=== PATIENT | female | born 1960 | race Caucasian/White ===

== ENCOUNTER 2017-11-19 07:39 | Outpatient (CLI) | payer BC, SELFPAY ==
[2017-11-19 08:19] LABS: Absolute Basophil Count 0.04 k/cumm (0.0-0.2); Absolute Eosinophil Count 0.15 k/cumm (0.0-0.7); Absolute Lymphocyte Count 1.65 k/cumm (1.2-3.4); Absolute Monocyte Count 0.35 k/cumm (0.11-0.7); Basophils % 0.9; Eosinophils % 3.4; HCT 37.5 % (36.0-46.0); HGB 12.2 g/dL (12.0-15.5); Lymphocytes % 37.8; Mean Corp. HGB Concentration 32.5 g/dL (32.0-36.0); Mean Corpuscular Hemoglobin 29.7 pg (27.0-33.0); Mean Corpuscular Volume 91.2 fL (80-95); Mean Platelet Volume 9.1 fL (8.0-11.0); Neutrophils % 49.9; Platelet Count 305 x1000/uL (130-400); RBC 4.11 m/cumm (4.00-5.20); RBC Distribution Width 13.3 % (11.7-14.6); White Blood Cell Count 4.36 k/cumm (4.4-10.8)
[2017-11-19 08:24] LABS: Absolute Neutrophil Count 2.18 k/cumm (1.2-6.7)
[2017-11-19 08:58] LABS: ALT 25 U/L (12-78); AST 20 U/L (15-37); Albumin 3.5 g/dL (3.4-5.0); Alkaline Phosphatase 104 U/L (46-116); Bilirubin, Direct 0.09 mg/dL (0.00-0.20); Bilirubin, Total 0.3 mg/dL (0.2-1.0); C-Reactive Protein 0.57 mg/dL (0.0-0.3); Total Protein 7.4 g/dL (6.4-8.2)
== END 2017-11-19 07:59 ==
PROVIDERS: PCP Internal Medicine; Visit Provider Internal Medicine Gastroenterology
DX: K50.10 Crohn's disease of large intestine without complications (principal)
CPT/HCPCS: 36415; 80076; 85025; 86140

== ENCOUNTER 2017-12-08 06:05 | Outpatient (CLI) | payer BC, SELFPAY ==
[2017-12-08 07:35] LABS: Abs Immature Grans 0.01 k/cumm (0.0-0.09); Absolute Basophil Count 0.05 k/cumm (0.0-0.2); Absolute Lymphocyte Count 2.28 k/cumm (1.2-3.4); Absolute Monocyte Count 0.49 k/cumm (0.11-0.7); Absolute Neutrophil Count 1.63 k/cumm (1.2-6.7); Basophils % 1.1; Eosinophils % 2.2; HCT 38.4 % (36.0-46.0); HGB 12.4 g/dL (12.0-15.5); Immature Grans % 0.2; Mean Corp. HGB Concentration 32.3 g/dL (32.0-36.0); Mean Corpuscular Hemoglobin 29.8 pg (27.0-33.0); Mean Corpuscular Volume 92.3 fL (80-95); Monocytes % 10.7; Neutrophils % 35.8; Platelet Count 288 x1000/uL (130-400); RBC 4.16 m/cumm (4.00-5.20); RBC Distribution Width 13.4 % (11.7-14.6); White Blood Cell Count 4.56 k/cumm (4.4-10.8)
[2017-12-08 07:48] LABS: ALT 28 U/L (12-78); AST 20 U/L (15-37); Albumin 3.3 g/dL (3.4-5.0); Alkaline Phosphatase 94 U/L (46-116); Bilirubin, Direct 0.09 mg/dL (0.00-0.20); Bilirubin, Total 0.4 mg/dL (0.2-1.0); C-Reactive Protein 0.09 mg/dL (0.0-0.3); Total Protein 6.9 g/dL (6.4-8.2)
== END 2017-12-08 06:25 ==
PROVIDERS: PCP Internal Medicine; Visit Provider Internal Medicine Gastroenterology
DX: K50.10 Crohn's disease of large intestine without complications (principal)
CPT/HCPCS: 36415; 80076; 85025; 86140

== ENCOUNTER 2017-12-17 05:49 | Outpatient (CLI) | payer BC, SELFPAY ==
[2017-12-21 15:54] LABS: Adalimumab QN with Reflex Ab 12.8 mcg/mL
== END 2017-12-17 06:09 ==
PROVIDERS: PCP Internal Medicine; Visit Provider Internal Medicine Gastroenterology
DX: K50.80 Crohn's disease of both small and large intestine without complications (principal)
CPT/HCPCS: 36415; 80299

== ENCOUNTER 2018-01-06 10:42 | Outpatient (CLI) | payer BC, SELFPAY ==
[2018-01-06 16:46] LABS: Absolute Basophil Count 0.05 k/cumm (0.0-0.2); Absolute Eosinophil Count 0.11 k/cumm (0.0-0.7); Absolute Lymphocyte Count 2.35 k/cumm (1.2-3.4); Absolute Monocyte Count 0.43 k/cumm (0.11-0.7); Absolute Neutrophil Count 2.12 k/cumm (1.2-6.7); Eosinophils % 2.2; HCT 39.6 % (36.0-46.0); Lymphocytes % 46.4; Mean Corp. HGB Concentration 32.8 g/dL (32.0-36.0); Mean Corpuscular Hemoglobin 29.7 pg (27.0-33.0); Mean Corpuscular Volume 90.6 fL (80-95); Monocytes % 8.5; Neutrophils % 41.9; Platelet Count 260 x1000/uL (130-400); RBC 4.37 m/cumm (4.00-5.20); RBC Distribution Width 12.6 % (11.7-14.6); White Blood Cell Count 5.06 k/cumm (4.4-10.8)
[2018-01-06 19:34] LABS: ALT 35 U/L (12-78); AST 22 U/L (15-37); Albumin 3.6 g/dL (3.4-5.0); Alkaline Phosphatase 76 U/L (46-116); Bilirubin, Direct 0.07 mg/dL (0.00-0.20); Bilirubin, Total 0.2 mg/dL (0.2-1.0); C-Reactive Protein 0.08 mg/dL (0.0-0.3); Total Protein 7.1 g/dL (6.4-8.2)
== END 2018-01-06 11:02 ==
PROVIDERS: PCP Internal Medicine; Visit Provider Internal Medicine Gastroenterology
DX: K50.10 Crohn's disease of large intestine without complications (principal)
CPT/HCPCS: 36415; 80076; 85025; 86140

== ENCOUNTER 2018-02-05 00:58 | Outpatient (CLI) | payer BC, SELFPAY ==
[2018-02-05 07:38] LABS: Abs Immature Grans 0.01 k/cumm (0.0-0.09); Absolute Basophil Count 0.03 k/cumm (0.0-0.2); Absolute Eosinophil Count 0.09 k/cumm (0.0-0.7); Absolute Lymphocyte Count 2.14 k/cumm (1.2-3.4); Absolute Monocyte Count 0.43 k/cumm (0.11-0.7); Absolute Neutrophil Count 2.12 k/cumm (1.2-6.7); Basophils % 0.6; Eosinophils % 1.9; HCT 37.6 % (36.0-46.0); HGB 12.3 g/dL (12.0-15.5); Immature Grans % 0.2; Lymphocytes % 44.4; Mean Corp. HGB Concentration 32.7 g/dL (32.0-36.0); Mean Corpuscular Hemoglobin 29.8 pg (27.0-33.0); Mean Platelet Volume 8.9 fL (8.0-11.0); Monocytes % 8.9; Platelet Count 300 x1000/uL (130-400); RBC 4.13 m/cumm (4.00-5.20); RBC Distribution Width 12.6 % (11.7-14.6); White Blood Cell Count 4.82 k/cumm (4.4-10.8)
[2018-02-05 09:40] LABS: ALT 33 U/L (12-78); AST 20 U/L (15-37); Albumin 3.6 g/dL (3.4-5.0); Alkaline Phosphatase 73 U/L (46-116); Bilirubin, Direct 0.08 mg/dL (0.00-0.20); Bilirubin, Total 0.3 mg/dL (0.2-1.0); C-Reactive Protein 0.13 mg/dL (0.0-0.3); Total Protein 6.9 g/dL (6.4-8.2)
[2018-02-05 10:31] LABS: Vitamin B12 396 pg/mL (193-986)
[2018-02-08 22:04] LABS: Adalimumab QN with Reflex Ab 11.9 mcg/mL
== END 2018-02-05 01:18 ==
PROVIDERS: PCP Internal Medicine; Visit Provider Internal Medicine Gastroenterology
DX: K50.10 Crohn's disease of large intestine without complications (principal); K50.119 Crohn's disease of large intestine with unspecified complications; K50.80 Crohn's disease of both small and large intestine without complications
CPT/HCPCS: 36415; 80076; 80299; 82607; 85025; 86140

== ENCOUNTER 2018-02-22 01:22 | Outpatient (CLI) | payer BC, SELFPAY ==
--- NOTE | 2018-02-22 12:30 | DI.MAMMO_ITS ---
SYMPTOMS/DIAGNOSIS: SCREENING, Z12.31 MAMMOGRAMS: Mammograms were interpreted according to the usual protocol including computer analysis with CAD system, tomosynthesis and C view imaging. Comparison is with the prior examinations. No suspicious masses or microcalcifications are seen. There is no definite evidence of malignancy. IMPRESSION: Negative mammogram. Routine screening is recommended. Category 1, breast density B. MQSA ASSESSMENT OF FINDINGS: Negative. Category 1. Patient will receive a letter notifying them of these results. BI-RADS category B. There are scattered areas of fibroglandular density.
== END 2018-02-22 01:42 ==
PROVIDERS: PCP Internal Medicine; Visit Provider Internal Medicine
DX: Z12.31 Encounter for screening mammogram for malignant neoplasm of breast (principal)
CPT/HCPCS: 77063; 77067

== ENCOUNTER 2018-03-03 10:33 | Outpatient (CLI) | payer BC, SELFPAY ==
[2018-03-03 17:04] LABS: Absolute Basophil Count 0.03 k/cumm (0.0-0.2); Absolute Eosinophil Count 0.15 k/cumm (0.0-0.7); Absolute Lymphocyte Count 2.37 k/cumm (1.2-3.4); Absolute Neutrophil Count 2.91 k/cumm (1.2-6.7); Basophils % 0.5; Eosinophils % 2.5; HCT 37.3 % (36.0-46.0); HGB 12.3 g/dL (12.0-15.5); Lymphocytes % 39.8; Mean Corpuscular Hemoglobin 29.9 pg (27.0-33.0); Mean Corpuscular Volume 90.8 fL (80-95); Monocytes % 8.4; Neutrophils % 48.8; Platelet Count 276 x1000/uL (130-400); RBC 4.11 m/cumm (4.00-5.20); RBC Distribution Width 12.7 % (11.7-14.6); White Blood Cell Count 5.96 k/cumm (4.4-10.8)
[2018-03-03 17:38] LABS: ALT 37 U/L (12-78); AST 24 U/L (15-37); Albumin 3.7 g/dL (3.4-5.0); Alkaline Phosphatase 78 U/L (46-116); Bilirubin, Direct 0.06 mg/dL (0.00-0.20); Bilirubin, Total 0.2 mg/dL (0.2-1.0); C-Reactive Protein 0.05 mg/dL (0.0-0.3); Total Protein 7.2 g/dL (6.4-8.2)
== END 2018-03-03 10:53 ==
PROVIDERS: PCP Internal Medicine; Visit Provider Internal Medicine Gastroenterology
DX: K50.10 Crohn's disease of large intestine without complications (principal)
CPT/HCPCS: 36415; 80076; 85025; 86140

== ENCOUNTER 2018-11-09 14:52 | Outpatient (REF) | payer BC, SELFPAY ==
[2018-11-12 18:22] LABS: Calprotectin 136.6 mcg/g
== END 2018-11-09 15:12 ==
LOC: LBN 14:52
PROVIDERS: PCP Internal Medicine; Visit Provider Nurse Practitioner Adult Health
DX: K50.811 Crohn's disease of both small and large intestine with rectal bleeding (principal)
CPT/HCPCS: 83993

== ENCOUNTER 2019-05-19 07:44 | Outpatient (REF) | payer BC, SELFPAY ==
[2019-05-20 21:45] LABS: Calprotectin 115.3 mcg/g
== END 2019-05-19 08:04 ==
LOC: LBN 07:44
PROVIDERS: PCP Internal Medicine; Visit Provider Nurse Practitioner Adult Health
DX: K50.811 Crohn's disease of both small and large intestine with rectal bleeding (principal)
CPT/HCPCS: 83993; 87324

== ENCOUNTER 2019-06-16 01:35 | Outpatient (CLI) | payer BC, SELFPAY ==
[2019-06-20 21:59] LABS: Adalimumab QN with Reflex Ab 14.1 mcg/mL
== END 2019-06-16 01:55 ==
PROVIDERS: PCP Internal Medicine; Visit Provider Nurse Practitioner Adult Health
DX: K50.811 Crohn's disease of both small and large intestine with rectal bleeding (principal)
CPT/HCPCS: 36415; 83520

== ENCOUNTER 2019-09-12 00:32 | Outpatient (CLI) | payer BC, SELFPAY ==
--- NOTE | 2019-09-12 12:15 | DI.MAMMO_ITS ---
EXAM: MAMMO SCREENING CLINICAL HISTORY: screening, Z12.39 TECHNIQUE: Mammograms were interpreted according to the usual protocol including computer analysis w [employer] CAD system, tomosynthesis and C-view imaging. COMPARISON: 2010 through 2017 FINDINGS: The breasts are composed of scattered fibroglandular densities, Breast Density category B. No suspicious masses or suspicious microcalcifications are seen. Scarring is again noted in the suba reolar region of the right breast. No skin thickening or abnormal axillary lymph nodes are seen. There has been no significant change from prior exams. IMPRESSION: BI-RADS Category 2 - Benign Findings Yearly screening mammography is recommended. Breast Density Category B, scattered fibroglandular densities.
== END 2019-09-12 00:52 ==
PROVIDERS: PCP Internal Medicine; Visit Provider Internal Medicine
DX: Z12.31 Encounter for screening mammogram for malignant neoplasm of breast (principal)
CPT/HCPCS: 77063; 77067

== ENCOUNTER 2020-09-14 04:16 | Outpatient (CLI) | payer BC, SELFPAY ==
--- NOTE | 2020-09-14 06:45 | DI.MAMMO_ITS ---
Exam(s) MAMMO SCREENING EXAM: MAMMO SCREENING CLINICAL HISTORY: screening,Z12.39 TECHNIQUE: Mammograms were interpreted according to the usual protocol including computer analysis w [employer] CAD system, tomosynthesis and C-view imaging. COMPARISON: 2010 through 2019 FINDINGS: The breasts are composed of scattered fibroglandular densities, Breast Density category B. No suspicious masses or suspicious microcalcifications are seen. Scarring in the subareolar region o f the right breast and upper outer left breast. No skin thickening or abnormal axillary lymph nodes are seen. There has been no significant change from prior exams. IMPRESSION: BI-RADS Cat 2 - Benign Findings Yearly screening mammography is recommended. Breast Density - Category B, scattered fibroglandular densities. A negative radiographic report should not delay biopsy if a dominant or clinically suspicious mass is present. Up to ten percent of cancers are not identified on mammography. A negative report may reinforce clinical impression. Adenosis and dense breasts may obscure an underlying neoplasm. False positive reports average 6 to 10%. Patient will receive a letter notifying them of these results.
== END 2020-09-14 04:36 ==
PROVIDERS: PCP Internal Medicine; Visit Provider Internal Medicine
DX: Z12.31 Encounter for screening mammogram for malignant neoplasm of breast (principal); R92.8 Other abnormal and inconclusive findings on diagnostic imaging of breast
CPT/HCPCS: 77063; 77067

== ENCOUNTER 2020-09-26 14:40 | Outpatient (CLI) | payer BC, SELFPAY ==
--- NOTE | 2020-09-26 13:45 | DI.RAD_ITS ---
Exam(s) XR HIP RT COMPLETE AP PELVIS EXAM: XR HIP RT COMPLETE AP PELVIS CLINICAL HISTORY: Rt hip pain, M25.551. TECHNIQUE: 2D digital imaging was performed. COMPARISON: No exams were available for comparison FINDINGS: There is no evidence of pelvic or hip fracture. No hip joint space narrowing. However, there is a c orticated calcification just above the greater trochanter of the right hip which measures 7 by 2 mill imeters this is corticated and therefore unlikely to be an acute fracture fragment. Possibly capsula r calcification. There is no narrowing of either hip joint space. No osteophytes evident. Bone den sity is normal. No osseous lesions. Sacroiliac joints unremarkable. IMPRESSION: DATA REPOSITORY: RADIATION DOSE DELIVERED:
== END 2020-09-26 15:00 ==
PROVIDERS: PCP Internal Medicine; Visit Provider Internal Medicine
DX: M25.551 Pain in right hip (principal)
CPT/HCPCS: 73502

== ENCOUNTER 2020-12-26 03:53 | Outpatient (CLI) | payer BC, SELFPAY ==
[2020-12-26 08:51] LABS: Calculated LDL 178 mg/dL (<100); Cholesterol 289 mg/dL (<200); HDL Cholesterol 91 mg/dL (40-60); Triglyceride 104 mg/dL (<150); Vitamin B12 273 pg/mL (193-986)
== END 2020-12-26 03:54 | disposition home or self-care (01) ==
LOC: LBO 03:54
PROVIDERS: PCP Internal Medicine; Visit Provider Internal Medicine
DX: K50.90 Crohn's disease, unspecified, without complications (principal); Z13.220 Encounter for screening for lipoid disorders
CPT/HCPCS: 36415; 80061; 82607

== ENCOUNTER 2021-06-03 11:12 | Outpatient (CLI) | payer BC, SELFPAY ==
--- NOTE | 2021-06-03 14:15 | DI.RAD_ITS ---
Exam(s) XR CHEST 2V PA LATERAL EXAM: XR CHEST 2V PA LATERAL CLINICAL HISTORY: CROHNS DISEASE,K50.811,ON ANTI TNF,RECENT POS QUANT GOLD, ? TB CHANGES TECHNIQUE: 2D digital imaging was performed. COMPARISON: No exams were available for comparison FINDINGS: MEDIASTINUM: Normal. No visible adenopathy. No mediastinal calcifications. HEART: Normal. PULMONARY VASCULATURE: Normal. LUNGS: Clear. No visible nodules. No visible interstitial changes. PLEURAL SPACE: No pleural effusion or pneumothorax. BONE:Unremarkable for age. IMPRESSION: No acute abnormality. No findings to suggest TB. DATA REPOSITORY: RADIATION DOSE DELIVERED:
== END 2021-06-03 11:32 ==
PROVIDERS: PCP Internal Medicine; Visit Provider Internal Medicine Gastroenterology
DX: K50.811 Crohn's disease of both small and large intestine with rectal bleeding (principal); Z79.899 Other long term (current) drug therapy; R76.11 Nonspecific reaction to tuberculin skin test without active tuberculosis
CPT/HCPCS: 71046

== ENCOUNTER 2021-12-10 01:52 | Outpatient (CLI) | payer BC, SELFPAY ==
[2021-12-10 07:28] LABS: Abs Immature Grans 0.01 10^3/uL (0.0-0.06); Absolute Basophil Count 0.06 10^3/uL (0.0-0.2); Absolute Eosinophil Count 0.29 10^3/uL (0.0-0.7); Absolute Lymphocyte Count 2.57 10^3/uL (1.2-3.4); Absolute Monocyte Count 0.47 10^3/uL (0.1-0.8); Absolute Neutrophil Count 2.27 10^3/uL (1.2-6.7); Basophils % 1.1; Eosinophils % 5.1; HCT 38.8 % (36.0-46.0); HGB 12.7 g/dL (11.2-15.7); Immature Grans % 0.2; Lymphocytes % 45.3; MCH 30.2 pg (27.0-33.0); MCHC 32.7 % (32.0-36.0); MCV 92 fL (80-95); MPV 9.6 fL (8.0-11.0); Monocytes % 8.3; Platelet Count 216 10^3/uL (130-400); RDW 11.9 % (11.7-14.6); RDW-SD 40.2 fL; WBC 5.67 10^3/uL (4.4-10.8)
[2021-12-10 08:42] LABS: Calculated LDL 139 mg/dL (<100); Cholesterol 259 mg/dL (<200); HDL Cholesterol 100 mg/dL (40-60); Triglyceride 103 mg/dL (<150)
[2021-12-10 08:45] LABS: ALT 30 U/L (14-59); AST 22 U/L (15-37); Albumin 3.7 g/dL (3.4-5.0); Alkaline Phosphatase 77 U/L (46-116); Bilirubin, Direct 0.1 mg/dL (0.0-0.2); Bilirubin, Total 0.4 mg/dL (0.2-1.0); C-Reactive Protein 0.18 mg/dL (0.0-0.3); Total Protein 7.4 g/dL (6.4-8.2)
== END 2021-12-10 01:53 | disposition home or self-care (01) ==
LOC: LBO 01:53
PROVIDERS: Internal Medicine Gastroenterology; PCP Internal Medicine; Visit Provider Internal Medicine
DX: E78.00 Pure hypercholesterolemia, unspecified (principal); K50.119 Crohn's disease of large intestine with unspecified complications
CPT/HCPCS: 36415; 80061; 80076; 85025; 86140

== ENCOUNTER → 2022-01-23 02:02 | Outpatient (CLI) | payer BC, SELFPAY ==
--- NOTE | 2022-01-23 08:27 | DI.MAMMO_ITS ---
Exam(s) MAMMO SCREENING EXAM: MAMMO SCREENING CLINICAL HISTORY: screening,Z12.39 TECHNIQUE: Mammograms were interpreted according to the usual protocol including computer analysis w [facility] [employer] system, tomosynthesis and C-view imaging. COMPARISON: FINDINGS: The breasts are of moderate density with somewhat asymmetrical distribution of fibroglandular tissue. There are multiple areas nodularity in the left breast, unchanged from prior examinations including September 2020. No new mass or clumped microcalcification identified in either breast. IMPRESSION: No specific evidence of malignancy at this time. Routine screening examinations are suggested at yea rly intervals in this age group according to the ACS ACR guidelines. BI-RADS Category 1 - Negative Breast Density - Category B - Scattered areas of fibroglandular density
== END ==
PROVIDERS: PCP Nurse Practitioner Adult Health; Visit Provider Nurse Practitioner Adult Health
DX: Z12.31 Encounter for screening mammogram for malignant neoplasm of breast (principal)
CPT/HCPCS: 77063; 77067

== ENCOUNTER 2022-07-17 03:16 | Outpatient (CLI) | payer BC, SELFPAY ==
[2022-07-17] MEDS: Albuterol HFA 18 GM 200 PUFF INH IH (11:37)
[2022-07-17] MEDS: Inhaler, Assist Device 1 EACH MC (11:37)
--- NOTE | 2022-07-18 13:09 | W.PFT ---
Date of service: 07/17/22 Time of Service: 10:04 Pulmonary Function Test Result Indications: Wheezing Interpretation Spirometry: There is no airflow limitation. Ther eis no significant bronchodilator response. Lung Volumes: Normal lung volumes Diffusion Capacity: Normal diffusion Airway Pressure: Normal airways resistance Impression Normal pulmonary function testing. Clinical Correlation therefore is recommended.
== END 2022-07-17 03:17 | disposition home or self-care (01) ==
LOC: RT 03:16
PROVIDERS: PCP Nurse Practitioner Adult Health; Visit Provider Nurse Practitioner Adult Health
DX: Z82.5 Family history of asthma and other chronic lower respiratory diseases (principal); Z87.891 Personal history of nicotine dependence; J45.909 Unspecified asthma, uncomplicated; Z77.22 Contact with and (suspected) exposure to environmental tobacco smoke (acute) (chronic)
CPT/HCPCS: 94060; 94726; 94729

== ENCOUNTER → 2023-02-03 01:24 | Outpatient (CLI) | payer BC, SELFPAY ==
--- NOTE | 2023-02-03 08:30 | DI.MAMMO_ITS ---
Exam(s) MAMMO SCREENING EXAM: MAMMO SCREENING CLINICAL HISTORY: screening,Z12.39. TECHNIQUE: Bilateral full field digital CC and MLO mammographic images were obtained with 3D tomosyn thesis and utilizing computer aided detection (CAD). COMPARISON: Prior mammograms were reviewed. FINDINGS: No new right breast findings. In the left breast there are multiple small benign-appearing unchanged nodular densities. However, in the retroareolar region slightly lateral of center there is a 7 x 5 mm nodular density lo cated 2 cm in from the nipple, lateral of center which appears more prominent than on prior mammogram s and may represent significant nodule. No malignant-appearing microcalcification groups in this region nor elsewhere in either breast There is no significant architectural distortion nor skin thickening-retraction. IMPRESSION: 1. No radiographic evidence of malignancy in the right breast. 2. Asymmetric density-possible nodule larger than previous located anteriorly, lateral of center in t he left breast as described above. Spot compression view and ultrasound recommended BI-RADS Category 0 - Assessment Incomplete: Need additional imaging evaluation Breast Density - Category B - Scattered areas of fibroglandular density Breast density Category C or D implies that the patient has dense breast tissue. Dense breast tissue can make it harder to find cancer on a mammogram. Dense breast tissue is also associated with an incr eased risk of breast cancer. This information about the result of the mammogram report was provided to the patient to raise their awareness. Use this report when you speak with the patient about their risks for breast cancer, which includes their family history. At that time, you may recommend additional screening tests (Ultrasoun d or MRI) as these tests may add significant information. A negative radiographic report should not delay biopsy if a dominant or clinically suspicious mass is present. Up to ten percent of cancers are not identified on mammography. A negative report may reinforce clinical impression. Adenosis and dense breasts may obscure an underlying neoplasm. False positive reports average 6 to 10%. Patient will receive a letter notifying them of these results.
== END ==
PROVIDERS: PCP Nurse Practitioner Adult Health; Visit Provider Nurse Practitioner Adult Health
DX: Z12.31 Encounter for screening mammogram for malignant neoplasm of breast (principal); R92.8 Other abnormal and inconclusive findings on diagnostic imaging of breast
CPT/HCPCS: 77063; 77067

== ENCOUNTER → 2023-02-09 02:22 | Outpatient (CLI) | payer BC, SELFPAY ==
--- NOTE | 2023-02-09 | DI.MAMMO_ITS ---
Exam(s) MG MAMMO SCREEN CALL BACK UNI US BREAST LT COMPLETE EXAM: MG MAMMO SCREEN CALL BACK UNI-LEFT THE LEFT BREAST ULTRASOUND CLINICAL HISTORY: ASYMMETRIC DENSITY POSSIBLE NODULE LEFT BREAST R92.8 ABNL MAMMO. TECHNIQUE: Unilateral LEFT BREAST spot mammographic images obtained with 3D tomosynthesisand [employer] ng computer aided detection (CAD). . Complete LEFT breast Ultrasound was also performed, including all 4 quadrants, the retroareolar regio n, and the ipsilateral axilla. COMPARISON: Prior mammograms were reviewed. This additional imaging was performed due to findings described on the recent screening mammogram of 02/03/23. FINDINGS: DIAGNOSTIC MAMMOGRAM: Additional mammographic views performed todaydo not dissipate the finding described on the recent scr eening mammogram COMPLETE LEFT BREAST ULTRASOUND: Ultrasound performed today reveals a 6 x 4 millimeter benign microcyst at the 1 o'clock position, briana roximately 8 cm in from the nipple. At the 12 o'clock position there is a 7 x 4 millimeter finding intimately associated with a retroareo lar duct which appears to correspond to the finding on the mammogram and has appearance of a conglome ration of microcysts. Increased associated through transmission. No decreased through transmission. All findings in the 4 quadrants of the left breast. Scanning of the ipsilateral axilla reveals no significant adenopathy. IMPRESSION: 1. Benign-appearing left breast findings as described above. Appropriate follow-up as discussed by myself with the patient today is repeat left breast imaging in 6 months, to include repeat left breast mammogram and ultrasound.. The patient was informed of these findings and recommendations by myself prior to leaving the departm ent today. BI-RADS Category 3 - 6 month - Probably Benign Finding: Recommend follow-up mammography in 6 months Breast Density - Category B - Scattered areas of fibroglandular density Breast density Category C or D implies that the patient has dense breast tissue. Dense breast tissue can make it harder to find cancer on a mammogram. Dense breast tissue is also associated with an incr eased risk of breast cancer. This information about the result of the mammogram report was provided to the patient to raise their awareness. Use this report when you speak with the patient about their risks for breast cancer, which includes their family history. At that time, you may recommend additional screening tests (Ultrasoun d or MRI) as these tests may add significant information. A negative radiographic report should not delay biopsy if a dominant or clinically suspicious mass is present. Up to ten percent of cancers are not identified on mammography. A negative report may reinforce clinical impression. Adenosis and dense breasts may obscure an underlying neoplasm. False positive reports average 6 to 10%. Patient will receive a letter notifying them of these results.
== END ==
PROVIDERS: PCP Nurse Practitioner Adult Health; Visit Provider Nurse Practitioner Adult Health
DX: Z12.31 Encounter for screening mammogram for malignant neoplasm of breast (principal); N60.01 Solitary cyst of right breast
CPT/HCPCS: 76642; 77063; 77067

== ENCOUNTER 2023-03-03 03:34 | Outpatient (CLI) | payer BC, SELFPAY ==
[2023-03-03 08:20] LABS: Vitamin D 25 Total 26.9 ng/mL (30-100)
[2023-03-03 08:24] LABS: Anion Gap 4.9 mmol/L (3-11); BUN 21 mg/dL (7-18); CO2 30.1 mmol/L (21.0-32.0); CREATININE 0.7 mg/dL (0.55-1.02); Calcium 8.8 mg/dL (8.5-10.1); Calculated LDL 151 mg/dL (<100); Chloride 105 mmol/L (98-107); Cholesterol 267 mg/dL (<200); Estimated GFR 97.12 (mL/min/1.73m2); Glucose 100 mg/dL (74-106); HDL Cholesterol 96 mg/dL (40-60); Potassium 4.3 mmol/L (3.5-5.1); Sodium 140 mmol/L (136-145); Triglyceride 103 mg/dL (<150); Vitamin B12 1122 pg/mL (193-986)
== END 2023-03-03 03:35 | disposition home or self-care (01) ==
LOC: LBO 03:34
PROVIDERS: Absent Provider Nurse Practitioner Adult Health; PCP Nurse Practitioner Adult Health; Visit Provider Nurse Practitioner Adult Health
DX: Z82.62 Family history of osteoporosis (principal); E53.8 Deficiency of other specified B group vitamins; E78.00 Pure hypercholesterolemia, unspecified
CPT/HCPCS: 36415; 80048; 80061; 82306; 82607

== ENCOUNTER → 2023-07-28 11:07 | Outpatient (CLI) | payer BC, SELFPAY ==
--- NOTE | 2023-07-28 11:34 | DI.RAD_ITS ---
Exam(s) XR CHEST 2V PA LATERAL EXAM: XR CHEST 2V PA LATERALzz CLINICAL HISTORY: BRONCHITIS, J40 TECHNIQUE: 2D digital imaging was performed. Two views. COMPARISON: No exams were available for comparison FINDINGS: HEART: Normal size. Aorta: Not dilated. PULMONARY VASCULATURE: Normal. LUNGS: Clear. PLEURAL SPACE: No pleural effusion or pneumothorax. BONE:Unremarkable for age. Soft tissues: Unremarkable. IMPRESSION: No acute abnormality. DATA REPOSITORY: RADIATION DOSE DELIVERED:
== END ==
PROVIDERS: PCP Nurse Practitioner Adult Health; Visit Provider Internal Medicine Gastroenterology
DX: J40 Bronchitis, not specified as acute or chronic (principal)
CPT/HCPCS: 71046

== ENCOUNTER → 2023-08-11 01:01 | Outpatient (CLI) | payer BC, SELFPAY ==
--- NOTE | 2023-08-11 08:30 | DI.MAMMO_ITS ---
Exam(s) US BREAST LT COMPLETE MG MAMMO DIAGNOSTIC UNI EXAM: MG MAMMO DIAGNOSTIC UNI-LEFT AND COMPLETE LEFT BREAST ULTRASOUND CLINICAL HISTORY: f/u abnormal, R92.8, f/u abnl mammo lt breast. TECHNIQUE: Unilateral left breast cc and MLO mammographic images were obtained with 3D tomosynthesis technique and utilizing computer aided detection (CAD). Complete left breast ultrasound was performed including all 4 quadrants as well as the axillary regio n. COMPARISON: Prior mammograms were reviewed, the most recent being 02/03/2023 was followed up by lorena keltic study on 02/09/2023. Ultrasound of 02/09/2023 was also reviewed. FINDINGS: DIAGNOSTIC LEFT BREAST MAMMOGRAM: Findings are unchanged from 01/26/2023. The relatively retroareolar region finding is unchanged in s ize and configuration as are the chronically present benign-appearing nodules in the upper outer quad rant. We proceeded with ultrasound THE LEFT BREAST ULTRASOUND: Findings are unchanged from the ultrasound exam of 02/09/2023. At the 1 o'clock position there is an unchanged 6 x 4 mm benign microcyst. At the 12 o'clock position the previously described 7 x 4 mm finding intimately associated with retro areolar ducts is again noted and appears unchanged and has appearance of a small conglomeration of mi crocysts. Obvious solid papilloma evident nor other worrisome lesion evident ultrasound. At the 3 o'clock position there is a small benign intramammary lymph node measuring 4 x 3 mm noted. IMPRESSION: 1. Stable benign-appearing left breast mammogram and ultrasound findings, as described above Appropriate follow-up is to keep this patient on her yearly mammogram schedule, implying the next velma ateral mammogram would be in January 2024, with earlier imaging if a self detected breast change is noted. The patient elected not to be informed informed of the findings and follow-up recommendations prior t o leaving the department today. BI-RADS Category 2 - Benign Findings Breast Density - Category B - Scattered areas of fibroglandular density Breast density Category C or D implies that the patient has dense breast tissue. Dense breast tissue can make it harder to find cancer on a mammogram. Dense breast tissue is also associated with an incr eased risk of breast cancer. This information about the result of the mammogram report was provided to the patient to raise their awareness. Use this report when you speak with the patient about their risks for breast cancer, which includes their family history. At that time, you may recommend additional screening tests (Ultrasoun d or MRI) as these tests may add significant information. A negative radiographic report should not delay biopsy if a dominant or clinically suspicious mass is present. Up to ten percent of cancers are not identified on mammography. A negative report may reinforce clinical impression. Adenosis and dense breasts may obscure an underlying neoplasm. False positive reports average 6 to 10%. Patient will receive a letter notifying them of these results.
== END ==
PROVIDERS: PCP Nurse Practitioner Adult Health; Visit Provider Nurse Practitioner Adult Health
DX: R92.8 Other abnormal and inconclusive findings on diagnostic imaging of breast (principal); Z12.31 Encounter for screening mammogram for malignant neoplasm of breast
CPT/HCPCS: 76642; 77061; 77065; G0279

== ENCOUNTER 2023-12-17 00:54 | Outpatient (CLI) | payer BC, SELFPAY ==
--- NOTE | 2023-12-17 12:15 | DI.DEXA_ITS ---
Exam(s) XR DEXA BONE DENSITY W/WO SALOMON EXAM: XR DEXA BONE DENSITY W/WO SALOMON CLINICAL HISTORY: assess for osteoporosis in postmenopausal woman,family h/o osteoporosis, TECHNIQUE: Routine DEXA evaluation of the lumbar spine, hip, or forearm. COMPARISON: No exams were available for comparison FINDINGS: Performed on a Hologic unit. Lateral image: No compression fracture evident. Lumbar Spine total T-score: -2.2 Hip total T-score:-0.7 Independent reading at the level of the femoral neck yields T-score of -1.5 Forearm total T-score: -1.5 IMPRESSION: Bone mineral density measures in the osteopenia range. Fracture risk is moderate. Note: Any spine fracture indicates 5x risk for subsequent spine fracture and 2x risk for subsequent h ip fracture. World Health Organization criteria for BMD interpretation classify patients: Normal...... T- Score at or above -1.0 Osteopenic... T- Score between -1.0 and -2.5 Osteoporosis... T-Score at or below -2.5
== END 2023-12-17 01:14 ==
PROVIDERS: PCP Nurse Practitioner Adult Health; Visit Provider Nurse Practitioner Adult Health
DX: Z13.820 Encounter for screening for osteoporosis (principal); M81.0 Age-related osteoporosis without current pathological fracture
CPT/HCPCS: 77080

== ENCOUNTER 2024-02-08 01:51 | Outpatient (CLI) | payer BC, SELFPAY ==
--- NOTE | 2024-02-08 07:00 | DI.MAMMO_ITS ---
Exam(s) MAMMO SCREENING EXAM: MAMMO SCREENING CLINICAL HISTORY: screening,Z12.39 TECHNIQUE: Mammograms were interpreted according to the usual protocol including computer analysis w [employer] CAD system, tomosynthesis and C-view imaging. COMPARISON: 2014 through 11 August 2023 FINDINGS: The breasts are composed of scattered fibroglandular densities, Breast Density category B. No suspicious masses or suspicious microcalcifications are seen. No skin thickening or abnormal axillary lymph nodes are seen. There has been no significant change from prior exams. IMPRESSION: BI-RADS Category 1, Negative mammogram Yearly screening mammography is recommended. Breast Density - Category B, scattered fibroglandular densities. A negative radiographic report should not delay biopsy if a dominant or clinically suspicious mass is present. Up to ten percent of cancers are not identified on mammography. A negative report may reinforce clinical impression. Adenosis and dense breasts may obscure an underlying neoplasm. False positive reports average 6 to 10%. Patient will receive a letter notifying them of these results.
== END 2024-02-08 02:11 ==
LOC: DI 01:51
PROVIDERS: PCP Nurse Practitioner Adult Health; Visit Provider Nurse Practitioner Adult Health
DX: Z12.31 Encounter for screening mammogram for malignant neoplasm of breast (principal); R92.323 Mammographic fibroglandular density, bilateral breasts
CPT/HCPCS: 77063; 77067

== ENCOUNTER 2024-03-23 03:11 | Outpatient (CLI) | payer MEDICARE, SELFPAY ==
[2024-03-23 11:50] LABS: ALT 28 U/L (14-59); AST 21 U/L (15-37); Albumin 3.8 g/dL (3.4-5.0); Alkaline Phosphatase 80 U/L (46-116); BUN 20 mg/dL (7-18); Bilirubin, Total 0.51 mg/dL (0.2-1.0); CREATININE 0.8 mg/dL (0.55-1.02); Calcium 8.9 mg/dL (8.5-10.1); Calculated LDL 154 mg/dL (<100); Chloride 106 mmol/L (98-107); Cholesterol 284 mg/dL (<200); Estimated GFR 81.72 (mL/min/1.73m2); Glucose 95 mg/dL (74-106); HDL Cholesterol 112 mg/dL (40-60); Potassium 4.3 mmol/L (3.5-5.1); Sodium 142 mmol/L (136-145); Total Protein 7.4 g/dL (6.4-8.2); Triglyceride 90 mg/dL (<150); Vitamin B12 > 2000 pg/mL (193-986); Vitamin D 25 Total 43.6 ng/mL (30-100)
== END 2024-03-23 03:12 | disposition home or self-care (01) ==
PROVIDERS: PCP Nurse Practitioner Adult Health; Visit Provider Nurse Practitioner Adult Health
DX: E78.00 Pure hypercholesterolemia, unspecified (principal); Z91.89 Other specified personal risk factors, not elsewhere classified; E53.8 Deficiency of other specified B group vitamins; Z82.62 Family history of osteoporosis; K50.919 Crohn's disease, unspecified, with unspecified complications
CPT/HCPCS: 36415; 80053; 80061; 82306; 82607

== ENCOUNTER 2024-04-14 02:01 | Outpatient (CLI) | payer MEDICARE, SELFPAY ==
--- OUTSIDE RECORDS SUMMARY | 2024-04-14 02:10 | XMS_ITS | Encounter Summary ---
[place] [address] Care Team Providers Care Department Operations Manager Name Role Phone Karey Robert APRN Primary Care Provider [phone] Encounter Details Date Type Department Care Team (Latest Contact Info) Description 10/30/2023 Specialty [place] [address] Mel Davis, ALIREZA Refill Coordination - 28 day recurrence (adalimumab) for Gastroenterology Social History Tobacco Use Types Packs/Day Years Used Date Smoking Tobacco: Former Cigarettes 0.5 15 1 980 - 1994 Smokeless Tobacco: Never Comments:denies vaping Alcohol Use Standard Drinks/Week Comments Yes 5 (1 standard drink = 0.6 oz pur e alcohol) every other day or so Sex and Gender Information Value Date Recorded Sex Assigned at Female 12/20/2022 7:55 AM EDT Gender Identity Not on file Sexual Orientation Not on file documented as of this encounter Progress Notes * Amanda Charles RPH - 10/30/2023 8:59 AM EDT Clinical Management Plan: Refill Specialty Pharmacy Consultation; Amanda Charles RPH Comprehensive Medication Management (CMM) Ms. Janice Mahoney is a 63 y.o. (1960) female who was contacted in regard to a specialty medication refill reminder. The patient requested a refill of Adalimumab. A review of the medication therapy was performed. The medication was refilled as scheduled, and all medication related questions and concerns were addressed. The specialty pharmacy staff will follow up with the patient 5-7 days prior to next refill. Was a change made to the Care Plan: No Medication Therapy Recommendations No medication therapy recommendations to display Allergies and Drug intolerance: Allergies Allergen Reactions [place] Medication Reconciliation Discrepancies (compared to [facility] med list) No Review Flowsheet 10/30/2023 9:05 AM Assessment What is the name of the specialty medication you are refilling? Humira Are you taking any new medications? No Any new medical conditions? No Any new allergies? No Any new side effects that are bothersome? No Any missed doses since your last fill? 0 How many doses do you have remaining on hand? 1 Would you like a pharmacist to reach out to you to answer any questions? No What date will you need this fill by? 11/05/2023 Adherence: Any missed doses? No Patient understands no changes to current drug regimen were made. Amanda Charles RPH 11/02/23 8:42 AM documented in this encounter Plan of Treatment Upcoming Encounters Date Type Department Care Team (Late st Contact Info) Description 07/18/2024 1:00 PM EDT TH Visit (TeleHealth) [place] [address] Malinda Christopher MD [facility] [place] [address] documented as of this encounter Goals Goal Patient Goal Type Associated Problems Recent Progress Patient-Stated? Author [facility] Medication Compliance and Understanding Patient Facing Action Plan Lakeisha Matos [facility] Note: Achieve and maintain control of Crohn's symptoms as assessed by specialist every 3 to 6 months or more documented as of this encounter Visit Diagnoses Not on filedocumented in this encounter Care Teams Department Operations Manager Relationship Specialty Start Date End Date Karey Robert APRN [address] [place] [address] PCP - General Geriatric Medicine 12/29/22 documented as of this encounter
--- OUTSIDE RECORDS SUMMARY | 2024-04-14 02:10 | XMS_ITS | Encounter Summary ---
Author Organization [facility] [place] [address] Care Team Providers Care Bank Credit Card Collection Clerk Name Role Phone Karey Robert APRN Primary Care Provider [phone] Encounter Details Date Type Department Care Team (Latest Contact Info) Description 12/21/2023 Travel Social History Tobacco Use Types Packs/Day Years Used Date Smoking Tobacco: Former Cigarettes 0.5 15 1 - 1994 Smokeless Tobacco: Never Comments:denies vaping Alcohol Use Standard Drinks/Week Comments Yes 5 (1 standard drink = 0.6 oz pur e alcohol) every other day or so Sex and Gender Information Value Date Recorded Sex Assigned at Female 12/20/2022 7:55 AM EDT Gender Identity Not on file Sexual Orientation Not on file documented as of this encounter Plan of Treatment Upcoming Encounters Date Type Department Care Team (Late st Contact Info) Description 07/18/2024 1:00 PM EDT TH Visit (TeleHealth) [place] [address] Malinda Christopher MD [facility] [place] [address] documented as of this encounter Goals Goal Patient Goal Type Associated Problems Recent Progress Patient-Stated? Author [facility] Medication Compliance and Understanding Patient Facing Action Plan Lakeisha Matos, [facility] Note: Achieve and maintain control of Crohn's symptoms as assessed by specialist every 3 to 6 months or more documented as of this encounter Visit Diagnoses Not on filedocumented in this encounter Care Teams Bank Credit Card Collection Clerk Relationship Specialty Start Date End Date Karey Robert APRN [address] [place] [address] PCP - General Geriatric Medicine 12/29/22 documented as of this encounter
--- OUTSIDE RECORDS SUMMARY | 2024-04-14 02:10 | XMS_ITS | Encounter Summary ---
[place] [address] Care Team Providers Care Database Administrator Name Role Phone Karey Robert APRN Primary Care Provider [phone] Reason for Visit * Reason Comments Prior Authorization Humira PEN 40mg/0.4m l AJKT Encounter Details Date Type Department Care Team (Late st Contact Info) Description 01/18/2024 Specialty [place] [address] Mle Cross, ALIREZA Social History Tobacco Use Types Packs/Day Years [...] as of this encounter Progress Notes * Mel Cross CPHT - 01/18/2024 1:12 PM EST [facility], Medication Prior Authorization Submission Patient: Janice Mahoney Patient : 1960 Patient Address: [address] [facility] [address] (home) Medication Name: HUMIRA(CF) PEN 40 MG/0.4 ML SUBCUTANEOUS KIT Medication ID: [id number] Subscriber Insurance: [facility] Subscriber Insurance Comment: Phone: [phone] Fax: Physician: Malinda GARNICA Physician Comment: Sent Via: [facility] Andujar: [id number] Ref/Case/PA#: Medication Strength Frequency Requested: Humira PEN 40mg/0.4ml AJKT, Inject 0.4ml (40mg) subctutaneously once every 7 days. Qty/Day Supply: 07/04 New Start: Renewal Diagnosis & ICD-10 Code: K50.819 Crohn's Disease Patient Notified: No Submission Notes: - PA submitted through [facility] for renewal of Humira PEN 40mg/0.4ml AJKT, qty 07/04. Mel Cross CPHT 01/18/24 1:15 PM * Valery Arthur CPHT - 01/18/2024 1:12 PM EST [facility], Prior Authorization Approval Medication Name: HUMIRA(CF) PEN 40 MG/0.4 ML SUBCUTANEOUS KIT Medication ID: [id number] Approval Dates: 01/18/2024 to 04/19/2024 Insurance requirements/notes: - Humira 40mg/0.4ml PNKT PA Approved through 04/19/2024 for 07/04. Fills with . Other Notes: None Case/Reference #: [id number] Approval notification Received via: Copay: $0 Copay assistance: Copay Notes: Insurance mandated Pharmacy: [facility] Fillable at [facility]: Yes Patient Notified: No Pharmacy staff will be reaching out to the patient to inform them [facility] If applicable, a pharmacist will speak with the patient to offer our specialty pharmacy services and to arrange delivery of their medication. Valery Arthur CPHT 01/20/24 8:25 AM documented in this encounter Plan of Treatment Upcoming Encounters Date Type Department Care Team (Late st Contact Info) Description 07/18/2024 1:00 PM EDT TH Visit (TeleHealth) [place] [address] Malinda Garnica MD [facility] [place] [address] documented as of this encounter Goals Goal Patient Goal Type Associated Problems Recent Progress Patient-Stated? Author Home Medication Compliance and Understanding Patient Facing Action Plan Lakeisha Matos, [facility] Note: Achieve and maintain control of Crohn's symptoms as assessed by specialist every 3 to 6 months or more documented as of this encounter Visit Diagnoses Not on filedocumented in this encounter Care Teams Database Administrator Relationship Specialty Start Date End Date Karey Robert APRN [address] [place] [address] PCP - General Geriatric Medicine 12/29/22 documented as of this encounter
--- OUTSIDE RECORDS SUMMARY | 2024-04-14 02:10 | XMS_ITS | Encounter Summary ---
[place] [address] Care Team Providers Care Work From Home Name Role Phone Karey Robert APRN Primary Care Provider [phone] Encounter Details Date Type Department Care Team (Latest Contact Info) Description 03/15/2024 Specialty [place] [address] Valery Arthur CPHT Prior Authorization (adalimumab) for Gastroenterology Social History Tobacco Use Types Packs/Day Years Used Date Smoking Tobacco: Former Cigarettes 0.5 15 1 980 1994 Smokeless Tobacco: Never Comments:denies vaping Alcohol Use Standard Drinks/Week Comments Yes 5 (1 standard drink = 0.6 oz pur e alcohol) every other day or so Sex and Gender Information Value Date Recorded Sex Assigned at Female 12/20/2022 7:55 AM EDT Gender Identity Not on file Sexual Orientation Not on file documented as of this encounter Progress Notes * Valery Arthur CPHT - 03/15/2024 2:56 PM EST [facility], Medication Prior Authorization Patient: Janice Mahoney : 1960 03/15/2024 2:56 PM PA Submission Reason for Prior Authorization Insurance Change Does [facility] complete PA for this office? Yes Office notified No Medication Adalimumab ICD-10 code Crohn's disease of colon with complication K50.119 Dispense Quantity 4 Dispense Units mL Day Supply 28 Insurance Phone [phone] Information sent via M Case/Andujar Number [id number] Patient Notified No Notification Method Not appropriate at this time For any questions relating to this prior authorization please reach out directly to your section's specialty pharmacist, or the specialty pharmacy team at [facility] Valery Arthur CPHT 03/15/24 2:57 PM * Criss Barajas RPH - 03/15/2024 2:56 PM EST [facility], Medication Prior Authorization Patient: Janice Mahoney : 1960 03/17/2024 4:23 PM DIOMEDES Approval Approval Start Date 03/15/2024 Approval End Date 09/12/2024 Case/Andujar Number [id number] Can patient fill with [facility]? Yes Anticipated Pharmacy [facility] Is this a conversion opportunity? No Expected Copay $2000.00 Referral for copay assistance will be completed No Approval Notes Patient has been approved through [employer] Patient Notified Yes Notification Method Spoke to patient For any questions relating to this prior authorization please reach out directly to your section's specialty pharmacist, or the specialty pharmacy team at [facility] Criss Barajas RPH 03/17/24 4:26 PM documented in this encounter Plan of Treatment Upcoming Encounters Date Type Department Care Team (Late st Contact Info) Description 07/18/2024 1:00 PM EDT TH Visit (TeleHealth) [place] [id number] Malinda Christopher MD [facility] [address] documented as of this encounter Goals Goal Patient Goal Type Associated Problems Recent Progress Patient-Stated? Author Home Medication Compliance and Understanding Patient Facing Action Plan Lakeisha Matos, [facility] Note: Achieve and maintain control of Crohn's symptoms as assessed by specialist every 3 to 6 months or more documented as of this encounter Visit Diagnoses Not on filedocumented in this encounter Care Teams Work From Home Relationship Specialty Start Date End Date Karey Robert APRN [address] [place] [address] PCP - General Geriatric Medicine 12/29/22 documented as of this encounter
--- OUTSIDE RECORDS SUMMARY | 2024-04-14 02:10 | XMS_ITS | Encounter Summary ---
[place] [address] Care Team Providers Care Nursing Secretary Name Role Phone Karey Robert APRN Primary Care Provider [phone] Encounter Details Date Type Department Care Team (Latest Contact Info) Description 01/27/2024 Specialty [place] [address] Frannie Araya, [facility] Refill Coordination - 28 day recurrence (adalimumab) [...] as of this encounter Progress Notes * Silverio Mcnamara CPHT - 01/27/2024 8:04 AM EST Clinical Management Plan: Refill Specialty Pharmacy Consultation; Silverio Mcnamara CPHT Comprehensive Medication Management (CMM) Ms. Janice Mahoney [...] Allergies and Drug intolerance: Allergies Allergen Reactions [place] Medication Reconciliation Discrepancies (compared to [facility] med list) No Review Flowsheet 01/28/2024 9:03 AM Assessment What is the name of the specialty medication you are refilling? Humira Are you taking any new medications? No Any new medical conditions? No Any new allergies? No Any new side effects that are bothersome? No Any missed doses since your last fill? 0 Would you like a pharmacist to reach out to you to answer any questions? No What date will you need this fill by? 02/04/2024 Adherence: Any missed doses? No Patient understands no changes to current drug regimen were made. Silverio Mcnamara CPHT 01/28/24 9:03 AM documented in this encounter Plan of Treatment Upcoming Encounters Date Type Department Care Team (Late st Contact Info) Description 07/18/2024 1:00 PM EDT TH Visit (TeleHealth) [place] [address] Malinda Christopher MD [facility] [place] [address] documented as of this encounter Goals Goal Patient Goal Type Associated Problems Recent Progress Patient-Stated? Author [facility] Medication Compliance and Understanding Patient Facing Action Plan Lakeisha Matos, [facility] Note: Achieve and maintain control of Crohn's symptoms as assessed by specialist every 3 to 6 months or more documented as of this encounter Visit Diagnoses Not on filedocumented in this encounter Care Teams Nursing Secretary Relationship Specialty Start Date End Date Karey Robert APRN [address] [place] [address] PCP - General Geriatric Medicine 12/29/22 documented as of this encounter
--- OUTSIDE RECORDS SUMMARY | 2024-04-14 02:10 | XMS_ITS | Encounter Summary ---
Author Organization [facility] [place] [address] Care Team Providers Care Golf Technician Name Role Phone Karey Robert APRN Primary Care Provider [phone] Reason for Visit * Reason Onset Date Comments Medication Refill 07/24/2023 Encounter Details Date Type Department Care Team (Late st Contact Info) Description 07/22/2023 Refill [place] [address] Malinda Christopher MD [facility] [address] Social History Tobacco Use Types Packs/Day Years [...] on file documented as of this encounter Miscellaneous Notes * Telephone Encounter - Nehal Reagan - 07/24/2023 9:25 AM EDT DIOMEDES was approved and [facility] is sending approval to office. approved # [id number] documented in this encounter Plan of Treatment Upcoming Encounters Date Type Department Care Team (Late st Contact Info) Description 07/18/2024 1:00 PM EDT TH Visit (TeleHealth) [place] [address] Malinda Christopher MD [facility] [address] documented as of this encounter Goals Goal Patient Goal Type Associated Problems Recent Progress Patient-Stated? Author Home Medication Compliance and Understanding Patient Facing Action Plan Lakeisha Matos, [facility] Note: Achieve and maintain control of Crohn's symptoms as assessed by specialist every 3 to 6 months or more documented as of this encounter Visit Diagnoses Not on filedocumented in this encounter Care Teams Golf Technician Relationship Specialty Start Date End Date Karey Robert APRN [address] [place] [address] PCP - General Geriatric Medicine 12/29/22 documented as of this encounter
--- OUTSIDE RECORDS SUMMARY | 2024-04-14 02:10 | XMS_ITS | Encounter Summary ---
[place] [address] Care Team Providers Care Lab Analyst Name Role Phone Karey Robert APRN Primary Care Provider [phone] Encounter Details Date Type Department Care Team (Latest Contact Info) Description 08/13/2023 Specialty [place] [address] Chani Ruth RPH One Time Clinical Outreach - Manual (adalimumab) for Gastroenterology Social History Tobacco Use [...] as of this encounter Progress Notes * Chani Ruth RPH - 08/13/2023 11:47 AM EDT Clinical Management Plan: [facility], [facility] Specialty Pharmacy Consultation; Chani Ruth RPH Comprehensive Medication Management (CMM) Janice Mahoney is a very pleasant 63 y.o. female who was contacted today regarding specialty therapy, Humira. We discussed that Medicare Advantage plans often have high copays for biological therapies- Janice has completed a Medicare boot camp and is aware that the max out of pocket cost on a Medicare Advantage plan is $3,000 to $5,000. We then discussed [employer] patient assistance program which we use often in this office. Discussed workflow of having the patient fill out her application and Dr. Christopher filling out his application and submitting to [employer] once patient has transitioned to Medicare and we have confirmation of high copay. Patient currently has the patient portion of the application and wondered if she should complete now - I recommended she hold off until time of submission in case there is an updated form. In the interim patient will continue to fill Humira through current plan at Specialty Pharmacy. Will fill medication likely twice in February with a vacation override so patient has enough medication on hand for transition to medication and application review to [facility]. Chani Ruth RPH 08/13/23 11:48 AM documented in this encounter Plan of Treatment Upcoming Encounters Date Type Department Care Team (Late st Contact Info) Description 07/18/2024 1:00 PM EDT TH Visit (TeleHealth) [place] [address] Malinda Christopher MD [facility] [place] [address] documented as of this encounter Goals Goal Patient Goal Type Associated Problems Recent Progress Patient-Stated? Author Home Medication Compliance and Understanding Patient Facing Action Plan Lakeisha Matos, [facility] Note: Achieve and maintain control of Crohn's symptoms as assessed by specialist every 3 to 6 months or more documented as of this encounter Visit Diagnoses Not on filedocumented in this encounter Care Teams Lab Analyst Relationship Specialty Start Date End Date Karey Robert APRN [address] [place] [address] PCP - General Geriatric Medicine 12/29/22 documented as of this encounter
--- OUTSIDE RECORDS SUMMARY | 2024-04-14 02:10 | XMS_ITS | Encounter Summary ---
[place] [address] Care Team Providers Care Planer Tailer Name Role Phone Karey Robert APRN Primary Care Provider [phone] Encounter Details Date Type Department Care Team (Latest Contact Info) Description 02/22/2024 Specialty Pharmacy Pharmacy at [facility] [address] Jennie Barkley RPH Medication Discontinuation or Transfer (adalimumab) for Gastroenterology, Refill Coordination - 28 day recurrence (adalimumab) [...] as of this encounter Progress Notes * Jennie Barkley RPH - 02/22/2024 10:33 AM EST Clinical Management Plan: Refill Specialty Pharmacy Consultation; Jennie Barkley RPH Comprehensive Medication Management (CMM) Ms. Janice [...] Allergies and Drug intolerance: Allergies Allergen Reactions [place] Medication Reconciliation Discrepancies (compared to [facility] med list) No Review Flowsheet 02/22/2024 10:33 AM Assessment What is the name of the specialty medication you are refilling? Humira Are you taking any new medications? No Any new medical conditions? No Any new allergies? No Any new side effects that are bothersome? No How many doses do you have remaining on hand? 1 Would you like a pharmacist to reach out to you to answer any questions? No What date will you need this fill by? 03/03/2024 Adherence: Any missed doses? No Patient understands no changes to current drug regimen were made. Jennie Barkley Lacy 02/22/24 10:34 AM * Criss Barajas RP - 02/22/2024 10:33 AM EST Specialty Pharmacy Medication Discontinuation or Transfer Comprehensive Medication Management (CMM) Reason for Encounter: Medication Discontinuation/Transfer 03/17/2024 4:30 PM Medication Discontinuation or Transfer Which of the following is applicable Medication Transfer Patient response to therapy Other Comments Referred to [facility] Summary of services provided Benefits investigation, medication access assistance, initial clinicalassessment, follow up clinical assessement (s) , refill management, care plan review prior to dispensing, and 29/09 access to on- call specialty pharmacist Summary of ongoing needs None at this time Referral for additional services No Were instructions provided to patient about discharge/transfer? Yes Is the provider is aware of discontinuation or transfer? Yes Janice Mahoney understands no changes to Medication: Adalimumab were made at the appointment and that [facility] is providing recommendations (summary located at top of note) for provider review and follow up. Of note, if transferring to another specialty pharmacy, a copy of patient's medication profile was offered to accepting pharmacy. Criss Barajas RPH 03/17/24 4:30 PM documented in this encounter Plan of Treatment Upcoming Encounters Date Type Department Care Team (Late st Contact Info) Description 07/18/2024 1:00 PM EDT TH Visit (TeleHealth) [place] [address] Malinda Christopher MD [facility] [place] [address] documented as of this encounter Goals Goal Patient Goal Type Associated Problems Recent Progress Patient-Stated? Author [facility] Medication Compliance and Understanding Patient Facing Action Plan Lakeisha Matos, [facility] Note: Achieve and maintain control of Crohn's symptoms as assessed by specialist every 3 to 6 months or more documented as of this encounter Visit Diagnoses Not on filedocumented in this encounter Care Teams Planer Tailer Relationship Specialty Start Date End Date Karey Robert APRN [address] [facility] [place] [address] PCP - General Geriatric Medicine 12/29/22 documented as of this encounter
--- OUTSIDE RECORDS SUMMARY | 2024-04-14 02:10 | XMS_ITS | Encounter Summary ---
[place] [address] Care Team Providers Care Cigarette Vendor Name Role Phone Karey Robert APRN Primary Care Provider [phone] Encounter Details Date Type Department Care Team (Latest Contact Info) Description 12/24/2023 Specialty [place] [address] Jennie Barkley RPH Refill Coordination - 28 day recurrence (adalimumab) [...] Progress Notes * Jennie Barkley RPH - 12/24/2023 12:21 PM EDT Clinical Management Plan: Refill Specialty Pharmacy [...] Allergies and Drug intolerance: Allergies Allergen Reactions [place] Medication Reconciliation Discrepancies (compared to [facility] med list) No Review Flowsheet 12/24/2023 12:22 PM Assessment What is the name of the [...] date will you need this fill by? 01/07/2024 Adherence: Any missed doses? No Patient understands no changes to current drug regimen were made. Jennie Barkley RPH 12/24/23 12:22 PM documented in this encounter Plan of Treatment Upcoming Encounters Date Type Department Care Team (Late st Contact Info) Description 07/18/2024 1:00 PM EDT TH Visit (TeleHealth) [place] [address] Malinda Christopher MD [facility] [place] [address] documented as of this encounter Goals Goal Patient Goal Type Associated Problems Recent Progress Patient-Stated? Author [facility] Medication Compliance and Understanding Patient Facing Action Plan Lakeisha Matos [facility] Note: Achieve and maintain control of Crohn's symptoms as assessed by specialist every 3 to 6 months or more documented as of this encounter Visit Diagnoses Not on filedocumented in this encounter Care Teams Cigarette Vendor Relationship Specialty Start Date End Date Karey Robert APRN [address] [place] [address] PCP - General Geriatric Medicine 12/29/22 documented as of this encounter
--- OUTSIDE RECORDS SUMMARY | 2024-04-14 02:10 | XMS_ITS | Encounter Summary ---
Author Organization [facility] [place] [address] Care Team Providers Care Honey Extractor Name Role Phone Karey Robert APRN Primary Care Provider [phone] Encounter Details Date Type Department Care Team (Latest Contact Info) Description 07/28/2023 8:30 AM EDT TH Visit (TeleHealth) [place] [id number] Malinda Christopher MD [facility] [place] [address] Bronchitis (Primary Dx); Crohn's disease of small and large intestines with complication; Encounter for monitoring of adalimumab therapy Social History Tobacco Use Types Packs/Day Years Used Date Smoking Tobacco: Former Cigarettes 0.5 15 1 1994 Smokeless Tobacco: Never Comments:denies vaping Alcohol Use Standard Drinks/Week Comments Yes 5 (1 standard drink = 0.6 oz pur e alcohol) every other day or so Sex and Gender Information Value Date Recorded Sex Assigned at Female 12/20/2022 7:55 AM EDT Gender Identity Not on file Sexual Orientation Not on file documented as of this encounter Patient Instructions * Patient Instructions* Malinda Christopher MD - 07/28/2023 8:30 AM EDT # Continue Humira # Next routine labs in ; routine labs should be done ~every 4-5 mos # Will have our pharmacist, Chani Ruth, reach out re transition to Medicare and ramifications re coverage for Humira # Plan for MRE in 2024 # Next colonoscopy in the next 1-2 yrs depending on colo results # Chest x-ray to be done at [facility]; pls follow-up with Ms Robert and skid man at [facility] # Follow-up with me in late Jan or early Feb via tele or in person documented in this encounter Progress Notes * Malinda Christopher MD - 07/28/2023 8:30 AM EDT Images from the original note were not included. [facility] ESTABLISHED PATIENT TELEVISIT Patient Active Problem List Diagnosis Colonic Crohn's with mid small bowel segment Overview Note: Location: Colonic and mid small bowel, Behavior: Inflammatory perianal disease in form of skin tags Symptoms: worsening hemorrhoids April 2017 undergoes excisional hemorrhoidectomy that did not heal 10/02/17: Colonoscopy ([facility] Large perianal inflamed skin tags found on perianal exam. - The descending colon, splenic flexure, transverse colon, hepatic flexure, ascending colon, cecum, appendiceal orifice and terminal ileum are normal. Diverticulosis associated with stricturing in the sigmoid colon and in the descending colon. There was possible subtle inflammation in the rectum and sigmoid. PATH: Sigmoid and rectum: Chronic active colitis with multiple noncaseating granulomas that also involve submucosa 10/29/17 MRE: Approximate 10 cm area of distal descending to sigmoid colon involved with active dz. Second focal segment involving mid small bowel with likely Crohn's disease which appears less severethan the colonic segment MRE 07/2019 - Persistent circumferential wall thickening of 10 cm descending/sigmoid colon with increased transmural and adjacent mesenteric inflammation. New circumferential wall thickening of a 5 cmsegment of distal ileum with transmural enhancement, however, no mesenteric inflammation. [place] 04/2020 - No active Crohn's apart from mild erythema in sigmoid that was inactive on bx. Mild narrowing of the sigmoid colon related to diverticular dx, less likely Crohn's. 3 mm adenomas descending colon. Nl TI. MRE 04/2022 - no enteritis - Incidental mesenteric panniculitis, with slightly increased degree of inflammation and enhancement since 2018. [place] 12/04/22 - Severe diverticulosis from descending to sigmoid. No active Crohn's disease. Path with inactive colitis. Treatments: Started Humira end of 10/2017, 12/17/17 [place] Humira level 12.8, no antibodies on every two week Humira . Repeat [place] Spring 2019 with Ab and low drug level. Repeat Prometheus with level 20 and no Ab. Health Maintenance: 05/28/2021 - pos quant gold. F/U CXR and PPD in Dr Phillips's office neg 10/19/17 TB - Quant gold neg 10/19/17 Hep B negative 01/2018 Shingrix first dose. Second Shingrix July 2018. 01/2018 Pneumococcal (presumed Pneumovax) PCV 2018 Moderna x3 plus booster - last dose 04/2021 Anal pain Clotting disorder Overview Note: Protein C deficiency Diverticulitis of large intestine without perforation or abscess without bleeding Gallstones CURRENT IBD MEDS: Humira weekly INTERVAL HISTORY: Ms Mahoney is doing well. No new intestinal symptoms. Has not had any problems with pain, diarrhea, perianal symptoms since last visit. She controls constipation with a magnesium supplement, and it works well. Never tried MiraLAX because the magnesium seems to work so well for her. She is mostly concerned about cost of medication when she turns 64 on March 08 of this year. Shehas done a lot of research on her own and thinks that a Medicare advantage plan would be the best choice. She also mentions that since starting Humira, in retrospect, she developed wheeziness, now requiring a rescue inhaler. Have been on Proair for the last year - now Ellipta. Whenever she gets a cold, gets bad bronchitis. Think she has had more upper respiratory illnesses over the last year or 2. Seen at [facility] by pulmonology. Describes having what sounds like spirometry testing. Did not have anyrepeat imaging since the chest x-ray done in 2021, which was ordered for an indeterminant quant gold. Of note, T spot has been negative since then, including a couple of months ago. Please see Qorus questionnaire results below for further details re current symptoms. - [facility] Gastro Pre-Visit Questionnaire 07/27/2023 8:46 AM EDT - Filed by Patient Number One Goal/Concern Cost of medication next year when I go on Medicare IBD Dx Crohn's Disease Believe Will Benefit from Tx Change No Avg Liquid/Soft Stool per Day 2 Stool Frequency/Day Normal BM Urgency Last 7 days 0 Abd Pain Severity/Day None Blood in Stool No blood seen BM with Blood Alone No Well-being Generally well ED Visit Due to IBD No Hospitalized for IBD No Current Prednisone Use No Current Opioid Use for IBD No Confidence Level to Manage IBD 10 Q - Dh Ibd Qorus Study Participation 07/27/2023 8:47 AM EDT - Filed by Patient IBD Qorus Study Participant I have previously consented and registered for IBD Qorus IBD Qorus Provider Questionnaire Did you and your patient discuss your patient???s number one concern today? primary concern discussed How recently have you assessed for mucosal healing with endoscopy/imaging? more than 6 months and less than 12 months How recently have you assessed for mucosal healing with fecal calprotectin? never performed/I don???t know At the most recent assessment, had your patient achieved steroid-free mucosal healing? To answer YES, your patient should either have a Rollins endoscopic subscore of 0-1 for UC or no more than a few aphthous ulcers in the ileum and/or colon for CD. Yes Did you discuss steroid-free mucosal healing with your patient today? No When do you next plan to assess for mucosal healing with endoscopy/imaging? longer than 12 months When do you next plan to assess for mucosal healing with fecal calprotectin? I don???t know at thistime Which medication(s) is your patient currently taking for their IBD? Other specified medication(s): Adalimumab If your patient has NOT achieved steroid-free mucosal healing, are you making any treatment changestoday? Other specified treatment change(s): Not relevant - patient has mucosal healing What is your Provider Global Assessment (PGA) for this patient today? Normal Do you believe your patient is at high risk of going to the ED for their IBD within the next month?No Review of systems: 14-point review of systems reviewed and negative except as above. Physical exam: No Physical Examination performed during this telemedicine visit Laboratory studies, imaging, and procedures (my review of prior records): Lab Results Component Value Date WBC 6.2 04/22/2023 RBC 4.13 04/22/2023 HGB 12.5 04/22/2023 HCT 37.8 04/22/2023 MCV 91.5 04/22/2023 MCH 30.3 04/22/2023 MCHC 33.1 04/22/2023 PLATELET 272 04/22/2023 RDWCV 12.3 04/22/2023 Lab Results Component Value Date ALT 27 04/22/2023 AST 25 04/22/2023 ALKPHOS 72 04/22/2023 BILITOT 0.2 04/22/2023 Lab Results Component Value Date CRP <3.0 04/22/2023 Assessment and Plan: Ms. Mahoney is a 63 y.o. 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 Doing very well in symptomatic remission. Last staging was also reassuring. Today, talked mostly about trying to afford medications as she transitions to Medicare at the end of the year and her recent progressive worsening of bronchial symptoms. As far as coverage for her medications, she has done a lot of leg work and research. She thinks that the Medicare advantage plan that she is identified might be her best choice. Will put her in touchwith our pharmacist, Chani Ruth, to look at different options. She has never been on infliximab, and we did touch on the possibility of transitioning to infliximab if that is by far and away the mostfinancially advantageous option for her. As far as her bronchial symptoms are concerned, discussed that Humira has not been strongly associated with drug-induced bronchial or interstitial lung disease. Rather, would be more concerned about the possibility that Humira is increasing frequency of viral infections potentially or, less likely but possible, putting her at risk for atypical pathogens. For this reason, I recommended repeat x-ray to compare to 2021. If it is abnormal, would consider CT scan of the chest. Also mentioned that Crohn's disease itself can very rarely cause bronchiolar and/or interstitial lung disease. One would expect anti-TNF's to treat that, but it would be uncommon for this to come up this late in her course. If her symptoms continue to worsen, there may come a time where we just have to consider switching her to a different medication. At that time would probably consider something like Skyrizi. This would come with its own issues as far as coverage is concerned. Hopeful that we will not get to that point. We discussed the following recommendations that were copied to the After Visit Summary: # Continue Humira # Next routine labs in August/September; routine labs should be done ~every 4-5 mos # Will have our pharmacist, Chani Ruth, reach out re transition to Medicare and ramifications re coverage for Humira # Plan for MRE in 2024 # Next colonoscopy in the next 1-2 yrs depending on colo results # Chest x-ray to be done at [facility]; pls follow-up with Ms Robert and skid man at [facility] # Follow-up with me in late Nov or early Dec via tele or in person The patient was located in [place] at the time of their visit. Omar Christopher MD Process Designerdrywall stripper helper Co-Director, [facility] Section of [place]enter[place] [address] documented in this encounter Plan of Treatment Upcoming Encounters Date Type Department Care Team (Late Contact Info) Description 07/18/2024 1:00 PM EDT TH Visit (TeleHealth) [place] [address] Malinda Christopher MD [facility] [place] [address] documented as of this encounter Goals Goal Patient Goal Type Associated Problems Recent Progress Patient-Stated? Author [facility] [place] Medication Compliance and Understanding Patient Facing Action Plan Lakeisha Matos, [facility] Note: Achieve and maintain control of Crohn's symptoms as assessed by specialist every 3 to 6 months or more documented as of this encounter Visit Diagnoses Diagnosis Bronchitis- Primary Bronchitis, not specified as acute or chronic Crohn's disease of small and large intestines with complication Encounter for monitoring of adalimumab therapy documented in this encounter Care Teams Honey Extractor Relationship Specialty Start Date End Date Karey Robert APRN [address] [place] [address] PCP - General Geriatric Medicine 12/29/22 documented as of this encounter
--- OUTSIDE RECORDS SUMMARY | 2024-04-14 02:10 | XMS_ITS | Encounter Summary ---
[facility] [address] Care Team Providers Care Structural Steel Trades Worker Name Role Phone Karey Robert APRN Primary Care Provider [phone] Encounter Details Date Type Department Care Team (Late st Contact Info) Description 08/27/2023 Telephone [place] [address] Jaimee Moody Social History Tobacco Use Types Packs/Day Years [...] encounter Miscellaneous Notes * Telephone Encounter - Jaimee Moody - 08/27/2023 4:56 PM EDT Initial Call for RISE Study Study Title: A Remote study of Insomnia treatment in Crohn's disease Photogrammetric Technician (PI): Karey Foreman, PhD Study Number: [id number] Objective of visit: Jaimee Sun , research coordinator, spoke to Janice Mahoney over the phone regarding protocol Study [id number]. I informed the patient I was calling with regard to their referralfor the RISE trial which they may be eligible. Assessment/Outcome: Janice Petty Denzel indicated she wanted time to think about the study. Plan: Determine eligibility of the patient for the study. documented in this encounter Plan of Treatment Upcoming Encounters Date Type Department Care Team (Late st Contact Info) Description 07/18/2024 1:00 PM EDT TH Visit (TeleHealth) [place] [address] Malinda Christopher MD [facility] [place] [address] documented as of this encounter Goals Goal Patient Goal Type Associated Problems Recent Progress Patient-Stated? Author [facility] Medication Compliance and Understanding Patient Facing Action Plan Lakeisha Matos, [facility] Note: Achieve and maintain control of Crohn's symptoms as assessed by specialist every 3 to 6 months or more documented as of this encounter Visit Diagnoses Not on filedocumented in this encounter Care Teams Structural Steel Trades Worker Relationship Specialty Start Date End Date Karey Robert APRN [address] [place] [address] PCP - General Geriatric Medicine 12/29/22 documented as of this encounter
--- OUTSIDE RECORDS SUMMARY | 2024-04-14 02:10 | XMS_ITS | Encounter Summary ---
Author Organization [facility] [place] [address] Care Team Providers Care Quality Assurance Name Role Phone JosephKarey briseno ROMULO Primary Care Provider [phone] Encounter Details Date Type Department Care Team (Latest Contact Info) Description 02/02/2024 8:30 AM EST TH Visit (TeleHealth) [place] [address] Malinda Christopher MD [facility] [place] [address] Colonic Crohn's with mid small bowel segment; Encounter for monitoring of adalimumab therapy Social [...] * Patient Instructions* Malinda Christopher MD - 02/02/2024 8:30 AM EST # Continue Humira # Next routine labs upon return from [place] in June # Will plan for MRE in late spring or early summer 2024. To be ordered at next visit. # Pls let us know when [employer] is back in touch re Humira coverage # Next colonoscopy 2024 or 2025, depending on MRE results. # Follow-up via tele with me or Megan Donnelly APRN in July documented in this encounter Progress Notes * Malinda Christopher MD - 02/02/2024 8:30 AM EST [facility] [place] ESTABLISHED PATIENT TELEVISIT Patient Active Problem List Diagnosis Colonic Crohn's with mid small bowel segment Overview Note: Location: Colonic and mid small bowel, Behavior: Inflammatory perianal disease in form of skin tags Symptoms: worsening hemorrhoids April 2017 undergoes excisional hemorrhoidectomy that did not heal 10/02/17: [place] Large perianal inflamed skin tags found on [...] with transmural enhancement, however, no mesenteric inflammation. [place] 04/2020 - No active Crohn's apart from mild erythema in sigmoid that was inactive on bx. Mild narrowing of the sigmoid colon related to diverticular dx, less likely Crohn's. 3 mm adenomas descending colon. Nl TI. MRE 04/2022 - no enteritis - Incidental mesenteric panniculitis, with slightly increased degree of inflammation and enhancement since 2018. [place] 12/04/22 - Severe diverticulosis from descending to sigmoid. No active Crohn's disease. Path with inactive colitis. Treatments: Started Humira end of 10/2017, 12/17/17 [place] Humira level 12.8, no antibodies on every two week Humira . Repeat [place] Spring 2019 with Ab and low drug [...] MEDS: Humira weekly INTERVAL HISTORY: Ms Mahoney follows up for her Crohn's colitis. She is feeling well. Has had no issues at all with abd pain. She has applied for [employer]. Was told that she would not find out until mid Feb. She has alsosigned up for an Advantage plan - with that she would pay for [employer]. Plans on putting in for vacation override in February. Heading to [place] in April and will be back late June Please see Qorus questionnaire results below for further details re current symptoms. - [facility] Gastro Pre-Visit Questionnaire 02/01/2024 10:54 AM EST - Filed by Patient Number One Goal/Concern Insurance coverage IBD Dx Crohn's Disease Believe Will Benefit [...] No Confidence Level to Manage IBD 10 IBD Qorus Provider Questionnaire Did you and your patient discuss your patient???s number one concern today? primary concern discussed How recently have you assessed for mucosal healing with endoscopy/imaging? more than 12 months and less than 3 years How recently have you assessed for mucosal healing with fecal calprotectin? more than 3 years At the most recent assessment, had your patient achieved steroid-free mucosal healing? To answer YES, your patient should either have a Rollins endoscopic subscore of 0-1 for UC or no more than a few aphthous ulcers in the ileum and/or colon for CD. I don't know Did you discuss steroid-free mucosal healing with your patient today? No When do you next plan to assess for mucosal healing with endoscopy/imaging? between 6 and 12 months When do you next plan to assess for mucosal healing with fecal calprotectin? I don???t know at thistime Which medication(s) is your patient currently taking for their IBD? Other specified medication(s): Adalimumab If your patient has NOT achieved steroid-free mucosal healing, are you making any treatment changestoday? Other specified treatment change(s): No treatment change - will decide based on next objective disease assessment (endoscopy/imaging/labs) What is your Provider Global Assessment (PGA) [...] records): Lab Results Component Value Date WBC 6.55 12/21/2023 WBC 6.2 04/22/2023 RBC 4.48 12/21/2023 RBC 4.13 04/22/2023 HGB 13.4 12/21/2023 HGB 12.5 04/22/2023 HCT 41.6 12/21/2023 HCT 37.8 04/22/2023 MCV 92.9 12/21/2023 MCV 91.5 04/22/2023 MCH 29.9 12/21/2023 MCH 30.3 04/22/2023 MCHC 32.2 12/21/2023 MCHC 33.1 04/22/2023 PLATELET 291 12/21/2023 PLATELET 272 04/22/2023 RDWCV 12.4 12/21/2023 RDWCV 12.3 04/22/2023 Lab Results Component Value Date ALT 23 12/21/2023 AST 20 12/21/2023 ALKPHOS 83 12/21/2023 BILITOT 0.3 12/21/2023 Lab Results Component Value Date CRP <3.0 12/21/2023 Assessment and Plan: Ms Mahoney has Crohn's colitis. On her cross-sectional imaging with MR enterography, she has had question of distal ileal involvement (2019) and potential mesenteric inflammation (2022). Symptomatically, she is in complete remission on weekly Humira. We talked about her upcoming switch to Medicare, which has been understandably anxiety provoking for her. She has been planning very carefully because she would like to continue Humira since it is worked so well for her. She understands that she can get a vacation override in February to give her extra doses. Will let our team know that she is put in paperwork for [employer] assist and is anticipating an answer in mid February. Looking into Humira biosimilars did not work out. Cost for her would be about the same. Talked about the possibility of using Remicade (or equivalent biosimilar) as a potential backup, ifHumira does not work out for coverage. Discussed obtaining an MR enterography late next brain with her early next summer when she is back from [place] to follow-up the question of mesenteritis on her last study. Depending on what happens with her medications due to changes in coverage and depending on the results of the MR enterography,we will determine timing of next colonoscopy. Should be no later than the end of 2025, which will be 3 years from her last. We discussed the following recommendations that were copied to the After Visit Summary: # Continue Humira # Next routine labs upon return from [place] in June # Will plan for MRE in late spring or early summer 2024. To be ordered at next visit. # Pls let us know when [employer] is back in touch re Humira coverage # Next colonoscopy 2024 or 2025, depending on MRE results. # Follow-up via tele with me or Megan Donnelly APRN in July The patient was located in [place] at the time of their visit. Omar Christopher MD Clerk To Justicerehabilitation case coordinator Co-Director, [facility] Section of [place] [address] documented in this encounter Plan of Treatment Upcoming Encounters Date Type Department Care Team (Late st Contact Info) Description 07/18/2024 1:00 PM EDT TH Visit (TeleHealth) [place] [address] Malinda Christopher MD [facility] DR GASTROENTEROLOGY [place], [place] [id number] Scheduled Orders Name Type Priority Associated Diagnoses Orde r Schedule CBC (with Diff) Lab Routine Colonic Crohn's with mid small bowel segment Encounter for monitoring of adalimumab therapy Every 12 Weeks for 5 Occurrences starting 02/02/2024 until 01/31/2025 CRP, acute inflammation Lab Routine Colonic Crohn's with mid small bowel segment Encounter for monitoring of adalimumab therapy Every 12 Weeks for 5 Occurrences starting 02/02/2024 until 01/31/2025 Hepatic Function Panel Lab Routine Colonic Crohn's with mid small bowel segment Encounter for monitoring of adalimumab therapy Every 12 Weeks for 5 Occurrences starting 02/02/2024 until 01/31/2025 QuantiFERON-TB Gold Lab Routine Colonic Crohn's with mid small bowel segment Encounter for monitoring of adalimumab therapy Expected: 02/02/2024 (Approximate), Expires: 08/03/2024 documented as of this encounter Goals Goal Patient Goal Type Associated Problems Recent Progress Patient-Stated? Author Home Medication Compliance and Understanding Patient Facing Action Plan Lakeisha Matos, [facility] Note: Achieve and maintain control of Crohn's symptoms as assessed by specialist every 3 to 6 months or more documented as of this encounter Visit Diagnoses Diagnosis Colonic Crohn's with mid small bowel segment Encounter for monitoring of adalimumab therapy documented in this encounter Care Teams Quality Assurance Relationship Specialty Start Date End Date Karey Robert APRN [address] [place] [address] PCP - General Geriatric Medicine 12/29/22 documented as of this encounter
--- OUTSIDE RECORDS SUMMARY | 2024-04-14 02:10 | XMS_ITS | Encounter Summary ---
[place] [address] Care Team Providers Care Explosives Worker Name Role Phone Karey Robert APRN Primary Care Provider [phone] Encounter Details Date Type Department Care Team (Latest Contact Info) Description 02/23/2024 Specialty [place] [address] Valery Arthur CPHT Started Refill Coordination - 28 day recurrence (adalimumab) [...] Progress Notes * Valery Arthur CPHT - 02/23/2024 11:15 AM EST Specialty Pharmacy Consultation; Valery Arthur CPHT Comprehensive Medication Management (CMM): Specialty Intervention Ms. Janice Mahoney is a 63 y.o. (1960) female Contact made: by Telephone. Specialty medication intervention for Humira. Spoke with Patient regarding vacation override for her Mar-June 2024 fills. The insurance was unable to give an override due to already having given onein May 2023. Per her plan, only 1 override is eligible per 365 day rolling period. Janice informed me she is working with [facility] to potentially get her meds through MAP. I gave her some alternativeoptions in case her MAP is not approved. She will be uploading her new insurance card and I will work on her Medicare PA the first week of March and see if we can get them to give her a vacation override. She was understanding of the plan and did not have any further questions or concerns at thistime. Patient understands no changes to current drug regimen were made. Valery Arthur CPHT 02/23/24 11:15 AM documented in this encounter Plan of Treatment Upcoming Encounters Date Type Department Care Team (Late st Contact Info) Description 07/18/2024 1:00 PM EDT TH Visit (TeleHealth) [place] [address] Malinda Christopher MD [facility] [place] [address] documented as of this encounter Goals Goal Patient Goal Type Associated Problems Recent Progress Patient-Stated? Author Home Medication Compliance and Understanding Patient Facing Action Plan Lakeisha Matos, [facility] Note: Achieve and maintain control of Crohn's symptoms as assessed by specialist every 3 to 6 months or more documented as of this encounter Visit Diagnoses Not on filedocumented in this encounter Care Teams Explosives Worker Relationship Specialty Start Date End Date Karey Robert APRN [facility] [place] [address] [place] [address] PCP - General Geriatric Medicine 12/29/22 documented as of this encounter
--- OUTSIDE RECORDS SUMMARY | 2024-04-14 02:10 | XMS_ITS | Encounter Summary ---
Author Organization [facility] [place] [address] Care Team Providers Care Iv Technician Name Role Phone Karey Robert APRN Primary Care Provider [phone] Encounter Details Date Type Department Care Team (Late st Contact Info) Description 02/22/2024 Refill [place] [phone] Malinda Christopher MD [facility] [place] [address] Social History Tobacco Use Types Packs/Day Years [...] PM EDT TH Visit (TeleHealth) [place] [address] Malinda Christopher MD [facility] [place] [address] documented as of this encounter Goals Goal Patient Goal Type Associated Problems Recent Progress Patient-Stated? Author [facility] Medication Compliance and Understanding Patient Facing Action Plan Lakeisha Matos, [facility] Note: Achieve and maintain control of Crohn's symptoms as assessed by specialist every 3 to 6 months or more documented as of this encounter Visit Diagnoses Not on filedocumented in this encounter Care Teams Iv Technician Relationship Specialty Start Date End Date Karey Robert APRN [address] [place] [address] PCP - General Geriatric Medicine 12/29/22 documented as of this encounter
--- OUTSIDE RECORDS SUMMARY | 2024-04-14 02:10 | XMS_ITS | Encounter Summary ---
[place] [address] Care Team Providers Care Delivery And Mail Sorter Name Role Phone Karey Robert APRN Primary Care Provider [phone] Encounter Details Date Type Department Care Team (Latest Contact Info) Description 11/25/2023 Specialty [place]acy [place] [address] Priya Garcia CPHT Refill Coordination - 28 day recurrence (adalimumab) [...] as of this encounter Progress Notes * Kane Devlin CPHT - 11/25/2023 8:49 AM EDT Clinical Management Plan: Refill Specialty Pharmacy Consultation; Kane Devlin CPHT Comprehensive Medication Management (CMM) Ms. Janice [...] Allergies and Drug intolerance: Allergies Allergen Reactions [place] Medication Reconciliation Discrepancies (compared to [facility] med list) No Review Flowsheet 11/30/2023 9:10 AM Assessment What is the name of [...] date will you need this fill by? 12/08/2023 Adherence: Any missed doses? No Patient understands no changes to current drug regimen were made. Kane Devlin CPHT 11/30/23 9:25 AM documented in this encounter Plan of Treatment Upcoming Encounters Date Type Department Care Team (Late st Contact Info) Description 07/18/2024 1:00 PM EDT TH Visit (TeleHealth) [place] [address] Malinda Christopher MD [facility] [place] [address] documented as of this encounter Goals Goal Patient Goal Type Associated Problems Recent Progress Patient-Stated? Author [facility] Medication Compliance and Understanding Patient Facing Action Plan Lakeisha Matos, [facility] Note: Achieve and maintain control of Crohn's symptoms as assessed by specialist every 3 to 6 months or more documented as of this encounter Visit Diagnoses Not on filedocumented in this encounter Care Teams Delivery And Mail Sorter Relationship Specialty Start Date End Date Karey Robert APRN [address] [place] [address] [place] [address] PCP - General Geriatric Medicine 12/29/22 documented as of this encounter
--- OUTSIDE RECORDS SUMMARY | 2024-04-14 02:10 | XMS_ITS | Encounter Summary ---
[place] [address] Care Team Providers Care System Support Technician Name Role Phone Karey Robert APRN Primary Care Provider [phone] Encounter Details Date Type Department Care Team (Latest Contact Info) Description 10/08/2023 Specialty [place] [address] [address]osselin Robison [facility] Refill Coordination - 28 day recurrence [...] as of this encounter Progress Notes * Josselin Robison RPH - 10/08/2023 1:53 PM EDT Clinical Management Plan: Refill Specialty Pharmacy Consultation; Josselin Robison [facility] Comprehensive Medication Management (CMM) Ms. Janice Mahoney [...] Allergies and Drug intolerance: Allergies Allergen Reactions [place] Medication Reconciliation Discrepancies (compared to [facility] med list) No Review Flowsheet 10/08/2023 1:53 PM Assessment What is the name of the specialty medication you are refilling? Humira Are you taking any new medications? No Any new medical conditions? No Any new allergies? No Any new side effects that are bothersome? No Any missed doses since your last fill? 0 How many doses do you have remaining on hand? 0 Would you like a pharmacist to reach out to you to answer any questions? No What date will you need this fill by? 10/15/2023 Adherence: Any missed doses? No Patient understands no changes to current drug regimen were made. Josselin Robison RPH 10/08/23 1:54 PM documented in this encounter Plan of Treatment Upcoming Encounters Date Type Department Care Team (Late st Contact Info) Description 07/18/2024 1:00 PM EDT TH Visit (TeleHealth) [place] [address] Malinda Christopher MD [facility] [place] [address] documented as of this encounter Goals Goal Patient Goal Type Associated Problems Recent Progress Patient-Stated? Author [facility] Medication Compliance and Understanding Patient Facing Action Plan Lakeisha Matos [facility] Note: Achieve and maintain control of Crohn's symptoms as assessed by specialist every 3 to 6 months or more documented as of this encounter Visit Diagnoses Not on filedocumented in this encounter Care Teams System Support Technician Relationship Specialty Start Date End Date Karey Robert APRN [address] [place] [address] PCP - General Geriatric Medicine 12/29/22 documented as of this encounter
--- OUTSIDE RECORDS SUMMARY | 2024-04-14 02:10 | XMS_ITS | Encounter Summary ---
Author Organization [facility] [address] Care Team Providers Care Latex Foam Worker Name Role Phone Karey Robert APRN Primary Care Provider [phone] Encounter Details Date Type Department Care Team (Late st Contact Info) Description 11/20/2023 Refill [place] [phone] Malinda Christopher MD [facility] [place] [address] Social History Tobacco Use Types Packs/Day Years [...] PM EDT TH Visit (TeleHealth) [place] [phone] Malinda Christopher MD [facility] [place] [address] documented as of this encounter Goals Goal Patient Goal Type Associated Problems Recent Progress Patient-Stated? Author [facility] Medication Compliance and Understanding Patient Facing Action Plan Lakeisha Matos, [facility] Note: Achieve and maintain control of Crohn's symptoms as assessed by specialist every 3 to 6 months or more documented as of this encounter Visit Diagnoses Not on filedocumented in this encounter Care Teams Latex Foam Worker Relationship Specialty Start Date End Date Karey Robert APRN [address] [place] [address] PCP - General Geriatric Medicine 12/29/22 documented as of this encounter
--- OUTSIDE RECORDS SUMMARY | 2024-04-14 02:10 | XMS_ITS | Encounter Summary ---
[place] [address] Care Team Providers Care Departmental Shipping Clerk Name Role Phone Karey Robert APRN Primary Care Provider [phone] Encounter Details Date Type Department Care Team (Latest Contact Info) Description 08/10/2023 Specialty Pharmacy [place] [address] Lucio Jones [facility] Refill Coordination - 28 day recurrence (adalimumab) [...] as of this encounter Progress Notes * Lucio Jones RPH - 08/10/2023 1:15 PM EDT Clinical Management Plan: Refill Specialty Pharmacy Consultation; Lucio Jones [facility] Comprehensive Medication Management (CMM) Ms. Janice Mahoney is a 63 y.o. (1960) female who was contacted in regard to a specialty medication refill reminder. The patient requested a refill of Humira. A review of the medication therapy was [...] Allergies and Drug intolerance: Allergies Allergen Reactions [place] Medication Reconciliation Discrepancies (compared to [facility] med list) No Review Flowsheet 08/10/2023 1:15 PM Assessment What is the name of the specialty medication you are refilling? Humira (2 Pen) 40mg/0.4ml Pnkt Are you taking any new medications? No Any new medical conditions? No Any new allergies? No Any missed doses since your last fill? 0 Any new side effects that are bothersome? No What date will you need this fill by? 08/21/2023 Adherence: Any missed doses? No Patient understands no changes to current drug regimen were made. Lucio Jones RPH 08/10/23 1:16 PM documented in this encounter Plan of Treatment Upcoming Encounters Date Type Department Care Team (Late st Contact Info) Description 07/18/2024 1:00 PM EDT TH Visit (TeleHealth) [place] [address] Malinda Christopher MD [facility] [place] [address] documented as of this encounter Goals Goal Patient Goal Type Associated Problems Recent Progress Patient-Stated? Author [facility] Medication Compliance and Understanding Patient Facing Action Plan No Lakeisha Kent [facility] Note: Achieve and maintain control of Crohn's symptoms as assessed by specialist every 3 to 6 months or more documented as of this encounter Visit Diagnoses Not on filedocumented in this encounter Care Teams Departmental Shipping Clerk Relationship Specialty Start Date End Date Karey Robert APRN [address] [place] [address] PCP - General Geriatric Medicine 12/29/22 documented as of this encounter
--- OUTSIDE RECORDS SUMMARY | 2024-04-14 02:10 | XMS_ITS | Encounter Summary ---
[place] [address] Care Team Providers Care Biological Scientist Name Role Phone Karey Robert APRN Primary Care Provider [phone] Encounter Details Date Type Department Care Team (Latest Contact Info) Description 09/08/2023 Specialty [place] [address] Frannie Araya RPH Refill Coordination - 28 day recurrence [...] as of this encounter Progress Notes * Frannie Araya RPH - 09/08/2023 9:20 AM EDT Clinical Management Plan: Refill Specialty Pharmacy Consultation; Frannie Araya RPH Comprehensive Medication Management (CMM) Ms. Janice [...] Allergies and Drug intolerance: Allergies Allergen Reactions [place] Medication Reconciliation Discrepancies (compared to [facility] med list) No Review Flowsheet 09/08/2023 9:21 AM Assessment What is the name of [...] date will you need this fill by? 09/18/2023 Adherence: Any missed doses? No Patient understands no changes to current drug regimen were made. Frannie Araya RPH 09/08/23 9:21 AM documented in this encounter Plan of Treatment Upcoming Encounters Date Type Department Care Team (Late st Contact Info) Description 07/18/2024 1:00 PM EDT TH Visit (TeleHealth) [place] [address] Malinda Christopher MD [facility] [place] [address] documented as of this encounter Goals Goal Patient Goal Type Associated Problems Recent Progress Patient-Stated? Author [facility] Medication Compliance and Understanding Patient Facing Action Plan No Lakeisha Kent, [facility] Note: Achieve and maintain control of Crohn's symptoms as assessed by specialist every 3 to 6 months or more documented as of this encounter Visit Diagnoses Not on filedocumented in this encounter Care Teams Biological Scientist Relationship Specialty Start Date End Date Karey Robert APRN [address] [place] [address] PCP - General Geriatric Medicine 12/29/22 documented as of this encounter
--- OUTSIDE RECORDS SUMMARY | 2024-04-14 02:10 | XMS_ITS | Encounter Summary ---
[place] [address] Care Team Providers Care Tv Production Assistant Name Role Phone Karey Robert APRN Primary Care Provider [phone] Encounter Details Date Type Department Care Team (Latest Contact Info) Description 12/21/2023 11:40 AM EDT Laboratory Appointment Lab [address] [place] [address] Crohn's disease of small and large intestines [...] PM EDT TH Visit (TeleHealth) [place] [address] Malinda Christopher MD [facility] [place] [address] documented as of this encounter Goals Goal Patient Goal Type Associated Problems Recent Progress Patient-Stated? Author [facility] Medication Compliance and Understanding Patient Facing Action Plan Lakeisha Matos, [facility] Note: Achieve and maintain control of Crohn's symptoms as assessed by specialist every 3 to 6 months or more documented as of this encounter Procedures Procedure Name Priority Date/Time Associated Diagnosis Comments CRP, ACUTE INFLAMMATION Routine 12/21/2023 10:44 AM EDT Crohn's disease of small and large intestines with complication Encounter for monitoring of adalimumab therapy CBC (WITH DIFF) Routine 12/21/2023 10:44 AM EDT Crohn's disease of small and large intestines with complication Encounter for monitoring of adalimumab therapy HEPATIC FUNCTION PANEL Routine 12/21/2023 10:44 AM EDT Crohn's disease of small and large intestines with complication Encounter for monitoring of adalimumab therapy documented in this encounter Results * Hepatic Function Panel (12/21/2023 10:44 AM EDT) Albumin 4.6 3.2 - 5.2 g/dL 12/21/2023 11:33 AM EDT [facility] Aspartate Aminotransferase 20 <=30 unit/L 12/21/2023 11:33 AM EDT [facility] Alanine Aminotransferase 23 0 - 30 unit/L 12/21/2023 11:33 AM T [facility] Alkaline Phosphatase 83 35 - 105 unit/L 12/21/2023 11:33 AM [facility] Bilirubin, Total 0.3 <=1.3 mg/dL 12/21/2023 11:33 AM EDT [facility] Bilirubin, Direct <0.2 0.0 - 0.3 mg/dL 12/21/2023 11:33 AM [facility] Protein, Total 7.6 6.1 - 8.0 g/dL 12/21/2023 11:33 AM [facility] Blood VENOUS BLOOD SPECIMEN / Unknown Venipuncture / Unknown 12/21/2023 10:44 AM EDT 12/21/2023 10:45 AM EDT L Tai Christopher MD CHEMISTRY ORDERABLES [facility] [place] [address] * CRP, acute inflammation (12/21/2023 10:44 AM EDT) [facility] C-Reactive Protein <3.0 <=4.9 mg/L 12/21/2023 11:33 AM EDT [facility] Blood VENOUS BLOOD SPECIMEN / Unknown Venipuncture / Unknown 12/21/2023 10:44 AM EDT 12/21/2023 10:45 AM EDT L Tai Christopher MD CHEMISTRY ORDERABLES Performing Organization Address City/[facility]/ZIP Co de Phone Number [facility] [place] [address] * CBC (with Diff) (12/21/2023 10:44 AM EDT) [facility] White Blood Cell 6.55 4.00 - 9.50 x10(3)/mcL 12/21/2023 11:00 AM EDT [facility] Red Blood Cell 4.48 4.00 - 5.21 x10(6)/mcL 12/21/2023 11:00 AM EDT [facility] Hemoglobin 13.4 11.7 - 15.5 g/dL 12/21/2023 11:00 AM EDT [facility] Hematocrit 41.6 35.7 - 45.8 % 12/21/2023 11:00 AM EDT [facility] Mean Cell Volume 92.9 82.6 - 94.4 fL 12/21/2023 11:00 AM EDT [facility] Mean Cell Hemoglobin 29.9 27.1 - 32.0 pg 12/21/2023 11:00 AM EDT [facility] Mean Cell Hemoglobin Concentration 32.2 31.7 - 35.0 g/dL 12/21/2023 11:00 AM EDT [facility] Platelet 291 145 - 357 x10(3)/mcL 12/21/2023 11:00 AM [facility] Mean Platelet Volume 8.9 7.6 - 12.9 fL 12/21/2023 11:00 AM [facility] RDW Standard Deviation 42.7 37.0 - 46.0 fL 12/21/2023 11:00 AM [facility] RDW coefficient of variation 12.4 11.5 - 14.1 % 12/21/2023 11:00 AM [facility] NRBC% auto 0.0 % 12/21/2023 11:00 AM [facility] NRBC Absolute <0.01 <0.01 x10(3)/mcL 12/21/2023 11:00 AM [facility] Neutrophil % 41.8 % 12/21/2023 11:00 AM [facility] Neutrophil Absolute (ANC) - Automated 2.74 1.70 - 6.10 x10(3)/mcL 12/21/2023 11:00 AM [facility] Lymph % 45.5 % 12/21/2023 11:00 AM [facility] Lymph Absolute 2.98 0.90 - 3.20 x10(3)/mcL 12/21/2023 11:00 AM [facility] Monocyte % 9.2 % 12/21/2023 11:00 AM [facility] Monocyte Absolute 0.60 0.30 - 0.90 x10(3)/mcL 12/21/2023 11:00 AM [facility] Eos % 2.7 % 12/21/2023 11:00 AM [facility] Eos Absolute 0.18 0.00 - 0.40 x10(3)/mcL 12/21/2023 11:00 AM [facility] Basophil % 0.6 % 12/21/2023 11:00 AM [facility] Baso Absolute 0.04 0.00 - 0.10 x10(3)/mcL 12/21/2023 11:00 AM EDT [facility] Immature Gran % 0.2 % 11:00 AM EDT [facility] Immature Gran Absolute <0.04 0.00 - 0.04 x10(3)/mcL 12/21/2023 11:00 AM EDT [facility] Blood VENOUS BLOOD SPECIMEN / Unknown Venipuncture / Unknown 12/21/2023 10:44 AM EDT 12/21/2023 10:45 AM EDT L Tai Christopher MD HEMATOLOGY ORDERABLE S [facility] [place] [address] documented in this encounter Visit Diagnoses Diagnosis Crohn's disease of small and large intestines with complication Encounter for monitoring of adalimumab therapy documented in this encounter Care Teams Tv Production Assistant Relationship Specialty Start Date End Date Karey [place] [address] [place] [address] PCP - General Geriatric Medicine 12/29/22 documented as of this encounter
--- OUTSIDE RECORDS SUMMARY | 2024-04-14 02:10 | XMS_ITS | Clinical Summary ---
Author Organization [facility] [place] [address] Care Team Providers Care Log Sawyer Name Role Phone Karey Robert ROMULO Primary Care Provider [phone] Allergies Active Allergy Reactions Criticality Noted Date Comments [place] 10/14/2017 Medications Medication Sig Dispensed Refills Start Date End Date Status omeprazole (PriLOSEC) 20 mg Capsule, Delayed Release(E.C.) Take 1 capsule by mouth daily. 90 capsule 3 02/22/2021 Active magnesium oxide 400 mg magnesium Capsule Take 450 mg by mouth daily. 06/05/2020 Active cyanocobalamin, Vitamin B-12, (Vitamin B-12) 250 mcg tablet Take 250 mcg by mouth daily. Active adalimumab (Humira,CF, Pen) 40 mg/0.4 mL Pen Injector Kit Inject the contents of one pen (40 mg) subcutaneously once every 7 days. 6 kit 1 02/22/2024 Active Active Problems Problem Noted Date Diagnosed Date Colonic Crohn's with mid small bowel segment Overview (02/01/2024): Location: Colonic and mid small bowel, Behavior: Inflammatory perianal disease in form of skin tags Symptoms: worsening hemorrhoids April 2017 undergoes excisional hemorrhoidectomy that did not heal 10/02/17: Colonoscopy ([facility]) Large perianal inflamed skin tags found on [...] with likely Crohn's disease which appears less severe than the colonic segment MRE 07/2019 - Persistent circumferential wall thickening of 10 cm descending/sigmoid colon with increased transmural and adjacent mesenteric inflammation. New circumferential wall thickening of a 5 cm segment of distal ileum with transmural enhancement, however, no mesenteric inflammation. [place] 04/2020 - No active Crohn's apart from mild erythema in sigmoid that was inactive on bx. Mild narrowing of the sigmoid colon related to diverticular dx, less likely Crohn's. 3 mm adenomas descending colon. Nl TI. MRE 04/2022 - no enteritis - Incidental mesenteric panniculitis, with slightly increased degree of inflammation and enhancement since 2018. [place] 12/04/22 - Severe diverticulosis from descending to sigmoid. No active Crohn's disease. Path with inactive colitis. Treatments: Started Humira end of 10/2017, 12/17/17 [place] Humira level 12.8, no antibodies on every two week Humira . Repeat [place] Spring 2019 with Ab and low drug level. Repeat Prometheus with level 20 and no Ab. Health Maintenance: 2023 - T-spot neg. CXR 07/2023 unremarkable 05/28/2021 - pos quant gold. F/U CXR and PPD in Dr Phillips's office neg 10/19/17 TB - Quant gold neg 10/19/17 Hep B negative 01/2018 Shingrix first dose. Second Shingrix July 2018. 01/2018 Pneumococcal (presumed Pneumovax) PCV 2018 Moderna x3 plus booster - last dose 04/2021 Anal pain 09/15/2017 Clotting disorder 09/15/2017 Overview (09/15/2017): Protein C deficiency Diverticulitis of large inte paulina without perforation or abscess without bleeding 09/15/2017 Gallstones 09/15/2017 Encounters Date Type Department Care Team Description 03/15/2024 [place]ty [place] [address] Valery Arthur, [employer] Prior Authorization (adalimumab) for Gastroenterology 03/14/2024 [place]ty [place] [address] Ness Andujar, [employer] MAP - Renewal (adalimumab) for Gastroenterology 02/23/2024 Specialty Pharmacy Pharmacy at [place] [phone] Valery Arthur CPHT Started Refill Coordination - 28 day recurrence (adalimumab) for Gastroenterology 02/22/2024 Specialty Pharmacy Pharmacy at [place] [phone] Jennie Barkley, [facility] Medication Discontinuation or Transfer (adalimumab) for Gastroenterology, Refill Coordination - 28 day recurrence (adalimumab) for Gastroenterology 02/22/2024 Refill Gastroenterology at [place] [phone] Malinda Christopher MD 02/02/2024 8:30 AM EST TH Visit (TeleHealth) Gastroenterology at [place] [address] Malinda Christopher MD Colonic Crohn's with mid small bowel segment; Encounter for monitoring of adalimumab therapy 01/27/2024 Specialty Pharmacy Pharmacy at [place] [phone] Frannie Araya, [facility] Refill Coordination - 28 day recurrence (adalimumab) for Gastroenterology 01/18/2024 Specialty Pharmacy Pharmacy at [place] [phone] Mel Davis, [employer] from Last 3 Months Immunizations Name Administration Dates Next Due Covid-19 Monovalent (Moderna Spikevax) 12yrs+ ([id number]) 04/13/2021,11/09/2020,06/24/2020,05/27 Influenza Trivalent w/Preservative 11/16/2018, Pneumococcal 13-Valent Conju gate (Prevnar 13) 01/24/2019 Pneumococcal 23-Valent Polys accharide (Pneumovax 23) 01/26/2018 Tdap (Adacel, Boostrix) 12/12/2011 Zoster Recombinant (ShingRix) 06/28/2018, 018 Family History Medical History Relation Comments Asthma Brother Cancer Maternal Grandmother colon ca, u terine ca Cancer Paternal Grandmother colonc ca Asthma Sister Relation Status Comments Brother Maternal Grandmother Paternal Grandmother Sister Social History Tobacco Use Types Packs/Day Years Used Date Smoking Tobacco: Former Cigarettes 0.5 15 1 980 - 1994 Smokeless Tobacco: Never Tobacco Cessation:Counseling Given: Not Answered Comments:denies vaping Alcohol Use Standard Drinks/Week Comments Yes 5 (1 standard drink = 0.6 oz pur e alcohol) every other day or so Sex and Gender Information Value Date Recorded Sex Assigned at Female 12/20/2022 7:55 AM EDT Gender Identity Not on file Sexual Orientation Not on file Last Filed Vital Signs Vital Sign Reading Time Taken Comments Blood Pressure 117/72 12/04/2022 4:40 PM EDT Pulse 80 12/04/2022 4:15 PM EDT Temperature 36.4 ??C (97.5 ??F) 12/04/2022 2:39 PM ED T Respiratory Rate 19 12/04/2022 4:50 PM EDT Oxygen Saturation 97% 12/04/2022 4:40 PM EDT Inhaled Oxygen Concentration - - Weight 61.2 kg (135 lb) 12/04/2022 2:39 PM EDT Height 152.4 cm (5') 12/04/2022 2:39 PM EDT Body Mass Index 26.37 12/04/2022 2:39 PM EDT Plan of Treatment Upcoming Encounters Date Type Department Care Team (Late st Contact Info) Description 07/18/2024 1:00 PM EDT TH Visit (TeleHealth) [place] [address] Malinda Christopher MD [facility] [place] [address] Health Maintenance Due Date Last Done Comments CT Colonography 1959 FIT DNA 1959 FIT 1959 Sigmoidoscopy 1960 HIV screen 1977 Hepatitis C Screening 1977 HPV test 1989 PAP Smear 1989 Breast Cancer Share Decision Needed 1999 Breast Cancer screening 1999 Advance Directive 2014 Tetanus/Diphtheria/Pertussis Vaccines (2 - Td or Tdap) 12/11/2021 12/12/2011 Covid-19 Vaccine (5 - 2023-2 5 season) 2023 04/13/2021, 11/09/2020, 06/24/2020, Additional history exists Influenza (Flu) vaccine (1 o f 1 - Influenza standard series) 11/08/2023 11/16/2018, 01/19/2018 Pneumoccocal Vaccine: 50+ (3 of 3 - PCV20 or PCV21) 01/25/2024 01/24/2019, 01/26/2018 Bone Density Scan 2024 Diabetes Screening (HgbA1C o r Glucose) 04/22/2026 04/22/2023, 05/16/2019, 11/05/2018, Additional history exists Colonoscopy 12/04/2032 12/04/2022, 11/08, 04/26/2020, Additional history exists Colorectal Cancer Screening 12/04/2032 Sigmoidoscopy (10 year) with FIT yearly 12/04/2032 12/04/2022, 12/04/2022, 04/26/2020, Additional history exists Zoster vaccine Completed 06/28/2018, 01/26/2018 Goals Goal Patient Goal Type Associated Problems Recent Progress Patient-Stated? Author DH Home Medication Compliance and Understanding Patient Facing Action Plan Lakeisha Matos, [facility] Note: Achieve and maintain control of Crohn's symptoms as assessed by specialist every 3 to 6 months or more Procedures Procedure Name Priority Date/Time Associated Diagnosis Comments BASIC METABOLIC PANEL Routine 04/22/2023 12:19 PM EST Colonic Crohn's with mid small bowel segment COLONOSCOPY Routine 12/04/2022 3:20 PM EDT from Last 3 Months or Most Recently Relevant to Health Maintenance Results * (ABNORMAL) Basic Metabolic Panel (non-fasting) (04/22/2023 12:19 PM EST) Glucose 98 65 - 199 mg/dL [facility] Comment:Diabetes: >=200 mg/d L plus symptoms Blood Urea Nitrogen 15 8 - 18 mg/dL [facility] Creatinine 0.66(L) 0.70 - 1.20 mg/dL [facility] Sodium 142 135 - 145 mmol/L [facility] Potassium 4.3 3.5 - 5.0 mmol/L [facility] Comment: Please note: ??Patients with WBC >100,000 may have falsely elevated Potassium levels. ??For accurate Potassium quantification in these patients send serum separator tube (gold top) for subsequent determinations. ??Contact the Clinical Chemistry Laboratory if there are any questions. Chloride 106 98 - 107 mmol/L [facility] Carbon Dioxide 27 22 - 31 mmol/L [facility] Anion Gap 9 5 - 15 mmol/L [facility] Calcium 9.1 8.5 - 10.5 mg/dL [facility] Est Glomerular Filtration Rate 98 >=60 mL/min/1. 73 m?? [facility] Comment: This patient's estimated GFR was calculated using the 2020 CKD-EPI equation. The estimated GFR can vary from the measured GFR by up to 30% in the absence of rapidly changing kidney function. Assessment of the estimated GFR is not appropriate when creatinine concentrations are rapidly changing. For clinical situations in which a more precise estimate of GFR is necessary, consider alternative methods of GFR estimation such as a 24-hour urine creatinine clearance. Assignment of CKD stage 1-5 for patients with an eGFR near the transition point between stages may be based on clinical assessment of muscle mass and symptoms in addition to eGFR. Blood 04/22/2023 12:1 9 PM EST 04/22/2023 12:25 PM EST Narrative Resulting Agency Comment Spec In Lab L Tai Christopher MD CHEMISTRY ORDERABLES [facility] [place] [address] * COLONOSCOPY (12/04/2022 3:20 PM EDT) COLONOSCOPY [facility] Endoscopy ___ Procedure Date: 12/04/2022 3:20 PM ? Patient Name: Janice Mahoney ? Date of : 1960 ? Age: 62 ? Order #: [id number] ? Instrument Name: [id number] ? ___ Procedure: ? Colonoscopy Indications: ? High risk colon cancer ? surveillance: Crohn's disease Patient Profile: ? This is a 62 year old female. This ? patient has ileocolonic Crohn's ? disease with perianal involvement, ? is taking adalimumab and is ? asymptomatic. Providers: ? Omar Christopher MD, Jitendra Marquez ? Michelle, RN, Etta Burnham Referring MD: ?Valarie Phillips MD Medicines: ? Midazolam 5.5 mg IV, Fentanyl 175 ? micrograms IV Complications: ? No immediate complications. ___ Procedure: ? Pre-Anesthesia Assessment: ? - Prior to the procedure, a History ? and Physical was performed, and ? patient medications and allergies ? were reviewed. The patient is ? competent. The risks and benefits ? of the procedure and the sedation ? options and risks were discussed ? with the patient. All questions ? were answered and informed consent ? was obtained. Patient ? identification and proposed ? procedure were verified by the ? physician in the pre-procedure area ? in the endoscopy suite. Mental ? Status Examination: alert and ? oriented. Airway Examination: ? normal oropharyngeal airway and ? neck mobility. Respiratory ? Examination: clear to auscultation. ? CV Examination: normal. ASA Grade ? Assessment: II - A patient with ? mild systemic disease. After ? reviewing the risks and benefits, ? the patient was deemed in ? satisfactory condition to undergo ? the procedure. The anesthesia plan ? was to use moderate sedation / ? analgesia (conscious sedation). ? Immediately prior to administration ? of medications, the patient was ? re-assessed for adequacy to receive ? sedatives. The heart rate, ? respiratory rate, oxygen ? saturations, blood pressure, ? adequacy of pulmonary ventilation, ? and response to care were monitored ? throughout the procedure. The ? physical status of the patient was ? re-assessed after the procedure. ? The procedure, indications, ? benefits, risks and alternatives ? were explained to the patient. ? Specifically discussed were ? potential complications including, ? but not limited to, bleeding, ? perforation, infection, missing a ? cancer, and adverse medication ? reactions. The patient was placed ? in the left lateral decubitus ? position, and a digital rectal exam ? was performed. The Colonoscope was ? inserted in the anus and under ? direct visualization, advanced to 8 ? cm into the ileum. Careful ? inspection was made as the ? colonoscope was withdrawn. The ? colonoscopy was performed without ? difficulty. The patient tolerated ? the procedure well. The quality of ? the bowel preparation was evaluated ? using the BBPS ([place] Bowel ? Preparation Scale) with scores of: ? Right Colon = 2 (minor amount of ? residual staining, small fragments ? of stool and/or opaque liquid, but ? mucosa seen well), Transverse Colon ? = 3 (entire mucosa seen well with ? no residual staining, small ? fragments of stool or opaque ? liquid) and Left Colon = 2 (minor ? amount of residual staining, small ? fragments of stool and/or opaque ? liquid, but mucosa seen well). The ? total BBPS score equals 7. The ? quality of the bowel preparation ? was good. Scope withdrawal time was ? 16 minutes. ? Findings: ? The terminal ileum appeared normal. ? Careful light chromoendoscopy examination using BLI ? and then high definition white light done throughout ? the colon. Slight granularity in the cecum. Targeted ? biopsies taken with a cold forceps for histology. ? Multiple medium-mouthed diverticula were found from ? descending colon to sigmoid colon. The majority were ? in the distal sigmoid colon, and there was severe ? narrowing from ~18-23 cm where there was also mild ? patchy erythema. Patient with significant discomfort ? when navigating with a hybrid colonoscope. This was ? similar to last exam. Targeted biopsies taken with a ? cold forceps for histology. ? The perianal exam findings include a mild focal anal ? canal stenosis. ? Moderate Sedation: ? I was present during the intraservice time as ? documented by the sedation RN. Impression: ?- Crohn's in remission with mild ? anal stenosis. Targeted biopsies as ? above. ? - Severe diverticulosis from ? descending to sigmoid colon. There ? was narrowing of the colon in ? association with a distal sigmoid ? segment. Suspect due primarily to ? diverticular disease and not likely ? related to Crohn's. Biopsied. ? - The examined portion of the ileum ? was normal. Recommendation: ?- Await pathology results. ? - Continue Humira. ? - Follow-up in IBD Clinic. ? Attending Participation: ? I personally performed the entire procedure. ? _ L. Tai Christopher MD 12/04/2022 5:00:43 PM Number of Addenda: 0 Note Initiated On: 12/04/2022 3:20 PM PROVATION 12/04/2022 3:20 PM EDT Valarie Phillips MD GENERAL SURGICAL ORD ERABLES PROVATION from Last 3 Months or Most Recently Relevant to Health Maintenance Care Teams Log Sawyer Relationship Specialty Start Date End Date Karey Robert APRN [address] [place] [address] PCP - General Geriatric Medicine 12/29/22
--- OUTSIDE RECORDS SUMMARY | 2024-04-14 02:10 | XMS_ITS | Encounter Summary ---
[place] [address] Care Team Providers Care Starch Factory Laborer Name Role Phone Karey Robert APRN Primary Care Provider [phone] Encounter Details Date Type Department Care Team (Latest Contact Info) Description 03/14/2024 Specialty [place] [address] Ness Andujar CPHT MAP - Renewal (adalimumab) for Gastroenterology Social History Tobacco Use [...] as of this encounter Progress Notes * Ness Andujar CPHT - 03/14/2024 9:50 AM EST Images from the original note were not included. [facility], MAP Assistance The [facility] Team has assisted Janice Petty Denzel with the data processing specialist's MAP program enrollment for their specialty medication . The patient???s application was approved to receive the medication at no cost through the data processing specialist. 03/14/2024 9:52 AM MAP Approval Writing Tutor Assistance Approval Start Date 03/14/2024 Writing Tutor Assistance Approval End Date 2025 Patient Notified -- Will notify pt via [email or web address] message. Prescriber Office Notified Yes Is this a MAP Bridge program? No Specialty Medication Access Team will be reaching out to the patient to inform them of the approvalby the data processing specialist. The patient will receive the medication directly from the data processing specialist???s dispensing pharmacy. For any questions relating to this approval please reach out directly to your section's specialty pharmacist, or the specialty pharmacy team at [facility]. Ness Andujar CPHT 03/14/24 9:55 AM documented in this encounter Plan of Treatment Upcoming Encounters Date Type Department Care Team (Late st Contact Info) Description 07/18/2024 1:00 PM EDT TH Visit (TeleHealth) [place] [address] Malinda Christopher MD [facility] [place] [address] documented as of this encounter Goals Goal Patient Goal Type Associated Problems Recent Progress Patient-Stated? Author [facility] Medication Compliance and Understanding Patient Facing Action Plan Lakeisha Matos, [facility] Note: Achieve and maintain control of Crohn's symptoms as assessed by specialist every 3 to 6 months or more documented as of this encounter Visit Diagnoses Not on filedocumented in this encounter Care Teams Starch Factory Laborer Relationship Specialty Start Date End Date Karey Robert APRN [address] [facility] [place] [address] PCP - General Geriatric Medicine 12/29/22 documented as of this encounter
--- OUTSIDE RECORDS SUMMARY | 2024-04-14 02:10 | XMS_ITS | Encounter Summary ---
[place] [address] Care Team Providers Care Record Press Operator Name Role Phone Karey Robert APRN Primary Care Provider [phone] Reason for Visit * Reason Comments Prior Authorization Humira Encounter Details Date Type Department Care Team (Late st Contact Info) Description 07/23/2023 Specialty [place] [address] Livan Harmon, [facility] Social History Tobacco Use Types Packs/Day Years [...] as of this encounter Progress Notes * Livan Harmon CPHT - 07/23/2023 9:19 AM EDT [facility], Medication Prior Authorization Submission Patient: Janice Mahoney Patient : 1960 Patient Address: [address] [place] [address] (home) Medication Name: HUMIRA(CF) PEN 40 MG/0.4 ML SUBCUTANEOUS KIT Medication ID: [id number] Subscriber Insurance: [facility] Subscriber Insurance Comment: Phone: [phone] Fax: Physician: Malinda GARNICA Physician Comment: Sent Via: [facility] Andujar: [id number] Ref/Case/PA#: Medication Strength Frequency Requested: Inject the contents of one pen (40 mg) subcutaneously onceevery 7 days. Qty/Day Supply: 07/04 New Start: Renewal Diagnosis & ICD-10 Code: K50.819 Crohn's Disease of small and large intestine with complication Patient Notified: No Submission Notes: None Livan Harmon CPHT 07/23/23 9:22 AM * Mel Cross CPHT - 07/23/2023 9:19 AM EDT [facility], Prior Authorization Approval Medication Name: HUMIRA(CF) PEN 40 MG/0.4 ML SUBCUTANEOUS KIT Medication ID: [id number] Approval Dates: 07/23/2023 to 01/23/2024 Insurance requirements/notes: None Other Notes: - PA approved for Humira PEN 40mg/0.4ml PNKT, qty 07/04. Confirmed with Alice at insurance that qty 4pens per 28 days is approved. Case/Reference #: [id number] Approval notification Received via: [facility] Copay: $0 Copay assistance: Copay Notes: Insurance mandated Pharmacy: [facility] at [facility] Special[facility] Pharmacy: Yes Patient Notified: No Pharmacy staff will be reaching out to the patient to inform them of their medication[facility]. If applicable, a pharmacist will speak with the patient to offer our specialty pharmacy services and to arrange delivery of their medication. Mel Cross CPHT 07/24/23 9:42 AM documented in this encounter Plan of Treatment Upcoming Encounters Date Type Department Care Team (Late st Contact Info) Description 07/18/2024 1:00 PM EDT TH Visit (TeleHealth) [place] [address] Malinda Garnica MD [facility] [place] [address] documented as of this encounter Goals Goal [...] on filedocumented in this encounter Care Teams Record Press Operator Relationship Specialty Start Date End Date Karey Robert APRN [address] [place] [address] PCP - General Geriatric Medicine 12/29/22 documented as of this encounter
--- OUTSIDE RECORDS SUMMARY | 2024-04-14 02:11 | XMS_ITS | Encounter Summary ---
Author Organization [facility] [place] [address] Care Team Providers Care Leadership Coach Name Role Phone Valarie Phillips MD Primary Care Provider [phone] Reason for Visit * Reason Comments Specialty Refill Management HUMIRA PEN 4 0MG/0.4ML PNKT Encounter Details Date Type Department Care Team (Late st Contact Info) Description 06/06/2021 Specialty Pharmacy Pharmacy at [facility] [place] [place] [phone] Chelsey Medel Social History Tobacco Use Types Packs/Day Years Used Date Smoking Tobacco: Former Cigarettes 0.5 15 1 980 - 1994 Smokeless Tobacco: Never Comments:denies vaping Alcohol Use Standard Drinks/Week Comments Yes 5 (1 standard drink = 0.6 oz pur e alcohol) Sex and Gender Information Value Date Recorded Sex Assigned at Female 12/20/2022 7:55 AM EDT Gender Identity Not on file Sexual Orientation Not on file documented as of this encounter Progress Notes * Chelsey Medel - 06/06/2021 4:22 PM EDT Clinical Management Plan: Refill Specialty Pharmacy Consultation; Chelsey Medel Comprehensive Medication Management (CMM) Janice Malinda Denzel Ms. Janice Mahoney is a 61 y.o. (1960) female who was contacted in regard to a specialty medication refill reminder. Contact made with patient regarding HUMIRA PEN 40MG/0.4ML PNKT. A review of the medication therapy was performed. The medication was refilled as scheduled, and all medication related questions and concerns were addressed. The specialty pharmacy staff will follow up with the patient 5-7 days prior to next refill. Was a change made to the Care Plan: No Allergies and Drug intolerance: Allergies Allergen Reactions ??? [place] Medication Reconciliation Discrepancies (compared to [facility] med list) No Specialty Pharmacy Refill Questionnaire Refill Questionnaire 06/06/2021 What is the name of the specialty medication you are refilling? - Are you taking any new medications? No Any new medical condition? No Any new allergies? No Any new side effects that are bothersome? No What date will you need this fill by? 06/14/2021 Adherence: Any missed doses? No Patient understands no changes to current drug regimen were made. Chelsey Medel 06/06/21 4:26 PM documented in this encounter Plan of Treatment Upcoming Encounters Date Type Department Care Team (Late st Contact Info) Description 07/18/2024 1:00 PM EDT TH Visit (TeleHealth) [place] [address] Malinda Christopher MD [facility] [place] [address] documented as of this encounter Goals Goal Patient Goal Type Associated Problems Recent Progress Patient-Stated? Author [facility] Medication Compliance and Understanding Patient Facing Action Plan Lakeisha Matos, [facility] Note: Achieve and maintain control of Crohn's symptoms as assessed by specialist every 3 to 6 months or more documented as of this encounter Visit Diagnoses Not on filedocumented in this encounter Care Teams Leadership Coach Relationship Specialty Start Date End Date Valarie Phillips MD [address] [place] [address] PCP - General General Internal Medicine 09/06/17 documented as of this encounter
--- OUTSIDE RECORDS SUMMARY | 2024-04-14 02:11 | XMS_ITS | Encounter Summary ---
Author Organization [facility] [place] [address] Care Team Providers Care Review Nurse Name Role Phone Valarie Phillips MD Primary Care Provider [phone] Encounter Details Date Type Department Care Team (Latest Contact Info) Description 12/04/2022 1:20 PM EDT Laboratory Appointment Lab [address] [place] [phone] Crohn's disease of small and large intestines [...] PM EDT TH Visit (TeleHealth) [place] [phone] Malinda Christopher MD [facility] [place] [address] documented as of this encounter Goals Goal Patient Goal Type Associated Problems Recent Progress Patient-Stated? Author [facility] Medication Compliance and Understanding Patient Facing Action Plan No Lakeisha Kent, [facility] Note: Achieve and maintain control of Crohn's symptoms as assessed by specialist every 3 to 6 months or more documented as of this encounter Procedures Procedure Name Priority Date/Time Associated Diagnosis Comments CRP, ACUTE INFLAMMATION Routine 12/04/2022 1:29 PM EDT Crohn's disease of small and large intestines with complication Encounter for monitoring of adalimumab therapy HEMOGRAM Routine 12/04/2022 1:29 PM EDT Crohn's disease of small and large intestines with complication Encounter for monitoring of adalimumab therapy DIFFERENTIAL, AUTOMATED Routine 12/04/2022 1:29 PM EDT Crohn's disease of small and large intestines with complication Encounter for monitoring of adalimumab therapy CBC (WITH DIFF) Routine 12/04/2022 1:29 PM EDT Crohn's disease of small and large intestines with complication Encounter for monitoring of adalimumab therapy HEPATIC FUNCTION PANEL Routine 12/04/2022 1:29 PM EDT Crohn's disease of small and large intestines with complication Encounter for monitoring of adalimumab therapy documented in this encounter Results * Differential, Automated (12/04/2022 1:29 PM EDT) Neutrophil % 43.0 % [facility] Neutrophil Absolute 2.72 1.70 - 6.10 x10(3)/[facility] Lymph % 44.0 % [facility] Lymphocytes Abs 2.8 0.9 - 3.2 x10(3)/[facility] Monocyte % 8.9 % [facility] Monocyte Abs 0.6 0.3 - 0.9 x10(3)/[facility] Eos % 3.0 % [facility] Eosinophils Abs 0.2 0.0 - 0.4 x10(3)/[facility] Basophil % 0.9 % [facility] Baso Absolute 0.1 0.0 - 0.1 x10(3)/[facility] Immature Gran % 0.20 % [facility] Comment: Immature granulocytes(IG's)percentage and absolute count will include metamyelocytes, myelocytes, and promyelocytes. Blood smears from CBCs yielding IG's will be scanned manually for concordance. If this scan disagrees with the automated IG or if promyelocytes are noted, a manual differential will be performed. Immature Gran Absolute 0.01 0.00 - 0.04 x10(3)/[facility] Blood 12/04/2022 1:29 PM EDT 12/04/2022 1:55 PM EDT Narrative Resulting Agency Comment Spec In Lab L Tai Christopher MD HEMATOLOGY ORDERABLE S Performing Organization Address [facility] Co de Phone Number [facility] [place] [address] * Hemogram (12/04/2022 1:29 PM EDT) White Blood Cell 6.3 4.0 - 9.5 x10(3)/[facility] Red Blood Cell 4.18 4.00 - 5.21 x10(6)/[facility] Hemoglobin 13.0 11.7 - 15.5 g/dL [facility] Hematocrit 38.1 35.7 - 45.8 % [facility] Mean Cell Volume 91.1 82.6 - 94.[address] [facility] Mean Cell Hemoglobin 31.1 27.1 - 32.[address] [facility] Mean Cell Hemoglobin Concentration 34.1 31.7 - 35.0 g/dL [facility] Platelet 295 145 - 357 x10(3)/[facility] RDW Standard Deviation 40.6 37.0 - 46.[address] [facility] RDW coefficient of variation 12.1 11.5 - 14.1 % [facility] Mean Platelet Volume 9.0 7.6 - 12.[address] [facility] NRBC% auto 0.0 % [facility] NRBC Absolute 0.000 0.000 - 0.000 x10(3)/[facility] Blood 12/04/2022 1:29 PM EDT 12/04/2022 1:55 PM EDT Narrative Resulting Agency Comment Spec In Lab L Tai Christopher MD HEMATOLOGY ORDERABLE S Performing Organization Address City/[facility]/ZIP Co de Phone Number [facility] [place] [address] * CRP, acute inflammation (12/04/2022 1:29 PM EDT) C-Reactive Protein <3.0 <=4.9 mg/L [facility] Blood 12/04/2022 1:29 PM EDT 12/04/2022 1:55 PM EDT Narrative Resulting Agency Comment Spec In Lab L Tai Christopher MD CHEMISTRY ORDERABLES Performing Organization Address City/[facility] Co de Phone Number [facility] [place] [address] * Hepatic Function Panel (12/04/2022 1:29 PM EDT) Protein, Total 6.8 6.1 - 8.0 g/dL [facility] Albumin 4.1 3.2 - 5.2 g/dL [facility] Aspartate Aminotransferase 22 0 - 30 unit/L [facility] Alanine Aminotransferase 20 0 - 30 unit/L [facility] Alkaline Phosphatase 77 35 - 105 unit/L [facility] Bilirubin, Total 0.5 0.2 - 1.3 mg/dL [facility] Bilirubin, Direct 0.1 0.0 - 0.3 mg/dL [facility] Blood 12/04/2022 1:29 PM EDT 12/04/2022 1:55 PM EDT Narrative Resulting Agency Comment Spec In Lab L Tai Christopher MD CHEMISTRY ORDERABLES Performing Organization Address City/[facility]/ZIP Co de Phone Number [facility] [place] [address] documented in this encounter Visit Diagnoses Diagnosis Crohn's disease of small and large intestines with complication Encounter for monitoring of adalimumab therapy documented in this encounter Care Teams Review Nurse Relationship Specialty Start Date End Date Valarie Phillips MD [address] [place] [address] PCP - General General Internal Medicine 09/06/17 documented as of this encounter
--- OUTSIDE RECORDS SUMMARY | 2024-04-14 02:11 | XMS_ITS | Encounter Summary ---
[place] [address] Care Team Providers Care Job Press Feeder Name Role Phone Valarie Phillips MD Primary Care Provider [phone] Reason for Visit * Reason Comments Specialty Refill Management humira Encounter Details Date Type Department Care Team (Late st Contact Info) Description 08/05/2022 Specialty [place] [phone] Karey Moore, [facility] Social History Tobacco Use Types Packs/Day [...] as of this encounter Progress Notes * Karey Moore - 08/05/2022 9:20 AM EDT Clinical Management Plan: Refill Specialty Pharmacy Consultation; Karey Moore Comprehensive Medication Management (CMM) Janice Petty Denzel Ms. Janice Mahoney is a 62 y.o. (1960) female who was contacted in regard to a specialty medication refill reminder. Contact made with patient regarding Humira. A review of the medication therapy was performed. The medication was refilled as scheduled, and all medication related questions and concerns were addressed. The specialty pharmacy staff will follow up with the patient 5-7 days priorto next refill. Was a change made to the Care Plan: No Allergies and Drug intolerance: Allergies Allergen Reactions ??? [place] Medication Reconciliation Discrepancies (compared to [facility] med list) No Specialty Pharmacy Refill Questionnaire 08/05/2022 Refill Questionnaire What is the name of the specialty medication you are refilling? humira Are you taking any new medications? No Any new medical condition? No Any new allergies? No Any new side effects that are bothersome? No What date will you need this fill by? 08/12/2022 Adherence: Any missed doses? No Patient understands no changes to current drug regimen were made. Karey Moore 08/05/22 9:21 AM * Jennie Barkley [facility] - 08/05/2022 9:20 AM EDT Clinical Management Plan: Refill Specialty Pharmacy Consultation; Jennie Barkley [facility] Comprehensive Medication Management (CMM) Janice Mahoney is a 62 y.o. (1960) female who was contacted in regard to a specialty medication refill reminder. Contact made with patient regarding Humira. A review of the medication therapy was performed. The medication was refilled as scheduled, and all medication related questions and concerns were addressed. The specialty pharmacy staff will follow up with the patient 5-7 days priorto next refill. Was a change made to the Care Plan: yes - patient was concerned she wasn't receiving citrate free formulation of Humira due to burning sensation after injections. I confirmed with her that she is receiving the citrate free and adivsed her to ice area before and after injections to see if that helpswith the burning and we will check in with her at the next refill. If yes, should the medication be held: No Assessment and Recommendations: Medication Management Type of Medication Management: chronic disease management, targeted medication review Referred By: provider Recipient: beneficiary Provider: plan sponsor pharmacist [facility] Follow-up Time Spent: 1-15 min Method of Contact: by telephone Cognitive Ability: good Cognitive Impairment Status Verified this Year: no Allergies and Drug intolerance: Allergies Allergen Reactions ??? [place] Medication Reconciliation Discrepancies (compared to [facility] med list) -no Specialty Pharmacy Refill Questionnaire 08/05/2022 Refill Questionnaire What is the name of the specialty medication you are refilling? humira Are you taking any new medications? No Any new medical condition? No Any new allergies? No Any missed doses since your last fill? 0 Any new side effects that are bothersome? Yes Please explain pt states buring after injection What date will you need this fill by? 08/12/2022 Adherence: Specialty Med Adherence Patient Demonstrates Understanding of Importance of Adherence: Yes Educational Information or Adherence Tools Provided: Yes Patient Reported X Missed Doses in the Last Month: 0 Provider-Estimated Medication Adherence Level: 90-100% Adherence Tools Used: directed education Pt understands no changes to current drug regimen were made at the appointment and that [facility] is providing recommendations (summary located at top of note) for provider review and follow up. Jennie Barkley RPH 08/05/22 9:55 AM documented in this encounter Plan of Treatment Upcoming Encounters Date Type Department Care Team (Late st Contact Info) Description 07/18/2024 1:00 PM EDT TH Visit (TeleHealth) [place] [address] Malinda Christopher MD [facility] [place] [address] documented as of this encounter Goals Goal Patient Goal Type Associated Problems Recent Progress Patient-Stated? Author [facility] Medication Compliance and Understanding Patient Facing Action Plan Lakeisha Matos [facility] Note: Achieve and maintain control of Crohn's symptoms as assessed by specialist every 3 to 6 months or more documented as of this encounter Visit Diagnoses Not on filedocumented in this encounter Care Teams Job Press Feeder Relationship Specialty Start Date End Date Valarie Phillips MD [address] [place] [address] PCP - General General Internal Medicine 09/06/17 documented as of this encounter
--- OUTSIDE RECORDS SUMMARY | 2024-04-14 02:11 | XMS_ITS | Encounter Summary ---
[place] [address] Care Team Providers Care Sales And Support Center Agent Name Role Phone Valarie Phillips MD Primary Care Provider [phone] Reason for Visit * Reason Comments Medication Management Specialty Refill Management Encounter Details Date Type Department Care Team (Late st Contact Info) Description 07/29/2021 Specialty [place] [phone] Lucio Jones [facility] Social History Tobacco Use Types Packs/Day Years [...] this encounter Progress Notes * Lucio Jones [facility] - 07/29/2021 2:27 PM EDT Clinical Management Plan: Refill Specialty Pharmacy Consultation; Lucio Jones [facility] Comprehensive Medication Management (CMM) Janice Petty Denzel Ms. Janice Mahoney is a 61 [...] and Drug intolerance: Allergies Allergen Reactions ??? [place] Medication Reconciliation Discrepancies (compared to [facility] med list) No Specialty Pharmacy Refill Questionnaire Refill Questionnaire 07/29/2021 What is the name of the specialty medication you are refilling? humira Are you taking any new medications? No Any new medical condition? No Any new allergies? No Any new side effects that are bothersome? No What date will you need this fill by? 08/09/2021 Adherence: Any missed doses? No Patient understands no changes to current drug regimen were made. Lucio Jones RPH 07/29/21 2:28 PM documented in this encounter Plan of Treatment Upcoming Encounters Date Type Department Care Team (Late st Contact Info) Description 07/18/2024 1:00 PM EDT TH Visit (TeleHealth) [place] [address] Malinda Christopher MD [facility] [place] [address] documented as of this encounter Goals Goal Patient Goal Type Associated Problems Recent Progress Patient-Stated? Author [facility] Medication Compliance and Understanding Patient Facing Action Plan Lakeisha Matos [facility] Note: Achieve and maintain control of Crohn's symptoms as assessed by specialist every 3 to 6 months or more documented as of this encounter Visit Diagnoses Not on filedocumented in this encounter Care Teams Sales And Support Center Agent Relationship Specialty Start Date End Date Valarie Phillips MD [address] [place] [address] PCP - General General Internal Medicine 09/06/17 documented as of this encounter
--- OUTSIDE RECORDS SUMMARY | 2024-04-14 02:11 | XMS_ITS | Encounter Summary ---
[place] [address] Care Team Providers Care Utility Worker Film Processing Name Role Phone Valarie Phillips MD Primary Care Provider [phone] Reason for Visit * Reason Comments Specialty Pharmacy Review Humira Encounter Details Date Type Department Care Team (Late st Contact Info) Description 12/23/2022 Specialty [place] [address] Livan Harmon, [facility] Social History Tobacco Use Types Packs/Day [...] this encounter Progress Notes * Livan Harmon - 12/23/2022 11:59 PM EDT The [facility] has completed a benefits investigation for Janice Mahoney to review theireligibility to fill at [facility]. Per patient's medication list they are prescribed Humira and the medication is currently filled through the [facility] documented in this encounter Plan of Treatment Upcoming Encounters Date Type Department Care Team (Late st Contact Info) Description 07/18/2024 1:00 PM EDT TH Visit (TeleHealth) [place] [address] Malinda Christopher MD [facility] [place] [address] documented as of this encounter Goals Goal Patient Goal Type Associated Problems Recent Progress Patient-Stated? Author [facility] Medication Compliance and Understanding Patient Facing Action Plan Lakeisha Matos, [facility] Note: Achieve and maintain control of Crohn's symptoms as assessed by specialist every 3 to 6 months or more documented as of this encounter Visit Diagnoses Not on filedocumented in this encounter Care Teams Utility Worker Film Processing Relationship Specialty Start Date End Date Valarie Phillips MD [address] [facility] [place] [address] PCP - General General Internal Medicine 09/06/17 documented as of this encounter
--- OUTSIDE RECORDS SUMMARY | 2024-04-14 02:11 | XMS_ITS | Encounter Summary ---
[place] [address] Care Team Providers Care Gun Welder Name Role Phone Karey Robert APRN Primary Care Provider [phone] Reason for Visit * Reason Comments Specialty Refill Management Encounter Details Date Type Department Care Team (Late st Contact Info) Description 04/10/2023 Specialty [place] [phone] Leidy Martinez, [facility] Social History Tobacco Use Types Packs/Day Years [...] as of this encounter Progress Notes * Leidy Martinez - 04/10/2023 9:21 AM EST Clinical Management Plan: Refill Specialty Pharmacy Consultation; Leidy Martinez Comprehensive Medication Management (CMM) Janice Malinda Denzel Ms. Janice Mahoney is a 63 y.o. [...] Allergies and Drug intolerance: Allergies Allergen Reactions [place] Medication Reconciliation Discrepancies (compared to [facility] med list) No Specialty Pharmacy Refill Questionnaire More data exists 04/10/2023 Refill Questionnaire What is the name of the specialty medication you are refilling? Humira Are you taking any new medications? No Any new medical condition? No Any new allergies? No Any new side effects that are bothersome? No What date will you need this fill by? 04/24/2023 Adherence: Any missed doses? No Patient understands no changes to current drug regimen were made. Leidy Martinez 04/10/23 9:22 AM documented in this encounter Plan of Treatment Upcoming Encounters Date Type Department Care Team (Late st Contact Info) Description 07/18/2024 1:00 PM EDT TH Visit (TeleHealth) [place] [address] Malinda Christopher MD [facility] [place] [address] documented as of this encounter Goals Goal Patient Goal Type Associated Problems Recent Progress Patient-Stated? Author [facility] Medication Compliance and Understanding Patient Facing Action Plan Lakeisha Matos, [facility] Note: Achieve and maintain control of Crohn's symptoms as assessed by specialist every 3 to 6 months or more documented as of this encounter Visit Diagnoses Not on filedocumented in this encounter Care Teams Gun Welder Relationship Specialty Start Date End Date Karey Robert APRN [address] [place] [address] PCP - General Geriatric Medicine 12/29/22 documented as of this encounter
--- OUTSIDE RECORDS SUMMARY | 2024-04-14 02:11 | XMS_ITS | Encounter Summary ---
Author Organization Formerly [facility] [place] [address] Care Team Providers Care Hide Shaker Name Role Phone Valarie Phillips MD Primary Care Provider [phone] Encounter Details Date Type Department Care Team (Late st Contact Info) Description 06/03/2021 Telephone Gastroenterology at [facility] [place] [phone] Diaz Mayo RN Social History Tobacco Use Types Packs/Day Years [...] encounter Miscellaneous Notes * Telephone Encounter - Diaz Mayo RN - 06/03/2021 9:02 AM EDT Called Janice to discuss positive quantiferon gold test result. Per Dr. Christopher she should have a CXR and PPD done to f/u on this. Discussed results with her. No need to take precautions when around others or in public as it is unlikely to be active TB. Janice notes that over the summer she had some wheezing. Has a history of childhood asthma. Lungssounded good at the time, but no CXR was done. Was treated with steroids. Currently without any respiratory symptoms. She will do CXR at [facility]. Faxed order there for her. Will call PCP to arrange PPD. Faxed and called PCP's office so they are aware of recommendation for PPD. No further questions at this time * Telephone Encounter - Diaz Mayo RN - 06/03/2021 9:00 AM EDT ----- Message from Janice Mahoney sent at 06/02/2021 7:51 PM EDT ----- Regarding: QUANTIFERON-TB GOLD Sorry about my bad spelling. It is [facility] in [facility]. I have to tell you that I???m pretty freaked out about this whole thing! Am I supposed to stay awayfrom people because this is contagious if I have tuberculosis? And why am I prone to catching tuberculosis? How could this even happen? I don???t understand. I guess I would really like to talk to somebody. I am available by phone. [phone] I would really appreciate a call. documented in this encounter Plan of Treatment Upcoming Encounters Date Type Department Care Team (Late st Contact Info) Description 07/18/2024 1:00 PM EDT TH Visit (TeleHealth) [place] [address] Malinda Christopher MD [facility] [place] [address] documented as of this encounter Goals Goal Patient Goal Type Associated Problems Recent Progress Patient-Stated? Author [facility] Medication Compliance and Understanding Patient Facing Action Plan Lakeisha Matos, [facility] Note: Achieve and maintain control of Crohn's symptoms as assessed by specialist every 3 to 6 months or more documented as of this encounter Visit Diagnoses Not on filedocumented in this encounter Care Teams Hide Shaker Relationship Specialty Start Date End Date Valarie Phillips MD [address] [place] [address] PCP - General General Internal Medicine 09/06/17 documented as of this encounter
--- OUTSIDE RECORDS SUMMARY | 2024-04-14 02:11 | XMS_ITS | Encounter Summary ---
Author Organization [facility] [place] [address] Care Team Providers Care Mushroom Farmer Name Role Phone Karey Robert APRN Primary Care Provider [phone] Encounter Details Date Type Department Care Team (Late st Contact Info) Description 04/28/2023 Telephone Gastroenterology at [facility] [place] [phone] Diaz Mayo RN Social History Tobacco Use [...] Telephone Encounter - Diaz Mayo RN - 04/28/2023 9:41 AM EST Called patient regarding recent results Per Dr. Christopher: Pls give Ms Mahoney a call with followin. Humira levels within goal 2. Quant gold pos, like last year. Recommend that she get a Tspot. Had a CXR last year that was neg. Relayed above to Janice. She will come to lab for T-Spot. Advised her blood draw must be done Thursday - at [facility] lab before 1:00 pm. We will fax required paper requisition form for the test to the lab but keep a back up copy at 4L in case she comes and the lab can't find the form. No other questions at this time. documented in this encounter Plan of Treatment Upcoming Encounters Date Type Department Care Team (Late st Contact Info) Description 07/18/2024 1:00 PM EDT TH Visit (TeleHealth) [place] [address] Malinda Crhistopher MD [facility] [place] [address] documented as of this encounter Goals Goal Patient Goal Type Associated Problems Recent Progress Patient-Stated? Author [facility] Medication Compliance and Understanding Patient Facing Action Plan Lakeisha Matos, [facility] Note: Achieve and maintain control of Crohn's symptoms as assessed by specialist every 3 to 6 months or more documented as of this encounter Visit Diagnoses Not on filedocumented in this encounter Care Teams Mushroom Farmer Relationship Specialty Start Date End Date Karey Robert APRN [address] [place] [address] PCP - General Geriatric Medicine 12/29/22 documented as of this encounter
--- OUTSIDE RECORDS SUMMARY | 2024-04-14 02:11 | XMS_ITS | Encounter Summary ---
Author Organization [facility] [place] [address] Care Team Providers Care Chief Inspector Name Role Phone Karey Robert APRN Primary Care Provider [phone] Reason for Visit * Reason Comments Specialty Refill Management Humira (2 Pe n) 40ng/0.4ml Pnkt Encounter Details Date Type Department Care Team (Late st Contact Info) Description 05/13/2023 Specialty [place] [phone] Silverio Mcnamara, [facility] Social History Tobacco Use Types Packs/Day [...] this encounter Progress Notes * Silverio Mcnamara - 05/13/2023 3:57 PM EST Clinical Management Plan: Refill Specialty Pharmacy Consultation; Silverio Mcnamara Comprehensive Medication Management (CMM) Janice Mahoney is a 63 y.o. (1960) female who was contacted in regard to a specialty medication refill reminder. The patient requested a refill of humira. A review of the medication therapy was performed. The medication was refilled as scheduled, and all medication related questions and concerns were addressed. The specialty pharmacy staff will follow up with the patient 5-7 days prior to next refill. Was a change made to the Care Plan: No Allergies and Drug intolerance: Allergies Allergen Reactions Robinson Medication Reconciliation Discrepancies (compared to [facility] med list) No Specialty Pharmacy Refill Questionnaire More data exists 05/13/2023 Refill Questionnaire What is the name of the specialty medication you are refilling? Humira (2 Pen) 40ng/0.4ml Pnkt Are you taking any new medications? No Any new medical condition? No Any new allergies? No Any new side effects that are bothersome? No What date will you need this fill by? 05/22/2023 Adherence: Any missed doses? No Patient understands no changes to current drug regimen were made. Silverio Mcnamara 05/13/23 3:57 PM documented in this encounter Plan of Treatment Upcoming Encounters Date Type Department Care Team (Late st Contact Info) Description 07/18/2024 1:00 PM EDT TH Visit (TeleHealth) [place] [address] Malinda Christopher MD [facility] DR [place] [address] documented as of this encounter Goals Goal Patient Goal Type Associated Problems Recent Progress Patient-Stated? Author [facility] Medication Compliance and Understanding Patient Facing Action Plan Lakeisha Matos, [facility] Note: Achieve and maintain control of Crohn's symptoms as assessed by specialist every 3 to 6 months or more documented as of this encounter Visit Diagnoses Not on filedocumented in this encounter Care Teams Chief Inspector Relationship Specialty Start Date End Date Karey Robert APRN [address] [place] [address] PCP - General Geriatric Medicine 12/29/22 documented as of this encounter
--- OUTSIDE RECORDS SUMMARY | 2024-04-14 02:11 | XMS_ITS | Encounter Summary ---
Author Organization [facility] [place] [address] Care Team Providers Care Independent Jeweler Name Role Phone Karey Robert APRN Primary Care Provider [phone] Encounter Details Date Type Department Care Team (Latest Contact Info) Description 04/22/2023 12:50 PM EST Laboratory Appointment Lab [address] [place] [address] Crohn's disease of small and large intestines with complication; Encounter for monitoring of adalimumab therapy; Colonic Crohn's with mid small bowel segment Social History Tobacco Use Types Packs/Day Years [...] TH Visit (TeleHealth) [place] [address] Malinda Christopher MD [facility] [place] [address] documented as of this encounter Goals Goal Patient Goal Type Associated Problems Recent Progress Patient-Stated? Author [facility] Medication Compliance and Understanding Patient Facing Action Plan Lakeisha Matos, [facility] Note: Achieve and maintain control of Crohn's symptoms as assessed by specialist every 3 to 6 months or more documented as of this encounter Procedures Procedure Name Priority Date/Time Associated Diagnosis Comments ADALIMUMAB QUANT WITH REFLEX TO ANTIBODY Routine 04/22/2023 12:19 PM EST Colonic Crohn's with mid small bowel segment CRP, ACUTE INFLAMMATION Routine 04/22/2023 12:19 PM EST Crohn's disease of small and large intestines with complication Encounter for monitoring of adalimumab therapy QUANTIFERON-TB GOLD Routine 04/22/2023 1 2:19 PM EST Colonic Crohn's with mid small bowel segment HEMOGRAM Routine 04/22/2023 12:19 PM EST Crohn's disease of small and large intestines with complication Encounter for monitoring of adalimumab therapy DIFFERENTIAL, AUTOMATED Routine 04/22/2023 12:19 PM EST Crohn's disease of small and large intestines with complication Encounter for monitoring of adalimumab therapy CBC (WITH DIFF) Routine 04/22/2023 12:19 PM EST Crohn's disease of small and large intestines with complication Encounter for monitoring of adalimumab therapy MAGNESIUM Routine 04/22/2023 12:19 PM EST Colonic Crohn's with mid small bowel segment HEPATIC FUNCTION PANEL Routine 04/22/2023 12:19 PM EST Crohn's disease of small and large intestines with complication Encounter for monitoring of adalimumab therapy BASIC METABOLIC PANEL Routine 04/22/2023 12:19 PM EST Colonic Crohn's with mid small bowel segment documented in this encounter Results * Differential, Automated (04/22/2023 12:19 PM EST) Neutrophil % 37.6 % [facility] Neutrophil Absolute 2.33 1.70 - 6.10 x10(3)/[facility] LABORATORY Lymph % 49.0 % [facility] Lymphocytes Abs 3.0 0.9 - 3.2 x10(3)/[facility] LABORATORY Monocyte % 9.2 % [facility] Monocyte Abs 0.6 0.3 - 0.9 x10(3)/[facility] LABORATORY Eos % 3.4 % [facility] Eosinophils Abs 0.2 0.0 - 0.4 x10(3)/[facility] LABORATORY Basophil % 0.6 % [facility] Baso Absolute 0.0 0.0 - 0.1 x10(3)/[facility] LABORATORY Immature Gran % 0.20 % [facility] Comment: Immature granulocytes(IG's)percentage and absolute count will include metamyelocytes, myelocytes, and promyelocytes. Blood smears from CBCs yielding IG's will be scanned manually for concordance. If this scan disagrees with the automated IG or if promyelocytes are noted, a manual differential will be performed. Immature Gran Absolute 0.01 0.00 - 0.04 x10(3)/[facility] LABORATORY Blood 04/22/2023 12:1 9 PM EST 04/22/2023 12:25 PM EST Narrative Resulting Agency Comment Spec In Lab L Tai Christopher MD HEMATOLOGY ORDERABLE S [facility] [place] [address] * Hemogram (04/22/2023 12:19 PM EST) White Blood Cell 6.2 4.0 - 9.5 x10(3)/[facility] LABORATORY Red Blood Cell 4.13 4.00 - 5.21 x10(6)/[facility]ORY Hemoglobin 12.5 11.7 - 15.5 g/dL [facility] Hematocrit 37.8 35.7 - 45.8 % [facility] Mean Cell Volume 91.5 82.6 - 94.4 fL [facility] Mean Cell Hemoglobin 30.3 27.1 - 32.0 pg [facility] Mean Cell Hemoglobin Concentration 33.1 31.7 - 35.0 g/dL [facility] Platelet 272 145 - 357 x10(3)/[facility] LABORATORY RDW Standard Deviation 41.0 37.0 - 46.0 fL [facility] RDW coefficient of variation 12.3 11.5 - 14.1 % [facility] Mean Platelet Volume 8.8 7.6 - 12.9 fL [facility] NRBC% auto 0.0 % [facility] NRBC Absolute 0.000 0.000 - 0.000 x10(3)/mcL [facility] Blood 04/22/2023 12:1 9 PM EST 04/22/2023 12:25 PM EST Narrative Resulting Agency Comment Spec In Lab L Tai Christopher MD HEMATOLOGY ORDERABLE S [facility] [address] [place] [address] * (ABNORMAL) Basic Metabolic Panel (non-fasting) (04/22/2023 12:19 PM EST) Glucose 98 65 - 199 mg/dL [facility] Comment:Diabetes: >=200 mg/d L plus symptoms Blood Urea Nitrogen 15 8 - 18 mg/dL [facility] Creatinine 0.66(L) 0.70 - 1.20 mg/dL [facility] Sodium 142 135 - 145 mmol/L [facility] Potassium 4.3 3.5 - 5.0 mmol/L [facility] Comment: Please note: ??Patients with WBC >100,000 may have falsely elevated Potassium levels. ??For accurate Potassium quantification in these patients send serum separator tube (gold top) for subsequent determinations. ??Contact the Clinical Chemistry Laboratory if there are any questions. Chloride 106 98 - 107 mmol/L [facility] Carbon Dioxide 27 22 - 31 mmol/L [facility] Anion Gap 9 5 - 15 mmol/L [facility] Calcium 9.1 8.5 - 10.5 mg/dL [facility] Est Glomerular Filtration Rate 98 >=60 mL/min/1. 73 m?? [facility] Comment: This patient's estimated GFR was [...] Christopher MD CHEMISTRY ORDERABLES Performing Organization Address [facility] Co de Phone Number [facility] [place] [address] * Magnesium (04/22/2023 12:19 PM EST) Magnesium 0.99 0.69 - 1.07 mmol/L [facility] Blood 04/22/2023 12:1 9 PM EST 04/22/2023 12:25 PM EST Narrative Resulting Agency Comment Spec In Lab L Tai Christopher MD CHEMISTRY ORDERABLES Performing Organization Address [facility] de Phone Number [facility] [place] [address] * (ABNORMAL) QuantiFERON-TB Gold (04/22/2023 12:19 PM EST) Quantiferon Nil 0.165 IU/mL [facility] QFT TB Ag1-Nil 0.506 IU/mL [facility] QFT TB Ag2-Nil 0.033 IU/mL [facility] Quantiferon Mitogen-Nil 9.835 IU/mL [facility] Quantiferon-TB Gold Positive(A) Negative [facility] Quantiferon Tb Interp M. tuberculosis infection likely A positive specimen should have a TB1 Ag and/or TB2 Ag minus Nil value greater than or equal to 0.35 IU/mL and the TB Ag minus Nil value from the same tube must be greater than or equal to 25% of the Nil Value. A positive QFT-Plus result should be followed by further medical evaluation for active tuberculosis disease (e.g. Acid fast bacilli smear and culture, chest X-ray). A positive QFT-Plus result can suggest and support the diagnosis of tuberculosis disease. However ESAT-6, CFP-10 and TB7.7 antigens are not unique to M. tuberculosis and are also found in other mycobacteria such as M. kansasii, M. szulgai, and M. marinum. Infection with these other organisms may also produce QTF-Plus positive results. If such infections are suspected alternative tests should be performed. [facility] Blood 04/22/2023 12:1 9 PM EST 04/23/2023 7:22 AM EST Narrative Resulting Agency Comment Spec In Lab Malinda Christopher MD CHEMISTRY ORDERABLES [facility] [place] [address] * Adalimumab Quant with Reflex to Antibody (04/22/2023 12:19 PM EST) Adalimumab Level (JULY) 20.8 mcg/mL [facility] Comment: For clinical assessment of response to therapy, adalimumab should be measured at trough. When adalimumab trough concentrations are greater than 8.0 mcg/mL, clinically relevant [id number] are unlikely and reflex testing will not be performed. REFERENCE VALUE Limit of Quantitation = 0.8 mcg/mL ADDITIONAL INFORMATION This test was developed and its performance characteristics determined by [facility] in a manner consistent with CLIA requirements. This test has not been cleared or approved by the U.S. Food and Drug Administration. Test Performed by: [facility] - [address] [place] [address] Bisque Tile Burner: Fermin Gordillo M.D. Ph.D.; CLIA# [id number] Blood 04/22/2023 12:1 9 PM EST 04/22/2023 4:07 PM EST Narrative Resulting Agency Comment Spec In Lab L Tai Christopher MD LAB SEND OUT ORDERAB LES Performing Organization Address City/[facility]/ZIP Co de Phone Number [facility] [place] [address] * CRP, acute inflammation (04/22/2023 12:19 PM EST) C-Reactive Protein <3.0 <=4.9 mg/L [facility] Blood 04/22/2023 12:1 9 PM EST 04/22/2023 12:25 PM EST Narrative Resulting Agency Comment Spec In Lab L Tai Christopher MD CHEMISTRY ORDERABLES Performing Organization Address [facility] Co de Phone Number [facility] [place] [address] * Hepatic Function Panel (04/22/2023 12:19 PM EST) Protein, Total 7.2 6.1 - 8.0 g/dL [facility] Albumin 4.4 3.2 - 5.2 g/dL [facility] Aspartate Aminotransferase 25 0 - 30 unit/L [facility] Alanine Aminotransferase 27 0 - 30 unit/L [facility] Alkaline Phosphatase 72 35 - 105 unit/L [facility] Bilirubin, Total 0.2 0.2 - 1.3 mg/dL [facility] Bilirubin, Direct 0.1 0.0 - 0.3 mg/dL [facility] Blood 04/22/2023 12:1 9 PM EST 04/22/2023 12:25 PM EST Narrative Resulting Agency Comment Spec In Lab L Tai Christopher MD CHEMISTRY ORDERABLES Performing Organization Address [facility] Co de Phone Number [facility] [place] [address] documented in this encounter Visit Diagnoses Diagnosis Crohn's disease of small and large intestines with complication Encounter for monitoring of adalimumab therapy Colonic Crohn's with mid small bowel segment documented in this encounter Care Teams Independent Jeweler Relationship Specialty Start Date End Date Karey Robert APRN [address] [place] [address] PCP - General Geriatric Medicine 12/29/22 documented as of this encounter
--- OUTSIDE RECORDS SUMMARY | 2024-04-14 02:11 | XMS_ITS | Encounter Summary ---
[place] [address] Care Team Providers Care Alarm Installation Technician Name Role Phone Valarie Phillips MD Primary Care Provider [phone] Reason for Visit * Reason Comments Prior Authorization Humira PEN 40mg/0.4m l PNKT Encounter Details Date Type Department Care Team (Late st Contact Info) Description 05/15/2022 Specialty [place] [phone] Mel Cross, FEATHER RENOVATOR Social History Tobacco Use Types Packs/Day Years [...] Progress Notes * Mel Cross CPHT - 05/15/2022 3:08 PM EST [facility], Benefits Investigation Patient: Janice Mahoney Patient : 1960 Patient Address: [address] [place] [address] (home) Medication Name: ADALIMUMAB 40 MG/0.4 ML SUBCUTANEOUS PEN KIT Medication ID: [id number] [place] [facility] Patient Location Comment: Medication Strength Frequency Requested: Humira PEN 40mg/0.4ml PNKT, inject 0.4ml (40mg) subcutaneously once every 7 days. Qty/Day Supply: 07/04 New Start: Renewal Diagnosis & ICD-10 Code: K50.819 Subscriber Insurance: Subscriber Insurance Comment: [facility] ([employer]) Phone: [phone] Fax: Physician: Malinda GARNICA Physician Comment : PA Status: PA on File Insurance mandated Pharmacy: [facility]: YES Insurance requirements/notes: PA on file for Humira PEN 40mg/0.4ml PNKT, qty 07/04 through 07/24/2023. None Copay: $0 Copay assistance: Copay assistance comment: Pharmacy staff will be reaching out to the patient to inform them of their medication's [facility]. If applicable, a pharmacist will speak with the patient to offer our specialty pharmacy services and to arrange delivery of their medication. Mel Cross CPHT 05/15/22 3:18 PM documented in this encounter Plan of Treatment Upcoming Encounters Date Type Department Care Team (Late st Contact Info) Description 07/18/2024 1:00 PM EDT TH Visit (TeleHealth) [place] [address] Malinda Garnica MD [facility] [place] [address] documented as of this encounter Goals Goal Patient Goal Type Associated Problems Recent Progress Patient-Stated? Author [facility] Medication Compliance and Understanding Patient Facing Action Plan Lakeisha Matos, [facility] Note: Achieve and maintain control of Crohn's symptoms as assessed by specialist every 3 to 6 months or more documented as of this encounter Visit Diagnoses Not on filedocumented in this encounter Care Teams Alarm Installation Technician Relationship Specialty Start Date End Date Valarie Phillips MD [address] [place] [address] PCP - General General Internal Medicine 09/06/17 documented as of this encounter
--- OUTSIDE RECORDS SUMMARY | 2024-04-14 02:11 | XMS_ITS | Encounter Summary ---
Author Organization [facility] [place] [address] Care Team Providers Care Hairspring Cutter Name Role Phone Karey Robert APRN Primary Care Provider [phone] Reason for Visit * Reason Comments Medication Management Specialty Refill Management Encounter Details Date Type Department Care Team (Late st Contact Info) Description 03/17/2023 Specialty Pharmacy Pharmacy at [facility] [place] [phone] Lucio Jones, [facility] Social History Tobacco Use Types [...] this encounter Progress Notes * Lucio Jones [facility] - 03/17/2023 12:52 PM EST Clinical Management Plan: Refill Specialty Pharmacy Consultation; Lucio Jones [facility] Comprehensive Medication Management (CMM) Janice Mahoney is a 63 y.o. (1960) female who was contacted in regard to a specialty medication refill reminder. patient requested a refill of Humira. A review of the medication therapy was performed. The medication was refilled as scheduled, and all medication related questions and concerns were addressed. The specialty pharmacy staff will follow up with the patient 5-7 days prior to next refill. *Janice reported being COVID positive today with symptoms. She has contacted her provider regardingthis. She will hold her dose if fever is present and symptoms persist Was a change made to the Care Plan: no If yes, should the medication be held: No Assessment and Recommendations: Medication Management Type of Medication Management: chronic disease management, targeted medication review Referred By: pharmacist Recipient: beneficiary Provider: plan sponsor pharmacist Visit Type: [facility] Campusc Follow-up Time Spent: 1-15 min Method of Contact: by telephone Cognitive Ability: good Cognitive Impairment Status Verified this Year: no Allergies and Drug intolerance: Allergies Allergen Reactions [place] Medication Reconciliation Discrepancies (compared to [facility] med list) -none Specialty Pharmacy Refill Questionnaire More data exists 03/17/2023 Refill Questionnaire What is the name of the specialty medication you are refilling? humira Are you taking any new medications? No Any new medical condition? No Any new allergies? No Any missed doses since your last fill? 0 Any new side effects that are bothersome? No What date will you need this fill by? 03/20/2023 Adherence: Specialty Med Adherence Patient Demonstrates Understanding of Importance of Adherence: Yes Educational Information or Adherence Tools Provided: No Patient Reported X Missed Doses in the Last Month: 0 Provider-Estimated Medication Adherence Level: 90-100% Adherence Tools Used: directed education Pt understands no changes to current drug regimen were made at the appointment and that [facility] is providing recommendations (summary located at top of note) for provider review and follow up. Lucio Jones RPH 03/17/23 12:54 PM documented in this encounter Plan of Treatment Upcoming Encounters Date Type Department Care Team (Late st Contact Info) Description 07/18/2024 1:00 PM EDT TH Visit (TeleHealth) [place] [address] Malinda Christopher MD [facility] [place] [address] documented as of this encounter Goals Goal Patient Goal Type Associated Problems Recent Progress Patient-Stated? Author [facility] Medication Compliance and Understanding Patient Facing Action Plan Lakeisha Matos [facility] Note: Achieve and maintain control of Crohn's symptoms as assessed by specialist every 3 to 6 months or more documented as of this encounter Visit Diagnoses Not on filedocumented in this encounter Care Teams Hairspring Cutter Relationship Specialty Start Date End Date Karey Robert APRN [address] [place] [address] PCP - General Geriatric Medicine 12/29/22 documented as of this encounter
--- OUTSIDE RECORDS SUMMARY | 2024-04-14 02:11 | XMS_ITS | Encounter Summary ---
Author Organization [facility] [place] [address] Care Team Providers Care Parachute Folder Name Role Phone Valarie Phillips MD Primary Care Provider [phone] Reason for Visit * Reason Comments Specialty Refill Management Encounter Details Date Type Department Care Team (Late st Contact Info) Description 03/12/2022 Specialty Pharmacy [place] [address] Aminata Duffy CPHT Social History Tobacco Use Types Packs/Day Years [...] as of this encounter Progress Notes * Aminata Duffy CPHT - 03/12/2022 10:02 AM EST Clinical Management Plan: Refill Specialty Pharmacy Consultation; Aminata Duffy CPHT Comprehensive Medication Management (CMM) Janice Mahoney Ms. Janice Mahoney is a 62 y.o. [...] and Drug intolerance: Allergies Allergen Reactions ??? [place] Medication Reconciliation Discrepancies (compared to [facility] med list) No Specialty Pharmacy Refill Questionnaire Refill Questionnaire 03/12/2022 What is the name of the specialty medication you are refilling? Humira Are you taking any new medications? No Please explain - Any new medical condition? No Any new allergies? No Any new side effects that are bothersome? No What date will you need this fill by? 03/21/2022 Adherence: Any missed doses? No Patient understands no changes to current drug regimen were made. Aminata Duffy CPHT 03/12/22 10:03 AM documented in this encounter Plan of Treatment Upcoming Encounters Date Type Department Care Team (Late st Contact Info) Description 07/18/2024 1:00 PM EDT TH Visit (TeleHealth) [place] [address] Malinda Christopher MD [facility] [place] [address] documented as of this encounter Goals Goal Patient Goal Type Associated Problems Recent Progress Patient-Stated? Author [facility] Medication Compliance and Understanding Patient Facing Action Plan Lakeisha Matos, [facility] Note: Achieve and maintain control of Crohn's symptoms as assessed by specialist every 3 to 6 months or more documented as of this encounter Visit Diagnoses Not on filedocumented in this encounter Care Teams Parachute Folder Relationship Specialty Start Date End Date Valarie Phillips MD [address] [place] [address] PCP - General General Internal Medicine 09/06/17 documented as of this encounter
--- OUTSIDE RECORDS SUMMARY | 2024-04-14 02:11 | XMS_ITS | Encounter Summary ---
[place] [address] Care Team Providers Care Financial Investment Manager Name Role Phone Valarie Phillips MD Primary Care Provider [phone] Reason for Visit * Reason Comments Prior Authorization Humira PEN 40mg/0.4m l PNKT Encounter Details Date Type Department Care Team (Late st Contact Info) Description 11/26/2022 Specialty [place] [phone] Mel Cross, PETROLEUM INSPECTOR Social History Tobacco Use Types Packs/Day Years [...] Progress Notes * Mel Cross CPHT - 11/26/2022 4:18 PM EDT [facility], Benefits Investigation Patient: Janice Mahoney Patient : 1960 Patient Address: [address] [place] [address] (home) Medication Name: ADALIMUMAB 40 MG/0.4 ML SUBCUTANEOUS PEN KIT Medication ID: [id number] Patient Location: [facility] Patient Location Comment: Medication Strength Frequency Requested: Humira PEN 40mg/0.4ml PNKT, Inject 0.4ml (40mg) subcutaneously once every 7 days. Qty/Day Supply: 07/04 New Start: Renewal Diagnosis & ICD-10 Code: K50.819 Crohn's disease of small and large intestines with complication Subscriber Insurance: Subscriber Insurance Comment: [facility] (IRX) Phone: [phone] Fax: Physician: Malinda GARNICA Physician Comment : PA Status: PA on File Insurance mandated Pharmacy: Fillable at [facility] Specialty Pharmacy: YES Insurance requirements/notes: PA on file for Humira PEN 40mg/0.4ml PNKT, qty 07/04 through 07/24/2023. Patient fills with Pharmacy and copay is $0. None Copay: $0 Copay assistance: Copay assistance comment: Pharmacy staff will be reaching out to the patient to inform them of [facility]. If applicable, a pharmacist will speak with the patient to offer our specialty pharmacy services and to arrange delivery of their medication. Mel Cross CPHT 11/26/22 4:23 PM documented in this encounter Plan of Treatment Upcoming Encounters Date Type Department Care Team (Late st Contact Info) Description 07/18/2024 1:00 PM EDT TH Visit (TeleHealth) [place] [address] Malinda Garnica MD [facility] [place] [address] documented as of this encounter Goals Goal Patient Goal Type Associated Problems Recent Progress Patient-Stated? Author [facility] Medication Compliance and Understanding Patient Facing Action Plan Lakeisha Matos, [facility] Note: Achieve and maintain control of Crohn's symptoms as assessed by specialist every 3 to 6 months or more documented as of this encounter Visit Diagnoses Not on filedocumented in this encounter Care Teams Financial Investment Manager Relationship Specialty Start Date End Date Valarie Phillips MD [address] [place] [address] PCP - General General Internal Medicine 09/06/17 documented as of this encounter
--- OUTSIDE RECORDS SUMMARY | 2024-04-14 02:11 | XMS_ITS | Encounter Summary ---
Author Organization [facility] [place] [address] Care Team Providers Care Major League Baseball Umpire Name Role Phone Valarie Phillips MD Primary Care Provider [phone] Encounter Details Date Type Department Care Team (Latest Contact Info) Description 12/04/2022 Travel Social History Tobacco Use Types Packs/Day [...] PM EDT TH Visit (TeleHealth) [place] [address] Malinda Christopher MD [facility] [place] [address] documented as of this encounter Goals Goal Patient Goal Type Associated Problems Recent Progress Patient-Stated? Author [facility] Medication Compliance and Understanding Patient Facing Action Plan Lakeisha Matos, [facility] Note: Achieve and maintain control of Crohn's symptoms as assessed by specialist every 3 to 6 months or more documented as of this encounter Visit Diagnoses Not on filedocumented in this encounter Care Teams [employer] League Baseball Umpire Relationship Specialty Start Date End Date Valarie Phillips MD [address] [place] [address] PCP - General General Internal Medicine 09/06/17 documented as of this encounter
--- OUTSIDE RECORDS SUMMARY | 2024-04-14 02:11 | XMS_ITS | Encounter Summary ---
Author Organization [facility] [place] [address] Care Team Providers Care Director Clinical Data Name Role Phone Valarie Phillips MD Primary Care Provider [phone] Reason for Visit * Reason Comments Specialty Refill Management Encounter Details Date Type Department Care Team (Late st Contact Info) Description 08/27/2021 Specialty Pharm[place] [address] Marti Mott CPHT Social History Tobacco Use Types Packs/Day [...] as of this encounter Progress Notes * Marti Jauregui CPHT - 08/27/2021 9:13 AM EDT Clinical Management Plan: Refill Specialty Pharmacy Consultation; Marti Jauregui CPHT Comprehensive Medication Management (CMM) Janice Petty Denzel [...] and Drug intolerance: Allergies Allergen Reactions ??? [place] Medication Reconciliation Discrepancies (compared to [facility] med list) No Specialty Pharmacy Refill Questionnaire Refill Questionnaire 08/27/2021 What is the name of the specialty medication you are refilling? Humira Are you taking any new medications? No Any new medical condition? No Any new allergies? No Any new side effects that are bothersome? No What date will you need this fill by? 09/06/2021 Adherence: Any missed doses? No Patient understands no changes to current drug regimen were made. Marti Jauregui CPHT 08/27/21 9:14 AM documented in this encounter Plan of Treatment Upcoming Encounters Date Type Department Care Team (Late st Contact Info) Description 07/18/2024 1:00 PM EDT TH Visit (TeleHealth) [place] [address] Malinda Christopher MD [facility] [place] [address] documented as of this encounter Goals Goal Patient Goal Type Associated Problems Recent Progress Patient-Stated? Author [facility] Medication Compliance and Understanding Patient Facing Action Plan Lakeisha Matos, [facility] Note: Achieve and maintain control of Crohn's symptoms as assessed by specialist every 3 to 6 months or more documented as of this encounter Visit Diagnoses Not on filedocumented in this encounter Care Teams Director Clinical Data Relationship Specialty Start Date End Date Valarie Phillips MD [address] [place] [address] PCP - General General Internal Medicine 09/06/17 documented as of this encounter
--- OUTSIDE RECORDS SUMMARY | 2024-04-14 02:11 | XMS_ITS | Encounter Summary ---
[place] [address] Care Team Providers Care Blower Blast Furnace Name Role Phone Valarie Phillips MD Primary Care Provider [phone] Encounter Details Date Type Department Care Team (Late st Contact Info) Description 05/13/2022 Refill [place] [phone] Malinda Christopher MD [facility] [place] [place] [address] Social History Tobacco Use Types Packs/Day Years [...] PM EDT TH Visit (TeleHealth) [place] [phone] Malinda Christopher MD [facility] [place] [place] [address] documented as of this encounter Goals Goal Patient Goal Type Associated Problems Recent Progress Patient-Stated? Author [facility] Medication Compliance and Understanding Patient Facing Action Plan Lakeisha Matos, [facility] Note: Achieve and maintain control of Crohn's symptoms as assessed by specialist every 3 to 6 months or more documented as of this encounter Visit Diagnoses Not on filedocumented in this encounter Care Teams Blower Blast Furnace Relationship Specialty Start Date End Date Valarie Phillips MD [address] [place] [address] PCP - General General Internal Medicine 09/06/17 documented as of this encounter
--- OUTSIDE RECORDS SUMMARY | 2024-04-14 02:11 | XMS_ITS | Encounter Summary ---
[place] [address] Care Team Providers Care Reference Investigator Name Role Phone Valarie Phillips MD Primary Care Provider [phone] Encounter Details Date Type Department Care Team (Latest Contact Info) Description 02/03/2022 Travel Social History Tobacco Use Types Packs/Day [...] PM EDT TH Visit (TeleHealth) [place] [address] Malinda Christopher MD [facility] [place] [address] documented as of this encounter Goals Goal Patient Goal Type Associated Problems Recent Progress Patient-Stated? Author [facility] Medication Compliance and Understanding Patient Facing Action Plan Lakeisha Matos, [facility] Note: Achieve and maintain control of Crohn's symptoms as assessed by specialist every 3 to 6 months or more documented as of this encounter Visit Diagnoses Not on filedocumented in this encounter Care Teams Reference Investigator Relationship Specialty Start Date End Date Valarie Phillips [place] [address] PCP - General General Internal Medicine 09/06/17 documented as of this encounter
--- OUTSIDE RECORDS SUMMARY | 2024-04-14 02:11 | XMS_ITS | Encounter Summary ---
Author Organization [facility] [address] Care Team Providers Care Band Instrument Maker Name Role Phone Karey Robert APRN Primary Care Provider [phone] Reason for Visit * Reason Comments Specialty Refill Management Humira (2 Pe n) 40mg/0.4ml Pnkt Encounter Details Date Type Department Care Team (Late st Contact Info) Description 06/15/2023 Specialty [place] [address] Silverio Mcnamara, [facility] Social History Tobacco Use Types Packs/Day [...] encounter Progress Notes * Silverio Mcnamara - 06/15/2023 11:54 AM EDT Clinical Management Plan: Refill Specialty Pharmacy Consultation; Silverio Mcnamara Comprehensive Medication Management (CMM) Janice Petty Mahoney Ms. Janice Mahoney is a 63 y.o. [...] Allergies and Drug intolerance: Allergies Allergen Reactions [place] Medication Reconciliation Discrepancies (compared to [facility] med list) No Specialty Pharmacy Refill Questionnaire More data exists 06/15/2023 Refill Questionnaire What is the name of the specialty medication you are refilling? Humira (2 Pen) 40mg/0.4ml Pnkt Are you taking any new medications? No Any new medical condition? No Any new allergies? No Any new side effects that are bothersome? No What date will you need this fill by? 06/19/2023 Adherence: Any missed doses? No Patient understands no changes to current drug regimen were made. Silverio Mcnamara 06/15/23 11:55 AM documented in this encounter Plan of Treatment Upcoming Encounters Date Type Department Care Team (Late st Contact Info) Description 07/18/2024 1:00 PM EDT TH Visit (TeleHealth) [place] [address] aMlinda Christopher MD [facility] [place] [address] documented as of this encounter Goals Goal Patient Goal Type Associated Problems Recent Progress Patient-Stated? Author [facility] Medication Compliance and Understanding Patient Facing Action Plan Lakeisha Matos, [facility] Note: Achieve and maintain control of Crohn's symptoms as assessed by specialist every 3 to 6 months or more documented as of this encounter Visit Diagnoses Not on filedocumented in this encounter Care Teams Band Instrument Maker Relationship Specialty Start Date End Date Karey Robert APRN [address] [place] [address] PCP - General Geriatric Medicine 12/29/22 documented as of this encounter
--- OUTSIDE RECORDS SUMMARY | 2024-04-14 02:11 | XMS_ITS | Encounter Summary ---
Author Organization [facility] [place] [address] Care Team Providers Care Rn Discharge Name Role Phone Karey Robert APRN Primary Care Provider [phone] Encounter Details Date Type Department Care Team (Late st Contact Info) Description 04/28/2023 Orders [place] [address] Malinda Christopher MD [facility] [place] [address] Positive QuantiFERON-TB Gold test; Crohn's disease of small and large intestines with complication; Adalimumab long-term use Social History Tobacco Use Types Packs/Day Years [...] PM EDT TH Visit (TeleHealth) [place] [address] Malinda Christopher MD [facility] [place] [address] documented as of this encounter Goals Goal Patient Goal Type Associated Problems Recent Progress Patient-Stated? Author [facility] Medication Compliance and Understanding Patient Facing Action Plan Lakeisha Matos, [facility] Note: Achieve and maintain control of Crohn's symptoms as assessed by specialist every 3 to 6 months or more documented as of this encounter Results * Miscellaneous Lab request (05/04/2023 12:36 PM EST) Label Request received in lab. 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
--- OUTSIDE RECORDS SUMMARY | 2024-04-14 02:11 | XMS_ITS | Encounter Summary ---
Author Organization [facility] [place] [address] Care Team Providers Care Account Retention Representative Name Role Phone Valarie Phillips MD Primary Care Provider [phone] Reason for Visit * Reason Comments Specialty Refill Management Encounter Details Date Type Department Care Team (Late st Contact Info) Description 05/13/2022 Specialty Pharmacy [place] [address] Leidy Martinez, [facility] Social History Tobacco Use Types Packs/Day [...] encounter Progress Notes * Leidy Martinez - 05/13/2022 10:55 AM EST Clinical Management Plan: Refill Specialty Pharmacy Consultation; Leidy Martinez Comprehensive Medication Management (CMM) Janice Malinda Denzel Ms. Janice Mahoney is a 62 [...] and Drug intolerance: Allergies Allergen Reactions ??? [place] Medication Reconciliation Discrepancies (compared to [facility] med list) No Specialty Pharmacy Refill Questionnaire 05/13/2022 Refill Questionnaire What is the name of the specialty medication you are refilling? Humira Pen 40 mg / 0.4 mL (kit) Are you taking any new medications? No Any new medical condition? No Any new allergies? No Any new side effects that are bothersome? No What date will you need this fill by? 05/23/2022 Multiple values from one day are sorted in reverse-chronological order Adherence: Any missed doses? No Patient understands no changes to current drug regimen were made. Leidy Martinez 05/13/22 10:55 AM documented in this encounter Plan of Treatment Upcoming Encounters Date Type Department Care Team (Late st Contact Info) Description 07/18/2024 1:00 PM EDT TH Visit (TeleHealth) [place] [address] Malinda Christopher MD [facility] [place] [address] documented as of this encounter Goals Goal Patient Goal Type Associated Problems Recent Progress Patient-Stated? Author [facility] Medication Compliance and Understanding Patient Facing Action Plan Lakeisha Matos, [facility] Note: Achieve and maintain control of Crohn's symptoms as assessed by specialist every 3 to 6 months or more documented as of this encounter Visit Diagnoses Not on filedocumented in this encounter Care Teams Account Retention Representative Relationship Specialty Start Date End Date Valarie Phillips MD [address] [place] [address] PCP - General General Internal Medicine 09/06/17 documented as of this encounter
--- OUTSIDE RECORDS SUMMARY | 2024-04-14 02:11 | XMS_ITS | Encounter Summary ---
[place] [address] Care Team Providers Care Unemployment Insurance Director Name Role Phone Valarie Phillips MD Primary Care Provider [phone] Encounter Details Date Type Department Care Team (Late st Contact Info) Description 11/25/2022 [place] [phone] Malinda Christopher MD [facility] [place] [address] Social History Tobacco Use Types Packs/Day Years [...] PM EDT TH Visit (TeleHealth) [place] [phone] Malinda Christopher MD [facility] [place] [address] documented as of this encounter Goals Goal Patient Goal Type Associated Problems Recent Progress Patient-Stated? Author [facility] Medication Compliance and Understanding Patient Facing Action Plan Lakeisha Matos, [facility] Note: Achieve and maintain control of Crohn's symptoms as assessed by specialist every 3 to 6 months or more documented as of this encounter Visit Diagnoses Not on filedocumented in this encounter Care Teams Unemployment Insurance Director Relationship Specialty Start Date End Date Valarie Phillips MD [address] [place] [address] PCP - General General Internal Medicine 09/06/17 documented as of this encounter
--- OUTSIDE RECORDS SUMMARY | 2024-04-14 02:11 | XMS_ITS | Encounter Summary ---
Author Organization [facility] [place] [address] Care Team Providers Care Pill Coater Name Role Phone Valarie Phillips MD Primary Care Provider [phone] Encounter Details Date Type Department Care Team (Latest Contact Info) Description 12/23/2022 8:30 AM EDT TH Visit (TeleHealth) [place] [address] Malinda Christopher MD [facility] [place] [address] Colonic Crohn's with mid small bowel segment [...] * Patient Instructions* Malinda Christopher MD - 12/23/2022 8:30 AM EDT # Continue Humira weekly # With next routine labs in Mar, will also check quant gold, electrolytes including magnesium, adalimumab (Humira) level # MRE in late 2023 or 2023 # Next colonoscopy in 2-3 years, in part depending on results of MRE # Miralax - start 1/2 capful every other night and can titrate to nightly. Substitute the MiraLAX for magnesium # We will have our team reach out to her regarding cost of medications and changing insurance to Medicare at 64 # Follow-up in 6 to 8 months via telehealth documented in this encounter Progress Notes * Malinda Christopher MD - 12/23/2022 8:30 AM EDT [facility] ESTABLISHED PATIENT TELEVISIT Patient Active Problem List Diagnosis Colonic Crohn's with mid small bowel segment Overview Note: Location: Colonic and mid small bowel, Behavior: Inflammatory perianal disease in form of skin tags Symptoms: worsening hemorrhoids April 2017 undergoes excisional hemorrhoidectomy that did not heal 10/02/17: Colonoscopy ([facility]) Large perianal inflamed skin [...] with transmural enhancement, however, no mesenteric inflammation. Tiger 04/2020 - No active Crohn's apart from mild erythema in sigmoid that was inactive on bx. Mild narrowing of the sigmoid colon related to diverticular dx, less likely Crohn's. 3 mm adenomas descending colon. Nl TI. MRE 04/2022 - no enteritis - Incidental mesenteric panniculitis, with slightly increased degree of inflammation and enhancement since 2018. Tiger 12/04/22 - Severe diverticulosis from descending to sigmoid. No active Crohn's disease. Path with inactive colitis. Treatments: Started Humira end of 10/2017, 12/17/17 [place] Humira level 12.8, no antibodies on every two week Humira . Repeat Hardtner Spring 2019 with Ab and low drug [...] INTERVAL HISTORY: Ms Mahoney follows up for Crohn's disease. Wanted to review findings from the colonoscopy. Normal issues are to maintain regular bowel movements. She's feels like she has problems evacuating. She has been using magnesium oxide as well as glycerin suppository. Having a BM every other day. She also asks about taking omeprazole on a daily basis. It was started when her stomach felt raw. Concerned about cost of medication once she goes on Medicare at age 64. Please see Qorus questionnaire results below for further details re current symptoms. [facility] Gastro Pre-Visit Questionnaire 12/20/2022 7:55 AM EDT - Filed by Patient Number One Goal/Concern Coat of care IBD Dx Crohn's Disease Believe Will Benefit from Tx Change No Avg Liquid/Soft Stool per Day 0 Stool Frequency/Day Less stool than normal BM Urgency Last 7 days 0 Abd Pain Severity/Day Mild Blood in Stool No blood seen BM with Blood Alone No Well-being Generally well ED Visit Due to IBD No Hospitalized for IBD No Current Prednisone Use No Current Opioid Use for IBD No Confidence Level to Manage IBD 10 [facility] Ibd Qorus Study Participation 12/20/2022 7:55 AM EDT - Filed by Patient IBD Qorus Study Participant No, I'm not interested in signing up IBD Qorus Provider Questionnaire Did you and your patient discuss your patient???s number one concern today? primary concern discussed How recently have you assessed for mucosal healing with endoscopy/imaging? within the past 6 months How recently have you assessed for [...] Global Assessment (PGA) for this patient today? Mild Do you believe your patient is at high risk of going to the ED for their IBD within the next month?No Review of systems: 14-point review of systems reviewed and negative except as above. Physical exam: No Physical Examination performed during this telemedicine visit Laboratory studies, imaging, and procedures (my review of prior records): Lab Results Component Value Date WBC 6.3 12/04/2022 RBC 4.18 12/04/2022 HGB 13.0 12/04/2022 HCT 38.1 12/04/2022 MCV 91.1 12/04/2022 MCH 31.1 12/04/2022 MCHC 34.1 12/04/2022 PLATELET 295 12/04/2022 RDWCV 12.1 12/04/2022 Lab Results Component Value Date ALT 20 12/04/2022 AST 22 12/04/2022 ALKPHOS 77 12/04/2022 BILITOT 0.5 12/04/2022 Lab Results Component Value Date CRP <3.0 12/04/2022 Lab Results Component Value Date NA 140 05/16/2019 K 4.3 05/16/2019 CL 102 05/16/2019 CO2 27 05/16/2019 BUN 7 (L) 05/16/2019 CREATININE 0.56 (L) 05/16/2019 GLUCOSE 99 05/16/2019 CALCIUM 9.5 05/16/2019 ESTGFR 101 05/16/2019 Lab Results Component Value Date ALT 20 12/04/2022 AST 22 12/04/2022 ALKPHOS 77 12/04/2022 BILITOT 0.5 12/04/2022 BILIDIR 0.1 12/04/2022 ALBUMIN 4.1 12/04/2022 PROT 6.8 12/04/2022 Assessment and Plan: Ms. Mahoney is a 62 y.o. 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 Overall, doing well on Humira. In endoscopic remission. Last MRE in April 2022 with some evidence of more active mesenteric panniculitis. We will check an adalimumab serum concentration with next labs in March. I think it would be prudent to recheck MRE towards the end of 2023 or early 2024 tomake sure that the mesenteric changes are not progressing. Has a history of a positive QuantiFERON gold but a negative chest x-ray and PPD last year. We will recheck QuantiFERON gold with next labs. Suspect that was a false positive last year. Possible that would turn positive again and would think about a T spot or repeat PPD. For constipation and difficulty moving her bowels which is probably related to severe diverticular narrowing in the sigmoid, recommended trying MiraLAX half capful every other night for 5 to 7 days. If no improvement, she will go to half capful nightly and even titrate up to a full cap nightly. If that is really not helpful, she can go back to her regimen with magnesium. We will check electrolytes and magnesium with her next labs in March. As far as cost of medications is concerned, I will reach out to my team to be in touch with her within the coming months. We have some time, she turns 64 last day of 2023. In broad strokes, hopeful that she can stay on her Humira as long as she has good supplemental insurance along with Medicare. We discussed the following recommendations that were copied to the After Visit Summary: # Continue Humira weekly # With next routine labs in Mar, will also check quant gold, electrolytes including magnesium, adalimumab (Humira) level # MRE in late 2023 or 2023 # Next colonoscopy in 2-3 years, in part depending on results of MRE # Miralax - start 1/2 capful every other night and can titrate to nightly. Substitute the MiraLAX for magnesium # We will have our team reach out to her regarding cost of medications and changing insurance to Medicare at 64 # Follow-up in 6 to 8 months via telehealth The patient was located in [place] at the time of their visit. TIME SPENT Time spent during encounter with patient including counselin minutes An additional 10 minutes were spent before and after the visit on this same day in preparation for the appointment, ordering tests and/or prescriptions, communicating with referring providers and completing documentation Approximate total time devoted to this single encounter: 50 L. Tai Christopher MD Anesthesiology Facultythrow out clerk Co-Director, [facility] Section of Gastroenterology [place] [address] documented in this encounter Plan of Treatment Upcoming Encounters Date Type Department Care Team (Late st Contact Info) Description 07/18/2024 1:00 PM EDT TH Visit (TeleHealth) [place] [address] Malinda Christopher MD [facility] [place] [address] documented as of this encounter Goals Goal Patient Goal Type Associated Problems Recent Progress Patient-Stated? Author [facility] Medication Compliance and Understanding Patient Facing Action Plan Lakeisha Matos, [facility] Note: Achieve and maintain control of Crohn's symptoms as assessed by specialist every 3 to 6 months or more documented as of this encounter Results * Adalimumab Quant with Reflex to Antibody (04/22/2023 12:19 PM EST) Adalimumab Level (JULY) 20.8 mcg/mL [facility] Comment: For clinical assessment of response to therapy, adalimumab should be measured at trough. When adalimumab trough concentrations are greater than 8.0 mcg/mL, clinically relevant [id number] are unlikely and reflex testing will not be performed. REFERENCE VALUE Limit of Quantitation = 0.8 mcg/mL ADDITIONAL INFORMATION This test was developed and its performance characteristics determined by [facility] in a manner consistent with CLIA requirements. This test has not been cleared or approved by the U.S. Food and Drug Administration. Test Performed by: [facility] [address] [place] [address] Lace Stripper: Fermin Gordillo M.D. Ph.D.; CLIA# [id number] Blood 04/22/2023 12:1 9 PM EST 04/22/2023 4:07 PM EST Narrative Resulting Agency Comment Spec In Lab L Tai Christopher MD LAB SEND OUT ORDERAB LES [facility] [place] [place] [address] * (ABNORMAL) QuantiFERON-TB Gold (04/22/2023 12:19 PM EST) Quantiferon Nil 0.165 IU/mL [facility] QFT TB Ag1-Nil 0.506 IU/mL [facility] QFT TB Ag2-Nil 0.033 IU/mL [facility] Quantiferon Mitogen-Nil 9.835 IU/mL [facility] Quantiferon-TB Gold Positive(A) Negative [facility] Quantiferon Tb Interp M. tuberculosis infection [...] are suspected alternative tests should be performed. [facility] Blood 04/22/2023 12:1 9 PM EST 04/23/2023 7:22 AM EST Narrative Resulting Agency Comment Spec In Lab L Tia Christopher MD CHEMISTRY ORDERABLES Performing Organization Address [facility] de Phone Number [facility] [place] [address] * Magnesium (04/22/2023 12:19 PM EST) Magnesium 0.99 0.69 - 1.07 mmol/L [facility] Blood 04/22/2023 12:1 9 PM EST 04/22/2023 12:25 PM EST Narrative Resulting Agency Comment Spec In Lab L Tai Christopher MD CHEMISTRY ORDERABLES Performing Organization Address [facility] de Phone Number [facility] [place] [address] * (ABNORMAL) Basic Metabolic Panel (non-fasting) (04/22/2023 12:19 PM EST) Glucose 98 65 - 199 mg/dL [facility] Comment:Diabetes: >=200 mg/d L plus symptoms Blood Urea Nitrogen 15 8 - 18 mg/dL [facility] Creatinine 0.66(L) 0.70 - 1.20 mg/dL [facility] Sodium 142 135 - 145 mmol/L [facility] Potassium 4.3 3.5 - 5.0 mmol/L [facility] Comment: Please note: ??Patients with WBC >100,000 may have falsely elevated Potassium levels. ??For accurate Potassium quantification in these patients send serum separator tube (gold top) for subsequent determinations. ??Contact the Clinical Chemistry Laboratory if there are any questions. Chloride 106 98 - 107 mmol/L [facility] Carbon Dioxide 27 22 - 31 mmol/L [facility] Anion Gap 9 5 - 15 mmol/L [facility] Calcium 9.1 8.5 - 10.5 mg/dL [facility] Est Glomerular Filtration Rate 98 >=60 mL/min/1. 73 m?? [facility] Comment: This patient's estimated GFR [...] Christopher MD CHEMISTRY ORDERABLES Performing Organization Address City/State/[facility] Co de Phone Number [facility] [place] [address] documented in this encounter Visit Diagnoses Diagnosis Colonic Crohn's with mid small bowel segment documented in this encounter Care Teams Pill Coater Relationship Specialty Start Date End Date Valarie Phillips MD [address] [place] [address] PCP - General General Internal Medicine 09/06/17 documented as of this encounter
--- OUTSIDE RECORDS SUMMARY | 2024-04-14 02:11 | XMS_ITS | Encounter Summary ---
Author Organization [facility] Poppy robbins [place] [id number] Care Team Providers Care Booking Supervisor Name Role Phone Valarie Phillips MD Primary Care Provider [phone] Reason for Visit * Auth/Cert (Routine) Specialty Diagnoses / Procedures Referred By Vashti zeng Referred To Contact Diagnoses Crohn's disease Crohn's restaging and surveillance Procedures PRO COLONOSCOPY, DIAGNOSTIC PRO COLONOSCOPY, BIOPSY PRO COLONOSCOPY, REMV LESN, SNARE PRO ANESTH, LWR INTESTINE, NOS COLONOSCOPY, DIAGNOSTIC Malinda Christopher MD [facility] [place] [address] [facility] Referral ID Status Reason Start Date Expiration Date Visits Re quested Visits Authorized [id number] 1 1 Encounter Details Date Type Department Care Team (Latest Contact Info) Description 12/04/2022 1:44 PM EDT - 12/04/2022 5:14 PM EDT Hospital Encounter [place] [address] Malinda Christopher MD [facility] [place] [address] Discharge Disposition: Home Social History Tobacco Use Types Packs/Day Years [...] on file documented as of this encounter Last Filed Vital Signs Vital Sign Reading [...] Mass Index 26.37 12/04/2022 2:39 PM EDT documented in this encounter Medications at Time of Discharge Medication Sig Dispensed Refills Start Date End Date magnesium oxide 400 mg magnesium Capsule Take 450 mg by mouth daily. 06/05/2020 cyanocobalamin, Vitamin B-12, (Vitamin B-12) 250 mcg tablet Take 250 mcg by mouth daily. omeprazole (PriLOSEC) 20 mg Capsule, Delayed Release(E.C.) Take 1 capsule by mouth daily. 90 capsule 3 02/22/2021 adalimumab (Humira,CF, Pen) 40 mg/0.4 mL Pen Injector Kit Inject the contents of one pen (40 mg) subcutaneously once every 7 days. 2 kit 3 11/26/2022 07/22/2023 Flovent HFA 44 mcg/actuation HFA Aerosol Inhaler INHALE TWO PUFFS BY MOUTH TWICE A DAY WITH SPACER 01/01/2022 02/02/2024 Doxylamine Succinate 25 mg Tablet Take 12.5 mg by mouth daily. 09/14/2019 12/23/2022 ondansetron (Zofran) 4 mg Tablet Take 1-2 tablets by mouth every 8 hours as needed for nausea before and after MRE 6 tablet 02/03/2022 12/23/2022 nystatin-triamcinol one (MYCOLOG II) Cream Apply topically 2 times daily. Apply a tiny amount as thin layer to perianal area twice daily x2 weeks then stop 30 g 02/06/2020 12/23/2022 PROAIR HFA 90 mcg/actuation HFA Aerosol Inhaler Inhale 2 Inhalation into the lungs every 4 hours as needed. 01/26/2018 07/28/2023 acetaminophen (TYLENOL) 325 mg Tablet Take 325 mg by mouth 2 times daily as needed for Pain. 02/02/2024 documented as of this encounter Progress Notes * Malinda Christopher MD - 12/04/2022 5:14 PM EDT Dear Ms. Mahoney, It was nice to see at the time of your colonoscopy. You may have seen these results. We can talk about them more specifically during your upcoming visit. In short, they look very reassuring. Your Crohn's disease continues to be in complete remission. Based on the polyp taken off in 2020 and your history of Crohn's involving the colon, I would recommend repeat colonoscopy in approximately 2 years. Looking forward to catching up at her upcoming appointment. Sincerely, Omar Christopher MD Film Bookerf[employer] picker Co-Director, [facility] Section of Gastroenterology [place] [address] documented in this encounter H&P Notes * Malinda Christopher MD - 12/04/2022 2:31 PM EDT Gastroenterology and Hepatology Pre-Procedure History and Physical Exam Procedure: Colonoscopy: Indication: Crohn's restaging and surveillance Patient Active Problem List Diagnosis Code Anal pain K62.89 Clotting disorder D68.9 Diverticulitis of large intestine without perforation or abscess without bleeding K57.32 Gallstones K80.20 Colonic Crohn's with mid small bowel segment K50.119 EXAM: HEENT: Airway examined, oropharynx clear Mallampati Score: II (soft palate, uvula, fauces visible) LUNGS: Clear to auscultation HEART: Regular rate and rhythm, normal S1, S2 ABDOMEN: Normal bowel sounds, soft, non tender, non distended, A/P Proceed with the planned endoscopic procedure. ASA 2 - Patient with mild systemic disease with no functional limitations Sedation Plan: moderate (conscious sedation) Risks and benefits of the procedure explained to the patient. Consent signed. documented in this encounter Plan of Treatment Upcoming Encounters Date Type Department Care Team (Late st Contact Info) Description 07/18/2024 1:00 PM EDT TH Visit (TeleHealth) [place] [address] Malinda Christopher MD [facility] [place] [address] documented as of this encounter Goals Goal Patient Goal Type Associated Problems Recent Progress Patient-Stated? Author [facility] Medication Compliance and Understanding Patient Facing Action Plan Lakeisha Matos, [facility] Note: Achieve and maintain control of Crohn's symptoms as assessed by specialist every 3 to 6 months or more documented as of this encounter Procedures Procedure Name Priority Date/Time Associated Diagnosis Comments SPECIMEN TO PATHOLOGY Routine 12/04/2022 4:18 PM EDT SPECIMEN TO PATHOLOGY Routine 12/04/2022 4:18 PM EDT SURGICAL PATHOLOGY REPORT Routine 12/04/2022 4:00 PM EDT Colonoscopy, Biopsy ([id number]) 12/04/2022 3:28 PM EDT Crohn's disease of small and large intestines with complication COLONOSCOPY Routine 12/04/2022 3:20 PM EDT documented in this encounter Results * Specimen to Pathology (12/04/2022 4:18 PM EDT) AP Specimen 12/04/2022 4:18 PM EDT 12/04/2022 4:18 PM EDT Narrative [facility] - 12/04/2022 4:18 PM EDT Specimen requisition ordered. ??Separate Pathology report to follow Malinda Christopher MD PATHOLOGY/CYTOLOGY O RDERABLES [facility] [place] [address] * Specimen to Pathology (12/04/2022 4:18 PM EDT) AP Specimen 12/04/2022 4:18 PM EDT 12/04/2022 4:18 PM EDT Narrative [facility] - 12/04/2022 4:18 PM EDT Specimen requisition ordered. ??Separate Pathology report to follow L Tai Christopher MD PATHOLOGY/CYTOLOGY O [place] [facility] [place] [address] * Surgical Pathology Report (12/04/2022 4:00 PM EDT) Final Diagnosis [id number] ? Location: 4T; EA10; A The signing pathologist has (i) examined the relevant preparation(s) for the specimen(s) and (ii) rendered or confirmed the diagnosis(es). . ?Surgical Pathology DIAGNOSIS A - Cecal bx's, biopsy (Multiple): Colonic mucosa within normal limits. Inactive well-healed chronic colitis cannot be ruled out. B - Sigmoid colon bx's 23cm- 18cm, biopsy (Multiple): Inactive chronic colitis. No dysplasia is seen. CR-PX Electronically signed by: ?Abrahan REHMAN, Madelaine Verified: ??12/13/2022 23:20 ??Pathologist Performed at: ??-[facility] Dept. of Pathology, [place] [address] Trailer Truck Driver: Ramiro Sun MD, FCAP, ??CLIA Certificate: [id number] SPECIMEN(S) SUBMITTED A - cecal bx's, biopsy (Multiple) B - sigmoid colon bx's 23cm- 18cm, biopsy (Multiple) CLINICAL INFORMATION 62 year-old history of Crohn's surveillance SPECIMEN PROCESSING A - Labeled/Fixative : Cecal BX's, formalin. Quantity/Size: Five, ranging from 0.2-0.4 cm. Tissue Description: Soft, cooper-pink tissues. Sections/Process ing: Submitted in toto ??in 1 cassette labeled A1. B - Labeled/Fixative : Sigmoid colon BX's 23 cm-18 cm, formalin. Quantity/Size: Multiple, ranging from 0.2-0.4 cm. Tissue Description: Soft, cooper-brown tissues. Sections/Process ing: Submitted in toto ??in 2 cassettes labeled B1-B2. ??nrl 12/13/2022 11:20 PM EDT [facility] GI Biopsy 12/04/2022 4:00 PM EDT 12/04/2022 4:00 PM EDT GI Biopsy 12/04/2022 4:00 PM EDT 12/04/2022 4:00 PM EDT L Tai Christopher MD PATHOLOGY/CYTOLOGY O RDERABLES Performing Organization Address City/State/[facility] Co de Phone Number [facility] [place] [id number] [facility] [place] [address] * COLONOSCOPY (12/04/2022 3:20 PM EDT) COLONOSCOPY [facility] Endoscopy ___ Procedure Date: 12/04/2022 3:20 PM ? Patient Name: Janice Mahoney ? Date of : 1960 ? Age: 62 ? Order #: [id number] ? Instrument Name: [id number] ? ___ Procedure: ? Colonoscopy Indications: ? High risk colon cancer ? surveillance: Crohn's disease Patient Profile: ? This is a 62 year old female. This ? patient has ileocolonic Crohn's ? disease with perianal involvement, ? is taking adalimumab and is ? asymptomatic. Providers: ? Omar Christopher MD, Jitendra Marquez ? Michelle, RN, Etta Burnham Referring : ?Valarie Phillips MD Medicines: ? Midazolam 5.5 [...] preparation was evaluated ? using the BBPS ([place] Bowel ? Preparation Scale) with scores of: [...] Phillips MD GENERAL SURGICAL ORD ERABLES [employer] documented in this encounter Visit Diagnoses Not on filedocumented in this encounter Administered Medications Inactive Administered Medications - up to 3 most recent administrations Medication Order MAR Action Action Date Dose Rate Site lactated ringers infusion 100 mL/hr, Intravenous, CONTINUOUS, Starting on Perla 12/04/22 at 1500, Until Perla 12/04/22 at 1914, Endoscopy (Day of Procedure) New Bag 12/04/2022 2:49 PM EDT 100 mL/hr 100 mL/hr documented in this encounter Active and Recently Administered Medications Times are shown in EDT. Continuous Medication Order 12/02/2022 12/03/2022 12/04/2022 lactated ringers infusion 100 mL/hr, Intravenous, CONTINUOUS, Starting on Perla 12/04/22 at 1500, Until Perla 12/04/22 at 1914, Endoscopy (Day of Procedure) 1449 (New Bag - Prov ider: Gardenia Baxter RN) PRN Medication Order 12/02/2022 12/03/2022 12/04/2022 fentaNYL (pf) (50 mcg/mL) multi-dose injection (CANCELED) PRN, Starting on Perla 12/04/22 at 1531, Until Eprla 12/04/22 at 1914, Intra-Operative (Intra-Procedure), Routine 1531 (Given - Provid er: Jitendra Martinez RN)1536 (Given - Provider: Jitendra Martinez RN)1545 (Given - Provider: Jitendra Martinez RN)1548 (Given - Provider: Jitendra Martinez RN) midazolam (pf) (Versed) (1 mg/mL) multi-dose injection (CANCELED) PRN, Starting on Perla 12/04/22 at 1531, Until Perla 12/04/22 at 1914, Intra-Operative (Intra-Procedure), Routine 1531 (Given - Provid er: Jitendra Martinez RN)1532 (Given - Provider: Jitendra Martinez RN)1536 (Given - Provider: Jitendra Martinez RN)1540 (Given - Provider: Jitendra Martinez RN)1545 (Given - Provider: Jitendra Martinez RN)1548 (Given - Provider: Jitendra Martinez RN) documented in this encounter Care Teams Booking Supervisor Relationship Specialty Start Date End Date Valarie Phillips MD [address] [place] [address] PCP - General General Internal Medicine 09/06/17 documented as of this encounter
--- OUTSIDE RECORDS SUMMARY | 2024-04-14 02:11 | XMS_ITS | Encounter Summary ---
Author Organization [facility] Address [facility] [place] [address] Care Team Providers Care Network Support Technician Name Role Phone Karey Robert APRN Primary Care Provider [phone] Encounter Details Date Type Department Care Team (Latest Contact Info) Description 05/04/2023 Travel Social History Tobacco Use Types Packs/Day [...] PM EDT TH Visit (TeleHealth) [place] [address] Malinda Christopher MD [facility] [place] [address] documented as of this encounter Goals Goal Patient Goal Type Associated Problems Recent Progress Patient-Stated? Author [facility] Medication Compliance and Understanding Patient Facing Action Plan Lakeisha Matos, [facility] Note: Achieve and maintain control of Crohn's symptoms as assessed by specialist every 3 to 6 months or more documented as of this encounter Visit Diagnoses Not on filedocumented in this encounter Care Teams Network Support Technician Relationship Specialty Start Date End Date Karey Robert APRN [address] [place] [address] PCP - General Geriatric Medicine 12/29/22 documented as of this encounter
--- OUTSIDE RECORDS SUMMARY | 2024-04-14 02:11 | XMS_ITS | Encounter Summary ---
[place] [address] Care Team Providers Care Video Production Intern Name Role Phone Valarie Phillips MD Primary Care Provider [phone] Reason for Referral * Diagnostic Test (Routine) - Closed Specialty Diagnoses / Procedures Referred By Vashti zeng Referred To Contact Radiology Diagnoses Crohn's disease of small and large intestines with complication Procedures MRI Enterography wwo Contrast Malinad Garnica MD [facility] [place] [address] [place] [address] Referral ID Status Reason Start Date Expiration Date V isits Requested Visits Authorized [id number] Closed Specialty Service Requested 02/03/2022 08/04/2023 1 1 Encounter Details Date Type Department Care Team (Late st Contact Info) Description 02/03/2022 10:00 AM EST Office [place] [phone] Malinda Garnica MD [facility] [place] [address] Crohn's disease of small and large intestines with complication; Colonic Crohn's with mid small bowel segment [...] Sign Reading Time Taken Comments Blood Pressure 123/67 02/03/2022 10:30 AM EST Pulse 83 02/03/2022 10:30 AM EST Temperature - - Respiratory Rate - - Oxygen Saturation - - Inhaled Oxygen Concentration - - Weight 62.7 kg (138 lb 3.2 oz) 02/03/2022 10:30 AM EST Height - - Body Mass Index 26.99 10/02/2020 10:53 AM EDT documented in this encounter Patient Instructions * Patient Instructions* Malinda Garnica MD - 02/03/2022 10:00 AM EST # Continue Humira weekly # Labs today - routine to compare to early Dec and also check adalimumab level # Schedule MRE to be done within ~3-6 weeks # Ondansetron (Zofran) 1-2 tabs as needed before and after MRE for nausea # Repeat colonoscopy within the next ~6-9 mos # Follow-up in ~10 months after colonoscopy, BUT, if symptoms are worsening or if MRE shows active Crohn's, should schedule documented in this encounter Progress Notes * Malinda Garnica MD - 02/03/2022 10:00 AM EST IBD CENTER ESTABLISHED PATIENT VISIT Patient Active Problem List Diagnosis ??? Colonic Crohn's with mid small bowel segment Overview Note: ?? Location: Colonic and mid small bowel, Behavior: Inflammatory perianal disease in form of skin tags ?? Symptoms: worsening hemorrhoids April 2017 undergoes excisional hemorrhoidectomy that did not heal ?? 10/02/17: Colonoscopy ([facility]) Large perianal inflamed skin tags ??found on perianal exam. - The descending colon, splenic flexure, transverse colon, hepatic flexure, ascending colon, cecum, appendiceal orifice and terminal ileum are normal. ?? Diverticulosis associated with stricturing in the sigmoid colon and in the descending colon. There was possible subtle inflammation in the rectum and sigmoid. PATH: Sigmoid and rectum: Chronic active colitis with multiple noncaseating granulomas that also involve ??submucosa ?? 10/29/17 MRE: Approximate 10 cm area of distal descending to sigmoid colon involved with active dz. Second focal segment involving mid small bowel with likely Crohn's disease which appears less severe than the colonic segment ?? MRE 07/2019 - Persistent circumferential wall thickening of 10 cm descending/sigmoid colon with increased transmural and adjacent mesenteric inflammation. New circumferential wall thickening of a 5cm segment of distal ileum with transmural enhancement, however, no mesenteric inflammation. ?? [place] 04/2020 - No active Crohn's apart from mild erythema in sigmoid that was inactive on bx. Mild narrowing of the sigmoid colon related to diverticular dx, less likely Crohn's. 3 mm adenomas descending colon. Nl TI. Treatments: ?? Started Humira end of 10/2017, 12/17/17 [place] Humira level 12.8, no antibodies on every two week Humira . Repeat [place] Spring 2019 with Ab and low drug level. Repeat Prometheus with level 20 and no Ab. Health Maintenance: ?? 10/19/17 TB - Quant gold neg ?? 10/19/17 Hep B negative ?? 01/2018 Shingrix first dose. Second Shingrix July 2018. ?? 01/2018 Pneumococcal (presumed Pneumovax) ?? PCV 2018 ?? Moderna x3 plus booster - last dose 04/2021 ??? Anal pain ??? Clotting disorder Overview Note: Protein C deficiency ??? Diverticulitis of large intestine without perforation or abscess without bleeding ??? Gallstones CURRENT IBD MEDS: Humira 40 mg every week INTERVAL HISTORY: ?? Ms. Mahoney follows up for Crohn's ileocolitis. ?? Pain in the LLQ that started one week ago. It was worse with eating. Pain came on in the middle of the night. She had chili for lunch and broccoli for dinner - so blamed that initially. But, symptoms persisted. Stopped her typical walking exercise routine, stuck to soft diet, no nausea or vomiting. No sick contacts. ?? Symptoms feel similar to those that she had that responded in the past to steroids and Humira ?? She gets similar episodes lasting about one day that occur once per month ?? Typically takes magnesium most days - moves bowels 2-3 times every other day for loose stool. ?? No blood, no mucus. No questionnaires on file. IBD Qorus Provider Questionnaire Did you and your patient discuss your patient???s number one concern today? Yes How recently have you assessed for mucosal healing with endoscopy/imaging? More than 12 months and less than 3 years How recently have you assessed for mucosal healing with fecal calprotectin? Never performed / I don???t know At the most recent assessment, [...] to assess for mucosal healing with endoscopy/imaging? Within the next 6 months When do you next plan to [...] decide based on next objective disease assessment (endoscopy, imaging, labs) What is your Provider Global Assessment (PGA) for this patient today? Mild Do you believe your patient is at high risk of going to the ED for their IBD within the next month?No Review of systems: 14-point review of systems reviewed and negative except as above. PHYSICAL EXAMINATION: Patient Vitals for the past 24 hrs: Pulse BP 02/03/22 1030 83 123/67 Wt Readings from Last 3 Encounters: 02/03/22 62.7 kg (138 lb 3.2 oz) 10/02/20 62.2 kg (137 lb 3.2 oz) 04/26/20 61.2 kg (135 lb) There is no height or weight on file to calculate BMI. GEN: Healthy-appearing in no acute distress. Appears stated age. Cooperative and answers questions appropriately. Laboratory studies, imaging, and procedures (my review of prior records): Labs reviewed from 12/10/21 - [facility] LFTS, CRP, and CBC all wnl Adalimumab 09/2020 - .8 Assessment and Plan: Ms. Mahoney is a 61 y.o. patient with colonic and mid ileal Crohn's disease. She has chronic constipation for which she takes magnesium. More pertinent today is that she has had 1 week of left lower quadrant pain that felt similar to symptoms prior to induction with corticosteroids and Humira. She hasabout once per month 1 day of the symptoms, but these lasted for 1 complete week. She feels better now. With her most recent colonoscopy, albeit nearly 2 years ago, and also recent labs without any signsof active Crohn's disease, I am somewhat suspicious of possible diverticular disease as a cause of her left lower quadrant discomfort. However, she has had active Crohn's disease in that same distribution in the past, so this is also a clear consideration. Discussed obtaining an MR enterography within the next 3 to 6 weeks. For symptoms, she will do whatshe has been doing, which is to maintain a low residue diet and scale back her physical activity during times that she is symptomatic. She will call us for worsening abdominal pain, fevers over 100, new symptoms, like nausea or vomiting. She can continue to take her Humira weekly. Did not advise any new medications today. She will get routine labs today to compare to those drawn in December and we will also obtain an adalimumab drug concentration. Also advised obtaining a colonoscopy within the next approximately 6 months given duration of Crohn's disease, involvement of the colon, and tubular adenoma within the sigmoid colon at her last exam in 2020. We discussed the following recommendations that were copied to the After Visit Summary: # Continue Humira weekly # Labs today - routine to compare to early Dec and also check adalimumab level # Schedule MRE to be done within ~3-6 weeks # Ondansetron (Zofran) 1-2 tabs as needed before and after MRE for nausea # Repeat colonoscopy within the next ~6-9 mos # Follow-up in ~10 months after colonoscopy, BUT, if symptoms are worsening or if MRE shows active Crohn's, should schedule Omar Garnica MD Director Microbiologyinsurance claim auditor Co-Director, [facility] Section of G[place]enter[place] [address] documented in this encounter Miscellaneous Notes * Addendum Note - Malinda Garnica MD - 02/03/2022 10:00 AM ESTAddended by: Malinda GARNICA on: 02/03/2022 01:07 PM Modules accepted: Orders documented in this encounter Plan of Treatment Upcoming Encounters Date Type Department Care Team (Late st Contact Info) Description 07/18/2024 1:00 PM EDT TH Visit (TeleHealth) [place] [phone] Malinda Garnica MD [facility] [place] [address] Scheduled Orders Name Type Priority Associated Diagnoses Orde r Schedule ENDOSCOPY CASE REQUEST: COLONOSCOPY, DIAGNOSTIC Procedures Routine Crohn's disease of small and large intestines with complication Ordered: 02/03/2022 documented as of this encounter Goals Goal Patient Goal Type Associated Problems Recent Progress Patient-Stated? Author [facility] Medication Compliance and Understanding Patient Facing Action Plan Lakeisha Matos, [facility] Note: Achieve and maintain control of Crohn's symptoms as assessed by specialist every 3 to 6 months or more documented as of this encounter Procedures Procedure Name Priority Date/Time Associated Diagnosis Comments HC PCH ADALIMUMAB QUANT Routine 02/03/2022 11:39 AM EST Crohn's disease of small and large intestines with complication HC VENIPUNCTURE Routine 02/03/2022 11:39 AM EST Colonic Crohn's with mid small bowel segment HEMOGRAM Routine 02/03/2022 11:39 AM EST Colonic Crohn's with mid small bowel segment DIFFERENTIAL, AUTOMATED Routine 02/03/2022 11:39 AM EST Colonic Crohn's with mid small bowel segment HC CBC,PLT & AUTO DIFF Routine 02/03/2022 11:39 AM EST Colonic Crohn's with mid small bowel segment HEPATIC FUNCTION PANEL Routine 02/03/2022 11:39 AM EST Colonic Crohn's with mid small bowel segment documented in this encounter Results * MRI Enterography wwo Contrast (04/22/2022 7:10 PM EST) Anatomical Region Laterality Modality Abdomen Magnetic Resonan ce Impressions 04/23/2022 11:52 AM EST 1. ??Stable mild active colitis of the sigmoid colon. 2. ??No small bowel enteritis. 3. ??Incidental mesenteric panniculitis, with slightly increased degree of inflammation and enhancement since 2018. 4. ??Mild biliary ductal dilatation is likely secondary to prior cholecystectomy. Consider correlation with LFTs. I have personally reviewed the image(s) and the resident's interpretation and agree with the findings, Clare Dominguez MD at 04/23/2022 11:52 AM Thank you for letting us participate in the care of this patient. ??If you are a health care provider and have any questions regarding this report, please contact the number below. ??For patients who have questions please contact the health healthcare project manager that requested your imaging first. ? Electronically signed by: Clare Dominguez MD, [facility] ([phone]), at 04/23/2022 11:52 AM Narrative 04/23/2022 11:52 AM EST EXAMINATION: MRI ENTEROGRAPHY WWO CONTRAST CLINICAL HISTORY: 61 yo with colonic and mid ileal Crohn's with recent LLQ pain. Eval for active disease TECHNIQUE: ??MRI of the abdomen and pelvis was performed with images obtained prior to and following the intravenous administration of 12ml of Dotarem. ??0.5mg glucagon was also administered. ??Breeza was administered as an oral contrast. COMPARISON: MRE 07/08/2019 FINDINGS: GI tract: Incidental duodenal diverticulum. No small bowel dilatation or persistent wall thickening. Scattered loops of small bowel are under distended on certain sequences. CISS series demonstrates normal peristalsis. There is no mucosal hyperenhancement, mural edema, engorgement of the vasa recta. Stable mild circumferential wall thickening of an approximately 10 cm segment of the sigmoid colon which is unchanged in distribution. There is subtle increased T2 signal in the wall. There is mild mucosal hyperenhancement. No engorgement of the vasa recta. Disease location: Sigmoid colon (series 9 images [id number]) # diseased segments: ??1 Length of involvement: 10 cm Imaging appearance: Inflammation: Mild Stricture: None Penetrating disease: None Change from prior: Stable appearance of the colonic segment. Peritoneum/mesentery: There is no free intraperitoneal fluid or loculated collection. There is a subtle, encapsulated, ovoid region of increased T2 signal within the root of the mesentery in the left upper quadrant. Several mildly enlarged lymph nodes are present within this, and there is a perivascular halo. Findings have been present on multiple prior MRIs dating back to 10/2017, with stable size of the lymph nodes within this region. Liver: Normal signal, no lesions. Widely patent hepatic and portal veins. Bile ducts: Mild central intrahepatic biliary ductal dilatation. Stable ectasia of the common bile duct to 10 mm. Gallbladder: Absent. Pancreas: Normal. Spleen: Normal. Adrenals: Normal. Kidneys: Symmetric size and enhancement. No hydronephrosis. Stable subcentimeter right lower pole simple cyst. Lymph nodes: No lymphadenopathy. Reproductive structures: Absent uterus. No adnexal masses. 14 mm unilocular T1 and T2 hyperintense, nonenhancing lesion in the left perineal region most consistent with a Bartholin gland cyst. Osseous structures: No marrow signal abnormality. Procedure Note Clare Dominguez MD - 04/23/2022 EXAMINATION: MRI ENTEROGRAPHY WWO CONTRAST CLINICAL HISTORY: 61 yo with colonic and mid ileal Crohn's with recent LLQpain. Eval for active disease TECHNIQUE: MRI of the abdomen and pelvis was performed with imagesobtained prior to and following the intravenous administration of 12ml of Dotarem.0.5mg glucagon was also administered. Breeza was administered as an oralcontrast. COMPARISON: MRE 07/08/2019 FINDINGS: GI tract: Incidental duodenal diverticulum. No small bowel dilatation or persistent wall thickening. Scattered loops of small bowel are underdistended on certain sequences. CISS series demonstrates normal peristalsis. Thereis no mucosal hyperenhancement, mural edema, engorgement of the vasa recta. Stable mild circumferential wall thickening of an approximately 10 cmsegment of the sigmoid colon which is unchanged in distribution. There is subtleincreased T2 signal in the wall. There is mild mucosal hyperenhancement. Noengorgement of the vasa recta. Disease location: Sigmoid colon (series 9 images 17-23) # diseased segments: 1 Length of involvement: 10 cm Imaging appearance: Inflammation: Mild Stricture: None Penetrating disease: None Change from prior: Stable appearance of the colonic segment. Peritoneum/mesentery: There is no free intraperitoneal fluid orloculated collection. There is a subtle, encapsulated, ovoid region of increased I0vpohuf within the root of the mesentery in the left upper quadrant. Severalmildly enlarged lymph nodes are present within this, and there is a perivascularhalo. Findings have been present on multiple prior MRIs dating back to 10/2017,with stable size of the lymph nodes within this region. Liver: Normal signal, no lesions. Widely patent hepatic and portalveins. Bile ducts: Mild central intrahepatic biliary ductal dilatation. Stableectasia of the common bile duct to 10 mm. Gallbladder: Absent. Pancreas: Normal. Spleen: Normal. Adrenals: Normal. Kidneys: Symmetric size and enhancement. No hydronephrosis. Stablesubcentimeter right lower pole simple cyst. Lymph nodes: No lymphadenopathy. Reproductive structures: Absent uterus. No adnexal masses. 14 mmunilocular T1 and T2 hyperintense, nonenhancing lesion in the left perineal regionmost consistent with a Bartholin gland cyst. Osseous structures: No marrow signal abnormality. IMPRESSION 1. Stable mild active colitis of the sigmoid colon. 2. No small bowel enteritis. 3. Incidental mesenteric panniculitis, with slightly increased degreeof inflammation and enhancement since 2018. 4. Mild biliary ductal dilatation is likely secondary to priorcholecystectomy. Consider correlation with LFTs. I have personally reviewed the image(s) and the resident's interpretationand agree with the findings, Clare Dominguez MD at 04/23/2022 11:52 AM Thank you for letting us participate in the care of this patient. If youare a health care provider and have any questions regarding this report,please contact the number below. For patients who have questions please contactthe health healthcare project manager that requested your imaging first. Electronically signed by: Clare Dominguez MD, [facility]([phone]), at 04/23/2022 11:52 AM Malinda Garnica MD IMG MRI ORDERABLES * Differential, Automated (02/03/2022 11:39 AM EST) Neutrophil % 47.3 % [facility] Neutrophil Absolute 3.12 1.70 - 6.10 x10(3)/[facility] Lymph % 37.7 % [facility] Lymphocytes Abs 2.5 0.9 - 3.2 x10(3)/[facility] Monocyte % 9.6 % [facility] Monocyte Abs 0.6 0.3 - 0.9 x10(3)/[facility] Eos % 4.4 % [facility] Eosinophils Abs 0.3 0.0 - 0.4 x10(3)/[facility] Basophil % 0.8 % [facility] Baso Absolute 0.0 0.0 - 0.1 x10(3)/[facility] Immature Gran % 0.20 % [facility] Comment: Immature granulocytes(IG's)percentage and absolute count will include metamyelocytes, myelocytes, and promyelocytes. Blood smears from CBCs yielding IG's will be scanned manually for concordance. If this scan disagrees with the automated IG or if promyelocytes are noted, a manual differential will be performed. Immature Gran Absolute 0.01 0.00 - 0.04 x10(3)/[facility] Blood 02/03/2022 11:3 9 AM EST 02/03/2022 11:50 AM EST Narrative Resulting Agency Comment Spec In Lab Malinda Garnica MD HEMATOLOGY ORDERABLE S [facility] [place] [address] * Hemogram (02/03/2022 11:39 AM EST) [facility] White Blood Cell 6.6 4.0 - 9.5 x10(3)/[facility] Red Blood Cell 4.47 4.00 - 5.21 x10(6)/[facility] Hemoglobin 13.4 11.7 - 15.5 g/dL [facility] Hematocrit 40.0 35.7 - 45.8 % [facility] Mean Cell Volume 89.5 82.6 - 94.4 fL [facility] Mean Cell Hemoglobin 30.0 27.1 - 32.0 pg [facility] Mean Cell Hemoglobin Concentration 33.5 31.7 - 35.0 g/dL [facility] Platelet 278 145 - 357 x10(3)/[facility] RDW Standard Deviation 38.4 37.0 - 46.0 [facility] RDW coefficient of variation 11.8 11.5 - 14.1 % [facility] Mean Platelet Volume 8.8 7.6 - 12.9 fL [facility] NRBC% auto 0.0 % [facility] NRBC Absolute 0.000 0.000 - 0.000 x10(3)/[facility] Blood 02/03/2022 11:3 9 AM EST 02/03/2022 11:50 AM EST Narrative Resulting Agency Comment Spec In Lab L Tai Garnica MD HEMATOLOGY ORDERABLE S [facility] [place] [address] * Hepatic Function Panel (02/03/2022 11:39 AM EST) [facility] Protein, Total 7.2 6.1 - 8.0 g/dL [facility] Albumin 4.4 3.2 - 5.2 g/dL [facility] Aspartate Aminotransferase 18 0 - 30 unit/L [facility] Alanine Aminotransferase 21 0 - 30 unit/L [facility] Alkaline Phosphatase 81 35 - 105 unit/L [facility] Bilirubin, Total 0.3 0.2 - 1.3 mg/dL [facility] Bilirubin, Direct 0.1 0.0 - 0.3 mg/dL [facility] Blood 02/03/2022 11:3 9 AM EST 02/03/2022 11:50 AM EST Narrative Resulting Agency Comment Spec In Lab L Tai Garnica MD CHEMISTRY ORDERABLES Performing Organization Address City/[facility] Co de Phone Number [facility] [place] [address] * CRP, acute inflammation (02/03/2022 11:39 AM EST) C-Reactive Protein <3.0 <=4.9 mg/L [facility] Blood 02/03/2022 11:3 9 AM EST 02/03/2022 11:50 AM EST Narrative Resulting Agency Comment Spec In Lab L Tai Garnica MD CHEMISTRY ORDERABLES Performing Organization Address [facility] Co de Phone Number [facility] [place] [address] * Adalimumab Quant with Reflex to Antibody (02/03/2022 11:39 AM EST) Adalimumab Level (JULY) 21.2 mcg/mL [facility] Comment: For clinical assessment of response to therapy, adalimumab should be measured at trough. When adalimumab trough concentrations are greater than 8.0 mcg/mL, clinically relevant [id number] are unlikely and reflex testing will not be performed. REFERENCE VALUE Limit of Quantitation = 0.8 mcg/mL ADDITIONAL INFORMATION This test was developed and its performance characteristics determined by [facility] in a manner consistent with CLIA requirements. This test has not been cleared or approved by the U.S. Food and Drug Administration. Test Performed by: [facility] [address] [place] [address] [employer] Crew Member: Fermin Gordillo M.D. Ph.D.; CLIA# [id number] Blood 02/03/2022 11:3 9 AM EST 02/03/2022 2:23 PM EST Narrative Resulting Agency Comment Spec In Lab L Tai Garnica MD LAB SEND OUT ORDERAB LES [facility] [place] [address] documented in this encounter Visit Diagnoses Diagnosis Crohn's disease of small and large intestines with complication Colonic Crohn's with mid small bowel segment Crohn's disease of small and large intestines with complication documented in this encounter Care Teams Video Production Intern Relationship Specialty Start Date End Date Valarie Phillips MD [address] [place] [address] PCP - General General Internal Medicine 09/06/17 documented as of this encounter
--- OUTSIDE RECORDS SUMMARY | 2024-04-14 02:11 | XMS_ITS | Encounter Summary ---
Author Organization [facility] [place] [address] Care Team Providers Care Director Epidemiology Name Role Phone Karey Robert APRN Primary Care Provider [phone] Encounter Details Date Type Department Care Team (Latest Contact Info) Description 04/22/2023 Travel Social History Tobacco Use Types Packs/Day [...] PM EDT TH Visit (TeleHealth) [place] [address] Malinda Christopher MD [facility] [place] [address] documented as of this encounter Goals Goal Patient Goal Type Associated Problems Recent Progress Patient-Stated? Author [facility] Medication Compliance and Understanding Patient Facing Action Plan Lakeisha Matos, [facility] Note: Achieve and maintain control of Crohn's symptoms as assessed by specialist every 3 to 6 months or more documented as of this encounter Visit Diagnoses Not on filedocumented in this encounter Care Teams Director Epidemiology Relationship Specialty Start Date End Date Karey Robert APRN [address] [place] [address] PCP - General Geriatric Medicine 12/29/22 documented as of this encounter
--- OUTSIDE RECORDS SUMMARY | 2024-04-14 02:11 | XMS_ITS | Encounter Summary ---
[place] [address] Care Team Providers Care Yarn Spooler Name Role Phone Valarie Phillips MD Primary Care Provider [phone] Reason for Visit * Reason Comments Prior Authorization Humira PEN 40mg/0.4m l PNKT Encounter Details Date Type Department Care Team (Late st Contact Info) Description 12/03/2021 Specialty [place] [id number] Mel Cross, RESAW TAILER Social History Tobacco Use Types Packs/Day Years [...] Progress Notes * Mel Cross CPHT - 12/03/2021 1:07 PM EDT [facility], No Prior Authorization Required Patient: Janice Mahoney Patient : 1960 Patient Address: [address] [place] [address] (home) Medication Name: ADALIMUMAB 40 MG/0.4 ML SUBCUTANEOUS PEN KIT Medication ID: [id number] Patient Location: [facility] [place] [facility] 4L Patient Location Comment: Medication Strength Frequency Requested: Humira PEN 40mg/0.4ml PNKT. Inject 0.4ml (40mg) subcutaneously once every 7 days. 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 REF# [id number] None Copay: $0 Copay assistance: N/A Copay assistance comment: Pharmacy staff will be reaching out to the patient to inform them of [facility]. If applicable, a pharmacist will speak with the patient to offer our specialty pharmacy services and to arrange delivery of their medication. Mel Cross CPHT 12/03/21 1:11 PM documented in this encounter Plan of Treatment Upcoming Encounters Date Type Department Care Team (Late st Contact Info) Description 07/18/2024 1:00 PM EDT TH Visit (TeleHealth) [place] [address] Malinda Garnica MD [facility] [place] [address] documented as of this encounter Goals Goal Patient Goal Type Associated Problems Recent Progress Patient-Stated? Author Home Medication Compliance and Understanding Patient Facing Action Plan Lakeisha Matos, [facility] Note: Achieve and maintain control of Crohn's symptoms as assessed by specialist every 3 to 6 months or more documented as of this encounter Visit Diagnoses Not on filedocumented in this encounter Care Teams Yarn Spooler Relationship Specialty Start Date End Date Valarie Phillips MD [address] [place] [address] PCP - General General Internal Medicine 09/06/17 documented as of this encounter
--- OUTSIDE RECORDS SUMMARY | 2024-04-14 02:11 | XMS_ITS | Encounter Summary ---
Author Organization [facility] [place] [address] Care Team Providers Care Rnfa Name Role Phone Valarie Phillips MD Primary Care Provider [phone] Reason for Visit * Reason Comments Specialty Refill Management Humira 40mg/ 0.4ml pnkt Encounter Details Date Type Department Care Team (Late st Contact Info) Description 07/07/2022 Specialty [place] [phone] Silverio Mcnamara, ORNAMENTAL BRICK INSTALLER Social History Tobacco Use Types Packs/Day Years [...] encounter Progress Notes * Silverio Mcnamara - 07/07/2022 2:34 PM EDT Clinical Management Plan: Refill Specialty Pharmacy Consultation; Silverio Mcnamara Comprehensive Medication Management (CMM) Janice Mahoney is a 62 y.o. (1960) female who was contacted in regard to a specialty medication refill reminder. Contact made with patient regarding humira. A review of the medication therapy was performed. The medication was refilled as scheduled, and all medication related questions and concerns were addressed. The specialty pharmacy staff will follow up with the patient 5-7 days priorto next refill. Was a change made to the Care Plan: No Allergies and Drug intolerance: Allergies Allergen Reactions ??? [place] Medication Reconciliation Discrepancies (compared to [facility] med list) No Specialty Pharmacy Refill Questionnaire 07/07/2022 Refill Questionnaire What is the name of the specialty medication you are refilling? Humira 40mg/0.4ml pnkt Are you taking any new medications? No Any new medical condition? No Any new allergies? No Any new side effects that are bothersome? No What date will you need this fill by? 07/18/2022 Adherence: Any missed doses? No Patient understands no changes to current drug regimen were made. Silverio Mcnamara 07/07/22 2:35 PM documented in this encounter Plan of Treatment Upcoming Encounters Date Type Department Care Team (Late st Contact Info) Description 07/18/2024 1:00 PM EDT TH Visit (TeleHealth) [place] [address] Malinda Christopher MD [facility] [place] [address] documented as of this encounter Goals Goal Patient Goal Type Associated Problems Recent Progress Patient-Stated? Author [facility] Medication Compliance and Understanding Patient Facing Action Plan Lakeisha Matos, [facility] Note: Achieve and maintain control of Crohn's symptoms as assessed by specialist every 3 to 6 months or more documented as of this encounter Visit Diagnoses Not on filedocumented in this encounter Care Teams Rnfa Relationship Specialty Start Date End Date Valarie Phillips MD [address] [place] [address] PCP - General General Internal Medicine 09/06/17 documented as of this encounter
--- OUTSIDE RECORDS SUMMARY | 2024-04-14 02:11 | XMS_ITS | Encounter Summary ---
Author Organization [facility] [place] [address] Care Team Providers Care Bench Loom Weaver Name Role Phone Karey Robert APRN Primary Care Provider [phone] Encounter Details Date Type Department Care Team (Latest Contact Info) Description 05/04/2023 12:55 PM EST Laboratory Appointment Lab [address]L [place] [address] Positive QuantiFERON-TB Gold test; Crohn's disease of [...] PM EDT TH Visit (TeleHealth) [place] [address] Malinda Christopher MD [facility] [place] [address] documented as of this encounter Goals Goal Patient Goal Type Associated Problems Recent Progress Patient-Stated? 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 Blood Venous Draw / Unknown 05/04/2023 12:36 PM EST 05/04/2023 1:28 PM EST L Tai Christopher MD LAB SEND OUT ORDERAB LES [facility] [place] [address] * Miscellaneous Lab request (05/04/2023 12:36 PM EST) Label Request received in lab. 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
--- OUTSIDE RECORDS SUMMARY | 2024-04-14 02:11 | XMS_ITS | Encounter Summary ---
[place] [address] Care Team Providers Care Staff Respiratory Therapist Name Role Phone Valarie Phillips MD Primary Care Provider [phone] Encounter Details Date Type Department Care Team (Latest Contact Info) Description 04/21/2022 Travel Social History Tobacco Use Types Packs/Day [...] PM EDT TH Visit (TeleHealth) [place] [address] Malinda Christopher MD [facility] [place] [address] documented as of this encounter Goals Goal Patient Goal Type Associated Problems Recent Progress Patient-Stated? Author [facility] Medication Compliance and Understanding Patient Facing Action Plan Lakeisha Matos, [facility] Note: Achieve and maintain control of Crohn's symptoms as assessed by specialist every 3 to 6 months or more documented as of this encounter Visit Diagnoses Not on filedocumented in this encounter Care Teams Staff Respiratory Therapist Relationship Specialty Start Date End Date Valarie [place] [address] [place] [address] PCP - General General Internal Medicine 09/06/17 documented as of this encounter
--- OUTSIDE RECORDS SUMMARY | 2024-04-14 02:11 | XMS_ITS | Encounter Summary ---
[place] [address] Care Team Providers Care Arborer Name Role Phone Valarie Phillips MD Primary Care Provider [phone] Encounter Details Date Type Department Care Team (Late st Contact Info) Description 11/24/2022 [place] [address] Malinda Christopher MD [facility] [place] [address] Social History Tobacco Use Types Packs/Day Years [...] PM EDT TH Visit (TeleHealth) [place] [address] Malinda Christopher MD [facility] [place] [address] documented as of this encounter Goals Goal Patient Goal Type Associated Problems Recent Progress Patient-Stated? Author [facility] Medication Compliance and Understanding Patient Facing Action Plan Lakeisha Matos, [facility] Note: Achieve and maintain control of Crohn's symptoms as assessed by specialist every 3 to 6 months or more documented as of this encounter Visit Diagnoses Not on filedocumented in this encounter Care Teams Arborer Relationship Specialty Start Date End Date Valarie Phillips MD [address] [place] [address] PCP - General General Internal Medicine 09/06/17 documented as of this encounter
--- OUTSIDE RECORDS SUMMARY | 2024-04-14 02:11 | XMS_ITS | Encounter Summary ---
Author Organization [facility] [place] [address] Care Team Providers Care Closing Supervisor Name Role Phone Karey Robert APRN Primary Care Provider [phone] Reason for Visit * Reason Comments Specialty Refill Management Humira (2 Pe n) 40mg/0.4ml Pnkt Encounter Details Date Type Department Care Team (Late st Contact Info) Description 07/09/2023 Specialty [place] [address] Silverio Mcnamara, [facility] Social History Tobacco Use Types [...] Progress Notes * Frannie Araya RPH - 07/09/2023 10:46 AM EDT Clinical Management Plan: Refill Specialty Pharmacy Consultation; Frannie Araya RPH Comprehensive Medication Management (CMM) Janice Malinda Denzel [...] medication be held: No Assessment and Recommendations: Allergies and Drug intolerance: Allergies Allergen Reactions [place] Medication Reconciliation Discrepancies (compared to [facility] med list) -None Specialty Pharmacy Refill Questionnaire More data exists 07/09/2023 Refill Questionnaire What is the name of the specialty medication you are refilling? Humira (2 Pen) 40mg/0.4ml Pnkt Are you taking any new medications? No Any new medical condition? No Any new allergies? No Any missed doses since your last fill? 1-2 Any new side effects that are bothersome? No What date will you need this fill by? 07/23/2023 Adherence: Specialty Med Adherence Patient Demonstrates Understanding of Importance of Adherence: Yes Educational Information or Adherence Tools Provided: No Patient Reported X Missed Doses in the Last Month: 0 If yes, why?: mail delay Other reason for gaps in therapy: was about 3-4 days late to inject due to mail delay Provider-Estimated Medication Adherence Level: 90-100% Adherence Tools Used: directed education Pt understands no changes to current drug regimen were made at the appointment and that [facility] is providing recommendations (summary located at top of note) for provider review and follow up. Frannie Araya RPH 07/09/23 1:34 PM documented in this encounter Plan of Treatment Upcoming Encounters Date Type Department Care Team (Late st Contact Info) Description 07/18/2024 1:00 PM EDT TH Visit (TeleHealth) [place] [address] Malinda Christopher MD [facility] [place] [address] documented as of this encounter Goals Goal Patient Goal Type Associated Problems Recent Progress Patient-Stated? Author [facility] Medication Compliance and Understanding Patient Facing Action Plan Lakeisha Matos [facility] Note: Achieve and maintain control of Crohn's symptoms as assessed by specialist every 3 to 6 months or more documented as of this encounter Visit Diagnoses Not on filedocumented in this encounter Care Teams Closing Supervisor Relationship Specialty Start Date End Date Karey [place] [address] [place] [address] PCP - General Geriatric Medicine 12/29/22 documented as of this encounter
--- OUTSIDE RECORDS SUMMARY | 2024-04-14 02:11 | XMS_ITS | Encounter Summary ---
Author Organization [facility] [place] [address] Care Team Providers Care Loan Reviewer Name Role Phone Valarie Phillips MD Primary Care Provider [phone] Encounter Details Date Type Department Care Team (Late Contact Info) Description 11/24/2022 Orders [place] [phone] Malinda Christopher MD [facility] [place] [address] Crohn's disease of small and large intestines [...] PM EDT TH Visit (TeleHealth) [place] [address] Malinda Christopher MD [facility] [place] [address] documented as of this encounter Goals Goal Patient Goal Type Associated Problems Recent Progress Patient-Stated? Author [facility] Medication Compliance and Understanding Patient Facing Action Plan Lakeisha Matos, [facility] Note: Achieve and maintain control of Crohn's symptoms as assessed by specialist every 3 to 6 months or more documented as of this encounter Visit Diagnoses Diagnosis Crohn's disease of small and large intestines with complication Encounter for monitoring of adalimumab therapy documented in this encounter Care Teams Loan Reviewer Relationship Specialty Start Date End Date Valarie Phillips MD [address] [place] [address] PCP - General General Internal Medicine 09/06/17 documented as of this encounter
--- OUTSIDE RECORDS SUMMARY | 2024-04-14 02:11 | XMS_ITS | Encounter Summary ---
[place] [address] Care Team Providers Care Milk Processing Worker Name Role Phone Valarie Phillips MD Primary Care Provider [phone] Encounter Details Date Type Department Care Team (Late st Contact Info) Description 07/04/2021 Refill [place] [address] Malinda Christopher MD [facility] [place] [place] [address] Social History Tobacco Use Types Packs/Day Years [...] PM EDT TH Visit (TeleHealth[place] [address] Malinda Christopher MD [facility] [place] [place] [address] documented as of this encounter Goals Goal Patient Goal Type Associated Problems Recent Progress Patient-Stated? Author [facility] Medication Compliance and Understanding Patient Facing Action Plan Lakeisha Matos, [facility] Note: Achieve and maintain control of Crohn's symptoms as assessed by specialist every 3 to 6 months or more documented as of this encounter Visit Diagnoses Not on filedocumented in this encounter Care Teams Milk Processing Worker Relationship Specialty Start Date End Date Valarie Phillips MD [address] [place] [address] PCP - General General Internal Medicine 09/06/17 documented as of this encounter
--- OUTSIDE RECORDS SUMMARY | 2024-04-14 02:11 | XMS_ITS | Encounter Summary ---
Author Organization [facility] [address] Care Team Providers Care Farm Technician Name Role Phone Valarie Phillips MD Primary Care Provider [phone] Reason for Visit * Reason Comments Medication Management Encounter Details Date Type Department Care Team (Late st Contact Info) Description 09/29/2022 Specialty Pharmacy Pharmacy at [facility] [place] [address] Jennie Barkley [facility] Social History Tobacco Use Types Packs/Day Years [...] Progress Notes * Jennie Barkley RPH - 09/29/2022 4:47 PM EDT Clinical Management Plan: Refill Specialty Pharmacy Consultation; Jennie Barkley [facility] Comprehensive Medication Management (CMM) Janice Mahoney Ms. [...] Allergies and Drug intolerance: Allergies Allergen Reactions [place] Medication Reconciliation Discrepancies (compared to [facility] med list) No Specialty Pharmacy Refill Questionnaire More data exists 09/29/2022 Refill Questionnaire What is the name of the specialty medication you are refilling? Humira Are you taking any new medications? No Any new medical condition? No Any new allergies? No Any new side effects that are bothersome? No What date will you need this fill by? 10/10/2022 Adherence: Any missed doses? No Patient understands no changes to current drug regimen were made. Jennie Barkley RPH 09/29/22 4:48 PM documented in this encounter Plan of Treatment Upcoming Encounters Date Type Department Care Team (Late st Contact Info) Description 07/18/2024 1:00 PM EDT TH Visit (TeleHealth) [place] [address] Malinda Christopher MD [facility] [place] [address] documented as of this encounter Goals Goal Patient Goal Type Associated Problems Recent Progress Patient-Stated? Author [facility] Medication Compliance and Understanding Patient Facing Action Plan Lakeisha Matos, [facility] Note: Achieve and maintain control of Crohn's symptoms as assessed by specialist every 3 to 6 months or more documented as of this encounter Visit Diagnoses Not on filedocumented in this encounter Care Teams Farm Technician Relationship Specialty Start Date End Date Valarie Phillips MD [address] [place] [address] PCP - General General Internal Medicine 09/06/17 documented as of this encounter
--- OUTSIDE RECORDS SUMMARY | 2024-04-14 02:11 | XMS_ITS | Encounter Summary ---
[place] [address] Care Team Providers Care Policy Manager Name Role Phone Valarie Phillips MD Primary Care Provider [phone] Reason for Visit * Reason Comments Specialty Pharmacy Review Humira 40mg/0. 4ml pen Encounter Details Date Type Department Care Team (Late st Contact Info) Description 02/03/2022 Specialty Pharmacy [place] [phone] Frannie Meyer Social History Tobacco Use Types Packs/Day Years [...] of this encounter Progress Notes * Frannie Meyer - 02/03/2022 11:59 PM EST The [facility] has completed a benefits investigation for Janice Mahoney to review theireligibility to fill at [facility]. Per patient's medication list they are prescribed Humira 40mg/0.4ml pen and the medication is currently filled through the [facility] documented in this encounter Plan of Treatment Upcoming Encounters Date Type Department Care Team (Late st Contact Info) Description 07/18/2024 1:00 PM EDT TH Visit (TeleHealth) [place] [address] Malinda Christopher MD [facility] [place] [address] documented as of this encounter Goals Goal [...] on filedocumented in this encounter Care Teams Policy Manager Relationship Specialty Start Date End Date Valarie Phillips MD [address] [address] PCP - General General Internal Medicine 09/06/17 documented as of this encounter
--- OUTSIDE RECORDS SUMMARY | 2024-04-14 02:11 | XMS_ITS | Encounter Summary ---
Author Organization [facility] [place] [address] Care Team Providers Care Full Service Supervisor Name Role Phone Valarie Phillips MD Primary Care Provider [phone] Reason for Visit * Reason Comments Specialty Refill Management Encounter Details Date Type Department Care Team (Late st Contact Info) Description 09/19/2021 Specialty [place] [address] Aminata Duffy CPHT Social History Tobacco Use [...] Progress Notes * Aminata Duffy CPHT - 09/19/2021 9:21 AM EDT Clinical Management Plan: Refill Specialty Pharmacy Consultation; Aminata Duffy CPHT Comprehensive Medication Management (CMM) Janice Mahoney Ms. Janice Mahoney is a 61 y.o. [...] and Drug intolerance: Allergies Allergen Reactions ??? [place] Medication Reconciliation Discrepancies (compared to [facility] med list) No Specialty Pharmacy Refill Questionnaire Refill Questionnaire 09/19/2021 What is the name of the specialty medication you are refilling? Humira Pen 40mg/0.4ml Are you taking any new medications? No Any new medical condition? No Any new allergies? No Any new side effects that are bothersome? No What date will you need this fill by? 09/27/2021 Adherence: Any missed doses? No Patient understands no changes to current drug regimen were made. Aminata Duffy CPHT 09/19/21 9:22 AM documented in this encounter Plan of Treatment Upcoming Encounters Date Type Department Care Team (Late st Contact Info) Description 07/18/2024 1:00 PM EDT TH Visit (TeleHealth) [place] [address] Malinda Christopher MD [facility] [place] [address] documented as of this encounter Goals Goal Patient Goal Type Associated Problems Recent Progress Patient-Stated? Author [facility] Medication Compliance and Understanding Patient Facing Action Plan Lakeisha Matos, [facility] Note: Achieve and maintain control of Crohn's symptoms as assessed by specialist every 3 to 6 months or more documented as of this encounter Visit Diagnoses Not on filedocumented in this encounter Care Teams Full Service Supervisor Relationship Specialty Start Date End Date Valarie Phillips MD [address] [place] [address] PCP - General General Internal Medicine 09/06/17 documented as of this encounter
--- OUTSIDE RECORDS SUMMARY | 2024-04-14 02:11 | XMS_ITS | Encounter Summary ---
Author Organization [facility] [place] [address] Care Team Providers Care Senior Vice President Name Role Phone Valarie Phillips MD Primary Care Provider [phone] Encounter Details Date Type Department Care Team (Late st Contact Info) Description 04/30/2022 Telephone [place] [address] Keiko June Malinda Social History Tobacco Use Types Packs/Day Years [...] encounter Miscellaneous Notes * Telephone Encounter - Keiko June - 04/30/2022 12:39 PM EST Janice Mahoney [id number] Diagnosis/Indication: Crohn's restaging and surveillance Please review patient chart to confirm if previous Endoscopy procedure was performed within system. If yes, take note of Anesthesia type used. If previous procedure found, and with MAC/propofol Anesthesia support was used, schedule this procedure with Anesthesia and skip the Anesthesia portion of questions. If not performed within system, not performed at all, or performed with IVCS, ask Anesthesia questions. SCHEDULING QUESTIONS (ask all patient these questions) 1. Have you ever had a/an Colonoscopy before? Yes: Date 04/26/20 If yes, did you have any problems with the procedure (such as waking up during the procedure, pain or difficulties afterwards, etc.)? No What type of sedation was used: IV Conscious Sedation 2. Do you take any blood thinners or have you been diagnosed with a bleeding disorder that increases your risk of bleeding with procedures? No 3. Do you have a Pacemaker or Defibrillator device? If yes, send pool message to Cardiology with patient information and date or procedure. No 4. Are you a diabetic? If yes, call PCP/managing provider to discuss use of prep and any questions or concerns related to. No 5. Do you take any iron supplements or vitamins that contain iron? No 6. Do you have a preference regarding the gender of your provider? No ANESTHESIA QUESTIONS (YES to any question, please book with Anesthesia support) 7. Have you ever been diagnosed with Pulmonary Hypertension and/or Congential Heart Disease? No 8. Have you been diagnosed with A-Fib (atrial fibrillation) that is NOT being well controled with medications? No 9. Have you ever had an allergic or adverse reaction to Fentanyl or Versed? No 10. Have you had a problem with sedation or anesthesia? (Waking up during procedure, extreme confusion after, etc.) No 11. Do you have a diagnosis of Obstructive Sleep Apnea that requires the use of a c-pap machine? No 12. Do you use an oxygen tank at home? No 13. Do you use a rescue inhaler more than twice per day? (COPD, severe asthma) No 14. Do you experience breathing problems when you lay flat for a period of time? No 15. Do you take prescription narcotic pain medications, including suboxone or methodone? No SCHEDULING CONFIRMATIONS: Please note any and all parts of your conversation with the patient here. 16. We offer all new patients an opportunity to have an appointment with one of our associate care providers to learn more about your upcoming procedure, ask questions and get answers. These appointments are offered via telehealth. Would you be interested in scheduling this appointment? (Only ask if NEW referral patient; skip this question if [facility] provider ordered the procedure.) No 17. Is there any other information or concerns you would like to us to share with your care team inrelation to your upcoming scheduled procedure? No 18. You must have a responsible republican who will drive you to your procedure, stay on campus for the entire duration of your procedure, and drive you home from your procedure. Who will likely be your medical driver for the procedure? Estimated body mass index is 26.99 kg/m?? as calculated from the following: Height as of 10/02/20: 152.4 cm (5'). Weight as of 02/03/22: 62.7 kg (138 lb 3.2 oz). Age:62 y.o. documented in this encounter Plan of Treatment Upcoming Encounters Date Type Department Care Team (Late st Contact Info) Description 07/18/2024 1:00 PM EDT TH Visit (TeleHealth) [place] [address] Malinda Christopher MD [facility] [place] [address] documented as of this encounter Goals Goal Patient Goal Type Associated Problems Recent Progress Patient-Stated? Author [facility] Medication Compliance and Understanding Patient Facing Action Plan Lakeisha Matos, [facility] Note: Achieve and maintain control of Crohn's symptoms as assessed by specialist every 3 to 6 months or more documented as of this encounter Visit Diagnoses Not on filedocumented in this encounter Care Teams Senior Vice President Relationship Specialty Start Date End Date Valarie Phillips MD [address] [place] [address] PCP - General General Internal Medicine 09/06/17 documented as of this encounter
--- OUTSIDE RECORDS SUMMARY | 2024-04-14 02:11 | XMS_ITS | Encounter Summary ---
[place] [address] Care Team Providers Care Direct Marketing Specialist Name Role Phone Valarie Phillips MD Primary Care Provider [phone] Encounter Details Date Type Department Care Team (Late st Contact Info) Description 12/03/2021 Refill [place] [phone] Malinda Christopher MD [facility] [place] [address] Social History Tobacco Use Types Packs/Day Years [...] PM EDT TH Visit (TeleHealth) [place] [phone] Malinda Christopher MD [facility] [place] [address] documented as of this encounter Goals Goal Patient Goal Type Associated Problems Recent Progress Patient-Stated? Author [facility] Medication Compliance and Understanding Patient Facing Action Plan Lakeisha Matos, [facility] Note: Achieve and maintain control of Crohn's symptoms as assessed by specialist every 3 to 6 months or more documented as of this encounter Visit Diagnoses Not on filedocumented in this encounter Care Teams Direct Marketing Specialist Relationship Specialty Start Date End Date Valarie Phillips MD [address] [place] [address] PCP - General General Internal Medicine 09/06/17 documented as of this encounter
--- OUTSIDE RECORDS SUMMARY | 2024-04-14 02:11 | XMS_ITS | Encounter Summary ---
[place] [address] Care Team Providers Care Artificial Flowers Dyer Name Role Phone Valarie Phillips MD Primary Care Provider [phone] Reason for Visit * Reason Comments Specialty Refill Management Encounter Details Date Type Department Care Team (Late st Contact Info) Description 04/11/2022 Specialty [place] [address] Josselin Robison [facility] Social History Tobacco Use Types Packs/Day Years [...] of this encounter Progress Notes * Josselin Dupont [facility] - 04/11/2022 3:44 PM EST Clinical Management Plan: Refill Specialty Pharmacy Consultation; Josselin Dupont [facility] Comprehensive Medication Management (CMM) Janice Petty Denzel [...] change made to the Care Plan: no Assessment and Recommendations: Medication Management Type of Medication Management: chronic disease management, targeted medication review Referred By: provider Recipient: beneficiary Provider: plan sponsor pharmacist Visit Type: [facility] Follow-up Time Spent: 1-15 min Method of Contact: by telephone Cognitive Ability: good Cognitive Impairment Status Verified this Year: no Allergies and Drug intolerance: Allergies Allergen Reactions ??? [place] Medication Reconciliation Discrepancies (compared to [facility] med list) -She took a short course of Augmentin and prednisone last week Specialty Pharmacy Refill Questionnaire Refill Questionnaire 04/11/2022 What is the name of the specialty medication you are refilling? Humira Are you taking any new medications? Yes Please explain took short course of augmentin and prednisone for infection Any new medical condition? No Any new allergies? No Any missed doses since your last fill? 1-2 Any new side effects that are bothersome? No What date will you need this fill by? 04/25/2022 Adherence: Specialty Med Adherence Patient Demonstrates Understanding of Importance of Adherence: Yes Educational Information or Adherence Tools Provided: No How many doses does patient have remaining at home?: 1 Patient Reported X Missed Doses in the Last Month: 1 If >0, reason for missed doses: instructed by provider to hold or take differently Provider-Estimated Medication Adherence Level: 90-100% Adherence Tools Used: directed education Pt understands no changes to current drug regimen were made at the appointment and that [facility] is providing recommendations (summary located at top of note) for provider review and follow up. Josselin Robison [facility] 04/11/22 3:47 PM documented in this encounter Plan of Treatment Upcoming Encounters Date Type Department Care Team (Late st Contact Info) Description 07/18/2024 1:00 PM EDT TH Visit (TeleHealth) [place] [address] Malinda Christopher MD [facility] [place] [address] documented as of this encounter Goals Goal Patient Goal Type Associated Problems Recent Progress Patient-Stated? Author [facility] Medication Compliance and Understanding Patient Facing Action Plan Lakeisha Matos, [facility] Note: Achieve and maintain control of Crohn's symptoms as assessed by specialist every 3 to 6 months or more documented as of this encounter Visit Diagnoses Not on filedocumented in this encounter Care Teams Artificial Flowers Dyer Relationship Specialty Start Date End Date Valarie Phillips MD [address] [place] [address] PCP - General General Internal Medicine 09/06/17 documented as of this encounter
--- OUTSIDE RECORDS SUMMARY | 2024-04-14 02:11 | XMS_ITS | Encounter Summary ---
Author Organization [facility] [address]ppy ro[address] [place] [id number] Care Team Providers Care Delinquent Tax Collector Name Role Phone Valarie Phillips MD Primary Care Provider [phone] Reason for Visit * Auth/Cert (Routine) Specialty Diagnoses / Procedures Referred By Vashti zeng Referred To Contact Diagnoses Crohn's disease Crohn's restaging and surveillance Procedures PRO COLONOSCOPY, DIAGNOSTIC PRO COLONOSCOPY, BIOPSY PRO COLONOSCOPY, REMV LESN, SNARE PRO ANESTH, LWR INTESTINE, NOS COLONOSCOPY, DIAGNOSTIC Malinda Christopher MD [facility] [place] [address] [facility] Referral ID Status Reason Start Date Expiration Date Visits Re quested Visits Authorized [id number] 1 1 Encounter Details Date Type Department Care Team (Late st Contact Info) Description 12/04/2022 3:15 PM EDT - 12/04/2022 4:15 PM EDT Surgery [place] [address] Malinda Christopher MD [facility] [address] COLONOSCOPY FLEXIBLE, WITH BX (WRVU 3.56) Social History Tobacco Use Types Packs/Day Years [...] Sign Reading Time Taken Comments Blood Pressure 124/66 12/04/2022 4:15 PM EDT Pulse 80 12/04/2022 4:15 PM EDT Temperature 36.4 ??C (97.5 ??F) 12/04/2022 2:39 PM ED T Respiratory Rate 12 12/04/2022 4:15 PM EDT Oxygen Saturation 98% 12/04/2022 4:15 PM EDT Inhaled Oxygen Concentration - - [...] her upcoming appointment. Sincerely, Omar Christopher MD Provider Contracting Consultantswing manager Co-Director, [facility] Section of [place]astroenter[place] [address] documented in this encounter H&P Notes * [...] PM EDT TH Visit (TeleHealth) [place] [address] Malinda Christopher MD [facility] [place] [address] documented as of this encounter Goals Goal Patient Goal Type Associated Problems Recent Progress Patient-Stated? Author [employer] Medication Compliance and Understanding Patient Facing Action Plan Lakeisha Matos, [facility] Note: Achieve and maintain control of Crohn's symptoms as assessed by specialist every 3 to 6 months or more documented as of this encounter Procedures Procedure Name Priority Date/Time Associated Diagnosis Comments SPECIMEN TO PATHOLOGY Routine 12/04/2022 4:18 PM EDT SPECIMEN TO PATHOLOGY Routine 12/04/2022 4:18 PM EDT SURGICAL PATHOLOGY REPORT Routine 12/04/2022 4:00 PM EDT Colonoscopy, Biopsy ([id number]) 12/04/2022 3:28 PM EDT Crohn's disease of small and large intestines with complication COLONOSCOPY Routine 12/04/2022 3:20 PM EDT documented in this encounter Results * Specimen to Pathology (12/04/2022 4:18 PM EDT) AP Specimen 12/04/2022 4:18 PM EDT 12/04/2022 4:18 PM EDT Narrative [facility] - 12/04/2022 4:18 PM EDT Specimen requisition ordered. ??Separate Pathology report to follow Malinda Christopher MD PATHOLOGY/CYTOLOGY O RDERABLES [facility] [place] [address] * Specimen to Pathology (12/04/2022 4:18 PM EDT) AP Specimen 12/04/2022 4:18 PM EDT 12/04/2022 4:18 PM EDT Narrative [facility] - 12/04/2022 4:18 PM EDT Specimen requisition ordered. ??Separate Pathology report to follow L Tai Christopher MD PATHOLOGY/CYTOLOGY O RDERABLES [facility] [address] * Surgical Pathology Report (12/04/2022 4:00 PM EDT) Final Diagnosis [id number] ? Location: 4T; EA10; A The signing [...] Madelaine Verified: ??12/13/2022 23:20 ??Pathologist Performed at: ??-[facility] Dept. of Pathology, [place] [address] Roll Setter: Ramiro Sun MD, FCAP, ??CLIA Certificate: [id number] SPECIMEN(S) SUBMITTED A - cecal bx's, biopsy [...] labeled B1-B2. ??nrl 12/13/2022 11:20 PM EDT [facility] GI Biopsy 12/04/2022 4:00 PM EDT 12/04/2022 4:00 PM EDT GI Biopsy 12/04/2022 4:00 PM EDT 12/04/2022 4:00 PM EDT L Tai Christopher MD PATHOLOGY/CYTOLOGY Jaquelin LOYA [facility] [address] [place] [address] * COLONOSCOPY (12/04/2022 3:20 PM EDT) COLONOSCOPY [facility] Endoscopy ___ Procedure Date: 12/04/2022 3:20 PM ? Patient Name: Janice Mahoney ? Date of : 1960 ? Age: 62 ? Order #: [id number] ? Instrument Name: [id number] ? ___ Procedure: ? Colonoscopy Indications: ? High risk colon cancer ? surveillance: Crohn's disease Patient Profile: ? This is a 62 year old female. This ? patient has ileocolonic Crohn's ? disease with perianal involvement, ? is taking adalimumab and is ? asymptomatic. Providers: ? Omar Christopher MD, Jitendra Marquez ? Michelle, RN, Etta Carranza MD: ?Valarie Phillips MD Medicines: ? Midazolam [...] preparation was evaluated ? using the BBPS ([place] Bowel ? Preparation Scale) with scores of: [...] PROVATION documented in this encounter Visit Diagnoses Diagnosis Crohn's disease of small and large intestines with complication documented in this encounter Administered Medications Inactive Administered Medications - up to 3 most recent administrations Medication Order MAR Action Action Date Dose Rate Site fentaNYL (pf) (50 mcg/mL) multi-dose injection PRN, Starting on Thu12/04/22 at 1531, Until Perla 12/04/22 at 1914, Intra-Operative (Intra-Procedure), Routine Given 12/04/2022 3:48 PM EDT 25 mcg Right Arm Given 12/04/2022 3:45 PM EDT 50 mcg Ri ght Arm Given 12/04/2022 3:36 PM EDT 50 mcg Ri ght Arm lactated ringers infusion 100 mL/hr, Intravenous, CONTINUOUS, Starting on Perla 12/04/22 at 1500, Until Perla 12/04/22 at 1914, Endoscopy (Day of Procedure) New Bag 12/04/2022 2:49 PM EDT 100 mL/hr 100 mL/hr midazolam (pf) (Versed) (1 mg/mL) multi-dose injection PRN, Starting on Perla 12/04/22 at 1531, Until Perla 12/04/22 at 1914, Intra-Operative (Intra-Procedure), Routine Given 12/04/2022 3:48 PM EDT 0.5 mg Right Arm Given 12/04/2022 3:45 PM EDT 1 mg Ri ght Arm Given 12/04/2022 3:40 PM EDT 1 mg Ri ght Arm documented in this encounter Active and Recently [...] RN) documented in this encounter Care Teams Delinquent Tax Collector Relationship Specialty Start Date End Date Valarie Phillips MD [address] [place] [address] PCP - General General Internal Medicine 09/06/17 documented as of this encounter
--- OUTSIDE RECORDS SUMMARY | 2024-04-14 02:11 | XMS_ITS | Encounter Summary ---
Author Organization [facility] [address] Care Team Providers Care Creeler Name Role Phone Valarie Phillips MD Primary Care Provider [phone] Reason for Visit * Reason Comments Medication Management Encounter Details Date Type Department Care Team (Late st Contact Info) Description 07/04/2021 Specialty Pharmacy Pharmacy at [facility] [place] [address] Dimitri Barlow V [facility] Social History Tobacco Use Types [...] as of this encounter Progress Notes * Dimitri Barlow V [facility] - 07/04/2021 11:56 AM EDT Clinical Management Plan: Refill Specialty Pharmacy Consultation; Dimitri Andrewh [facility] Comprehensive Medication Management (CMM) Janice Petty Denzel [...] and Drug intolerance: Allergies Allergen Reactions ??? [place] Medication Reconciliation Discrepancies (compared to [facility] med list) No Specialty Pharmacy Refill Questionnaire Refill Questionnaire 07/04/2021 What is the name of the specialty medication you are refilling? Humira Are you taking any new medications? No Any new medical condition? No Any new allergies? No Any new side effects that are bothersome? No What date will you need this fill by? 07/12/2021 Adherence: Any missed doses? No Patient understands no changes to current drug regimen were made. Dimitri Barlow RPH 07/04/21 11:58 AM documented in this encounter Plan of Treatment Upcoming Encounters Date Type Department Care Team (Late st Contact Info) Description 07/18/2024 1:00 PM EDT TH Visit (TeleHealth) [place] [address] Malinda Christopher MD [facility] [place] [address] documented as of this encounter Goals Goal Patient Goal Type Associated Problems Recent Progress Patient-Stated? Author [facility] Medication Compliance and Understanding Patient Facing Action Plan Lakeisha Matos [facility] Note: Achieve and maintain control of Crohn's symptoms as assessed by specialist every 3 to 6 months or more documented as of this encounter Visit Diagnoses Not on filedocumented in this encounter Care Teams Creeler Relationship Specialty Start Date End Date Valarie Phillips MD [address] [place] [address] PCP - General General Internal Medicine 09/06/17 documented as of this encounter
--- OUTSIDE RECORDS SUMMARY | 2024-04-14 02:11 | XMS_ITS | Encounter Summary ---
[place] [address] Care Team Providers Care Instrumentation Technologist Name Role Phone Valarie Phillips MD Primary Care Provider [phone] Reason for Referral * Diagnostic Test (Routine) - Closed Specialty Diagnoses / Procedures Referred By Vashti zeng Referred To Contact Radiology Diagnoses Crohn's disease of small and large intestines with complication Procedures MRI Enterography wwMalinda Muñoz MD [facility] [address] [place] [address] Referral ID Status Reason Start Date Expiration Date V isits Requested Visits Authorized [id number] Closed Specialty Service Requested 02/03/2022 08/04/2023 1 1 Reason for Visit * Diagnostic Test (Routine) - Closed Specialty Diagnoses / Procedures Referred By Vashti zeng Referred To Contact Radiology Diagnoses Crohn's disease of small and large intestines with complication Procedures MRI Enterography wwMalinda Muñoz MD [facility] [place] [address] [place] [address] Referral ID Status Reason Start Date Expiration Date V isits Requested Visits Authorized [id number] Closed Specialty Service Requested 02/03/2022 08/04/2023 1 1 Encounter Details Date Type Department Care Team (Latest Contact Info) Description 04/22/2022 2:50 PM EST - 04/22/2022 11:59 PM EST Hospital Encounter MRI at [facility] [place] [id number] Malinda Christopher MD [facility] [place] [address] Crohn's disease of small and large intestines with complication Discharge Disposition: Home Social History Tobacco Use [...] on file documented as of this encounter Medications at Time of Discharge Medication Sig Dispensed Refills Start Date End Date magnesium oxide 400 mg magnesium Capsule Take 450 mg by mouth daily. 06/05/2020 cyanocobalamin, Vitamin B-12, (Vitamin B-12) 250 mcg tablet Take 250 mcg by mouth daily. omeprazole (PriLOSEC) 20 mg Capsule, Delayed Release(E.C.) Take 1 capsule by mouth daily. 90 capsule 3 02/22/2021 Flovent HFA 44 mcg/actuation HFA Aerosol Inhaler INHALE TWO PUFFS BY MOUTH TWICE A DAY WITH SPACER 01/01/2022 02/02/2024 Doxylamine Succinate 25 mg Tablet Take 12.5 mg by mouth daily. 09/14/2019 12/23/2022 ondansetron (Zofran) 4 mg Tablet Take 1-2 tablets by mouth every 8 hours as needed for nausea before and after MRE 6 tablet 02/03/2022 12/23/2022 adalimumab (Humira,CF, Pen) 40 mg/0.4 mL Pen Injector Kit Inject the contents of one pen (40 mg) subcutaneously once every 7 days. 6 kit 1 12/03/2021 05/13/2022 nystatin-triamcinol one (MYCOLOG II) Cream Apply topically [...] Pain. 02/02/2024 documented as of this encounter Plan of Treatment Upcoming Encounters Date Type Department Care Team (Late st Contact Info) Description 07/18/2024 1:00 PM EDT TH Visit (TeleHealth) [place] [address] Malinda Christopher MD [facility] [place] [address] documented as of this encounter Goals Goal Patient Goal Type Associated Problems Recent Progress Patient-Stated? Author [facility] Medication Compliance and Understanding Patient Facing Action Plan Lakeisha Matos, [facility] Note: Achieve and maintain control of Crohn's symptoms as assessed by specialist every 3 to 6 months or more documented as of this encounter Procedures Procedure Name Priority Date/Time Associated Diagnosis Comments MRI ENTEROGRAPHY WITH/WO CONTRAST Routine 04/22/2022 7:10 PM EST Crohn's disease of small and large intestines with complication documented in this encounter Results * MRI [...] who have questions please contact the health critical care nurse practitioner that requested your imaging first. ? Electronically signed by: Clare Dominguez MD, [facility] ([phone]), at 04/23/2022 11:52 AM Narrative 04/23/2022 11:52 [...] a subtle, encapsulated, ovoid region of increased [id number] within the root of the mesentery in [...] patients who have questions please contactthe health critical care nurse practitioner that requested your imaging first. Electronically signed by: Clare Dominguez MD, [facility]([phone]), at 04/23/2022 11:52 AM L Tai Christopher MD IMG MRI ORDERABLES documented in this encounter Visit Diagnoses Diagnosis Crohn's disease of small and large intestines with complication documented in this encounter Administered Medications Inactive Administered Medications - up to 3 most recent administrations Medication Order MAR Action Action Date Dose Rate Site gadoterate meglumine (Dotarem) (0.5 mMol/mL) injection solution 0-100 mL 0-100 mL, Intravenous, ONCE PRN, 1 dose, Starting on Thu04/22/22 at 1948, Until Thu04/22/22 at 1949, Per Protocol, Radiology Contrast, Routine Given 04/22/2022 7:49 PM EST 12 mLs documented in this encounter Care Teams Instrumentation Technologist Relationship Specialty Start Date End Date Valarie Phillips MD [address] [place] [address] PCP - General General Internal Medicine 09/06/17 documented as of this encounter
--- OUTSIDE RECORDS SUMMARY | 2024-04-14 02:11 | XMS_ITS | Encounter Summary ---
Author Organization [facility] [place] [address] Care Team Providers Care Box Order Person Name Role Phone Karey Robert APRN Primary Care Provider [phone] Encounter Details Date Type Department Care Team (Late st Contact Info) Description 03/17/2023 Telephone Gastroenterology at [facility] [place] [address] Diaz Mayo RN Social History Tobacco Use [...] Telephone Encounter - Diaz Mayo RN - 03/17/2023 2:18 PM EST Janice calls. She tested positive for COVID today Symptoms started yesterday. Cough and body aches. No fever. She is wondering if she should take Paxlovid and if she should do Humira injection due Thursday. Advised her to discuss Paxlovid with PCP. We do not have strong feeling either way. If PCP recommends then okay to take. Whether to do Humira shot on Thursday depends on symptoms. If she is 80% better and has no fever thenokay to take on time. If still having lots of symptoms and/or has a fever, then she should hold injection until fever free and feeling better. The patient indicates understanding of these issues and agrees with the plan. documented in this encounter Plan of Treatment Upcoming Encounters Date Type Department Care Team (Late st Contact Info) Description 07/18/2024 1:00 PM EDT TH Visit (TeleHealth) [place] [address] Malinda Christopher MD [facility] [place] [address] documented as of this encounter Goals Goal Patient Goal Type Associated Problems Recent Progress Patient-Stated? Author [facility] Medication Compliance and Understanding Patient Facing Action Plan Lakeisha Matos, [facility] Note: Achieve and maintain control of Crohn's symptoms as assessed by specialist every 3 to 6 months or more documented as of this encounter Visit Diagnoses Not on filedocumented in this encounter Care Teams Box Order Person Relationship Specialty Start Date End Date Karey Robert APRN [address] [place] [address] PCP - General Geriatric Medicine 12/29/22 documented as of this encounter
--- OUTSIDE RECORDS SUMMARY | 2024-04-14 02:12 | XMS_ITS | Encounter Summary ---
Author Organization [facility] [place] [address] Care Team Providers Care Net Software Engineer Name Role Phone Valarie Phillips MD Primary Care Provider [phone] Reason for Visit * Reason Comments Specialty Refill Management Encounter Details Date Type Department Care Team (Late st Contact Info) Description 05/06/2021 Specialty [place] [address] Marti Mott CPHT Social History Tobacco Use [...] Progress Notes * Marti Jauregui CPHT - 05/06/2021 9:11 AM EST Clinical Management Plan: Refill Specialty [...] and Drug intolerance: Allergies Allergen Reactions ??? [place] Medication Reconciliation Discrepancies (compared to [facility] med list) No Specialty Pharmacy Refill Questionnaire Refill Questionnaire 05/06/2021 What is the name of the specialty medication you are refilling? Humira Are you taking any new medications? No Any new medical condition? No Any new allergies? No Any new side effects that are bothersome? No What date will you need this fill by? 05/17/2021 Adherence: Any missed doses? No Patient understands no changes to current drug regimen were made. Marti Jauregui CPHT 05/06/21 9:12 AM documented in this encounter Plan of Treatment Upcoming Encounters Date Type Department Care Team (Late st Contact Info) Description 07/18/2024 1:00 PM EDT TH Visit (TeleHealth) [place] [address] Malinda Christopher MD [facility] [place] [address] documented as of this encounter Goals Goal Patient Goal Type Associated Problems Recent Progress Patient-Stated? Author [facility] Medication Compliance and Understanding Patient Facing Action Plan Lakeisha Matos, [facility] Note: Achieve and maintain control of Crohn's symptoms as assessed by specialist every 3 to 6 months or more documented as of this encounter Visit Diagnoses Not on filedocumented in this encounter Care Teams Net Software Engineer Relationship Specialty Start Date End Date Valarie Phillips MD [address] [place] [address] PCP - General General Internal Medicine 09/06/17 documented as of this encounter
--- OUTSIDE RECORDS SUMMARY | 2024-04-14 02:12 | XMS_ITS | Encounter Summary ---
[place] [address] Care Team Providers Care Assistant Baseball Coach Name Role Phone Valarie Phillips MD Primary Care Provider [phone] Reason for Visit * Reason Comments Specialty Refill Management Encounter Details Date Type Department Care Team (Late st Contact Info) Description 12/17/2020 Specialty [place] [phone] Viji Da Silva, [facility] Social History Tobacco Use Types [...] as of this encounter Progress Notes * Viji Da Silva - 12/17/2020 9:50 AM EDT Clinical Management Plan: Refill Specialty Pharmacy Consultation; Viji Da Silva Comprehensive Medication Management (CMM) Janice Petty Mahoney Ms. Janice Mahoney is a 60 y.o. (1960) female who was contacted in [...] and Drug intolerance: Allergies Allergen Reactions ??? [place] Medication Reconciliation Discrepancies (compared to [facility] med list) No Specialty Pharmacy Refill Questionnaire Refill Questionnaire 12/17/2020 What is the name of the specialty medication you are refilling? Humira Pen 40MG/0.4ML PNKT Are you taking any new medications? No Any new medical condition? No Any new allergies? No Any new side effects that are bothersome? No What date will you need this fill by? 12/21/2020 Adherence: Any missed doses? No Patient understands no changes to current drug regimen were made. Viji Da Silva 12/17/20 9:51 AM documented in this encounter Plan of Treatment Upcoming Encounters Date Type Department Care Team (Late st Contact Info) Description 07/18/2024 1:00 PM EDT TH Visit (TeleHealth) [place] [address] Malinda Christopher MD [facility] [place] [address] documented as of this encounter Goals Goal [...] on filedocumented in this encounter Care Teams Assistant Baseball Coach Relationship Specialty Start Date End Date Valarie Phillips MD [address] [place] [address] PCP - General General Internal Medicine 09/06/17 documented as of this encounter
--- OUTSIDE RECORDS SUMMARY | 2024-04-14 02:12 | XMS_ITS | Encounter Summary ---
Author Organization [facility] [place] [address] Care Team Providers Care Lactation Consultant Name Role Phone Valarie Phillips MD Primary Care Provider [phone] Encounter Details Date Type Department Care Team (Late st Contact Info) Description 04/27/2020 [place]phone [place] [address] Gigi Almanzar CPHT Social History Tobacco Use Types Packs/Day [...] encounter Miscellaneous Notes * Telephone Encounter - Gigi Almanzar - 04/27/2020 9:23 AM EST Clinical Management Plan: Refill Specialty Pharmacy Consultation; Gigi Almanzar Comprehensive Medication Management (CMM) Janice Malinda Denzel Ms. Janice Mahoney is a 60 y.o. (1960) female who was contacted in regard to a specialty medication refill reminder. Spoke with patient regarding Humira. A review of the medication therapy was performed. The medication was refilled as scheduled, and all medication related questions and concerns were addressed. The specialty pharmacy staff will follow up with the patient 5-7 days prior to next refill. Was a change made to the Care Plan: No Allergies and Drug intolerance: Allergies Allergen Reactions ??? [place] Medication Reconciliation Discrepancies (compared to [facility] med list) No New medications: No New medical conditions: No New allergies: No Adherence: Any missed doses? No Are you experiencing any side effects from your medications? No Patient understands no changes to current drug regimen were made.. Gigi Almanzar 04/27/20 9:23 AM documented in this encounter Plan of Treatment Upcoming Encounters Date Type Department Care Team (Late st Contact Info) Description 07/18/2024 1:00 PM EDT TH Visit (TeleHealth) [place] [address] Malinda Christopher MD [facility] [place] [address] documented as of this encounter Goals Goal Patient Goal Type Associated Problems Recent Progress Patient-Stated? Author [facility] Medication Compliance and Understanding Patient Facing Action Plan No Lakeisha Kent, [facility] Note: Achieve and maintain control of Crohn's symptoms as assessed by specialist every 3 to 6 months or more documented as of this encounter Visit Diagnoses Not on filedocumented in this encounter Care Teams Lactation Consultant Relationship Specialty Start Date End Date Valarie Phillips MD [address] [place] [address] PCP - General General Internal Medicine 09/06/17 documented as of this encounter
--- OUTSIDE RECORDS SUMMARY | 2024-04-14 02:12 | XMS_ITS | Encounter Summary ---
Author Organization [facility] [place] [address] Care Team Providers Care Western Tack Assembly Line Worker Name Role Phone Valarie Phillips MD Primary Care Provider [phone] Encounter Details Date Type Department Care Team (Latest Contact Info) Description 01/18/2021 10:25 AM EST Laboratory Appointment Lab [address] [place] [address] Crohn's disease of both small and large intestine with rectal bleeding; Colonic Crohn's with mid small bowel segment [...] PM EDT TH Visit (TeleHealth) [place] [phone] Malinda Christopher MD [facility] [place] [address] documented as of this encounter Goals Goal Patient Goal Type Associated Problems Recent Progress Patient-Stated? Author [facility] Medication Compliance and Understanding Patient Facing Action Plan Lakeisha Matos, [facility] Note: Achieve and maintain control of Crohn's symptoms as assessed by specialist every 3 to 6 months or more documented as of this encounter Procedures Procedure Name Priority Date/Time Associated Diagnosis Comments HC C-REACTIVE PROTEIN Routine 01/18/2021 10:35 AM EST Crohn's disease of both small and large intestine with rectal bleeding Colonic Crohn's with mid small bowel segment HEMOGRAM Routine 01/18/2021 10:35 AM EST Crohn's disease of both small and large intestine with rectal bleeding Crohn's disease of colon with complication DIFFERENTIAL, AUTOMATED Routine 01/18/2021 10:35 AM EST Crohn's disease of both small and large intestine with rectal bleeding Crohn's disease of colon with complication HC CBC,PLT & AUTO DIFF Routine 01/18/2021 10:35 AM EST Crohn's disease of both small and large intestine with rectal bleeding Colonic Crohn's with mid small bowel segment HEPATIC FUNCTION PANEL Routine 01/18/2021 10:35 AM EST Crohn's disease of both small and large intestine with rectal bleeding Colonic Crohn's with mid small bowel segment documented in this encounter Results * Differential, Automated (01/18/2021 10:35 AM EST) Neutrophil % 51.0 % [facility] Neutrophil Absolute 3.60 1.70 - 6.10 x10(3)/[facility] Lymph % 36.1 % [facility] Lymphocytes Abs 2.6 0.9 - 3.2 x10(3)/[facility] Monocyte % 8.5 % [facility] Monocyte Abs 0.6 0.3 - 0.9 x10(3)/[facility] Eos % 3.1 % [facility] Eosinophils Abs 0.2 0.0 - 0.4 x10(3)/[facility] Basophil % 0.7 % [facility] Baso Absolute 0.0 0.0 - 0.1 x10(3)/[facility] Immature Gran % 0.60 % [facility] Comment: Immature granulocytes(IG's)percentage and absolute count will include metamyelocytes, myelocytes, and promyelocytes. Blood smears from CBCs yielding IG's will be scanned manually for concordance. If this scan disagrees with the automated IG or if promyelocytes are noted, a manual differential will be performed. Immature Gran Absolute 0.04 0.00 - 0.04 x10(3)/[facility] Blood 01/18/2021 10:3 5 AM EST 01/18/2021 10:46 AM EST Narrative Resulting Agency Comment Spec In Lab L Tai Christopher MD HEMATOLOGY ORDERABLE S [facility] [place] [address] * Hemogram (01/18/2021 10:35 AM EST) White Blood Cell 7.1 4.0 - 9.5 x10(3)/[facility] Red Blood Cell 4.16 4.00 - 5.21 x10(6)/[facility] Hemoglobin 12.6 11.7 - 15.5 g/dL [facility] Hematocrit 38.6 35.7 - 45.8 % [facility] Mean Cell Volume 92.8 82.6 - 94.4 fL [facility] Mean Cell Hemoglobin 30.3 27.1 - 32.0 pg [facility] Mean Cell Hemoglobin Concentration 32.6 31.7 - 35.0 g/dL [facility] Platelet 275 145 - 357 x10(3)/[facility] RDW Standard Deviation 41.3 37.0 - 46.0 fL [facility] RDW coefficient of variation 12.1 11.5 - 14.1 % [facility] Mean Platelet Volume 8.9 7.6 - 12.9 fL [facility] NRBC% auto 0.0 % [facility] NRBC Absolute 0.000 0.000 - 0.000 x10(3)/mcL [facility] Blood 01/18/2021 10:3 5 AM EST 01/18/2021 10:46 AM EST Narrative Resulting Agency Comment Spec In Lab L Tai Christopher MD HEMATOLOGY ORDERABLE S Performing Organization Address [facility] de Phone Number [facility] [place] [address] * Hepatic Function Panel (01/18/2021 10:35 AM EST) Protein, Total 7.0 6.1 - 8.0 g/dL [facility] Albumin 4.3 3.2 - 5.2 g/dL [facility] Aspartate Aminotransferase 20 0 - 30 unit/L [facility] Alanine Aminotransferase 17 0 - 30 unit/L [facility] Alkaline Phosphatase 74 35 - 105 unit/L [facility] Bilirubin, Total 0.3 0.2 - 1.3 mg/dL [facility] Bilirubin, Direct 0.1 0.0 - 0.3 mg/dL [facility] Blood 01/18/2021 10:3 5 AM EST 01/18/2021 10:46 AM EST Narrative Resulting Agency Comment Spec In Lab L Tai Christopher MD CHEMISTRY ORDERABLES Performing Organization Address [facility] de Phone Number [facility] [place] [address] * CRP, acute inflammation (01/18/2021 10:35 AM EST) C-Reactive Protein <3.0 <=4.9 mg/L [facility] Blood 01/18/2021 10:3 5 AM EST 01/18/2021 10:46 AM EST Narrative Resulting Agency Comment Spec In Lab L Tai Christopher MD CHEMISTRY ORDERABLES [address] [place] [address] documented in this encounter Visit Diagnoses Diagnosis Crohn's disease of both small and large intestine with rectal bleeding Regional enteritis of small intestine with large intestine Colonic Crohn's with mid small bowel segment documented in this encounter Care Teams Western Tack Assembly Line Worker Relationship Specialty Start Date End Date Valarie Phillips MD [address] [place] [address] PCP - General General Internal Medicine 09/06/17 documented as of this encounter
--- OUTSIDE RECORDS SUMMARY | 2024-04-14 02:12 | XMS_ITS | Encounter Summary ---
Author Organization [facility] [place] [address] Care Team Providers Care Humanities Instructor Name Role Phone Valarie Phillips MD Primary Care Provider [phone] Reason for Visit * Reason Comments Medication Management Encounter Details Date Type Department Care Team (Late st Contact Info) Description 03/12/2021 Specialty Pharmacy Pharmacy at [facility] [place] [address] Jennie Barkley [facility] Social History Tobacco Use Types [...] Progress Notes * Jennie Barkley RPH - 03/12/2021 8:54 AM EST Clinical Management Plan: Refill Specialty Pharmacy Consultation; Jennie Barkley [facility] Comprehensive Medication Management (CMM) Janice Mahoney Ms. [...] and Drug intolerance: Allergies Allergen Reactions ??? [place] Medication Reconciliation Discrepancies (compared to [facility] med list) No Specialty Pharmacy Refill Questionnaire Refill Questionnaire 03/12/2021 What is the name of the specialty medication you are refilling? Humira Are you taking any new medications? No Any new medical condition? No Any new allergies? No Any new side effects that are bothersome? No What date will you need this fill by? 03/22/2021 Adherence: Any missed doses? No Patient understands no changes to current drug regimen were made. Jennie Barkley RPH 03/12/21 8:58 AM documented in this encounter Plan of Treatment Upcoming Encounters Date Type Department Care Team (Late st Contact Info) Description 07/18/2024 1:00 PM EDT TH Visit (TeleHealth) [place] [address] Malinda Christopher MD [facility] [place] [address] documented as of this encounter Goals Goal Patient Goal Type Associated Problems Recent Progress Patient-Stated? Author [facility] Medication Compliance and Understanding Patient Facing Action Plan Lakeisha Matos, [facility] Note: Achieve and maintain control of Crohn's symptoms as assessed by specialist every 3 to 6 months or more documented as of this encounter Visit Diagnoses Not on filedocumented in this encounter Care Teams Humanities Instructor Relationship Specialty Start Date End Date Valarie Phillips MD [address] [place] [address] PCP - General General Internal Medicine 09/06/17 documented as of this encounter
--- OUTSIDE RECORDS SUMMARY | 2024-04-14 02:12 | XMS_ITS | Encounter Summary ---
Author Organization [facility] [place] [address] Care Team Providers Care Camp Dishwasher Name Role Phone Valarie Phillips MD Primary Care Provider [phone] Encounter Details Date Type Department Care Team (Latest Contact Info) Description 04/30/2021 8:00 AM EST TH Visit (TeleHealth) [place] [address] Malinda Christopher MD [facility] [place] [address] Colonic Crohn's with mid small bowel segment [...] * Patient Instructions* Malinda Christopher MD - 04/30/2021 8:40 AM EST # Continue Humira # Routine labs and also Quant gold # MRE next year # Repeat colonoscopy also in 2022 due to small TA in 2019 # Follow-up with me via tele in this year documented in this encounter Progress Notes * Malinda Christopher MD - 04/30/2021 8:00 AM EST GASTROENTEROLOGY TELEMEDICINE PROGRAM - ESTABLISHED PATIENT VISIT Chief Complaint: Janice Mahoney is a 61 y[address] of Dr[address] Phillips here for follow- up of Crohn's ileocolitis. Patient Active Problem List Diagnosis ??? Colonic Crohn's with mid small bowel segment Overview Note: ?? Location: Colonic and mid small bowel, Behavior: Inflammatory perianal disease in form of skin tags ?? Symptoms: worsening hemorrhoids April 2017 undergoes excisional hemorrhoidectomy that did not heal ?? 10/02/17: Colonoscopy ([facility] [place]) Large perianal inflamed skin tags ??found on [...] transmural enhancement, however, no mesenteric inflammation. ?? [place] 04/2020 - No active Crohn's apart from mild erythema in sigmoid that was inactive on bx. Mild narrowing of the sigmoid colon related to diverticular dx, less likely Crohn's. 3 mm adenomas descending colon. Nl TI. Treatments: ?? Started Humira end of 10/2017, 12/17/17 [place] Humira level 12.8, no antibodies on every two week Humira . Repeat [place] Spring 2019 with Ab and low drug level. Repeat [facility] with level 20 and no Ab. Health Maintenance: ?? 10/19/17 TB - Quant gold neg ?? 10/19/17 Hep B negative ?? 01/2018 Shingrix first dose. Second Shingrix July 2018. ?? 01/2018 Pneumococcal (presumed Pneumovax) ?? PCV 2018 ??? Anal pain ??? Clotting disorder Overview Note: Protein C deficiency ??? Diverticulitis of large intestine without perforation or abscess without bleeding ??? Gallstones Interval history: Ms. Mahoney is doing well overall. She is wondering whether or not to get the spike antibody checked. Had Moderna x3 plus booster She feels well without nausea, no rectal bleeding except once in a great while that she thought might be due to hemorrhoids. Lost 5 pounds after half-way and has stabilized. Mild LLQ abdominal pain that accompanies constipation. Then it completely goes away. MgOxide helps with the constipation. Steers clear of Miralax because had allergic reaction in the past and is unsure if the trigger. Hoping to push off the MRE due to the difficulties with test and also the cost. There has been no apthous stomatitis, episcleritis, uveitis, inflammatory arthritis, pyoderma gangrenosum, erythema nodosum, or perianal lesions. Review of systems: 14-point review of systems reviewed and negative except as above. Medications: Outpatient Medications Prior to Visit Medication Sig Dispense Refill ??? omeprazole (PriLOSEC) 20 mg Capsule, Delayed Release(E.C.) Take 1 capsule by mouth daily. 90 capsule 3 ??? adalimumab (Humira,CF, Pen) 40 mg/0.4 mL Pen Injector Kit Inject the contents of one pen (40 mg) subcutaneously once every 7 days. 6 kit 1 ??? senna (Senokot) 8.6 mg Tablet Take by mouth daily. ??? ondansetron (Zofran) 4 mg Tablet Take 1 tablet by mouth every 8 hours as needed for Nausea. 4 tablet 0 ??? nystatin-triamcinolone (MYCOLOG II) Cream Apply topically 2 times daily. Apply a tiny amount asthin layer to perianal area twice daily x2 weeks then stop 30 g 0 ??? UNABLE TO FIND Take by mouth every other day. Med Name: Nuun, OTC supplement ??? lidocaine (XYLOCAINE) 2 % jelly Apply topically 4 times daily as needed. 30 mL 0 ??? calcium carbonate (TUMS) 200 mg calcium (500 mg) Tablet, Chewable Take 1 tablet by mouth 4 times daily as needed. ??? PROAIR HFA 90 mcg/actuation HFA Aerosol Inhaler Inhale 2 Inhalation into the lungs every 4 hours as needed. ??? acetaminophen (TYLENOL) 325 mg Tablet Take 325 mg by mouth 2 times daily as needed for Pain. ??? magnesium citrate Solution Take by mouth. Indications: Patient states she takes one capful every other day. ??? NIFEdipine, Bulk, Powder 0.2% ointment apply to anus two times daily (Patient not taking: Reported on 12/19/2019) 2.5 g 0 ??? lactobacillus rhamnosus, GG, (CULTURELLE) 10 billion cell Capsule Take 1 capsule by mouth daily. ??? DILTIAZEM HCL, BULK, MISC by Misc.(Non-Drug; Combo Route) route. Gel ??? acyclovir (ZOVIRAX) 200 mg Capsule ??? Guar Gum Packet Take by mouth. ??? docusate sodium (COLACE ORAL) Take by mouth. No facility-administered medications prior to visit. Allergies: is allergic to [place]. Past Medical History: has a past medical history of Diverticulitis and Hemorrhagic disorder. Past Surgical History: has a past surgical history that includes Colonoscopy, Diagnostic (32477) (02/19/2012); Cholecystectomy; Hysterectomy; Hemorrhoid surgery; Colonoscopy, Biopsy (33846) (N/A, 10/02/2017); Colonoscopy, Biopsy ([id number]) (N/A, 04/26/2020); and Colonoscopy, [place], Snare (08014) (N/A, 04/26/2020). Family History: family history includes Asthma in her brother and sister; Cancer in her maternal grandmother and paternal grandmother. denies family history of colon cancer, IBD, or celiac disease in mother father or other family members Social History: reports that she quit smoking about 27 years ago. Her smoking use included cigarettes. She has a 7.50 pack-year smoking history. She has never used smokeless tobacco. She reports current alcohol use of about 5.0 standard drinks of alcohol per week. She reports that she does not use drugs. Physical exam: No Physical Examination performed during this telemedicine visit Laboratory studies, imaging, and procedures (my review of prior records): Lab Results Component Value Date WBC 7.1 01/18/2021 RBC 4.16 01/18/2021 HGB 12.6 01/18/2021 HCT 38.6 01/18/2021 MCV 92.8 01/18/2021 MCH 30.3 01/18/2021 MCHC 32.6 01/18/2021 PLATELET 275 01/18/2021 RDWCV 12.1 01/18/2021 Lab Results Component Value Date ALT 17 01/18/2021 AST 20 01/18/2021 ALKPHOS 74 01/18/2021 BILITOT 0.3 01/18/2021 Lab Results Component Value Date CRP <3.0 01/18/2021 Assessment and Plan: Ms. Mahoney is a 61 y.o. patient with Crohn's disease involving the entire colon as well as a short segment within the ileum. Last staging colonoscopy without active disease within the colon and a normal ileoscopy. However, last MRE in 2019 showed short segment of thickening. She is feeling very well without any symptoms attributable to her Crohn's disease. Only symptom seems to be associated with mild constipation that easily treated with magnesium oxide. Had a long discussion about the data regarding development of immunity following vaccination to COVID-19 in the setting of IBD and anti-TNF. I shared with her results of multiple studies showing thatantibody responses match that of controls, despite the FDA classifying anti-TNF as a immune compromising. Discussed options including enrolling in the IBD CORALE study, obtaining spike antibody testing, or submitting her name for Che. After I reviewed results of the studies above, she felt comfortable doing none of the above and was reassured that after four doses of Moderna she very likely has a good antibody response based on studies. Also discussed outcomes in patients on anti-TNF with IBD who contracted COVID- 19. Reassured her that outcomes were no more severe than those not on anti-TNF. She knows to call us should she develop COVID-19, and we would plan on holding her Humira only if she had significant symptoms, like fever, shortness of breath, or severe cough. Discussed her MRE timing. I think it is okay to wait until 2022. However, she will have her labs checked again in May or June. We will check QuantiFERON gold with next labs. Recommendations: # Continue Humira # Routine labs and also Quant gold # MRE next year # Repeat colonoscopy also in 2022 due to small TA in 2019 # Follow-up with me via tele in Jan/Feb this year I spent 40 min today reviewing the chart preparing for this visit, counseling the patient [id number] on the issues outlined above, and documenting an implementing the plan. The patient was located in [place] at the time of their telemedicine visit. Omar Christopher MD [employer] Co-Director, [facility] Section of [place] [address] documented in this encounter Plan of Treatment Upcoming Encounters Date Type Department Care Team (Late st Contact Info) Description 07/18/2024 1:00 PM EDT TH Visit (TeleHealth) [place] [address] Malinda Christopher MD [facility] [place] [address] documented as of this encounter Goals Goal Patient Goal Type Associated Problems Recent Progress Patient-Stated? Author [facility] Medication Compliance and Understanding Patient Facing Action Plan Lakeisha Matos, [facility] Note: Achieve and maintain control of Crohn's symptoms as assessed by specialist every 3 to 6 months or more documented as of this encounter Results * (ABNORMAL) QuantiFERON-TB Gold (05/28/2021 1:26 PM EDT) Quantiferon Nil 0.126 IU/mL [facility] QFT TB Ag1-Nil 0.402 IU/mL [facility] QFT TB Ag2-Nil 0.387 IU/mL [facility] Quantiferon Mitogen-Nil 9.874 IU/mL [facility] Quantiferon-TB Gold Positive(A) Negative [facility] Quantiferon Tb Interp M. tuberculosis infection [...] are suspected alternative tests should be performed. [facility] Blood 05/28/2021 1:26 PM EDT 05/30/2021 6:45 AM EDT Narrative Resulting Agency Comment Spec In Lab L Tai Christopher MD CHEMISTRY ORDERABLES [facility] [place] [address] documented in this encounter Visit Diagnoses Diagnosis Colonic Crohn's with mid small bowel segment documented in this encounter Care Teams Camp Dishwasher Relationship Specialty Start Date End Date Valarie Phillips MD [address] [place] [address] PCP - General General Internal Medicine 09/06/17 documented as of this encounter
--- OUTSIDE RECORDS SUMMARY | 2024-04-14 02:12 | XMS_ITS | Encounter Summary ---
[place] [address] Care Team Providers Care Lock Assembler Name Role Phone Valarie Phillips MD Primary Care Provider [phone] Reason for Visit * Reason Comments Specialty Pharmacy Review Encounter Details Date Type Department Care Team (Late st Contact Info) Description 10/02/2020 Specialty [place] [address] Lary Mckinney, [facility] Social History Tobacco Use Types [...] as of this encounter Progress Notes * Lary Mckinney - 10/02/2020 11:59 PM EDT The [facility] has completed a benefits investigation for Janice Mahoney to review theireligibility to fill at [facility]. Per patient's medication list they are prescribed Humira and the medication is currently filled at the [facility]. documented in this encounter Plan of Treatment Upcoming Encounters Date Type Department Care Team (Late st Contact Info) Description 07/18/2024 1:00 PM EDT TH Visit (TeleHealth) [place] [address] Malinda Christopher MD [facility] [place] [address] documented as of this encounter Goals Goal Patient Goal Type Associated Problems Recent Progress Patient-Stated? Author [facility] Medication Compliance and Understanding Patient Facing Action Plan Lakeisha Matos, [facility] Note: Achieve and maintain control of Crohn's symptoms as assessed by specialist every 3 to 6 months or more documented as of this encounter Visit Diagnoses Not on filedocumented in this encounter Care Teams Lock Assembler Relationship Specialty Start Date End Date Valarie Phillips MD [address] [facility] [place] [place] [address] PCP - General General Internal Medicine 09/06/17 documented as of this encounter
--- OUTSIDE RECORDS SUMMARY | 2024-04-14 02:12 | XMS_ITS | Encounter Summary ---
Author Organization Formerly [facility] [place] [address] Care Team Providers Care Mission Worker Name Role Phone Valarie Phillips MD Primary Care Provider [phone] Reason for Visit * Auth/Cert Specialty Diagnoses / Procedures Referred By Vashti t Referred To Contact Diagnoses Crohn's disease Rectal pain Crohn's disease, c/o LLQ and rectal pain with defecation (IVCS) Suprep-being e-prescribed by Fide Donnelly (patient allergies to PEG) Procedures PRO COLONOSCOPY, DIAGNOSTIC PRO COLONOSCOPY, BIOPSY PRO COLONOSCOPY, REMV LESN, SNARE COLONOSCOPY, DIAGNOSTIC Referral ID Status Reason Start Date Expiration Date Visits Re quested Visits Authorized [id number] 1 1 Encounter Details Date Type Department Care Team (Latest Contact Info) Description 04/26/2020 1:04 PM EST - 04/26/2020 4:21 PM EST Hospital En[place] [address] Malinda Christopher MD [facility] [place] [address] Discharge Disposition: Home Social History Tobacco Use [...] Sign Reading Time Taken Comments Blood Pressure 104/67 04/26/2020 4:00 PM EST Pulse 89 04/26/2020 3:22 PM EST Temperature 36.8 ??C (98.2 ??F) 04/26/2020 1:22 PM ES T Respiratory Rate 18 04/26/2020 3:22 PM EST Oxygen Saturation 99% 04/26/2020 4:00 PM EST Inhaled Oxygen Concentration - - Weight 61.2 kg (135 lb) 04/26/2020 1:22 PM EST Height 152.4 cm (5') 04/26/2020 1:22 PM EST Body Mass Index 26.37 04/26/2020 1:22 PM EST documented in this encounter Discharge Instructions * Discharge Instructions* Mariah Hughes, RN - 04/26/2020 3:54 PM EST Colonoscopy: What to Expect at Home Your Recovery Your doctor will talk to you about when you will need your next colonoscopy. Your doctor can help you decide how often you need to be checked. This will depend on the results of your test and your risk for colorectal cancer. After the test, you may be bloated or have gas pains. You may need to pass gas. If a biopsy was done or a polyp was removed, you may have streaks of blood in your stool (feces) for a few days. Problems such as heavy rectal bleeding may not occur until several weeks after the test. This isn't common. But it can happen after polyps are removed. This care sheet gives you a general idea about how long it will take for you to recover. But each person recovers at a different pace. Follow the steps below to get better as quickly as possible. How can you care for yourself at home? Activity Rest when you feel tired. ?? You can do your normal activities when it feels okay to do so. Diet ?? Follow your doctor's directions for eating. ?? Unless your doctor has told you not to, drink plenty of fluids. This helps to replace the fluidsthat were lost during the colon prep. ?? Do not drink alcohol. Medicines ?? Your doctor will tell you if and when you can restart your medicines. He or she will also give you instructions about taking any new medicines. ?? If you take blood thinners, such as warfarin (Coumadin), clopidogrel (Plavix), or aspirin, be sure to talk to your doctor. He or she will tell you if and when to start taking those medicines again. Make sure that you understand exactly what your doctor wants you to do. ?? If polyps were removed or a biopsy was done during the test, your doctor may tell you not to take aspirin or other anti-inflammatory medicines for a few days. These include ibuprofen (Advil, Motrin) and naproxen (Aleve). Other instructions ?? For your safety, do not drive or operate machinery until the medicine wears off and you can think clearly. Your doctor may tell you not to drive or operate machinery until the day after your test. ?? Do not sign legal documents or make major decisions until the medicine wears off and you can think clearly. The anesthesia can make it hard for you to fully understand what you are agreeing to. Additional Information for Sedation Patients For patients who received sedation: ?? You may have received medications before and/or during your procedure which effects your judgement and reaction time. ?? Do not drive, operate machinery, drink alcoholic beverages or make important decisions for 24 hours. ?? Be careful on stairs as you may be unsteady on your feet. ?? You may eat a regular diet as tolerated. ?? Do not smoke if you are alone. ?? IV site: Slight redness or tenderness is normal, you can use a warm compress if you would like. If tenderness and/or redness increase or if foul drainage occurs, please contact your Doctor. Please call [phone] before 8pm Mon-Fri with problems, questions or concerns. If you call after 8pm or on weekends, call the Hospital at [phone] and ask to speak to the Novelty Worker sld inclusion teacher and the bullet swaging machine operator will contact that person for you. When should you call for help? Call [phone] anytime you think you may need emergency care. For example, call if: ?? You passed out (lost consciousness). ?? You pass maroon or bloody stools. ?? You have trouble breathing. Call your doctor now or seek immediate medical care if: ?? You have pain that does not get better after you take pain medicine. ?? You are sick to your stomach or cannot drink fluids. ?? You have new or worse belly pain. ?? You have blood in your stools. ?? You have a fever. ?? You cannot pass stools or gas. Watch closely for changes in your health, and be sure to contact your doctor if you have any problems. Where can you learn more? [facility] View your After Visit Summary and more online at [email or web address] If you would like to provide feedback about your hospital experience, please call the Office of Patient and Family Relations at . If you have received this After Visit Summary in error, please immediately return it in person to the department, or notify the [facility] Privacy Office by calling toll free at between the hours of 8AM and 5PM to arrange for our retrieval of the documents at no cost to you. Content Version: 12.2 ?? [id number] [employer]. Care instructions adapted under license by [facility]. If you have questions about a medical condition or this instruction, always ask your healthcare professional. [employer] disclaims any warranty or liability for your use of this information. documented in this encounter Medications at Time of Discharge Medication Sig Dispensed Refills Start Date End Date Doxylamine Succinate 25 mg Tablet Take 12.5 mg by mouth daily. 09/14/2019 12/23/2022 senna (Senokot) 8.6 mg Tablet Take by mouth daily. 022 ondansetron (Zofran) 4 mg Tablet Take 1 tablet by mouth every 8 hours as needed for Nausea. 4 tablet 04/02/2020 02/03/2022 adalimumab 40 mg/0.4 mL Pen Injector Kit Inject the contents of one pen (40 mg) subcutaneously once every 7 days. 6 kit 1 02/27/2020 06/27/2020 nystatin-triamcinol one (MYCOLOG II) Cream Apply topically 2 times daily. Apply a tiny amount as thin layer to perianal area twice daily x2 weeks then stop 30 g 02/06/2020 12/23/2022 omeprazole (PriLOSEC) 20 mg Capsule, Delayed Release(E.C.) Take 1 capsule by mouth daily. 90 capsule 3 06/06/2019 04/27/2020 UNABLE TO FIND Take by mouth every other day. Med Name: Yoon, OTC supplement 02/03/2022 lidocaine (XYLOCAINE) 2 % jelly Apply topically 4 times daily as needed. 30 mL 08/09/2018 02/03/2022 calcium carbonate (TUMS) 200 mg calcium (500 mg) Tablet, Chewable Take 1 tablet by mouth 4 times daily as needed. 02/03/2022 PROAIR HFA 90 mcg/actuation HFA Aerosol Inhaler Inhale 2 Inhalation into the lungs every 4 hours as needed. 01/26/2018 07/28/2023 acetaminophen (TYLENOL) 325 mg Tablet Take 325 mg by mouth 2 times daily as needed for Pain. 02/02/2024 magnesium citrate SolutionIndications :Patient states she takes one capful every other day. Take by mouth. Indications: Patient states she takes one capful every other day. 02/04/20 NIFEdipine, Bulk, Powder 0.2% ointment apply to anus two times daily 2.5 g 10/19/2017 02/03/2022 lactobacillus rhamnosus, GG, (CULTURELLE) 10 billion cell Capsule Take 1 capsule by mouth daily. 02/03/2022 DILTIAZEM HCL, BULK, MISC by [facility]Non-Drug; Combo Route) route. Gel 02/04/20 acyclovir (ZOVIRAX) 200 mg Capsule 06/05/2017 02/03/2022 Guar Gum Packet Take by mouth. 02/03/2022 docusate sodium (COLACE ORAL) Take by mouth. 02/03/2022 documented as of this encounter H&P Notes * Malinda Christopher MD - 04/26/2020 2:26 PM EST Gastroenterology and Hepatology Pre-Procedure History and Physical Exam Procedure: Colonoscopy: Indication: Crohn's restaging Patient Active Problem List Diagnosis Code ??? Anal pain K62.89 ??? Clotting disorder D68.9 ??? Diverticulitis of large intestine without perforation or abscess without bleeding K57.32 ??? Gallstones K80.20 ??? Colonic Crohn's with mid small bowel [...] PM EDT TH Visit (TeleHealth) [place] [address] Malinda Christopher MD [facility] [place] [address] documented as of this encounter Goals Goal Patient Goal Type Associated Problems Recent Progress Patient-Stated? Author [facility] Medication Compliance and Understanding Patient Facing Action Plan Lakeisha Matos, [facility] Note: Achieve and maintain control of Crohn's symptoms as assessed by specialist every 3 to 6 months or more documented as of this encounter Procedures Procedure Name Priority Date/Time Associated Diagnosis Comments SPECIMEN TO PATHOLOGY Routine 04/26/2020 3:14 PM EST SPECIMEN TO PATHOLOGY Routine 04/26/2020 3:00 PM EST SPECIMEN TO PATHOLOGY Routine 04/26/2020 3:00 PM EST SPECIMEN TO PATHOLOGY Routine 04/26/2020 3:00 PM EST SURGICAL PATHOLOGY REPORT Routine 04/26/2020 2:58 PM EST Colonoscopy, Rene Samayoa, Snare ([id number]) 04/26/2020 2:32 PM EST Crohn's disease of both small and large intestine with rectal bleeding Colonoscopy, Biopsy ([id number]) 04/26/2020 2:32 PM EST Crohn's disease of both small and large intestine with rectal bleeding COLONOSCOPY Routine 04/26/2020 2:22 PM EST documented in this encounter Results * Specimen to Pathology (04/26/2020 3:14 PM EST) AP Specimen 04/26/2020 3:14 PM EST 04/26/2020 3:14 PM EST Narrative [facility] - 04/26/2020 3:14 PM EST Specimen requisition ordered. ??Separate Pathology report to follow L Tai Christopher MD PATHOLOGY/[place] [address] * Specimen to Pathology (04/26/2020 3:00 PM EST) AP Specimen 04/26/2020 3:00 PM EST 04/26/2020 3:00 PM EST Narrative [facility] - 04/26/2020 3:00 PM EST Specimen requisition ordered. ??Separate Pathology report to follow L Tai Christopher MD PATHOLOGY/CYTOLOGY [place] Performing Organization Address City/[facility]/[place] [address] * Specimen to Pathology (04/26/2020 3:00 PM EST) AP Specimen 04/26/2020 3:00 PM EST 04/26/2020 3:00 PM EST Narrative [facility] - 04/26/2020 3:00 PM EST Specimen requisition ordered. ??Separate Pathology report to follow L Tai Christopher MD PATHOLOGY/[place] [address] * Specimen to Pathology (04/26/2020 3:00 PM EST) AP Specimen 04/26/2020 3:00 PM EST 04/26/2020 3:00 PM EST Narrative [facility] - 04/26/2020 3:00 PM EST Specimen requisition ordered. ??Separate Pathology report to follow L Tai Christopher MD PATHOLOGY/CYTOLOGY [place] [facility] [place] [address] * Surgical Pathology Report (04/26/2020 2:58 PM EST) Final Diagnosis [id number] ? Location: 4T; EA07; A The signing pathologist has (i) examined the relevant preparation(s) for the specimen(s) and (ii) rendered or confirmed the diagnosis(es). . ?Surgical Pathology DIAGNOSIS A - Non targeted right colon, ?? biopsy: Inactive chronic colitis. No dysplasia is seen. B - Non targeted sigmoid colon, ?? biopsy: Inactive chronic colitis. No dysplasia is seen. C - Non targeted rectum, ?? biopsy: Inactive chronic proctitis. No dysplasia is seen. D - Splenic flexure, ?? polypectomy: Tubular adenoma. CR-PX Electronically signed by: ??Ramiro Sun MD Verified: ??04/30/2020 ?Pathologist Performed at: ??-[facility] Dept. of Pathology, [place], [place] SPECIMEN(S) SUBMITTED A - Non targeted Right Colon biopsies, biopsy (Multiple) B - Non targeted Sigmoid colon biopsies, biopsy (Multiple) C - Non targeted Rectum biopsies, biopsy (Multiple) D - 3 mm Splenic Flexure polyp, resection (Multiple) CLINICAL INFORMATION 60 year-old female, history of Crohn's; restaging and surveillance colonoscopy SPECIMEN PROCESSING A - Labeled/Fixative : Non-targeted right colon biopsies, formalin. Quantity/Size: Multiple, ranging 0.3-0.6 cm. Tissue Description: Soft, polypoid to irregular, yellow-cooper tissues. Sections/Process ing: Submitted en toto ??in 2 cassettes labeled A1-A2. B - Labeled/Fixative : Non-targeted sigmoid colon biopsies, formalin. Quantity/Size: Multiple, averaging 0.3 cm. Tissue Description: Soft, cooper-brown tissues. Sections/Process ing: Submitted en toto ??in 2 cassettes labeled B1-B2. C - Labeled/Fixative : Non-targeted rectum biopsies, formalin. Quantity/Size: Three, averaging 0.4 cm. Tissue Description: Soft, cooper-brown tissues. Sections/Process ing: Submitted en toto ??in 1 cassette labeled C1. D - Labeled/Fixative : 3 mm splenic flexure polyp, formalin. Quantity/Size: Single, 0.3 x 0.3 x 0.2 cm. Tissue Description: Soft, cooper-pink tissue. Sections/Process ing: . SPECIMEN PROCESSING Submitted en toto ??in 1 cassette labeled D1. ??shb 04/30/2020 1:52 PM EST [facility] GI Biopsy 04/26/2020 2:58 PM EST 04/26/2020 2:58 PM EST GI Biopsy 04/26/2020 2:58 PM EST 04/26/2020 2:58 PM EST GI Biopsy 04/26/2020 2:58 PM EST 04/26/2020 2:58 PM EST GI Biopsy 04/26/2020 2:58 PM EST 04/26/2020 2:58 PM EST L Tai Christopher MD PATHOLOGY/CYTOLOGY O RDERABLES Performing Organization Address City/State/[facility] Co de Phone Number [facility] [place] [address] * COLONOSCOPY (04/26/2020 2:22 PM EST) COLONOSCOPY [facility] End[facility] Procedure Date: 04/26/2020 2:22 PM ? Patient Name: Janice Mahoney ? Date of : 1960 ? Age: 60 ? Order #: [id number] ? Instrument Name: [id number] ? Procedure: ? Colonoscopy Indications: ? Disease activity assessment of ? Crohn's disease of the colon Patient Profile: ? This is a 60 year old female. This ? patient has Crohn's colitis with ? perianal involvement, is taking ? adalimumab and is experiencing mild ? symptoms. Providers: ? Omar Christopher MD, Lennie Hendricks, ? Urban Grace, Convict Guard Referring MD: ?Valarie Phillips MD Medicines: ? Midazolam mg IV, Fentanyl micrograms ? IV Complications: ? No immediate complications. Procedure: ? Pre-Anesthesia Assessment: ? - Prior to the procedure, a History ? and Physical was performed, and ? patient medications and allergies ? were reviewed. The patient is ? competent. The risks and benefits of ? the procedure and the sedation ? options and risks were discussed with ? the patient. All questions were ? answered and informed consent was ? obtained. Patient identification and ? proposed procedure were verified by ? the physician in the pre-procedure ? area in the endoscopy suite. Mental ? Status Examination: alert and ? oriented. Airway Examination: normal ? oropharyngeal airway and neck ? mobility. Respiratory Examination: ? clear to auscultation. CV ? Examination: normal. ASA Grade ? Assessment: II - A patient with mild ? systemic disease. After reviewing the ? risks and benefits, the patient was ? deemed in satisfactory condition to ? undergo the procedure. The anesthesia ? plan was to use moderate sedation / ? analgesia (conscious sedation). ? Immediately prior to administration ? of medications, the patient was ? re-assessed for adequacy to receive ? sedatives. The heart rate, ? respiratory rate, oxygen saturations, ? blood pressure, adequacy of pulmonary ? ventilation, and response to care ? were monitored throughout the ? procedure. The physical status of the ? patient was re-assessed after the ? procedure. ? The procedure, indications, benefits, ? risks and alternatives were explained ? to the patient. Specifically ? discussed were potential ? complications including, but not ? limited to, bleeding, perforation, ? infection, missing a cancer, and ? adverse medication reactions. The ? patient was placed in the left ? lateral decubitus position, and a ? digital rectal exam was performed. ? The Colonoscope was inserted in the ? anus and under direct visualization, ? advanced to 12 cm into the ileum. ? Careful inspection was made as the ? colonoscope was withdrawn. The ? colonoscopy was performed without ? difficulty. The patient tolerated the ? procedure well. The quality of the ? bowel preparation was evaluated using ? the BBPS (Gautier Bowel Preparation ? Scale) with scores of: Right Colon = ? 3 (entire mucosa seen well with no ? residual staining, small fragments of ? stool or opaque liquid), Transverse ? Colon = 3 (entire mucosa seen well ? with no residual staining, small ? fragments of stool or opaque liquid) ? and Left Colon = 2 (minor amount of ? residual staining, small fragments of ? stool and/or opaque liquid, but ? mucosa seen well). The total BBPS ? score equals 8. The quality of the ? bowel preparation was good. Scope ? withdrawal time was 12 minutes. ? Findings: ? The perianal and digital rectal examinations with ? mild anal stenosis and giipy-ma-flmsuq sized, soft ? perianal skin tags. ? Mild ill-defined erythema in the sigmoid colon in a ? segment of significant diverticular disease. There ? was also some scarring and linear ulceration at the ? anorectal junction. Otherwise, no signs of active ? Crohn's disease. Biopsies were taken from the R ? colon, sigmoid colon, and rectum separately. ? Multiple small and large-mouthed diverticula were ? found from sigmoid to hepatic flexure. Majority ? involved the sigmoid, where there was a narrowing of ? the colon at about 20 cm. ? A 3 mm polyp with very well-defined borders was found ? in the descending colon. The polyp was sessile. The ? polyp was removed with a cold snare. Resection and ? retrieval were complete. ? The terminal ileum appeared normal. ? Moderate Sedation: ? I was present during the intraservice time as ? documented by the sedation RN. Impression: ?- No clear signs of active Crohn's ? disease apart from mild erythema in ? the sigmoid colon. ? - Mild narrowing of the sigmoid colon ? that may be related to diverticular ? disease or, less likely Crohn's ? disease. ? - Moderate diverticulosis from ? sigmoid to hepatic flexure with most ? involvement in the sigmoid colon. ? - One 3 mm polyp in the descending ? colon, removed with a cold snare. ? Resected and retrieved. ? - The examined portion of the ileum ? was normal. Recommendation: ?- Await pathology results. ? - Continue Humira. ? - Follow-up in IBD Clinic. ? Attending Participation: ? I personally performed the entire procedure. ? __ L. Tai Christopher MD 04/26/2020 3:28:09 PM Number of Addenda: 0 Note Initiated On: 04/26/2020 2:22 PM PROVATION 04/26/2020 2:22 PM EST Valarie Phillips MD GENERAL SURGICAL ORD ERABLES PROVATION documented in this encounter Visit Diagnoses Not on filedocumented in this encounter Administered Medications Inactive Administered Medications - up to 3 most recent administrations Medication Order MAR Action Action Date Dose Rate Site lactated ringers infusion 100 mL/hr, Intravenous, CONTINUOUS, Starting on Perla 04/26/20 at 1345, Until Perla 04/26/20 at 1620, Endoscopy (Day of Procedure) New Bag 04/26/2020 1:33 PM EST 100 mL/hr 100 mL/hr documented in this encounter Active and Recently Administered Medications Times are shown in EST. Continuous Medication Order 04/24/2020 04/25/2020 04/26/2020 lactated ringers infusion (CANCELED) 100 mL/hr, Intravenous, CONTINUOUS, Starting on Perla 04/26/20 at 1345, Until Perla 04/26/20 at 1620, Endoscopy (Day of Procedure) 1333 (New Bag - Prov ider: Brianna Lucas RN) PRN Medication Order 04/24/2020 04/25/2020 04/26/2020 fentaNYL (pf) (50 mcg/mL) multi-dose injection (CANCELED) ONCE PRN, Starting on Perla 04/26/20 at 1434, Until Perla 04/26/20 at 1625, Intra-Operative (Intra-Procedure), Routine 1434 (Given - Provid er: Lennie Hendricks RN)1437 (Given - Provider: Lennie Hendricks RN)1440 (Given - Provider: Lennie Hendricks, NITIN)1445 (Given - Provider: Lennie Hendricks RN) midazolam (pf) (Versed) (1 mg/mL) multi-dose injection (CANCELED) ONCE PRN, Starting on Perla 04/26/20 at 1434, Until Perla 04/26/20 at 1625, Intra-Operative (Intra-Procedure), Routine 1434 (Given - Provid er: Lennie Hendricks RN)1437 (Given - Provider: Lennie Hendricks RN)1440 (Given - Provider: Lennie Hendricks RN)1445 (Given - Provider: Lennie Hendricks RN)1450 (Given - Provider: Lennie Hendricks RN)1456 (Given - Provider: Lennie Hendricks RN) documented in this encounter Care Teams Mission Worker Relationship Specialty Start Date End Date Valarie Phillips MD [address] [place] [address] PCP - General General Internal Medicine 09/06/17 documented as of this encounter
--- OUTSIDE RECORDS SUMMARY | 2024-04-14 02:12 | XMS_ITS | Encounter Summary ---
[place] [address] Care Team Providers Care Bicycle Subassembler Name Role Phone Valarie Phillips MD Primary Care Provider [phone] Reason for Visit * Reason Comments Prior Authorization Humira Pen 40mg/0.4m L Encounter Details Date Type Department Care Team (Late st Contact Info) Description 03/26/2020 Specialty Pharmacy [place] [phone] Jolly Lee Social History Tobacco Use Types Packs/Day Years Used Date Smoking Tobacco: Former Smokeless Tobacco: Never Alcohol Use Standard Drinks/Week Comments Yes 5 (1 standard drink = 0.6 oz pur e alcohol) Sex and Gender Information Value Date Recorded Sex Assigned at Female 12/20/2022 7:55 AM EDT Gender Identity Not on file Sexual Orientation Not on file documented as of this encounter Progress Notes * Jolly Lee - 03/26/2020 1:28 PM EST [facility], Prior Authorization Approval Medication Name: HUMIRA(CF) PEN 40 MG/0.4 ML SUBCUTANEOUS KIT Medication ID: [id number] Approval Dates: 02/25/2020 to 03/26/2021 Insurance requirements/notes: None Other Notes: None Case/Reference #: [id number] Approval notification Received via: [facility] Copay: $5.00 Copay assistance: Copay Notes: Insurance mandated Pharmacy: [facility] Fillable at [facility]: Yes Pharmacy staff will be reaching out to the patient to inform them of their medication[facility]. If applicable, a pharmacist will speak with the patient to offer our specialty pharmacy services and to arrange delivery of their medication. Jolly Lee 03/26/20 1:33 PM [facility], Medication Prior Authorization Request Patient: Janice Mahoney Patient : 1960 Patient Address: [address] [address] (home) Medication Name: HUMIRA(CF) PEN 40 MG/0.4 ML SUBCUTANEOUS KIT Medication ID: [id number] Patient Location: [facility] 4L Patient Location Comment: Medication Strength Frequency Requested: inject 40mg subcutaneously once every 7 days Qty/Day Supply: 07/04 New Start: Renewal Diagnosis & ICD-10 Code: Crohn's Disease Subscriber Insurance: PADMINI Subscriber Insurance Comment: Fax: Physician: KANDI MCCRAY Physician Comment : PA Status: APPROVED Pharmacy: [facility] Insurance requirements/notes: None Copay: $5.00 Copay assistance: Copay assistance comment: Fillable at [facility]: Insurance mandated [facility]acy[facility] Jolly Lee 03/26/20 1:33 PM documented in this encounter Plan of Treatment Upcoming Encounters Date Type Department Care Team (Late st Contact Info) Description 07/18/2024 1:00 PM EDT TH Visit (TeleHealth) [place] [phone] Malinda Christopher MD [facility] [place] [address] documented as of this encounter Goals Goal [...] on filedocumented in this encounter Care Teams Bicycle Subassembler Relationship Specialty Start Date End Date Valarie Phillips MD [address] [place] [address] PCP - General General Internal Medicine 09/06/17 documented as of this encounter
--- OUTSIDE RECORDS SUMMARY | 2024-04-14 02:12 | XMS_ITS | Encounter Summary ---
[place] [address] Care Team Providers Care Assembler Trim Name Role Phone Valarie Phillips MD Primary Care Provider Reason for Visit * Reason Comments Specialty Pharmacy Review Encounter Details Date Type Department Care Team (Late st Contact Info) Description 05/18/2020 Specialty [place] [address] Lary Mckinney, [facility] Social History Tobacco Use Types [...] encounter Progress Notes * Lary Mckinney - 05/18/2020 11:59 PM EST The [facility] has completed a benefits investigation for Janice Mahoney to review theireligibility to fill at [facility]. Per patient's medication list they are prescribed Humira and the medication is currently filled at the [facility]. documented in this encounter Plan of Treatment Upcoming Encounters Date Type Department Care Team (Late st Contact Info) Description 07/18/2024 1:00 PM EDT TH Visit (TeleHealth) [place] [address] Malinda Christopher MD [facility] [place] [address] documented as of this encounter Goals Goal Patient Goal Type Associated Problems Recent Progress Patient-Stated? Author [facility] Medication Compliance and Understanding Patient Facing Action Plan Lkaeisha Matos, [facility] Note: Achieve and maintain control of Crohn's symptoms as assessed by specialist every 3 to 6 months or more documented as of this encounter Visit Diagnoses Not on filedocumented in this encounter Care Teams Assembler Trim Relationship Specialty Start Date End Date Valarie Phillips MD [address] [place] [address] PCP - General General Internal Medicine 09/06/17 documented as of this encounter
--- OUTSIDE RECORDS SUMMARY | 2024-04-14 02:12 | XMS_ITS | Encounter Summary ---
Author Organization [facility] [place] [address] Care Team Providers Care Soap Tender Name Role Phone Valarie Phillips MD Primary Care Provider [phone] Reason for Visit * Reason Comments Medication Management Encounter Details Date Type Department Care Team (Late st Contact Info) Description 03/26/2020 Specialty Pharmacy Pharmacy at [facility] [place] [address] Sebel Hong [facility] Social History Tobacco Use Types Packs/Day Years [...] as of this encounter Progress Notes * Seble Carrington RPH - 03/26/2020 12:52 PM EST Clinical Management Plan: Refill Specialty Pharmacy Consultation; Seble Carrington Lacy Comprehensive Medication Management (CMM) Janice Malinda Denzel Ms. Janice Mahoney is a 60 y.o. (1960) female who was contacted in regard to a specialty medication refill reminder. Spoke with patient regarding Humira. A review of the medication therapy was performed. The medication was processed for refill as scheduled, but requires an updated Prior Authorization. The pharmacy team is working on the re-approval and will mail the prescription once a paid claim exists. All medication related questions and concerns were addressed. The specialty pharmacy staff will follow up with the patient 5-7 days prior to next refill. Was a change made to the Care Plan: no If yes, should the medication be held: No Assessment and Recommendations: Title Type of Medication Management: chronic disease management, targeted medication review Referred By: provider Recipient: beneficiary Provider: plan sponsor pharmacist Visit Type: [facility] Follow-up Method of Contact: by telephone Cognitive Ability: good Cognitive Impairment Status Verified this Year: no Allergies and Drug intolerance: Allergies Allergen Reactions ??? [place] Medication Reconciliation Discrepancies (compared to [facility] med list) -None New medications: no New medical conditions: no New allergies: no Adherence: Medication Adherence Patient reported X missed doses in the last month: 0 Any gaps in refill history greater than 2 weeks in the last 3 months: no Demonstrates understanding of importance of adherence: yes Informant: patient Reliability of informant: reliable Provider-estimated medication adherence level: 90-100% Reasons for non-adherence: no problems identified Adherence tools used: calendar, directed education Support network for adherence: healthcare provider Confirmed plan for next specialty medication refill: delivery by pharmacy Refills needed for supportive medications: not needed Are you experiencing any side effects from your medications? no Pt understands no changes to current drug regimen were made at the appointment and that [facility] is providing recommendations (summary located at top of note) for provider review and follow up. Seble Carrington RPH 03/26/20 12:53 PM documented in this encounter Plan of Treatment Upcoming Encounters Date Type Department Care Team (Late st Contact Info) Description 07/18/2024 1:00 PM EDT TH Visit (TeleHealth) [place] [address] Malinda Christopher MD [facility] [place] [address] documented as of this encounter Goals Goal Patient Goal Type Associated Problems Recent Progress Patient-Stated? Author [facility] Medication Compliance and Understanding Patient Facing Action Plan Laekisha Matos [facility] Note: Achieve and maintain control of Crohn's symptoms as assessed by specialist every 3 to 6 months or more documented as of this encounter Visit Diagnoses Not on filedocumented in this encounter Care Teams Soap Tender Relationship Specialty Start Date End Date Valarie Phillips MD [address] [place] [address] PCP - General General Internal Medicine 09/06/17 documented as of this encounter
--- OUTSIDE RECORDS SUMMARY | 2024-04-14 02:12 | XMS_ITS | Encounter Summary ---
Author Organization [facility] [place] [address] Care Team Providers Care Caser Up Name Role Phone Valarie Phillips MD Primary Care Provider [phone] Reason for Visit * Reason Comments Medication Refill Encounter Details Date Type Department Care Team (Late Contact Info) Description 05/02/2020 Refill [place] [phone] Fide Donnelly, ROMULO [facility] [place] [address] Social History Tobacco Use Types Packs/Day Years [...] PM EDT TH Visit (TeleHealth) [place] [phone] Malinda Christopher MD [facility] [place] [address] documented as of this encounter Goals Goal [...] on filedocumented in this encounter Care Teams Caser Up Relationship Specialty Start Date End Date Valarie Phillips MD [address] [place] [address] PCP - General General Internal Medicine 09/06/17 documented as of this encounter
--- OUTSIDE RECORDS SUMMARY | 2024-04-14 02:12 | XMS_ITS | Encounter Summary ---
[place] [address] Care Team Providers Care Roll Bucker Name Role Phone Valarie Phillips MD Primary Care Provider [phone] Encounter Details Date Type Department Care Team (Late Contact Info) Description 05/31/2021 Orders [place] [address] Malinda Christopher MD [facility] [place] [address] Crohn's disease of both small and large intestine with rectal bleeding Social History Tobacco Use Types Packs/Day Years [...] PM EDT TH Visit (TeleHealth) [place] [address] Malinda Christopher MD [facility] [place] [address] documented as of this encounter Goals Goal Patient Goal Type Associated Problems Recent Progress Patient-Stated? Author [facility] Medication Compliance and Understanding Patient Facing Action Plan Lakeisha Matos, [facility] Note: Achieve and maintain control of Crohn's symptoms as assessed by specialist every 3 to 6 months or more documented as of this encounter Visit Diagnoses Diagnosis Crohn's disease of both small and large intestine with rectal bleeding Regional enteritis of small intestine with large intestine documented in this encounter Care Teams Roll Bucker Relationship Specialty Start Date End Date Valarie Phillips MD [address] [place] [address] PCP - General General Internal Medicine 09/06/17 documented as of this encounter
--- OUTSIDE RECORDS SUMMARY | 2024-04-14 02:12 | XMS_ITS | Encounter Summary ---
[place] [address] Care Team Providers Care Broadcast Designer Name Role Phone Valarie Phillips MD Primary Care Provider [phone] Reason for Visit * Reason Onset Date Comments Medication Refill 04/02/2020 Encounter Details Date Type Department Care Team (Late st Contact Info) Description 04/02/2020 Ref[place] [address] Malinda Christopher MD [facility] [place] [address] Social History Tobacco Use Types Packs/Day Years [...] PM EDT TH Visit (TeleHealth) [place] [phone] Malinda Christopher MD [facility] [place] [address] documented as of this encounter Goals Goal Patient Goal Type Associated Problems Recent Progress Patient-Stated? Author [facility] Medication Compliance and Understanding Patient Facing Action Plan Lakeisha Matos, [facility] Note: Achieve and maintain control of Crohn's symptoms as assessed by specialist every 3 to 6 months or more documented as of this encounter Visit Diagnoses Not on filedocumented in this encounter Care Teams Broadcast Designer Relationship Specialty Start Date End Date Valarie Phillips MD [address] [place] [address] PCP - General General Internal Medicine 09/06/17 documented as of this encounter
--- OUTSIDE RECORDS SUMMARY | 2024-04-14 02:12 | XMS_ITS | Encounter Summary ---
Author Organization [facility] [place] [address] Care Team Providers Care Fisheries Director Name Role Phone Valarie Phillips MD Primary Care Provider [phone] Reason for Visit * Reason Comments Specialty Refill Management Encounter Details Date Type Department Care Team (Late st Contact Info) Description 08/28/2020 Specialty Pharmacy [place] [address] Gigi Almanzar CPHT Social History Tobacco Use [...] as of this encounter Progress Notes * Gigi Almanzar - 08/28/2020 9:29 AM EDT Clinical Management Plan: Refill Specialty [...] and Drug intolerance: Allergies Allergen Reactions ??? [place] Medication Reconciliation Discrepancies (compared to [facility] med list) No Specialty Pharmacy Refill Questionnaire Refill Questionnaire 08/28/2020 What is the name of the specialty medication you are refilling? Humira Are you taking any new medications? No Any new medical condition? No Any new allergies? No Any new side effects that are bothersome? No What date will you need this fill by? 09/07/2020 Adherence: Any missed doses? No Patient understands no changes to current drug regimen were made.. Gigi Almanzar 08/28/20 9:32 AM documented in this encounter Plan of Treatment Upcoming Encounters Date Type Department Care Team (Late st Contact Info) Description 07/18/2024 1:00 PM EDT TH Visit (TeleHealth) [place] [address] Malinda Christopher MD [facility] [place] [address] documented as of this encounter Goals Goal Patient Goal Type Associated Problems Recent Progress Patient-Stated? Author [facility] Medication Compliance and Understanding Patient Facing Action Plan Lakeisha Matos, [facility] Note: Achieve and maintain control of Crohn's symptoms as assessed by specialist every 3 to 6 months or more documented as of this encounter Visit Diagnoses Not on filedocumented in this encounter Care Teams Fisheries Director Relationship Specialty Start Date End Date Valarie Phillips MD [address] [place] [address] PCP - General General Internal Medicine 09/06/17 documented as of this encounter
--- OUTSIDE RECORDS SUMMARY | 2024-04-14 02:12 | XMS_ITS | Encounter Summary ---
[place] [address] Care Team Providers Care Manager Apple Name Role Phone Valarie Phillips MD Primary Care Provider [phone] Reason for Visit * Reason Comments Medication Management Specialty Refill Management Encounter Details Date Type Department Care Team (Late st Contact Info) Description 07/24/2020 Specialty [place] [phone] Lucio Jones [facility] Social History Tobacco Use Types Packs/Day [...] this encounter Progress Notes * Lucio Jones [facility] - 07/24/2020 10:44 AM EDT Clinical Management Plan: Refill Specialty Pharmacy Consultation; Lucio Jones [facility] Comprehensive Medication Management (CMM) Janice Petty Denzel Ms. Janice Mahoney is a 60 y.o. (1960) female who was contacted in regard to a specialty medication refill reminder. Contact made with patient regarding Humira. A review of the medication therapy was performed. The medication will be refilled as scheduled, and all medication related questions and concerns were addressed. The specialty pharmacy staff will follow up with the patient 5-7 days prior to next refill. Was a change made to the Care Plan: No Allergies and Drug intolerance: Allergies Allergen Reactions ??? [place] Medication Reconciliation Discrepancies (compared to [facility] med list) No Specialty Pharmacy Refill Questionnaire Refill Questionnaire 07/24/2020 What is the name of the specialty medication you are refilling? Humira Are you taking any new medications? No Any new medical condition? No Any new allergies? No Any new side effects that are bothersome? No What date will you need this fill by? 07/31/2020 Adherence: Any missed doses? No Patient understands no changes to current drug regimen were made.. Lucio Jones RPH 07/24/20 10:46 AM documented in this encounter Plan of Treatment Upcoming Encounters Date Type Department Care Team (Late st Contact Info) Description 07/18/2024 1:00 PM EDT TH Visit (TeleHealth) [place] [address] Malinda Christopher MD [facility] [place] [address] documented as of this encounter Goals Goal Patient Goal Type Associated Problems Recent Progress Patient-Stated? Author [facility] Medication Compliance and Understanding Patient Facing Action Plan Lakeisha Matos [facility] Note: Achieve and maintain control of Crohn's symptoms as assessed by specialist every 3 to 6 months or more documented as of this encounter Visit Diagnoses Not on filedocumented in this encounter Care Teams Manager Apple Relationship Specialty Start Date End Date Valarie Phillips MD [address] [place] [address] PCP - General General Internal Medicine 09/06/17 documented as of this encounter
--- OUTSIDE RECORDS SUMMARY | 2024-04-14 02:12 | XMS_ITS | Encounter Summary ---
Author Organization [facility] [place] [address] Care Team Providers Care [employer] Teacher Name Role Phone Valarie Phillips MD Primary Care Provider [phone] Encounter Details Date Type Department Care Team (Latest Contact Info) Description 04/26/2020 4:25 PM EST Laboratory Appointment Lab [address] [place] [phone] Crohn's disease of colon with complication Social History Tobacco Use Types Packs/Day Years [...] PM EDT TH Visit (TeleHealth) [place] [phone] Malinda Christopher MD [facility] [place] [address] documented as of this encounter Goals Goal Patient Goal Type Associated Problems Recent Progress Patient-Stated? Author [facility] Medication Compliance and Understanding Patient Facing Action Plan Lakeisha Matos, [facility] Note: Achieve and maintain control of Crohn's symptoms as assessed by specialist every 3 to 6 months or more documented as of this encounter Procedures Procedure Name Priority Date/Time Associated Diagnosis Comments HC C-REACTIVE PROTEIN Routine 04/26/2020 4:35 PM EST Crohn's disease of colon with complication HEMOGRAM Routine 04/26/2020 4:35 PM EST Crohn's disease of colon with complication DIFFERENTIAL, AUTOMATED Routine 04/26/2020 4:35 PM EST Crohn's disease of colon with complication HC CBC,PLT & AUTO DIFF Routine 04/26/2020 4:35 PM EST Crohn's disease of colon with complication HC VENIPUNCTURE Routine 04/26/2020 4:35 PM EST Crohn's disease of colon with complication documented in this encounter Results * Differential, Automated (04/26/2020 4:35 PM EST) Neutrophil % 71.7 % [facility] Neutrophil Absolute 5.95 1.70 - 6.10 x10(3)/[facility] Lymph % 21.3 % [facility] Lymphocytes Abs 1.8 0.9 - 3.2 x10(3)/[facility] Monocyte % 5.8 % [facility] Monocyte Abs 0.5 0.3 - 0.9 x10(3)/[facility] Eos % 0.6 % [facility] Eosinophils Abs 0.0 0.0 - 0.4 x10(3)/[facility] Basophil % 0.4 % [facility] Baso Absolute 0.0 0.0 - 0.1 x10(3)/[facility] Immature Gran % 0.20 % [facility] Comment: Immature granulocytes(IG's)percentage and absolute count will include metamyelocytes, myelocytes, and promyelocytes. Blood smears from CBCs yielding IG's will be scanned manually for concordance. If this scan disagrees with the automated IG or if promyelocytes are noted, a manual differential will be performed. Immature Gran Absolute 0.02 0.00 - 0.04 x10(3)/mcL [facility] Blood specimen (specimen) 04/26/2020 4:35 PM EST 04/26/2020 4:39 PM EST Narrative Resulting Agency Comment Spec In Lab L Tai Christopher MD HEMATOLOGY ORDERABLE S [facility] [place] [address] * (ABNORMAL) Hemogram (04/26/2020 4:35 PM EST) White Blood Cell 8.3 4.0 - 9.5 x10(3)/mc L [facility] Red Blood Cell 3.86(L) 4.00 - 5.21 x10(6)/mc L [facility] Hemoglobin 12.0 11.7 - 15.5 gm/dL [facility] Hematocrit 35.8 35.7 - 45.8 % [facility] Mean Cell Volume 92.7 82.6 - 94.4 fL [facility] Mean Cell Hemoglobin 31.1 27.1 - 32.0 pg [facility] Mean Cell Hemoglobin Concentration 33.5 31.7 - 35.0 gm/dL [facility] Platelet 229 145 - 357 x10(3)/ L [facility] RDW Standard Deviation 41.0 37.0 - 46.0 [facility] RDW coefficient of variation 12.0 11.5 - 14.1 % [facility] Mean Platelet Volume 8.9 7.6 - 12.9 [facility] NRBC% auto 0.0 % [facility] NRBC Absolute 0.000 0.000 - 0.000 x10(3)/mc L [facility] Blood specimen (specimen) 04/26/2020 4:35 PM EST 04/26/2020 4:39 PM EST Narrative Resulting Agency Comment Spec In Lab L Tai Christopher MD HEMATOLOGY ORDERABLE S Performing Organization Address [facility] Co de Phone Number [facility] [place] [address] * CRP, acute inflammation (04/26/2020 4:35 PM EST) C-Reactive Protein 4.8 <=4.9 mg/L [facility] Blood specimen (specimen) 04/26/2020 4:35 PM EST 04/26/2020 4:39 PM EST Narrative Resulting Agency Comment Spec In Lab L Tai Christopher MD CHEMISTRY ORDERABLES Performing Organization Address [facility] Co id Phone Number [facility] [place] [address] * Hepatic Function Panel (04/26/2020 4:35 PM EST) Protein, Total 6.5 6.1 - 8.0 gm/dL [facility] Albumin 4.1 3.2 - 5.2 gm/dL [facility] Aspartate Aminotransferase 24 0 - 30 unit/L [facility] Alanine Aminotransferase 19 0 - 30 unit/L [facility] Alkaline Phosphatase 77 35 - 105 unit/L [facility] Bilirubin, Total 0.4 0.2 - 1.3 mg/dL [facility] Bilirubin, Direct 0.1 0.0 - 0.3 mg/dL [facility] Blood specimen (specimen) 04/26/2020 4:35 PM EST 04/26/2020 4:39 PM EST Narrative Resulting Agency Comment Spec In Lab L Tai Christopher MD CHEMISTRY ORDERABLES Performing Organization Address [facility] Co de Phone Number [facility] [place] [address] documented in this encounter Visit Diagnoses Diagnosis Crohn's disease of colon with complication documented in this encounter Care Teams [employer] Teacher Relationship Specialty Start Date End Date Alan, Valarie E, MD [address] [place] [address] PCP - General General Internal Medicine 09/06/17 documented as of this encounter
--- OUTSIDE RECORDS SUMMARY | 2024-04-14 02:12 | XMS_ITS | Encounter Summary ---
Author Organization [facility] Address [facility] [place] [address] Care Team Providers Care Subject Scientific Research Name Role Phone Valarie Phillips MD Primary Care Provider [phone] Reason for Visit * Reason Comments Follow-up Encounter Details Date Type Department Care Team (Latest Contact Info) Description 04/16/2020 10:00 AM EST TH Visit (TeleHealth) [place] [address] Flakita Boggs MD [facility] [address] [facility] [place] [address] Drug intolerance; Need for prophylactic vaccination against viral disease Social History Tobacco Use Types Packs/Day Years [...] as of this encounter Progress Notes * Dee Dee Oliveros MD - 04/16/2020 10:00 AM EST CC: follow up HPI: Janice Mahoney is a 60 y.o. female with PMH Crohn's, protein C deficiency presenting for followup of drug allergy. Patient had an in office challenge to polyethylene glycol in October, which she passed. Since then, she had used miralax as a laxative twice without any adverse effects. However, in February she was required to drink a full bottle in preparation for a colonoscopy. Within 30 minutes of drinking half of it, she vomited the contents and noted a flushed face as well as two hives on her face. She denied any swelling, SOB or wheezing. She took two Benadryl tablets and the symptoms resolved within 45 minutes. Shortly thereafter, she tried taking Docolax. She noted flushing, but no other symptoms. Patient has also tried Suprep, which she vomited up as well. She is wondering if it's more an intolerance to the volume of liquid that is causing her nausea and vomiting. Aside from that, patient notes that her Crohn's disease is flaring up right now. Specifically, she has LLQ with bowel movements. No there medical changes. She feels well and denies any itching, rash,recent cold or flu, chest pain, shortness of breath, nausea, vomiting. She is not on any new medications since her last visit. Patient would like to continue to take Miralax as it is helpful in the context of her Crohn's. She also at some point is hoping to get the COVID vaccine, which contained PEG. ROS: per HPI, otherwise negative. Patient Active Problem List Diagnosis Code ??? Anal pain K62.89 ??? Clotting disorder D68.9 ??? Diverticulitis of large intestine without perforation or abscess without bleeding K57.32 ??? Gallstones K80.20 ??? Colonic Crohn's with mid small bowel segment K50.119 Past Medical History: Diagnosis Date ??? Diverticulitis ??? Hemorrhagic disorder protein C deficiency No outpatient medications have been marked as taking for the 04/16/20 encounter (Appointment) with Flakita Boggs MD. There were no vitals taken for this visit. Constitutional: awake, alert, no acute distress Head: normocephalic, atraumatic Eyes: conjunctiva without injection or icterus, no discharge appreciated, no edema of eyelids ENT: normal pinnae, no stridor, quality of voice is normal without nasal quality or hoarseness Neck: no visible goiter or enlargement of neck, symmetric Resp: no increased work of breathing observed, no coughing observed, speaking in full sentences without difficulty, normal rate of breathing, no accessory muscle use CVS: normal color and perfusion, no apparent cyanosis Extremities: no apparent joint deformity observed, normal appearing muscle bulk, normal and symmetric ROM of visible extremities Skin: no visible rash or lesions, normal color, no mottling Neuro: EOMI, no dysarthria Psych: normal grooming, appropriate mood and affect, normal volume/quantity/tone of speech, normal thought process and content ASSESSMENT/PLAN: 60 y.o. female with negative challenge to polyethylene glycol in October 2019, now presenting with recent flushing, vomiting and hives after ingesting a large quantity of Miralax in February 2020. Discussed with patient that the likely palomino of her having a true allergy (vs intolerance) to PEG is low, however given that she would like to continue to use it and would like to get the COVID vaccine eventually, it would be worthwhile to do another monitored challenge to PEG. Patient would prefer to do this at her PCP's so that she doesn't have to travel to [facility] [place]. We will recommend that patient be given 10% of usual dose with close observation for any allergic reaction type symptoms such as hives, rash, flushing, nausea, vomiting, wheezing, SOB, swelling. If patient does not react after 30 minutes, follow with ingestion of a normal dose of Miralax and once again observe for the above symptoms for an additional 30 minutes. All of patient's questions were answered today in clinic. Should she have any further questions or concerns she will reach out to us again. Return to office as needed. Dee Dee Oliveros MD ENT PGY-2 * Flakita Boggs MD - 04/16/2020 10:00 AM EST I have seen and examined the patient and reviewed the resident's above history and physical exam and I agree with the details as written. The assessment and plan were formulated in discussion with meand I agree with them as documented. Will also add: HPI: pt also reported itching of her head. States she took dulcolax at 4pm, the miralax at 6pm, andabout 1hr after miralax the sx began and improved within about 30min of benadryl A/P: 60 yo F with itching, limited hives, vomiting 1hr after miralax prep after previously passing a challenge to miralax in allergy office. Has also had flushing and dulcolax and vomiting with otherbowel preps. The patient's reaction sounds low risk, but not without risk. Her symptoms did not begin until an hour after she took a very large quantity of MiraLAX. Symptoms resolved easily with Benadryl within 30 minutes and sounded mild. She has demonstrated intolerance to other bowel preps that do not contain PEG. Typically patients with anaphylaxis to PEG will have reactions to a much smaller amount and these would be severe anaphylactic reactions and be within minutes of taking it. However, I cannot rule out that she will have a more severe reaction if she is exposed to this again. I do recommend next exposure to PEG be in a monitored setting, not to try it at home. This recommendation is primarily based on the report of itching and hives, not flushing or GI symptoms. Recommendthat if it is more convenient for this to be done at her primary care doctor's office she can certainly have this done there if they felt comfortable monitoring her and treating her if she did have a reaction. This is simply to be cautious due to the small possibility of a reaction. Current COVID vaccines have a very small amount of PEG so there is a theoretical risk of reacting if she has developed a new allergy to PEG, but I think the possibility she has this allergy is low. We talked about how a challenge to PEG is simply exposing her to PEG and if she is going to do this, getting the COVID vaccine would itself be a form of a challenge, albeit one with the added bonus of a therapeutic effect. If she can get the COVID vaccine in a monitored setting, I think it would be OK because her symptoms as described above sound very mild and may not reflect a true allergy. Unfortunately we do not have access to it so can't do that for her in Allergy. The important part is that she is under monitoring if she is exposed to PEG again not that she is doing it at home by herself in the event she has a more severe reaction, though I think this is unlikely. Patient is going to talk to her primary care doctor about the possibility of doing a challenge to MiraLAX in the office. Suggested the goal would be to have her take a full dose that someone would normally take for constipation without a reaction. If she is able to tolerate this amount in the doctor's office then I would not expect her to have a reaction to this at home or to the polyethylene glycol component of the Covid vaccine. We often do a 10% dose first, then the remainder of a full dose for challenges. If PCP not comfortable with that I am happy to do it here. Of note, Covid vaccine reactions may not necessarily be due to polyethylene glycol and the exact mechanism is not fully understood. Thus if she tolerates polyethylene glycol I cannot rule out that she would not react to the Covid vaccine for other reasons. RTO PEG ODC if desired Flakita Boggs MD documented in this encounter Plan of Treatment Upcoming Encounters Date Type Department Care Team (Late st Contact Info) Description 07/18/2024 1:00 PM EDT TH Visit (TeleHealth) [place] [address] Malinda Christopher MD [facility] [place] [address] documented as of this encounter Goals Goal Patient Goal Type Associated Problems Recent Progress Patient-Stated? Author Home Medication Compliance and Understanding Patient Facing Action Plan Lakeisha Matos, [facility] Note: Achieve and maintain control of Crohn's symptoms as assessed by specialist every 3 to 6 months or more documented as of this encounter Visit Diagnoses Diagnosis Drug intolerance Other drug allergy Need for prophylactic vaccination against viral disease Need for prophylactic vaccination and inoculation against other viral diseases documented in this encounter Care Teams Subject Scientific Research Relationship Specialty Start Date End Date Valarie Phillips MD [address] [place] [address] PCP - General General Internal Medicine 09/06/17 documented as of this encounter
--- OUTSIDE RECORDS SUMMARY | 2024-04-14 02:12 | XMS_ITS | Encounter Summary ---
[place] [address] Care Team Providers Care Voice Pathologist Name Role Phone Valarie Phillips MD Primary Care Provider [phone] Encounter Details Date Type Department Care Team (Late st Contact Info) Description 02/23/2020 Telephone [place] [phone] Madi Benitez Social History Tobacco Use Types Packs/Day Years [...] encounter Miscellaneous Notes * Telephone Encounter - Madi Benitez - 02/23/2020 1:13 PM EST Outbound call to patient. Reschedule procedure to 02/28/20. Sending prep instructions through [facility]. Booked in person clinic fuv with Ashwin June 2020. * Telephone Encounter - Madi Benitez - 02/23/2020 1:13 PM EST ----- Message from Diaz Mayo RN sent at 02/23/2020 10:30 AM EST ----- Regarding: FW: Appointment Follow-Up Question Contact: ----- Message ----- From: Janice Mahoney Sent: 02/23/2020 10:09 AM EST To: [facility] Nurse Subject: RE: Appointment Follow-Up Question I would be open to seeing one of his colleagues. I have had my previous one with Dr. Moe Smith.But getting it in before the end of the year is important so I would take any available. Janice documented in this encounter Plan of Treatment Upcoming Encounters Date Type Department Care Team (Late st Contact Info) Description 07/18/2024 1:00 PM EDT TH Visit (TeleHealth) [place] [address] Malinda Christopher MD [facility] [place] [address] documented as of this encounter Goals Goal Patient Goal Type Associated Problems Recent Progress Patient-Stated? Author [facility] Medication Compliance and Understanding Patient Facing Action Plan Lakeisha Matos, [facility] Note: Achieve and maintain control of Crohn's symptoms as assessed by specialist every 3 to 6 months or more documented as of this encounter Visit Diagnoses Not on filedocumented in this encounter Care Teams Voice Pathologist Relationship Specialty Start Date End Date Valarie Phillips MD [address] [place] [address] PCP - General General Internal Medicine 09/06/17 documented as of this encounter
--- OUTSIDE RECORDS SUMMARY | 2024-04-14 02:12 | XMS_ITS | Encounter Summary ---
Author Organization [facility] [place] [address] Care Team Providers Care Wire Products Inspector Name Role Phone Valarie Phillips MD Primary Care Provider [phone] Encounter Details Date Type Department Care Team (Late Contact Info) Description 04/16/2021 Orders [place] [phone] Malinda Christopher MD [facility] [place] [address] Colonic Crohn's with mid small bowel segment [...] PM EDT TH Visit (TeleHealth) [place] [address] Malinda Christopher MD [facility] [place] [address] documented as of this encounter Goals Goal Patient Goal Type Associated Problems Recent Progress Patient-Stated? Author [facility] Medication Compliance and Understanding Patient Facing Action Plan Lakeisha Matos, [facility] Note: Achieve and maintain control of Crohn's symptoms as assessed by specialist every 3 to 6 months or more documented as of this encounter Visit Diagnoses Diagnosis Colonic Crohn's with mid small bowel segment documented in this encounter Care Teams Wire Products Inspector Relationship Specialty Start Date End Date Valarie Phillips MD [address] [place] [address] PCP - General General Internal Medicine 09/06/17 documented as of this encounter
--- OUTSIDE RECORDS SUMMARY | 2024-04-14 02:12 | XMS_ITS | Encounter Summary ---
Author Organization [facility] [place] [address] Care Team Providers Care Analytical Consultant Name Role Phone Valarie Phillips MD Primary Care Provider [phone] Encounter Details Date Type Department Care Team (Late st Contact Info) Description 10/02/2020 11:00 AM EDT Office Visit [place] [address] Malinda Christopher MD [facility] [place] [address] Crohn's disease of both small and large [...] Sign Reading Time Taken Comments Blood Pressure 143/65 10/02/2020 10:53 AM EDT Pulse 82 10/02/2020 10:53 AM EDT Temperature - - Respiratory Rate - - Oxygen Saturation - - Inhaled Oxygen Concentration - - Weight 62.2 kg (137 lb 3.2 oz) 10/02/2020 10:53 AM EDT Height 152.4 cm (5') 10/02/2020 10:53 AM EDT Body Mass Index 26.8 10/02/2020 10:53 AM EDT documented in this encounter Patient Instructions * Patient Instructions* Malinda Christopher MD - 10/02/2020 11:00 AM EDT 1. Continue Humira 40 mg weekly 2. Routine labs today along. Assuming unremarkable, should check again in 4-6 mos 3 Also check adalimumab concentration today. 4. For constipation, continue magnesium. 5. Next visit, discuss repeat MRE to evaluate mid small bowel Crohn's 6. Repeat colonoscopy ~04/2022 7. Follow-up via telehealth or in the office in approximately 8-10 months. documented in this encounter Progress Notes * Malinda Christopher MD - 10/02/2020 11:00 AM EDT GASTROENTEROLOGY PROGRAM - ESTABLISHED PATIENT VISIT Chief Complaint: Janice Mahoney is a 60 y[address] of Dr[address] Phillips here for follow- up of Crohn's disease. Patient Active Problem List Diagnosis ??? Colonic Crohn's with mid small bowel segment Overview Note: ?? Location: Colonic and mid small bowel, Behavior: Inflammatory perianal disease in form of skin tags ?? Symptoms: worsening hemorrhoids April 2017 undergoes excisional hemorrhoidectomy that did not heal ?? 10/02/17: Colonoscopy ([facility] Large perianal inflamed skin tags ??found on [...] transmural enhancement, however, no mesenteric inflammation. ?? [place] 04/2020 - No active Crohn's apart from mild erythema in sigmoid that was inactive on bx. Mild narrowing of the sigmoid colon related to diverticular dx, less likely Crohn's. 3 mm adenomas descending colon. Nl TI. Treatments: ?? Started Humira end of 10/2017, 12/17/17 [place] Humira level 12.8, no antibodies on every two week Humira . Repeat [place] Spring 2019 with Ab and low drug level. Repeat Prometheus with level 20 and no Ab. Health Maintenance: ?? 10/19/17 TB - Quant gold neg ?? 10/19/17 Hep B negative ?? 01/2018 Shingrix first dose. Second Shingrix July 2018. ?? 01/2018 Pneumococcal (presumed Pneumovax) ??? Anal pain ??? Clotting disorder Overview Note: Protein C deficiency ??? Diverticulitis of large intestine without perforation or abscess without bleeding ??? Gallstones Interval history: Ms. Mahoney comes today to follow-up Crohn's disease. Her accompanies here. Last visit was this past May. Last colo in Apr 2020 - no active Crohn's disease, significant diverticular disease primarily in the sigmoid colon, and a normal terminal ileum. Continues to take Humira weekly. No adverse effects. Constipation has completely resolved with magnesium. Moving her bowels once daily. Never tried Miralax or the FODMAP diet. Continues to some gaseousness but not very bothersome. No N/V, bleeding, and pain. Moderna vaccination earlier this year. REVIEW OF SYSTEMS Notable for the gastrointestinal symptoms as described above. There has been no anorexia, fever, orunintended weight change; no red or painful eyes; no oral ulcers, chronic oral lesions, or chronic sore throat. There is no cough, shortness of breath, palpitations, or chest pain. There is no dysuria, urinary incontinence. No chronic joint pains or history of inflammatory arthritis. There is no recent skin rash. The patient denies psychiatric problems. There are no neurologic symptoms or easy bruising or bleeding. PHYSICAL EXAMINATION: Patient Vitals for the past 24 hrs: Pulse BP 10/02/20 1053 82 143/65 Wt Readings from Last 3 Encounters: 10/02/20 62.2 kg (137 lb 3.2 oz) 04/26/20 61.2 kg (135 lb) 12/19/19 63.4 kg (139 lb 12.8 oz) Body mass index is 26.8 kg/m??. GEN: Healthy-appearing in no acute distress. Appears stated age. Cooperative and answers questions appropriately. Lab Results Component Value Date WBC 8.3 04/26/2020 RBC 3.86 (L) 04/26/2020 HGB 12.0 04/26/2020 HCT 35.8 04/26/2020 MCV 92.7 04/26/2020 MCH 31.1 04/26/2020 MCHC 33.5 04/26/2020 PLATELET 229 04/26/2020 RDWCV 12.0 04/26/2020 Lab Results Component Value Date NA 140 05/16/2019 K 4.3 05/16/2019 CL 102 05/16/2019 CO2 27 05/16/2019 BUN 7 (L) 05/16/2019 CREATININE 0.56 (L) 05/16/2019 GLUCOSE 99 05/16/2019 CALCIUM 9.5 05/16/2019 ESTGFR 101 05/16/2019 Lab Results Component Value Date ALT 19 04/26/2020 AST 24 04/26/2020 ALKPHOS 77 04/26/2020 BILITOT 0.4 04/26/2020 BILIDIR 0.1 04/26/2020 ALBUMIN 4.1 04/26/2020 PROT 6.5 04/26/2020 Last B12 2019 - 516 ASSESSMENT AND RECOMMENDATIONS: Ms. Mahoney is doing very well. Discussed disconnect between symptoms and natural history of Crohn's disease. Suspect constipation and gaseousness not directly related to Crohn's. Conversely, will need to monitor disease activity - sully of mid small bowel - objectively as may not present symtomaticallyuntil strictured. Therefore, would consider repeat MRE at next visit. Not due for colonoscopy until 04/2022. Should continue Humira. Will recheck ADA [place] concentration today along with routine labs. Recommendations: 1. Continue Humira 40 mg weekly 2. Routine labs today along. Assuming unremarkable, should check again in 4-6 mos 3 Also check adalimumab concentration today. 4. For constipation, continue magnesium. 5. Next visit, discuss repeat MRE to evaluate mid small bowel Crohn's 6. Repeat colonoscopy ~04/2022 7. Follow-up via telehealth or in the office in approximately 8-10 months. I spent 30 min today reviewing the chart preparing for this visit, counseling the patient [id number] on the issues outlined above, and documenting an implementing the plan. Omar Christopher MD Lead Sustainability Specialisttravel sales consultant Co-Director, [facility] Section of Gastroenterology [place] [address] documented in this encounter Plan of Treatment Upcoming Encounters Date Type Department Care Team (Late st Contact Info) Description 07/18/2024 1:00 PM EDT TH Visit (TeleHealth) [place] [address] Malinda Christopher MD [facility] [place] [address] documented as of this encounter Goals Goal Patient Goal Type Associated Problems Recent Progress Patient-Stated? Author [facility] Medication Compliance and Understanding Patient Facing Action Plan Lakeisha Matos, [facility] Note: Achieve and maintain control of Crohn's symptoms as assessed by specialist every 3 to 6 months or more documented as of this encounter Procedures Procedure Name Priority Date/Time Associated Diagnosis Comments HC PCH ADALIMUMAB QUANT Routine 10/02/2020 11:46 AM EDT Crohn's disease of both small and large intestine with rectal bleeding HC C-REACTIVE PROTEIN Routine 10/02/2020 11:46 AM EDT Crohn's disease of both small and large intestine with rectal bleeding Colonic Crohn's with mid small bowel segment SCAN, PERIPHERAL BLOOD Routine 10/02/2020 11:46 AM EDT HEMOGRAM Routine 10/02/2020 11:46 AM EDT Crohn's disease of both small and large intestine with rectal bleeding Colonic Crohn's with mid small bowel segment DIFFERENTIAL, AUTOMATED Routine 10/02/2020 11:46 AM EDT Crohn's disease of both small and large intestine with rectal bleeding Colonic Crohn's with mid small bowel segment HC CBC,PLT & AUTO DIFF Routine 10/02/2020 11:46 AM EDT Crohn's disease of both small and large intestine with rectal bleeding Colonic Crohn's with mid small bowel segment HC THYROID STIMULATING HORMONE, SERUM Routine 10/02/2020 11:46 AM EDT Crohn's disease of both small and large intestine with rectal bleeding HEPATIC FUNCTION PANEL Routine 10/02/2020 11:46 AM EDT Crohn's disease of both small and large intestine with rectal bleeding Colonic Crohn's with mid small bowel segment documented in this encounter Results * Scan, Peripheral Blood (10/02/2020 11:46 AM EDT) Plat estimate Normal [facility] RBC Morphology Normal [facility] Blood 10/02/2020 11:4 6 AM EDT 10/02/2020 12:18 PM EDT Narrative Resulting Agency Comment Spec In Lab L Tai Christopher MD HEMATOLOGY ORDERABLE S [facility] [place] [address] * Differential, Automated (10/02/2020 11:46 AM EDT) Neutrophil % 42.3 % [facility] Neutrophil Absolute 2.66 1.70 - 6.10 x10(3)/[facility] Lymph % 43.9 % [facility] Lymphocytes Abs 2.8 0.9 - 3.2 x10(3)/[facility] Monocyte % 9.7 % [facility] Monocyte Abs 0.6 0.3 - 0.9 x10(3)/[facility] Eos % 2.9 % [facility] Eosinophils Abs 0.2 0.0 - 0.4 x10(3)/[facility] Basophil % 1.0 % [facility] Baso Absolute 0.1 0.0 - 0.1 x10(3)/[facility] Immature Gran % 0.20 % [facility] Comment: Immature granulocytes(IG's)percentage and absolute count will include metamyelocytes, myelocytes, and promyelocytes. Blood smears from CBCs yielding IG's will be scanned manually for concordance. If this scan disagrees with the automated IG or if promyelocytes are noted, a manual differential will be performed. Immature Gran Absolute 0.01 0.00 - 0.04 x10(3)/[facility] Blood 10/02/2020 11:4 6 AM EDT 10/02/2020 12:18 PM EDT Narrative Resulting Agency Comment Spec In Lab L Tai Christopher MD HEMATOLOGY ORDERABLE S Performing Organization Address City/State/[facility] Co de Phone Number [facility] [place] [address] * Hemogram (10/02/2020 11:46 AM EDT) White Blood Cell 6.3 4.0 - 9.5 x10(3)/[facility] Red Blood Cell 4.24 4.00 - 5.21 x10(6)/[facility] Hemoglobin 12.8 11.7 - 15.5 gm/dL [facility] Hematocrit 39.1 35.7 - 45.8 % [facility] Mean Cell Volume 92.2 82.6 - 94.4 fL [facility] Mean Cell Hemoglobin 30.2 27.1 - 32.0 pg [facility] Mean Cell Hemoglobin Concentration 32.7 31.7 - 35.0 gm/dL [facility] Platelet 248 145 - 357 x10(3)/[facility] RDW Standard Deviation 41.4 37.0 - 46.0 fL [facility] RDW coefficient of variation 12.2 11.5 - 14.1 % [facility] Mean Platelet Volume 8.8 7.6 - 12.9 fL [facility] NRBC% auto 0.0 % [facility] NRBC Absolute 0.000 0.000 - 0.000 x10(3)/mcL [facility] Blood 10/02/2020 11:4 6 AM EDT 10/02/2020 12:18 PM EDT Narrative Resulting Agency Comment Spec In Lab L Tai Christopher MD HEMATOLOGY ORDERABLE S Performing Organization Address [facility] Co de Phone Number [facility] [place] [address] * Hepatic Function Panel (10/02/2020 11:46 AM EDT) Protein, Total 7.3 6.1 - 8.0 gm/dL [facility] Albumin 4.6 3.2 - 5.2 gm/dL [facility] Aspartate Aminotransferase 20 0 - 30 unit/L [facility] Alanine Aminotransferase 20 0 - 30 unit/L [facility] Alkaline Phosphatase 78 35 - 105 unit/L [facility] Bilirubin, Total 0.3 0.2 - 1.3 mg/dL [facility] Bilirubin, Direct 0.1 0.0 - 0.3 mg/dL [facility] Blood 10/02/2020 11:4 6 AM EDT 10/02/2020 12:18 PM EDT Narrative Resulting Agency Comment Spec In Lab L Tai Christopher MD CHEMISTRY ORDERABLES Performing Organization Address [facility] Co de Phone Number [facility] [place] [address] * CRP, acute inflammation (10/02/2020 11:46 AM EDT) C-Reactive Protein <3.0 <=4.9 mg/L [facility] Blood 10/02/2020 11:4 6 AM EDT 10/02/2020 12:18 PM EDT Narrative Resulting Agency Comment Spec In Lab L Tai Christopher MD CHEMISTRY ORDERABLES Performing Organization Address [facility]/ZIP Co de Phone Number [facility] [place] [address] * Adalimumab Quant with Reflex to Antibody (10/02/2020 11:46 AM EDT) Adalimumab Level (JULY) 21.8 mcg/mL [facility] Comment: For clinical assessment of response to therapy, adalimumab should be measured at trough. When adalimumab trough concentrations are greater than 8.0 mcg/mL, clinically relevant [id number] are unlikely and reflex testing will not be performed. REFERENCE VALUE Limit of Quantitation = 0.8 mcg/mL ADDITIONAL INFORMATION This test was developed and its performance characteristics determined by [facility] in a manner consistent with CLIA requirements. This test has not been cleared or approved by the U.S. Food and Drug Administration. Test Performed by: [facility] [place] [address] Edging Machine Feeder: Fermin Gordillo M.D. Ph.D.; CLIA# [id number] Blood 10/02/2020 11:4 6 AM EDT 10/02/2020 4:38 PM EDT Narrative Resulting Agency Comment Spec In Lab L Tai Christopher MD LAB SEND OUT ORDERAB LES [facility] [place] [address] * TSH (10/02/2020 11:46 AM EDT) Thyroid Stimulating Hormone 2.24 0.27 - 4.20 mcIU/mL [facility] Comment: Reference Interval (mcIU/mL): Females: ??First Trimester: 0.23-3.88 ??Second Trimester: 0.22-3.90 ??Third Trimester: 0.44-4.66 Blood 10/02/2020 11:4 6 AM EDT 10/02/2020 12:18 PM EDT Narrative Resulting Agency Comment Spec In Lab L Tai Christopher MD CHEMISTRY ORDERABLES [facility] [place] [address] documented in this encounter Visit Diagnoses Diagnosis Crohn's disease of both small and large intestine with rectal bleeding Regional enteritis of small intestine with large intestine Colonic Crohn's with mid small bowel segment documented in this encounter Care Teams Analytical Consultant Relationship Specialty Start Date End Date Valarie Phillips MD [address] [facility] [address] PCP - General General Internal Medicine 09/06/17 documented as of this encounter
--- OUTSIDE RECORDS SUMMARY | 2024-04-14 02:12 | XMS_ITS | Encounter Summary ---
Author Organization [facility] [place] [address] Care Team Providers Care Assistant Professor Of Chemistry Name Role Phone Valarie Phillips MD Primary Care Provider [phone] Reason for Visit * Reason Comments Medication Management Medication Refill Encounter Details Date Type Department Care Team (Late st Contact Info) Description 02/24/2020 Specialty [place] [address] Frannie Araya [facility] Social History Tobacco [...] Progress Notes * Frannie Araya RPH - 02/24/2020 8:55 AM EST Clinical Management Plan: Refill Specialty Pharmacy Consultation; Frannie Araya RPH Comprehensive Medication Management (CMM) Janice Petty Dnezel Ms. Janice Mahoney is a 59 y.o. (1960) female who was contacted in regard to a specialty medication refill reminder. Spoke with patient regarding Humira. A review of the medication therapy was performed. The medication will be Refilled as scheduled, once new prescription is received from provider. All medication related questions and concerns were addressed. The specialty pharmacy staff willfollow up with the patient 5-7 days prior to next refill. Was a change made to the Care Plan: no If yes, should the medication be held: No Assessment and Recommendations: Title Type of Medication Management: chronic disease management, targeted medication review Referred By: provider Recipient: beneficiary Provider: plan sponsor pharmacist Visit Type: [facility] Follow-up Method of Contact: by telephone Cognitive Ability: good Cognitive Impairment Status Verified this Year: no Allergies and Drug intolerance: Allergies Allergen Reactions ??? [place] Medication Reconciliation Discrepancies (compared to [place] [facility] [...] were made at the appointment and that [facility] is providing recommendations (summary located at top of note) for provider review and follow up. Frannie Araya RPH 02/24/20 8:57 AM documented in this encounter Plan of Treatment Upcoming Encounters Date Type Department Care Team (Late st Contact Info) Description 07/18/2024 1:00 PM EDT TH Visit (TeleHealth) [place] [address] Malinda Christopher MD [facility] [place] [address] documented as of this encounter Goals Goal Patient Goal Type Associated Problems Recent Progress Patient-Stated? Author [facility] Medication Compliance and Understanding Patient Facing Action Plan Lakeisha Matos [facility] Note: Achieve and maintain control of Crohn's symptoms as assessed by specialist every 3 to 6 months or more documented as of this encounter Visit Diagnoses Not on filedocumented in this encounter Care Teams Assistant Professor Of Chemistry Relationship Specialty Start Date End Date Valarie Phillips MD [address] [place] [address] PCP - General General Internal Medicine 09/06/17 documented as of this encounter
--- OUTSIDE RECORDS SUMMARY | 2024-04-14 02:12 | XMS_ITS | Encounter Summary ---
[place] [address] Care Team Providers Care Unit Clerk Name Role Phone Valarie Phillips MD Primary Care Provider [phone] Reason for Visit * Reason Onset Date Comments Medication Refill 04/27/2020 Encounter Details Date Type Department Care Team (Late st Contact Info) Description 04/27/2020 Refill [place] [phone] Fide Donnelly APRN [facility] [place] [address] Social History Tobacco Use Types Packs/Day Years [...] PM EDT TH Visit (TeleHealth) [place] [phone] Malinda Christopher MD [facility] [place] [address] documented as of this encounter Goals Goal Patient Goal Type Associated Problems Recent Progress Patient-Stated? Author [facility] Medication Compliance and Understanding Patient Facing Action Plan Lakeisha Maots, [facility] Note: Achieve and maintain control of Crohn's symptoms as assessed by specialist every 3 to 6 months or more documented as of this encounter Visit Diagnoses Not on filedocumented in this encounter Care Teams Unit Clerk Relationship Specialty Start Date End Date Valarie Phillips MD [address] [place] [address] PCP - General General Internal Medicine 09/06/17 documented as of this encounter
--- OUTSIDE RECORDS SUMMARY | 2024-04-14 02:12 | XMS_ITS | Encounter Summary ---
[place] [address] Care Team Providers Care Denture Model Maker Name Role Phone Valarie Phillips MD Primary Care Provider [phone] Encounter Details Date Type Department Care Team (Late st Contact Info) Description 12/17/2020 Ref[place] [phone] Malinda Christopher MD [facility] [place] [address] Social History Tobacco Use Types Packs/Day Years [...] PM EDT TH Visit (TeleHealth[place] [phone] Malinda Christopher MD [facility] [place] [address] documented as of this encounter Goals Goal [...] on filedocumented in this encounter Care Teams Denture Model Maker Relationship Specialty Start Date End Date Valarie Phillips MD [address] [place] [address] PCP - General General Internal Medicine 09/06/17 documented as of this encounter
--- OUTSIDE RECORDS SUMMARY | 2024-04-14 02:12 | XMS_ITS | Encounter Summary ---
Author Organization [facility] [place] [address] Care Team Providers Care Talent Acquisition Manager Name Role Phone Valarie Phillips MD Primary Care Provider [phone] Reason for Visit * Reason Comments Medication Refill Encounter Details Date Type Department Care Team (Late Contact Info) Description 04/16/2021 Refill [place] [phone] Fide Donnelly, [facility] [place] [address] Social History Tobacco Use Types Packs/Day Years [...] PM EDT TH Visit (TeleHealth) [place] [phone] Malinda Christopher MD [facility] [place] [address] documented as of this encounter Goals Goal Patient Goal Type Associated Problems Recent Progress Patient-Stated? Author [facility] Medication Compliance and Understanding Patient Facing Action Plan Lakeisha Matos, [facility] Note: Achieve and maintain control of Crohn's symptoms as assessed by specialist every 3 to 6 months or more documented as of this encounter Visit Diagnoses Not on filedocumented in this encounter Care Teams Talent Acquisition Manager Relationship Specialty Start Date End Date Valarie Phillips MD [address] [place] [address] PCP - General General Internal Medicine 09/06/17 documented as of this encounter
--- OUTSIDE RECORDS SUMMARY | 2024-04-14 02:12 | XMS_ITS | Encounter Summary ---
[place] [address] Care Team Providers Care Epic Anesthesia Analyst Name Role Phone Valarie Phillips MD Primary Care Provider [phone] Reason for Visit * Reason Comments Medication Management Specialty Refill Management Encounter Details Date Type Department Care Team (Late st Contact Info) Description 02/12/2021 Specialty [place] [address] Lucio Jones [facility] Social History Tobacco Use Types [...] this encounter Progress Notes * Lucio Jones [facility] - 02/12/2021 12:05 PM EST Clinical Management Plan: Refill Specialty Pharmacy Consultation; Lucio Jones [facility] Comprehensive Medication Management (CMM) Janice [...] and Drug intolerance: Allergies Allergen Reactions ??? [place] Medication Reconciliation Discrepancies (compared to [facility] med list) No Specialty Pharmacy Refill Questionnaire Refill Questionnaire 02/12/2021 What is the name of the specialty medication you are refilling? Humira Are you taking any new medications? No Any new medical condition? No Any new allergies? No Any new side effects that are bothersome? No What date will you need this fill by? 02/22/2021 Adherence: Any missed doses? No Patient understands no changes to current drug regimen were made. Lucio Jones RPH 02/12/21 12:06 PM documented in this encounter Plan of Treatment Upcoming Encounters Date Type Department Care Team (Late st Contact Info) Description 07/18/2024 1:00 PM EDT TH Visit (TeleHealth) [place] [address] Malinda Christopher MD [facility] [place] [address] documented as of this encounter Goals Goal Patient Goal Type Associated Problems Recent Progress Patient-Stated? Author [facility] Medication Compliance and Understanding Patient Facing Action Plan Lakeisha Matos [facility] Note: Achieve and maintain control of Crohn's symptoms as assessed by specialist every 3 to 6 months or more documented as of this encounter Visit Diagnoses Not on filedocumented in this encounter Care Teams Epic Anesthesia Analyst Relationship Specialty Start Date End Date Valarie Phillips MD [address] [place] [address] PCP - General General Internal Medicine 09/06/17 documented as of this encounter
--- OUTSIDE RECORDS SUMMARY | 2024-04-14 02:12 | XMS_ITS | Encounter Summary ---
Author Organization [facility] [address] [place] [address] Care Team Providers Care Digital Account Coordinator Name Role Phone Valarie Phillips MD Primary Care Provider [phone] Encounter Details Date Type Department Care Team (Late st Contact Info) Description 04/03/2020 [place] [address] Luci Marquez Social History Tobacco Use Types Packs/Day Years [...] encounter Miscellaneous Notes * Telephone Encounter - Luci Marquez - 04/03/2020 4:17 PM EST Janice Mahoney [id number] Diagnosis/Indication: crohn's 1. Have you ever had a/an Colonoscopy before? Yes: Date 10/02/17 If yes, did you have any problems with the procedure? No What type of sedation was used: IV Conscious Sedation 2. Do you take any Blood Thinners? No 3. Do you have a Pacemaker or Defibrillator device? No 4. Are you a diabetic? No 5. Do you have any Allergies to Eggs, Latex or Medications? Yes: natasha ethylene Gylcol 6. Do you take any Oral Iron Supplements (Including multi-vitamins)? No 7. Do you have a history of three or more abdominal surgeries? No 8. Have you had a problem with sedation or anesthesia? No 9. Do you have a c-pap machine or oxygen tank? Neither 10. Do you take prescription narcotic pain medications, including suboxone or methodone? No 11. Do you have a preference regarding the gender of your provider? No Preference 12. Is there any other information you would like to give us to aid in scheduling? No 13. Say to patient: You must have a responsible green party who will drive you to your procedure, stay [place] for the entire duration of your procedure, and drive you home from your procedure? Yes *Please Verify the height and weight, and adjust if height and/or weight have changed* Estimated body mass index is 27.3 kg/m?? as calculated from the following: Height as of 12/19/19: 152.4 cm (5'). Weight as of 12/19/19: 63.4 kg (139 lb 12.8 oz). *Delete if not needed* Height: 5' Weight: 135 Age:60 y.o. documented in this encounter Plan of Treatment Upcoming Encounters Date Type Department Care Team (Late st Contact Info) Description 07/18/2024 1:00 PM EDT TH Visit (TeleHealth) [place] [address] Malinda Christopher MD [facility] [place] [address] documented as of this encounter Goals Goal Patient Goal Type Associated Problems Recent Progress Patient-Stated? Author [facility] Medication Compliance and Understanding Patient Facing Action Plan Lakeisha Matos, [facility] Note: Achieve and maintain control of Crohn's symptoms as assessed by specialist every 3 to 6 months or more documented as of this encounter Visit Diagnoses Not on filedocumented in this encounter Care Teams Digital Account Coordinator Relationship Specialty Start Date End Date Valarie Phillips MD [address] [place] [address] PCP - General General Internal Medicine 09/06/17 documented as of this encounter
--- OUTSIDE RECORDS SUMMARY | 2024-04-14 02:12 | XMS_ITS | Encounter Summary ---
[place] [address] Care Team Providers Care Heavy Line Technician Name Role Phone Valarie Phillips MD Primary Care Provider [phone] Reason for Visit * Reason Comments Specialty Pharmacy Review Encounter Details Date Type Department Care Team (Late st Contact Info) Description 04/30/2021 Specialty [place] [address] Lary Mckinney, [facility] Social History Tobacco Use Types Packs/Day Years [...] encounter Progress Notes * Lary Mckinney - 04/30/2021 11:59 PM EST The [facility] has completed a benefits investigation for Janice Mahoney to review theireligibility to fill at [facility]. Per patient's medication list they are prescribed Humira and the medication is currently filled at the [facility]. documented in this encounter Plan of Treatment Upcoming Encounters Date Type Department Care Team (Late st Contact Info) Description 07/18/2024 1:00 PM EDT TH Visit (TeleHealth) [place] [address] Malinda Christopher MD [facility] [place] [address] documented as of this encounter Goals Goal Patient Goal Type Associated Problems Recent Progress Patient-Stated? Author [facility] Medication Compliance and Understanding Patient Facing Action Plan Lakeisha Matos, [facility] Note: Achieve and maintain control of Crohn's symptoms as assessed by specialist every 3 to 6 months or more documented as of this encounter Visit Diagnoses Not on filedocumented in this encounter Care Teams Heavy Line Technician Relationship Specialty Start Date End Date Valarie Phillips MD [address] [place] [address] PCP - General General Internal Medicine 09/06/17 documented as of this encounter
--- OUTSIDE RECORDS SUMMARY | 2024-04-14 02:12 | XMS_ITS | Encounter Summary ---
[place] [address] Care Team Providers Care Eyelet Operator Name Role Phone Valarie Phillips MD Primary Care Provider [phone] Reason for Visit * Reason Comments Medication Management Medication Refill Encounter Details Date Type Department Care Team (Late st Contact Info) Description 01/11/2021 Specialty [place] [id number] Frannie Araya [facility] Social History Tobacco Use Types Packs/Day [...] Progress Notes * Frannie Araya RPH - 01/11/2021 11:26 AM EDT Clinical Management Plan: Refill Specialty Pharmacy Consultation; Frannie Araya [facility] Comprehensive Medication Management (CMM) Janice Malinda [...] and Drug intolerance: Allergies Allergen Reactions ??? [place] Medication Reconciliation Discrepancies (compared to [facility] med list) No Specialty Pharmacy Refill Questionnaire Refill Questionnaire 01/11/2021 What is the name of the specialty medication you are refilling? Humira 40mg/0.4ml Are you taking any new medications? No Any new medical condition? No Any new allergies? No Any new side effects that are bothersome? No What date will you need this fill by? 01/25/2021 Adherence: Any missed doses? No Patient understands no changes to current drug regimen were made. Frannie Araya RPH 01/11/21 11:28 AM documented in this encounter Plan of Treatment Upcoming Encounters Date Type Department Care Team (Late st Contact Info) Description 07/18/2024 1:00 PM EDT TH Visit (TeleHealth) [place] [address] Malinda Christopher MD [facility] [place] [address] documented as of this encounter Goals Goal [...] on filedocumented in this encounter Care Teams Eyelet Operator Relationship Specialty Start Date End Date Valarie Phillips MD [address] [place] [address] PCP - General General Internal Medicine 09/06/17 documented as of this encounter
--- OUTSIDE RECORDS SUMMARY | 2024-04-14 02:12 | XMS_ITS | Encounter Summary ---
Author Organization [facility] [place] [place] [address] Care Team Providers Care Core Inspector Name Role Phone Valarie Phillips MD Primary Care Provider [phone] Reason for Visit * Reason Comments Medication Management Encounter Details Date Type Department Care Team (Late st Contact Info) Description 09/26/2020 Specialty Pharmacy Pharmacy at [facility] [place] [address] Jennie Barkley [facility] Social History Tobacco Use Types Packs/Day Years [...] Progress Notes * Jennie Barkley RPH - 09/26/2020 3:27 PM EDT Clinical Management Plan: Refill Specialty Pharmacy Consultation; Jennie Barkley [facility] Comprehensive Medication Management (CMM) Janice Mahoney Ms. Janice Mahoney is a 60 [...] and Drug intolerance: Allergies Allergen Reactions ??? [place] Medication Reconciliation Discrepancies (compared to [facility] med list) No Specialty Pharmacy Refill Questionnaire Refill Questionnaire 09/26/2020 What is the name of the specialty medication you are refilling? Humira Are you taking any new medications? No Any new medical condition? No Any new allergies? No Any new side effects that are bothersome? No What date will you need this fill by? 10/05/2020 Adherence: Any missed doses? No Patient understands no changes to current drug regimen were made.. Jennie Barkley RPH 09/26/20 3:28 PM documented in this encounter Plan of Treatment Upcoming Encounters Date Type Department Care Team (Late st Contact Info) Description 07/18/2024 1:00 PM EDT TH Visit (TeleHealth) [place] [address] Malinda Christopher MD [facility] [place] [address] documented as of this encounter Goals Goal Patient Goal Type Associated Problems Recent Progress Patient-Stated? Author [facility] Medication Compliance and Understanding Patient Facing Action Plan Lakeisha Matos, [facility] Note: Achieve and maintain control of Crohn's symptoms as assessed by specialist every 3 to 6 months or more documented as of this encounter Visit Diagnoses Not on filedocumented in this encounter Care Teams Core Inspector Relationship Specialty Start Date End Date Valarie Phillips MD [address] [place] [address] PCP - General General Internal Medicine 09/06/17 documented as of this encounter
--- OUTSIDE RECORDS SUMMARY | 2024-04-14 02:12 | XMS_ITS | Encounter Summary ---
Author Organization [facility] [place] [address] Care Team Providers Care Highway Engineer Name Role Phone Valarie Phillips MD Primary Care Provider [phone] Reason for Visit * Reason Comments Medication Management Encounter Details Date Type Department Care Team (Late st Contact Info) Description 06/01/2020 Specialty Pharmacy Pharmacy at [facility] [place] [address] Lucio Jones, [facility] Social History Tobacco Use Types Packs/Day [...] this encounter Progress Notes * Lucio Jones [facility] - 06/01/2020 2:41 PM EDT Clinical Management Plan: Refill Specialty Pharmacy Consultation; Lucio Jones [facility] Comprehensive Medication Management (CMM) Janice Petty Denzel Ms. Janice Mahoney is a 60 y.o. (1960) female who was contacted in regard to a specialty medication refill reminder. Spoke with patient regarding Humira. A review of the medication therapy was performed. The medication was Refilled as scheduled, and all medication related questions [...] beneficiary Provider: plan sponsor pharmacist Visit Type: [facility] Follow-up Method of Contact: by telephone Cognitive Ability: good Cognitive Impairment Status Verified this Year: no Allergies and Drug intolerance: Allergies Allergen Reactions ??? [place] Medication Reconciliation Discrepancies (compared to [facility] med list) -none New medications: no New medical conditions: no [...] were made at the appointment and that [facility] is providing recommendations (summary located at top of note) for provider review and follow up. Lucio Jones [facility] 06/01/20 2:42 PM * Frannie Araya [facility] - 06/01/2020 2:41 PM EDT Specialty Pharmacy Consultation; Frannie Araya [facility] Comprehensive Medication Management (CMM): Specialty Consult, Opt Out Janice Mahoney Diagnosis: Crohn's Disease Therapy Start Date: 10/2017 Contact in person or via telephone: Telephone Ms. Janice Mahoney is a 60 y.o. (1960) female who was contacted in regard to specialty medication. Spoke with patient regarding Humira. A review of the medication therapy was performed. The medication was refilled as scheduled, and all medication related questions and concerns were addressed. The specialty pharmacy staff will follow up with the patient 7 days prior to next refill. Is the patient willing to proceed with the Clinical Assessment? No Summary and Recommendations: Patient opts out of Humira 6 month follow up consult. She reports she is happy and comfortable withher medication. She was encouraged to contact Specialty Pharmacy with any questions or concerns. Economic Assessment: Patient is agreeable to medication copay: Yes Copay Amount: TBD - too soon to fill until 06/05/2020 Day Supply: 28 Date Needed: ~06/08/2020 Therapy Assessment: Appropriate Therapy: Yes Current Medication Dosing/Route/Frequency: Humira 40mg/0.4ml - inject the contents of 1 pen (40mg) subcutaneously every 7 days Additional equipment/supplies required: no Care Plan Reviewed and Approved by Pharmacist : Yes Problem List: Patient Active Problem List Diagnosis Code ??? Anal pain K62.89 ??? Clotting disorder D68.9 ??? Diverticulitis of large intestine without perforation or abscess without bleeding K57.32 ??? Gallstones K80.20 ??? Colonic Crohn's with mid small bowel segment K50.119 Medications Reviewed: Yes Medications reconciled: No Allergies Reviewed:Yes Allergies reconciled: No Pharmacist follow-up needed: No Informed patient of specialty pharmacy services: Yes -Patient will be provided with welcome packet: Yes Date to be provided: 12/11/2017 Delivery Method: Mail -Patient returned signed Rights & Responsibilities: Yes Date to be provided: 12/11/2017 Delivery Method: Mail -Patient is aware a licensed pharmacist is available 24 hours a day, 7 days a week to discuss medication-related questions or concerns: Yes -Patient verbalizes understanding of the common side effect profile of their medication. The patient is able to call 911 or seek urgent care if signs/symptoms of allergy or harmful adverse reactions occur: Yes Patient understands no changes to current drug regimen were made at the appointment and that the pharmacist is providing recommendations (summary located at top of note) for provider review and follow up. Frannie Araya RPH 06/01/20 3:48 PM documented in this encounter Plan of Treatment Upcoming Encounters Date Type Department Care Team (Late st Contact Info) Description 07/18/2024 1:00 PM EDT TH Visit (TeleHealth) [place] [address] Malinda Christopher MD [facility] [place] [address] documented as of this encounter Goals Goal Patient Goal Type Associated Problems Recent Progress Patient-Stated? Author [facility] Medication Compliance and Understanding Patient Facing Action Plan Lakeisha Matos, [facility] Note: Achieve and maintain control of Crohn's symptoms as assessed by specialist every 3 to 6 months or more documented as of this encounter Visit Diagnoses Not on filedocumented in this encounter Care Teams Highway Engineer Relationship Specialty Start Date End Date Valarie Phillips MD [address] [place] [address] PCP - General General Internal Medicine 09/06/17 documented as of this encounter
--- OUTSIDE RECORDS SUMMARY | 2024-04-14 02:12 | XMS_ITS | Encounter Summary ---
[place] [address] Care Team Providers Care Web Development Instructor Name Role Phone Valarie Phillips MD Primary Care Provider [phone] Reason for Visit * Reason Onset Date Comments Reminder Appointment 05/18/2020 Encounter Details Date Type Department Care Team (Late Contact Info) Description 05/18/2020 Telephone [place] [address] Blanca Rosales CMA Reminder Appointment Social History Tobacco Use Types Packs/Day Years [...] encounter Miscellaneous Notes * Telephone Encounter - Blanca Rosales CMA - 05/18/2020 1:57 PM EST Called patient to review medications and allergies for their upcoming gastroenterology Type of Appointment: Telehealth appointment. Reach Patient during MA Check: No, Left Message Notes for the provider: Notes for the nurse: documented in this encounter Plan of Treatment Upcoming Encounters Date Type Department Care Team (Late Contact Info) Description 07/18/2024 1:00 PM EDT TH Visit (TeleHealth) [place] [address] Malinda Christopher MD [facility] [place] [address] documented as of this encounter Goals Goal [...] on filedocumented in this encounter Care Teams Web Development Instructor Relationship Specialty Start Date End Date Valarie Phillips MD [address] [place] [address] PCP - General General Internal Medicine 09/06/17 documented as of this encounter
--- OUTSIDE RECORDS SUMMARY | 2024-04-14 02:12 | XMS_ITS | Encounter Summary ---
Author Organization [facility] [place] [address] Care Team Providers Care Buffing Machine Tender Name Role Phone Valarie Phillips MD Primary Care Provider [phone] Encounter Details Date Type Department Care Team (Latest Contact Info) Description 05/28/2021 1:15 PM EDT Laboratory Appointment Lab [address] [place] [phone] Colonic Crohn's with mid small bowel segment [...] PM EDT TH Visit (TeleHealth) [place] [address] Malinda Christopher MD [facility] [place] [address] documented as of this encounter Goals Goal Patient Goal Type Associated Problems Recent Progress Patient-Stated? Author [facility] Medication Compliance and Understanding Patient Facing Action Plan Lakeisha Matos, [facility] Note: Achieve and maintain control of Crohn's symptoms as assessed by specialist every 3 to 6 months or more documented as of this encounter Procedures Procedure Name Priority Date/Time Associated Diagnosis Comments HC C-REACTIVE PROTEIN Routine 05/28/2021 1:26 PM EDT Colonic Crohn's with mid small bowel segment HC QUANTIFERON Routine 05/28/2021 1:26 PM EDT Colonic Crohn's with mid small bowel segment HEMOGRAM Routine 05/28/2021 1:26 PM EDT Crohn's disease of colon with complication DIFFERENTIAL, AUTOMATED Routine 05/28/2021 1:26 PM EDT Crohn's disease of colon with complication HC CBC,PLT & AUTO DIFF Routine 05/28/2021 1:26 PM EDT Colonic Crohn's with mid small bowel segment HEPATIC FUNCTION PANEL Routine 05/28/2021 1:26 PM EDT Colonic Crohn's with mid small bowel segment documented in this encounter Results * Differential, Automated (05/28/2021 1:26 PM EDT) Neutrophil % 43.4 % [facility] Neutrophil Absolute 2.87 1.70 - 6.10 x10(3)/[facility] Lymph % 42.6 % [facility] Lymphocytes Abs 2.8 0.9 - 3.2 x10(3)/[facility] Monocyte % 9.1 % [facility] Monocyte Abs 0.6 0.3 - 0.9 x10(3)/[facility] Eos % 3.9 % [facility] Eosinophils Abs 0.3 0.0 - 0.4 x10(3)/[facility] Basophil % 0.8 % [facility] Baso Absolute 0.0 0.0 - 0.1 x10(3)/[facility] Immature Gran % 0.20 % [facility] Comment: Immature granulocytes(IG's)percentage and absolute count will include metamyelocytes, myelocytes, and promyelocytes. Blood smears from CBCs yielding IG's will be scanned manually for concordance. If this scan disagrees with the automated IG or if promyelocytes are noted, a manual differential will be performed. Immature Gran Absolute 0.01 0.00 - 0.04 x10(3)/[facility] Blood 05/28/2021 1:26 PM EDT 05/28/2021 1:59 PM EDT Narrative Resulting Agency Comment Spec In Lab L Tai Christopher MD HEMATOLOGY ORDERABLE S [facility] [place] [address] * Hemogram (05/28/2021 1:26 PM EDT) White Blood Cell 6.6 4.0 - 9.5 x10(3)/[facility] Red Blood Cell 4.17 4.00 - 5.21 x10(6)/[facility] Hemoglobin 12.7 11.7 - 15.5 g/dL [facility] Hematocrit 37.6 35.7 - 45.8 % [facility] Mean Cell Volume 90.2 82.6 - 94.4 fL [facility] Mean Cell Hemoglobin 30.5 27.1 - 32.0 pg [facility] Mean Cell Hemoglobin Concentration 33.8 31.7 - 35.0 g/dL [facility] Platelet 289 145 - 357 x10(3)/[facility] RDW Standard Deviation 40.7 37.0 - 46.0 fL [facility] RDW coefficient of variation 12.3 11.5 - 14.1 % [facility] Mean Platelet Volume 8.8 7.6 - 12.9 fL [facility] NRBC% auto 0.0 % [facility] NRBC Absolute 0.000 0.000 - 0.000 x10(3)/[facility] Blood 05/28/2021 1:26 PM EDT 05/28/2021 1:59 PM EDT Narrative Resulting Agency Comment Spec In Lab L Tai Christopher MD HEMATOLOGY ORDERABLE S Performing Organization Address City/[facility] Co de Phone Number [facility] [place] [address] * (ABNORMAL) QuantiFERON-TB Gold (05/28/2021 1:26 PM EDT) Quantiferon Nil 0.126 IU/mL [facility] QFT TB Ag1-Nil 0.402 IU/mL [facility] QFT TB Ag2-Nil 0.387 IU/mL [facility] Quantiferon Mitogen-Nil 9.874 IU/mL [facility] Quantiferon-TB Gold Positive(A) Negative [facility] Quantiferon Tb Interp M. tuberculosis [...] are suspected alternative tests should be performed. [facility] Blood 05/28/2021 1:26 PM EDT 05/30/2021 6:45 AM EDT Narrative Resulting Agency Comment Spec In Lab L Tai Christopher MD CHEMISTRY ORDERABLES [facility] [place] [address] * (ABNORMAL) Hepatic Function Panel (05/28/2021 1:26 PM EDT) Pathologist [facility] Protein, Total 7.2 6.1 - 8.0 g/dL [facility] Albumin 4.6 3.2 - 5.2 g/dL [facility] Aspartate Aminotransferase 18 0 - 30 unit/L [facility] Alanine Aminotransferase 20 0 - 30 unit/L [facility] Alkaline Phosphatase 85 35 - 105 unit/L [facility] Bilirubin, Total <0.2(L) 0.2 - 1.3 mg/dL [facility] Bilirubin, Direct 0.1 0.0 - 0.3 mg/dL [facility] Blood 05/28/2021 1:26 PM EDT 05/28/2021 1:59 PM EDT Narrative Resulting Agency Comment Spec In Lab L Tai Christopher MD CHEMISTRY ORDERABLES Performing Organization Address [facility] Co de Phone Number [facility] [place] [address] * CRP, acute inflammation (05/28/2021 1:26 PM EDT) [facility] C-Reactive Protein <3.0 <=4.9 mg/L [facility] Blood 05/28/2021 1:26 PM EDT 05/28/2021 1:59 PM EDT Narrative Resulting Agency Comment Spec In Lab L Tai Christopher MD CHEMISTRY ORDERABLES Performing Organization Address City/[facility]/ZIP Co de Phone Number [facility] [place] [address] documented in this encounter Visit Diagnoses Diagnosis Colonic Crohn's with mid small bowel segment documented in this encounter Care Teams Buffing Machine Tender Relationship Specialty Start Date End Date Valarie Phillips MD [address] [id number] PCP - General General Internal Medicine 09/06/17 documented as of this encounter
--- OUTSIDE RECORDS SUMMARY | 2024-04-14 02:12 | XMS_ITS | Encounter Summary ---
Author Organization [facility] [place] [address] Care Team Providers Care Grass Farmer Name Role Phone Valarie Phillips MD Primary Care Provider [phone] Reason for Visit * Reason Comments Medication Management Encounter Details Date Type Department Care Team (Late st Contact Info) Description 04/11/2021 Specialty Pharmacy Pharmacy at [facility] [place] [address] Jennie Barkley [facility] Social History Tobacco Use Types Packs/Day Years [...] Progress Notes * Jennie Barkley RPH - 04/11/2021 8:11 AM EST Clinical Management Plan: Refill Specialty Pharmacy Consultation; Jennie Barkley [facility] Comprehensive Medication Management (CMM) Janice Mahoney Ms. [...] and Drug intolerance: Allergies Allergen Reactions ??? [place] Medication Reconciliation Discrepancies (compared to [facility] med list) No Specialty Pharmacy Refill Questionnaire Refill Questionnaire 04/11/2021 What is the name of the specialty medication you are refilling? Humira Are you taking any new medications? No Any new medical condition? No Any new allergies? No Any new side effects that are bothersome? No What date will you need this fill by? 04/19/2021 Adherence: Any missed doses? No Patient understands no changes to current drug regimen were made. Jennie Barkley RPH 04/11/21 8:13 AM documented in this encounter Plan of Treatment Upcoming Encounters Date Type Department Care Team (Late st Contact Info) Description 07/18/2024 1:00 PM EDT TH Visit (TeleHealth) [place] [address] Malinda Christopher MD [facility] [place] [address] documented as of this encounter Goals Goal Patient Goal Type Associated Problems Recent Progress Patient-Stated? Author [facility] Medication Compliance and Understanding Patient Facing Action Plan Lakeisha Matos, [facility] Note: Achieve and maintain control of Crohn's symptoms as assessed by specialist every 3 to 6 months or more documented as of this encounter Visit Diagnoses Not on filedocumented in this encounter Care Teams Grass Farmer Relationship Specialty Start Date End Date Valarie Phillips MD [address] [place] [address] PCP - General General Internal Medicine 09/06/17 documented as of this encounter
--- OUTSIDE RECORDS SUMMARY | 2024-04-14 02:12 | XMS_ITS | Encounter Summary ---
Author Organization [facility] [place] [address] Care Team Providers Care Custom Clothier Name Role Phone Valarie Phillips MD Primary Care Provider [phone] Encounter Details Date Type Department Care Team (Late st Contact Info) Description 06/27/2020 Refill [place] [address] Herb Cardona MD Social History Tobacco Use Types Packs/Day Years [...] PM EDT TH Visit (TeleHealth) [place] [phone] Malinda Christopher MD [facility] [place] [address] documented as of this encounter Goals Goal Patient Goal Type Associated Problems Recent Progress Patient-Stated? Author [facility] Medication Compliance and Understanding Patient Facing Action Plan Lakeisha Matos, [facility] Note: Achieve and maintain control of Crohn's symptoms as assessed by specialist every 3 to 6 months or more documented as of this encounter Visit Diagnoses Not on filedocumented in this encounter Care Teams Custom Clothier Relationship Specialty Start Date End Date Valarie Phillips MD [address] [place] [address] PCP - General General Internal Medicine 09/06/17 documented as of this encounter
--- OUTSIDE RECORDS SUMMARY | 2024-04-14 02:12 | XMS_ITS | Encounter Summary ---
Author Organization [facility] [place] [address] Care Team Providers Care Ballpoint Pens Assembler Name Role Phone Valarie Phillips MD Primary Care Provider [phone] Encounter Details Date Type Department Care Team (Late st Contact Info) Description 02/24/2020 Refill [place] [phone] Fide Donnelly APRN [facility] [place] [address] Social History Tobacco Use Types Packs/Day Years [...] PM EDT TH Visit (TeleHealth) [place] [phone] Malinda Christopher MD [facility] [place] [address] documented as of this encounter Goals Goal [...] on filedocumented in this encounter Care Teams Ballpoint Pens Assembler Relationship Specialty Start Date End Date Valarie Phillips MD [address] [place] [address] PCP - General General Internal Medicine 09/06/17 documented as of this encounter
--- OUTSIDE RECORDS SUMMARY | 2024-04-14 02:12 | XMS_ITS | Encounter Summary ---
Author Organization [facility] [place] [address] Care Team Providers Care Classroom Aide Name Role Phone Valarie Phillips MD Primary Care Provider [phone] Reason for Visit * Auth/Cert Specialty Diagnoses / Procedures Referred By Vashti zeng Referred To Contact Diagnoses Crohn's disease Rectal pain Crohn's disease, c/o LLQ and rectal pain with defecation (IVCS) Suprep-being e-prescribed by Fide Donnelly (patient allergies to PEG) Procedures PRO COLONOSCOPY, DIAGNOSTIC PRO COLONOSCOPY, BIOPSY PRO COLONOSCOPY, REMV LESN, SNARE COLONOSCOPY, DIAGNOSTIC Referral ID Status Reason Start Date Expiration Date Visits Re quested Visits Authorized [id number] 1 1 Encounter Details Date Type Department Care Team (Late st Contact Info) Description 04/26/2020 2:15 PM EST - 04/26/2020 3:00 PM EST Surgery [place] [address] Malinda Christopher MD [facility] [place] [address] COLONOSCOPY FLEXIBLE, WITH BX (WRVU 3.56) Social [...] Sign Reading Time Taken Comments Blood Pressure 109/56 04/26/2020 3:00 PM EST Pulse 81 04/26/2020 2:55 PM EST Temperature 36.8 ??C (98.2 ??F) 04/26/2020 1:22 PM ES T Respiratory Rate 10 04/26/2020 2:55 PM EST Oxygen Saturation 97% 04/26/2020 2:55 PM EST Inhaled Oxygen Concentration - - [...] occurs, please contact your Doctor. Please call [phone] before 8pm Mon-Fri with problems, questions or concerns. If you call after 8pm or on weekends, call the Hospital at [phone] and ask to speak to the Motor Vehicle Representative adoption manager and the teasel gig operator will contact that person for you. When should you call for help? Call 911 anytime you think you may need emergency [...] any problems. Where can you learn more? [facility] View your After Visit Summary and more online at [email or web address] If you would like to provide feedback about your hospital experience, please call the Office of Patient and Family Relations at . If you have received this After Visit Summary in error, please immediately return it in person to the department, or notify the [facility] Privacy Office by calling toll free at between the hours of 8AM and 5PM to arrange for our retrieval of the documents at no cost to you. Content Version: 12.2 ?? [id number] [employer]. Care instructions adapted under license by [facility]. If you have questions about a medical condition or this instruction, always ask your healthcare professional. [employer] disclaims any warranty or liability for your [...] by mouth every other day. Med Name: Nukian, OTC supplement 02/03/2022 lidocaine (XYLOCAINE) 2 % [...] daily. 02/03/2022 DILTIAZEM HCL, BULK, MISC by Misc.(Non-Drug; Combo Route) route. Gel 02/04/20 acyclovir (ZOVIRAX) [...] PM EDT TH Visit (TeleHealth) [place] [address] Malinda Christopher MD [facility] [place] [address] documented as of this encounter Goals Goal Patient Goal Type Associated Problems Recent Progress Patient-Stated? Author [facility] Medication Compliance and Understanding Patient Facing Action Plan Lakeisha Matos, [facility] Note: Achieve and maintain control [...] REPORT Routine 04/26/2020 2:58 PM EST Colonoscopy, Remv Lesn, Snare ([id number]) 04/26/2020 2:32 PM EST Crohn's disease of both small and large intestine with rectal bleeding Colonoscopy, Biopsy ([id number]) 04/26/2020 2:32 PM EST Crohn's disease of both small and large intestine with rectal bleeding COLONOSCOPY Routine 04/26/2020 2:22 PM EST documented in this encounter Results * Specimen to Pathology (04/26/2020 3:14 PM EST) AP Specimen 04/26/2020 3:14 PM EST 04/26/2020 3:[address] [facility] - 04/26/2020 3:14 PM EST Specimen requisition ordered. ??Separate Pathology report to follow L Tai Christopher MD PATHOLOGY/CYTOLOGY O [place] Performing Organization Address City/[facility]/[place] [address] * Specimen to Pathology (04/26/2020 3:00 PM EST) AP Specimen 04/26/2020 3:00 PM EST 04/26/2020 3:[address] [facility] - 04/26/2020 3:00 PM EST Specimen requisition ordered. ??Separate Pathology report to follow L Tai Christopher MD PATHOLOGY/CYTOLOGY [place] Performing Organization Address City/[facility]/[place] [address] * Specimen to Pathology (04/26/2020 3:00 PM EST) AP Specimen 04/26/2020 3:00 PM EST 04/26/2020 3:[address] [facility] - 04/26/2020 3:00 PM EST Specimen requisition ordered. ??Separate Pathology report to follow L Tai Christopher MD PATHOLOGY/CYTOLOGY [place] Performing Organization Address City/[facility]/[place] [address] * Specimen to Pathology (04/26/2020 3:00 PM EST) AP Specimen 04/26/2020 3:00 PM EST 04/26/2020 3:[address] [facility] - 04/26/2020 3:00 PM EST Specimen requisition ordered. ??Separate Pathology report to follow L Tai Christopher MD PATHOLOGY/CYTOLOGY Jaquelin LOYA [facility] [place] [address] * Surgical Pathology Report (04/26/2020 2:58 PM EST) Final Diagnosis [id number] ? Location: 4T; 07; A The signing pathologist has (i) examined [...] Sun MD Verified: ??04/30/2020 ?Pathologist Performed at: ??-[facility] Dept. of Pathology, [place], [place] SPECIMEN(S) SUBMITTED A - Non targeted [...] labeled D1. ??shb 04/30/2020 1:[address] [facility] GI Biopsy 04/26/2020 2:58 PM EST 04/26/2020 2:58 PM EST GI Biopsy 04/26/2020 2:58 PM EST 04/26/2020 2:58 PM EST GI Biopsy 04/26/2020 2:58 PM EST 04/26/2020 2:58 PM EST GI Biopsy 04/26/2020 2:58 PM EST 04/26/2020 2:58 PM EST L Tai Christopher MD PATHOLOGY/CYTOLOGY Jaquelin LOYA Performing Organization Address City/State/[facility] Co de Phone Number [facility] [place] [address] * COLONOSCOPY (04/26/2020 2:22 PM EST) COLONOSCOPY [facility] Endoscopy Procedure Date: 04/26/2020 2:22 PM ? Patient Name: Janice Mahoney ? Date of : 1960 ? Age: 60 ? Order #: [id number] ? Instrument Name: [id number] ? Procedure: ? Colonoscopy Indications: ? Disease activity assessment of ? Crohn's disease of the colon Patient Profile: ? This is a 60 year old female. This ? patient has Crohn's colitis with ? perianal involvement, is taking ? adalimumab and is experiencing mild ? symptoms. Providers: ? Omar Christopher MD, Lennie Hendricks, ? Urban Grace, Mental Health Technician Referring MD: ?Valarie Phillips MD Medicines: ? [...] preparation was evaluated using ? the BBPS ([place] Bowel Preparation ? Scale) with scores of: [...] examinations with ? mild anal stenosis and yysca-[id number] sized, soft ? perianal skin tags. ? [...] with large intestine documented in this encounter Administered Medications Inactive Administered Medications - up to 3 most recent administrations Medication Order MAR Action Action Date Dose Rate Site fentaNYL (pf) (50 mcg/mL) multi-dose injection ONCE PRN, Starting on Perla 04/26/20 at 1434, Until Perla 04/26/20 at 1625, Intra-Operative (Intra-Procedure), Routine Given 04/26/2020 2:45 PM EST 50 mcg Given 04/26/2020 2:40 PM EST 50 mcg Given 04/26/2020 2:37 PM EST 50 mcg lactated ringers infusion 100 mL/hr, Intravenous, CONTINUOUS, Starting on Perla 04/26/20 at 1345, Until Perla 04/26/20 at 1620, Endoscopy (Day of Procedure) New Bag 04/26/2020 1:33 PM EST 100 mL/hr 100 mL/hr midazolam (pf) (Versed) (1 mg/mL) multi-dose injection ONCE PRN, Starting on Perla 04/26/20 at 1434, Until Perla 04/26/20 at 1625, Intra-Operative (Intra-Procedure), Routine Given 04/26/2020 2:56 PM EST 1 mg Given 04/26/2020 2:50 PM EST 1 mg Given 04/26/2020 2:45 PM EST 1 mg documented in this encounter Active and Recently [...] Hendricks RN)1445 (Given - Provider: Lennie Hendricks RN) midazolam [...] RN) documented in this encounter Care Teams Classroom Aide Relationship Specialty Start Date End Date Valarie Phillips MD [address] [place] [address] PCP - General General Internal Medicine 09/06/17 documented as of this encounter
--- OUTSIDE RECORDS SUMMARY | 2024-04-14 02:12 | XMS_ITS | Encounter Summary ---
[place] [address] Care Team Providers Care Outpatient Dietitian Name Role Phone Valarie Phillips MD Primary Care Provider [phone] Reason for Visit * Reason Comments Medication Management Specialty Refill Management Encounter Details Date Type Department Care Team (Late st Contact Info) Description 10/25/2020 Specialty [place] [phone] Lucio Jones [facility] Social History Tobacco Use Types Packs/Day Years [...] this encounter Progress Notes * Lucio Jones [facility] - 10/25/2020 4:07 PM EDT Clinical Management Plan: Refill Specialty Pharmacy Consultation; Lucio Jones [facility] Comprehensive Medication Management (CMM) Janice Petty Denzel [...] and Drug intolerance: Allergies Allergen Reactions ??? [place] Medication Reconciliation Discrepancies (compared to [facility] med list) No Specialty Pharmacy Refill Questionnaire Refill Questionnaire 10/25/2020 What is the name of the specialty medication you are refilling? Humira Are you taking any new medications? No Any new medical condition? No Any new allergies? No Any new side effects that are bothersome? No What date will you need this fill by? 11/02/2020 Adherence: Any missed doses? No Patient understands no changes to current drug regimen were made.. Lucio Jones RPH 10/25/20 4:09 PM documented in this encounter Plan of Treatment Upcoming Encounters Date Type Department Care Team (Late st Contact Info) Description 07/18/2024 1:00 PM EDT TH Visit (TeleHealth) [place] [address] Malinda Christopher MD [facility] DR GASTROENTEROLOGY [place] [id number] documented as of this encounter Goals Goal Patient Goal Type Associated Problems Recent Progress Patient-Stated? Author [facility] Medication Compliance and Understanding Patient Facing Action Plan Lakeisha Matos [facility] Note: Achieve and maintain control of Crohn's symptoms as assessed by specialist every 3 to 6 months or more documented as of this encounter Visit Diagnoses Not on filedocumented in this encounter Care Teams Outpatient Dietitian Relationship Specialty Start Date End Date Valarie Phillips MD [address] [place] [address] PCP - General General Internal Medicine 09/06/17 documented as of this encounter
--- OUTSIDE RECORDS SUMMARY | 2024-04-14 02:12 | XMS_ITS | Encounter Summary ---
[facility] [place] [address] Care Team Providers Care Medical Cash Poster Name Role Phone Valarie Phillips MD Primary Care Provider [phone] Reason for Visit * Reason Comments Medication Management Follow-up Encounter Details Date Type Department Care Team (Late st Contact Info) Description 02/01/2020 Specialty [place] [address] Sonal Montes [facility] Social History Tobacco Use [...] as of this encounter Progress Notes * Sonal Montes [facility] - 02/01/2020 5:10 PM EST Clinical Management Plan: Refill Specialty Pharmacy Consultation; Sonal Montes [facility] Comprehensive Medication Management (CMM) Janice Mahoney Ms. Janice Mahoney is a 59 y.o. (1960) female who was contacted in regard to a specialty medication refill reminder. Spoke with patient regarding Humira. A review of the medication therapy was performed. The medication was Filled as scheduled, and all medication related questions and concerns were addressed. The specialty pharmacy staff will follow up with the patient 5-7 days prior to next refill. Was a change made to the Care Plan: no If yes, should the medication be held: No Assessment and Recommendations: Title Cognitive Ability: good Cognitive Impairment Status Verified this Year: no Allergies and Drug intolerance: Allergies Allergen Reactions ??? [place] Medication Reconciliation Discrepancies (compared to [facility] med list) -none New medications: no New [...] note) for provider review and follow up. Sonal Montes [facility] 02/01/20 5:10 PM documented in this encounter Plan of Treatment Upcoming Encounters Date Type Department Care Team (Late st Contact Info) Description 07/18/2024 1:00 PM EDT TH Visit (TeleHealth) [place] [address] Malinda Christopher MD [facility] [place] [address] documented as of this encounter Goals Goal Patient Goal Type Associated Problems Recent Progress Patient-Stated? Author [facility] Medication Compliance and Understanding Patient Facing Action Plan Lakeisha Matos [facility] Note: Achieve and maintain control of Crohn's symptoms as assessed by specialist every 3 to 6 months or more documented as of this encounter Visit Diagnoses Not on filedocumented in this encounter Care Teams Medical Cash Poster Relationship Specialty Start Date End Date Valarie Phillips MD [address] [place] [address] PCP - General General Internal Medicine 09/06/17 documented as of this encounter
--- OUTSIDE RECORDS SUMMARY | 2024-04-14 02:12 | XMS_ITS | Encounter Summary ---
Author Organization [facility] [place] [address] Care Team Providers Care Lumber Stacker Name Role Phone Valarie Phillips MD Primary Care Provider [phone] Reason for Visit * Reason Comments Specialty Refill Management Encounter Details Date Type Department Care Team (Late st Contact Info) Description 06/27/2020 Specialty [place] [address] Gigi Almanzar CPHT Social History Tobacco Use [...] encounter Progress Notes * Gigi Almanzar - 06/27/2020 10:49 AM EDT Clinical Management Plan: Refill Specialty [...] and Drug intolerance: Allergies Allergen Reactions ??? [place] Medication Reconciliation Discrepancies (compared to [facility] med list) No Specialty Pharmacy Refill Questionnaire Refill Questionnaire 06/27/2020 What is the name of the specialty medication you are refilling? Humira Are you taking any new medications? No Any new medical condition? No Any new allergies? No Any new side effects that are bothersome? No What date will you need this fill by? 07/13/2020 Adherence: Any missed doses? No Patient understands no changes to current drug regimen were made.. Gigi Almanzar 06/27/20 10:50 AM documented in this encounter Plan of Treatment Upcoming Encounters Date Type Department Care Team (Late st Contact Info) Description 07/18/2024 1:00 PM EDT TH Visit (TeleHealth) [place] [address] Malinda Christopher MD [facility] [place] [address] documented as of this encounter Goals Goal Patient Goal Type Associated Problems Recent Progress Patient-Stated? Author [facility] Medication Compliance and Understanding Patient Facing Action Plan Lakeisha Matos, [facility] Note: Achieve and maintain control of Crohn's symptoms as assessed by specialist every 3 to 6 months or more documented as of this encounter Visit Diagnoses Not on filedocumented in this encounter Care Teams Lumber Stacker Relationship Specialty Start Date End Date Valarie Phillisp MD [address] [place] [address] PCP - General General Internal Medicine 09/06/17 documented as of this encounter
--- OUTSIDE RECORDS SUMMARY | 2024-04-14 02:12 | XMS_ITS | Encounter Summary ---
[place] [address] Care Team Providers Care Greenhouse Transplanter Name Role Phone Valarie Phillips MD Primary Care Provider [phone] Reason for Visit * Reason Comments Specialty Refill Management Encounter Details Date Type Department Care Team (Late st Contact Info) Description 11/19/2020 Specialty [place] [address] Seble Hong [facility] Social History Tobacco Use Types [...] this encounter Progress Notes * Seble Carrington RP - 11/19/2020 4:26 PM EDT Clinical Management Plan: Refill Specialty [...] and Drug intolerance: Allergies Allergen Reactions ??? [place] Medication Reconciliation Discrepancies (compared to [facility] med list) No Specialty Pharmacy Refill Questionnaire Refill Questionnaire 11/19/2020 What is the name of the specialty medication you are refilling? Humira Are you taking any new medications? No Any new medical condition? No Any new allergies? No Any new side effects that are bothersome? No What date will you need this fill by? 11/30/2020 Adherence: Any missed doses? No Patient understands no changes to current drug regimen were made. Seble Carrington RPH 11/19/20 4:29 PM documented in this encounter Plan of Treatment Upcoming Encounters Date Type Department Care Team (Late st Contact Info) Description 07/18/2024 1:00 PM EDT TH Visit (TeleHealth) [place] [address] Malinda Christopher MD [facility] [place] [place] [address] documented as of this encounter Goals Goal [...] on filedocumented in this encounter Care Teams Greenhouse Transplanter Relationship Specialty Start Date End Date Valarie Phillips MD [address] [place] [address] PCP - General General Internal Medicine 09/06/17 documented as of this encounter
--- OUTSIDE RECORDS SUMMARY | 2024-04-14 02:12 | XMS_ITS | Encounter Summary ---
Author Organization [facility] [place] [address] Care Team Providers Care Stretcher Leveler Operator Helper Name Role Phone Valarie Phillips MD Primary Care Provider [phone] Encounter Details Date Type Department Care Team (Latest Contact Info) Description 05/18/2020 4:00 PM EST TH Visit (TeleHealth) [place] [address] Malinda Christopher MD [facility] [place] [address] Crohn's disease of both small and large [...] * Patient Instructions* Malinda Christopher MD - 05/18/2020 4:00 PM EST 1. Continue Humira 40 mg weekly 2. Next routine labs in late August or early September 3. For constipation, continue magnesium. If there is no allergy to PEG on testing, consider changing to MiraLAX half capful nightly 4. Monitor painful oral lesions for now; if they become more numerous or painful, consider definitive diagnosis to rule out HSV 5. For gaseousness, try to cut out gas-forming foods, such as cruciferous vegetables. Alternatively, reasonable to consider FODMAP diet (see: www.[employer]) 6. Repeat colonoscopy in 2 years for surveillance 7. Follow-up in the office in approximately 4 months. documented in this encounter Progress Notes * Malinda Christopher MD - 05/18/2020 4:00 PM EST GASTROENTEROLOGY TELEMEDICINE PROGRAM - ESTABLISHED PATIENT [...] that did not heal ?? 10/02/17: Colonoscopy ([facility]) Large perianal inflamed skin tags ??found on [...] transmural enhancement, however, no mesenteric inflammation. ?? [place] 04/2020 - No active Crohn's apart from mild erythema in sigmoid that was inactive on bx. Mild narrowing of the sigmoid colon related to diverticular dx, less likely Crohn's. 3 mm adenomas descending colon. Nl TI. Treatments: ?? Started Humira end of 10/2017, 12/17/17 Pender Humira level 12.8, no antibodies on every two week Humira . Repeat Pender Spring 2019 with Ab and low drug [...] Mahoney comes today to follow-up Crohn's disease. I last saw her for colonoscopy several weeks ago. There was no active Crohn's disease, significant diverticular disease primarily in the sigmoid colon, and a normal terminal ileum. Continues to take Humira weekly. Had problems with constipation following her colonoscopy. She has been taking magnesium oxide 400 mg/day with some improvement over the last several days. Had hives with MiraLAX prep, though was suffering from nausea and vomiting at the time. Had tolerated MiraLAX in smaller doses in the past and also been tested by Dr. Boggs and negative. Anticipating an allergy test with Dr. Phillips within the coming weeks. Described recurrent small painful lesions in her mouth, typically in the roof of the mouth. They are the size of a pencil eraser at worst or sometimes the tip of a felt pen. They can start as little bubble and then turned into a little erosion, canker sore. She gets them about once every 6 weeks or so. Does not have problems with multiple at once. Continues to have trouble with lots of gaseousness which is frustrating for her. Review of systems: 14-point review of systems reviewed and negative except as above. Medications: Outpatient Medications Prior to Visit Medication Sig Dispense Refill ??? omeprazole (PriLOSEC) 20 mg Capsule, Delayed Release(E.C.) Take 1 capsule by mouth daily. 90 capsule 3 ??? senna (Senokot) 8.6 mg Tablet Take by mouth daily. ??? ondansetron (Zofran) 4 mg Tablet Take 1 tablet by mouth every 8 hours as needed for Nausea. 4 tablet 0 ??? adalimumab 40 mg/0.4 mL Pen Injector Kit Inject the contents of one pen (40 mg) subcutaneously once every 7 days. 6 kit 1 ??? nystatin-triamcinolone (MYCOLOG II) Cream Apply topically [...] prior to visit. Allergies: is allergic to mohegan. Past Medical History: has a past medical history of Diverticulitis and Hemorrhagic disorder. Past Surgical History: has a past surgical history that includes Colonoscopy, Diagnostic (86762) (02/19/2012); Cholecystectomy; Hysterectomy; Hemorrhoid surgery; Colonoscopy, Biopsy (20451) (N/A, 10/02/2017); Colonoscopy, Biopsy (29871) (N/A, 04/26/2020); and Colonoscopy, [place]ene [place], Snare (90052) (N/A, 04/26/2020). Family History: family history includes Asthma in her brother and sister; Cancer in her maternal grandmother and paternal grandmother. denies family history of colon cancer, IBD, or celiac disease in mother father or other family members Social History: reports that she quit smoking about 26 years ago. Her smoking use included cigarettes. [...] records): Lab Results Component Value Date WBC 8.3 04/26/2020 RBC 3.86 (L) 04/26/2020 HGB 12.0 04/26/2020 HCT 35.8 04/26/2020 MCV 92.7 04/26/2020 MCH 31.1 04/26/2020 MCHC 33.5 04/26/2020 PLATELET 229 04/26/2020 RDWCV 12.0 04/26/2020 Lab Results Component Value Date CRP 4.8 04/26/2020 Lab Results Component Value Date ALT 19 04/26/2020 AST 24 04/26/2020 ALKPHOS 77 04/26/2020 BILITOT 0.4 04/26/2020 Assessment/Plan: Ms. Mahoney is a 60 y.o. patient with history of Crohn's disease. She has not had mid small bowel Crohn's disease on her recent staging. Her most recent colonoscopy did not show any signs of active disease, which is good news. For her Crohn's disease, we will continue weekly Humira. She is not due for labs until September. She asked about Covid and Humira. I summarized and shared the data from the recent RAND panel of IBD experts, who proposed recommendations for the management of IBD in setting COVID-19, as well as the SECURE IBD registry. So far, the data regarding anti-TNF use looks fairly reassuring. With that information, recommend continuing anti-TNF unless new symptoms of fever, diarrhea, muscle aches, cough, SOB were to develop. In that case, my office should be contacted. Otherwise, continue to take precautionsto minimize potential exposure to the virus. She is signed up to get the COVID-19 immunization in [place] within the next week, and I encouragedher to do so. For constipation, she will continue magnesium for now. After she has been tested for PEG allergy, ideally I would recommend changing to MiraLAX half capful nightly. The mouth lesion she describes may be at the stomatitis related to her underlying Crohn's disease, but it is relatively mild. Possible this is also idiopathic oral aphthous ulcers. Lastly, talked about the possibility of HSV. If they become more numerous and/or larger/painful, she will reach out toher primary care physician to try to make a definitive diagnosis. In the meantime, she will manage them symptomatically with topical lidocaine (Anbesol). For her gaseousness, she may try and decrease gas producing foods, such as cruciferous vegetables. We also talked about potentially trying the FODMAP diet. She had read about it and is curious about it. I think this may be helpful for her as long as it does not constipate her. She will check out the regimen outlined on the website treated by the [facility]. Recommendations: 1. Continue Humira 40 mg weekly 2. Next routine labs in late August or early September 3. For constipation, continue magnesium. If there is no allergy to PEG on testing, consider changing to MiraLAX half capful nightly 4. Monitor painful oral lesions for now; if they become more numerous or painful, consider definitive diagnosis to rule out HSV 5. For gaseousness, try to cut out gas-forming foods, such as cruciferous vegetables. Alternatively, reasonable to consider FODMAP diet (see: www.[employer]) 6. Repeat colonoscopy in 2 years for surveillance 7. Follow-up in the office in approximately 4 months. The patient was located in [place] at the time of their telemedicine visit. I spent 30 min today reviewing the chart preparing for this visit, counseling the patient [id number] on the issues outlined above, and documenting an implementing the plan. Omar Christopher MD Workers' Compensation Commissionerchief fundraising officer Co-Director, [facility] Section of Gastroenter[place] [address] documented in this encounter Plan of Treatment Upcoming Encounters Date Type Department Care Team (Late st Contact Info) Description 07/18/2024 1:00 PM EDT TH Visit (TeleHealth) [place] [address] Malinda Christopher MD [facility] [place] [address] documented as of this encounter Goals Goal Patient Goal Type Associated Problems Recent Progress Patient-Stated? Author [facility] Medication Compliance and Understanding Patient [...] segment documented in this encounter Care Teams Stretcher Leveler Operator Helper Relationship Specialty Start Date End Date Valarie Phillips MD [address] [place] [address] PCP - General General Internal Medicine 09/06/17 documented as of this encounter
--- OUTSIDE RECORDS SUMMARY | 2024-04-14 02:12 | XMS_ITS | Encounter Summary ---
[place] [address] Care Team Providers Care Facility Practice Specialist Name Role Phone Valarie Phillips MD Primary Care Provider [phone] Reason for Visit * Reason Onset Date Comments Medication Refill 02/22/2021 Encounter Details Date Type Department Care Team (Late st Contact Info) Description 02/22/2021 Refill [place] [phone] Fide Donnelly APRN [facility] [place] [address] Social History Tobacco Use Types Packs/Day Years [...] PM EDT TH Visit (TeleHealth) [place] [address] Malnida Christopher MD [facility] [place] [address] documented as of this encounter Goals Goal Patient Goal Type Associated Problems Recent Progress Patient-Stated? Author [facility] Medication Compliance and Understanding Patient Facing Action Plan Lakeisha Matos, [facility] Note: Achieve and maintain control of Crohn's symptoms as assessed by specialist every 3 to 6 months or more documented as of this encounter Visit Diagnoses Not on filedocumented in this encounter Care Teams Facility Practice Specialist Relationship Specialty Start Date End Date Valarie Phillips MD [address] [place] [address] PCP - General General Internal Medicine 09/06/17 documented as of this encounter
--- OUTSIDE RECORDS SUMMARY | 2024-04-14 02:12 | XMS_ITS | Encounter Summary ---
[place] [address] Care Team Providers Care Rug Cleaning Supervisor Name Role Phone Valarie Phillips MD Primary Care Provider [phone] Reason for Visit * Reason Onset Date Comments Medication Refill 02/03/2020 Encounter Details Date Type Department Care Team (Late st Contact Info) Description 02/03/2020 Ref[place] [address] Fide Donnelly, [facility] [place] [address] Social History Tobacco Use Types Packs/Day Years [...] PM EDT TH Visit (TeleHealth[place] [address] Malinda Christopher MD [facility] [place] [address] documented as of this encounter Goals Goal Patient Goal Type Associated Problems Recent Progress Patient-Stated? Author [facility] Medication Compliance and Understanding Patient Facing Action Plan Lakeisha Matos, [facility] Note: Achieve and maintain control of Crohn's symptoms as assessed by specialist every 3 to 6 months or more documented as of this encounter Visit Diagnoses Not on filedocumented in this encounter Care Teams Rug Cleaning Supervisor Relationship Specialty Start Date End Date Valarie Phillips MD [address] [place] [address] PCP - General General Internal Medicine 09/06/17 documented as of this encounter
--- OUTSIDE RECORDS SUMMARY | 2024-04-14 02:12 | XMS_ITS | Encounter Summary ---
Author Organization [facility] [place] [place] [address] Care Team Providers Care Pouch Maker Name Role Phone Valarie Phillips MD Primary Care Provider [phone] Reason for Visit * Reason Comments Medication Management Encounter Details Date Type Department Care Team (Late st Contact Info) Description 05/07/2020 Specialty Pharmacy Pharmacy at [facility] [place] [address] Jennie Barkley [facility] Social History Tobacco Use Types Packs/Day Years [...] Progress Notes * Jennie Barkley RPH - 05/07/2020 8:26 AM EST Clinical Management Plan: Refill Specialty Pharmacy Consultation; Jennie Barkley [facility] Comprehensive Medication Management (CMM) Janice Mahoney Ms. Janice Mahoney is a 60 y.o. (1960) female who refilled their specialty medication, Humira , without speaking to a major account representative from the Specialty Pharmacy. The medication was refilled on 05/08/20 for a 28 day supply for TBD copay. Adherence: Gaps in fill history: no Was a change made to the Care Plan: no If yes, should the medication be held: No The specialty pharmacy staff will follow up with the patient 5-7 days prior to next refill for reminder if needed. Jennie Barkley RPH 05/07/20 8:26 AM documented in this encounter Plan of Treatment Upcoming Encounters Date Type Department Care Team (Late st Contact Info) Description 07/18/2024 1:00 PM EDT TH Visit (TeleHealth) [place] [address] Malinda Christopher MD [facility] [place] [address] documented as of this encounter Goals Goal Patient Goal Type Associated Problems Recent Progress Patient-Stated? Author [facility] Medication Compliance and Understanding Patient Facing Action Plan Lakeisha Matos, [facility] Note: Achieve and maintain control of Crohn's symptoms as assessed by specialist every 3 to 6 months or more documented as of this encounter Visit Diagnoses Not on filedocumented in this encounter Care Teams Pouch Maker Relationship Specialty Start Date End Date Valarie Phillips MD [address] [place] [address] PCP - General General Internal Medicine 09/06/17 documented as of this encounter
--- OUTSIDE RECORDS SUMMARY | 2024-04-14 02:13 | XMS_ITS | Encounter Summary ---
[place] [address] Care Team Providers Care Irrigation Specialist Name Role Phone Valarie Phillips MD Primary Care Provider [phone] Reason for Referral * Diagnostic Test (Routine) - Closed Specialty Diagnoses / Procedures Referred By Vashti zeng Referred To Contact Radiology Diagnoses Crohn's disease of both small and large intestine with rectal bleeding Procedures MRI Enterography wwo Contrast Fide Donnelly APRN [facility] [place] [address] [place] [address] Referral ID Status Reason Start Date Expiration Date V isits Requested Visits Authorized [id number] Closed Specialty Service Requested 07/01/2019 12/27/2019 1 1 Encounter Details Date Type Department Care Team (Late st Contact Info) Description 05/16/2019 9:00 AM EDT Office Visit [place] [phone] Fide Donnelly APRN [facility] [place] [address] Crohn's disease of both small and large [...] Sign Reading Time Taken Comments Blood Pressure 146/65 05/16/2019 9:05 AM EDT Pulse 77 05/16/2019 9:05 AM EDT Temperature - - Respiratory Rate - - Oxygen Saturation - - Inhaled Oxygen Concentration - - Weight 62.3 kg (137 lb 4.8 oz) 05/16/2019 9:05 A M EDT Height 151.1 cm (4' 11.5) 05/16/2019 9:05 AM ED T Body Mass Index 27.27 05/16/2019 9:05 AM EDT documented in this encounter Progress Notes * Fide Donnelly, HAY STACKER OPERATOR - 05/16/2019 9:00 AM EDT [facility] Division of Gastroenterology and Hepatology Outpatient Follow up ?? Reason for Visit:??Crohn's disease ?? Referred by??Valarie Phillips ?? ID:??Faye Mahoney??is a 59 y.o.??female?with PMH significant for hemorrhoid surgery who is seenin follow up for ??Crohn's disease. ? Interval History: Faye presents for f/u: I saw her last 01/2019 and she cancelled her f/u w/ Dr. Christopher this Apr and rescheduled for this coming June. ?? Her main issues: 1. Crohn's disease, on Humira 40 mg every other week. She is having more episodes of LLQ pain. Finds if she eats high fiber foods, then caused more LLQ pain. However, tolerating fiber supplement. 2.??Perianal pain with difficulty passing stools. At last visit, her main concern was about her sphincter muscle that may not be working as well. We obtained an anal manometry and this showed No overall evidence of dyssynergic defecation on anorectal manometry or balloon expulsion test. Resting anal sphincter pressure reflecting internal sphincter function was??elevated.Maximum squeeze pressures reflecting external sphincter function were??normal. Rectal sensation was??hypersensitive. As per d/w Dr. Nicolas, recommended Metamucil. But she uses Benefiber instead, takes 2 scoops once daily and helps with consistencies. She continues to have rectal pain with defecation as well as discomfort in between the anal and sacral area, worried if she has fungal infection. Although benefiber does helps makes her stool softer but still gets pain with defecation, find it difficult to pass her stools. More recently noted blood in stool. Having bm once a day, does not feel constipated. Has not used Mag citrate. 3. Stomach , esophageal discomfort( raw sensation). Sxs improved since she started OTC Prilosec 20 mg once daiy. Then tried coming off but with recurrent sxs so now back on Prilsoec once daily. Eating well. No n/v No f/c. Weight stable ?? Review of Systems:??as above, the rests negative. ? Patient Active Problem List ?? Diagnosis ??? Crohn's disease of colon with complication ? Crohn's Disease: ?? Location:??Colonic??and mid small bowel,??Behavior: Inflammatory?perianal disease in form of skin tags ?? Symptoms: worsening hemorrhoids April 2017 undergoes excisional hemorrhoidectomy that did not heal ?? 10/02/17: Colonoscopy ([facility]) Large perianal inflamed skin tags ??found on perianal exam. - The descending colon, splenic flexure, transverse colon, hepatic flexure, ascending colon, cecum, appendiceal orifice and terminal ileum are normal. ?- Diverticulosis associated with stricturing in the sigmoid colon and in the descending colon. ??There was possible subtle inflammation in the rectum andsigmoid. PATH: Sigmoid and rectum: Chronic active colitis with multiple noncaseating granulomas that also involve ??submucosa ?? 10/29/17 MRE:??Approximate 10 cm area of distal descending to sigmoid colon involved with active Crohn's disease as described above. Second focal segment involving mid small bowel as described above with ?? likely Crohn's disease which appears less severe than the colonic segment ?? Started Humira: End of Oct 2017, [place]ins Level 12.8 on 12/17/17 ?? Treatments: ?? Started Humira end of 10/2017, 12/17/17 Rollins Humira level 12.8, no antibodies on every two week Humira ?? Health Maintenance: ?? 10/19/17 TB - Quant gold neg ?? 10/19/17 Hep B negative ?? 01/2018 Shingrix ?? 01/2018 Pneumococcal (presumed Pneumovax) ? Anal pain ??? Clotting disorder ? Protein C deficiency ? Diverticulitis of large intestine without perforation or abscess without bleeding ??? Gallstones ? Past Medical History: Diagnosis Date ??? Diverticulitis ??? Hemorrhagic disorder protein C deficiency Past Surgical History: Procedure Laterality Date ??? CHOLECYSTECTOMY ??? HEMORRHOID SURGERY ??? HYSTERECTOMY ??? PRO COLONOSCOPY, BIOPSY N/A 10/02/2017 COLONOSCOPY FLEXIBLE, WITH BX (WRVU 3.66) performed by Moe Smith MD at [facility] END[facility]COPY ??? PRO COLONOSCOPY, DIAGNOSTIC 02/19/2012 COLONOSCOPY, DIAGNOSTIC performed by Nathanael Pyle MD at [facility] END[facility]COPY Social History Socioeconomic History ??? Marital status: Spouse name: Not on file ??? Number of children: Not on file ??? Years of education: Not on file ??? Highest education level: Not on file Occupational History ??? Not on file Social Needs ??? Financial resource strain: Not on file ??? Food insecurity Worry: Not on file Inability: Not on file ??? Transportation needs Medical: Not on file Non-medical: Not on file Tobacco Use ??? Smoking status: Former Smoker ??? Smokeless tobacco: Never Used Substance and Sexual Activity ??? Alcohol use: Yes Alcohol/week: 5.0 standard drinks Types: 5 Glasses of wine per week ??? Drug use: Not on file ??? Sexual activity: Yes Partners: Male Lifestyle ??? Physical activity Days per week: Not on file Minutes per session: Not on file ??? Stress: Not on file Relationships ??? Social connections Talks on phone: Not on file Gets together: Not on file Attends gnosticism service: Not on file Active member of club or organization: Not on file Attends meetings of clubs or organizations: Not on file Relationship status: Not on file ??? Intimate partner violence Fear of current or ex partner: Not on file Emotionally abused: Not on file Physically abused: Not on file Forced sexual activity: Not on file Other Topics Concern ??? Not on file Social History Narrative ??? Not on file Family History Problem Relation Age of Onset ??? Cancer Maternal Grandmother colon ca, uterine ca ??? Cancer Paternal Grandmother colonc ca ?? Social History:?reports that she has quit smoking. She has never used smokeless tobacco. She reports that she drinks about 3.0 oz of alcohol per week. ?? Family History:??family history includes Cancer in her maternal grandmother and paternal grandmother. ?? Vitals: 05/16/19 0905 BP: 146/65 BP Location (NBP): Right arm Patient Position: Sitting BP Cuff Sizes: Adult (25-34 cm) Pulse: 77 Weight: 62.3 kg (137 lb 4.8 oz) Height: 151.1 cm (4' 11.5) Physical Exam Constitutional: General: She is not in acute distress. Appearance: Normal appearance. She is not ill-appearing. Cardiovascular: Rate and Rhythm: Normal rate and regular rhythm. Pulmonary: Effort: Pulmonary effort is normal. Breath sounds: Normal breath sounds. Abdominal: General: Bowel sounds are normal. There is no distension. Palpations: Abdomen is soft. There is no mass. Tenderness: There is abdominal tenderness (mild tenderness on LLQ >RLQ on palpation. Otherwise soft, non-tender). There is no guarding. Genitourinary: Comments: Assisted by EVELYN Escobar Rocío-anal area: skin tags, mild erythematous areas, no external fissure noted. No fluctuance. Dry, mildly erythematous proximal to anal verge, close to sacrum. Skin: General: Skin is warm and dry. Neurological: General: No focal deficit present. Mental Status: She is alert and oriented to person, place, and time. Psychiatric: Mood and Affect: Mood normal. ?? TESTINGS: Results for FAYE MAHONEY ( ) as of 05/13/2019 16:22 Ref. Range 01/17/2019 09:54 WBC Latest Ref Range: 4.0 - 9.5 x10(3)/mcL 6.1 RBC Latest Ref Range: 4.00 - 5.21 x10(6)/mcL 4.39 Hemoglobin Latest Ref Range: 11.7 - 15.5 gm/dL 13.1 Hematocrit Latest Ref Range: 35.7 - 45.8 % 39.9 MCV Latest Ref Range: 82.6 - 94.4 fL 90.9 MCH Latest Ref Range: 27.1 - 32.0 pg 29.8 MCHC Latest Ref Range: 31.7 - 35.0 gm/dL 32.8 RDWSD Latest Ref Range: 37.0 - 46.0 fL 40.0 RDWCV Latest Ref Range: 11.5 - 14.1 % 11.9 Platelets Latest Ref Range: 145 - 357 x10(3)/mcL 274 MPV Latest Ref Range: 7.6 - 12.9 fL 9.2 nRBC % Auto Latest Units: % 0.0 nRBC Abs Auto Latest Ref Range: 0.000 - 0.000 x10(3)/mcL 0.000 Neutr Abs (ANC) Latest Ref Range: 1.70 - 6.10 x10(3)/mcL 3.11 Neutrophils % Latest Units: % 51.3 Immature Gran % Latest Units: % 0.30 Lymphocytes % Latest Units: % 38.9 Monocytes % Latest Units: % 7.2 Eosinophils % Latest Units: % 1.6 Basophils % Latest Units: % 0.7 Ana Gran Abs Latest Ref Range: 0.00 - 0.04 x10(3)/mcL 0.02 Lymphocytes Abs Latest Ref Range: 0.9 - 3.2 x10(3)/mcL 2.4 Monocyte Abs Latest Ref Range: 0.3 - 0.9 x10(3)/mcL 0.4 Eosinophils Abs Latest Ref Range: 0.0 - 0.4 x10(3)/mcL 0.1 Basophils Abs Latest Ref Range: 0.0 - 0.1 x10(3)/mcL 0.0 Total Protein Latest Ref Range: 6.1 - 8.0 gm/dL 7.6 Albumin Latest Ref Range: 3.2 - 5.2 gm/dL 4.4 Total Bilirubin Latest Ref Range: 0.2 - 1.3 mg/dL 0.3 Bili, Direct Latest Ref Range: 0.0 - 0.3 mg/dL 0.1 Alk Phos Latest Ref Range: 35 - 105 unit/L 77 AST Latest Ref Range: 0 - 30 unit/L 18 ALT Latest Ref Range: 0 - 30 unit/L 19 CRP Latest Ref Range: <=4.9 mg/L 1.3 Anorectal manometry: ??IMPRESSION?? No overall evidence of dyssynergic defecation on anorectal manometry or balloon expulsion test. ?? Resting anal sphincter pressure reflecting internal sphincter function was??elevated. Maximum squeeze pressures reflecting external sphincter function were??normal. ?? Rectal sensation was??hypersensitive. ?? IMPRESSION/PLANS:??Faye Malinda Mahoney??is a 59 y.o.??with PMH significant for hemorrhoidectomy??with??ileocolonic Crohn's disease presents for f/u on these issues: ?? 1. Crohn's disease, on Humira 40 mg every other week. Having more LLQ pain, triggered if she eats more fiber foods. Will get ADA levels to help guide therapy Labs today for CBC, CMP, ESR, CRP and continue lab surveillance Stool tests for C diff and calprotectin Avoid triggers like high fiber foods for now. Seems to tolerate fiber supplements and will stay on this Will get MRE and Colonoscopy to restage disease ??2. Perianal pain with difficulty passing stools. We obtained an anal manometry , see above and this showed No overall evidence of dyssynergic defecation on anorectal manometry or balloon expulsion test.Resting anal sphincter pressure reflecting internal sphincter function was??elevated.Maximum squeeze pressures reflecting external sphincter function were??normal. Rectal sensation was??hypersensitive. Continue Benefiber and Sitz bath. Continue Mag Citrate to keep stools soft. She reports allergic to Miralax. Seeing an Associate Theatre Professor July 2019. 3. Perianal Tiffani dermatitis -Sitz bath and try Mycolog ointment to affected areas x 2 weeks 4. Stomach , esophageal discomfort( raw sensation). Sxs improved since she started OTC Prilosec 20 mg once daiy. Will stay on this for now. ??- ??will get EGD For now, - Labs: CBC, CMP, ESR, CRP, ADA levels - Stool tests: C diff and calprotectin - MRE, EGD, Colonoscopy - Mycolog ointment, apply tiny amount sparingly to perianal area BID x 2 weeks - Sitz Bath after each BM - Take Mag citrate to keep stool soft - Continue Humira 40 mg Q 2 weeks for now - Continue Prilosec OTC 20 mg once daily - Continue Benefiber and Sitz bath ?? F/U with Dr. Christopher as planned? documented in this encounter Plan of Treatment Upcoming Encounters Date Type Department Care Team (Late st Contact Info) Description 07/18/2024 1:00 PM EDT TH Visit (TeleHealth) [place] [phone] Malinda Christopher MD [facility] [place] [place] [address] documented as of this encounter Goals Goal Patient Goal Type Associated Problems Recent Progress Patient-Stated? Author [facility] Medication Compliance and Understanding Patient Facing Action Plan Lakeisha Matos, [facility] Note: Achieve and maintain control of Crohn's symptoms as assessed by specialist every 3 to 6 months or more documented as of this encounter Procedures Procedure Name Priority Date/Time Associated Diagnosis Comments ADALIMUMAB AB Routine 05/16/2019 10:47 AM EDT HC VENIPUNCTURE Routine 05/16/2019 10:47 AM EDT Crohn's disease of both small and large intestine with rectal bleeding HC C-REACTIVE PROTEIN Routine 05/16/2019 10:47 AM EDT Crohn's disease of both small and large intestine with rectal bleeding HEMOGRAM Routine 05/16/2019 10:47 AM EDT Crohn's disease of both small and large intestine with rectal bleeding DIFFERENTIAL, AUTOMATED Routine 05/16/2019 10:47 AM EDT Crohn's disease of both small and large intestine with rectal bleeding HC ESR-SEDIMENTATION RATE, BLOOD Routine 05/16/2019 10:47 AM EDT Crohn's disease of both small and large intestine with rectal bleeding HC CBC,PLT & AUTO DIFF Routine 0 10:47 AM EDT Crohn's disease of both small and large intestine with rectal bleeding COMPREHENSIVE METABOLIC PANEL Routine 05/16/2019 10:47 AM EDT Crohn's disease of both small and large intestine with rectal bleeding documented in this encounter Results * MRI Enterography wwo Contrast (07/08/2019 12:07 PM EDT) Anatomical Region Laterality Modality Abdomen Magnetic Resonan ce Impressions 07/08/2019 3:43 PM EDT 1. ??Persistent circumferential wall thickening of the 10 cm segment of descending/sigmoid colon with increased transmural and adjacent mesenteric inflammation. 2. ??New circumferential wall thickening of a 5 cm segment of distal ileum with transmural enhancement, however, no mesenteric inflammation. I have personally reviewed the image(s) and the resident's interpretation and agree with the findings, Jitendra Walden at 07/08/2019 3:43 PM Thank you for letting us participate in the care of this patient. For questions regarding this report, please contact the number below. ? Electronically signed by: Jitendra Walden [facility] ([phone]), at 07/08/2019 3:43 PM Narrative 07/08/2019 3:43 PM EDT EXAMINATION: MRI ENTEROGRAPHY WWO CONTRAST CLINICAL HISTORY: Crohn's disease, c/o LLQ pain, evaluate extent of disease TECHNIQUE: ??MRI of the abdomen and pelvis was performed with images obtained prior to and following the intravenous administration of 12ml of Dotarem. ??0.5mg glucagon was also administered. ??Breeza was administered as an oral contrast. COMPARISON: MRE 05/03/2018 and 10/29/2017. FINDINGS: GI tract: Circumferential wall thickening with luminal narrowing involving the sigmoid colon and a similar distribution to the prior studies, involving approximately 10 cm segment. There is increased moderate transmural enhancement in a layered pattern which is increased approximately. Decreased peristaltic motion. ??There is a new 5 cm segment of circumferential distal ileum circumferential wall thickening in the right abdomen with marked homogeneous transmural enhancement. This segment is aperistaltic and appears persistently nondistended. Disease location: Distal descending/sigmoid colon and distal ileum. # diseased segments:2 Length of involvement: 10 cm and 5 cm Imaging appearance: Inflammation: Increased in the descending/sigmoid colon. Increased in the distal ileum. Stricture: Luminal narrowing in both segments. Penetrating disease: Present in the descending/sigmoid colon. Peritoneum/mesentery: Increased inflammation in the sigmoid mesentery. Change from prior: Increased inflammation in the descending/sigmoid colon. New segment of active disease in the distal ileum. Liver: Normal signal, no lesions. Bile ducts: Nondilated. Gallbladder: Surgically absent Pancreas: Normal. Spleen: Normal. Adrenals: Normal. Kidneys: Right interpolar subcentimeter renal cyst. No hydronephrosis. Lymph nodes: No lymphadenopathy. Reproductive structures: The uterus is surgically absent. No adnexal mass. Osseous structures: No marrow signal abnormality. Procedure Note Jitendra Walden MD - 07/08/2019 EXAMINATION: MRI ENTEROGRAPHY WWO CONTRAST CLINICAL HISTORY: Crohn's disease, c/o LLQ pain, evaluate extent ofdisease TECHNIQUE: MRI of the abdomen and pelvis was performed with imagesobtained prior to and following the intravenous administration of 12ml of Dotarem.0.5mg glucagon was also administered. Breeza was administered as an oralcontrast. COMPARISON: MRE 05/03/2018 and 10/29/2017. FINDINGS: GI tract: Circumferential wall thickening with luminal narrowing involvingthe sigmoid colon and a similar distribution to the prior studies, involving approximately 10 cm segment. There is increased moderate transmuralenhancement in a layered pattern which is increased approximately. Decreasedperistaltic motion. There is a new 5 cm segment of circumferential distal ileum circumferential wall thickening in the right abdomen with markedhomogeneous transmural enhancement. This segment is aperistaltic and appearspersistently nondistended. Disease location: Distal descending/sigmoid colon and distal ileum. # diseased segments:2 Length of involvement: 10 cm and 5 cm Imaging appearance: Inflammation: Increased in the descending/sigmoid colon. Increased in thedistal ileum. Stricture: Luminal narrowing in both segments. Penetrating disease: Present in the descending/sigmoid colon. Peritoneum/mesentery: Increased inflammation in the sigmoid mesentery. Change from prior: Increased inflammation in the descending/sigmoid colon.New segment of active disease in the distal ileum. Liver: Normal signal, no lesions. Bile ducts: Nondilated. Gallbladder: Surgically absent Pancreas: Normal. Spleen: Normal. Adrenals: Normal. Kidneys: Right interpolar subcentimeter renal cyst. No hydronephrosis. Lymph nodes: No lymphadenopathy. Reproductive structures: The uterus is surgically absent. No adnexalmass. Osseous structures: No marrow signal abnormality. IMPRESSION 1. Persistent circumferential wall thickening of the 10 cm segment of descending/sigmoid colon with increased transmural and adjacentmesenteric inflammation. 2. New circumferential wall thickening of a 5 cm segment of distal ileumwith transmural enhancement, however, no mesenteric inflammation. I have personally reviewed the image(s) and the resident's interpretationand agree with the findings, Jitendra Walden at 07/08/2019 3:43 PM Thank you for letting us participate in the care of this patient. Forquestions regarding this report, please contact the number below. Fide Donnelly HAY STACKER OPERATOR IMG MRI ORDERABLE S * (ABNORMAL) Adalimumab Ab (05/16/2019 10:47 AM EDT) Adalimumab Antibody (JULY) 28.7(H) <14.0 AU/mL [facility] Comment: Presence of wxxebwdw-cd-qvxbbobpam detected, which correlates with low concentration of adalimumab. Gnvjsmdrqz-lb-eizsspqmrx may be associated with increased clearance and lower circulating concentration of adalimumab. ADDITIONAL INFORMATION This test was developed and its performance characteristics determined by [facility] in a manner consistent with CLIA requirements. This test has not been cleared or approved by the U.S. Food and Drug Administration. Test Performed by: [facility] [address] [place] [address] Armhole Raiser Lockstitch: Fermin Gordillo M.D. Ph.D.; IA# [id number] Blood specimen (specimen) 05/16/2019 10:47 AM EDT 05/16/2019 10:56 AM EDT Fide Mcbayronantonio HAY STACKER OPERATOR CHEMISTRY ORDERAB LES [facility] [place] [address] * Differential, Automated (05/16/2019 10:47 AM EDT) Neutrophil % 59.4 % [facility] Neutrophil Absolute 4.20 1.70 - 6.10 x10(3)/[facility] Lymph % 28.6 % [facility] Lymphocytes Abs 2.0 0.9 - 3.2 x10(3)/[facility] Monocyte % 9.2 % [facility] Monocyte Abs 0.6 0.3 - 0.9 x10(3)/[facility] Eos % 2.1 % [facility] Eosinophils Abs 0.2 0.0 - 0.4 x10(3)/[facility] Basophil % 0.4 % [facility] Baso Absolute 0.0 0.0 - 0.1 x10(3)/[facility] Immature Gran % 0.30 % [facility] Comment: Immature granulocytes(IG's)percentage and absolute count will include metamyelocytes, myelocytes, and promyelocytes. Blood smears from CBCs yielding IG's will be scanned manually for concordance. If this scan disagrees with the automated IG or if promyelocytes are noted, a manual differential will be performed. Immature Gran Absolute 0.02 0.00 - 0.04 x10(3)/[facility] Blood specimen (specimen) 05/16/2019 10:47 AM EDT 05/16/2019 10:56 AM EDT Narrative Resulting Agency Comment Spec In Lab Fide Mcbayronantonio HAY STACKER OPERATOR HEMATOLOGY ORDERA BLES Performing Organization Address City/[facility]/ZIP Co de Phone Number [facility] [place] [address] * (ABNORMAL) Hemogram (05/16/2019 10:47 AM EDT) White Blood Cell 7.1 4.0 - 9.5 x10(3)/mc L [facility] Red Blood Cell 4.28 4.00 - 5.21 x10(6)/mc L [facility] Hemoglobin 12.5 11.7 - 15.5 gm/dL [facility] Hematocrit 39.5 35.7 - 45.8 % [facility] Mean Cell Volume 92.3 82.6 - 94.4 fL [facility] Mean Cell Hemoglobin 29.2 27.1 - 32.0 pg [facility] Mean Cell Hemoglobin Concentration 31.6(L) 31.7 - 35.0 gm/dL [facility] Platelet 343 145 - 357 x10(3)/mc L [facility] RDW Standard Deviation 41.1 37.0 - 46.0 fL [facility] RDW coefficient of variation 12.1 11.5 - 14.1 % [facility] Mean Platelet Volume 8.6 7.6 - 12.9 fL [facility] NRBC% auto 0.0 % [facility] NRBC Absolute 0.000 0.000 - 0.000 x10(3)/mc L [facility] Blood specimen (specimen) 05/16/2019 10:47 AM EDT 05/16/2019 10:56 AM EDT Narrative Resulting Agency Comment Spec In Lab Fide Mcbayronantonio HAY STACKER OPERATOR HEMATOLOGY ORDERA BLES Performing Organization Address City/[facility]/ZIP Co de Phone Number [facility] [place] [address] * (ABNORMAL) Adalimumab Quant with Reflex to Antibody (05/16/2019 10:47 AM EDT) Adalimumab Level (JULY) 7.6(L) mcg/mL [facility] Comment: For clinical assessment of response to therapy, adalimumab should be measured at trough. When adalimumab trough concentrations are greater than 8.0 mcg/mL, clinically relevant vpwqseohqz-cd-txfgnyrdxl are unlikely and reflex testing will not be performed. REFERENCE VALUE Limit of Quantitation = 0.8 mcg/mL ADDITIONAL INFORMATION This test was developed and its performance characteristics determined by [facility] in a manner consistent with CLIA requirements. This test has not been cleared or approved by the U.S. Food and Drug Administration. Test Performed by: [facility] [place] [address] Armhole Raiser Lockstitch: Fermin Gordillo M.D. Ph.D.; CLIA# [id number] Blood specimen (specimen) 05/16/2019 10:47 AM EDT 05/16/2019 4:17 PM EDT Narrative Resulting Agency Comment Spec In Lab Fide Donnelly APRN LAB SEND OUT JADYN TILLMAN [facility] [place] [address] * (ABNORMAL) CRP, acute inflammation (05/16/2019 10:47 AM EDT) C-Reactive Protein 32.8(H) <=4.9 mg/L [facility] Blood specimen (specimen) 05/16/2019 10:47 AM EDT 05/16/2019 10:56 AM EDT Narrative Resulting Agency Comment Spec In Lab Elida C Dragnev HAY STACKER OPERATOR CHEMISTRY ORDERAB LES Performing Organization Address [facility] Co de Phone Number [facility] [place] [address] * (ABNORMAL) Sedimentation rate (05/16/2019 10:47 AM EDT) Sedimentation Rate Automated 42(H) 2 - 39 mm/hr [facility] Comment: Effective February 16, 2019 new capillary photometric technology has resulted in a change in reference ranges. It is recommended that each ESR result be reviewed with its own age appropriate reference range. Blood specimen (specimen) 05/16/2019 10:47 AM EDT 05/16/2019 10:56 AM EDT Narrative Resulting Agency Comment Spec In Lab ElidaJeffery Donnelly APRN HEMATOLOGY ORDERA BLES Performing Organization Address [facility] Co de Phone Number [facility] [place] [address] * (ABNORMAL) Comprehensive metabolic panel (non-fasting) (05/16/2019 10:47 AM EDT) Pathologist [facility] [place] Glucose 99 65 - 199 mg/dL [facility] Comment:Diabetes: >=200 mg/d L plus symptoms Blood Urea Nitrogen 7(L) 8 - 18 mg/dL [facility] Creatinine 0.56(L) 0.70 - 1.20 mg/dL [facility] Sodium 140 135 - 145 mmol/L [facility] Potassium 4.3 3.5 - 5.0 mmol/L [facility] Comment: Please note: ??Patients with WBC >100,000 may have falsely elevated Potassium levels. ??For accurate Potassium quantification in these patients send serum separator tube (gold top) for subsequent determinations. ??Contact the Clinical Chemistry Laboratory if there are any questions. Chloride 102 98 - 107 mmol/L [facility] Carbon Dioxide 27 22 - 31 mmol/L [facility] Anion Gap 11 5 - 15 mmol/L [facility] Calcium 9.5 8.5 - 10.5 mg/dL [facility] Protein, Total 7.3 6.1 - 8.0 gm/dL [facility] Albumin 4.2 3.2 - 5.2 gm/dL [facility] Aspartate Aminotransferase 24 0 - 30 unit/L [facility] Alanine Aminotransferase 20 0 - 30 unit/L [facility] Alkaline Phosphatase 109(H) 35 - 105 unit/L [facility] Bilirubin, Total 0.2 0.2 - 1.3 mg/dL [facility] Est Glomerular Filtration Rate 101 >=60 mL/min/1. 73 m?? [facility] Comment: The eGFR was calculated using the CKD-EPI equation. As with all creatinine based estimates of kidney function, eGFR values calculated with the CKD-EPI equation are not accurate in patients with acute kidney failure, extremes of body mass or the acutely ill. [email or web address] Backlinks/[email or web address] [email or web address] eGFR 117 >=60 mL/min/1. 73 m?? [facility] Comment: The eGFR was calculated using the CKD-EPI equation. As with all creatinine based estimates of kidney function, eGFR values calculated with the CKD-EPI equation are not accurate in patients with acute kidney failure, extremes of body mass or the acutely ill. [email or web address] [email or web address] Blood specimen (specimen) 05/16/2019 10:47 AM EDT 05/16/2019 10:56 AM EDT Narrative Resulting Agency Comment Spec In Lab Fide Donnelly HAY STACKER OPERATOR CHEMISTRY ORDERAB LES [facility] [place] [address] documented in this encounter Visit Diagnoses Diagnosis Crohn's disease of both small and large intestine with rectal bleeding Regional enteritis of small intestine with large intestine Crohn's disease of both small and large intestine with rectal bleeding Regional enteritis of small intestine with large intestine documented in this encounter Care Teams Irrigation Specialist Relationship Specialty Start Date End Date Valarie Phillips MD [address] [place] [address] PCP - General General Internal Medicine 09/06/17 documented as of this encounter
--- OUTSIDE RECORDS SUMMARY | 2024-04-14 02:13 | XMS_ITS | Encounter Summary ---
Author Organization [facility] [place] [address] Care Team Providers Care Equipment Engineering Technician Name Role Phone Valarie Phillips MD Primary Care Provider [phone] Reason for Visit * Reason Comments Follow-up Encounter Details Date Type Department Care Team (Late st Contact Info) Description 10/17/2019 8:00 AM EDT [place] [phone] Flakita Boggs MD [facility] DR [facility]BOR[facility] [address] Drug allergy Social History Tobacco Use Types Packs/Day Years [...] Sign Reading Time Taken Comments Blood Pressure 140/66 10/17/2019 11:50 AM EDT Pulse 69 10/17/2019 11:50 AM EDT Temperature 36.5 ??C (97.7 ??F) 10/17/2019 8:00 AM ED T Respiratory Rate 16 10/17/2019 11:50 AM EDT Oxygen Saturation 100% 10/17/2019 11:50 AM EDT Inhaled Oxygen Concentration - - Weight 61.2 kg (135 lb) 10/17/2019 8:00 AM EDT Height 149.9 cm (4' 11) 10/17/2019 8:00 AM EDT Body Mass Index 27.27 10/17/2019 8:00 AM EDT documented in this encounter Progress Notes * Earnestine Jose RN - 10/17/2019 8:00 AM EDT Oral drug challenge: Polyethylene Glycol Pre-assessment: BS clear. No rashes. Oropharynx clear. 0820 - 25ml (1.7Gms) Polyethylene Glycol given - wait 30minutes - about 10 minutes patient stated she felt her breathing change but she said she wanted to wait. No SOB, BS clear. At the 30 minute avril, patient stated her breathing was fine but she definitely felt some mild itchiness in her mouth and throat. Exam: BS clear. Oropharynx clear. No rashes or increased redness. VSS. Patient examined by Dr. Boggs Wait another [address] Boggs. 0927 - Patient states she feels slightly better but still having mild itchiness in mouth and throat. Dr. Boggs notified. Examined by Dr. Boggs. 0945 - FEV1 1.75, PEF 310. 0946 - Given Polyethylene Glycol 75ml (5.1g) - wait 30 minutes - no reaction, and previous symptomshave resolved. 1050 - given Polyethylene Gycol 150 ml (10.2 Gms) - no reaction Post-assessment: BS clear. Oropharynx clear. No rashes or redness. Patient denies any symptoms at this point. VSS. * Flakita Boggs MD - 10/17/2019 8:00 AM EDT CC: follow up HPI: Janice Mahoney is a 59 y.o. female with PMH Crohn's, protein C deficiency presenting for followup of drug allergy. Patient returns for challenge to polyethylene glycol. Please see initial note on July 12, 2019, but the patient has had contact dermatitis from sunscreen and hair dye which she felt was due to PEG. I felt this was more likely a contact allergy to another component. Patient stated that once 10y ago after taking liquid cold medicine she got really red and kind of short of breath which lasted a cou ple hours; it had PEG in it. 5 years ago she took cold medicine and got severe hives and shortness of breath but this did not have PEG. Thus, there was only one episode of possible IgE-mediated sx around PEG and it would not explain another medication episode. At her last visit we did skin testing to PEG and it was negative. Since her last visit the patient reports no new allergic drug reactions or suspected reactions to polyethylene glycol. She feels well and denies any itching, rash, recent cold or flu, chest pain, shortness of breath, nausea, vomiting. She is not on any new medications since her last visit. She has C rohn's disease and diarrhea at baseline, and she would consider her current level of diarrhea to beat her baseline. She brings MiraLAX today for challenge. ROS: per HPI, otherwise negative. Patient Active Problem List Diagnosis Code ??? Anal pain K62.89 ??? Clotting disorder D68.9 ??? Diverticulitis of large intestine without perforation or abscess without bleeding K57.32 ??? Gallstones K80.20 ??? Crohn's disease of colon with complication K50.119 Past Medical History: Diagnosis Date ??? Diverticulitis ??? Hemorrhagic disorder protein C deficiency Outpatient Medications Marked as Taking for the 10/17/19 encounter (Office Visit) with Flakita Boggs MD Medication Sig Dispense Refill ??? adalimumab 40 mg/0.4 mL Pen Injector Kit Inject the contents of one pen (40 mg) subcutaneously once every 7 days. 6 kit 1 ??? omeprazole (PriLOSEC) 20 mg Capsule, Delayed Release(E.C.) Take 1 capsule by mouth daily. 90 capsule 3 ??? nystatin-triamcinolone (MYCOLOG II) Cream Apply topically 2 times daily. Apply a tiny amount asthin layer to perianal area twice daily x2 weeks then stop 30 g 0 ??? acetaminophen (TYLENOL) 325 mg Tablet Take 325 mg by mouth 2 times daily as needed for Pain. ??? NIFEdipine, Bulk, Powder 0.2% ointment apply to anus two times daily 2.5 g 0 ??? acyclovir (ZOVIRAX) 200 mg Capsule BP 140/66 Pulse 69 Temp 36.5 ??C (97.7 ??F) Resp 16 Ht 149.9 cm (4' 11) Wt 61.2 kg (135 lb) SpO2 100% BMI 27.27 kg/m?? Constitutional: awake, alert, no acute distress Head: [...] of speech, normal thought process and content Polyethylene glycol challenge (17 g dissolved in 250 mL of water creating a solution of 0.068 g/mL). 1) 25 mL (1.7 g) given at 0820. At 0855 vital signs are stable and patient reported symptoms of itchy mouth. She was evaluated and reported no other symptoms, no itchy skin, no trouble breathing. On exam her lungs were clear, she had no rash, oropharynx is clear without edema or erythema, she was in no acute distress. She was watched for an additional 30 minutes at which time she reported that her symptoms had improved but had not completely resolved, and no new symptoms have developed. No objective findings were observed and so we discussed options at this point include continuing on the challenge or leaving it on her allergy list without further clarifying the allergy. I felt it was unlikely this represented allergy and patients can experience subjective symptoms during challenge that do not progress. I recommended proceeding with a challenge if the patient was comfortable with this. Patient amenable to proceeding but preferred not to do a full dose, so I recommended a 30% dose next. She was supportive of this. 2) Obtained baseline FEV1 prior to giving dose #2, it was 1.75 L/min. 75 mL (5.1 g) given at 0946. No reaction noted after 30 minutes. 3) 150 mL (10.2 g) given at 1050. No reaction noted after 60 minutes. At the end of the challenge patient was evaluated and she reported no symptoms and resolution of the itchy mouth that she had experienced previously. No objective evidence of allergy to polyethylene glycol occurred and improvement in the subjective symptoms of itchy mouth after repeated larger doses indicates this was not allergic in etiology. Negative challenge to PEG. Time of d/c: 1155 ASSESSMENT/PLAN: 59 y.o. female with negative challenge to polyethylene glycol. Patient passed the challenge today to polyethylene glycol and I would not consider her allergic to this at this time. She can receive medications that contain it or take things like MiraLAX. she received a full dose of MiraLAX today in the office without any objective evidence of allergy and she was well-appearing at the time of discharge. Regarding her other drug reactions - if she is interested in identifying a contact reaction that might explain the sunscreen and hair dye reactions, she can see dermatology for patch testing. - As far as the reaction that she experienced to cold medicine that did not contain polyethylene glycol, is unknown known what would have triggered this for her since I do not have the ingredient list. We discussed that she would just avoid [id number] cold medicine cocktails like the one she consumed prior to one of the reactions. Return to office as needed. Flakita Boggs MD documented in this encounter Plan of Treatment Upcoming Encounters Date Type Department Care Team (Late st Contact Info) Description 07/18/2024 1:00 PM EDT TH Visit (TeleHealth) [place] [address] Malinda Christopher MD [facility] [place] [address] documented as of this encounter Goals Goal [...] Procedure Name Priority Date/Time Associated Diagnosis Comments ALLERGY SCAN 10/17/2019 12:00 AM EDT documented in this encounter Results * SCAN DOC: ALLERGY (10/17/2019 12:00 AM EDT) Narrative 10/17/2019 12:00 AM EDT Ordered by an unspecified provider. Scanning Provider MEDIA MGR SCAN EXT O RDR/RSLT documented in this encounter Visit Diagnoses Diagnosis Drug allergy Other drug allergy documented in this encounter Care Teams Equipment Engineering Technician Relationship Specialty Start Date End Date Valarie Phillips MD [address] [place] [address] PCP - General General Internal Medicine 09/06/17 documented as of this encounter
--- OUTSIDE RECORDS SUMMARY | 2024-04-14 02:13 | XMS_ITS | Encounter Summary ---
Author Organization [facility] [place] [address] Care Team Providers Care System Specialist Name Role Phone Valarie Phillips MD Primary Care Provider [phone] Reason for Visit * Reason Comments Specialty Pharmacy Review Encounter Details Date Type Department Care Team (Late st Contact Info) Description 12/19/2019 Specialty [place] [address] Lary Mckinney, [facility] Social History Tobacco Use Types Packs/Day [...] encounter Progress Notes * Lary Mckinney - 12/19/2019 11:59 PM EDT [facility] has completed a benefits investigation for Janice Mahoney to review theireligibility to fill at [facility]. Per patient's medication list they are prescribed Humira and currently fill at the [facility]. documented in this encounter Plan of Treatment Upcoming Encounters Date Type Department Care Team (Late st Contact Info) Description 07/18/2024 1:00 PM EDT TH Visit (TeleHealth) [place] [address] Malinda Christopher MD [facility] [place] [address] documented as of this encounter Goals Goal Patient Goal Type Associated Problems Recent Progress Patient-Stated? Author [facility] Medication Compliance and Understanding Patient Facing Action Plan Lakeisha Matos, [facility] Note: Achieve and maintain control of Crohn's symptoms as assessed by specialist every 3 to 6 months or more documented as of this encounter Visit Diagnoses Not on filedocumented in this encounter Care Teams System Specialist Relationship Specialty Start Date End Date Valarie Phillips MD [address] [place] [address] PCP - General General Internal Medicine 09/06/17 documented as of this encounter
--- OUTSIDE RECORDS SUMMARY | 2024-04-14 02:13 | XMS_ITS | Encounter Summary ---
[place] [address] Care Team Providers Care Marshmallow Machine Operator Name Role Phone Valarie Phillips MD Primary Care Provider Reason for Visit * Reason Onset Date Comments Prior Authorization 03/14/2019 Humira Encounter Details Date Type Department Care Team (Late st Contact Info) Description 03/14/2019 [place] [phone] Jolly Lee Prior Authorization (Humira) Social History Tobacco Use Types Packs/Day Years [...] encounter Miscellaneous Notes * Telephone Encounter - Jolly Lee - 03/15/2019 12:44 PM EST [facility], Prior Authorization Approval Medication Name: Humira FILLABLE AT [facility]? yes APPROVAL DATES: 02/12/2019 - 03/14/2020 SPECIFIC INS REQUIREMENT: CASE/REFERENCE # [id number] APPROVAL NOTIFICATION RECEIVED VIA: Fax COPAY: $1,600.00 COPAY ASSISTANCE NEEDED?: yes NOTES: Patient is signed up for Humira copay card, bringing copay down to $5.00 * Telephone Encounter - Jolly Lee - 03/14/2019 8:38 AM EST [facility], Medication Prior Authorization Patient: Janice Mahoney Patient : 1960 Patient Address: [address] [place] [phone] (home) Medication: Humia Subscriber Insurance: [facility] Fax: Physician: Fide Donnelly Sent Via: [facility] Andujar: [email or web address] Medication Strength Frequency Requested: Humira 40mg/0.4mL PNKT: inject 1 pen (40mg) every 14 days. Qty/Day Supply: 05/06 New Start: no Diagnosis & ICD-10 Code: Crohn's Disease K50.811 documented in this encounter Plan of Treatment Upcoming Encounters Date Type Department Care Team (Late st Contact Info) Description 07/18/2024 1:00 PM EDT TH Visit (TeleHealth) [place] [address] Malinda Christopher MD [facility] [place] [address] documented as of this encounter Goals Goal Patient Goal Type Associated Problems Recent Progress Patient-Stated? Author [facility] Medication Compliance and Understanding Patient Facing Action Plan Lakeisha Matos, [facility] Note: Achieve and maintain control of Crohn's symptoms as assessed by specialist every 3 to 6 months or more documented as of this encounter Visit Diagnoses Not on filedocumented in this encounter Care Teams Marshmallow Machine Operator Relationship Specialty Start Date End Date Valarie Phillips MD [address] [place] [address] PCP - General General Internal Medicine 09/06/17 documented as of this encounter
--- OUTSIDE RECORDS SUMMARY | 2024-04-14 02:13 | XMS_ITS | Encounter Summary ---
Author Organization Formerly [facility] [place] [address] Care Team Providers Care Elevator Builder Name Role Phone Valarie Phillips MD Primary Care Provider Encounter Details Date Type Department Care Team (Latest Contact Info) Description 12/19/2019 10:00 AM EDT Laboratory Appointment Lab [address] [place] [phone] Crohn's disease of colon with complication Social [...] PM EDT TH Visit (TeleHealth) [place] [address] Malinda Christopher MD [facility] [place] [address] documented as of this encounter Goals Goal [...] Associated Diagnosis Comments HC C-REACTIVE PROTEIN Routine 12/19/2019 10:08 AM EDT Crohn's disease of colon with complication HEMOGRAM Routine 12/19/2019 10:08 AM EDT Crohn's disease of colon with complication DIFFERENTIAL, AUTOMATED Routine 12/19/2019 10:08 AM EDT Crohn's disease of colon with complication HC CBC,PLT & AUTO DIFF Routine 12/19/2019 10:08 AM EDT Crohn's disease of colon with complication HC VENIPUNCTURE Routine 12/19/2019 10:08 AM EDT Crohn's disease of colon with complication documented in this encounter Results * Differential, Automated (12/19/2019 10:08 AM EDT) Neutrophil % 44.1 % [facility] Neutrophil Absolute 2.53 1.70 - 6.10 x10(3)/[facility] Lymph % 42.6 % [facility] Lymphocytes Abs 2.4 0.9 - 3.2 x10(3)/[facility] Monocyte % 9.7 % [facility] Monocyte Abs 0.6 0.3 - 0.9 x10(3)/[facility] LAB[facility] Eos % 2.4 % [facility] Eosinophils Abs 0.1 0.0 - 0.4 x10(3)/[facility] Basophil % 1.0 % [facility] Baso Absolute 0.1 0.0 - 0.1 x10(3)/[facility] LABORATORY Immature Gran % 0.20 % [facility] Comment: Immature granulocytes(IG's)percentage and absolute count will include metamyelocytes, myelocytes, and promyelocytes. Blood smears from CBCs yielding IG's will be scanned manually for concordance. If this scan disagrees with the automated IG or if promyelocytes are noted, a manual differential will be performed. Immature Gran Absolute 0.01 0.00 - 0.04 x10(3)/[facility] LABOR[facility]ORY Blood specimen (specimen) 12/19/2019 10:08 AM EDT 12/19/2019 10:12 AM EDT Narrative Resulting Agency Comment Spec In Lab L Tai Christopher MD HEMATOLOGY ORDERABLE S [facility] [place] [address] * (ABNORMAL) Hemogram (12/19/2019 10:08 AM EDT) White Blood Cell 5.8 4.0 - 9.5 x10(3)/[facility] LABORATORY Red Blood Cell 4.24 4.00 - 5.21 x10(6)/[facility] LAB[facility] Hemoglobin 12.5 11.7 - 15.5 gm/dL [facility] Hematocrit 39.6 35.7 - 45.8 % [facility] Mean Cell Volume 93.4 82.6 - 94.4 fL [facility] Mean Cell Hemoglobin 29.5 27.1 - 32.0 pg [facility] Mean Cell Hemoglobin Concentration 31.6(L) 31.7 - 35.0 gm/dL [facility] Platelet 268 145 - 357 x10(3)/[facility] LABORATORY RDW Standard Deviation 41.1 37.0 - 46.0 [facility] RDW coefficient of variation 12.0 11.5 - 14.1 % [facility] Mean Platelet Volume 8.7 7.6 - 12.9 fL [facility] NRBC% auto 0.0 % [facility] NRBC Absolute 0.000 0.000 - 0.000 x10(3)/[facility] LAB[facility] Blood specimen (specimen) 12/19/2019 10:08 AM EDT 12/19/2019 10:12 AM EDT Narrative Resulting Agency Comment Spec In Lab L Tai Christopher MD HEMATOLOGY ORDERABLE S Performing Organization Address [facility] Co de Phone Number [facility] [place] [address] * CRP, acute inflammation (12/19/2019 10:08 AM EDT) C-Reactive Protein 1.0 <=4.9 mg/L [facility] Blood specimen (specimen) 12/19/2019 10:08 AM EDT 12/19/2019 10:12 AM EDT Narrative Resulting Agency Comment Spec In Lab L Tai Christopher MD CHEMISTRY ORDERABLES Performing Organization Address [facility] de Phone Number [facility] [place] [address] * Hepatic Function Panel (12/19/2019 10:08 AM EDT) Protein, Total 7.0 6.1 - 8.0 gm/dL [facility] Albumin 4.3 3.2 - 5.2 gm/dL [facility] Aspartate Aminotransferase 20 0 - 30 unit/L [facility] Alanine Aminotransferase 19 0 - 30 unit/L [facility] Alkaline Phosphatase 68 35 - 105 unit/L [facility] Bilirubin, Total 0.3 0.2 - 1.3 mg/dL [facility] Bilirubin, Direct 0.1 0.0 - 0.3 mg/dL [facility] Blood specimen (specimen) 12/19/2019 10:08 AM EDT 12/19/2019 10:12 AM EDT Narrative Resulting Agency Comment Spec In Lab L Tai Christopher MD CHEMISTRY ORDERABLES Performing Organization Address [facility] Co de Phone Number [facility] [place] [address] documented in this encounter Visit Diagnoses Diagnosis Crohn's disease of colon with complication documented in this encounter Care Teams Elevator Builder Relationship Specialty Start Date End Date Valarie Phillips MD [address] [place] [address] PCP - General General Internal Medicine 09/06/17 documented as of this encounter
--- OUTSIDE RECORDS SUMMARY | 2024-04-14 02:13 | XMS_ITS | Encounter Summary ---
Author Organization [facility] [place] [address] Care Team Providers Care Cio Name Role Phone Valarie Phillips MD Primary Care Provider [phone] Encounter Details Date Type Department Care Team (Late st Contact Info) Description 10/12/2019 Refill [place] [address] Fide Donnelly APRN [facility] [place] [address] Social History Tobacco Use Types Packs/Day Years [...] PM EDT TH Visit (TeleHealth) [place] [phone] Malinda Christopher MD [facility] [place] [address] documented as of this encounter Goals Goal Patient Goal Type Associated Problems Recent Progress Patient-Stated? Author [facility] Medication Compliance and Understanding Patient Facing Action Plan Lakeisha Matos, [facility] Note: Achieve and maintain control of Crohn's symptoms as assessed by specialist every 3 to 6 months or more documented as of this encounter Visit Diagnoses Not on filedocumented in this encounter Care Teams Cio Relationship Specialty Start Date End Date Valarie Phillips MD [address] [place] [address] PCP - General General Internal Medicine 09/06/17 documented as of this encounter
--- OUTSIDE RECORDS SUMMARY | 2024-04-14 02:13 | XMS_ITS | Encounter Summary ---
[place] [address] Care Team Providers Care Red Hat Linux Administrator Name Role Phone Valarie Phillips MD Primary Care Provider [phone] Reason for Visit * Reason Onset Date Comments Reminder Appointment 07/04/2019 Encounter Details Date Type Department Care Team (Late st Contact Info) Description 07/04/2019 Telephone [place] [address] Millie Nicole CCMA Reminder Appointment Social History Tobacco Use Types [...] encounter Miscellaneous Notes * Telephone Encounter - Millie Nicole CCMA - 07/04/2019 11:48 AM EDT Called patient to review medications and allergies for their upcoming gastroenterology Type of Appointment: Telehealth appointment. Reach Patient during MA Check: No, Did not leave a message Will try and reach patient closer to appointment time Was able to reach patient. She is ready for her appointment Notes for the provider: Notes for the nurse: documented in this encounter Plan of Treatment Upcoming Encounters Date Type Department Care Team (Late st Contact Info) Description 07/18/2024 1:00 PM EDT TH Visit (TeleHealth) [place] [address] Malinda Christopher MD [facility] [place] [address] documented as of this encounter Goals Goal Patient Goal Type Associated Problems Recent Progress Patient-Stated? Author [facility] Medication Compliance and Understanding Patient Facing Action Plan Lakeisha Matos, [facility] Note: Achieve and maintain control of Crohn's symptoms as assessed by specialist every 3 to 6 months or more documented as of this encounter Visit Diagnoses Not on filedocumented in this encounter Care Teams [employer] Administrator Relationship Specialty Start Date End Date Valarie Phillips MD [address] [facility] [place] [address] PCP - General General Internal Medicine 09/06/17 documented as of this encounter
--- OUTSIDE RECORDS SUMMARY | 2024-04-14 02:13 | XMS_ITS | Encounter Summary ---
Author Organization [facility] [place] [address] Care Team Providers Care Refinery Operator Assistant Name Role Phone Valarie Phillips MD Primary Care Provider [phone] Reason for Visit * Reason Comments Medication Management Encounter Details Date Type Department Care Team (Late st Contact Info) Description 06/20/2019 Specialty [place] [address] Frannie Araya [facility] Social History Tobacco Use Types Packs/Day Years [...] Progress Notes * Frannie Araya RPH - 06/20/2019 8:53 AM EDT Clinical Management Plan: Refill Specialty Pharmacy Consultation; Frannie Araya [facility] Comprehensive Medication Management (CMM) Janice Petty Mahoney Ms. Janice Mahoney is a 59 [...] beneficiary Provider: plan sponsor pharmacist Visit Type: [facility] Follow-up Method of Contact: by telephone Cognitive Ability: good Cognitive Impairment Status Verified this Year: no Allergies and Drug intolerance: Allergies Allergen Reactions ??? [place] ??? Polyethylene Glycol Analogues Hives Medication Reconciliation Discrepancies (compared to [facility] med list) -None New medications: no New [...] were made at the appointment and that [facility] is providing recommendations (summary located at top of note) for provider review and follow up. Frannie Araya RPH 06/20/19 8:54 AM documented in this encounter Plan of Treatment Upcoming Encounters Date Type Department Care Team (Late st Contact Info) Description 07/18/2024 1:00 PM EDT TH Visit (TeleHealth) [place] [address] Malinda Christopher MD [facility] [place] [address] documented as of this encounter Goals Goal Patient Goal Type Associated Problems Recent Progress Patient-Stated? Author [facility] Medication Compliance and Understanding Patient Facing Action Plan Lakeisha Matos [facility] Note: Achieve and maintain control of Crohn's symptoms as assessed by specialist every 3 to 6 months or more documented as of this encounter Visit Diagnoses Not on filedocumented in this encounter Care Teams Refinery Operator Assistant Relationship Specialty Start Date End Date Valarie Phillips MD [address] [place] [address] PCP - General General Internal Medicine 09/06/17 documented as of this encounter
--- OUTSIDE RECORDS SUMMARY | 2024-04-14 02:13 | XMS_ITS | Encounter Summary ---
Author Organization [facility] [place] [address] Care Team Providers Care Plow Shaker Name Role Phone Valarie Phillips MD Primary Care Provider [phone] Reason for Visit * Reason Comments Medication Management Encounter Details Date Type Department Care Team (Late st Contact Info) Description 05/30/2019 Specialty Pharmacy [place] [address] Irlanda Schrader, [facility] Social History Tobacco Use Types Packs/Day Years [...] as of this encounter Progress Notes * Irlanda Schrader [facility] - 05/30/2019 11:13 AM EDT Specialty Pharmacy Consultation; Irlanda Schrader [facility] Comprehensive Medication Management (CMM) Janice Mahoney Diagnosis: Crohn's Disease Therapy Start Date: 11/05/2017 Contact in person or via telephone: telephone Ms. Janice Mahoney is a 59 y.o. (1960) female who was contacted in regard to specialty medication. Spoke with patient regarding Humira. A review of the medication therapy was performed. The medication was Refilled as scheduled, and all medication related questions and concerns were addressed. The specialty pharmacy staff will follow up with the patient 5-7 days prior to next refill. Is the patient willing to proceed with the Clinical Assessment? Yes Summary and Recommendations: Janice Mahoney was contacted via telephone for a review of Humira for the treatment of Crohn's disease. Today I reviewed the patients medications, allergies, and medical history. I reviewed dosing, storage and administration of Humira. She reports injecting in her abdomen with appropriate injection t echnique and rotating sites with each injection. She appropriately stores her Humira in the fridge and disposes in a sharps container. Reviewed that medication is stable at room temperature for 14 days. Patient reports tolerating medication well with no side effects. She is hoping for improvement of symptoms including abdominal pain with the increased dose. She increased to weekly dosing on 05/19/2019. She plans to get a follow up drug level after 4 weeks of treatment on weekly dosing as directed by provider. She plans to get this done on 06/14 prior to her dose due on 06/15. She inquired about getting this lab done at [facility] in [facility]. I will reach out to nursing team to have orders sent if this lab runs the appropriate tests. Last CBC, CRP, and LFT's completed on 05/16/2019. Clinic follow-up needed: yes - as directed by provider Allergies and Drug intolerance: Allergies Allergen Reactions ??? [place] ??? Polyethylene Glycol Analogues Hives Special Dietary or Hydration Requirements: no There is no height or weight on file to calculate BMI. Medication Reconciliation Discrepancies (compared to [facility] med list) yes - removed duplicate omeprazole (confirmed pt taking 20mg) - pt requested removal of meloxicam as provider d/c'd - not currently taking Medication Adherence Patient reported X missed doses [...] Refills needed for supportive medications: not needed Medication List: Current Outpatient Medications Medication Sig Note Dispense Refill ??? adalimumab 40 mg/0.4 mL Pen Injector Kit Inject 40 mg subcutaneously every 7 days. 6 kit 1 ??? nystatin-triamcinolone (MYCOLOG II) Cream Apply topically 2 times daily. Apply a tiny amount asthin layer to perianal area twice daily x2 weeks then stop 30 g 0 ??? UNABLE TO FIND Take by mouth every other day. Med Name: Nuun, OTC supplement ??? omeprazole (PRILOSEC) 20 mg Capsule, Delayed Release(E.C.) Take 20 mg by mouth daily. ??? lidocaine (XYLOCAINE) 2 % jelly Apply [...] takes one capful every other day. ??? predniSONE (DELTASONE) 5 mg Tablet 40 mg x 3 days, 30 mg x 1 day, 20 mg x 1 day, 10 mg x 1 day,5 mg x 1 day (Patient not taking: Reported on 12/09/2017) 11/02/2017: Patient's last day of taper will be 11/03. 19 tablet 0 ??? NIFEdipine, Bulk, Powder 0.2% ointment apply to anus two times daily (Patient not taking: Reported on 12/09/2017) 11/02/2017: Patient is not taking. 2.5 g 0 ??? lactobacillus rhamnosus, GG, (CULTURELLE) 10 billion cell Capsule Take 1 capsule by mouth daily. 11/02/2017: Patient uses 25 billion capsule. ??? DILTIAZEM HCL, BULK, MISC by Misc.(Non-Drug; Combo Route) route. Gel 11/02/2017: Patient is not taking. ??? acyclovir (ZOVIRAX) 200 mg Capsule 11/02/2017: Patient is not taking. ??? Guar Gum Packet Take by mouth. 11/02/2017: Patient is not taking. ??? docusate sodium (COLACE ORAL) Take by mouth. 11/02/2017: As needed. No current facility-administered medications for this visit. Most Recent Vitals: Ht Readings from Last 1 Encounters: 05/16/19 151.1 cm (4' 11.5) Wt Readings from Last 3 Encounters: 05/16/19 62.3 kg (137 lb 4.8 oz) 01/17/19 61.8 kg (136 lb 3.2 oz) 11/05/18 62.3 kg (137 lb 6.4 oz) Temp Readings from Last 3 Encounters: 09/15/17 36.6 ??C (97.9 ??F) BP Readings from Last 3 Encounters: 05/16/19 146/65 01/17/19 132/54 11/05/18 117/61 Pulse Readings from Last 3 Encounters: 05/16/19 77 01/17/19 71 11/05/18 91 Pertinent Lab values: Lab Results Component Value Date NA 140 05/16/2019 K 4.3 05/16/2019 CL 102 05/16/2019 CO2 27 05/16/2019 BUN 7 (L) 05/16/2019 CREATININE 0.56 (L) 05/16/2019 GLUCOSE 99 05/16/2019 CALCIUM 9.5 05/16/2019 Lab Results Component Value Date ALT 20 05/16/2019 AST 24 05/16/2019 ALKPHOS 109 (H) 05/16/2019 BILITOT 0.2 05/16/2019 BILIDIR 0.1 01/17/2019 ALBUMIN 4.2 05/16/2019 PROT 7.3 05/16/2019 Lab Results Component Value Date WBC 7.1 05/16/2019 HGB 12.5 05/16/2019 HCT 39.5 05/16/2019 MCV 92.3 05/16/2019 PLATELET 343 05/16/2019 No results found for: HA1C Immunization History Administered Date(s) Administered ??? Influenza Vaccine w/Preservative, Seasonal, Injectable 01/19/2018, 11/16/2018 ??? Pneumococcal Conjugate (13 Valent) 01/24/2019 ??? Pneumococcal Polyvalent 23 01/26/2018 ??? Tdap Vaccine 12/12/2011 ??? Zoster, Recombinant 01/26/2018, 06/28/2018 Assessment and Recommendations: Type of Medication Management: chronic disease management Referred By: provider Recipient: beneficiary Provider: plan sponsor pharmacist Visit Type: [facility] Follow-up Method of Contact: by telephone Cognitive Ability: good Cognitive Impairment Status Verified this Year: no Drug Interactions Provided the patient with educational material regarding drug interactions: yes Patient Counseling Counseled the patient on the following: reviewed medication changes since last visit, medication safety precautions education provided, drug interaction education provided to patient, doses and administration discussed, safe handling, storage, and disposal discussed, possible adverse effects and management discussed, possible drug and prescription drug interactions discussed, possible drug and OTC drug and food interactions discussed, lab monitoring and follow-up discussed, therapeutic rationale discussed, cost of medications and cost implications discussed, adherence and missed doses discussed, pharmacy contact information discussed, monitoring medication discussed Drug Medication Management Summary Topics discussed: reviewed medication changes since last visit, medication safety precautions education provided, drug interaction education provided to patient, doses and administration discussed, safe handling, storage, and disposal discussed, possible adverse effects and management discussed, possible drug and prescription drug interactions discussed, possible drug and OTC drug and food interactions discussed, lab monitoring and follow-up discussed, therapeutic rationale discussed, cost of medications and cost implications discussed, adherence and missed doses discussed, pharmacy contact information discussed, monitoring medication discussed Number of adverse drug events identified: 0 Time spent: 16-30 min Treatment Outcomes 05/30/2019 1115 Disease progression: Stable Patient Overall Status: Stable Reviewed in detail with patient: Dose appropriateness based on recommended standard dosing Current medication list including OTC medications Medication and disease problems Allergies Comorbid conditions/ Problem List Past adverse events if any Special needs of the patient including physical and cognitive limitations Goals of therapy and management strategies Warnings, precautions, and contraindications Side effects Drug-drug and drug-food interactions Administration instructions including dose, frequency and method Handling, storage, and disposal Verifying expiration dates on products before use Rotating medication inventory to use oldest product first Relevant lab data Patient verbalizes understanding and is able to read-back instructions on self-administration/injection, proper storage, drug stability, importance of adherence and management strategies, side effectavoidance and mitigation strategies, and interruptions in therapy: Yes Physical and Cognitive Assessment: Functional limitations identified: no Cognitive limitations identified: no Concern regarding orientation/memory: no Concern with reasoning/judgement: no Is patient a fall risk: no Other needed information: no Social Assessment: Does the patient have a primary healthcare science specialist? no Does the patient have an emergency contact on file: Yes Does patient need referral to mental health social worker: No Does patient need referral to advocacy group: No Home Health Assessment: Is the patient in a safe home environment? Yes Is the patient able to store their medication as directed? Yes Does the patient have a support network at home? Yes Reviewed potential home safety hazards with patient: Yes Economic Assessment: Patient is agreeable to medication copay: yes Copay Amount: $0 Day Supply: 28d Date Needed: 05/25/2019 Copay assistance required: no Therapy Assessment: Current Medication Dosing/Route/Frequency: Humira 40mg/0.4mL PNKT - Inject the contents of one pen (40mg) SC every 7 days. Appropriate Therapy: Yes Effective: yes - patient hoping to see an improvement with an increase to weekly dosing Patient-Reported Side Effects: no Patient Goals: Patient's specific desired goal: Patient would like to maintain control of her Crohn's disease Measured by: patient reports symptoms and repeat endoscopic exam Time-frame to meet goal: 3 - 6 months Care Plan and Interventions: Care Plan Reviewed and Approved by both Pharmacist and Patient: Yes Did Care Plan Change? No Interventions (if applicable): No Patient experienced change in condition that affects treatment: no Additional care/services needed: no Educational information or adherence tools provided: Yes Additional equipment/supplies required: yes - sharps container with next refill Pharmacist follow-up needed: Yes - follow-up consult in 6 months Patient Satisfaction with Care/Services Provided: Yes Informed patient of specialty pharmacy services: Yes -Patient received welcome packet: Yes Date Received: 12/11/17 Delivery Method: mail ?? -Patient returned signed Rights & Responsibilities: Yes Date Received: 12/11/17 Delivery Method: mail -Patient is aware a licensed pharmacist is available 24 hours a day, 7 days a week to discuss medication-related questions or concerns: Yes -Patient verbalizes understanding of education on the common side effect profile of the medication:Yes -The patient is able to call 911 or seek urgent care if signs/symptoms of allergy or harmful adverse reactions occur: Yes Patient understands no changes to current drug regimen were made at the appointment and that [facility] (summary located at top of note) for provider review and follow up. Irlanda Schrader, [facility] 05/30/19 11:32 AM documented in this encounter Plan of Treatment Upcoming Encounters Date Type Department Care Team (Late st Contact Info) Description 07/18/2024 1:00 PM EDT TH Visit (TeleHealth) [place] [address] Malinda Christopher MD [facility] [place] [address] documented as of this encounter Goals Goal Patient Goal Type Associated Problems Recent Progress Patient-Stated? Author [facility] Medication Compliance and Understanding Patient Facing Action Plan Lakeisha Matos [facility] Note: Achieve and maintain control of Crohn's symptoms as assessed by specialist every 3 to 6 months or more documented as of this encounter Visit Diagnoses Not on filedocumented in this encounter Care Teams Plow Shaker Relationship Specialty Start Date End Date Valarie Phillips MD [address] [place] [address] PCP - General General Internal Medicine 09/06/17 documented as of this encounter
--- OUTSIDE RECORDS SUMMARY | 2024-04-14 02:13 | XMS_ITS | Encounter Summary ---
[place] [address] Care Team Providers Care Manuscript Reader Name Role Phone Valarie Phillips MD Primary Care Provider [phone] Encounter Details Date Type Department Care Team (Late st Contact Info) Description 07/04/2019 Specialty [place] [address] Lary Mckinney, [facility] Social History Tobacco Use Types [...] PM EDT TH Visit (TeleHealth) [place] [id number] Malinda Christopher MD [facility] [place] [address] documented as of this encounter Goals Goal [...] on filedocumented in this encounter Care Teams Manuscript Reader Relationship Specialty Start Date End Date Valarie Phillips MD [address] [place] [address] PCP - General General Internal Medicine 09/06/17 documented as of this encounter
--- OUTSIDE RECORDS SUMMARY | 2024-04-14 02:13 | XMS_ITS | Encounter Summary ---
Author Organization [facility] [place] [address] Care Team Providers Care Head Waiter/Waitress Name Role Phone Valarie Phillips MD Primary Care Provider [phone] Reason for Visit * Reason Comments Medication Management Encounter Details Date Type Department Care Team (Late st Contact Info) Description 09/15/2019 Specialty Pharmacy Pharmacy at [facility] [place] [address] Seble Hong [facility] Social History Tobacco Use Types Packs/Day [...] Progress Notes * Seble Carrington RPH - 09/15/2019 10:28 AM EDT Clinical Management Plan: Refill Specialty Pharmacy Consultation; Seble Carrington Lacy Comprehensive Medication Management (CMM) Janice Malinda Denzel Ms. Janice Mahoney is a 59 y.o. [...] beneficiary Provider: plan sponsor pharmacist Visit Type: [facility] Follow-up Method of Contact: by telephone Cognitive Ability: good Cognitive Impairment Status Verified this Year: no Allergies and Drug intolerance: Allergies Allergen Reactions ??? [place] ??? Polyethylene Glycol Analogues Hives Medication Reconciliation Discrepancies (compared to [facility] med list) -None New medications: no New medical conditions: no New allergies: no Adherence: Medication Adherence Adherence tools used: calendar, directed education Support network for adherence: healthcare provider Are you experiencing any side effects from your medications? no Pt understands no changes to current drug regimen were made at the appointment and that [facility] is providing recommendations (summary located at top of note) for provider review and follow up. Seble Carrington RPH 09/15/19 10:29 AM documented in this encounter Plan of Treatment Upcoming Encounters Date Type Department Care Team (Late st Contact Info) Description 07/18/2024 1:00 PM EDT TH Visit (TeleHealth) [place] [address] Malinda Christopher MD [facility] [place] [address] documented as of this encounter Goals Goal Patient Goal Type Associated Problems Recent Progress Patient-Stated? Author [facility] Medication Compliance and Understanding Patient Facing Action Plan [facility] Note: Achieve and maintain control of Crohn's symptoms as assessed by specialist every 3 to 6 months or more documented as of this encounter Visit Diagnoses Not on filedocumented in this encounter Care Teams Head Waiter/Waitress Relationship Specialty Start Date End Date Valarie Pihllips MD [address] [place] [address] PCP - General General Internal Medicine 09/06/17 documented as of this encounter
--- OUTSIDE RECORDS SUMMARY | 2024-04-14 02:13 | XMS_ITS | Encounter Summary ---
Author Organization [facility] [place] [address] Care Team Providers Care Personal Injury Paralegal Name Role Phone Valarie Phillips MD Primary Care Provider [phone] Encounter Details Date Type Department Care Team (Late st Contact Info) Description 01/06/2020 Telephone [place] [address] Gigi Almanzar CPHT Social History Tobacco Use [...] * Telephone Encounter - Gigi Almanzar - 01/06/2020 9:01 AM EDT Clinical Management Plan: Refill Specialty Pharmacy Consultation; Gigi Alamnzar Comprehensive Medication Management (CMM) Janice Mahoney is a 59 y.o. (1960) [...] and Drug intolerance: Allergies Allergen Reactions ??? [place] Medication Reconciliation Discrepancies (compared to [facility] med list) No New medications: No New medical conditions: No New allergies: No Adherence: Any missed doses? No Are you experiencing any side effects from your medications? No Patient understands no changes to current drug regimen were made.. Gigi Almanzar 01/06/20 9:01 AM documented in this encounter Plan of Treatment Upcoming Encounters Date Type Department Care Team (Late st Contact Info) Description 07/18/2024 1:00 PM EDT TH Visit (TeleHealth) [place] [address] Malinda Christopher MD [facility] [place] [address] documented as of this encounter Goals Goal Patient Goal Type Associated Problems Recent Progress Patient-Stated? Author [facility] Medication Compliance and Understanding Patient Facing Action Plan Lakeisha Matos, [facility] Note: Achieve and maintain control of Crohn's symptoms as assessed by specialist every 3 to 6 months or more documented as of this encounter Visit Diagnoses Not on filedocumented in this encounter Care Teams Personal Injury Paralegal Relationship Specialty Start Date End Date Valarie Phillips MD [address] [place] [address] PCP - General General Internal Medicine 09/06/17 documented as of this encounter
--- OUTSIDE RECORDS SUMMARY | 2024-04-14 02:13 | XMS_ITS | Encounter Summary ---
[place] [address] Care Team Providers Care Silk Examiner Name Role Phone Valarie Phillips MD Primary Care Provider [phone] Reason for Visit * Reason Comments Medication Management Patient Education Encounter Details Date Type Department Care Team (Late st Contact Info) Description 12/09/2019 Specialty [place] [address] [facility] Social History Tobacco Use Types Packs/Day [...] Progress Notes * Lucio Jones RPH - 12/09/2019 10:34 AM EDT Specialty Pharmacy Consultation; Lucio Jones [facility] Comprehensive Medication Management (CMM) Janice Mahoney Diagnosis: Crohn's Disease Therapy Start Date: 10/2017 Contact in person or via telephone: telephone [...] Assessment? Yes Summary and Recommendations: Janice Mahoney is a pleasant 59 y.o. female who was contacted for a consultation on Humira. The patient was able to verbalize understanding of the directions, storage requirements, clinical rationale,and possible adverse events of the medication. Proper injection technique was reviewed including rotation of injection sites, storage, and safe disposal of injection device. Allergies, medications, and medical conditions were reviewed at length including review for possible contraindications and interactions. The patient was informed of the variety of services that the Specialty Pharmacy will provide to them as one of our patients. Janice reported that her Crohn's symptoms are under control and rarely experiences stomach discomfort / pain. She had no questions or concerns today. Clinic follow-up needed: no Allergies and Drug intolerance: Allergies Allergen Reactions ??? [place] Problem List: Patient Active Problem List Diagnosis Code ??? Anal pain K62.89 ??? Clotting disorder D68.9 ??? Diverticulitis of large intestine without perforation or abscess without bleeding K57.32 ??? Gallstones K80.20 ??? Crohn's disease of colon with complication K50.119 Special Dietary or Hydration Requirements: no There is no height or weight on file to calculate BMI. Medication Reconciliation Discrepancies (compared to [facility] med list) no Medication Adherence Patient reported X missed doses [...] Apply topically 4 times daily as needed. (Patient not taking: Reported on 10/17/2019) 30 mL 0 ??? calcium carbonate (TUMS) [...] ointment apply to anus two times daily 11/02/2017: Patient is not taking. 2.5 g [...] Vitals: Ht Readings from Last 1 Encounters: 10/17/19 149.9 cm (4' 11) Wt Readings from Last 3 Encounters: 10/17/19 61.2 kg (135 lb) 10/11/19 62.1 kg (137 lb) 08/23/19 62.1 kg (137 lb) Temp Readings from Last 3 Encounters: 10/17/19 36.5 ??C (97.7 ??F) 09/15/17 36.6 ??C (97.9 ??F) BP Readings from Last 3 Encounters: 10/17/19 140/66 10/11/19 131/70 08/23/19 120/57 Pulse Readings from Last 3 Encounters: 10/17/19 69 10/11/19 71 08/23/19 83 Pertinent Lab values: Lab Results Component Value Date NA 140 05/16/2019 K 4.3 05/16/2019 CL 102 05/16/2019 CO2 27 05/16/2019 BUN 7 (L) 05/16/2019 CREATININE 0.56 (L) 05/16/2019 GLUCOSE 99 05/16/2019 CALCIUM 9.5 05/16/2019 Lab Results Component Value Date ALT 21 07/08/2019 AST 30 07/08/2019 ALKPHOS 67 07/08/2019 BILITOT 0.3 07/08/2019 BILIDIR 0.1 07/08/2019 ALBUMIN 4.2 07/08/2019 PROT 7.5 07/08/2019 Lab Results Component Value Date WBC 8.4 07/08/2019 HGB 12.5 07/08/2019 HCT 38.0 07/08/2019 MCV 91.8 07/08/2019 PLATELET 248 07/08/2019 No results found for: HA1C Immunization History Administered Date(s) Administered ??? Influenza Vaccine w/Preservative, Seasonal, Injectable 01/19/2018, 11/16/2018 ??? Pneumococcal Conjugate (13 Valent) 01/24/2019 ??? Pneumococcal Polyvalent 23 01/26/2018 ??? Tdap Vaccine 12/12/2011 ??? Zoster, Recombinant 01/26/2018, 06/28/2018 Assessment and Recommendations: Title Type of Medication Management: chronic disease management, targeted medication review Referred By: provider Recipient: beneficiary Provider: plan sponsor pharmacist Visit Type: [facility] Follow-up Method of Contact: by telephone Cognitive [...] missed doses discussed, pharmacy contact information discussed, health goals discussed, monitoring medication discussed, over the counter products discussed, preventative care discussed, recommendations to doctor discussed, reminder to refill or peanut picker medication discussed, self-monitoring discussed, timing of medications discussed, vaccination discussed, lifestyle modification education, referral needs discussed Drug Medication Management Summary Topics discussed: [...] missed doses discussed, pharmacy contact information discussed, health goals discussed, monitoring medication discussed, over the counter products discussed, preventative care discussed, recommendations to doctor discussed, reminder to refill or peanut picker medication discussed, self-monitoring discussed, timing of medications discussed, vaccination discussed, lifestyle modification education, referral needs discussed Time spent: 16-30 min Treatment Outcomes No data found in the last 10 encounters. Reviewed in detail with patient: Dose appropriateness [...] Assessment: Does the patient have a primary career education teacher? yes - Valarie Phillips Does the patient have an emergency contact on file: Yes Does patient need referral to foster care social worker: No Does patient need referral [...] copay: yes Copay Amount: $0 Day Supply: 28 Date Needed: 12/16/2019 Copay assistance required: no Therapy Assessment: Current Medication Dosing/Route/Frequency: Humira 40mg/0.4ml pen inject the contents of one pen subcutaneously every 7 days Appropriate Therapy: Yes Effective: yes - controling Crohn's symptoms Current GI-related Symptoms/Pain: no Recent GI Flaring: no Recent Systemic Corticosteroid Use: no Relapsing/Remitting Factors: no Patient-Reported Side Effects: no Recent Infections: no Patient Goals: Patient's specific desired goal: Goals ??? DH Home Medication Compliance and Understanding Achieve and maintain control of Crohn's symptoms as assessed by specialist every 3 to 6 months or more Measured by: pt report, clinic follow up, and specialty pharmacy follow up Time-frame to meet goal: 3-6 months Is the patient on track to achieve goals of therapy? yes If no, what are the barriers and action plan to reach the goal: n/a Care Plan and Interventions: Care Plan Reviewed and Approved by both Pharmacist and Patient: Yes Did Care Plan Change? No If yes: Change to plans of care based on: Patient's request: no Condition: no Response to therapy: no Provider request: no Follow-up needed: No Interventions (if applicable): No none Patient experienced change in condition that affects treatment: no Additional care/services needed: no Educational information or adherence tools provided: No Additional equipment/supplies required: no Patient Counseling: Utilizing appropriate injection technique: yes - confirmed Rotation of Injection Sites: Yes Room Temperature Medication at Time of Injection: Yes Pharmacist follow-up needed: Yes Patient Satisfaction with Care/Services Provided: Yes Informed patient of specialty pharmacy services: Yes -Patient received welcome packet: yes - confirmed Date Received: 10/2017 Delivery Method: mail -Patient returned signed Rights & Responsibilities: yes - confirmed Date Received: 10/2017 Delivery Method: mail -Patient is aware a [...] were made at the appointment and that [facility] isproviding recommendations (summary located at top of note) for provider review and follow up. Lucio Jones RPH 12/09/19 10:39 AM documented in this encounter Plan of Treatment Upcoming Encounters Date Type Department Care Team (Late st Contact Info) Description 07/18/2024 1:00 PM EDT TH Visit (TeleHealth) [place] [address] Malinda Christopher MD [facility] [place] [address] documented as of this encounter Goals Goal Patient Goal Type Associated Problems Recent Progress Patient-Stated? Author Home Medication Compliance and Understanding Patient Facing Action Plan Lakeisha Matos [facility] Note: Achieve and maintain control of Crohn's symptoms as assessed by specialist every 3 to 6 months or more documented as of this encounter Visit Diagnoses Not on filedocumented in this encounter Care Teams Silk Examiner Relationship Specialty Start Date End Date Valarie Phillips MD [address] [place] [address] PCP - General General Internal Medicine 09/06/17 documented as of this encounter
--- OUTSIDE RECORDS SUMMARY | 2024-04-14 02:13 | XMS_ITS | Encounter Summary ---
Author Organization [facility] [place] [address] Care Team Providers Care Crown Perforator Operator Name Role Phone Valarie Phillips MD Primary Care Provider [phone] Encounter Details Date Type Department Care Team (Late st Contact Info) Description 05/30/2019 Orders [place] [address] Meme Garza, RN Crohn's disease of both small and large [...] PM EDT TH Visit (TeleHealth) [place] [phone] Malinda Christopher MD [facility] [place] [address] documented as of this encounter Goals Goal Patient Goal Type Associated Problems Recent Progress Patient-Stated? Author [facility] Medication Compliance and Understanding Patient [...] intestine documented in this encounter Care Teams Crown Perforator Operator Relationship Specialty Start Date End Date Valarie Phillips MD [address] [place] [address] PCP - General General Internal Medicine 09/06/17 documented as of this encounter
--- OUTSIDE RECORDS SUMMARY | 2024-04-14 02:13 | XMS_ITS | Encounter Summary ---
Author Organization [facility] [address] Care Team Providers Care Mobile Paint Specialist Name Role Phone Valarie Phillips MD Primary Care Provider [phone] Encounter Details Date Type Department Care Team (Late st Contact Info) Description 05/11/2019 Ref[place] [phone] Fide Donnelly APRN [facility] [place] [address] Social History Tobacco Use Types Packs/Day Years [...] TH Visit (TeleHealth) [place] [phone] Malinda Christopher MD [facility] [place] [address] documented as of this encounter Goals Goal Patient Goal Type Associated Problems Recent Progress Patient-Stated? Author [facility] Medication Compliance and Understanding Patient Facing Action Plan Lakeisha Matos, [facility] Note: Achieve and maintain control of Crohn's symptoms as assessed by specialist every 3 to 6 months or more documented as of this encounter Visit Diagnoses Not on filedocumented in this encounter Care Teams Mobile Paint Specialist Relationship Specialty Start Date End Date Valarie Phillips MD [address] [place] [address] PCP - General General Internal Medicine 09/06/17 documented as of this encounter
--- OUTSIDE RECORDS SUMMARY | 2024-04-14 02:13 | XMS_ITS | Encounter Summary ---
Author Organization [facility] [place] [address] Care Team Providers Care Footwear Sales Associate Name Role Phone Valarie Phillips MD Primary Care Provider [phone] Reason for Visit * Reason Onset Date Comments Prior Authorization 05/24/2019 Humira Encounter Details Date Type Department Care Team (Late st Contact Info) Description 05/24/2019 [place] [phone] Jolly Lee Prior Authorization (Humira) Social History [...] * Telephone Encounter - Jolly Lee - 05/25/2019 9:04 AM EDT [facility], Prior Authorization Approval Medication Name: Humira FILLABLE AT [facility]? yes APPROVAL DATES: 04/24/2019 - 05/23/2022 SPECIFIC INS REQUIREMENT: CASE/REFERENCE # [id number] APPROVAL NOTIFICATION RECEIVED VIA: [facility] COPAY: $0 COPAY ASSISTANCE NEEDED?: no NOTES: * Telephone Encounter - Jolly Lee - 05/24/2019 12:59 PM EDT [facility], Medication Prior Authorization Patient: Janice Mahoney Patient : 1960 Patient Address: [address] [place] [phone] (home) Medication: Humira Subscriber Insurance: PADMINI Fax: Physician: Fide Donnelly Sent Via: [facility] Andujar: [id number] Ref/Case/PA#: [id number] Medication Strength Frequency Requested: Humira Pen 40mg/0.4mL PNKT: inject 1 pen (40mg) every 7 days. Qty/Day Supply: 07/04 New Start: no- increasing dose Diagnosis & ICD-10 Code: Crohn's Disease K50.811 documented in this encounter Plan of Treatment Upcoming Encounters Date Type Department Care Team (Late st Contact Info) Description 07/18/2024 1:00 PM EDT TH Visit (TeleHealth) [place] [phone] Malinda Christopher MD [facility] [place] [address] documented as of this encounter Goals Goal [...] on filedocumented in this encounter Care Teams Footwear Sales Associate Relationship Specialty Start Date End Date Valarie Phillips MD [address] [place] [address] PCP - General General Internal Medicine 09/06/17 documented as of this encounter
--- OUTSIDE RECORDS SUMMARY | 2024-04-14 02:13 | XMS_ITS | Encounter Summary ---
Author Organization [facility] [place] [address] Care Team Providers Care Feather Drying Machine Operator Name Role Phone Valarie Phillips MD Primary Care Provider [phone] Encounter Details Date Type Department Care Team (Late st Contact Info) Description 07/12/2019 [place] [phone] Flakita Boggs MD [facility] [address] [place] [address] Social History Tobacco Use Types Packs/Day Years [...] encounter Miscellaneous Notes * Telephone Encounter - Ramona Zelaya - 07/12/2019 3:31 PM EDT Left message to call and schedule. documented in this encounter Plan of Treatment Upcoming Encounters Date Type Department Care Team (Late st Contact Info) Description 07/18/2024 1:00 PM EDT TH Visit (TeleHealth) [place] [phone] Malinda Christopher MD [facility] [place] [address] documented as of this encounter Goals Goal [...] on filedocumented in this encounter Care Teams Feather Drying Machine Operator Relationship Specialty Start Date End Date Valarie Phillips MD [address] [place] [address] PCP - General General Internal Medicine 09/06/17 documented as of this encounter
--- OUTSIDE RECORDS SUMMARY | 2024-04-14 02:13 | XMS_ITS | Encounter Summary ---
Author Organization [facility] [place] [address] Care Team Providers Care Supervisor Paint Name Role Phone Valarie Phillips MD Primary Care Provider [phone] Encounter Details Date Type Department Care Team (Latest Contact Info) Description 07/08/2019 12:20 PM EDT Laboratory Appointment Lab [address] [place] [phone] Crohn's disease of colon with complication; Crohn's disease of both small and large [...] PM EDT TH Visit (TeleHealth) [place] [phone] Malinda Christopher MD [facility] [place] [address] documented as of this encounter Goals Goal Patient Goal Type Associated Problems Recent Progress Patient-Stated? Author [facility] Medication Compliance and Understanding Patient Facing Action Plan Lakeisha Matos, [facility] Note: Achieve and maintain control of Crohn's symptoms as assessed by specialist every 3 to 6 months or more documented as of this encounter Procedures Procedure Name Priority Date/Time Associated Diagnosis Comments HC C-REACTIVE PROTEIN Routine 07/08/2019 1:17 PM EDT Crohn's disease of colon with complication MISCELLANEOUS LAB REQUEST Routine 07/08/2019 1:17 PM EDT Crohn's disease of both small and large intestine with rectal bleeding MISC SENDOUT Routine 07/08/2019 1:17 PM EDT HEMOGRAM Routine 07/08/2019 1:17 PM EDT Crohn's disease of colon with complication DIFFERENTIAL, AUTOMATED Routine 07/08/2019 1:17 PM EDT Crohn's disease of colon with complication HC CBC,PLT & AUTO DIFF Routine 07/08/2019 1:17 PM EDT Crohn's disease of colon with complication HC VENIPUNCTURE Routine 07/08/2019 1:17 PM EDT Crohn's disease of colon with complication documented in this encounter Results * [facility] Sendout (07/08/2019 1:17 PM EDT) [facility] Sendout See Note [facility] Comment: The ordered test is: AnserADA Test performed by: [facility], [address] [place] [address]. [place] [address] See Scanned Report. Blood specimen (specimen) Venous Draw / Unknown 07/08/2019 1:17 PM EDT 07/08/2019 1:59 PM EDT Malinda Christopher MD LAB SEND OUT ORDERAB LES [facility] [place] [address] * Differential, Automated (07/08/2019 1:17 PM EDT) Neutrophil % 65.0 % [facility] Neutrophil Absolute 5.43 1.70 - 6.10 x10(3)/[facility] Lymph % 26.2 % [facility] Lymphocytes Abs 2.2 0.9 - 3.2 x10(3)/[facility] Monocyte % 6.8 % [facility] Monocyte Abs 0.6 0.3 - 0.9 x10(3)/[facility] Eos % 1.4 % [facility] Eosinophils Abs 0.1 0.0 - 0.4 x10(3)/[facility] Basophil % 0.5 % [facility] Baso Absolute 0.0 0.0 - 0.1 x10(3)/[facility] Immature Gran % 0.10 % [facility] Comment: Immature granulocytes(IG's)percentage and absolute count will include metamyelocytes, myelocytes, and promyelocytes. Blood smears from CBCs yielding IG's will be scanned manually for concordance. If this scan disagrees with the automated IG or if promyelocytes are noted, a manual differential will be performed. Immature Gran Absolute 0.01 0.00 - 0.04 x10(3)/[facility] Blood specimen (specimen) 07/08/2019 1:17 PM EDT 07/08/2019 1:21 PM EDT Narrative Resulting Agency Comment Spec In Lab L Tai Christopher MD HEMATOLOGY ORDERABLE S [facility] [place] [address] * Hemogram (07/08/2019 1:17 PM EDT) White Blood Cell 8.4 4.0 - 9.5 x10(3)/[facility] Red Blood Cell 4.14 4.00 - 5.21 x10(6)/[facility] Hemoglobin 12.5 11.7 - 15.5 gm/dL [facility] Hematocrit 38.0 35.7 - 45.8 % [facility] Mean Cell Volume 91.8 82.6 - 94.4 fL [facility] Mean Cell Hemoglobin 30.2 27.1 - 32.0 pg [facility] Mean Cell Hemoglobin Concentration 32.9 31.7 - 35.0 gm/dL [facility] Platelet 248 145 - 357 x10(3)/[facility] RDW Standard Deviation 42.5 37.0 - 46.0 fL [facility] RDW coefficient of variation 12.4 11.5 - 14.1 % [facility] Mean Platelet Volume 8.8 7.6 - 12.9 fL [facility] NRBC% auto 0.0 % [facility] NRBC Absolute 0.000 0.000 - 0.000 x10(3)/[facility] Blood specimen (specimen) 07/08/2019 1:17 PM EDT 07/08/2019 1:21 PM EDT Narrative Resulting Agency Comment Spec In Lab L Tai Christopher MD HEMATOLOGY ORDERABLE S Performing Organization Address [facility] Co de Phone Number [facility] [place] [address] * Miscellaneous Lab request (07/08/2019 1:17 PM EDT) Label Request received in lab. [facility] Blood specimen (specimen) 07/08/2019 1:17 PM EDT 07/08/2019 1:21 PM EDT Narrative Resulting Agency Comment Spec In Lab L Tai Christopher MD LAB SEND OUT ORDERAB LES Performing Organization Address City/[facility]/ZIP Co de Phone Number [facility] [place] [address] * CRP, acute inflammation (07/08/2019 1:17 PM EDT) C-Reactive Protein 0.8 <=4.9 mg/L [facility] Blood specimen (specimen) 07/08/2019 1:17 PM EDT 07/08/2019 1:21 PM EDT Narrative Resulting Agency Comment Spec In Lab L Tai Christopher MD CHEMISTRY ORDERABLES Performing Organization Address [facility]/ZIP Co de Phone Number [facility] [place] [address] * Hepatic Function Panel (07/08/2019 1:17 PM EDT) Protein, Total 7.5 6.1 - 8.0 gm/dL [facility] Albumin 4.2 3.2 - 5.2 gm/dL [facility] Aspartate Aminotransferase 30 0 - 30 unit/L [facility] Alanine Aminotransferase 21 0 - 30 unit/L [facility] Alkaline Phosphatase 67 35 - 105 unit/L [facility] Bilirubin, Total 0.3 0.2 - 1.3 mg/dL [facility] Bilirubin, Direct 0.1 0.0 - 0.3 mg/dL [facility] Blood specimen (specimen) 07/08/2019 1:17 PM EDT 07/08/2019 1:21 PM EDT Narrative Resulting Agency Comment Spec In Lab L Tai Christopher MD CHEMISTRY ORDERABLES Performing Organization Address City/[facility] Co de Phone Number [facility] [place] [address] documented in this encounter Visit Diagnoses Diagnosis Crohn's disease of colon with complication Crohn's disease of both small and large intestine with rectal bleeding Regional enteritis of small intestine with large intestine documented in this encounter Care Teams Supervisor Paint Relationship Specialty Start Date End Date Valarie Phillips MD [address] [place] [address] PCP - General General Internal Medicine 09/06/17 documented as of this encounter
--- OUTSIDE RECORDS SUMMARY | 2024-04-14 02:13 | XMS_ITS | Encounter Summary ---
[place] [address] Care Team Providers Care Print Decorator Name Role Phone Valarie Phillips MD Primary Care Provider [phone] Reason for Visit * Reason Onset Date Comments Reminder Appointment 08/15/2019 Encounter Details Date Type Department Care Team (Late st Contact Info) Description 08/15/2019 Telephone [place] [address] Millie Nicole CCMA Reminder Appointment [...] Telephone Encounter - Millie Nicole CCMA - 08/15/2019 9:34 AM EDT Called patient to review medications and allergies for their upcoming gastroenterology Type of Appointment: Telehealth appointment. Reach Patient during [place] Check: No, Did not leave a message Was unable to reach patient before appointment time Notes for the provider: Notes for the nurse: documented in this encounter Plan of Treatment Upcoming Encounters Date Type Department Care Team (Late Contact Info) Description 07/18/2024 1:00 PM EDT TH Visit (TeleHealth) [place] [address] Mlainda Christopher MD [facility] [place] [address] documented as of this encounter Goals Goal Patient Goal Type Associated Problems Recent Progress Patient-Stated? Author [facility] Home Medication Compliance and Understanding Patient Facing Action Plan Lakeisha Matos, [facility] Note: Achieve and maintain control of Crohn's symptoms as assessed by specialist every 3 to 6 months or more documented as of this encounter Visit Diagnoses Not on filedocumented in this encounter Care Teams Print Decorator Relationship Specialty Start Date End Date Valarie Phillips MD [address] [place] [address] PCP - General General Internal Medicine 09/06/17 documented as of this encounter
--- OUTSIDE RECORDS SUMMARY | 2024-04-14 02:13 | XMS_ITS | Encounter Summary ---
Author Organization [facility] [place] [address] Care Team Providers Care Bulldozer Mechanic Name Role Phone Valarie Phillips MD Primary Care Provider [phone] Encounter Details Date Type Department Care Team (Late st Contact Info) Description 09/08/2019 Telephone [place] [phone] Tegan Cabrera Social History Tobacco Use Types Packs/Day Years [...] encounter Miscellaneous Notes * Telephone Encounter - Tegan Cabrera - 09/08/2019 8:59 AM EDT Pt called and scheduled a telehealth follow up visit with Dr. Christopher for December. She is wondering ifshe should have lab work done prior. If so, she would like to have it done here at [facility]. documented in this encounter Plan of Treatment Upcoming Encounters Date Type Department Care Team (Late st Contact Info) Description 07/18/2024 1:00 PM EDT TH Visit (TeleHealth) [place] [phone] Malinda Christopher MD [facility] [place] [address] documented as of this encounter Goals Goal [...] on filedocumented in this encounter Care Teams Bulldozer Mechanic Relationship Specialty Start Date End Date Valarie Phillips MD [address] [place] [address] PCP - General General Internal Medicine 09/06/17 documented as of this encounter
--- OUTSIDE RECORDS SUMMARY | 2024-04-14 02:13 | XMS_ITS | Encounter Summary ---
Author Organization [facility] [place] [address] Care Team Providers Care Shipper Receiver Name Role Phone Valarie Phillips MD Primary Care Provider [phone] Reason for Visit * Reason Comments Medication Management Encounter Details Date Type Department Care Team (Late st Contact Info) Description 04/11/2019 Specialty [place] [address] Jennie Barkley RPH Social History Tobacco Use Types Packs/Day Years [...] Progress Notes * Jennie Barkley RPH - 04/11/2019 3:20 PM EST Clinical Management Plan: Refill Specialty Pharmacy Consultation; Jennie Barkley Lacy Comprehensive Medication Management (CMM) Janice Malinda [...] the Care Plan: no Assessment and Recommendations: Title Type of Medication Management: chronic disease management, targeted medication review Referred By: provider Recipient: beneficiary Provider: plan sponsor pharmacist Visit Type: [facility] Follow-up Method of Contact: by telephone Cognitive Ability: good Cognitive Impairment Status Verified this Year: no Allergies and Drug intolerance: Allergies Allergen Reactions ??? [place] ??? Polyethylene Glycol Analogues Hives Medication Reconciliation Discrepancies (compared to [facility] med list) -no New medications: no New medical conditions: no [...] non-adherence: no problems identified Adherence tools used: directed education Support network for adherence: healthcare provider Confirmed plan for next specialty medication refill: delivery by pharmacy Refills needed for supportive medications: not needed Are you experiencing any side effects from your medications? no Pt understands no changes to current drug regimen were made at the appointment and that [facility] is providing recommendations (summary located at top of note) for provider review and follow up. Jennie Barkley [facility] 04/11/19 3:21 PM documented in this encounter Plan of Treatment Upcoming Encounters Date Type Department Care Team (Late st Contact Info) Description 07/18/2024 1:00 PM EDT TH Visit (TeleHealth) [place] [address] Malinda Christopher MD [facility] [place] [address] documented as of this encounter Goals Goal Patient Goal Type Associated Problems Recent Progress Patient-Stated? Author [facility] Medication Compliance and Understanding Patient Facing Action Plan No Lakeisha Kent [facility] Note: Achieve and maintain control of Crohn's symptoms as assessed by specialist every 3 to 6 months or more documented as of this encounter Visit Diagnoses Not on filedocumented in this encounter Care Teams Shipper Receiver Relationship Specialty Start Date End Date Valarie Phillips MD [address] [place] [id number] PCP - General General Internal Medicine 09/06/17 documented as of this encounter
--- OUTSIDE RECORDS SUMMARY | 2024-04-14 02:13 | XMS_ITS | Encounter Summary ---
Author Organization [facility] [place] [address] Care Team Providers Care Substitute Crossing Guard Name Role Phone Valarie Phillips MD Primary Care Provider [phone] Encounter Details Date Type Department Care Team (Late st Contact Info) Description 07/12/2019 [place] [phone] Maia Barnett CCMA Social History Tobacco Use Types Packs/Day Years [...] encounter Miscellaneous Notes * Telephone Encounter - Maia Barnett CCMA - 07/12/2019 10:32 AM EDT GAP Manager Activities Pre-Telemedicine Phone Note [x] Patient not reached [] Patient reached and the following information was reviewed/obtained per protocol: [] Confirmed patient name and date of [] Confirmed telemedicine briana (Vidyo and Virtual Visit) is downloaded and functioning [] Confirmed location of patient - TeleVisit is taking place in [] [place] [] [place] [] If not on [facility], working on signing up for [facility] [] Confirmed has completed any pre-visit questionnaires [] If has not received required pre-visit questionnaires, send via [facility] [] Reviewed patient medications [] Documented self-reported vitals: [] Weight [] Height [] pulse recorded [] Other information or concerns documented in this encounter Plan of Treatment Upcoming Encounters Date Type Department Care Team (Late st Contact Info) Description 07/18/2024 1:00 PM EDT TH Visit (TeleHealth) [place] [address] Malinda Christopher MD [facility] [place] [address] documented as of this encounter Goals Goal Patient Goal Type Associated Problems Recent Progress Patient-Stated? Author [facility] Medication Compliance and Understanding Patient Facing Action Plan No Lakeisha Kent, [facility] Note: Achieve and maintain control of Crohn's symptoms as assessed by specialist every 3 to 6 months or more documented as of this encounter Visit Diagnoses Not on filedocumented in this encounter Care Teams Substitute Crossing Guard Relationship Specialty Start Date End Date Valarie Phillips MD [address] [facility] [place] [address] PCP - General General Internal Medicine 09/06/17 documented as of this encounter
--- OUTSIDE RECORDS SUMMARY | 2024-04-14 02:13 | XMS_ITS | Encounter Summary ---
Author Organization [facility] Address [facility] [place] [address] Care Team Providers Care Truck Leasing Manager Name Role Phone Valarie Phillips MD Primary Care Provider [phone] Reason for Visit * Reason Comments Allergy Testing * Consultation (Routine) - Closed Specialty Diagnoses / Procedures Referred By Contac t Referred To Contact Allergy Diagnoses Allergy, unspecified, initial encounter ALLERGIC REACTIONS TO OTC PRODUCTS Valarie Phillips MD [address] [place] [address] [facility] [address] [place] [phone] Referral ID Status Reason Start Date Expiration Date V isits Requested Visits Authorized [id number] Closed Consult, [facility] PCP Updated and/or Approved 11/19/2018 11/19/2019 1 1 Encounter Details Date Type Department Care Team (Late st Contact Info) Description 07/12/2019 1:00 PM EDT TH Visit (TeleHealth) [place] [phone] Flakita Boggs MD [facility] [address] [facility] [place] [address] Drug allergy Social History Tobacco Use Types [...] as of this encounter Progress Notes * Flakita Boggs MD - 07/12/2019 1:00 PM EDT CC: drug allergy HPI: Janice Mahoney is a 59 y.o. female with a PMH of Crohn's, protein C deficiency presenting for evaluation of drug allergy at the request of Valarie Phillips. Patient consented to telehealth visit. Patient located in [place]. Over the course of 20 years several allergy issues with things like hair dye, sunscreen, cough syrup. Anything that makes it liquid triggers symptoms. Patient concerned that she is allergic to PEG Suncreen - skin red, had PEG per pt Hair dye - skin itchy and scabby, had PEG per pt Once after taking liquigel cold medicine got really red afterwards and kind of short of breath - began after 15-20 min. Lasted a couple hours. doesn't know what was in this, only remembers it hadPEG bc she looked for it. This was about 10y ago. 5 years ago, took cold medicine and got severe hives - white raised bumps, and SOB. Went to ED. Sx began almost immediately. Took benadryl which helped, by time got to ED 20 min later had started to improve. That medicine did not have PEG. Ingredients: dextromethorphan, guafenisin, citric acid, flavor, glucose, glycerine, HFCS, menthol, red #40, saccharine sodium, sodium benzoate Specifically avoiding PEG since due to concerns. Reads labels on OTCs and supplements. Reluctant totake miralax due to concern for PEG. Recommended for constipation for Crohn's and common in colo prep, which she does yearly. [place] - makes lips feel raw and mouth sore, makes gut feel inflamed. No hives. Just irritates throat and stomach. ROS is per HPI otherwise negative. Patient Active Problem List Diagnosis [...] 3.66) performed by Moe Smith MD at [facility] ??? PRO COLONOSCOPY, DIAGNOSTIC 02/19/2012 COLONOSCOPY, DIAGNOSTIC performed by Nathanael Pyle MD at [facility] ??? omeprazole (PriLOSEC) 20 mg Capsule, Delayed Release(E.C.) ??? adalimumab 40 mg/0.4 mL Pen Injector Kit ??? nystatin-triamcinolone (MYCOLOG II) Cream ??? UNABLE TO FIND ??? lidocaine (XYLOCAINE) 2 % jelly ??? calcium carbonate (TUMS) 200 mg calcium (500 mg) Tablet, Chewable ??? PROAIR HFA 90 mcg/actuation HFA Aerosol Inhaler ??? acetaminophen (TYLENOL) 325 mg Tablet ??? magnesium citrate Solution ??? NIFEdipine, Bulk, Powder ??? lactobacillus rhamnosus, GG, (CULTURELLE) 10 billion cell Capsule ??? DILTIAZEM HCL, BULK, MISC ??? acyclovir (ZOVIRAX) 200 mg Capsule ??? Guar Gum Packet ??? docusate sodium (COLACE ORAL) Allergies Allergen Reactions ??? [place] ??? Polyethylene Glycol Analogues Hives Family History Problem Relation Age of Onset ??? Cancer Maternal Grandmother colon ca, uterine ca ??? Cancer Paternal Grandmother colonc ca Social History Socioeconomic History ??? Marital status: [...] file Gets together: Not on file Attends congregation service: Not on file Active member of [...] Social History Narrative ??? Not on file PHYSICAL EXAM Constitutional: awake, alert, no acute distress Head: normocephalic, atraumatic Eyes: conjunctiva without injection or icterus, no discharge appreciated, no eyelid edema ENT: no angioedema of tongue or lips, normal pinnae, no anterior nasal drainage observed, no audible stridor Neck: no visible goiter or gross enlargement of neck Resp: no increased work of breathing observed, no coughing observed, speaking in full sentences, normal rate of breathing, no accessory muscle use CVS: normal color and perfusion, no apparent cyanosis Skin: no visible rash or lesions, normal color, no mottling Neuro: EOMI, no dysarthria Psych: normal grooming, appropriate mood and affect, normal volume/quantity/tone of speech, normal thought process and content ASSESSMENT AND PLAN: 59 y.o. female with multiple drug and topical reactions. Symptoms with sunscreen and hair dye c/w contact dermatitis, which is a different allergic process. PEG is unlikely to be the trigger for these and more commonly other components of these trigger CD (hair dye - paraphenylenediamine, sunscreen- fragrance, chemical absorbers). The reaction to the liquigel more c/w IgE-mediated but I do not know any other ingredients besides PEG for this. Reaction to another cold medicine occurred which clearly did not contain PEG, so there does not appear to be any common pattern here in my opinion regarding the type of reaction and the trigger and I think it is unlikely she is allergic to PEG. However, we can test for PEG and rule it out with a challenge which would achieve the goal of telling her if she can take this. - RTO for allergy skin testing to PEG. If negative would recommend challenge to confirm (would needsecond visit) - avoid antihistamines for 7d before test Flakita Boggs MD documented in this encounter Plan of Treatment Upcoming Encounters Date Type Department Care Team (Late st Contact Info) Description 07/18/2024 1:00 PM EDT TH Visit (TeleHealth) [place] [address] Malinda Christopher MD [facility] [place] [address] documented as of this encounter Goals Goal Patient Goal Type Associated Problems Recent Progress Patient-Stated? Author [facility] Medication Compliance and Understanding Patient Facing Action Plan Lakeisha Matos, [facility] Note: Achieve and maintain control of Crohn's symptoms as assessed by specialist every 3 to 6 months or more documented as of this encounter Visit Diagnoses Diagnosis Drug allergy Other drug allergy documented in this encounter Care Teams Truck Leasing Manager Relationship Specialty Start Date End Date Valarie Phillips MD [address] [facility] [place] [place] [address] PCP - General General Internal Medicine 09/06/17 documented as of this encounter
--- OUTSIDE RECORDS SUMMARY | 2024-04-14 02:13 | XMS_ITS | Encounter Summary ---
Author Organization [facility] [place] [address] Care Team Providers Care Film Flat Inspector Name Role Phone Valarie Phillips MD Primary Care Provider [phone] Encounter Details Date Type Department Care Team (Late st Contact Info) Description 06/16/2019 Tele[place] [phone] Yarelis Milian Social History Tobacco Use Types Packs/Day Years [...] encounter Miscellaneous Notes * Telephone Encounter - Yarelis Milian - 06/16/2019 10:49 AM EDT Left vm and sent letter to covert 4-27 apt to tele documented in this encounter Plan of Treatment Upcoming Encounters Date Type Department Care Team (Late st Contact Info) Description 07/18/2024 1:00 PM EDT TH Visit (TeleHealth) [place] [address] Malinda Christopher MD [facility] [place] [address] documented as of this encounter Goals Goal Patient Goal Type Associated Problems Recent Progress Patient-Stated? Author [facility] Medication Compliance and Understanding Patient Facing Action Plan Lakeisha Matos, [facility] Note: Achieve and maintain control of Crohn's symptoms as assessed by specialist every 3 to 6 months or more documented as of this encounter Visit Diagnoses Not on filedocumented in this encounter Care Teams Film Flat Inspector Relationship Specialty Start Date End Date Valarie Phillips MD [address] [place] [address] PCP - General General Internal Medicine 09/06/17 documented as of this encounter
--- OUTSIDE RECORDS SUMMARY | 2024-04-14 02:13 | XMS_ITS | Encounter Summary ---
Author Organization [facility] [place] [address] Care Team Providers Care Candle Molder Name Role Phone Valarie Phillips MD Primary Care Provider [phone] Encounter Details Date Type Department Care Team (Late st Contact Info) Description 12/19/2019 Telephone [place] [phone] Ilene Cabrera Social History Tobacco Use Types Packs/Day [...] encounter Miscellaneous Notes * Telephone Encounter - Ilene Cabrera - 12/19/2019 11:43 AM EDT Janice Mahoney [id number]CS [address] Dr[address] Christopher 12/19/2019 Diagnosis/Indication: Crohn's restaging (within 2 months) 1. Have you ever had a/an Colonoscopy before? Yes: Date 10/02/2017 If yes, did you have any problems with the procedure? No What type of sedation was used: IV Conscious Sedation 2. Do you take any Blood Thinners? No 3. Do you have a Pacemaker or Defibrillator device? No 4. Are you a diabetic? No 5. Do you have any Allergies to Eggs, Latex or Medications? Yes: Cheesh-Na 6. Do you take any Oral Iron [...] to patient: You must have a responsible alliance party who will drive you to your procedure, stay [place] for the entire duration of your procedure, and drive you home from your procedure? yes BMI 27.30 Weight 139 lb 12.8 oz Height 5' Age:59 y.o. documented in this encounter Plan of Treatment Upcoming Encounters Date Type Department Care Team (Late st Contact Info) Description 07/18/2024 1:00 PM EDT TH Visit (TeleHealth) [place] [address] Malinda Christopher MD [facility] [place] [address] documented as of this encounter Goals Goal [...] on filedocumented in this encounter Care Teams Candle Molder Relationship Specialty Start Date End Date Valarie Phillips MD [address] [place] [address] PCP - General General Internal Medicine 09/06/17 documented as of this encounter
--- OUTSIDE RECORDS SUMMARY | 2024-04-14 02:13 | XMS_ITS | Encounter Summary ---
Author Organization [facility] [place] [address] Care Team Providers Care Railroad Car Checker Name Role Phone Valarie Phillips MD Primary Care Provider [phone] Reason for Visit * Reason Comments Allergy Testing Encounter Details Date Type Department Care Team (Late st Contact Info) Description 08/23/2019 10:00 AM EDT [place] [address] Flakita Boggs MD [facility] [place] [address] Drug allergy Social History Tobacco Use Types [...] Sign Reading Time Taken Comments Blood Pressure 120/57 08/23/2019 10:06 AM EDT Pulse 83 08/23/2019 10:06 AM EDT Temperature - - Respiratory Rate - - Oxygen Saturation 100% 08/23/2019 10:06 AM EDT Inhaled Oxygen Concentration - - Weight 62.1 kg (137 lb) 08/23/2019 10:06 AM EDT Height 151.1 cm (4' 11.49) 08/23/2019 10:06 AM EDT Body Mass Index 27.22 08/23/2019 10:06 AM EDT documented in this encounter Progress Notes * Flakita Boggs MD - 08/23/2019 10:00 AM EDT CC: allergy testing HPI: Janice Mahoney is a 59 y.o. female with PMH Crohns, protein C deficiency presenting for follow up of drug allergy. Please see initial note on July 12, 2019, but the patient reports multiple reactions to a variety of topical products and medications in which she has come to suspect that polyethylene glycol was a trigger. However, the reaction types have varied (contact dermatitis for some, hivesand shortness of breath for another) and on review of the ingredients polyethylene glycol was not auniversal ingredient, but the patient has been avoiding it due to concerns about this being an allergy. It has been recommended to her for constipation and for colonoscopy prep so she is here today for testing to polyethylene glycol. No new complaints since last visit. ROS: per HPI, otherwise negative. Patient Active Problem List Diagnosis Code ??? Anal pain K62.89 ??? Clotting disorder D68.9 ??? Diverticulitis of large intestine without perforation or abscess without bleeding K57.32 ??? Gallstones K80.20 ??? Crohn's disease of colon with complication K50.119 Past Medical History: Diagnosis Date ??? Diverticulitis ??? Hemorrhagic disorder protein C deficiency Outpatient Medications Marked as Taking for the 08/23/19 encounter (Office Visit) with Flakita Boggs MD Medication Sig Dispense Refill ??? omeprazole (PriLOSEC) 20 mg Capsule, Delayed Release(E.C.) Take 1 capsule by mouth daily. 90 capsule 3 ??? adalimumab 40 mg/0.4 mL Pen Injector Kit Inject 40 mg subcutaneously every 7 days. 6 kit 1 ??? lidocaine (XYLOCAINE) 2 % jelly Apply [...] times daily as needed for Pain. ??? acyclovir (ZOVIRAX) 200 mg Capsule SKIN TESTING for polyethylene glycol (PEG) - stock solution 1g in 7g (~15% solution per campground caretaker) SPT Histamine (7, 20) Saline (-) PEG 1:10 (-) Saline (-) PEG 1:1 (-) IDT Saline (-) PEG 1:100 (-) ASSESSMENT/PLAN: 59 y.o. female with negative skin testing to PEG. Predictive value of polyethylene glycol skin testing is unknown, though has been positive in some confirmed cases of polyethylene glycol allergy at the above concentrations. Recommended to completely rule out an allergy we perform a challenge to poly ethylene glycol. The patient will return for challenge and she will bring MiraLAX to the visit for the challenge. Counseled she can bring the powder form or liquid form so that we can adjust the amount given for a graded challenge. Also counseled that she needs to be off antihistamines for 7 days before the challenge as well. Patient agreed. Flakita Boggs MD documented in this encounter Plan of Treatment Upcoming Encounters Date Type Department Care Team (Late st Contact Info) Description 07/18/2024 1:00 PM EDT TH Visit (TeleHealth) [place] [address] Malinda Christopher MD [facility] [place] [address] documented as of this encounter Goals Goal Patient Goal Type Associated Problems Recent Progress Patient-Stated? Author [facility] Medication Compliance and Understanding Patient Facing Action Plan Lakeisha Matos, [facility] Note: Achieve and maintain control of Crohn's symptoms as assessed by specialist every 3 to 6 months or more documented as of this encounter Procedures Procedure Name Priority Date/Time Associated Diagnosis Comments ALLERGY SCAN 08/23/2019 12:00 AM EDT documented in this encounter Results * SCAN DOC: ALLERGY (08/23/2019 12:00 AM EDT) Narrative 08/23/2019 12:00 AM EDT Ordered by an unspecified provider. Scanning Provider MEDIA MGR SCAN EXT O RDR/RSLT documented in this encounter Visit Diagnoses Diagnosis Drug allergy Other drug allergy documented in this encounter Care Teams Railroad Car Checker Relationship Specialty Start Date End Date Valarie Phillips MD [address] [place] [address] PCP - General General Internal Medicine 09/06/17 documented as of this encounter
--- OUTSIDE RECORDS SUMMARY | 2024-04-14 02:13 | XMS_ITS | Encounter Summary ---
[facility] [place] [address] Care Team Providers Care Boarder Hand Name Role Phone Valarie Phillips MD Primary Care Provider [phone] Encounter Details Date Type Department Care Team (Late st Contact Info) Description 07/21/2019 Telephone [place] [address] Gigi Almanzar CPHT Social History Tobacco Use [...] * Telephone Encounter - Gigi Almanzar - 07/21/2019 10:31 AM EDT Clinical Management Plan: Refill Specialty Pharmacy Consultation; Gigi Almanzar Comprehensive Medication Management (CMM) Janice Mahoney is [...] and Drug intolerance: Allergies Allergen Reactions ??? [place] ??? Polyethylene Glycol Analogues Hives Medication Reconciliation Discrepancies (compared to [facility] med list) No New medications: No New medical conditions: No New allergies: No Adherence: Any missed doses? No Are you experiencing any side effects from your medications? No Patient understands no changes to current drug regimen were made.. Gigi Almanzar 07/21/19 10:31 AM documented in this encounter Plan of Treatment Upcoming Encounters Date Type Department Care Team (Late st Contact Info) Description 07/18/2024 1:00 PM EDT TH Visit (TeleHealth) [place] [address] Malinda Christopher MD [facility] [place] [address] documented as of this encounter Goals Goal Patient Goal Type Associated Problems Recent Progress Patient-Stated? Author [facility] Medication Compliance and Understanding Patient Facing Action Plan No Lakeisha Kent, [facility] Note: Achieve and maintain control of Crohn's symptoms as assessed by specialist every 3 to 6 months or more documented as of this encounter Visit Diagnoses Not on filedocumented in this encounter Care Teams Boarder Hand Relationship Specialty Start Date End Date Valarie Phillips MD [address] [place] [address] PCP - General General Internal Medicine 09/06/17 documented as of this encounter
--- OUTSIDE RECORDS SUMMARY | 2024-04-14 02:13 | XMS_ITS | Encounter Summary ---
Author Organization [facility] [place] [address] Care Team Providers Care Polymer Tester Name Role Phone Valarie Phillips MD Primary Care Provider [phone] Encounter Details Date Type Department Care Team (Late st Contact Info) Description 05/16/2019 Telephone [place] [id number] Ilene Cabrera Social History Tobacco Use Types [...] * Telephone Encounter - Ilene Cabrera - 05/16/2019 10:08 AM EDT Janice Mahoney [phone] EGD/colonoscopy with IVCS per Fide Donnelly APRN 05/16/2019 Diagnosis/Indication: Crohn's disease 1. Have you ever had a/an Upper Endoscopy & Colonoscopy before? yes If yes, did you have any problems with the procedure? No What type of sedation was used: IV Conscious Sedation 2. Do you take any Blood Thinners? No 3. Do you have a Pacemaker or Defibrillator device? No 4. Are you a diabetic? No 5. Do you have any Allergies to Eggs, Latex or Medications? Yes: allergies in chart 6. Do you take any Oral Iron [...] to give us to aid in scheduling? Yes, Protein C Deficiency (blood clotting disorder) Say to patient: You must have a responsible constitution party who will drive you to your procedure, stay on campus for the entire duration of your procedure, and drive you home from your procedure?yes BMI 27.27 Weight 137 lb 4.8 oz Height 4' 11.5 Age:59 y.o. documented in this encounter Plan of Treatment Upcoming Encounters Date Type Department Care Team (Late st Contact Info) Description 07/18/2024 1:00 PM EDT TH Visit (TeleHealth) [place] [address] Malinda Christopher MD [facility] [place] [address] documented as of this encounter Goals Goal [...] on filedocumented in this encounter Care Teams Polymer Tester Relationship Specialty Start Date End Date Valarie Phillips MD [address] [place] [address] PCP - General General Internal Medicine 09/06/17 documented as of this encounter
--- OUTSIDE RECORDS SUMMARY | 2024-04-14 02:13 | XMS_ITS | Encounter Summary ---
Author Organization [facility] [place] [address] Care Team Providers Care District Court Judge Name Role Phone Valarie Phillips MD Primary Care Provider [phone] Encounter Details Date Type Department Care Team (Late st Contact Info) Description 12/19/2019 11:00 AM EDT Office Visit [place] [address] Malinda Christopher MD [facility] [place] [address] Colonic Crohn's with mid small bowel segment [...] Sign Reading Time Taken Comments Blood Pressure 129/67 12/19/2019 10:56 AM EDT Pulse 85 12/19/2019 10:56 AM EDT Temperature - - Respiratory Rate - - Oxygen Saturation 100% 12/19/2019 10: 56 AM EDT Inhaled Oxygen Concentration - - Weight 63.4 kg (139 lb 12.8 oz) 020 10:56 AM EDT Height 152.4 cm (5') 12/19/2019 10:56 AM EDT Body Mass Index 27.3 12/19/2019 10:56 AM EDT documented in this encounter Patient Instructions * Patient Instructions* Malinda Christopher MD - 12/19/2019 11:00 AM EDT # Schedule restaging colonoscopy with moderate conscious sedation to be done within the next coupleof months ideally with me or another IBD provider # Cont Humira 40 mg weekly # Follow-up at the time of colonoscopy and in the office in 6 months with labs to be drawn at that time documented in this encounter Progress Notes * Malinda Christopher MD - 12/19/2019 11:00 AM EDT Patient Active Problem List Diagnosis ??? Colonic Crohn's with mid small bowel segment Overview Note: ?? Location: Colonic and mid small bowel, Behavior: Inflammatory perianal disease in form of skin tags ?? Symptoms: worsening hemorrhoids April 2017 undergoes excisional hemorrhoidectomy that did not heal ?? 10/02/17: [place]oscopy ([facility] Large perianal inflamed skin tags ??found on [...] with transmural enhancement, however, no mesenteric inflammation. Treatments: ?? Started Humira end of 10/2017, 12/17/17 Forrest Humira level 12.8, no antibodies on every two week Humira . Repeat Forrest Spring 2019 with Ab and low drug [...] perforation or abscess without bleeding ??? Gallstones INTERVAL HISTORY: Ms. Mahoney follows up for Crohn's colitis with question of mid small bowel disease. She is on Humira weekly and not missing doses. She is tolerating it well. She is moving her bowels 3-4 times per day for softly formed, nonbloody stool. She usually moves her bowels several times in the morning. There is mild urgency. There is mild crampiness and LLQ pain that tends to be transient and associated with her bowel movements. She is thankful to be back at work part-time. She avoids nonsteroidal anti-inflammatory medications and limits herself to acetaminophen. She had flu shot at her PCP's office just this past month. The fees for the [employer] testing done earlier in the year have not been completely resolved. Shecontinues to get paperwork both from [employer] and her insurer. REVIEW OF SYSTEMS Notable for the gastrointestinal [...] for the past 24 hrs: Pulse BP SpO2 12/19/19 1056 85 129/67 100 % Wt Readings from Last 3 Encounters: 12/19/19 63.4 kg (139 lb 12.8 oz) 10/17/19 61.2 kg (135 lb) 10/11/19 62.1 kg (137 lb) Body mass index is 27.3 kg/m??. GEN: Healthy-appearing in no acute distress. Appears stated age. Cooperative and answers questions appropriately. Lab Results Component Value Date WBC 5.8 12/19/2019 RBC 4.24 12/19/2019 HGB 12.5 12/19/2019 HCT 39.6 12/19/2019 MCV 93.4 12/19/2019 MCH 29.5 12/19/2019 MCHC 31.6 (L) 12/19/2019 PLATELET 268 12/19/2019 RDWCV 12.0 12/19/2019 Lab Results Component Value Date CRP 1.0 12/19/2019 Lab Results Component Value Date ALT 19 12/19/2019 AST 20 12/19/2019 ALKPHOS 68 12/19/2019 BILITOT 0.3 12/19/2019 ASSESSMENT AND RECOMMENDATIONS: Overall, doing quite well with a nice symptomatic response to Humira. Discussed the importance of restaging with colonoscopy, since she has not had an exam since starting the Humira. We will try and schedule that today. She does have some concerns about payment and coverage from her insurer as she is under some financial constraints currently. Will be important to make sure that her Crohn's disease is indeed in remission to help prevent future complications from incompletely treated Crohn's. There are good data to show that following symptoms alone is not sufficient. In the meantime, she will continue Humira weekly. We will see her back in approximately 5 to 6 months at which time she can have her routine labs rechecked. Otherwise, I will see her next at the timeof her colonoscopy. We discussed the following recommendations that were printed out for the patient: # Schedule restaging colonoscopy with moderate conscious sedation to be done within the next coupleof months ideally with me or another IBD provider # Cont Humira 40 mg weekly # Follow-up at the time of colonoscopy and in the office in 6 months with labs to be drawn at that time 15 min of this 20 min [id number] visit was spent counseling the patient in the issues outlined above. Omar Christopher MD Mannequin Wig Makerairplane coverer Co-Director, [facility] Section of Gastroenterology [place] [address] documented in this encounter Plan of Treatment Upcoming Encounters Date Type Department Care Team (Late st Contact Info) Description 07/18/2024 1:00 PM EDT TH Visit (TeleHealth) [place] [address] Malinda Christopher MD [facility] [address] documented as of this encounter Goals Goal [...] segment documented in this encounter Care Teams District Court Judge Relationship Specialty Start Date End Date Valarie Phillips MD [address] [place] [address] PCP - General General Internal Medicine 09/06/17 documented as of this encounter"
--- OUTSIDE RECORDS SUMMARY | 2024-04-14 02:13 | XMS_ITS | Encounter Summary ---
[place] [address] Care Team Providers Care Counter Molder Name Role Phone Valarie Phillips MD Primary Care Provider [phone] Reason for Visit * Reason Comments Medication Refill Encounter Details Date Type Department Care Team (Late st Contact Info) Description 01/16/2020 Refill [place] [address] Fide Donnelly, [facility] [place] [address] Social History Tobacco Use Types Packs/Day Years [...] PM EDT TH Visit (TeleHealth) [place] [address] Malinda Christopher MD [facility] [place] [address] documented as of this encounter Goals Goal Patient Goal Type Associated Problems Recent Progress Patient-Stated? Author [facility] Medication Compliance and Understanding Patient Facing Action Plan Lakeisha Matos, [facility] Note: Achieve and maintain control of Crohn's symptoms as assessed by specialist every 3 to 6 months or more documented as of this encounter Visit Diagnoses Not on filedocumented in this encounter Care Teams Counter Molder Relationship Specialty Start Date End Date Valarie Phillips MD [address] [place] [address] PCP - General General Internal Medicine 09/06/17 documented as of this encounter
--- OUTSIDE RECORDS SUMMARY | 2024-04-14 02:13 | XMS_ITS | Encounter Summary ---
[place] [address] Care Team Providers Care Packaging Associate Name Role Phone Valarie Phillips MD Primary Care Provider [phone] Reason for Referral * Diagnostic Test (Routine) - Closed Specialty Diagnoses / Procedures Referred By Vashti zeng Referred To Contact Radiology Diagnoses Crohn's disease of both small and large intestine with rectal bleeding Procedures MRI Enterography wwo Contrast Fide Donnelly APRN [facility] [place] [address] [place] [address] Referral ID Status Reason Start Date Expiration Date V isits Requested Visits Authorized [id number] Closed Specialty Service Requested 07/01/2019 12/27/2019 1 1 Reason for Visit * Diagnostic Test (Routine) - Closed Specialty Diagnoses / Procedures Referred By Vashti zeng Referred To Contact Radiology Diagnoses Crohn's disease of both small and large intestine with rectal bleeding Procedures MRI Enterography wwo Contrast Fide Donnelly APRN [facility] [place] [address] [place] [address] Referral ID Status Reason Start Date Expiration Date V isits Requested Visits Authorized [id number] Closed Specialty Service Requested 07/01/2019 12/27/2019 1 1 Encounter Details Date Type Department Care Team (Latest Contact Info) Description 07/08/2019 8:50 AM EDT Hospital Encounter MRI at [facility] [place] [address] Fide Donnelly, ROMUL[facility] [place] [address] Crohn's disease of both small and large intestine with rectal bleeding Discharge Disposition: Home Social History Tobacco Use [...] Sig Dispensed Refills Start Date End Date omeprazole (PriLOSEC) 20 mg Capsule, Delayed Release(E.C.) Take 1 capsule by mouth daily. 90 capsule 3 06/06/2019 04/27/2020 adalimumab 40 mg/0.4 mL Pen Injector Kit Inject 40 mg subcutaneously every 7 days. 6 kit 1 05/24/2019 10/12/2019 nystatin-triamcinol one (MYCOLOG II) Cream Apply topically 2 times daily. Apply a tiny amount as thin layer to perianal area twice daily x2 weeks then stop 30 g 05/16/2019 02/03/2020 UNABLE TO FIND Take by mouth every other day. Med Name: Nuun, OTC supplement 02/03/2022 lidocaine (XYLOCAINE) 2 % [...] mouth. 02/03/2022 documented as of this encounter Progress Notes * Josey Llanos RN - 07/08/2019 9:50 AM EDT MRI PRE-SEDATION ASSESSMENT NOTE NAME: Janice Mahoney AGE: 59 y.o. : [address] [place] [address] Female [phone] (home) [phone] (work) No relevant phone numbers on file. Valarie Phillips MD No primary care provider on file. Allergies Allergen Reactions ??? [place] ??? Polyethylene Glycol Analogues Hives Date/Time of call: July 05, 2019/8:30 AM/ PREVIOUS MRI SCAN? HEIGHT: WEIGHT: SCHEDULED SCAN: MRI ENTEROGRAPHY WITH/WO CONTRAST [[id number]] Order Questions Answers Where will study be performed? [facility] Radiology [120] Reason for exam and clinical history: Crohn's disease, c/o LLQ pain, evaluate extent of disease Does patient require sedation? IV Please ensure a History and Physical exam is completed within 30 days of the Radiology Procedure OK Is patient claustrophobic? Unknown Does patient have difficulty breathing or pain while lying flat? Unknown SUBJECTIVE: Claustrophobic CAN YOU LAY FLAT? Yes AIRWAY/BREATHING ISSUES? no DO YOU HAVE ANY INVOLUNTARY MOVEMENTS? no (explain) DO YOU HAVE ANY PAIN? Yes, Crohn's and joint pain DO YOU TAKE PAIN MED ON A DAILY BASIS? no ASSESSMENT: Okay to po sedate PLAN: Ativan 1 mg PO ( JAM ) You must have a public transit bus driver present when you check in. This patient has been informed that they require a public transit bus driver to drive them home after this procedure. In the absence of a public transit bus driver, IR will not be able to sedate for your scan. Pt verbalized understanding of these instructions during the pre-procedure education via phone. Yes Name of public transit bus driver: Phone number PRIOR SCAN DATE/S SEDATION TYPE SUCCESSFUL 10/29/17 MRI Enterography Ativan 1mg PO yes 05/03/18 MRI Enterography Ativan 1 mg po Yes 07/08/19 MRI Enterography Ativan 1 mg po Yes ? Revised 08/04/17 documented in this encounter Plan of Treatment Upcoming Encounters Date Type Department Care Team (Late st Contact Info) Description 07/18/2024 1:00 PM EDT TH Visit (TeleHealth) [place] [address] Malinda Christopher MD [facility] [place] [address] documented as of this encounter Goals Goal Patient Goal Type Associated Problems Recent Progress Patient-Stated? Author Home Medication Compliance and Understanding Patient Facing Action Plan Lakeisha Matos, [facility] Note: Achieve and maintain control of Crohn's symptoms as assessed by specialist every 3 to 6 months or more documented as of this encounter Procedures Procedure Name Priority Date/Time Associated Diagnosis Comments MRI ENTEROGRAPHY WITH/WO CONTRAST Routine 07/08/2019 12:07 PM EDT Crohn's disease of both small [...] below. ? Electronically signed by: Jitendra Walden [facility] ([phone]), at 07/08/2019 3:43 PM Narrative 07/08/2019 3:43 [...] this report, please contact the number below. Electronically signed by: Jitendra Walden [facility]([phone]), at 07/08/2019 3:43 PM Fide Donnelly APRN IMG MRI ORDERABLE S documented in this encounter Visit Diagnoses Diagnosis Crohn's disease of both small and large intestine with rectal bleeding Regional enteritis of small intestine with large intestine documented in this encounter Administered Medications Inactive Administered Medications - up to 3 most recent administrations Medication Order MAR Action Action Date Dose Rate Site gadoterate meglumine (DOTAREM) 0.5 mmol/mL (376.9 mg/mL) injection 12.46 mL 12.46 mL (0.2 mL/kg/dose ? 62.3 kg), Intravenous, ONCE PRN, 1 dose, Starting on Thu07/08/19 at 1204, Until Thu07/08/19 at 1156, Per Protocol, Radiology Contrast, Routine Given 07/08/2019 11:56 AM EDT 12 mLs glucagon (human recombinant) injection SolR 0.5 mg 0.5 mg, Intramuscular, ONCE, 1 dose, On Thu07/08/19 at 0745, Radiology Protocol Medication, Routine Given 07/08/2019 11:35 AM EDT 0.5 mg Right Deltoid LORazepam (Ativan) tablet 1 mg 1 mg, Oral, ONCE, 1 dose, On Thu07/08/19 at 0745, Routine Given 07/08/2019 9:56 AM EDT 1 mg documented in this encounter Care Teams Packaging Associate Relationship Specialty Start Date End Date Valarie Phillips MD [address] [facility] [place] [address] PCP - General General Internal Medicine 09/06/17 documented as of this encounter
--- OUTSIDE RECORDS SUMMARY | 2024-04-14 02:13 | XMS_ITS | Encounter Summary ---
[place] [address] Care Team Providers Care Environmental Systems Coordinator Name Role Phone Valarie Phillips MD Primary Care Provider [phone] Reason for Visit * Diagnostic Test (Routine) - Closed Specialty Diagnoses / Procedures Referred By Vashti zeng Referred To Contact Radiology Diagnoses Crohn's disease of both small and large intestine with rectal bleeding Procedures MRI Enterography wwo Contrast Fide Donnelly APRN [facility] [place] [address] [place] [address] Referral ID Status Reason Start Date Expiration Date V isits Requested Visits Authorized [id number] Closed Specialty Service Requested 07/01/2019 12/27/2019 1 1 Encounter Details Date Type Department Care Team (Latest Contact Info) Description 07/08/2019 8:51 AM EDT - 07/08/2019 11:59 PM EDT [place] [address] Fide Donnelly APRN [facility] [place] [address] Discharge Disposition: Home Social History Tobacco Use [...] mouth. 02/03/2022 documented as of this encounter Plan of Treatment Upcoming Encounters Date Type Department Care Team (Late st Contact Info) Description 07/18/2024 1:00 PM EDT TH Visit (TeleHealth) [place] [address] Malinda Christopher MD [facility] [place] [address] documented as of this encounter Goals Goal Patient Goal Type Associated Problems Recent Progress Patient-Stated? Author [facility] Medication Compliance and Understanding Patient Facing [...] report, please contact the number below. ? Narrative 07/08/2019 3:43 PM EDT EXAMINATION: MRI [...] please contact the number below. Fide Donnelly APRN IMG MRI ORDERABLE S documented in this encounter Visit Diagnoses Not on filedocumented in this encounter Care Teams Environmental Systems Coordinator Relationship Specialty Start Date End Date Valarie Phillips MD [address] [place] [address] PCP - General General Internal Medicine 09/06/17 documented as of this encounter
--- OUTSIDE RECORDS SUMMARY | 2024-04-14 02:13 | XMS_ITS | Encounter Summary ---
Author Organization [facility] [place] [address] Care Team Providers Care Kitchen Stewardess Name Role Phone Valarie Phillips MD Primary Care Provider [phone] Encounter Details Date Type Department Care Team (Latest Contact Info) Description 07/04/2019 3:00 PM EDT TH Visit (TeleHealth) [place] [address] Malinda Garnica MD [facility] [place] [address] Crohn's disease of both small and large intestine with rectal bleeding; Crohn's disease of colon with complication Social [...] of this encounter Progress Notes * Malinda Garnica MD - 07/04/2019 3:00 PM EDT GASTROENTEROLOGY TELEMEDICINE PROGRAM - ESTABLISHED PATIENT VISIT Chief Complaint: Janice Mahoney is a 59 y[address] of [address] Phillips here for follow- up of Crohn's disease. Patient Active Problem List Diagnosis ??? Crohn's disease of colon with complication Overview Note: Crohn's Disease: ?? Location: Colonic and mid small bowel, Behavior: Inflammatory perianal disease in form of skin tags ?? Symptoms: worsening hemorrhoids April 2017 undergoes excisional hemorrhoidectomy that did not heal ?? 10/02/17: Colonoscopy ([facility]) Large perianal inflamed skin tags ??found on perianal exam. - The descending colon, splenic flexure, transverse colon, hepatic flexure, ascending colon, cecum, appendiceal orifice and terminal ileum are normal. ?? - Diverticulosis associated with stricturing in the sigmoid [...] segment involving mid small bowel as described abovewith ?? likely Crohn's disease which appears less severe than the colonic segment ?? Started Humira: End of Oct 2017, Rollins Level 12.8 on 12/17/17 Treatments: ?? Started Humira end of 10/2017, 12/17/17 Rollins Humira level 12.8, no antibodies on every two week Humira Health Maintenance: ?? 10/19/17 TB - Quant gold neg ?? 10/19/17 Hep B negative ?? 01/2018 Shingrix first dose. Second Shingrix July 2018. ?? 01/2018 Pneumococcal (presumed Pneumovax) ??? Anal pain ??? Clotting disorder Overview Note: Protein C deficiency ??? Diverticulitis of large intestine without perforation or abscess without bleeding ??? Gallstones IINTERVAL HISTORY: Ms. Mahoney comes to see me for the first time for Crohn's colitis with mid small bowel disease. She was last seen by Megan Donnelly APRN in early May and just had her Humira decreased to weekly. A concentration this month was 14.1. She feels that things are better since going to weekly Humira, Stool frequency is much better, and rectal pain with stooling is much improved. There is some sensitivity there that persists but overall better. Frequency is back to once per day - used to have several each morning. Stool is formed. There is no bleeding - occasional bleeding prior to weekly injections. Tolerating Humira well. One dayafter injections, she seems to have more frequency and crampiness. No nausea and no vomiting. Wt stable. No fevers. Review of systems: 14-point review of systems reviewed and negative except as above. Outpatient Medications Prior to Visit Medication Sig [...] day (Patient not taking: Reported on 12/09/2017) 19 tablet 0 ??? NIFEdipine, Bulk, Powder 0.2% ointment apply to anus two times daily (Patient not taking: Reported on 12/09/2017) 2.5 g 0 ??? lactobacillus rhamnosus, GG, (CULTURELLE) 10 billion cell Capsule Take 1 capsule by mouth daily. ??? DILTIAZEM HCL, BULK, MISC by [facility].(Non-Drug; Combo Route) route. Gel ??? acyclovir (ZOVIRAX) 200 mg Capsule ??? Guar Gum Packet Take by mouth. ??? docusate sodium (COLACE ORAL) Take by mouth. No facility-administered medications prior to visit. Allergies: is allergic to [place] and polyethylene glycol analogues. Past Medical History: has a past medical history of Diverticulitis and Hemorrhagic disorder. Past Surgical History: has a past surgical history that includes Colonoscopy, Diagnostic (34445) (02/19/2012); Cholecystectomy; Hysterectomy; Hemorrhoid surgery; and Colonoscopy, Biopsy (16278) (N/A,10/02/2017). Family History: family history includes Cancer in her maternal grandmother and paternal grandmother. Social History: reports that she has quit smoking. She has never used smokeless tobacco. She reports current alcohol use of about 5.0 standard drinks of alcohol per week. No Physical Examination performed during this telemedicine visit Laboratory studies, imaging, and procedures (my review of prior records): CBC and LFTs from 05/2019. The alk phos was 109. Calprotectin 05/29 115 Assessment: Ms. Mahoney is a 59 y.o. patient with mid small bowel Crohn's disease and also Crohn's colitis. Clinically, she seems to be doing well. A fecal calprotectin in May was only mildly elevated. Moreover, symptoms seem to be much better on weekly Humira. Likewise, a Rollins level is within target. We discussed that a prior antidrug antibody test is concerning. I would recommend obtaining Prometheus Anser ADA testing because I think it is the best validated evaluation of antidrug antibody with a drug tolerant assay. She will be at [facility] on Thursday for an MR enterography and can get blood drawn at that time. If there is evidence of antidrug antibody, would consider adding in methotrexate or potentially thiopurine. We will await results of her enterography. Will need a colonoscopy done for restaging later this year once scheduling resumes. Otherwise, she will continue Humira weekly. Recommendations: # Continue Humira weekly # Recommend Prometheus concentration of adalimumab given concern for anti-drug Ab # MRE as scheduled for this Thursday # Please have your labs (complete blood count, liver tests, and C-reactive protein) checked once every 3-4 months # Avoid non-steroidal anti-inflammatory medications (NSAIDs) including but not limited to Advil, ibuprofen, Motrin, Aleve, Excedrin, naproxen, Mobic, indomethacin, and aspirin. Acetaminophen (Tylenol) is okay for aches and pains. # Recommend colonoscopy prior to the end of this year. Once COVID-19 pandemic restrictions mp, then will schedule to be done. # Follow-up with Megan Donnelly APRN in 6 months. I spent 20 minutes face to face with the patient. 28 minutes were spent on counseling and discussion as of the above during this telemedicine visit. The patient was located in [place] at the time of their visit. Malinda GARNICA MD [facility] [place] [address] [address] documented in this encounter Miscellaneous Notes * Addendum Note - Yaneli Contreras RN - 07/04/2019 3:00 PM EDTAddended by: YANELI CONTRERAS on: 07/04/2019 03:54 PM Modules accepted: Orders documented in this encounter Plan of Treatment Upcoming Encounters Date Type Department Care Team (Late st Contact Info) Description 07/18/2024 1:00 PM EDT TH Visit (TeleHealth) [place] [address] Malinda Garnica MD [facility] [place] [address] documented as of this encounter Goals Goal Patient Goal Type Associated Problems Recent Progress Patient-Stated? Author [facility] Medication Compliance and Understanding Patient Facing Action Plan Lakeisha Matos, [facility] Note: Achieve and maintain control of Crohn's symptoms as assessed by specialist every 3 to 6 months or more documented as of this encounter Results * Miscellaneous Lab request (07/08/2019 1:17 PM EDT) Label Request received in lab. [facility] Blood specimen (specimen) 07/08/2019 1:17 PM EDT 07/08/2019 1:21 PM EDT Narrative Resulting Agency Comment Spec In Lab Malinda Garnica MD LAB SEND OUT ORDERAB LES [facility] [place] [place] [address] documented in this encounter Visit Diagnoses Diagnosis Crohn's disease of both small and large intestine with rectal bleeding Regional enteritis of small intestine with large intestine Crohn's disease of colon with complication documented in this encounter Care Teams Kitchen Stewardess Relationship Specialty Start Date End Date Valarie Phillips MD [address] [place] [address] PCP - General General Internal Medicine 09/06/17 documented as of this encounter
--- OUTSIDE RECORDS SUMMARY | 2024-04-14 02:13 | XMS_ITS | Encounter Summary ---
Author Organization [facility] [place] [place] [address] Care Team Providers Care Elder Assistant Name Role Phone Valarie Phillips MD Primary Care Provider [phone] Reason for Visit * Reason Comments Medication Management Encounter Details Date Type Department Care Team (Late st Contact Info) Description 05/11/2019 Specialty Pharmacy Pharmacy at [facility] [place] [address] Frannie Araya [facility] Social History Tobacco Use Types [...] Progress Notes * Frannie Araya RPH - 05/11/2019 8:43 AM EST Clinical Management Plan: Refill Specialty Pharmacy Consultation; Frannie Araya L[facility] Comprehensive Medication Management (CMM) Janice Mahoney is a 59 y.o. (1960) female who was contacted in regard to a specialty medication refill reminder. Spoke with patient regarding Humira. A review of the medication therapy was performed. The medication will be Refilled as scheduled once new prescription is received, and all medication related questions and concerns [...] beneficiary Provider: plan sponsor pharmacist Visit Type: [facility] Follow-up Method of Contact: by telephone Cognitive Ability: good Cognitive Impairment Status Verified this Year: no Allergies and Drug intolerance: Allergies Allergen Reactions ??? [place] ??? Polyethylene Glycol Analogues Hives Medication Reconciliation Discrepancies (compared to [facility] med list) -None New medications: no New [...] review and follow up. Frannie Araya RPH 05/11/19 8:44 AM documented in this encounter Plan of Treatment Upcoming Encounters Date Type Department Care Team (Late st Contact Info) Description 07/18/2024 1:00 PM EDT TH Visit (TeleHealth) [place] [address] Malinda Christopher MD [facility] [place] [address] documented as of this encounter Goals Goal Patient Goal Type Associated Problems Recent Progress Patient-Stated? Author [facility] Medication Compliance and Understanding Patient Facing Action Plan Lakeisha Matos [facility] Note: Achieve and maintain control of Crohn's symptoms as assessed by specialist every 3 to 6 months or more documented as of this encounter Visit Diagnoses Not on filedocumented in this encounter Care Teams Elder Assistant Relationship Specialty Start Date End Date Valarie Phillips MD [address] [place] [address] PCP - General General Internal Medicine 09/06/17 documented as of this encounter
--- OUTSIDE RECORDS SUMMARY | 2024-04-14 02:13 | XMS_ITS | Encounter Summary ---
Author Organization [facility] [place] [address] Care Team Providers Care Skin Washer Name Role Phone Valarie Phillips MD Primary Care Provider [phone] Encounter Details Date Type Department Care Team (Late st Contact Info) Description 05/16/2019 Specialty [place] [address] Irlanda Schrader, [facility] Social History Tobacco Use Types [...] PM EDT TH Visit (TeleHealth) [place] [address] Malinda Christopher MD [facility] [place] [address] documented as of this encounter Goals Goal [...] on filedocumented in this encounter Care Teams Skin Washer Relationship Specialty Start Date End Date Valarie Phillips MD [address] [place] [address] PCP - General General Internal Medicine 09/06/17 documented as of this encounter
--- OUTSIDE RECORDS SUMMARY | 2024-04-14 02:13 | XMS_ITS | Encounter Summary ---
[place] [address] Care Team Providers Care Cover Remover Name Role Phone Valarie Phillips MD Primary Care Provider [phone] Reason for Visit * Reason Onset Date Comments Medication Refill 06/06/2019 Encounter Details Date Type Department Care Team (Late st Contact Info) Description 06/06/2019 Refill [place] [address] Fide Donnelly, ROMULO [facility] [place] [address] Social History Tobacco Use Types Packs/Day Years [...] PM EDT TH Visit (TeleHealth) [place] [address] Malinda Christopher MD [facility] [place] [address] documented as of this encounter Goals Goal Patient Goal Type Associated Problems Recent Progress Patient-Stated? Author [facility] Medication Compliance and Understanding Patient Facing Action Plan Lakeisha Matos, [facility] Note: Achieve and maintain control of Crohn's symptoms as assessed by specialist every 3 to 6 months or more documented as of this encounter Visit Diagnoses Not on filedocumented in this encounter Care Teams Cover Remover Relationship Specialty Start Date End Date Valarie Phillips MD [address] [place] [address] PCP - General General Internal Medicine 09/06/17 documented as of this encounter
--- OUTSIDE RECORDS SUMMARY | 2024-04-14 02:13 | XMS_ITS | Encounter Summary ---
Author Organization [facility] [place] [address] Care Team Providers Care Door Clamp Operator Name Role Phone Valarie Phillips MD Primary Care Provider [phone] Reason for Visit * Reason Comments Medication Management Encounter Details Date Type Department Care Team (Late st Contact Info) Description 10/12/2019 Specialty Pharmacy Pharmacy at [facility] [place] [address] Seble Hong [facility] Social History Tobacco Use Types Packs/Day [...] Progress Notes * Seble Carrington RPH - 10/12/2019 8:58 AM EDT Clinical Management Plan: Refill Specialty Pharmacy Consultation; Seble Carrington Lacy Comprehensive Medication Management (CMM) Janice Mahoney Ms. [...] beneficiary Provider: plan sponsor pharmacist Visit Type: [facility] Follow-up Method of Contact: by telephone Cognitive Ability: good Cognitive Impairment Status Verified this Year: no Allergies and Drug intolerance: Allergies Allergen Reactions ??? [place] ??? Polyethylene Glycol Analogues Hives Medication Reconciliation Discrepancies (compared to [facility] med list) -None New medications: no New [...] made at the appointment and that [facility] is providing recommendations (summary located at top of note) for provider review and follow up. Seble Carrington RPH 10/12/19 8:59 AM documented in this encounter Plan of Treatment Upcoming Encounters Date Type Department Care Team (Late st Contact Info) Description 07/18/2024 1:00 PM EDT TH Visit (TeleHealth) [place] [address] Malinda Christopher MD [facility] [place] [address] documented as of this encounter Goals Goal Patient Goal Type Associated Problems Recent Progress Patient-Stated? Author [facility] Medication Compliance and Understanding Patient Facing Action Plan Lakeisha Matos [facility] Note: Achieve and maintain control of Crohn's symptoms as assessed by specialist every 3 to 6 months or more documented as of this encounter Visit Diagnoses Not on filedocumented in this encounter Care Teams Door Clamp Operator Relationship Specialty Start Date End Date Valarie Phillips MD [address] [place] [address] PCP - General General Internal Medicine 09/06/17 documented as of this encounter
--- OUTSIDE RECORDS SUMMARY | 2024-04-14 02:13 | XMS_ITS | Encounter Summary ---
Author Organization [facility] [place] [address] Care Team Providers Care Special Events Manager Name Role Phone Valarie Phillips MD Primary Care Provider [phone] Reason for Visit * Reason Comments Medication Management Encounter Details Date Type Department Care Team (Late st Contact Info) Description 02/16/2019 Specialty [place] [address] Farhan Garcia, [facility] Social History Tobacco Use Types [...] as of this encounter Progress Notes * Farhan Garcia [facility] - 02/16/2019 1:28 PM EST Clinical Management Plan: Refill Specialty Pharmacy Consultation; Farhan Garcia [facility] Comprehensive Medication Management (CMM) Janice Petty Denzel Ms. Janice Mahoney is a 58 y.o. (1960) female who was contacted in regard to a specialty medication refill reminder. Spoke with patient regarding HUMIRA. A review of the medication therapy was [...] provider Recipient: beneficiary Provider: plan sponsor pharmacist Method of Contact: by telephone Cognitive Ability: good Cognitive Impairment Status Verified this Year: no Allergies and Drug intolerance: Allergies Allergen Reactions ??? [place] ??? Polyethylene Glycol Analogues Hives Medication Reconciliation Discrepancies (compared to [facility] med list) - none New medications: no New medical conditions: no New allergies: no Adherence: Medication Adherence Patient reported X missed doses in the last month: 0 Any gaps in refill history greater than 2 weeks in the last 3 months: no Demonstrates understanding of importance of adherence: yes Informant: patient Reliability of informant: reliable Provider-estimated medication adherence level: 90-100% Adherence tools used: directed education Support network for adherence: healthcare provider Confirmed plan for next specialty medication refill: delivery by pharmacy Are you experiencing any side effects from your medications? no Pt understands no changes to current drug regimen were made at the appointment and that [facility] is providing recommendations (summary located at top of note) for provider review and follow up. Farhan Garcia RPH 02/16/19 1:30 PM documented in this encounter Plan of Treatment Upcoming Encounters Date Type Department Care Team (Late st Contact Info) Description 07/18/2024 1:00 PM EDT TH Visit (TeleHealth) [place] [address] Malinda Christopher MD [facility] [place] [address] documented as of this encounter Goals Goal Patient Goal Type Associated Problems Recent Progress Patient-Stated? Author [facility] Medication Compliance and Understanding Patient Facing Action Plan Lakeisha Matos [facility] Note: Achieve and maintain control of Crohn's symptoms as assessed by specialist every 3 to 6 months or more documented as of this encounter Visit Diagnoses Not on filedocumented in this encounter Care Teams Special Events Manager Relationship Specialty Start Date End Date Valarie Phillips MD [address] [place] [address] PCP - General General Internal Medicine 09/06/17 documented as of this encounter
--- OUTSIDE RECORDS SUMMARY | 2024-04-14 02:13 | XMS_ITS | Encounter Summary ---
Author Organization [facility] [place] [address] Care Team Providers Care Java Golden Gate Developer Name Role Phone Valarie Phillips MD Primary Care Provider [phone] Encounter Details Date Type Department Care Team (Late st Contact Info) Description 05/23/2019 Telephone Gastroenterology at [facility] [place] [place] [address] Fide Donnelly, PSYCHIATRIC SECRETARY [facility] [place] [address] Social History Tobacco Use Types Packs/Day Years [...] encounter Miscellaneous Notes * Telephone Encounter - Fide Donnelly, ROMULO - 05/23/2019 6:04 PM EDT I spoke with Janice today. Given increased GI sxs when I saw her in clinic and elevated ESR 42 ( was 8 last Oct 2018)and CRP 32.8 ( was 1.3 last Jan 2019) and recent ADA level that decreased from 11( 04/2018) to 7.6 ( 05/2019), it would be reasonable to try an increased dose of Humira 40 mg weekly ( from Q 2 weeks) than using steroids which she prefers not to take. We could always go back on Humira q 2 weeks in the future, pending sxs, labs and drug levels. We are getting MRE already scheduled for 05/29 and EGD/COL ( June). To restage disease. I rec the following: - Humira 40 mg weekly ( from q 2 weeks.). We will start once insurance approved. - get ADA levels after 4 doses on weekly humira She understood this and agreed on Humira weekly dosing. documented in this encounter Plan of Treatment Upcoming Encounters Date Type Department Care Team (Late st Contact Info) Description 07/18/2024 1:00 PM EDT TH Visit (TeleHealth) [place] [address] Malinda Christopher MD [facility] [place] [address] documented as of this encounter Goals Goal Patient Goal Type Associated Problems Recent Progress Patient-Stated? Author [facility] Medication Compliance and Understanding Patient Facing Action Plan Lakeisha Matos, [facility] Note: Achieve and maintain control of Crohn's symptoms as assessed by specialist every 3 to 6 months or more documented as of this encounter Visit Diagnoses Not on filedocumented in this encounter Care Teams Java Golden Gate Developer Relationship Specialty Start Date End Date Valarie Phillips MD [address] [place] [address] PCP - General General Internal Medicine 09/06/17 documented as of this encounter
--- OUTSIDE RECORDS SUMMARY | 2024-04-14 02:13 | XMS_ITS | Encounter Summary ---
Author Organization [facility] [place] [address] Care Team Providers Care Upholsterer Outside Name Role Phone Valarie Phillips MD Primary Care Provider [phone] Reason for Visit * Reason Onset Date Comments Medication Refill 05/23/2019 Encounter Details Date Type Department Care Team (Late st Contact Info) Description 05/23/2019 [place] [address] Meme Garza RN Social History Tobacco Use Types Packs/Day [...] PM EDT TH Visit (TeleHealth) [place] [phone] Malinda Christopher MD [facility] [place] [address] documented as of this encounter Goals Goal Patient Goal Type Associated Problems Recent Progress Patient-Stated? Author [facility] Medication Compliance and Understanding Patient Facing Action Plan Lakeisha Matos, [facility] Note: Achieve and maintain control of Crohn's symptoms as assessed by specialist every 3 to 6 months or more documented as of this encounter Visit Diagnoses Not on filedocumented in this encounter Care Teams Upholsterer Outside Relationship Specialty Start Date End Date Valarie Phillips MD [address] [place] [address] PCP - General General Internal Medicine 09/06/17 documented as of this encounter
--- OUTSIDE RECORDS SUMMARY | 2024-04-14 02:13 | XMS_ITS | Encounter Summary ---
[place] [address] Care Team Providers Care Clin Tech Name Role Phone Valarie Phillips MD Primary Care Provider [phone] Encounter Details Date Type Department Care Team (Late st Contact Info) Description 08/15/2019 Specialty Pharmacy [place] [address] Lary Mckinney, [facility] Social History Tobacco Use Types Packs/Day Years [...] PM EDT TH Visit (TeleHealth) [place] [phone] Malinda Christopher MD [facility] [place] [place] [address] documented as of this encounter Goals Goal Patient Goal Type Associated Problems Recent Progress Patient-Stated? Author [facility] Medication Compliance and Understanding Patient Facing Action Plan Lakeisha Matos, [facility] Note: Achieve and maintain control of Crohn's symptoms as assessed by specialist every 3 to 6 months or more documented as of this encounter Visit Diagnoses Not on filedocumented in this encounter Care Teams Clin Tech Relationship Specialty Start Date End Date Valarie Phillips MD [address] [place] [address] PCP - General General Internal Medicine 09/06/17 documented as of this encounter
--- OUTSIDE RECORDS SUMMARY | 2024-04-14 02:13 | XMS_ITS | Encounter Summary ---
Author Organization [facility] [place] [place] [address] Care Team Providers Care Polisher And Sander Name Role Phone Valarie Phillips MD Primary Care Provider [phone] Encounter Details Date Type Department Care Team (Late st Contact Info) Description 06/22/2019 Notes [place] [address] Fide Donnelly APRN [facility] [place] [address] Social History Tobacco Use Types Packs/Day Years [...] as of this encounter Progress Notes * Fide Donnelly APRN - 06/22/2019 8:46 AM EDT 06/16/19 ADA level : 14.1 on Humira 40 mg q week. Will continue current dose. documented in this encounter Plan of Treatment Upcoming Encounters Date Type Department Care Team (Late st Contact Info) Description 07/18/2024 1:00 PM EDT TH Visit (TeleHealth) [place] [address] Malinda Christopher MD [facility] [address] documented as of this encounter Goals Goal [...] on filedocumented in this encounter Care Teams Polisher And Sander Relationship Specialty Start Date End Date Valarie Phillips MD [address] [facility] [place] [address] PCP - General General Internal Medicine 09/06/17 documented as of this encounter
--- OUTSIDE RECORDS SUMMARY | 2024-04-14 02:13 | XMS_ITS | Encounter Summary ---
Author Organization [facility] [place] [address] Care Team Providers Care Engraver Flatware Name Role Phone Valarie Phillips MD Primary Care Provider [phone] Reason for Visit * Reason Comments Medication Management Encounter Details Date Type Department Care Team (Late st Contact Info) Description 11/11/2019 Specialty Pharmacy [place] [address] Jennie Barkley Lacy Social History Tobacco Use Types Packs/Day Years [...] as of this encounter Progress Notes * Jennei Barkley RPH - 11/11/2019 9:40 AM EDT Clinical Management Plan: Refill Specialty [...] a change made to the Care Plan: yes- patient is now injecting Humira every week instead of every 2 weeks Assessment and Recommendations: Title Type of Medication Management: chronic disease management, targeted medication review Referred By: provider Recipient: beneficiary Provider: plan sponsor pharmacist Visit Type: [facility] Follow-up Method of Contact: by telephone Cognitive Ability: good Cognitive Impairment Status Verified this Year: no Allergies and Drug intolerance: Allergies Allergen Reactions ??? [place] Medication Reconciliation Discrepancies (compared to [facility] med list) -no New medications: [...] were made at the appointment and that [facility] is providing recommendations (summary located at top of note) for provider review and follow up. Jennie Barkley RPH 11/11/19 9:41 AM documented in this encounter Plan of Treatment Upcoming Encounters Date Type Department Care Team (Late st Contact Info) Description 07/18/2024 1:00 PM EDT TH Visit (TeleHealth) [place] [address] Malinda Christopher MD [facility] [place] [address] documented as of this encounter Goals Goal Patient Goal Type Associated Problems Recent Progress Patient-Stated? Author [facility] Medication Compliance and Understanding Patient Facing Action Plan No Lakeisha Kent [facility] Note: Achieve and maintain control of Crohn's symptoms as assessed by specialist every 3 to 6 months or more documented as of this encounter Visit Diagnoses Not on filedocumented in this encounter Care Teams Engraver Flatware Relationship Specialty Start Date End Date Valarie Phillips MD [address] [place] [address] PCP - General General Internal Medicine 09/06/17 documented as of this encounter
--- OUTSIDE RECORDS SUMMARY | 2024-04-14 02:13 | XMS_ITS | Encounter Summary ---
Author Organization [facility] [place] [address] Care Team Providers Care Calibration Checker Name Role Phone Valarie Phillips MD Primary Care Provider [phone] Encounter Details Date Type Department Care Team (Late st Contact Info) Description 11/26/2019 Telephone [place] [phone] Yarelis Milian Social History Tobacco Use Types [...] * Telephone Encounter - Yarelis Milian - 11/26/2019 12:46 PM EDT Left vm to convert Ashwin apt to a in clinic apt or reschedule for a day he is doing video visits documented in this encounter Plan of Treatment Upcoming Encounters Date Type Department Care Team (Late st Contact Info) Description 07/18/2024 1:00 PM EDT TH Visit (TeleHealth) [place] [address] Malinda Christopher MD [facility] [place] [address] documented as of this encounter Goals Goal Patient Goal Type Associated Problems Recent Progress Patient-Stated? Author [facility] Medication Compliance and Understanding Patient Facing Action Plan Lakeisha Matos, [facility] Note: Achieve and maintain control of Crohn's symptoms as assessed by specialist every 3 to 6 months or more documented as of this encounter Visit Diagnoses Not on filedocumented in this encounter Care Teams Calibration Checker Relationship Specialty Start Date End Date Valarie Phillips MD [address] [place] [address] PCP - General General Internal Medicine 09/06/17 documented as of this encounter
--- OUTSIDE RECORDS SUMMARY | 2024-04-14 02:13 | XMS_ITS | Encounter Summary ---
Author Organization [facility] [place] [address] Care Team Providers Care Fiberglass Boat Maker Name Role Phone Valarie Phillips MD Primary Care Provider [phone] Reason for Visit * Reason Comments Medication Management Encounter Details Date Type Department Care Team (Late st Contact Info) Description 03/11/2019 Specialty Pharmacy Pharmacy at [facility] [place] [address] Yesy Jackson [facility] Social History Tobacco Use Types [...] as of this encounter Progress Notes * Yesy Jackson RPH - 03/11/2019 12:16 PM EST Clinical Management Plan: Refill Specialty Pharmacy Consultation; Yesy Jackson Lacy Comprehensive Medication Management (CMM) Janice Petty Mahoney Ms. Janice Mahoney is a 59 y.o. (1960) female who was contacted in regard to a specialty medication refill reminder. Spoke with patient regarding Humira. A review of the medication therapy was performed. The medication will be Refilled as scheduled, and all medication related questions and concerns were addressed. The specialty pharmacy staff will follow up with the patient 5-7 days prior tonext refill. Was a change made to the Care Plan: no If yes, should the medication be held: No Assessment and Recommendations: Title Type of Medication Management: chronic disease management, targeted medication review Referred By: provider Recipient: beneficiary Provider: plan sponsor pharmacist Visit Type: [facility] Follow-up Method of Contact: by telephone Cognitive Ability: good Cognitive Impairment Status Verified this Year: no Allergies and Drug intolerance: Allergies Allergen Reactions ??? [place] ??? Polyethylene Glycol Analogues Hives Medication Reconciliation Discrepancies (compared to [facility] med list) -none New medications: no New [...] note) for provider review and follow up. Yesy Jackson RPH 03/11/19 12:32 PM documented in this encounter Plan of Treatment Upcoming Encounters Date Type Department Care Team (Late st Contact Info) Description 07/18/2024 1:00 PM EDT TH Visit (TeleHealth) [place] [address] Malinda Christopher MD [facility] [place] [address] documented as of this encounter Goals Goal Patient Goal Type Associated Problems Recent Progress Patient-Stated? Author [facility] Medication Compliance and Understanding Patient Facing Action Plan Lakeisha Matos [facility] Note: Achieve and maintain control of Crohn's symptoms as assessed by specialist every 3 to 6 months or more documented as of this encounter Visit Diagnoses Not on filedocumented in this encounter Care Teams Fiberglass Boat Maker Relationship Specialty Start Date End Date Valarie Phillips MD [address] [place] [address] PCP - General General Internal Medicine 09/06/17 documented as of this encounter
--- OUTSIDE RECORDS SUMMARY | 2024-04-14 02:13 | XMS_ITS | Encounter Summary ---
Author Organization [facility] [place] [address] Care Team Providers Care Extension Specialist Name Role Phone Valarie Phillips MD Primary Care Provider [phone] Reason for Visit * Reason Comments Crohn's Disease Encounter Details Date Type Department Care Team (Latest Contact Info) Description 08/15/2019 11:00 AM EDT TH Visit (TeleHealth) [place] [address] Malinda Garnica MD [facility] [place] [address] Crohn's disease of colon with complication Social [...] Progress Notes * Malinda Garnica MD - 08/15/2019 11:00 AM EDT GASTROENTEROLOGY TELEMEDICINE PROGRAM - ESTABLISHED PATIENT VISIT Chief Complaint: Janice Mahoney is a 59 y[address] of [address] Phillips here for follow- up of Crohn's disease. Patient Active Problem List Diagnosis ??? Crohn's disease of colon with complication Overview Note: ?? Location: Colonic and mid small bowel, Behavior: Inflammatory perianal disease in form of skin tags ?? Symptoms: worsening hemorrhoids April 2017 undergoes excisional hemorrhoidectomy that did not heal ?? 10/02/17: [place] Large perianal inflamed skin tags ??found on [...] ?? Started Humira end of 10/2017, 12/17/17 [place] Humira level 12.8, no antibodies on every two week Humira Health Maintenance: ?? 10/19/17 TB - Quant gold neg ?? 10/19/17 Hep B negative ?? 01/2018 Shingrix first dose. Second Shingrix July 2018. ?? 01/2018 Pneumococcal (presumed Pneumovax) ??? Anal pain ??? Clotting disorder Overview Note: Protein C deficiency ??? Diverticulitis of large intestine without perforation or abscess without bleeding ??? Gallstones INTERVAL HISTORY Ms. Mahoney follows up via video telehealth for Crohn's disease. Since our last visit, she had blood drawn on weekly Humira at [facility] which showed an adalimumab concentration of 20 without any antidrug antibodies. She continues to think that Humira helped her symptoms significantly. She also had an MR enterography with enhancement and thickening in the distal descending colon and sigmoid. There was question of a 5 cm segment within the terminal ileum where there was thickening but no enhancement. She has times when she feels quite well with 1-2 formed stools per day. She will then have episodeslasting several days of left lower quadrant discomfort. There can also be days when she feels the urge to move her bowels but then can only pass small volume semi-formed stool with a frequency up to 6 bowel movements within a day. There is no blood with the exception of just a small amount to begin some stools. There is been no nausea or vomiting, abnormal weight loss, perianal pain or lesions. She is tolerating Humira without any difficulties and continues to take it weekly without missing doses. Review of systems: 14-point review of systems [...] daily. ??? DILTIAZEM HCL, BULK, MISC by [facility].(Non-Drug; Combo Route) route. Gel ??? acyclovir (ZOVIRAX) 200 mg Capsule ??? Guar Gum Packet Take by mouth. ??? docusate sodium (COLACE ORAL) Take by mouth. No facility-administered medications prior to visit. Allergies: is allergic to saxman and polyethylene glycol analogues. Past Medical History: has a past medical history of Diverticulitis and Hemorrhagic disorder. Past Surgical History: has a past surgical history that includes Colonoscopy, Diagnostic (53089) (02/19/2012); Cholecystectomy; Hysterectomy; Hemorrhoid surgery; and Colonoscopy, Biopsy (44652) (N/A,10/02/2017). Family History: family history includes Asthma in [...] records): Lab Results Component Value Date WBC 8.4 07/08/2019 RBC 4.14 07/08/2019 HGB 12.5 07/08/2019 HCT 38.0 07/08/2019 MCV 91.8 07/08/2019 MCH 30.2 07/08/2019 MCHC 32.9 07/08/2019 PLATELET 248 07/08/2019 RDWCV 12.4 07/08/2019 Lab Results Component Value Date CRP 0.8 07/08/2019 Lab Results Component Value Date NA 140 05/16/2019 K 4.3 05/16/2019 CL 102 05/16/2019 CO2 27 05/16/2019 BUN 7 (L) 05/16/2019 CREATININE 0.56 (L) 05/16/2019 GLUCOSE 99 05/16/2019 CALCIUM 9.5 05/16/2019 ESTGFR 101 05/16/2019 Lab Results Component Value Date ALT 21 07/08/2019 AST 30 07/08/2019 ALKPHOS 67 07/08/2019 BILITOT 0.3 07/08/2019 BILIDIR 0.1 07/08/2019 ALBUMIN 4.2 07/08/2019 PROT 7.5 07/08/2019 Assessment/Plan: Ms. Mahoney is a 59 y.o. patient with Crohn's colitis and question of mid small bowel disease. She hada nice response to Humira, but she continues to have symptoms that may be related to persistently active left-sided colonic disease. She also has times when she has urgency and perhaps tenesmus that could be related to more distal colonic disease. Of note, she had an anorectal manometry last year which was normal. We talked about potentially changing therapies given a partial but not complete response to Humira.We would consider Stelara in that case. However, she would like to hold off for now since she feelsthat her symptoms are so much better. I explained that symptoms do not always track with severity of disease, and, therefore, proposed a plan to follow-up objective markers as well. If she is feeling poorly between now and her next visit in 4 months, we will plan on rechecking a fecal calprotectin. Could also consider hydrocortisone enemas for short period at that time. Based oncalprotectin, would then consider either repeat colonoscopy or simply changing to Stelara with follow-up colonoscopy 4 to 5 months after that. Recommendations: 1. Continue Humira weekly 2. Follow-up routine labs at [facility] in October or November 3. For worsening symptoms for now and then, she will contact us. We will check a fecal calprotectinand consider a two-week empiric trial of hydrocortisone enemas. Pending those results, consider changing to ustekinumab potentially after restaging colonoscopy. 4. Follow-up via telehealth with or Megan Donnelly in 4 months I spent 19 minutes face to face with the patient. 17 minutes were spent on counseling and discussion as of the above during this telemedicine visit. The patient was located in [place] at the time of their visit. Malinda GARNICA MD [facility] [place] [address] documented in this encounter Plan of Treatment Upcoming Encounters Date Type Department Care Team (Late st Contact Info) Description 07/18/2024 1:00 PM EDT TH Visit (TeleHealth) Gastroenterology at [facility] [place] [address] Malinda Garnica MD [facility] [place] [address] documented as of this encounter Goals Goal Patient Goal Type Associated Problems Recent Progress Patient-Stated? Author [facility] Medication Compliance and Understanding Patient Facing Action Plan Lakeisha Matos, [facility] Note: Achieve and maintain control of Crohn's symptoms as assessed by specialist every 3 to 6 months or more documented as of this encounter Visit Diagnoses Diagnosis Crohn's disease of colon with complication documented in this encounter Care Teams Extension Specialist Relationship Specialty Start Date End Date Valarie Phillips MD [address] [place] [address] PCP - General General Internal Medicine 09/06/17 documented as of this encounter
--- OUTSIDE RECORDS SUMMARY | 2024-04-14 02:13 | XMS_ITS | Encounter Summary ---
Author Organization [facility] [place] [address] Care Team Providers Care Gang Pusher Name Role Phone Valarie Phillips MD Primary Care Provider [phone] Encounter Details Date Type Department Care Team (Late st Contact Info) Description 07/06/2019 Telephone [place] [phone] Tamiko Chambers Social History Tobacco Use Types Packs/Day Years [...] PM EDT TH Visit (TeleHealth) [place] [address] Malinda Christopher MD [facility] [place] [address] documented as of this encounter Goals Goal Patient Goal Type Associated Problems Recent Progress Patient-Stated? Author [facility] Medication Compliance and Understanding Patient Facing Action Plan Lakeisha Matos, [facility] Note: Achieve and maintain control of Crohn's symptoms as assessed by specialist every 3 to 6 months or more documented as of this encounter Visit Diagnoses Not on filedocumented in this encounter Care Teams Gang Pusher Relationship Specialty Start Date End Date Valarie Phillips MD [address] [place] [address] PCP - General General Internal Medicine 09/06/17 documented as of this encounter
--- OUTSIDE RECORDS SUMMARY | 2024-04-14 02:14 | XMS_ITS | Encounter Summary ---
[place] [address] Care Team Providers Care Renal Case Manager Name Role Phone Valarie Phillips MD Primary Care Provider [phone] Reason for Visit * Reason Comments Medication Management Patient Education Encounter Details Date Type Department Care Team (Late st Contact Info) Description 12/08/2018 Specialty [place] [address] Yesy Jackson RPH Social History Tobacco Use Types Packs/Day [...] Progress Notes * Yesy Jackson RPH - 12/08/2018 4:18 PM EDT Specialty Pharmacy Consultation; Yesy Jackson RPH Comprehensive Medication Management (CMM) Janice Mahoney Diagnosis: Crohn's Disease Therapy Start Date: 11/05/2017 Contact in person or via telephone: telephone Ms. Janice Mahoney is a 58 y.o. (1960) female who was contacted in regard to specialty medication. Spoke with patient regarding Humira. A review of the medication therapy was performed. The specialty pharmacy staff will follow up with the patient 5-7 days prior to next refill. Is the patient willing to proceed with the Clinical Assessment? Yes Summary and Recommendations: Janice Mahoney is a pleasant 58 y.o. female who was contacted for a consultation on Humira. The patient was able to verbalize understanding of the directions, storage requirements, clinical rationale,and possible adverse events of the medication. Proper injection technique was reviewed including rotation of injection sites, storage, and safe disposal of injection device. Allergies, medications, and medical conditions were reviewed at length including review for possible contraindications and interactions. She also stated that she has received her flu shout about 3 weeks ago. The patient was informed of the variety of services that the Specialty Pharmacy will provide to them as one of our patients. She also mentioned a brief lapse in her insurance coverage as she transitions to COBRA coverage, but states it should be reinstated within the next week in time for her next refill. Clinic follow-up needed: no Allergies and Drug intolerance: Allergies Allergen Reactions ??? [place] ??? Polyethylene Glycol Analogues Hives Special Dietary or Hydration Requirements: no There is no height or weight on file to calculate BMI. Medication Reconciliation Discrepancies (compared to [facility] med list) yes - she is taking omeprazole 20mg, not 10mg. Not taking meloxicam, acyclovir, culturelle Medication Adherence Patient reported X missed doses [...] Medications Medication Sig Note Dispense Refill ??? omeprazole (PRILOSEC) 20 mg Capsule, Delayed Release(E.C.) Take 20 mg by mouth daily. ??? adalimumab 40 mg/0.4 mL Pen Injector Kit Inject 40 mg subcutaneously every 14 days. 3 kit 1 ??? lidocaine (XYLOCAINE) 2 % [...] takes one capful every other day. ??? docusate sodium (COLACE ORAL) Take by mouth. 11/02/2017: As needed. ??? omeprazole (PRILOSEC) 10 mg Capsule, Delayed Release(E.C.) Take 10 mg by mouth daily. ??? meloxicam (MOBIC) 7.5 mg Tablet Take 1 tablet by mouth 2 times daily as needed. ??? predniSONE (DELTASONE) 5 mg Tablet 40 [...] by mouth. 11/02/2017: Patient is not taking. No current facility-administered medications for this visit. Most Recent Vitals: Ht Readings from Last 1 Encounters: 11/05/18 152.4 cm (5') Wt Readings from Last 3 Encounters: 11/05/18 62.3 kg (137 lb 6.4 oz) 08/20/18 58.5 kg (129 lb) 04/28/18 62.8 kg (138 lb 6.4 oz) Temp Readings from Last 3 Encounters: 09/15/17 36.6 ??C (97.9 ??F) BP Readings from Last 3 Encounters: 11/05/18 117/61 08/20/18 132/74 04/28/18 116/53 Pulse Readings from Last 3 Encounters: 11/05/18 91 08/20/18 66 04/28/18 84 Pertinent Lab values: Lab Results Component Value Date NA 141 11/05/2018 K 4.5 11/05/2018 CL 104 11/05/2018 CO2 28 11/05/2018 BUN 18 11/05/2018 CREATININE 0.72 11/05/2018 GLUCOSE 105 11/05/2018 CALCIUM 9.0 11/05/2018 Lab Results Component Value Date ALT 25 11/05/2018 AST 22 11/05/2018 ALKPHOS 76 11/05/2018 BILITOT <0.2 (L) 11/05/2018 BILIDIR 0.1 08/20/2018 ALBUMIN 4.4 11/05/2018 PROT 7.7 11/05/2018 Lab Results Component Value Date WBC 6.1 11/05/2018 HGB 12.9 11/05/2018 HCT 38.7 11/05/2018 MCV 92.1 11/05/2018 PLATELET 254 11/05/2018 No results found for: HA1C Immunization History Administered Date(s) Administered ??? Influenza Vaccine w/Preservative, Seasonal, Injectable 01/19/2018 ??? Pneumococcal Polyvalent 23 01/26/2018 ??? Zoster, Recombinant 01/26/2018 Assessment and Recommendations: Title Type of Medication Management: chronic disease management, comprehensive medication review Referred By: provider Recipient: beneficiary Provider: plan sponsor pharmacist Visit Type: [facility] Follow-up Method of Contact: by telephone Cognitive [...] possible drug and prescription drug interactions discussed, lab monitoring and follow-up discussed, therapeutic rationale discussed, cost of medications and cost implications discussed, adherence and missed doses discussed, pharmacy contact information discussed, health goals discussed, monitoring medication discussed, over the counter products discussed, preventative care discussed, reminder to refill or brain picker medication discussed, self-monitoring discussed, timing of medications discussed, vaccination discussed, lifestyle modification education, referral needs discussed Drug Medication Management Summary Topics discussed: reviewed medication changes since last visit, medication safety precautions education provided, drug interaction education provided to patient, doses and administration discussed, safe handling, storage, and disposal discussed, possible adverse effects and management discussed, possible drug and prescription drug interactions discussed, lab monitoring and follow-up discussed, therapeutic rationale discussed, cost of medications and cost implications discussed, adherence and missed doses discussed, pharmacy contact information discussed, health goals discussed, monitoring medication discussed, over the counter products discussed, preventative care discussed, reminder to refill or brain picker medication discussed, self-monitoring discussed, timing of [...] frequency and method Handling, storage, and disposal of the medication Relevant lab data Patient verbalizes understanding and is able to read-back instructions on self-administration/injection, proper storage, drug stability, importance of adherence and management strategies, side effectavoidance and mitigation strategies, and interruptions in therapy: Yes Economic Assessment: Patient is agreeable to medication copay: yes Copay Amount: $0 Day Supply: 28 Date Needed: 12/30/18 is next injection date Copay assistance required: no Physical Assessment: Functional limitations identified: no Is patient a fall risk: no Cognitive limitations identified such as orientation, memory, reasoning or judgement: no Other: no Social Assessment: Does the patient have a primary life care planner? no Patient has emergency contact on file: Yes Does patient need referral to social welfare research worker: No Does patient need referral to advocacy group: No Physical and Home Health Assessment: Is the patient able to store their medication as directed? Yes Is the patient in a safe home environment? Yes Do you have a support network? Yes Reviewed potential home safety hazards: No Therapy Assessment: Appropriate Therapy: Yes Current Medication Dosing/Route/Frequency: Humira 40mg/0.4ml every 14 days Effective: yes Current GI-related Symptoms/Pain: no Recent GI Flaring: yes - about 1 month ago describes having some digestive issues for which she made an appointment. Since then started omeprazole and symptoms resolved. Recent Systemic Corticosteroid Use: no Relapsing/Remitting Factors: yes - keeping her bowels regular helps her Patient experienced change in condition that affects treatment: no Patient experienced side effects from your medication no Recent Infections: no Utilizing appropriate injection technique: yes Rotation of Injection Sites: Yes Room Temperature Medication at Time of Injection: Yes Patient Goals: Goals ??? DH Home Medication Compliance and Understanding Achieve and maintain control of Crohn's symptoms as assessed by specialist every 3 to 6 months or more Is the patient on track to achieve goals of therapy? yes Additional care/services needed: no Educational information or adherence tools provided: Yes Additional equipment/supplies required: no Care Plan Reviewed and Approved by both Pharmacist and Patient: Yes Did Care Plan Change? No Informed patient of specialty pharmacy services: Yes -Patient received welcome packet: Yes Date Received: 12/11/17 Delivery Method: mail -Patient returned signed Rights & Responsibilities: Yes [...] or harmful adverse reactions occur: Yes Patient Satisfaction with Therapy: yes - very satisfied Patient understands no changes to current drug regimen were made at the appointment and that [facility]summary located at top of note) for provider review and follow up. Yesy Jackson RPH 12/08/18 4:28 PM documented in this encounter Plan of Treatment Upcoming Encounters Date Type Department Care Team (Late st Contact Info) Description 07/18/2024 1:00 PM EDT TH Visit (TeleHealth) [place] [address] Malinda Christopher MD [facility] [place] [address] documented as of this encounter Goals Goal [...] on filedocumented in this encounter Care Teams Renal Case Manager Relationship Specialty Start Date End Date Valarie Phillips MD [address] [facility] [address] PCP - General General Internal Medicine 09/06/17 documented as of this encounter
--- OUTSIDE RECORDS SUMMARY | 2024-04-14 02:14 | XMS_ITS | Encounter Summary ---
Author Organization [facility] [place] [address] Care Team Providers Care Blade Aligner Name Role Phone Valarie Phillips MD Primary Care Provider [phone] Encounter Details Date Type Department Care Team (Late st Contact Info) Description 12/14/2018 Refill [place] [phone] Fide Donnelly, [facility] [facility] [place] [place] [address] Social History Tobacco Use Types Packs/Day Years [...] PM EDT TH Visit (TeleHealth) [place] [phone] Malinda Christopher MD [facility] [place] [address] documented as of this encounter Goals Goal [...] on filedocumented in this encounter Care Teams Blade Aligner Relationship Specialty Start Date End Date Valarie Phillips MD [address] [place] [address] PCP - General General Internal Medicine 09/06/17 documented as of this encounter
--- OUTSIDE RECORDS SUMMARY | 2024-04-14 02:14 | XMS_ITS | Encounter Summary ---
Author Organization [facility] [place] [address] Care Team Providers Care Publishing Systems Analyst Name Role Phone Valarie Phillips MD Primary Care Provider [phone] Reason for Visit * Reason Comments Medication Management Encounter Details Date Type Department Care Team (Late st Contact Info) Description 12/21/2018 Specialty [place] [address] Jennie Barkley RPH Social History Tobacco Use [...] Progress Notes * Jennie Barkley RPH - 12/21/2018 3:47 PM EDT Clinical Management Plan: Refill Specialty Pharmacy Consultation; Jennie Barkley Lacy Comprehensive Medication Management (CMM) Janice Malinda Denzel Ms. Janice Mahoney is a 58 [...] and Drug intolerance: Allergies Allergen Reactions ??? [place] ??? Polyethylene Glycol Analogues Hives Medication Reconciliation Discrepancies (compared to [facility] med list) -no New medications: yes - prilosec New medical conditions: no New allergies: no [...] review and follow up. Jennie Barkley RPH 12/21/18 3:48 PM documented in this encounter Plan of Treatment Upcoming Encounters Date Type Department Care Team (Late st Contact Info) Description 07/18/2024 1:00 PM EDT TH Visit (TeleHealth) [place] [address] Malinda Christopher MD [facility] [place] [address] documented as of this encounter Goals Goal Patient Goal Type Associated Problems Recent Progress Patient-Stated? Author Home Medication Compliance and Understanding Patient Facing Action Plan No Lakeisha Kent [facility] Note: Achieve and maintain control of Crohn's symptoms as assessed by specialist every 3 to 6 months or more documented as of this encounter Visit Diagnoses Not on filedocumented in this encounter Care Teams Publishing Systems Analyst Relationship Specialty Start Date End Date Valarie Phillips MD [address] [place] [address] PCP - General General Internal Medicine 09/06/17 documented as of this encounter
--- OUTSIDE RECORDS SUMMARY | 2024-04-14 02:14 | XMS_ITS | Encounter Summary ---
Author Organization [facility] [place] [address] Care Team Providers Care Harvest Crew Supervisor Name Role Phone Valarie Phillips MD Primary Care Provider [phone] Encounter Details Date Type Department Care Team (Late st Contact Info) Description 06/15/2018 Refill [place] [phone] Bee Tejeda [place] [address] Social History Tobacco Use Types Packs/Day Years [...] EDT TH Visit (TeleHealth) [place] [phone] Malinda Christopher MD [facility] [place] [address] documented as of this encounter Goals Goal Patient Goal Type Associated Problems Recent Progress Patient-Stated? Author [facility] Medication Compliance and Understanding Patient Facing Action Plan Lakeisha Matos, [facility] Note: Achieve and maintain control of Crohn's symptoms as assessed by specialist every 3 to 6 months or more documented as of this encounter Visit Diagnoses Not on filedocumented in this encounter Care Teams Harvest Crew Supervisor Relationship Specialty Start Date End Date Valarie Phillips MD [address] [place] [address] PCP - General General Internal Medicine 09/06/17 documented as of this encounter
--- OUTSIDE RECORDS SUMMARY | 2024-04-14 02:14 | XMS_ITS | Encounter Summary ---
[place] [address] Care Team Providers Care Stick Welder Name Role Phone Valarie Phillips MD Primary Care Provider [phone] Reason for Visit * Reason Comments Medication Management Encounter Details Date Type Department Care Team (Late st Contact Info) Description 11/23/2017 Specialty [place] [address] Lakeisha Kent [facility] Social History Tobacco Use Types Packs/Day Years [...] as of this encounter Progress Notes * Lakeisha Meyer RPH - 11/23/2017 2:04 PM EDT Specialty Pharmacy Consultation; Lakeisha Meyer Lacy Comprehensive Medication Management (CMM) Janice Mahoney Diagnosis: Crohn's Disease Therapy Start Date: 11/05/17 Ms. Janice Mahoney is a 57 y.o. (1960) female who was contacted in regard to specialty medication. Spoke with patient regarding ADALIMUMAB. A review of the medication therapy was performed. The medication was Refilled as scheduled, and all medication related questions and concerns were addressed. Janice's next injection will be due 12/03. The specialty pharmacy staff will follow up with the patient 7 days prior to next refill. Is the patient willing to proceed with the Clinical Assessment? Yes Summary and Recommendations: Janice was contacted for one month follow-up on Humira. She reports that she has already noticed great improvement with her symptoms and is quite pleased with this. She does not report any side effects at this time. Janice has had no issues with injections. She typically injects in the abdomen and has been rotating sites. Janice reports that she had her labs drawn last which all came back normal. She has been washing her hands regularly and denies any recent signs of infection. Janice will be receiving the yearly flu vaccine. We reviewed the medication in terms of infection control, risks of Humira, proper storage/handling, and monitoring. She did not have any further questions at this time. Follow up needed: yes, we will call her 7 days prior to next refill for refill reminder, and also in six months for pharmacist follow-up consultation Allergies and Drug intolerance: Allergies Allergen Reactions ??? [place] ??? Polyethylene Glycol Analogues Hives Special Dietary Requirements: no There is no height or weight on file to calculate BMI. Medication Reconciliation Discrepancies (compared to [facility] med list) -none Medication Adherence Patient reported X missed doses [...] medications: not needed Medication List: Current Outpatient Prescriptions Medication Sig Dispense Refill ??? Adalimumab 40 mg/0.8 mL Pen Injector Kit Inject 0.8 mLs subcutaneously every 14 days. 6 Pen 1 ??? acetaminophen (TYLENOL) 325 mg Tablet Take [...] x 1 day,5 mg x 1 day 19 tablet 0 ??? NIFEdipine, Bulk, Powder 0.2% ointment apply to anus two times daily 2.5 g 0 ??? lidocaine (XYLOCAINE) 2 % jelly Apply topically 4 times daily as needed. 30 mL 0 ??? lactobacillus rhamnosus, GG, (CULTURELLE) 10 billion cell Capsule Take 1 capsule by mouth daily. ??? DILTIAZEM HCL, BULK, MISC by Misc.(Non-Drug; Combo Route) route. Gel ??? ibuprofen (ADVIL;MOTRIN) 200 mg Tablet Take 200 mg by mouth. ??? calcium carbonate (TUMS) 200 mg calcium (500 mg) Tablet, Chewable Take by mouth. ??? acyclovir (ZOVIRAX) 200 mg Capsule ??? Guar Gum Packet Take by mouth. ??? docusate sodium (COLACE ORAL) Take by mouth. No current facility-administered medications for this visit. Most Recent Vitals: Ht Readings from Last 1 Encounters: 10/14/17 152.4 cm (5') Wt Readings from Last 3 Encounters: 10/14/17 58.7 kg (129 lb 6.4 oz) 09/15/17 59.4 kg (131 lb) 02/19/12 61.2 kg (135 lb) Temp Readings from Last 3 Encounters: 09/15/17 36.6 ??C (97.9 ??F) 02/19/12 36.3 ??C (97.3 ??F) BP Readings from Last 3 Encounters: 10/14/17 123/54 10/02/17 104/51 09/15/17 132/65 Pulse Readings from Last 3 Encounters: 10/14/17 78 10/02/17 97 09/15/17 83 Pertinent Lab values: Lab Results Component Value Date NA 140 10/14/2017 K 4.5 10/14/2017 CL 99 10/14/2017 CO2 25 10/14/2017 BUN 10 10/14/2017 CREATININE 0.64 (L) 10/14/2017 GLUCOSE 97 10/14/2017 CALCIUM 9.0 10/14/2017 Lab Results Component Value Date ALT 14 10/14/2017 AST 16 10/14/2017 ALKPHOS 98 10/14/2017 BILITOT 0.2 10/14/2017 ALBUMIN 3.8 10/14/2017 PROT 7.3 10/14/2017 Lab Results Component Value Date WBC 6.8 10/14/2017 HGB 11.6 (L) 10/14/2017 HCT 34.6 (L) 10/14/2017 MCV 90.1 10/14/2017 PLATELET 377 (H) 10/14/2017 No results found for: HA1C There is no immunization history on file for this patient. Assessment and Recommendations: Title Type of Medication Management: chronic disease management, targeted medication review Referred By: provider Recipient: beneficiary Provider: plan sponsor pharmacist Visit Type: [facility] Follow-up Method of Contact: by telephone Cognitive Ability: good Drug Interactions Provided the patient with educational [...] preventative care discussed, reminder to refill or crop picker medication discussed, self-monitoring discussed, timing of medications discussed, vaccination discussed, lifestyle modification education Drug Medication Management Summary Topics discussed: reviewed [...] preventative care discussed, reminder to refill or crop picker medication discussed, self-monitoring discussed, timing of medications discussed, vaccination discussed, lifestyle modification education Time spent: 16-30 min Treatment Outcomes No data found. Reviewed in detail with patient: Dose appropriateness [...] disposal of the medication Relevant lab data Physical Assessment: Functional limitations identified: no Cognitive limitations identified: no Concern regarding orientation/memory: no Concern with reasoning/judgement: no Is patient a fall risk: no Other needed information: no Social Assessment: Does the patient have a primary manager primary care? no Patient has emergency contact on file: Yes Physical and Home Health Assessment: Is the patient able to store their medication as directed? Yes Is the patient in a safe home environment? Yes Do you have a support network? Yes Reviewed potential home safety hazards: Yes Economic Assessment: Patient is agreeable to medication copay: Yes Copay Amount: $0 Day Supply: Date Needed: 12/03 Copay assistance required: no Therapy Assessment: Appropriate Therapy: Yes Current Medication Dosing/Route/Frequency: Humira 40mg/0.8ml pen inject one pen subcutaneously every 14 days Effective: yes - patient notices great improvement in symptoms already Patient experienced change in condition that affects treatment: no Are you experiencing any side effects from your medication? no Is the patient on track to achieve goals of therapy? Yes Goals ??? DH Home Medication Compliance and Understanding Achieve and maintain control of Crohn's symptoms. Additional care/services needed: no Educational information or adherence tools provided: Yes Additional equipment/supplies required: no Plan of Care Reviewed and Approved by Patient: Yes Did Care Plan Change? No Informed patient of specialty pharmacy services: Yes -Patient received welcome packet: Yes Date Received: welcome packet sent with Rx on 11/04 -Patient returned signed Rights & Responsibiliites: No Date Received: this was re-sent to the patient on 11/24 -Patient is aware a licensed pharmacist is [...] Yes Patient Satisfaction with Therapy: yes - Patient is pleased with how the Humira has helped her symptoms so far and pleased with the lack of adverse effects. Pt understands no changes to current drug regimen were made at the appointment and that [facility] is providing recommendations (summary located at top of note) for provider review and follow up. Lakeisha Meyer RPH 11/23/17 2:05 PM documented in this encounter Plan of Treatment Upcoming Encounters Date Type Department Care Team (Late st Contact Info) Description 07/18/2024 1:00 PM EDT TH Visit (TeleHealth) [place] [address] Malinda Christopher MD [facility] [place] [address] documented as of this encounter Goals Goal Patient Goal Type Associated Problems Recent Progress Patient-Stated? Author [facility] Medication Compliance and Understanding Patient Facing Action Plan No Lakeisha Kent RPH Note: Achieve and maintain control of Crohn's symptoms as assessed by specialist every 3 to 6 months or more documented as of this encounter Visit Diagnoses Not on filedocumented in this encounter Care Teams Stick Welder Relationship Specialty Start Date End Date Valarie Phillips MD [address] [place] [address] PCP - General General Internal Medicine 09/06/17 documented as of this encounter
--- OUTSIDE RECORDS SUMMARY | 2024-04-14 02:14 | XMS_ITS | Encounter Summary ---
Author Organization Formerly [facility] [place] [address] Care Team Providers Care Optometrist President/Practice Owner Name Role Phone Valarie Phillips MD Primary Care Provider [phone] Encounter Details Date Type Department Care Team (Late st Contact Info) Description 11/11/2018 Telephone [place] [phone] Yarelis Milian Social History Tobacco Use Types [...] * Telephone Encounter - Yarelis Milian - 11/11/2018 3:22 PM EDT Pt returned Miriam call. Let her know she was at lunch. Let her know I would asked Miriam to give her a call back after 4pm at [phone] documented in this encounter Plan of Treatment Upcoming Encounters Date Type Department Care Team (Late st Contact Info) Description 07/18/2024 1:00 PM EDT TH Visit (TeleHealth) [place] [phone] Malinda Christopher MD [facility] [place] [address] documented as of this encounter Goals Goal [...] on filedocumented in this encounter Care Teams Optometrist President/Practice Owner Relationship Specialty Start Date End Date Valarie Phillips MD [address] [place] [address] PCP - General General Internal Medicine 09/06/17 documented as of this encounter
--- OUTSIDE RECORDS SUMMARY | 2024-04-14 02:14 | XMS_ITS | Encounter Summary ---
Author Organization Formerly [facility] [place] [address] Care Team Providers Care Webmethods Consultant Name Role Phone Valarie Phillips MD Primary Care Provider [phone] Reason for Visit * Reason Comments Follow-up Encounter Details Date Type Department Care Team (Late st Contact Info) Description 08/20/2018 1:00 PM EDT Office Visit Gastroenterology at [facility] [place] [phone] Bee Tejeda MD [facility] [place] [address] Crohn's disease of both small and large intestine with rectal bleeding; Crohn's disease of colon with complication; Crohn's disease of large intestine without complication Social History Tobacco Use Types Packs/Day [...] Sign Reading Time Taken Comments Blood Pressure 132/74 08/20/2018 12:29 PM EDT Pulse 66 08/20/2018 12:29 PM EDT Temperature - - Respiratory Rate - - Oxygen Saturation - - Inhaled Oxygen Concentration - - Weight 58.5 kg (129 lb) 08/20/2018 12:29 PM EDT Height 152.4 cm (5') 08/20/2018 12:29 PM EDT Body Mass Index 25.19 08/20/2018 12:29 PM EDT documented in this encounter Progress Notes * Bee Tejeda MD - 08/20/2018 1:00 PM EDT [facility] Division of Gastroenterology and Hepatology Outpatient Follow up Reason for Visit: ?Crohn's disease Referred by Valarie Phillips ID: Janice Mahoney is a 58 y.o. female with PMH significant for hemorrhoid surgery who is seen in follow up for Crohn's disease. Interval History: Overall, she is feeling good. Her joint pain has been up and down. She is moving her bowels every day. She has been taking magnesium citrate has been helpful. She tried Benefiber without much success. She has not had any bleeding for 3-4 times. She does have some discomfort after bowel movement, butnot like when I first met you. She has been trying to swim more. She does have some injection site redness. Review of Systems: Constitutional: no weight loss HEENT: No visual changes, URI symptoms Cardio: No chest pain Resp: no SOB Hem/Lymph: no new lumps or bumps on body GI: see HPI : no dysuria Skin: no new rashes Musculoskeletal: longstanding joint pains Neuro: no new numbness, weakness in extremities All other systems negative except as above in HPI Patient Active Problem List Diagnosis ??? Crohn's disease of colon with complication Crohn's Disease: ?? Location: Colonic and mid small bowel, Behavior: Inflammatory perianal disease in form of skin tags ?? Symptoms: worsening hemorrhoids April 2017 undergoes excisional hemorrhoidectomy that did not heal ?? 10/02/17: Colonoscopy ([facility] [place] Large perianal inflamed skin tags ??found on [...] 01/2018 Shingrix ?? 01/2018 Pneumococcal (presumed Pneumovax) ??? Anal pain ??? Clotting disorder Protein C deficiency ??? Diverticulitis of large intestine without perforation or abscess without bleeding ??? Gallstones Past Medical History: Diagnosis Date ??? Diverticulitis ??? Hemorrhagic disorder protein C deficiency Past Surgical History: Procedure Laterality Date ??? CHOLECYSTECTOMY ??? HEMORRHOID SURGERY ??? HYSTERECTOMY ??? PRO COLONOSCOPY, BIOPSY N/A 10/02/2017 COLONOSCOPY FLEXIBLE, WITH BX (WRVU 3.66) performed by Moe Smith MD at [facility] ENDOSCOPY ??? PRO COLONOSCOPY, DIAGNOSTIC 02/19/2012 COLONOSCOPY, DIAGNOSTIC performed by Nathanael Pyle MD at [facility] ENDOSCOPY Social History: reports that she has quit smoking. She has never used smokeless tobacco. She reports that she drinks about 3.0 oz of alcohol per week. Family History: family history includes Cancer in her maternal grandmother and paternal grandmother. Current Outpatient Medications Medication Sig Dispense Refill ??? lidocaine (XYLOCAINE) 2 % jelly Apply topically 4 times daily as needed. 30 mL 0 ??? adalimumab 40 mg/0.4 mL Pen Injector Kit Inject 40 mg subcutaneously every 14 days. 3 kit 1 ??? calcium carbonate (TUMS) 200 mg calcium (500 mg) Tablet, Chewable Take 1 tablet by mouth 4 times daily as needed. ??? PROAIR HFA 90 mcg/actuation HFA Aerosol Inhaler Inhale 2 Inhalation into the lungs every 4 hours as needed. ??? meloxicam (MOBIC) 7.5 mg Tablet Take 1 tablet by mouth 2 times daily as needed. ??? acetaminophen (TYLENOL) 325 mg Tablet Take 325 mg by mouth 2 times daily as needed for Pain. ??? magnesium citrate Solution Take by mouth. Indications: Patient states she takes one capful every other day. ??? lactobacillus rhamnosus, GG, (CULTURELLE) 10 billion cell Capsule Take 1 capsule by mouth daily. ??? Guar Gum Packet Take by mouth. ??? docusate sodium (COLACE ORAL) Take by mouth. ??? predniSONE (DELTASONE) 5 mg Tablet 40 mg x 3 days, 30 mg x 1 day, 20 mg x 1 day, 10 mg x 1 day,5 mg x 1 day (Patient not taking: Reported on 12/09/2017) 19 tablet 0 ??? NIFEdipine, Bulk, Powder 0.2% ointment apply to anus two times daily (Patient not taking: Reported on 12/09/2017) 2.5 g 0 ??? DILTIAZEM HCL, BULK, MISC by Misc.(Non-Drug; Combo Route) route. Gel ??? acyclovir (ZOVIRAX) 200 mg Capsule No current facility-administered medications for this visit. Allergies Allergen Reactions ??? [place] ??? Polyethylene Glycol Analogues Hives Physical Examination: BP 132/74 Pulse 66 Ht 152.4 cm (5') Wt 58.5 kg (129 lb) BMI 25.19 kg/m?? General:Pleasant, cooperative, NAD HEENT: NC/AT, MMM Eyes: anicteric sclera CHEST: CTAB ABD: NABS, tenderness with deep palpation over LLQ Psych: Normal mood Labs: Reviewed in EDH/Scan Docs Lab Results Component Value Date WBC 4.6 04/28/2018 HGB 12.4 04/28/2018 HCT 37.9 04/28/2018 MCV 92.4 04/28/2018 PLATELET 275 04/28/2018 Chemistry Component Value Date/Time NA 140 10/14/2017 0916 K 4.5 10/14/2017 0916 CL 99 10/14/2017 0916 CO2 25 10/14/2017 0916 BUN 10 10/14/2017 0916 CREATININE 0.64 (L) 10/14/2017 0916 Component Value Date/Time CALCIUM 9.0 10/14/2017 0916 ALKPHOS 63 04/28/2018 0858 AST 23 04/28/2018 0858 ALT 24 04/28/2018 0858 BILITOT 0.3 04/28/2018 0858 Lab Results Component Value Date ALT 24 04/28/2018 AST 23 04/28/2018 ALKPHOS 63 04/28/2018 BILITOT 0.3 04/28/2018 Additional Testing: Reviewed available labs, imaging and endoscopy results in EDH/CIS as well as Scan Docs tab. IMPRESSION: Janice Mahoney is a 58 y.o. with PMH significant for hemorrhoidectomy who is seen in follow up for ileocolonic Crohn's. Janice is currently on Humira 40 mg every other week. She is doing much better than when she first established care here. Her left sided abdominal pain and perianal pain are much more tolerable sincebeing on Humira. Reviewed her MRE that showed that her small bowel disease is not present on the MRE, but there is known narrowing in her colon that was also seen on colonoscopy. Discussed when to doanother colonoscopy. Considered doing colonoscopy now to see if the inflammation improved, but would like to wait until 2019 given that she just had MRE that showed improvement in disease. RECOMMENDATIONS: # Labs every 4 months # Continue Humira 40 mg every other week. # Continue Mag citrate as needed # Prevnar due in Jan 2019 Follow up in 6 months. 15 minutes of this 30 minute [id number] encounter were spent counseling the patient in medical issues described above. Bee Te[place] [address] P: [phone] F: [phone] documented in this encounter Plan of Treatment Upcoming Encounters Date Type Department Care Team (Late st Contact Info) Description 07/18/2024 1:00 PM EDT TH Visit (TeleHealth) [place] [address] Malinda Christopher MD [facility] [place] [address] Scheduled Orders Name Type Priority Associated Diagnoses Orde r Schedule Hemogram Lab Routine Crohn's disease of both small and large intestine with rectal bleeding Expected: 08/25/2018, Expires: 08/21/2019 documented as of this encounter Goals Goal Patient Goal Type Associated Problems Recent Progress Patient-Stated? Author [facility] Medication Compliance and Understanding Patient Facing Action Plan Lakeisha Matos, [facility] Note: Achieve and maintain control of Crohn's symptoms as assessed by specialist every 3 to 6 months or more documented as of this encounter Procedures Procedure Name Priority Date/Time Associated Diagnosis Comments CRP, ACUTE INFLAMMATION Routine 08/20/2018 1:36 PM EDT Crohn's disease of large intestine without complication HEMOGRAM Routine 08/20/2018 1:36 PM EDT Crohn's disease of both small and large intestine with rectal bleeding DIFFERENTIAL, AUTOMATED Routine 08/20/2018 1:36 PM EDT Crohn's disease of large intestine without complication CBC (WITH DIFF) Routine 08/20/2018 1:36 PM EDT Crohn's disease of large intestine without complication HEPATIC FUNCTION PANEL Routine 08/20/2018 1:36 PM EDT Crohn's disease of both small and large intestine with rectal bleeding documented in this encounter Results * Differential, Automated (08/20/2018 1:36 PM EDT) Neutrophil % 47.6 % [facility] Neutrophil Absolute 2.48 1.70 - 6.10 x10(3)/[facility] Lymph % 40.1 % [facility] Lymphocytes Abs 2.1 0.9 - 3.2 x10(3)/[facility] Monocyte % 9.0 % [facility] Monocyte Abs 0.5 0.3 - 0.9 x10(3)/[facility] Eos % 2.1 % [facility] Eosinophils Abs 0.1 0.0 - 0.4 x10(3)/[facility] Basophil % 0.8 % [facility] Baso Absolute 0.0 0.0 - 0.1 x10(3)/[facility] Immature Gran % 0.40 % [facility] Comment: Immature granulocytes(IG's)percentage and absolute count will include metamyelocytes, myelocytes, and promyelocytes. Blood smears from CBCs yielding IG's will be scanned manually for concordance. If this scan disagrees with the automated IG or if promyelocytes are noted, a manual differential will be performed. Immature Gran Absolute 0.02 0.00 - 0.04 x10(3)/[facility] Blood specimen (specimen) 08/20/2018 1:36 PM EDT 08/20/2018 1:47 PM EDT Narrative Resulting Agency Comment Spec In Lab Bee Tejeda MD HEMATOLOGY ORDER RAFFI Performing Organization Address City/[facility]/ZIP Co de Phone Number [facility] [place] [address] * CRP, acute inflammation (08/20/2018 1:36 PM EDT) C-Reactive Protein 0.7 <=4.9 mg/L [facility] Blood specimen (specimen) 08/20/2018 1:36 PM EDT 08/20/2018 1:47 PM EDT Narrative Resulting Agency Comment Spec In Lab Bee Tejeda MD CHEMISTRY ORDERA BLES Performing Organization Address [facility]/ZIP Co de Phone Number [facility] [place] [address] * Hemogram (08/20/2018 1:36 PM EDT) White Blood Cell 5.2 4.0 - 9.5 x10(3)/[facility] Red Blood Cell 4.20 4.00 - 5.21 x10(6)/[facility] Hemoglobin 12.6 11.7 - 15.5 gm/dL [facility] Hematocrit 39.6 35.7 - 45.8 % [facility] Mean Cell Volume 94.3 82.6 - 94.4 fL [facility] Mean Cell Hemoglobin 30.0 27.1 - 32.0 pg [facility] Mean Cell Hemoglobin Concentration 31.8 31.7 - 35.0 gm/dL [facility] Platelet 257 145 - 357 x10(3)/[facility] RDW Standard Deviation 42.9 37.0 - 46.0 fL [facility] RDW coefficient of variation 12.4 11.5 - 14.1 % [facility] Mean Platelet Volume 9.0 7.6 - 12.9 fL [facility] NRBC% auto 0.0 % [facility] NRBC Absolute 0.000 0.000 - 0.000 x10(3)/[facility] Blood specimen (specimen) 08/20/2018 1:36 PM EDT 08/20/2018 1:47 PM EDT Narrative Resulting Agency Comment Spec In Lab Bee Tejeda MD HEMATOLOGY ORDER RAFFI [facility] [place] [address] * Hepatic Function Panel (08/20/2018 1:36 PM EDT) Protein, Total 7.4 6.1 - 8.0 gm/dL [facility] Albumin 4.7 3.2 - 5.2 gm/dL [facility] Aspartate Aminotransferase 24 0 - 30 unit/L [facility] Alanine Aminotransferase 24 0 - 30 unit/L [facility] Alkaline Phosphatase 73 40 - 104 unit/L [facility] Bilirubin, Total 0.3 0.2 - 1.3 mg/dL [facility] Bilirubin, Direct 0.1 0.0 - 0.3 mg/dL [facility] Blood specimen (specimen) 08/20/2018 1:36 PM EDT 08/20/2018 1:47 PM EDT Narrative Resulting Agency Comment Spec In Lab Bee Malinda Tejeda MD [place] [address] documented in this encounter Visit Diagnoses Diagnosis Crohn's disease of both small and large intestine with rectal bleeding Regional enteritis of small intestine with large intestine Crohn's disease of colon with complication Crohn's disease of large intestine without complication Regional enteritis of large intestine documented in this encounter Care Teams Webmethods Consultant Relationship Specialty Start Date End Date Valarie Phillips MD [address] [place] [address] PCP - General General Internal Medicine 09/06/17 documented as of this encounter
--- OUTSIDE RECORDS SUMMARY | 2024-04-14 02:14 | XMS_ITS | Encounter Summary ---
Author Organization [facility] [place] [address] Care Team Providers Care Visual Basic Programmer Name Role Phone Valarie Phillips MD Primary Care Provider [phone] Reason for Visit * Reason Comments Medication Management Encounter Details Date Type Department Care Team (Late st Contact Info) Description 10/01/2018 Specialty Pharmacy Pharmacy at [facility] [place] [address] Isma Underwood [facility] Social History Tobacco Use Types Packs/Day [...] as of this encounter Progress Notes * Isma Underwood RPH - 10/01/2018 4:12 PM EDT Clinical Management Plan: Refill Specialty Pharmacy Consultation; Isma Underwood L[facility] Comprehensive Medication Management (CMM) Janice Malinda [...] Care Plan: no Assessment and Recommendations: Title Cognitive Ability: good Cognitive Impairment Status Verified this Year: no Allergies and Drug intolerance: Allergies Allergen Reactions ??? [place] ??? Polyethylene Glycol Analogues Hives Medication Reconciliation Discrepancies (compared to [facility] med list) - none New medications: [...] were made at the appointment and that [facility] is providing recommendations (summary located at top of note) for provider review and follow up. Isma Underwood RPH 10/01/18 4:12 PM documented in this encounter Plan of Treatment Upcoming Encounters Date Type Department Care Team (Late st Contact Info) Description 07/18/2024 1:00 PM EDT TH Visit (TeleHealth) [place] [address] Malinda Christopher MD [facility] [place] [address] documented as of this encounter Goals Goal Patient Goal Type Associated Problems Recent Progress Patient-Stated? Author [facility] Medication Compliance and Understanding Patient Facing Action Plan Lakeisha Matos [facility] Note: Achieve and maintain control of Crohn's symptoms as assessed by specialist every 3 to 6 months or more documented as of this encounter Visit Diagnoses Not on filedocumented in this encounter Care Teams Visual Basic Programmer Relationship Specialty Start Date End Date Valarie Phillips MD [address] [place] [address] PCP - General General Internal Medicine 09/06/17 documented as of this encounter
--- OUTSIDE RECORDS SUMMARY | 2024-04-14 02:14 | XMS_ITS | Encounter Summary ---
Author Organization [facility] [place] [address] Care Team Providers Care Bank Guard Name Role Phone Valarie Phillips MD Primary Care Provider [phone] Reason for Visit * Reason Comments Medication Management Encounter Details Date Type Department Care Team (Late st Contact Info) Description 03/16/2018 Specialty Pharmacy Pharmacy at [facility] [place] [address] Lakeisha Kent [facility] Social History Tobacco [...] this encounter Progress Notes * Lakeisha Meyer [facility] - 03/16/2018 9:14 AM EST Clinical Management Plan: Refill of Humira Specialty Pharmacy Consultation; Lakeisha Meyer [facility] Comprehensive Medication Management (CMM) Janice Mahoney is a 58 y.o. (1960) female who was contacted in regard to a specialty medication refill reminder. Spoke with patient regarding Humira. A review of the medication therapy was performed. The medication was Refilled as scheduled, and all medication related questions and concerns were addressed. Janice was able to use the Humira coupon card and further assistance through Humira one time credit card so that her balance was $0. She needs this refill for the injection on 03/25. The specialty pharmacy staff will follow up with the patient 5-7 days prior to next refill. Was a change made to the Care Plan: no Assessment and Recommendations: Title Type of Medication Management: chronic disease management, targeted medication review Referred By: provider Recipient: beneficiary Provider: plan sponsor pharmacist Visit Type: [facility] Follow-up Method of Contact: by telephone Cognitive Ability: good Cognitive Impairment Status Verified this Year: no Allergies and Drug intolerance: Allergies Allergen Reactions ??? [place] ??? Polyethylene Glycol Analogues Hives Medication Reconciliation Discrepancies (compared to [facility] med list) -none New medications: no New [...] at the appointment and that [facility] is providing recommendations (summary located at top of note) for provider review and follow up. Lakeisha Meyer RPH 03/16/18 9:15 AM documented in this encounter Plan of Treatment Upcoming Encounters Date Type Department Care Team (Late st Contact Info) Description 07/18/2024 1:00 PM EDT TH Visit (TeleHealth) [place] [address] Malinda Christopher MD [facility] [place] [address] documented as of this encounter Goals Goal Patient Goal Type Associated Problems Recent Progress Patient-Stated? Author [facility] Medication Compliance and Understanding Patient Facing Action Plan Lakeisha Matos RPH Note: Achieve and maintain control of Crohn's symptoms as assessed by specialist every 3 to 6 months or more documented as of this encounter Visit Diagnoses Not on filedocumented in this encounter Care Teams Bank Guard Relationship Specialty Start Date End Date Valarie Phillips MD [address] [place] [address] PCP - General General Internal Medicine 09/06/17 documented as of this encounter
--- OUTSIDE RECORDS SUMMARY | 2024-04-14 02:14 | XMS_ITS | Encounter Summary ---
Author Organization [facility] [place] [address] Care Team Providers Care Manager Medical Name Role Phone Valarie Phillips MD Primary Care Provider [phone] Reason for Visit * Reason Comments Medication Management Encounter Details Date Type Department Care Team (Late st Contact Info) Description 01/21/2018 Specialty Pharmacy Pharmacy at [facility] [place] [address] Isma Underwood Lacy Social History Tobacco Use Types Packs/Day [...] Progress Notes * Isma Underwood RPH - 01/21/2018 8:49 AM EST Clinical Management Plan: Refill Specialty Pharmacy Consultation; Isma Underwood RPH Comprehensive Medication Management (CMM) Janice Malinda Denzel Ms. Janice Mahoney is a 57 y.o. [...] Assessment and Recommendations: Title Cognitive Ability: good Allergies and Drug intolerance: Allergies Allergen Reactions ??? [place] ??? Polyethylene Glycol Analogues Hives Medication Reconciliation Discrepancies (compared to [facility] med list) - none New medications: no New medical conditions: no New allergies: no Adherence: Medication Adherence Patient reported X missed doses in the last month: 0 Any gaps in refill history greater than 2 weeks in the last 3 months: no Demonstrates understanding of importance of adherence: yes Informant: patient Reliability of informant: reliable Provider-estimated medication adherence level: variable Reasons for non-adherence: no problems identified Adherence [...] review and follow up. Isma Underwood RPH 01/21/18 8:50 AM documented in this encounter Plan of Treatment Upcoming Encounters Date Type Department Care Team (Late st Contact Info) Description 07/18/2024 1:00 PM EDT TH Visit (TeleHealth) [place] [address] Malinda Christopher MD [facility] [place] [address] documented as of this encounter Goals Goal Patient Goal Type Associated Problems Recent Progress Patient-Stated? Author [facility] Medication Compliance and Understanding Patient Facing Action Plan Lakeisha Matos [facility] Note: Achieve and maintain control of Crohn's symptoms as assessed by specialist every 3 to 6 months or more documented as of this encounter Visit Diagnoses Not on filedocumented in this encounter Care Teams Manager Medical Relationship Specialty Start Date End Date Valarie Phillips MD [address] [place] [address] PCP - General General Internal Medicine 09/06/17 documented as of this encounter
--- OUTSIDE RECORDS SUMMARY | 2024-04-14 02:14 | XMS_ITS | Encounter Summary ---
Author Organization [facility] [place] [address] Care Team Providers Care Freezer Assistant Name Role Phone Valarie Phillips MD Primary Care Provider [phone] Encounter Details Date Type Department Care Team (Late st Contact Info) Description 11/05/2018 9:00 AM EDT Office Visit [place] [address] Fide Donnelly APRN [facility] [place] [address] Crohn's disease of both small and large [...] Sign Reading Time Taken Comments Blood Pressure 117/61 11/05/2018 9:07 AM EDT Pulse 91 11/05/2018 9:07 AM EDT Temperature - - Respiratory Rate - - Oxygen Saturation - - Inhaled Oxygen Concentration - - Weight 62.3 kg (137 lb 6.4 oz) 11/05/2018 9:07 A M EDT Height 152.4 cm (5') 11/05/2018 9:07 AM EDT Body Mass Index 26.83 11/05/2018 9:07 AM EDT documented in this encounter Progress Notes * Fide Donnelly, ROMULO - 11/05/2018 9:00 AM EDT [facility] Division of Gastroenterology and Hepatology Outpatient Follow up ?? Reason for Visit: Crohn's disease ?? Referred by Valarie Phillips ?? ID: Janice Mahoney is a 58 y.o. female with PMH significant for hemorrhoid surgery who is seen in follow up for Crohn's disease. ?? Interval History: Janice who sees Dr. Tejeda before she left our institution presents for 2 issues. 1. A couple of weeks ago, she started having stomach issues, felt raw inside, feels bloated and also her throat feels sore, raw and difficulty/pain swallowing her food. She took Pepcid with no effect. She contacted us and we recommended a trial of Prilosec OTC once a day until seen in clinic. She already started feeling better although not completely better by the time she contacted us. She did try the Prilosec OTC once daily ( 11/01)and overall symptoms are better. Able to tolerate foods a lot better with just very minimal discomfort. Stomach is not as sore/raw feeling. She denies heartburn nor acid reflux. Current sx's seems to have triggered after eating watermelon. A couple of years ago, she had very similar sx's that she attributed after eating yakutat. She had many food intolerances and OTC meds like cough meds and have been avoiding them. 2. She reported that her anal sphincter does not seem to work as well. Since her hemorrhoidectomy, has been having anal pain with defecation. She notes that there is a spot that is tender that gets aggravated with BM on and off. She needs to have her stool loose in order to have an easy BM. If formed or hard stool then she would strain a lot to pass her stools. She avoided Miralax as she thought that she maybe allergic to the polyethylene glycol like her other OTC meds that she is allergic to. She has never tried Miralax. She was advised to take Magnesium citrate but she really does not like the taste. She takes Mg citrate 4 oz every other night to have loose stool. Then would have Bm 3-4x/day and loose which is better, ease in passing stool. If not, she would have trouble passing stool with a lot of straining. She also takes benefiber daily but at times could make her stool very hard and caused more discomfort. Overall her perianal pain is a lot better, 90% better, since she started Humira but hoping that shecould be better, Review of Systems: as above, the rests negative. ?? Patient Active Problem List ?? Diagnosis ??? Crohn's disease of colon with complication ? Crohn's Disease: ?? Location:??Colonic??and mid small bowel,??Behavior: Inflammatory?perianal disease in form of skin tags ?? Symptoms: worsening hemorrhoids April 2017 undergoes excisional hemorrhoidectomy that did not heal ?? 10/02/17: [place] Large perianal inflamed skin tags ??found on [...] perforation or abscess without bleeding ??? Gallstones ?? . Past Medical History: Diagnosis Date ??? Diverticulitis ??? Hemorrhagic disorder protein C deficiency Past Surgical History: Procedure Laterality Date ??? CHOLECYSTECTOMY ??? HEMORRHOID SURGERY ??? HYSTERECTOMY ??? PRO COLONOSCOPY, BIOPSY N/A 10/02/2017 COLONOSCOPY FLEXIBLE, WITH BX (WRVU 3.66) performed by Moe Smith MD at [facility] ??? PRO COLONOSCOPY, DIAGNOSTIC 02/19/2012 COLONOSCOPY, DIAGNOSTIC performed by Nathanael Pyle MD at [facility] Social History Socioeconomic History ??? Marital status: Spouse name: Not on file ??? Number of children: Not on file ??? Years of education: Not on file ??? Highest education level: Not on file Occupational History ??? Not on file Social Needs ??? Financial resource strain: Not on file ??? Food insecurity: Worry: Not on file Inability: Not on file ??? Transportation needs: Medical: Not on file Non-medical: Not on file Tobacco Use ??? Smoking status: Former Smoker ??? Smokeless tobacco: Never Used Substance and Sexual Activity ??? Alcohol use: Yes Alcohol/week: 5.0 standard drinks Types: 5 Glasses of wine per week ??? Drug use: Not on file ??? Sexual activity: Yes Partners: Male Lifestyle ??? Physical activity: Days per week: Not on file Minutes per session: Not on file ??? Stress: Not on file Relationships ??? Social connections: Talks on phone: Not on file Gets together: Not on file Attends druze service: Not on file Active member of club or organization: Not on file Attends meetings of clubs or organizations: Not on file Relationship status: Not on file ??? Intimate partner violence: Fear of current or ex partner: Not on file Emotionally abused: Not on file Physically abused: Not on file Forced sexual activity: Not on file Other Topics Concern ??? Not on file Social History Narrative ??? Not on file Social History: reports that she has quit smoking. She has never used smokeless tobacco. She reports that she drinks about 3.0 oz of alcohol per week. ?? Family History: family history includes Cancer in her maternal grandmother and paternal grandmother. Family History Problem Relation Age of Onset ??? Cancer Maternal Grandmother colon ca, uterine ca ??? Cancer Paternal Grandmother colonc ca Outpatient Medications Prior to Visit Medication Sig Dispense Refill ??? omeprazole (PRILOSEC) 10 mg Capsule, Delayed Release(E.C.) Take 10 mg by mouth daily. ??? lidocaine (XYLOCAINE) [...] takes one capful every other day. ??? DILTIAZEM HCL, BULK, MISC by [facility].(Non-Drug; Combo Route) route. Gel ??? acyclovir (ZOVIRAX) 200 mg Capsule ??? meloxicam (MOBIC) 7.5 mg Tablet Take [...] mouth. No facility-administered medications prior to visit. Allergies Allergen Reactions ??? [place] ??? Polyethylene Glycol Analogues Hives Vitals: 11/05/18 0907 BP: 117/61 BP Location (NBP): Right arm Patient Position: Sitting BP Cuff Sizes: Adult (25-34 cm) Pulse: 91 Weight: 62.3 kg (137 lb 6.4 oz) Height: 152.4 cm (5') Physical Exam Constitutional: She appears well-developed and well-nourished. No distress. Cardiovascular: Normal rate and regular rhythm. Pulmonary/Chest: Effort normal and breath sounds normal. No respiratory distress. Abdominal: Soft. Bowel sounds are normal. She exhibits no distension and no mass. There is tenderness (mild tendenress on LLQ>RLQ on palpation. Otherwise, soft and nontender). There is no rebound and no guarding. Neurological: She is alert. Skin: Skin is warm and dry. Additional Testing: Reviewed available labs, imaging and endoscopy results in [facility] as well as Scan Docs tab. ?? IMPRESSION: Janice Mahoney is a 58 y.o. with PMH significant for hemorrhoidectomy with ileocolonic Crohn's disease presents for two issues: 1. stomach , esophageal discomfort( raw sensation) with dysphagia/odynophagia the past 2 weeks. DDX: GERD vs eosinophilic esophagitis. We started Prilosec OTC once daily and her sxs are improving. Given that she is feeling better, we will continue her Prilosec for now . I told her that if with persistent dysphagia or odynophagia she would contact us, and we will get EGD for further evaluation. She agreed on this. Otherwise, we could add EGD with her [place] due 2019. 2. Perianal pain with difficulty passing stools unless it is loose. Janice is currently on Humira 40 mg every other week. Her perianal pain overall is a lot better since she started Humira. Her main concern is about her sphincter muscle that may not be working as well. I told her that we could get an anal manometry to r/o pelvic floor dysfunction and then will consider pelvic floor rehab. In the meantime, we discuss avoiding constipation. She takes Mg Citrate to avoid hard stool but I told her that this is not an optimal medication for oysterman or chronic use due to potential side effects. She said that she could not take dulcolax either. Colace not as effective. Fiber supplement cause more constipation. It is better to use Miralax given it is safe for shelter use. However, she is very reluctant given that she thinks she is allergic to the polyethylene glycol despite that she has not tried it yet. I recommend that she may need to see an cast iron dipper to help with her different allergy issues with different fruits and OTC meds. She would start with her PCP for this. ?? RECOMMENDATIONS: - Labs today( CBC, CMP, ESR, CRP) then lab surveillance ( CBC, LFTS, CRP) Q 4 months - Stool for calprotectin - Continue Humira 40 mg every other week. - Continue Prilosec OTC 20 mg once daily - Continue Mag citrate as needed for now. If able to take Miralax will try Miralax instead and adjust dose to effect - Anal manometry and consider PT for pelvic floor rehab if needed. - She would contact her PCP to discuss multiple allergy , including Miralax and consider allergyreferral - Colonoscopy due 2019 and will add EGD. However, we may need to do EGD sooner if she has persistent dysphagia/ or odynophagia - Prevnar due in Jan 2019 ( Dr. Tejeda's note) - She would f/u with PCP and discuss Allergy consult. ?? F/U with me in 3 months then will have her see Dr. Christopher ? documented in this encounter Plan of Treatment Upcoming Encounters Date Type Department Care Team (Late st Contact Info) Description 07/18/2024 1:00 PM EDT TH Visit (TeleHealth) [place] [address] Malinda Christopher MD [facility] [place] [address] documented as of this encounter Goals Goal Patient Goal Type Associated Problems Recent Progress Patient-Stated? Author [facility] Medication Compliance and Understanding Patient Facing Action Plan Lakeisha Matos, [facility] Note: Achieve and maintain control of Crohn's symptoms as assessed by specialist every 3 to 6 months or more documented as of this encounter Procedures Procedure Name Priority Date/Time Associated Diagnosis Comments HC C-REACTIVE PROTEIN Routine 11/05/2018 10:49 AM EDT Crohn's disease of both small and large intestine with rectal bleeding HEMOGRAM Routine 11/05/2018 10:49 AM EDT Crohn's disease of both small and large intestine with rectal bleeding DIFFERENTIAL, AUTOMATED Routine 11/05/2018 10:49 AM EDT Crohn's disease of both small and large intestine with rectal bleeding HC ESR-SEDIMENTATION RATE, BLOOD Routine 11/05/2018 10:49 AM EDT Crohn's disease of both small and large intestine with rectal bleeding HC CBC,PLT & AUTO DIFF Routine 9 10:49 AM EDT Crohn's disease of both small and large intestine with rectal bleeding COMPREHENSIVE METABOLIC PANEL Routine 11/05/2018 10:49 AM EDT Crohn's disease of both small and large intestine with rectal bleeding documented in this encounter Results * Differential, Automated (11/05/2018 10:49 AM EDT) Neutrophil % 45.8 % [facility] Neutrophil Absolute 2.78 1.70 - 6.10 x10(3)/[facility] Lymph % 43.6 % [facility] Lymphocytes Abs 2.6 0.9 - 3.2 x10(3)/[facility] Monocyte % 8.9 % [facility] Monocyte Abs 0.5 0.3 - 0.9 x10(3)/[facility] Eos % 1.0 % [facility] Eosinophils Abs 0.1 0.0 - 0.4 x10(3)/[facility] Basophil % 0.5 % [facility] Baso Absolute 0.0 0.0 - 0.1 x10(3)/[facility] Immature Gran % 0.20 % [facility] Comment: Immature granulocytes(IG's)percentage and absolute count will include metamyelocytes, myelocytes, and promyelocytes. Blood smears from CBCs yielding IG's will be scanned manually for concordance. If this scan disagrees with the automated IG or if promyelocytes are noted, a manual differential will be performed. Immature Gran Absolute 0.01 0.00 - 0.04 x10(3)/[facility] Blood specimen (specimen) 11/05/2018 10:49 AM EDT 11/05/2018 11:00 AM EDT Narrative Resulting Agency Comment Spec In Lab Fide Donnelly [employer] BLES [facility] [place] [address] * Hemogram (11/05/2018 10:49 AM EDT) White Blood Cell 6.1 4.0 - 9.5 x10(3)/[facility] Red Blood Cell 4.20 4.00 - 5.21 x10(6)/[facility] Hemoglobin 12.9 11.7 - 15.5 gm/dL [facility] Hematocrit 38.7 35.7 - 45.8 % [facility] Mean Cell Volume 92.1 82.6 - 94.4 [facility] Mean Cell Hemoglobin 30.7 27.1 - 32.0 pg [facility] Mean Cell Hemoglobin Concentration 33.3 31.7 - 35.0 gm/dL [facility] Platelet 254 145 - 357 x10(3)/[facility] RDW Standard Deviation 41.1 37.0 - 46.0 [facility] RDW coefficient of variation 12.1 11.5 - 14.1 % [facility] Mean Platelet Volume 9.2 7.6 - 12.9 [facility] NRBC% auto 0.0 % [facility] NRBC Absolute 0.000 0.000 - 0.000 x10(3)/[facility] Blood specimen (specimen) 11/05/2018 10:49 AM EDT 11/05/2018 11:00 AM EDT Narrative Resulting Agency Comment Spec In Lab Fide Donnelly [employer] BLES Performing Organization Address [facility] Co de Phone Number [facility] [place] [address] * CRP, acute inflammation (11/05/2018 10:49 AM EDT) C-Reactive Protein 1.8 <=4.9 mg/L [facility] Blood specimen (specimen) 11/05/2018 10:49 AM EDT 11/05/2018 11:00 AM EDT Narrative Resulting Agency Comment Spec In Lab Fide Donnelly SUPER[employer] ORDERAB LES Performing Organization Address [facility] Co de Phone Number [facility] [place] [address] * Sedimentation rate (11/05/2018 10:49 AM EDT) Sedimentation Rate Automated 8 0 - 20 mm/hr [facility] Blood specimen (specimen) 11/05/2018 10:49 AM EDT 11/05/2018 11:00 AM EDT Narrative Resulting Agency Comment Spec In Lab Fide Donnelly [employer]PER[employer] ORDER[employer] BLES Performing Organization Address [facility] Co de Phone Number [facility] [place] [address] * (ABNORMAL) Comprehensive metabolic panel (non-fasting) (11/05/2018 10:49 AM EDT) Glucose 105 65 - 199 mg/dL [facility] Comment:Diabetes: >=200 mg/d L plus symptoms Blood Urea Nitrogen 18 8 - 18 mg/dL [facility] Creatinine 0.72 0.70 - 1.20 mg/dL [facility] Sodium 141 135 - 145 mmol/L [facility] Potassium 4.5 3.5 - 5.0 mmol/L [facility] Comment: Please note: ??Patients with WBC >100,000 may have falsely elevated Potassium levels. ??For accurate Potassium quantification in these patients send serum separator tube (gold top) for subsequent determinations. ??Contact the Clinical Chemistry Laboratory if there are any questions. Chloride 104 98 - 107 mmol/L [facility] Carbon Dioxide 28 22 - 31 mmol/L [facility] Anion Gap 9 5 - 15 mmol/L [facility] Calcium 9.0 8.5 - 10.5 mg/dL [facility] Protein, Total 7.7 6.1 - 8.0 gm/dL [facility] Albumin 4.4 3.2 - 5.2 gm/dL [facility] Aspartate Aminotransferase 22 0 - 30 unit/L [facility] Alanine Aminotransferase 25 0 - 30 unit/L [facility] Alkaline Phosphatase 76 35 - 105 unit/L [facility] Bilirubin, Total <0.2(L) 0.2 - 1.3 mg/dL [facility] Est Glomerular Filtration Rate 92 >=60 mL/min/1. 73 m?? [facility] Comment: The eGFR was calculated using the CKD-EPI equation. As with all creatinine based estimates of kidney function, eGFR values calculated with the CKD-EPI equation are not accurate in patients with acute kidney failure, extremes of body mass or the acutely ill. http://[employer]DHMCnkf eGFR 106 >=60 mL/min/1. 73 m?? [facility] Comment: The eGFR was calculated using the CKD-EPI equation. As with all creatinine based estimates of kidney function, eGFR values calculated with the CKD-EPI equation are not accurate in patients with acute kidney failure, extremes of body mass or the acutely ill. http://[employer]DHMCnkf Blood specimen (specimen) 11/05/2018 10:49 AM EDT 11/05/2018 11:00 AM EDT Narrative Resulting Agency Comment Spec In Lab Fide Donnelly [employer] [place] [address] documented in this encounter Visit Diagnoses Diagnosis Crohn's disease of both small and large intestine with rectal bleeding Regional enteritis of small intestine with large intestine documented in this encounter Care Teams Freezer Assistant Relationship Specialty Start Date End Date Valarie Phillips MD [address] [place] [address] PCP - General General Internal Medicine 09/06/17 documented as of this encounter
--- OUTSIDE RECORDS SUMMARY | 2024-04-14 02:14 | XMS_ITS | Encounter Summary ---
Author Organization [facility] [place] [address] Care Team Providers Care Asbestos Siding Installer Name Role Phone Valarie Phillips MD Primary Care Provider [phone] Encounter Details Date Type Department Care Team (Late st Contact Info) Description 12/02/2018 Notes Only Gastroenterology at [facility] [place] [place] [address] Fide Donnelly, ROMULO [facility] [place] [address] Social History Tobacco Use Types Packs/Day Years [...] Progress Notes * Fide Donnelly APRN - 12/02/2018 6:08 PM EDT Anorectal manometry: IMPRESSION No overall evidence of dyssynergic defecation on anorectal manometry or balloon expulsion test. ?? Resting anal sphincter pressure reflecting internal sphincter function was elevated. Maximum squeeze pressures reflecting external sphincter function were normal. ?? Rectal sensation was hypersensitive. As per d/w Dr. Nicolas: Rec: start Metamucil (psyllium). Get the no sugar added version without artifical sweeteners (such as Metamucil Free). Start at 1 teaspoon daily for 1 week, then 2 teaspoons daily for one week, then maintain one Tablespoon daily afterward. Can slowly increase to 2 Tablespoons daily if still constipated. If constipation persists for at least two weeks at the target dose, then try four consecutive dietary trials to add to the regimen. Each dietary trial should be last at least two weeks and be done separately: 1) Make a smoothie once daily made of ?? cup kefir, ?? cup papaya, 1/3 cup aloe juice, one peeled (green or gold) kiwi fruit, blended with ice. 2) Take two peeled (green or gold) kiwifruit per day?. 3) Mix 1 cup apple sauce, 1 cup oat? bran, ?? cup prune juice?. Take one Tbsp. Daily. Freeze the rest in an ice cube tray? to use as needed. 4) Drink Smooth Move tea once at night IF STILL CONSTIPATED - change metamucil to miralax 17-34g daily I spoke with pt and reviewed above. She had seen her PCP and discussed getting her to see an spinning room worker that I had recommended. She needs to stop her Mag citrate and try above. documented in this encounter Plan of Treatment Upcoming Encounters Date Type Department Care Team (Late st Contact Info) Description 07/18/2024 1:00 PM EDT TH Visit (TeleHealth) [place] [address] Malinda Christopher MD [facility] [place] [address] documented as of this encounter Goals Goal Patient Goal Type Associated Problems Recent Progress Patient-Stated? Author [facility] Medication Compliance and Understanding Patient Facing Action Plan Lakeisha Matos, [facility] Note: Achieve and maintain control of Crohn's symptoms as assessed by specialist every 3 to 6 months or more documented as of this encounter Visit Diagnoses Not on filedocumented in this encounter Care Teams Asbestos Siding Installer Relationship Specialty Start Date End Date Valarie Phillips MD [address] [place] [address] PCP - General General Internal Medicine 09/06/17 documented as of this encounter
--- OUTSIDE RECORDS SUMMARY | 2024-04-14 02:14 | XMS_ITS | Encounter Summary ---
[place] [address] Care Team Providers Care Commanding Officer Homicide Squad Name Role Phone Valarie Phillips MD Primary Care Provider [phone] Encounter Details Date Type Department Care Team (Late st Contact Info) Description 11/05/2018 Telephone [place] [id number] Jennifer Cabrera Social History Tobacco Use Types Packs/Day [...] encounter Miscellaneous Notes * Telephone Encounter - Jennifer Cabrera - 11/05/2018 10:04 AM EDT ANORECTAL MANOMETRY CLINICAL SAFETY CHECKLIST 11/05/2018 JENNIFER Mahoney [address] [place] [address] [id number] : 1960 REFERRING PROVIDER: Stephanie Donnelly APRN PRIMARY CARE PROVIDER: Valarie Phillips MD PRIMARY SYMPTOM (PROCEDURE INDICATION): constipation SAFETY QUESTIONS ANAL OR RECTAL SURGERY WITHIN SIX MONTHS? no *SEVERE ACTIVE* ULCERATIVE COLITIS OR CROHN'S DISEASE DETERMINED BY THE RMD? no IF YES TO ANY OF THE ABOVE PRE-PROCEDURE QUESTIONS, please inform the patient that the test cannot be scheduled due to safety concerns about testing, and the patient should speak with their provider to consider alternative testing. The home care scheduler should also contact the provider's office directly tonotify them that we are unable to schedule due to a contraindication to testing. Then, delete the remainder of this checklist and close out the referral. QUESTIONS FOR THE PATIENT BLOOD THINNERS SUCH PLAVIX, COUMADIN, PRADAXA? no (pt does not have to stop any blood thinners for this procedure) DOES THE PATIENT USE A WHEELCHAIR? no VERBAL PATIENT INSTRUCTIONS The written instructions are very important for the patient to review and contain specific dietary and medication instructions prior to testing. These instructions will give the patient the most accurate test result. The patient should speak with their referring provider or our office if they have any questions. APPOINTMENT NOTES TEMPLATE ARM, symptom: constipation, RMD: Fide Donnelly APRN, PCP: Valarie Phillips MD, wheelchair: No (At exit, the RMD for appointment notes is the GI provider who saw the patient) A copy of this note is being sent to Miriam Mckinney for scheduling purposes. ~d documented in this encounter Plan of Treatment Upcoming Encounters Date Type Department Care Team (Late st Contact Info) Description 07/18/2024 1:00 PM EDT TH Visit (TeleHealth) [place] [address] Malinda Christopher MD [facility] [place] [address] documented as of this encounter Goals Goal [...] on filedocumented in this encounter Care Teams Commanding Officer Homicide Squad Relationship Specialty Start Date End Date Valarie Phillips MD [address] [place] [address] PCP - General General Internal Medicine 09/06/17 documented as of this encounter
--- OUTSIDE RECORDS SUMMARY | 2024-04-14 02:14 | XMS_ITS | Encounter Summary ---
[place] [address] Care Team Providers Care Director Of In Service Education Name Role Phone Valaire Phillips MD Primary Care Provider [phone] Reason for Visit * Reason Onset Date Comments Medication Refill 03/04/2018 Encounter Details Date Type Department Care Team (Late st Contact Info) Description 03/04/2018 Refill [place] [phone] Bee Tejeda MD [facility] [place] [address] Social History Tobacco Use Types Packs/Day Years [...] PM EDT TH Visit (TeleHealth) [place] [phone] Malinda Christopher MD [facility] [place] [address] documented as of this encounter Goals Goal [...] filedocumented in this encounter Care Teams Director Of In Service Education Relationship Specialty Start Date End Date Valarie Phillips MD [address] [place] [address] PCP - General General Internal Medicine 09/06/17 documented as of this encounter
--- OUTSIDE RECORDS SUMMARY | 2024-04-14 02:14 | XMS_ITS | Encounter Summary ---
Author Organization [place] [address] Care Team Providers Care Retail Warehouse Associate Name Role Phone Valarie [place] MD Primary Care Provider [phone] Encounter Details Date Type Department Care Team (Latest Contact Info) Description 11/05/2017 3:00 PM EDT Clinical [place] [address] Meme Garza, RN Crohn's disease of large intestine without complication [...] as of this encounter Progress Notes * Meme Garza, RN - 11/05/2017 3:00 PM EDT Patient here for Humira teaching. Patient educated in injection techniques-including site selection, cleaning area, and actual medication administration using the Humira talking pen and visual aid as reference. First injection performed by myself as demonstration. Patient was able to perform last three injections with no difficulty in abdomen Pt received a total of 160 mg of Humira in 4 divided doses. Written instructions on administration schedule and lab schedule given. [facility] All questions answered at time of visit. Pt knows to call for any questions or concerns. No reaction to medication noted. documented in this encounter Plan of Treatment Upcoming Encounters Date Type Department Care Team (Late st Contact Info) Description 07/18/2024 1:00 PM EDT TH Visit (TeleHealth) [place] [address] Malinda Christopher MD [facility] [place] [address] documented as of this encounter Goals Goal Patient Goal Type Associated Problems Recent Progress Patient-Stated? Author [facility] Medication Compliance and Understanding Patient Facing Action Plan Lakeisha Matos, [facility] Note: Achieve and maintain control of Crohn's symptoms as assessed by specialist every 3 to 6 months or more documented as of this encounter Visit Diagnoses Diagnosis Crohn's disease of large intestine without complication Regional enteritis of large intestine documented in this encounter Administered Medications Inactive Administered Medications - up to 3 most recent administrations Medication Order MAR Action Action Date Dose Rate Site adalimumab (HUMIRA) injection 160 mg 160 mg, Subcutaneous, ONCE, 1 dose, On [place] 11/05/17 at 1630, Routine, Adalimumab is restricted for Crohn's disease only- all other indications will be treated as a Non-Formulary Request.Is this medication being ordered for treatment of Crohn's disease? Yes Given 11/05/2017 4:03 PM EDT 160 mg Abdominal Tissue documented in this encounter Care Teams Retail Warehouse Associate Relationship Specialty Start Date End Date Valarie Phillips MD [address] [place] [address] PCP - General General Internal Medicine 09/06/17 documented as of this encounter
--- OUTSIDE RECORDS SUMMARY | 2024-04-14 02:14 | XMS_ITS | Encounter Summary ---
Author Organization [facility] [place] [address] Care Team Providers Care Internet Marketing Assistant Name Role Phone Valarie [place] MD Primary Care Provider [phone] Reason for Visit * Reason Comments Medication Management Encounter Details Date Type Department Care Team (Late st Contact Info) Description 08/31/2018 Specialty [place] [address] Lakeisha Kent [facility] Social History Tobacco Use [...] this encounter Progress Notes * Lakeisha Meyer [facility] - 08/31/2018 10:05 AM EDT Clinical Management Plan: Refill of Humira Specialty Pharmacy Consultation; Lakeisha Meyer [facility] Comprehensive Medication Management (CMM) Janice [...] beneficiary Provider: plan sponsor pharmacist Visit Type: [facility] Follow-up Method of Contact: by telephone Cognitive Ability: good Cognitive Impairment Status Verified this Year: no Allergies and Drug intolerance: Allergies Allergen Reactions ??? [place] ??? Polyethylene Glycol Analogues Hives Medication Reconciliation Discrepancies (compared to [facility] med list) -none New medications: no New [...] were made at the appointment and that [facility] is providing recommendations (summary located at top of note) for provider review and follow up. Lakeisha Meyer RPH 08/31/18 10:05 AM documented in this encounter Plan of Treatment Upcoming Encounters Date Type Department Care Team (Late st Contact Info) Description 07/18/2024 1:00 PM EDT TH Visit (TeleHealth) [place] [address] Malinda Christopher MD [facility] [place] [address] documented as of this encounter Goals Goal [...] on filedocumented in this encounter Care Teams Internet Marketing Assistant Relationship Specialty Start Date End Date Valarie Phillips MD [address] [place] [address] PCP - General General Internal Medicine 09/06/17 documented as of this encounter
--- OUTSIDE RECORDS SUMMARY | 2024-04-14 02:14 | XMS_ITS | Encounter Summary ---
Author Organization [facility] [place] [address] Care Team Providers Care Land Surveying Manager Name Role Phone Valarie [place] MD Primary Care Provider [phone] Encounter Details Date Type Department Care Team (Late st Contact Info) Description 02/03/2018 9:00 AM EST Office Visit Gastroenterology at [facility] [place] [address] Bee Tejeda MD [facility] [place] [address] Crohn's disease of colon with complication Social [...] Sign Reading Time Taken Comments Blood Pressure 126/66 02/03/2018 9:00 AM EST Pulse 65 02/03/2018 9:00 AM EST Temperature - - Respiratory Rate - - Oxygen Saturation - - Inhaled Oxygen Concentration - - Weight 61.1 kg (134 lb 12.8 oz) 02/03/2018 9:00 AM EST Height 151.1 cm (4' 11.5) 02/03/2018 9:00 AM ES T Body Mass Index 26.77 02/03/2018 9:00 AM EST documented in this encounter Patient Instructions * Patient Instructions* Bee Tejeda MD - 02/03/2018 9:00 AM EST For patients who have not received Pneumococcal vaccination: # If you have had PCV13 (Prenvar) first, then administer PPSV23 (Pneumovax) > 8 weeks later For patients who have received one dose of PPSV23 (Pneumovax) # Administer PCV13 (Prevnar) >1 year after having received PPSV23 (Pneumovax) # Next dose of PPSV23 (Pneumovax) should be given >5 years after first dose, and >8 weeks after PCV13 (Prevnar) documented in this encounter Progress Notes * Bee Tejeda MD - 02/03/2018 9:00 AM EST [facility] Division of Gastroenterology and Hepatology Outpatient Follow up Reason for Visit: ?Crohn's disease Referred by ID: Janice Mahoney is a 57 y.o. female with PMH significant for hemorrhoid surgery who is seen in follow up for Crohn's disease. Interval History: She has periods where she is straining to have a bowel movement even if it is not a hard bowel movement. Her stools look very narrow. She does not feel constipated. She does have soreness afterwards and occasional rectal bleeding. She has had a vaginal yeast infection, and then treats them. She is able to treat with OTC fungal treatments. Review of Systems: Constitutional: no weight loss HEENT: No visual changes, URI symptoms Cardio: No chest pain Resp: no SOB Hem/Lymph: no new lumps or bumps on body GI: see HPI : no dysuria Skin: no new rashes Musculoskeletal: longstanding joint pains Neuro: no new numbness, weakness in extremities All other systems negative except as above in HPI ?? Patient Active Problem List Diagnosis ??? Crohn's disease of colon with complication Crohn's Colitis: ?? Location: Colonic and mid small bowel, Behavior: Inflammatory perianal disease in form of skin tags ?? Symptoms: worsening hemorrhoids April 2017 undergoes excisional hemorrhoidectomy that did not heal ?? 10/02/17: Colonoscopy ([facility]) Large perianal inflamed skin tags [...] 12/17/17 [place] Humira level 12.8, no antibodies Health Maintenance: ?? 10/19/17 TB - Quant gold neg ?? 10/19/17 Hep B negative ??? Anal pain ??? Clotting disorder Protein [...] 3.66) performed by Moe Smith MD at [facility] END[facility]COPY ??? PRO COLONOSCOPY, DIAGNOSTIC 02/19/2012 COLONOSCOPY, DIAGNOSTIC performed by Nathanael Pyle MD at [facility] Social History: reports that she has quit smoking. she has never used smokeless tobacco. She reports that she drinks about 3.0 oz of alcohol per week. Family History: family history includes Cancer in her maternal grandmother and paternal grandmother. Current Outpatient Medications Medication Sig Dispense Refill ??? adalimumab 40 mg/0.4 mL Pen Injector Kit Inject 40 mg subcutaneously every 14 days. 3 kit 1 ??? acetaminophen (TYLENOL) 325 mg Tablet [...] Reported on 12/09/2017) 2.5 g 0 ??? lidocaine (XYLOCAINE) 2 % jelly Apply topically 4 times daily as needed. (Patient not taking: Reported on 12/09/2017) 30 mL 0 ??? lactobacillus rhamnosus, GG, [...] for this visit. Allergies Allergen Reactions ??? [place] ??? Polyethylene Glycol Analogues Hives Physical Examination: BP 126/66 Pulse 65 Ht 151.1 cm (4' 11.5) Wt 61.1 kg (134 lb 12.8 oz) BMI 26.77 kg/m?? General:Pleasant, cooperative, NAD HEENT: NC/AT, MMM Eyes: anicteric sclera Psych: Normal mood Labs: Reviewed in EDH/Scan Docs Lab Results Component Value Date WBC 6.5 12/09/2017 HGB 12.7 12/09/2017 HCT 39.0 12/09/2017 MCV 90.7 12/09/2017 PLATELET 282 12/09/2017 Chemistry Component Value Date/Time NA 140 10/14/2017 0916 K 4.5 10/14/2017 0916 CL 99 10/14/2017 0916 CO2 25 10/14/2017 0916 BUN 10 10/14/2017 0916 CREATININE 0.64 (L) 10/14/2017 0916 Component Value Date/Time CALCIUM 9.0 10/14/2017 0916 ALKPHOS 87 12/09/2017 0849 AST 20 12/09/2017 0849 ALT 18 12/09/2017 0849 BILITOT 0.3 12/09/2017 0849 Lab Results Component Value Date ALT 18 12/09/2017 AST 20 12/09/2017 ALKPHOS 87 12/09/2017 BILITOT 0.3 12/09/2017 Additional Testing: Reviewed available labs, imaging and endoscopy results in EDH/CIS as well as Scan Docs tab. IMPRESSION: Janice Mahoney is a 57 y.o. with PMH significant for hemorrhoidectomy who is seen in follow up for ileocolonic Crohn's. Her biggest complaint at this time is having to strain with bowel movements and having more pencillike stools. We reviewed the results of her Humira level of 12.8 and how we typically think this is agood level to achieve mucosal healing, but oftentimes with perianal disease higher levels are indeed needed. I wonder how much of her current symptoms are related to irreversible bowel damage from her hemorrhoidectomy. We discussed the next steps would be trying to increase the amount of fiber thatshe is taking. She is on Benefiber 2 teaspoons in the morning and we can try increasing this at nighttime as well. We thought about MiraLAX, but she has developed hives to polyethylene glycol and therefore will avoid it. Also discussed the importance of a morning bathroom routine. She also asks about diet given that she is not having any stricturing disease would recommend for her to be on a high-fiber diet. We also discussed the specific carbohydrate diet and Mediterranean diet that we are currently learning more about how this affects Crohn's disease. Her PCP visit she had a pneumococcal vaccination, shringix, and influenza. We reviewed that she does indeed need both pneumococcal vaccinations but depending on which one she received first the timing may be different. RECOMMENDATIONS: # CBC, CMP, CRP, 3 times per year # Continue Humira 40 mg every other week. # Check B12 with next labs # Benefiber increase to BID Discussed the recommendations for pneumococcal vaccination: For patients who have not received Pneumococcal vaccination # Administer PCV13 (Prenvar) first, then administer PPSV23 (Pneumovax) > 8 weeks later For patients who have received one dose of PPSV23 # Administer PCV13 (Prevnar) >1 year after having received PPSV23 (Pneumovax) # Next dose of PPSV23 (Pneumovax) should be given >5 years after first dose, and >8 weeks after PCV13 (Prevnar) Follow up in 3 months. 20 minutes of this 30 minute osns-wu-mira encounter were spent counseling the patient in medical issues described above. [place] [address] P: [phone] F: [phone] documented in this encounter Plan of Treatment Upcoming Encounters Date Type Department Care Team (Late st Contact Info) Description 07/18/2024 1:00 PM EDT TH Visit (TeleHealth) [place] [address] Malinda Christopher MD [facility] [place] [address] documented as of this encounter Goals Goal Patient Goal Type Associated Problems Recent Progress Patient-Stated? Author Home Medication Compliance and Understanding Patient Facing Action Plan Lakeisha Matos, [facility] Note: Achieve and maintain control of Crohn's symptoms as assessed by specialist every 3 to 6 months or more documented as of this encounter Visit Diagnoses Diagnosis Crohn's disease of colon with complication documented in this encounter Care Teams Land Surveying Manager Relationship Specialty Start Date End Date Valarie Phillips MD [address] [place] [address] PCP - General General Internal Medicine 09/06/17 documented as of this encounter
--- OUTSIDE RECORDS SUMMARY | 2024-04-14 02:14 | XMS_ITS | Encounter Summary ---
Author Organization [facility] [place] [address] Care Team Providers Care Head Of Cytogenetics Name Role Phone Valarie Phillips MD Primary Care Provider [phone] Encounter Details Date Type Department Care Team (Late st Contact Info) Description 10/27/2018 [place] [address] Maren Nicholas, [facility] Social History Tobacco Use Types Packs/Day Years [...] encounter Miscellaneous Notes * Telephone Encounter - Maren Nicholas - 11/01/2018 9:24 AM EDT Clinical Management Plan: Refill Specialty Pharmacy Consultation; Maren Nicholas Comprehensive Medication Management (CMM) Janice Mahoney is [...] Drug intolerance: Allergies Allergen Reactions ??? [place] ??? Polyethylene Glycol Analogues Hives Medication Reconciliation Discrepancies (compared to [facility] med list) No New medications: No New medical conditions: No New allergies: No Adherence: Any missed doses? No Are you experiencing any side effects from your medications? No Patient understands no changes to current drug regimen were made.. Maren Nicholas 11/01/18 9:24 AM documented in this encounter Plan of Treatment Upcoming Encounters Date Type Department Care Team (Late st Contact Info) Description 07/18/2024 1:00 PM EDT TH Visit (TeleHealth) [place] [address] Malinda Christopher MD [facility] [place] [address] documented as of this encounter Goals Goal Patient Goal Type Associated Problems Recent Progress Patient-Stated? Author [facility] Medication Compliance and Understanding Patient Facing Action Plan No Lakeisha Kent, [facility] Note: Achieve and maintain control of Crohn's symptoms as assessed by specialist every 3 to 6 months or more documented as of this encounter Visit Diagnoses Not on filedocumented in this encounter Care Teams Head Of Cytogenetics Relationship Specialty Start Date End Date Valarie Phillips MD [address] [place] [address] PCP - General General Internal Medicine 09/06/17 documented as of this encounter
--- OUTSIDE RECORDS SUMMARY | 2024-04-14 02:14 | XMS_ITS | Encounter Summary ---
Author Organization [facility] [place] [address] Care Team Providers Care Lot Associate Name Role Phone Valarie Phillips MD Primary Care Provider [phone] Reason for Visit * Reason Comments Medication Management Encounter Details Date Type Department Care Team (Late st Contact Info) Description 01/24/2019 Specialty Pharmacy Pharmacy at [facility] [place] [address] Seble Hong [facility] Social History Tobacco Use [...] Progress Notes * Seble Carrington RPH - 01/24/2019 1:24 PM EST Clinical Management Plan: Refill Specialty [...] and Drug intolerance: Allergies Allergen Reactions ??? [place] ??? Polyethylene Glycol Analogues Hives Medication Reconciliation Discrepancies (compared to [facility] med list) -None New medications: no New [...] were made at the appointment and that [facility] is providing recommendations (summary located at top of note) for provider review and follow up. Seble Carrington RPH 01/24/19 1:46 PM documented in this encounter Plan of Treatment Upcoming Encounters Date Type Department Care Team (Late st Contact Info) Description 07/18/2024 1:00 PM EDT TH Visit (TeleHealth) [place] [address] Malinda Christopher MD [facility] [place] [address] documented as of this encounter Goals Goal Patient Goal Type Associated Problems Recent Progress Patient-Stated? Author [facility] Medication Compliance and Understanding Patient Facing Action Plan Lakeisha Matos [facility] Note: Achieve and maintain control of Crohn's symptoms as assessed by specialist every 3 to 6 months or more documented as of this encounter Visit Diagnoses Not on filedocumented in this encounter Care Teams Lot Associate Relationship Specialty Start Date End Date Valarie Phillips MD [address] [place] [address] PCP - General General Internal Medicine 09/06/17 documented as of this encounter
--- OUTSIDE RECORDS SUMMARY | 2024-04-14 02:14 | XMS_ITS | Encounter Summary ---
Author Organization [facility] [place] [address] Care Team Providers Care Deck Molder Name Role Phone Valarie Phillips MD Primary Care Provider [phone] Reason for Visit * Reason Comments Medication Management Encounter Details Date Type Department Care Team (Late st Contact Info) Description 08/09/2018 Specialty Pharmacy Pharmacy at [facility] [place] [address] Derek Bauer Lacy Social History Tobacco Use Types Packs/Day [...] as of this encounter Progress Notes * Derek Bauer RPH - 08/09/2018 2:31 PM EDT Clinical Management Plan: Refill Specialty Pharmacy Consultation; Derek Bauer Lacy Comprehensive Medication Management (CMM) Janice Petty Denzel Ms. Janice Mahoney is a 58 y.o. (1960) female who was contacted in regard to a specialty medication refill reminder. Spoke with patient regarding humira. A review of [...] Title Type of Medication Management: chronic disease management Referred By: provider Recipient: caregiver Provider: plan sponsor pharmacist Visit Type: [facility] Follow-up Method of Contact: by telephone Cognitive Ability: good Cognitive Impairment Status Verified this Year: no Allergies and Drug intolerance: Allergies Allergen Reactions ??? [place] ??? Polyethylene Glycol Analogues Hives Medication Reconciliation Discrepancies (compared to [facility] med list) -none New medications: no New [...] Confirmed plan for next specialty medication refill: pick-up at pharmacy Refills needed for supportive medications: not needed Are you experiencing any side effects from your medications? no Pt understands no changes to current drug regimen were made at the appointment and that [facility] is providing recommendations (summary located at top of note) for provider review and follow up. Derek Bauer RPH 08/09/18 2:39 PM documented in this encounter Plan of Treatment Upcoming Encounters Date Type Department Care Team (Late st Contact Info) Description 07/18/2024 1:00 PM EDT TH Visit (TeleHealth) [place] [address] Malinda Christopher MD [facility] [place] [address] documented as of this encounter Goals Goal Patient Goal Type Associated Problems Recent Progress Patient-Stated? Author [facility] [place] Medication Compliance and Understanding Patient Facing Action Plan Lakeisha Matos [facility] Note: Achieve and maintain control of Crohn's symptoms as assessed by specialist every 3 to 6 months or more documented as of this encounter Visit Diagnoses Not on filedocumented in this encounter Care Teams Deck Molder Relationship Specialty Start Date End Date Valarie Phillips MD [address] [address] PCP - General General Internal Medicine 09/06/17 documented as of this encounter
--- OUTSIDE RECORDS SUMMARY | 2024-04-14 02:14 | XMS_ITS | Encounter Summary ---
Author Organization [facility] [place] [address] Care Team Providers Care Dental Biller Name Role Phone Valarie Phillips MD Primary Care Provider [phone] Reason for Visit * Reason Comments Medication Management Encounter Details Date Type Department Care Team (Late st Contact Info) Description 04/16/2018 Specialty Pharmacy Pharmacy at [facility] [place] [address] Derek Bauer RPH Social History Tobacco Use Types Packs/Day [...] Progress Notes * Derek Bauer RPH - 04/16/2018 4:29 PM EST Clinical Management Plan: Refill Specialty Pharmacy Consultation; Derek Bauer Lacy Comprehensive Medication Management (CMM) Janice Malinda Denzel Ms. Janice Mahoney is a 58 y.o. (1960) female who was contacted in regard to a specialty medication refill reminder. Spoke with patient regarding adalimumab. A review of the medication therapy was performed. The medication was Refilled Pending a prior authoriztion, and all medication related questions and concerns [...] beneficiary Provider: plan sponsor pharmacist Visit Type: [facility] Follow-up Method of Contact: by telephone Cognitive Ability: good Cognitive Impairment Status Verified this Year: no Allergies and Drug intolerance: Allergies Allergen Reactions ??? [place] ??? Polyethylene Glycol Analogues Hives Medication Reconciliation Discrepancies (compared to [facility] med list) -none New medications: no New [...] were made at the appointment and that [facility] is providing recommendations (summary located at top of note) for provider review and follow up. Derek Bauer RPH 04/16/18 4:29 PM documented in this encounter Plan of Treatment Upcoming Encounters Date Type Department Care Team (Late st Contact Info) Description 07/18/2024 1:00 PM EDT TH Visit (TeleHealth) [place] [address] Malinda Christopher MD [facility] [place] [address] documented as of this encounter Goals Goal [...] on filedocumented in this encounter Care Teams Dental Biller Relationship Specialty Start Date End Date Valarie [place] [address] [place] [address] PCP - General General Internal Medicine 09/06/17 documented as of this encounter
--- OUTSIDE RECORDS SUMMARY | 2024-04-14 02:14 | XMS_ITS | Encounter Summary ---
[place] [address] Care Team Providers Care Technical Photographer Name Role Phone Valarie Phillips MD Primary Care Provider [phone] Reason for Visit * Reason Onset Date Comments Prior Authorization 02/22/2018 Humira Encounter Details Date Type Department Care Team (Late st Contact Info) Description 02/22/2018 Telephone [place] [address] Shadi Goodrich Prior Authorization (Humira) Social History Tobacco Use [...] encounter Miscellaneous Notes * Telephone Encounter - Shadi Goodrich - 02/22/2018 1:00 PM EST [facility], Prior Authorization Approval APPROVAL DATES: 01/23/2018 to 2019 SPECIFIC INS REQUIREMENT: Can be filled through Pharmacy, $0 copay. CASE/REFERENCE # [id number] APPROVAL NOTIFICATION RECEIVED VIA: Ins Call documented in this encounter Plan of Treatment Upcoming Encounters Date Type Department Care Team (Late st Contact Info) Description 07/18/2024 1:00 PM EDT TH Visit (TeleHealth) [place] [address] Malinda Christopher MD [facility] [place] [address] documented as of this encounter Goals Goal [...] on filedocumented in this encounter Care Teams Technical Photographer Relationship Specialty Start Date End Date Valarie Phillips MD [address] [place] [address] PCP - General General Internal Medicine 09/06/17 documented as of this encounter
--- OUTSIDE RECORDS SUMMARY | 2024-04-14 02:14 | XMS_ITS | Encounter Summary ---
Author Organization [facility] [place] [address] Care Team Providers Care Career Specialist Name Role Phone Valarie Phillips MD Primary Care Provider Encounter Details Date Type Department Care Team (Late st Contact Info) Description 08/20/2018 Notes Only Gastroenterology at [facility] [place] [address] Candi Aiken Social History Tobacco Use Types Packs/Day Years [...] as of this encounter Progress Notes * Candi Aiken - 08/20/2018 11:59 PM EDT Study title: IBD Aches & Pains Study PI: Yousif Og [facility] #: [id number] [facility] #: [id number] Janice comes into the clinic to discuss the above titled clinical study. The patient was provided with a copy of the consent form to follow along during our discussion. The consent form was reviewed in detail using the teach-back method, including: study design, purpose of the study, the voluntary nature of the study, potential risks and benefits, and what to do if they have any questions or concerns. Following this discussion and answering all questions, the patient expressed an adequate understanding of the study and willingness to participate. The patient signed all of the applicable sections of the consent form, and was provided a signed copy of the form. The original consent form will be scanned into the medical records associated with this visit. Data collection was undertaken during this visit, including: sensory testing (pressure pain threshold, temporal summation, vibration detection threshold, Billingsley-Naeem monofilament exam, cold pressor test) and digital questionnaires. No further patient contact is required for participation in this study. documented in this encounter Plan of Treatment Upcoming Encounters Date Type Department Care Team (Late st Contact Info) Description 07/18/2024 1:00 PM EDT TH Visit (TeleHealth) [place] [address] Malinda Christopher MD [facility] [place] [address] documented as of this encounter Goals Goal Patient Goal Type Associated Problems Recent Progress Patient-Stated? Author [facility] Medication Compliance and Understanding Patient Facing Action Plan No Lakeisha Kent, [facility] Note: Achieve and maintain control of Crohn's symptoms as assessed by specialist every 3 to 6 months or more documented as of this encounter Visit Diagnoses Not on filedocumented in this encounter Care Teams Career Specialist Relationship Specialty Start Date End Date Valarie Phillips MD [address] [place] [address] PCP - General General Internal Medicine 09/06/17 documented as of this encounter
--- OUTSIDE RECORDS SUMMARY | 2024-04-14 02:14 | XMS_ITS | Encounter Summary ---
Author Organization [facility] [place] [address] Care Team Providers Care Graduate Civil Engineer Name Role Phone Valarie Phillips MD Primary Care Provider [phone] Encounter Details Date Type Department Care Team (Late Contact Info) Description 12/11/2017 Orders [place] [address] Bee Tejeda MD [facility] [place] [address] Crohn's disease of both small and large intestine without complication Social History Tobacco [...] PM EDT TH Visit (TeleHealth) [place] [address] Malinda Christopher MD [facility] [place] [address] documented as of this encounter [...] disease of both small and large intestine without complication Regional enteritis of small intestine with large intestine documented in this encounter Care Teams Graduate Civil Engineer Relationship Specialty Start Date End Date Valarie Phillips MD [address] [place] [address] PCP - General General Internal Medicine 09/06/17 documented as of this encounter
--- OUTSIDE RECORDS SUMMARY | 2024-04-14 02:14 | XMS_ITS | Encounter Summary ---
Author Organization [facility] [place] [address] Care Team Providers Care Surface Grinder Name Role Phone Valarie Phillips MD Primary Care Provider [phone] Encounter Details Date Type Department Care Team (Late Contact Info) Description 08/18/2018 Telephone Primary Care at [facility] [address] [place] [address] Angelina Littlejohn MD [address] [facility] [place] [address] Social History Tobacco Use Types Packs/Day Years [...] PM EDT TH Visit (TeleHealth) [place] [address] Malinda Christopher MD [facility] [place] [address] documented as of this encounter Goals Goal [...] on filedocumented in this encounter Care Teams Surface Grinder Relationship Specialty Start Date End Date Valarie Phillips MD [address] [place] [address] PCP - General General Internal Medicine 09/06/17 documented as of this encounter
--- OUTSIDE RECORDS SUMMARY | 2024-04-14 02:14 | XMS_ITS | Encounter Summary ---
Author Organization [facility] [place] [address] Care Team Providers Care Roving Carrier Name Role Phone Valarie Phillips MD Primary Care Provider [phone] Reason for Visit * Reason Onset Date Comments Medication Refill 12/09/2017 Encounter Details Date Type Department Care Team (Late st Contact Info) Description 12/09/2017 Refill [place] [address] Meme Garza RN Social History Tobacco Use [...] PM EDT TH Visit (TeleHealth) [place] [address] Malinda Christopher MD [facility] [place] [address] documented as of this encounter Goals Goal Patient Goal Type Associated Problems Recent Progress Patient-Stated? Author [facility] Medication Compliance and Understanding Patient Facing Action Plan Lakeisha Matos, [facility] Note: Achieve and maintain control of Crohn's symptoms as assessed by specialist every 3 to 6 months or more documented as of this encounter Visit Diagnoses Not on filedocumented in this encounter Care Teams Roving Carrier Relationship Specialty Start Date End Date Valarie Phillips MD [address] [place] [address] PCP - General General Internal Medicine 09/06/17 documented as of this encounter
--- OUTSIDE RECORDS SUMMARY | 2024-04-14 02:14 | XMS_ITS | Encounter Summary ---
Author Organization [facility] [place] [address] Care Team Providers Care Cargo Operations Agent Name Role Phone Valarie Phillips MD Primary Care Provider [phone] Reason for Visit * Reason Comments Medication Management Encounter Details Date Type Department Care Team (Late st Contact Info) Description 12/15/2017 Specialty Pharmacy Pharmacy at [facility] [place] [address] Lakeisha Kent [facility] Social History Tobacco Use Types Packs/Day Years [...] this encounter Progress Notes * Lakeisha Meyer Lacy - 12/15/2017 4:37 PM EDT Clinical Management Plan: Refill of Humira Specialty Pharmacy Consultation; Lakeisha Meyer [facility] Comprehensive Medication Management (CMM) Janice Mahoney is a 57 y.o. (1960) female who was contacted in regard to a specialty medication refill reminder. Spoke with patient regarding ADALIMUMAB. A review of the medication therapy was performed. The medication was Refilled as scheduled, and all medication related questions and concerns were addressed. Janice's next injection is due 12/31. The specialty pharmacy staff will followup with the patient 7 days prior to next refill. Was a change made to the Care Plan: no Assessment and Recommendations: Title Type of Medication Management: targeted medication review Referred By: provider Recipient: beneficiary Provider: plan sponsor pharmacist Visit Type: [facility] Follow-up Method of Contact: by telephone Cognitive Ability: good Allergies and Drug intolerance: Allergies Allergen Reactions ??? [place] ??? Polyethylene Glycol Analogues Hives Medication Reconciliation Discrepancies (compared to [facility] med list) -none New medications: no [...] were made at the appointment and that [facility] is providing recommendations (summary located at top of note) for provider review and follow up. Lakeisha Meyer RPH 12/15/17 4:38 PM documented in this encounter Plan of Treatment Upcoming Encounters Date Type Department Care Team (Late st Contact Info) Description 07/18/2024 1:00 PM EDT TH Visit (TeleHealth) [place] [address] Malinda Christopher MD [facility] [place] [address] documented as of this encounter Goals Goal [...] on filedocumented in this encounter Care Teams Cargo Operations Agent Relationship Specialty Start Date End Date Valarie Phillips MD [address] [place] [address] PCP - General General Internal Medicine 09/06/17 documented as of this encounter
--- OUTSIDE RECORDS SUMMARY | 2024-04-14 02:14 | XMS_ITS | Encounter Summary ---
Author Organization [facility] [place] [address] Care Team Providers Care Slot Floor Attendant Name Role Phone Valarie Phillips MD Primary Care Provider [phone] Reason for Visit * Reason Comments Medication Management Encounter Details Date Type Department Care Team (Late st Contact Info) Description 06/16/2018 Specialty Pharmacy Pharmacy at [facility] [place] [address] Lakeisha Kent [facility] Social History Tobacco Use Types [...] this encounter Progress Notes * Lakeisha Meyer [facility] - 06/16/2018 10:03 AM EDT Clinical Management Plan: Refill of Humira Specialty Pharmacy Consultation; Lakeisha Meyer [facility] Comprehensive Medication Management (CMM) Janice Petty Mahoney Ms. Janice Mahoney is a 58 y.o. (1960) female who was contacted in regard to a specialty medication refill reminder. Spoke with patient regarding Humira. A review of the medication therapy was performed. The medication was Refilled as scheduled, and all medication related questions and concerns were addressed. Patient opted out of formal consultation with a pharmacist because she just spoke with Humira nurse ambassador yesterday and everything is going well with the Humira. The specialty pharmacy staff will follow up with the patient 5-7 days prior to next refill. Was a change made to the Care Plan: no Assessment and Recommendations: Title Type of Medication Management: chronic disease management, targeted medication review Referred By: provider Recipient: beneficiary Provider: plan sponsor pharmacist Visit Type: [facility] Follow-up Method of Contact: by telephone Cognitive Ability: good Cognitive Impairment Status Verified this Year: no Allergies and Drug intolerance: Allergies Allergen Reactions ??? [place] ??? Polyethylene Glycol Analogues Hives Medication Reconciliation Discrepancies (compared to [facility] med list) -none New medications: no New [...] the appointment and that [facility] is providing recommendations (summary located at top of note) for provider review and follow up. Lakeisha Meyer RPH 06/16/18 10:04 AM documented in this encounter Plan of Treatment Upcoming Encounters Date Type Department Care Team (Late st Contact Info) Description 07/18/2024 1:00 PM EDT TH Visit (TeleHealth) [place] [address] Malinda Christopher MD [facility] [place] [address] documented as of this encounter Goals Goal Patient Goal Type Associated Problems Recent Progress Patient-Stated? Author [facility] Medication Compliance and Understanding Patient Facing Action Plan Lakeisha Matos RPH Note: Achieve and maintain control of Crohn's symptoms as assessed by specialist every 3 to 6 months or more documented as of this encounter Visit Diagnoses Not on filedocumented in this encounter Care Teams Slot Floor Attendant Relationship Specialty Start Date End Date Valarie Phillips MD [address] [place] [address] PCP - General General Internal Medicine 09/06/17 documented as of this encounter
--- OUTSIDE RECORDS SUMMARY | 2024-04-14 02:14 | XMS_ITS | Encounter Summary ---
[place] [address] Care Team Providers Care Engine Designer Name Role Phone Valarie Phillips MD Primary Care Provider [phone] Reason for Referral * Diagnostic Test (Routine) - Closed Specialty Diagnoses / Procedures Referred By Vashti zeng Referred To Contact Radiology Diagnoses Crohn's disease of both small and large intestine with rectal bleeding Procedures MRI Enterography wwo Contrast Bee Tejeda MD [facility] [place] [address] [place] [address] Referral ID Status Reason Start Date Expiration Date V isits Requested Visits Authorized [id number] Closed Specialty Service Requested 04/28/2018 06/26/2018 1 1 Reason for Visit * Diagnostic Test (Routine) - Closed Specialty Diagnoses / Procedures Referred By Vashti zeng Referred To Contact Radiology Diagnoses Crohn's disease of both small and large intestine with rectal bleeding Procedures MRI Enterography wwo Contrast Bee Tejeda MD [facility] [place] [address] [place] [address] Referral ID Status Reason Start Date Expiration Date V isits Requested Visits Authorized [id number] Closed Specialty Service Requested 04/28/2018 06/26/2018 1 1 Encounter Details Date Type Department Care Team (Latest Contact Info) Description 05/03/2018 1:03 PM EST - 05/03/2018 11:59 PM EST Hospital Encounter MRI at [facility] [place] [address] Bee Tejeda MD [facility] [place] [address] Crohn's disease of both small and large [...] Sig Dispensed Refills Start Date End Date lidocaine (XYLOCAINE) 2 % jelly Apply topically 4 times daily as needed. 30 mL 03/04/2018 08/09/2018 calcium carbonate (TUMS) 200 mg calcium (500 mg) Tablet, Chewable Take 1 tablet by mouth 4 times daily as needed. 02/03/2022 PROAIR HFA 90 mcg/actuation HFA Aerosol Inhaler Inhale 2 Inhalation into the lungs every 4 hours as needed. 01/26/2018 07/28/2023 adalimumab 40 mg/0.4 mL Pen Injector Kit Inject 40 mg subcutaneously every 14 days. 3 kit 1 12/09/2017 06/15/2018 acetaminophen (TYLENOL) 325 mg Tablet Take 325 mg by mouth 2 times daily as needed for Pain. 02/02/2024 magnesium citrate SolutionIndications: Patient states she takes one capful every other day. Take by mouth. Indications: Patient states she takes one capful every other day. 02/04/20 22 predniSONE (DELTASONE) 5 mg Tablet 40 mg x 3 days, 30 mg x 1 day, 20 mg x 1 day, 10 mg x 1 day, 5 mg x 1 day 19 tablet 10/29/2017 07/04/2019 NIFEdipine, Bulk, Powder 0.2% ointment apply to [...] PM EDT TH Visit (TeleHealth) [place] [address] Malinda Chrisotpher MD [facility] [place] [address] documented as of this encounter Goals Goal Patient Goal Type Associated Problems Recent Progress Patient-Stated? Author [facility] Medication Compliance and Understanding Patient Facing Action Plan Lakeisha Matos, [facility] Note: Achieve and maintain control of Crohn's symptoms as assessed by specialist every 3 to 6 months or more documented as of this encounter Procedures Procedure Name Priority Date/Time Associated Diagnosis Comments MRI ENTEROGRAPHY WITH/WO CONTRAST Routine 05/03/2018 5:09 PM EST Crohn's disease of both small and large intestine with rectal bleeding documented in this encounter Results * MRI Enterography wwo Contrast (05/03/2018 5:09 PM EST) Anatomical Region Laterality Modality Abdomen Magnetic Resonan ce Impressions 05/04/2018 11:59 AM EST 1. ??10 cm segment of distal descending and sigmoid colon with circumferential wall thickening, luminal narrowing, without mucosal and mural enhancement to suggest active Crohn's disease. 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 ??No new sites of involvement identified. I have personally reviewed the image(s) and the residents interpretation and agree with the findings, Jitendra Walden at 05/04/2018 11:59 AM Thank you for letting us participate in the care of this patient. For questions regarding this report, please contact the number below. ? Narrative 05/04/2018 11:59 AM EST EXAMINATION: MRI ENTEROGRAPHY WWO CONTRAST CLINICAL HISTORY: Ileocolonic CD with left sided abdominal pain. Evaluate for interval worsening of Crohn's disease TECHNIQUE: ??MRI of the abdomen and pelvis was performed with images obtained prior to and following intravenous administration of 12ml of Dotarem. ??0.5mg glucagon was also administered. ??Breeza was administered as an oral contrast. COMPARISON: MR enterography 10/29/2017 FINDINGS: GI tract: Abnormal circumferential wall thickening and luminal narrowing is again seen an approximately 10 cm segment of distal descending and proximal sigmoid colon. However, the previously noted severe mural/transmural enhancement is no longer present (series 14, images 43 through 46). The previously noted adjacent mesenteric hyperemia has resolved. The focal segment of involvement in the mid small bowel seen on the prior study is not identified on today's study. No new sites of involvement identified. Disease location: Distal descending colon and sigmoid colon. # diseased segments: 1 Length of involvement: Approximately 10 cm Imaging appearance: Inflammation: Decreased Stricture: Luminal narrowing Penetrating disease: Decreased Peritoneum/mesentery: Resolved Change from prior: Decreased acute inflammatory change Extra-intestinal findings: Liver: Normal signal, no lesions. Bile ducts: Nondilated. Gallbladder: Not visualized. Pancreas: Normal. Spleen: Normal. Adrenals: Normal. Kidneys: Normal. Lymph nodes: No lymphadenopathy. Reproductive structures: Uterus is not visualized. No adnexal mass. Osseous structures: No marrow signal abnormality. Procedure Note Jitendra Walden MD - 05/04/2018 EXAMINATION: MRI ENTEROGRAPHY WWO CONTRAST CLINICAL HISTORY: Ileocolonic CD with left sided abdominal pain. Evaluatefor interval worsening of Crohn's disease TECHNIQUE: MRI of the abdomen and pelvis was performed with imagesobtained prior to and following intravenous administration of 12ml of Dotarem.0.5mg glucagon was also administered. Breeza was administered as an oralcontrast. COMPARISON: MR enterography 10/29/2017 FINDINGS: GI tract: Abnormal circumferential wall thickening and luminal narrowingis again seen an approximately 10 cm segment of distal descending andproximal sigmoid colon. However, the previously noted severe mural/transmuralenhancement is no longer present (series 14, images 43 through 46). The previouslynoted adjacent mesenteric hyperemia has resolved. The focal segment ofinvolvement in the mid small bowel seen on the prior study is not identified on today'sstudy. No new sites of involvement identified. Disease location: Distal descending colon and sigmoid colon. # diseased segments: 1 Length of involvement: Approximately 10 cm Imaging appearance: Inflammation: Decreased Stricture: Luminal narrowing Penetrating disease: Decreased Peritoneum/mesentery: Resolved Change from prior: Decreased acute inflammatory change Extra-intestinal findings: Liver: Normal signal, no lesions. Bile ducts: Nondilated. Gallbladder: Not visualized. Pancreas: Normal. Spleen: Normal. Adrenals: Normal. Kidneys: Normal. Lymph nodes: No lymphadenopathy. Reproductive structures: Uterus is not visualized. No adnexal mass. Osseous structures: No marrow signal abnormality. IMPRESSION 1. 10 cm segment of distal descending and sigmoid colon withcircumferential wall thickening, luminal narrowing, without mucosal and mural enhancementto suggest active Crohn's disease. Findings more compatible with fibrosingstenotic disease 2. No new sites of involvement identified. I have personally reviewed the image(s) and the residents interpretationand agree with the findings, Jitendra Walden at 05/04/2018 11:59 AM Thank you for letting us participate in the care of this patient. Forquestions regarding this report, please contact the number below. Bee Tejeda MD IMG MRI ORDERABL ES documented in this encounter Visit Diagnoses Diagnosis Crohn's disease of both small and large intestine with rectal bleeding Regional enteritis of small intestine with large intestine documented in this encounter Administered Medications Inactive Administered Medications - up to 3 most recent administrations Medication Order MAR Action Action Date Dose Rate Site gadoterate meglumine (DOTAREM) 0.5 mmol/mL (376.9 mg/mL) injection 0-100 mL 0-100 mL, Intravenous, ONCE PRN, 1 dose, Starting on Thu05/03/18 at 1516, Until Thu05/03/18 at 1649, Per Protocol, Radiology Contrast, Routine Given 05/03/2018 4:49 PM EST 12 mLs documented in this encounter Care Teams Engine Designer Relationship Specialty Start Date End Date Valarie Phililps MD [address] [place] [address] PCP - General General Internal Medicine 09/06/17 documented as of this encounter
--- OUTSIDE RECORDS SUMMARY | 2024-04-14 02:14 | XMS_ITS | Encounter Summary ---
[place] [address] Care Team Providers Care Post Tensioning Ironworker Name Role Phone Valarie Phillips MD Primary Care Provider [phone] Reason for Visit * Surgical (Routine) - Specialty Diagnoses / Procedures Referred By Vashti zeng Referred To Contact Gastroenterology Diagnoses constipation Procedures Fide Luu, [facility] [place] [address] [facility] [address] [place] [address] Referral ID Status Reason Start Date Expiration Date V isits Requested Visits Authorized [id number] 11/05/2018 11/05/2019 1 1 Encounter Details Date Type Department Care Team (Latest Contact Info) Description 11/29/2018 9:00 AM EDT Procedure [place] [address] Constipation, unspecified constipation type Social History Tobacco Use Types Packs/Day Years [...] as of this encounter Progress Notes * Carline Duron RN - 11/29/2018 9:00 AM EDT A description of the anal manometry procedure was provided to the patient. All questions were answered and the patient verbalized understanding. After performing a digital rectal exam, the HRAM probe was placed in the rectum without difficulty and the procedure was performed. After removal of the probe, an anorectal balloon expulsion catheterwas placed in the rectum for continuation of the study and then removed. The patient tolerated the procedure well. * Jesus Alberto Nicolas MD - 11/29/2018 9:00 AM EDT Re: Janice Mahoney Reg No:[id number] : 1960 Date of Service: 11/29/18 ANORECTAL MANOMETRY w/BALLOON EXPULSION Referring provider:Fide Donnelly Dear: Dr. Donnelly We had the pleasure of performing a high resolution anorectal manometry on your patient in the GI Motility Laboratory at [facility]. CLINICAL HISTORY AND INDICATION As you know, she is a 58 y.o. female with complaints of constipation RESULTS Resting sphincter length (>=25mmHg high pressure zone): 4.2 cm Resting sphincter pressure (NL Value: Males 70-100, Females 70-90) : 108 mmHg Max squeeze pressure (NL Value: Males 240-300, Females 160-200) : 200 mmHg Squeeze duration: poor (sustaining at least 50% of the difference between maximum squeeze and resting pressures for fewer than 5 seconds). Rectoanal inhibitory reflex: present at 60 ccs balloon distention Response to coughing: suboptimal (cough elicits a pressure less than double the resting pressure). Response to simulated defecation: normal Type of Dyssynergia: none Response to simulated defecation with 30 cc of air into the balloon: normal Type of Dyssynergia: none Percent of Sphincter Relaxation: 33% Rectal Sensation: Urgency (NL Value: 80-130): 50mL Maximum tolerated (NL Value: 130-200): 90mL Balloon expulsion test (normal expulsion occurs in less than 60 seconds): normal at 26 seconds in seated position IMPRESSION No overall evidence of dyssynergic defecation on anorectal manometry or balloon expulsion test. Resting anal sphincter pressure reflecting internal sphincter function was elevated. Maximum squeeze pressures reflecting external sphincter function were normal. Rectal sensation was hypersensitive. Signed: Jesus Alberto Nicolas MD, ROSSANA Section of Gastroenterology and Hepatology [facility] [place] [address] V: [phone] F: [phone] CC/EC: Valarie Phillips MD [address] [place] [address] documented in this encounter Plan of Treatment Upcoming Encounters Date Type Department Care Team (Late st Contact Info) Description 07/18/2024 1:00 PM EDT TH Visit (TeleHealth) Gastroenterology at [facility] [place] [address] Malinda Christopher MD [facility] [place] [address] documented as of this encounter Goals Goal Patient Goal Type Associated Problems Recent Progress Patient-Stated? Author DH Home Medication Compliance and Understanding Patient Facing Action Plan Lakeisha Matos, [facility] Note: Achieve and maintain control of Crohn's symptoms as assessed by specialist every 3 to 6 months or more documented as of this encounter Visit Diagnoses Diagnosis Constipation, unspecified constipation type documented in this encounter Care Teams Post Tensioning Ironworker Relationship Specialty Start Date End Date Valarie Phillips MD [address] [place] [address] PCP - General General Internal Medicine 09/06/17 documented as of this encounter
--- OUTSIDE RECORDS SUMMARY | 2024-04-14 02:14 | XMS_ITS | Encounter Summary ---
Author Organization [facility] [place] [address] Care Team Providers Care Clinical Athletic Instructor Name Role Phone Valarie Phillips MD Primary Care Provider [phone] Encounter Details Date Type Department Care Team (Late st Contact Info) Description 12/02/2018 Telephone [place] [address] Yarelis Milian Social History Tobacco Use Types [...] * Telephone Encounter - Yarelis Milian - 12/02/2018 3:19 PM EDT Pt returned Megan's call. Megan let me know she would reach out to pt later today. Pt would like to be called on her home number documented in this encounter Plan of Treatment Upcoming Encounters Date Type Department Care Team (Late st Contact Info) Description 07/18/2024 1:00 PM EDT TH Visit (TeleHealth) [place] [address] Malinda Christopher MD [facility] [place] [address] documented as of this encounter Goals Goal [...] on filedocumented in this encounter Care Teams Clinical Athletic Instructor Relationship Specialty Start Date End Date Valarie Phillips MD [address] [place] [address] PCP - General General Internal Medicine 09/06/17 documented as of this encounter
--- OUTSIDE RECORDS SUMMARY | 2024-04-14 02:14 | XMS_ITS | Encounter Summary ---
[place] [address] Care Team Providers Care Diathermy Equipment Repairer Name Role Phone Valarie Phillips MD Primary Care Provider [phone] Encounter Details Date Type Department Care Team (Late st Contact Info) Description 11/23/2018 [place] [address] Daja Samayoa Social History Tobacco Use Types Packs/Day Years [...] encounter Miscellaneous Notes * Telephone Encounter - Daja Samayoa - 11/23/2018 9:52 AM EDT Clinical Management Plan: Refill Specialty Pharmacy Consultation; Daja Samayoa Comprehensive Medication Management (CMM) Janice Mahoney is [...] intolerance: Allergies Allergen Reactions ??? [place] ??? Polyethylene Glycol Analogues Hives Medication Reconciliation Discrepancies (compared to [facility] med list) No New medications: No New medical conditions: No New allergies: No Adherence: Any missed doses? No Are you experiencing any side effects from your medications? No Patient understands no changes to current drug regimen were made.. Daja Samayoa 11/23/18 9:52 AM documented in this encounter Plan of Treatment Upcoming Encounters Date Type Department Care Team (Late st Contact Info) Description 07/18/2024 1:00 PM EDT TH Visit (TeleHealth) [place] [address] Malinda Christopher MD [facility] [place] [address] documented as of this encounter Goals Goal Patient Goal Type Associated Problems Recent Progress Patient-Stated? Author [facility] Medication Compliance and Understanding Patient Facing Action Plan No Lakeisha [place], [facility] Note: Achieve and maintain control of Crohn's symptoms as assessed by specialist every 3 to 6 months or more documented as of this encounter Visit Diagnoses Not on filedocumented in this encounter Care Teams Diathermy Equipment Repairer Relationship Specialty Start Date End Date Valarie Phillips MD [address] [place] [address] PCP - General General Internal Medicine 09/06/17 documented as of this encounter
--- OUTSIDE RECORDS SUMMARY | 2024-04-14 02:14 | XMS_ITS | Encounter Summary ---
[place] [address] Care Team Providers Care Heavy Duty Press Operator Name Role Phone Valarie Phillips MD Primary Care Provider [phone] Reason for Visit * Diagnostic Test (Routine) - Closed Specialty Diagnoses / Procedures Referred By Vashti zeng Referred To Contact Radiology Diagnoses Crohn's disease of both small and large intestine with rectal bleeding Procedures MRI Enterography wwo Contrast Bee Tejeda MD [facility] [place] [address] [facility] [place] [address] Referral ID Status Reason Start Date Expiration Date V isits Requested Visits Authorized [id number] Closed Specialty Service Requested 04/28/2018 06/26/2018 1 1 Encounter Details Date Type Department Care Team (Latest Contact Info) Description 05/03/2018 1:03 PM EST - 05/03/2018 11:59 PM [facility] Hospital [place] [address] Bee Tejeda MD [facility] [place] [address] Discharge Disposition: Home Social History Tobacco Use [...] takes one capful every other day. 02/04/20 predniSONE (DELTASONE) 5 mg Tablet 40 mg [...] Progress Notes * Josey Llanos RN - 05/03/2018 1:06 PM EST MRI PRE-SEDATION ASSESSMENT NOTE NAME: Janice Mahoney AGE: 58 y.o. : 1960 [address] [place] [address] Female [phone] (home) [phone] (work) Telephone Information: Valarie Phillips MD No primary care provider on file. Allergies Allergen Reactions ??? [place] ??? Polyethylene Glycol Analogues Hives Date/Time of call: April 28, 2018/8:43 AM/ PREVIOUS MRI SCAN? Yes, with PO sedation. HEIGHT: 5' WEIGHT: 138 lbs SCHEDULED SCAN: MRI ENTEROGRAPHY WITH/WO CONTRAST [[id number]] (80 min, Feet first; Supine) SUBJECTIVE: Anxiety CAN YOU LAY FLAT? yes AIRWAY ISSUES? no DO YOU HAVE ANY INVOLUNTARY MOVEMENTS? no DO YOU HAVE ANY PAIN? no DO YOU TAKE PAIN MED ON A DAILY BASIS? no ASSESSMENT: appropriate for PO sedation PLAN: NPO 4 hrs prior, starting @1110. ONE pill only. Ativan 1mg ( XXX ) You must have a road driver present when you check in. This patient has been informed that they require a road driver to drive them home after this procedure. In the absence of a road driver, IR will not be able to sedate for your scan. Pt verbalized understanding of these instructions during the pre-procedure education via phone. XXX Yes [place] of road driver: Phone number PRIOR SCAN DATE/S SEDATION TYPE SUCCESSFUL 10/29/2017 MRI Enterography Ativan 1mg PO yes 05/03/18 MRI Enterography Ativan 1 mg po Yes ? Revised 08/04/17 documented in this encounter Plan of Treatment Upcoming Encounters Date Type Department Care Team (Late st Contact Info) Description 07/18/2024 1:00 PM EDT TH Visit (TeleHealth) [place] [address] Malinda Christopher MD [facility] [place] [address] documented as of this encounter Goals Goal [...] number below. Electronically signed by: Jitendra Walden [facility]([phone]), at 05/04/2018 11:59 AM Bee Tejeda MD IMG MRI ORDERABL ES documented in this encounter Visit Diagnoses Not on filedocumented in this encounter Administered Medications Inactive Administered Medications - up to 3 most recent administrations Medication Order MAR Action Action Date Dose Rate Site glucagon (human recombinant) injection SolR 0.5 mg 0.5 mg, Intramuscular, ONCE, 1 dose, On Thu05/03/18 at 1615, Radiology Protocol Medication, Routine Given 05/03/2018 4:16 PM EST 0.5 mg Right Deltoid LORazepam (ATIVAN) tablet 1 mg 1 mg, Oral, ONCE, 1 dose, On Thu05/03/18 at 0815, Angio/IR (Day of Procedure), Routine Given 05/03/2018 2:13 PM EST 1 mg documented in this encounter Care Teams Heavy Duty Press Operator Relationship Specialty Start Date End Date Valarie Phillips MD [address] [place] [address] PCP - General General Internal Medicine 09/06/17 documented as of this encounter
--- OUTSIDE RECORDS SUMMARY | 2024-04-14 02:14 | XMS_ITS | Encounter Summary ---
[place] [address] Care Team Providers Care Principal Consulting Engineer Name Role Phone Valarie Phillips MD Primary Care Provider [phone] Reason for Visit * Reason Onset Date Comments Medication Refill 08/09/2018 Encounter Details Date Type Department Care Team (Late st Contact Info) Description 08/09/2018 Refill [place] [address] Bee Tejeda MD [facility] [place] [address] Social History Tobacco Use Types Packs/Day Years [...] PM EDT TH Visit (TeleHealth) [place] [address] Malinda Christopher MD [facility] [place] [address] documented as of this encounter Goals Goal Patient Goal Type Associated Problems Recent Progress Patient-Stated? Author [facility] Medication Compliance and Understanding Patient Facing Action Plan Lakeisha Matos, [facility] Note: Achieve and maintain control of Crohn's symptoms as assessed by specialist every 3 to 6 months or more documented as of this encounter Visit Diagnoses Not on filedocumented in this encounter Care Teams Principal Consulting Engineer Relationship Specialty Start Date End Date Valarie Phillips MD [address] [place] [address] PCP - General General Internal Medicine 09/06/17 documented as of this encounter
--- OUTSIDE RECORDS SUMMARY | 2024-04-14 02:14 | XMS_ITS | Encounter Summary ---
Author Organization [facility] [place] [address] Care Team Providers Care Direct Care Specialist Name Role Phone Valarie Phillips MD Primary Care Provider [phone] Encounter Details Date Type Department Care Team (Late st Contact Info) Description 01/17/2019 9:00 AM EST Office [place] [address] Fide Donnelly APRN [facility] [place] [address] Crohn's disease of both small and large [...] Sign Reading Time Taken Comments Blood Pressure 132/54 01/17/2019 8:44 AM EST Pulse 71 01/17/2019 8:44 AM EST Temperature - - Respiratory Rate - - Oxygen Saturation - - Inhaled Oxygen Concentration - - Weight 61.8 kg (136 lb 3.2 oz) 01/17/2019 8:44 A M EST Height 151.1 cm (4' 11.5) 01/17/2019 8:44 AM ES T Body Mass Index 27.05 01/17/2019 8:44 AM EST documented in this encounter Progress Notes * Fide Donnelly, ROMULO - 01/17/2019 9:00 AM EST [facility] Division of Gastroenterology and Hepatology Outpatient Follow up ?? Reason for Visit:??Crohn's disease ?? Referred by??Valarie Phillips ?? ID:??Faye Mahoney??is a 58 y.o.??female?with PMH significant for hemorrhoid surgery who is seenin follow up for ??Crohn's disease. ?? Last seen by me on 10/2018. Has seen Dr. Tejeda prior. Interval History: Faye presents for f/u: Crohn's disease, on Humira 40 mg every other week. Feels well. BM once every other day, formed stool. Mild LLQ pain intermitently. Stomach , esophageal discomfort( raw sensation). Sxs improved since she started OTC Prilosec 20 mg once daiy. ??Perianal pain with difficulty passing stools. Her main concern is about her sphincter [...] But she uses Benefiber instead, takes 2 tbs once daily and helps with cosistencies. Also less anal pain since she started Sitz bath. She also reports that she is not constipated. Having bm once every other day. Uses Mag citrate less frequent, recently once every 3-4 days now? Eating well. No n/v No f/c. Weight stable Review of Systems: as above, the rests negative. ? Patient Active Problem List ?? Diagnosis ??? Crohn's disease of colon with complication ? Crohn's Disease: ?? Location:??Colonic??and mid small bowel,??Behavior: Inflammatory?perianal disease in form of skin tags ?? Symptoms: worsening hemorrhoids April 2017 undergoes excisional hemorrhoidectomy that did not heal ?? 10/02/17: Colonoscopy ([facility] [place]) Large perianal inflamed skin tags ??found on [...] 3.66) performed by Moe Smith MD at [facility] END[facility]COPY ??? PRO COLONOSCOPY, DIAGNOSTIC 02/19/2012 COLONOSCOPY, DIAGNOSTIC performed by Nathanael Pyle MD at [facility] END[facility] Social History Socioeconomic History ??? [...] file Gets together: Not on file Attends anglican service: Not on file Active member of [...] History Narrative ??? Not on file Social History:?reports that she has quit smoking. She has never used smokeless tobacco. She reports that she drinks about 3.0 oz of alcohol per week. ?? Family History:??family history includes Cancer in her maternal grandmother and paternal grandmother. Family History Problem Relation Age of Onset ??? Cancer Maternal Grandmother colon ca, uterine ca ??? Cancer Paternal Grandmother colonc ca Vitals: 01/17/19 0844 BP: 132/54 BP Location (NBP): Right arm Patient Position: Sitting BP Cuff Sizes: Adult (25-34 cm) Pulse: 71 Weight: 61.8 kg (136 lb 3.2 oz) Height: 151.1 cm (4' 11.5) Physical Exam Constitutional: She appears well-developed and well-nourished. No distress. Abdominal: Soft. Bowel sounds are normal. She exhibits no distension and no mass. There is tenderness (mild tenderness on LLQ on palpation. Otherwise, the rests soft, non-tender.). There is no rebound and no guarding. Neurological: She is alert. Additional Testing:??Reviewed available labs, imaging and endoscopy results in [facility] as well as Scan Docs tab. ??Results for FAYE MAHONEY ( ) as of 01/14/2019 18:28 Ref. Range 11/05/2018 10:49 WBC Latest Ref Range: 4.0 - 9.5 x10(3)/mcL 6.1 RBC Latest Ref Range: 4.00 - 5.21 x10(6)/mcL 4.20 Hemoglobin Latest Ref Range: 11.7 - 15.5 gm/dL 12.9 Hematocrit Latest Ref Range: 35.7 - 45.8 % 38.7 MCV Latest Ref Range: 82.6 - 94.4 fL 92.1 MCH Latest Ref Range: 27.1 - 32.0 pg 30.7 MCHC Latest Ref Range: 31.7 - 35.0 gm/dL 33.3 RDWSD Latest Ref Range: 37.0 - 46.0 fL 41.1 RDWCV Latest Ref Range: 11.5 - 14.1 % 12.1 Platelets Latest Ref Range: 145 - 357 x10(3)/mcL 254 MPV Latest Ref Range: 7.6 - 12.9 fL 9.2 nRBC % Auto Latest Units: % 0.0 nRBC Abs Auto Latest Ref Range: 0.000 - 0.000 x10(3)/mcL 0.000 Neutr Abs (ANC) Latest Ref Range: 1.70 - 6.10 x10(3)/mcL 2.78 Neutrophils % Latest Units: % 45.8 Immature Gran % Latest Units: % 0.20 Lymphocytes % Latest Units: % 43.6 Monocytes % Latest Units: % 8.9 Eosinophils % Latest Units: % 1.0 Basophils % Latest Units: % 0.5 Ana Gran Abs Latest Ref Range: 0.00 - 0.04 x10(3)/mcL 0.01 Lymphocytes Abs Latest Ref Range: 0.9 - 3.2 x10(3)/mcL 2.6 Monocyte Abs Latest Ref Range: 0.3 - 0.9 x10(3)/mcL 0.5 Eosinophils Abs Latest Ref Range: 0.0 - 0.4 x10(3)/mcL 0.1 Basophils Abs Latest Ref Range: 0.0 - 0.1 x10(3)/mcL 0.0 Sed Rate Latest Ref Range: 0 - 20 mm/hr 8 Sodium Latest Ref Range: 135 - 145 mmol/L 141 Potassium Latest Ref Range: 3.5 - 5.0 mmol/L 4.5 Chloride Latest Ref Range: 98 - 107 mmol/L 104 CO2 Latest Ref Range: 22 - 31 mmol/L 28 Anion Gap Latest Ref Range: 5 - 15 mmol/L 9 BUN Latest Ref Range: 8 - 18 mg/dL 18 Creatinine Latest Ref Range: 0.70 - 1.20 mg/dL 0.72 eGFR Latest Ref Range: >=60 mL/min/1.73 m?? 92 eGFR Latest Ref Range: >=60 mL/min/1.73 m?? 106 Glucose Lvl Latest Ref Range: 65 - 199 mg/dL 105 Calcium Latest Ref Range: 8.5 - 10.5 mg/dL 9.0 Total Protein Latest Ref Range: 6.1 - 8.0 gm/dL 7.7 Albumin Latest Ref Range: 3.2 - 5.2 gm/dL 4.4 Total Bilirubin Latest Ref Range: 0.2 - 1.3 mg/dL <0.2 (L) Alk Phos Latest Ref Range: 35 - 105 unit/L 76 AST Latest Ref Range: 0 - 30 unit/L 22 ALT Latest Ref Range: 0 - 30 unit/L 25 CRP Latest Ref Range: <=4.9 mg/L 1.8 Anorectal manometry: ??IMPRESSION?? No overall evidence of dyssynergic defecation on anorectal manometry or balloon expulsion test. ?? Resting anal sphincter pressure reflecting internal sphincter function was??elevated. Maximum squeeze pressures reflecting external sphincter function were??normal. ?? Rectal sensation was??hypersensitive. IMPRESSION/PLANS:??Faye L Mahoney??is a 58 y.o.?with PMH significant for hemorrhoidectomy with ileocolonic Crohn's disease presents for f/u on these issues: 1. Crohn's disease, on Humira 40 mg every other week. Feeling better. 2. Stomach , esophageal discomfort( raw sensation). Sxs improved since she started OTC Prilosec 20 mg once daiy. Will stay on this for now. ??3. Perianal pain with difficulty passing stools. Symptoms improving on Benefiber and Sitz bath. Uses Mag Citrate as needed if she has not moved her bowels for 4 days. I told her that Mag Citrate is not good for chronic use and recommend Miralax instead but she reports allergic to miralax. 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 RECOMMENDATIONS: - Labs today and surveillance ( CBC, LFTS, CRP) Q 4 months - Continue Humira 40 mg every other week. - Continue Prilosec OTC 20 mg once daily - Continue??Mag citrate as needed for now. If able to take Miralax will try Miralax instead and adjust dose to effect - Continue Benefiber and Sitz bath - Colonoscopy due 09/2019 and will add EGD. Will schedule at next visit ?? For patients who have received one dose of PPSV23 # Administer PCV13 (Prevnar) >1 year after having received PPSV23 (Pneumovax) # Next dose of PPSV23 (Pneumovax) should be given >5 years after first dose, and >8 weeks after PCV13 (Prevnar) F/U with Dr. Christopher as planned ? documented in this encounter Plan of Treatment Upcoming Encounters Date Type Department Care Team (Late st Contact Info) Description 07/18/2024 1:00 PM EDT TH Visit (TeleHealth) [place] [address] Malinda Christopher MD [facility] [place] [address] documented as of this encounter Goals Goal [...] Associated Diagnosis Comments HC C-REACTIVE PROTEIN Routine 01/17/2019 9:54 AM EST Crohn's disease of both small and large intestine with rectal bleeding HEMOGRAM Routine 01/17/2019 9:54 AM EST Crohn's disease of both small and large intestine with rectal bleeding DIFFERENTIAL, AUTOMATED Routine 01/17/2019 9:54 AM EST Crohn's disease of both small and large intestine with rectal bleeding CBC,PLT & AUTO DIFF Routine 01/17/2019 9:54 AM EST Crohn's disease of both small and large intestine with rectal bleeding HEPATIC FUNCTION PANEL Routine 01/17/2019 9:54 AM EST Crohn's disease of both small and large intestine with rectal bleeding documented in this encounter Results * Differential, Automated (01/17/2019 9:54 AM EST) Neutrophil % 51.3 % [facility] Neutrophil Absolute 3.11 1.70 - 6.10 x10(3)/[facility] Lymph % 38.9 % [facility] Lymphocytes Abs 2.4 0.9 - 3.2 x10(3)/[facility] Monocyte % 7.2 % [facility] Monocyte Abs 0.4 0.3 - 0.9 x10(3)/[facility] Eos % 1.6 % [facility] Eosinophils Abs 0.1 0.0 - 0.4 x10(3)/[facility] Basophil % 0.7 % [facility] Baso Absolute 0.0 0.0 - 0.1 x10(3)/[facility] Immature Gran % 0.30 % [facility] Comment: Immature granulocytes(IG's)percentage and absolute count will include metamyelocytes, myelocytes, and promyelocytes. Blood smears from CBCs yielding IG's will be scanned manually for concordance. If this scan disagrees with the automated IG or if promyelocytes are noted, a manual differential will be performed. Immature Gran Absolute 0.02 0.00 - 0.04 x10(3)/[facility] Blood specimen (specimen) 01/17/2019 9:54 AM EST 01/17/2019 9:54 AM EST Narrative Resulting Agency Comment Spec In Lab Fide Gil Jeffery Donnelly [employer] [facility]AT[facility] ORDERA BLES [facility] [place] [address] * Hemogram (01/17/2019 9:54 AM EST) [facility] White Blood Cell 6.1 4.0 - 9.5 x10(3)/[facility] Red Blood Cell 4.39 4.00 - 5.21 x10(6)/[facility] Hemoglobin 13.1 11.7 - 15.5 gm/dL [facility] Hematocrit 39.9 35.7 - 45.8 % [facility] Mean Cell Volume 90.9 82.6 - 94.4 fL [facility] Mean Cell Hemoglobin 29.8 27.1 - 32.0 pg [facility] Mean Cell Hemoglobin Concentration 32.8 31.7 - 35.0 gm/dL [facility] Platelet 274 145 - 357 x10(3)/[facility] RDW Standard Deviation 40.0 37.0 - 46.0 [facility] RDW coefficient of variation 11.9 11.5 - 14.1 % [facility] Mean Platelet Volume 9.2 7.6 - 12.9 fL [facility] NRBC% auto 0.0 % [facility] NRBC Absolute 0.000 0.000 - 0.000 x10(3)/[facility] Blood specimen (specimen) 01/17/2019 9:54 AM EST 01/17/2019 9:54 AM EST Narrative Resulting Agency Comment Spec In Lab Fide Mcchris [employer] [facility] ORDERA BLES [facility] [place] [address] * CRP, acute inflammation (01/17/2019 9:54 AM EST) [facility] C-Reactive Protein 1.3 <=4.9 mg/L [facility] Blood specimen (specimen) 01/17/2019 9:54 AM EST 01/17/2019 9:54 AM EST Narrative Resulting Agency Comment Spec In Lab Fide Donnelly [employer] CHEMISTRY ORDERAB LES Performing Organization Address City/[facility]/ZIP Co de Phone Number [facility] [place] [address] * Hepatic Function Panel (01/17/2019 9:54 AM EST) Protein, Total 7.6 6.1 - 8.0 gm/dL [facility] Albumin 4.4 3.2 - 5.2 gm/dL [facility] Aspartate Aminotransferase 18 0 - 30 unit/L [facility] Alanine Aminotransferase 19 0 - 30 unit/L [facility] Alkaline Phosphatase 77 35 - 105 unit/L [facility] Bilirubin, Total 0.3 0.2 - 1.3 mg/dL [facility] Bilirubin, Direct 0.1 0.0 - 0.3 mg/dL [facility] Blood specimen (specimen) 01/17/2019 9:54 AM EST 01/17/2019 9:54 AM EST Narrative Resulting Agency Comment Spec In Lab Fide Donnelly [employer] CHEMISTRY ORDERAB LES Performing Organization Address City/[facility] Co de Phone Number [facility] [place] [address] documented in this encounter Visit Diagnoses Diagnosis Crohn's disease of both small and large intestine with rectal bleeding Regional enteritis of small intestine with large intestine documented in this encounter Care Teams Direct Care Specialist Relationship Specialty Start Date End Date Valarie Phillips MD [address] [place] [address] PCP - General General Internal Medicine 09/06/17 documented as of this encounter
--- OUTSIDE RECORDS SUMMARY | 2024-04-14 02:14 | XMS_ITS | Encounter Summary ---
Author Organization [facility] [place] [address] Care Team Providers Care Fatback Trimmer Name Role Phone Valarie Phillips MD Primary Care Provider [phone] Reason for Visit * Reason Comments Medication Management Encounter Details Date Type Department Care Team (Late st Contact Info) Description 07/07/2018 Specialty [place] [address] Isma Underwood Lacy Social History Tobacco Use [...] Progress Notes * Isma Underwood RPH - 07/07/2018 1:03 PM EDT Clinical Management Plan: Refill Specialty [...] and Drug intolerance: Allergies Allergen Reactions ??? [place] ??? Polyethylene Glycol Analogues Hives Medication Reconciliation Discrepancies (compared to [facility] med list) - none New medications: [...] review and follow up. Isma Underwood RPH 07/07/18 1:03 PM documented in this encounter Plan of Treatment Upcoming Encounters Date Type Department Care Team (Late st Contact Info) Description 07/18/2024 1:00 PM EDT TH Visit (TeleHealth) [place] [address] Malinda Christopher MD [facility] [place] [address] documented as of this encounter Goals Goal Patient Goal Type Associated Problems Recent Progress Patient-Stated? Author [facility] Medication Compliance and Understanding Patient Facing Action Plan Lakeisha Matos [facility] Note: Achieve and maintain control of Crohn's symptoms as assessed by specialist every 3 to 6 months or more documented as of this encounter Visit Diagnoses Not on filedocumented in this encounter Care Teams Fatback Trimmer Relationship Specialty Start Date End Date Valarie Phillips MD [address] [place] [address] PCP - General General Internal Medicine 09/06/17 documented as of this encounter
--- OUTSIDE RECORDS SUMMARY | 2024-04-14 02:14 | XMS_ITS | Encounter Summary ---
Author Organization [facility] [place] [address] Care Team Providers Care Security Auditor Name Role Phone Valarie Phillips MD Primary Care Provider [phone] Reason for Visit * Reason Comments Medication Refill Encounter Details Date Type Department Care Team (Late st Contact Info) Description 02/19/2018 Specialty [place] [address] Maria E Mishra [facility] Social History Tobacco [...] as of this encounter Progress Notes * Maria E Hess RPH - 02/19/2018 3:37 PM EST Clinical Management Plan: Refill Specialty Pharmacy Consultation; Maria E Hess [facility] Comprehensive Medication Management (CMM) Janice Mahoney is a 57 y.o. (1960) female who called in a refill for their specialty prescription, Humira , before a refill reminder was needed from [facility]. The medication was refilled on 02/22/18 for a 28 day supply for $0 copay. Adherence: Gaps in fill history: none Was a change made to the Care Plan: no If yes, should the medication be held: No The specialty pharmacy staff will follow up with the patient 7 days prior to next refill for reminder if needed. Maria E Hess RPH 02/19/18 3:46 PM documented in this encounter Plan of Treatment Upcoming Encounters Date Type Department Care Team (Late st Contact Info) Description 07/18/2024 1:00 PM EDT TH Visit (TeleHealth) [place] [address] Malinda Christopher MD [facility] [place] [address] documented as of this encounter Goals Goal [...] on filedocumented in this encounter Care Teams Security Auditor Relationship Specialty Start Date End Date Valarie Phillips MD [address] [place] [address] PCP - General General Internal Medicine 09/06/17 documented as of this encounter
--- OUTSIDE RECORDS SUMMARY | 2024-04-14 02:14 | XMS_ITS | Encounter Summary ---
Author Organization [facility] [place] [address] Care Team Providers Care .Net Developer Name Role Phone Valarie Phillips MD Primary Care Provider [phone] Reason for Visit * Reason Onset Date Comments Medication Refill 11/05/2017 Encounter Details Date Type Department Care Team (Late st Contact Info) Description 11/05/2017 [place] [address] Meme Garza RN Social History Tobacco Use [...] PM EDT TH Visit (TeleHealth) [place] [phone] Malinda Christopher MD [facility] [place] [place] [address] documented as of this encounter Goals Goal Patient Goal Type Associated Problems Recent Progress Patient-Stated? Author [facility] Medication Compliance and Understanding Patient Facing Action Plan Lakeisha Matos, [facility] Note: Achieve and maintain control of Crohn's symptoms as assessed by specialist every 3 to 6 months or more documented as of this encounter Visit Diagnoses Not on filedocumented in this encounter Care Teams .Net Developer Relationship Specialty Start Date End Date Valarie Phillips MD [address] [place] [address] PCP - General General Internal Medicine 09/06/17 documented as of this encounter
--- OUTSIDE RECORDS SUMMARY | 2024-04-14 02:14 | XMS_ITS | Encounter Summary ---
Author Organization Formerly [facility] [place] [address] Care Team Providers Care Cognos Analyst Name Role Phone Valarie Phillips MD Primary Care Provider [phone] Encounter Details Date Type Department Care Team (Late st Contact Info) Description 12/09/2017 8:00 AM EDT Office Visit Gastroenterology at [facility] [place] [address] [facility] [place] [address] Crohn's disease of large intestine with rectal bleeding; Crohn's disease of large intestine without complication [...] Sign Reading Time Taken Comments Blood Pressure 109/46 12/09/2017 8:02 AM EDT Pulse 75 12/09/2017 8:02 AM EDT Temperature - - Respiratory Rate - - Oxygen Saturation - - Inhaled Oxygen Concentration - - Weight 59.6 kg (131 lb 8 oz) 12/09/2017 8:02 AM EDT Height 152.4 cm (5') 12/09/2017 8:02 AM EDT Body Mass Index 25.68 12/09/2017 8:02 AM EDT documented in this encounter Progress Notes * Bee Tejeda MD - 12/09/2017 8:00 AM EDT [facility] Division of Gastroenterology and Hepatology Outpatient Consultation Reason for Visit: ?Crohn's disease Referred by Valarie Phillips ID: Janice Mahoney is a 57 y.o. female with PMH significant for hemorrhoid surgery who is seen in consultation for new diagnosis of Crohn's disease. Interval History: Left sided abdominal pain is almost completely gone. Much improved from before Rectum is still swollen and sore, but overall much improved She feels like she has to strain for bowel movement. She take MagCitrate a couple of ounces every night. Her humira is contributing to improvement. She still has lidocaine gel. She uses it rarely when she has bowel movement. Review of Systems: Constitutional: weight stabilitized HEENT: No visual changes, URI symptoms Cardio: No chest pain Resp: no SOB Hem/Lymph: no new lumps or bumps on body GI: see HPI : no dysuria Skin: no new rashes Musculoskeletal: longstanding joint pains Neuro: no new numbness, weakness in extremities All other systems negative except as above in HPI GI Problem List: Crohn's Colitis: ?? Location: Colonic and mid small bowel, Behavior: Inflammatory perianal disease in form of skin tags ?? Symptoms: worsening hemorrhoids April 2017 undergoes excisional hemorrhoidectomy that did not heal ?? 10/02/17: Colonoscopy ([facility] [place] [place]) Large perianal inflamed skin tags ??found [...] the colonic segment ?? Started Humira: End Oct 2017 Patient Active Problem List Diagnosis ??? Anal pain ??? Clotting disorder Protein [...] 3.66) performed by Moe Smith MD at [facility] ??? PRO COLONOSCOPY, DIAGNOSTIC 02/19/2012 COLONOSCOPY, DIAGNOSTIC performed by Nathanael Pyle MD at [facility] Social History: reports that she has quit smoking. She has never used smokeless tobacco. She reports that she drinks about 3.0 oz of alcohol per week Family History: family history includes Cancer in her maternal grandmother and paternal grandmother. Current Outpatient Prescriptions Medication Sig Dispense Refill [...] Take 1 capsule by mouth daily. ??? docusate sodium (COLACE ORAL) Take by [...] Reported on 12/09/2017) 30 mL 0 ??? DILTIAZEM HCL, BULK, MISC by Misc.(Non-Drug; Combo Route) route. Gel ??? ibuprofen (ADVIL;MOTRIN) 200 mg Tablet Take 200 mg by mouth. ??? calcium carbonate (TUMS) 200 mg calcium (500 mg) Tablet, Chewable Take by mouth. ??? acyclovir (ZOVIRAX) 200 mg Capsule ??? Guar Gum Packet Take by mouth. No current facility-administered medications for this visit. Allergies Allergen Reactions ??? [place] ??? Polyethylene Glycol Analogues Hives Physical Examination: BP 109/46 Pulse 75 Ht 152.4 cm (5') Wt 59.6 kg (131 lb 8 oz) BMI 25.68 kg/m2 General:Pleasant, cooperative, NAD HEENT: NC/AT, MMM Eyes: anicteric sclera Neck: soft, supple Resp: CTAB, no wheeze, rale or rhonchi CVS:RRR, normal s1/s2, No MRG ABD: soft, NABS, NT/ND Rectal: Large waxy skin tags. Extremities: No clubbing, cynanosis or edema Skin:No rashes Neuro: Grossly non-focal. Psych: Normal mood Labs: Reviewed in EDH/Scan Docs Lab Results Component Value Date WBC 6.8 10/14/2017 HGB 11.6 (L) 10/14/2017 HCT 34.6 (L) 10/14/2017 MCV 90.1 10/14/2017 PLATELET 377 (H) 10/14/2017 Chemistry Component Value Date/Time NA 140 10/14/2017 0916 K 4.5 10/14/2017 0916 CL 99 10/14/2017 0916 CO2 25 10/14/2017 0916 BUN 10 10/14/2017 0916 CREATININE 0.64 (L) 10/14/2017 0916 Component Value Date/Time CALCIUM 9.0 10/14/2017 0916 ALKPHOS 98 10/14/2017 0916 AST 16 10/14/2017 0916 ALT 14 10/14/2017 0916 BILITOT 0.2 10/14/2017 0916 Lab Results Component Value Date ALT 14 10/14/2017 AST 16 10/14/2017 ALKPHOS 98 10/14/2017 BILITOT 0.2 10/14/2017 Additional Testing: Reviewed available labs, imaging and endoscopy results in EDH/CIS as well as Scan Docs tab. IMPRESSION: Janice Mahoney is a 57 y.o. with PMH significant for hemorrhoidectomy who is seen in follow up for ileocolonic Crohn's. Since starting Humira, she is feeling better all around, the left lower quadrant abdominal pain that she was having is almost completely gone. While she still does have perianal discomfort, it is much improved from our last visit. We discussed that it is challenging to know whether or not this willcompletely resolve, I suspect that she will always have some level of discomfort, but I am hopeful that continuing with Humira will continue to improve some of it. We discussed proactive drug monitoring and will plan on sending a Humira level today. RECOMMENDATIONS: # CBC, CMP, CRP, 3 times per year # Continue Humira 40 mg every other week. She would like to attempt the citrate free version with her next refill #Humira level today Follow up in 3 months. 20 minutes of this 30 minute [id number] encounter were spent counseling the patient in medical issues described above. Bee Tejeda [place] [address] P: [phone] F: [phone] documented in this encounter Miscellaneous Notes * Addendum Note - Ayana Garcia - 12/09/2017 8:43 AM EDTAddended by: AYANA GARCIA on: 12/09/2017 08:43 AM Modules accepted: Orders documented in this encounter Plan of Treatment Upcoming Encounters Date Type Department Care Team (Late st Contact Info) Description 07/18/2024 1:00 PM EDT TH Visit (TeleHealth) [place] [address] Malinda Christopher MD [facility] [place] [address] documented as of this encounter Goals Goal Patient Goal Type Associated Problems Recent Progress Patient-Stated? Author DH [place] Medication Compliance and Understanding Patient Facing Action Plan Lakeisha Matos, [facility] Note: Achieve and maintain control of Crohn's symptoms as assessed by specialist every 3 to 6 months or more documented as of this encounter Procedures Procedure Name Priority Date/Time Associated Diagnosis Comments CRP, ACUTE INFLAMMATION Routine 12/09/2017 8:49 AM EDT Crohn's disease of large intestine without complication HEMOGRAM Routine 12/09/2017 8:49 AM EDT Crohn's disease of large intestine without complication DIFFERENTIAL, AUTOMATED Routine 12/09/2017 8:49 AM EDT Crohn's disease of large intestine without complication CBC (WITH DIFF) Routine 12/09/2017 8:49 AM EDT Crohn's disease of large intestine without complication HEPATIC FUNCTION PANEL Routine 12/09/2017 8:49 AM EDT Crohn's disease of large intestine without complication documented in this encounter Results * Differential, Automated (12/09/2017 8:49 AM EDT) Neutrophil % 60.0 % [facility] Neutrophil Absolute 3.91 1.70 - 6.10 x10(3)/[facility] Lymph % 27.5 % [facility] Lymphocytes Abs 1.8 0.9 - 3.2 x10(3)/[facility] Monocyte % 10.0 % [facility] Monocyte Abs 0.6 0.3 - 0.9 x10(3)/[facility] Eos % 1.5 % [facility] Eosinophils Abs 0.1 0.0 - 0.4 x10(3)/[facility] Basophil % 0.8 % [facility] Baso Absolute 0.0 0.0 - 0.1 x10(3)/[facility] Immature Gran % 0.20 % [facility] Comment: Immature granulocytes(IG's)percentage and absolute count will include metamyelocytes, myelocytes, and promyelocytes. Blood smears from CBCs yielding IG's will be scanned manually for concordance. If this scan disagrees with the automated IG or if promyelocytes are noted, a manual differential will be performed. Immature Gran Absolute 0.01 0.00 - 0.04 x10(3)/[facility] Blood specimen (specimen) 12/09/2017 8:49 AM EDT 12/09/2017 8:52 AM EDT Narrative Resulting Agency Comment Spec In Lab Bee Tejeda MD HEMATOLOGY ORDER RAFFI [facility] [place] [address] * Hemogram (12/09/2017 8:49 AM EDT) White Blood Cell 6.5 4.0 - 9.5 x10(3)/[facility] Red Blood Cell 4.30 4.00 - 5.21 x10(6)/[facility] Hemoglobin 12.7 11.7 - 15.5 gm/dL [facility] Hematocrit 39.0 35.7 - 45.8 % [facility] Mean Cell Volume 90.7 82.6 - 94.4 fL [facility] Mean Cell Hemoglobin 29.5 27.1 - 32.0 pg [facility] Mean Cell Hemoglobin Concentration 32.6 31.7 - 35.0 gm/dL [facility] Platelet 282 145 - 357 x10(3)/[facility] RDW Standard Deviation 43.6 37.0 - 46.0 [facility] RDW coefficient of variation 13.2 11.5 - 14.1 % [facility] Mean Platelet Volume 8.8 7.6 - 12.9 [facility] NRBC% auto 0.0 % [facility] NRBC Absolute 0.000 0.000 - 0.000 x10(3)/[facility] Blood specimen (specimen) 12/09/2017 8:49 AM EDT 12/09/2017 8:52 AM EDT Narrative Resulting Agency Comment Spec In Lab Bee Tejeda MD HEMATOLOGY ORDER RAFFI Performing Organization Address [facility]/ZIP Co de Phone Number [facility] [place] [address] * Hepatic Function Panel (12/09/2017 8:49 AM EDT) Protein, Total 7.3 6.1 - 8.0 gm/dL [facility] Albumin 4.1 3.2 - 5.2 gm/dL [facility] Aspartate Aminotransferase 20 0 - 30 unit/L [facility] Alanine Aminotransferase 18 0 - 30 unit/L [facility] Alkaline Phosphatase 87 40 - 104 unit/L [facility] Bilirubin, Total 0.3 0.2 - 1.3 mg/dL [facility] Bilirubin, Direct 0.1 0.0 - 0.3 mg/dL [facility] Blood specimen (specimen) 12/09/2017 8:49 AM EDT 12/09/2017 8:52 AM EDT Narrative Resulting Agency Comment Spec In Lab Bee Tejeda MD CHEMISTRY ORDERA BLES Performing Organization Address [facility] Co de Phone Number [facility] [place] [address] * CRP, acute inflammation (12/09/2017 8:49 AM EDT) C-Reactive Protein 1.0 <=4.9 mg/L [facility] Blood specimen (specimen) 12/09/2017 8:49 AM EDT 12/09/2017 8:52 AM EDT Narrative Resulting Agency Comment Spec In Lab Bee Tejeda MD CHEMISTRY ORDERA BLES Performing Organization Address [facility] Co de Phone Number [facility] [place] [address] documented in this encounter Visit Diagnoses Diagnosis Crohn's disease of large intestine with rectal bleeding Regional enteritis of large intestine Crohn's disease of large intestine without complication Regional enteritis of large intestine documented in this encounter Care Teams Cognos Analyst Relationship Specialty Start Date End Date Valarie Phillips MD [address] [place] [address] PCP - General General Internal Medicine 09/06/17 documented as of this encounter
--- OUTSIDE RECORDS SUMMARY | 2024-04-14 02:14 | XMS_ITS | Encounter Summary ---
Author Organization Formerly [facility] [place] [address] Care Team Providers Care Gun Perforator Loader Name Role Phone Valarie Phillips MD Primary Care Provider [phone] Reason for Visit * Reason Comments Medication Management Encounter Details Date Type Department Care Team (Late st Contact Info) Description 05/14/2018 Specialty Pharmacy Gastroenterology at [facility] [place] [address] [facility] Social History [...] this encounter Progress Notes * Lakeisha Meyer [facility] - 05/14/2018 12:27 PM EST Clinical Management Plan: Refill of Humira Specialty Pharmacy Consultation; Lakeisha Meyer [facility] Comprehensive Medication Management (CMM) Janice Petty [...] beneficiary Provider: plan sponsor pharmacist Visit Type: Misc Follow-up Method of Contact: by telephone Cognitive Ability: good Cognitive Impairment Status Verified this Year: no Allergies and Drug intolerance: Allergies Allergen Reactions ??? [place] ??? Polyethylene Glycol Analogues Hives Medication Reconciliation Discrepancies (compared to [facility] med list) -none New medications: no New [...] were made at the appointment and that [facility] is providing recommendations (summary located at top of note) for provider review and follow up. Lakeisha Meyer RPH 05/14/18 12:28 PM documented in this encounter Plan of Treatment Upcoming Encounters Date Type Department Care Team (Late st Contact Info) Description 07/18/2024 1:00 PM EDT TH Visit (TeleHealth) [place] [address] Malinda Christopher MD [facility] [place] [address] documented as of this encounter Goals Goal Patient Goal Type Associated Problems Recent Progress Patient-Stated? Author DH [place] Medication Compliance and Understanding Patient Facing Action Plan No Lakeisha Kent RPH Note: Achieve and maintain control of Crohn's symptoms as assessed by specialist every 3 to 6 months or more documented as of this encounter Visit Diagnoses Not on filedocumented in this encounter Care Teams Gun Perforator Loader Relationship Specialty Start Date End Date Valarie Phillips MD [address] [place] [address] PCP - General General Internal Medicine 09/06/17 documented as of this encounter
--- OUTSIDE RECORDS SUMMARY | 2024-04-14 02:14 | XMS_ITS | Encounter Summary ---
[place] [address] Care Team Providers Care Missile Technician Name Role Phone Valarie Phillips MD Primary Care Provider [phone] Encounter Details Date Type Department Care Team (Late st Contact Info) Description 11/23/2018 Refill [place] [address] Bee Tejeda MD [facility] [place] [address] Social History Tobacco Use Types Packs/Day Years [...] PM EDT TH Visit (TeleHealth) [place] [address] Malinda Christopher MD [facility] [place] [address] documented as of this encounter Goals Goal Patient Goal Type Associated Problems Recent Progress Patient-Stated? Author [facility] Medication Compliance and Understanding Patient Facing Action Plan Lakeisha Matos, [facility] Note: Achieve and maintain control of Crohn's symptoms as assessed by specialist every 3 to 6 months or more documented as of this encounter Visit Diagnoses Not on filedocumented in this encounter Care Teams Missile Technician Relationship Specialty Start Date End Date Valarie Phillips MD [address] [place] [address] PCP - General General Internal Medicine 09/06/17 documented as of this encounter
--- OUTSIDE RECORDS SUMMARY | 2024-04-14 02:14 | XMS_ITS | Encounter Summary ---
Author Organization [facility] [place] [address] Care Team Providers Care Extension Service Advisor Name Role Phone Valarie Phillips MD Primary Care Provider [phone] Reason for Visit * Reason Onset Date Comments Medication Refill 11/10/2017 Encounter Details Date Type Department Care Team (Late st Contact Info) Description 11/10/2017 Refill [place] [address] Meme Garza RN Social History Tobacco Use [...] PM EDT TH Visit (TeleHealth) [place] [phone] Malinda Christopher MD [facility] [place] [address] documented as of this encounter Goals Goal [...] on filedocumented in this encounter Care Teams Extension Service Advisor Relationship Specialty Start Date End Date Valarie Phillips MD [address] [place] [address] PCP - General General Internal Medicine 09/06/17 documented as of this encounter
--- OUTSIDE RECORDS SUMMARY | 2024-04-14 02:14 | XMS_ITS | Encounter Summary ---
[place] [address] Care Team Providers Care Automobile Radio Repairer Name Role Phone Valarie Phillips MD Primary Care Provider [phone] Reason for Referral * Diagnostic Test (Routine) - Closed Specialty Diagnoses / Procedures Referred By Vashti zeng Referred To Contact Radiology Diagnoses Crohn's disease of both small and large intestine with rectal bleeding Procedures MRI Enterography wwo Contrast Bee Tejeda MD [facility] [place] [address] [place] [address] Referral ID Status Reason Start Date Expiration Date V isits Requested Visits Authorized [id number] Closed Specialty Service Requested 04/28/2018 06/26/2018 1 1 Reason for Visit * Reason Comments Follow-up Encounter Details Date Type Department Care Team (Late st Contact Info) Description 04/28/2018 8:00 AM EST Office [place] [address] Bee Tejeda MD [facility] [place] [address] Crohn's disease of both small and large [...] Sign Reading Time Taken Comments Blood Pressure 116/53 04/28/2018 7:55 AM EST Pulse 84 04/28/2018 7:55 AM EST Temperature - - Respiratory Rate - - Oxygen Saturation - - Inhaled Oxygen Concentration - - Weight 62.8 kg (138 lb 6.4 oz) 04/28/2018 7:55 A M EST Height 152.4 cm (5') 04/28/2018 7:55 AM EST Body Mass Index 27.03 04/28/2018 7:55 AM EST documented in this encounter Patient Instructions * Patient Instructions* Bee Tejeda MD - 04/28/2018 8:00 AM EST # Letter for traveling with Humira, you can find it on [facility] # Labs today CBC, Liver tests, CRP, and Humira level # Labs every 4 months, next would be in August # MRI of the intestines given lower left abdominal pain # Pneumonia shot (Prevnar) in January 2019 documented in this encounter Progress Notes * Bee Tejeda MD - 04/28/2018 8:00 AM EST [facility] Division of Gastroenterology and Hepatology Outpatient Follow up Reason for Visit: ?Crohn's disease Referred by Valarie Phillips ID: Janice Mahoney is a 58 y.o. female with PMH significant for hemorrhoid surgery who is seen in follow up for Crohn's disease. Interval History: She has a bowel movement every day. She has a little bit of bleeding and also has the same level ofpain. Certainly not completely normal. She is using magnesium citrate when she needs to be using it. She is having a little more left sided abdominal pain. This occurs typically right before her next dose of Humira. She has not had any major infections since starting Humira. She had a minor URI. She has had knee and hip pain more lately as well. She is active swimming every other day. Review of Systems: Constitutional: no weight loss [...] that did not heal ?? 10/02/17[place] [place] Large perianal inflamed skin [...] 12.8, no antibodies on every two week [facility] Health Maintenance: ?? 10/19/17 TB - Quant [...] 3.66) performed by Moe Smith MD at [facility] ENDOSCOPY ??? PRO COLONOSCOPY, DIAGNOSTIC 02/19/2012 COLONOSCOPY, DIAGNOSTIC performed by Nathanael Pyle MD at [facility] ENDOSCOPY Social History: reports that she has [...] mouth 2 times daily as needed. ??? adalimumab 40 mg/0.4 mL Pen Injector [...] for this visit. Allergies Allergen Reactions ??? [place] ??? Polyethylene Glycol Analogues Hives Physical Examination: BP 116/53 Pulse 84 Ht 152.4 cm (5') Wt 62.8 kg (138 lb 6.4 oz) BMI 27.03 kg/m?? General:Pleasant, cooperative, NAD HEENT: NC/AT, MMM [...] 40 mg every other week. She is noticed that the left-sided abdominal discomfort and hip/knee pain that initially improved with Humira is starting to return, particularlyshe notices her symptoms prior to a Humira injection being due. I wonder if she is beginning to have a loss of response to her Humira and therefore we will check a Humira level and repeat a MRE givenher mid small bowel disease and potentially increase her Humira to every week based on these results. We also discussed pneumonia vaccination. From our records, it appears that Janice had a Pneumovax vaccination in January 2018 and therefore is due for Prevnar in January 2019. She received her first Shingrix shot in January 2018 and is due now. She is waiting for her pharmacy to get the shot as it is on back order. I reviewed with her that she needs the second dose of Shingrix between 2- 6 months after her first dose otherwise she would need to restart the series all over again. She also asks about probiotics. I typically recommend yogurt and keep her to help with improving gut mark as probiotics are not FDA regulated. However, if they make her feel better than she should attempt. Lastly she was traveling in May 08 [place] and [place]. We reviewed that Humira can be out of the refrigerator for up to 14 days. I will write her a letter for traveling with Humira on a plane. Additionally talked about the importance of hand hygiene while traveling. RECOMMENDATIONS: # MRE # Labs today including Humira level, B12 level, CBC, liver tests, CRP # Labs every 4 months # Continue Humira 40 mg every other week. # Continue Benefiber # Prevnar due in Jan 2019 Follow up in 4 months. 20 minutes of this 30 minute geiq-pu-fqln encounter were spent counseling the patient in medical issues described above. [place] [address] P: [phone] F: [phone] documented in this encounter Plan of Treatment Upcoming Encounters Date Type Department Care Team (Late st Contact Info) Description 07/18/2024 1:00 PM EDT TH Visit (TeleHealth) [place] [address] Malinda Christopher MD [facility] [place] [address] documented as of this encounter Goals Goal Patient Goal Type Associated Problems Recent Progress Patient-Stated? Author [facility] Medication Compliance and Understanding Patient Facing Action Plan Lakeisha Matos, [facility] Note: Achieve and maintain control of Crohn's symptoms as assessed by specialist every 3 to 6 months or more documented as of this encounter Procedures Procedure Name Priority Date/Time Associated Diagnosis Comments ADALIMUMAB QUANT WITH REFLEX TO ANTIBODY Routine 04/28/2018 8:58 AM EST Crohn's disease of both small and large intestine with rectal bleeding CRP, ACUTE INFLAMMATION Routine 04/28/2018 8:58 AM EST Crohn's disease of both small and large intestine with rectal bleeding HEMOGRAM Routine 04/28/2018 8:58 AM EST Crohn's disease of large intestine without complication DIFFERENTIAL, AUTOMATED Routine 04/28/2018 8:58 AM EST Crohn's disease of large intestine without complication CBC (WITH DIFF) Routine 04/28/2018 8:58 AM EST Crohn's disease of large intestine without complication VITAMIN B12 Routine 04/28/2018 8:58 AM EST Crohn's disease of both small and large intestine with rectal bleeding HEPATIC FUNCTION PANEL Routine 04/28/2018 8:58 AM EST Crohn's disease of both small and large intestine with rectal bleeding documented in this encounter Results * Hemogram (08/20/2018 1:36 PM EDT) White Blood Cell 5.2 4.0 - 9.5 x10(3)/[facility] Red Blood Cell 4.20 4.00 - 5.21 x10(6)/[facility] Hemoglobin 12.6 11.7 - 15.5 gm/dL [facility] Hematocrit 39.6 35.7 - 45.8 % [facility] Mean Cell Volume 94.3 82.6 - 94.4 fL [facility] Mean Cell Hemoglobin 30.0 27.1 - 32.0 pg [facility] Mean Cell Hemoglobin Concentration 31.8 31.7 - 35.0 gm/dL [facility] Platelet 257 145 - 357 x10(3)/[facility] RDW Standard Deviation 42.9 37.0 - 46.0 fL [facility] RDW coefficient of variation 12.4 11.5 - 14.1 % [facility] Mean Platelet Volume 9.0 7.6 - 12.9 fL [facility] NRBC% auto 0.0 % [facility] [place] NRBC Absolute 0.000 0.000 - 0.000 x10(3)/[facility] Blood specimen (specimen) 08/20/2018 1:36 PM EDT 08/20/2018 1:47 PM EDT Narrative Resulting Agency Comment Spec In Lab Bee Tejeda MD HEMATOLOGY ORDER RAFFI [facility] [place] [address] * MRI Enterography wwo Contrast (05/03/2018 5:09 [...] below. ? Electronically signed by: Jitendra Walden [facility] ([phone]), at 05/04/2018 11:59 AM Narrative 05/04/2018 11:59 AM EST EXAMINATION: MRI [...] Electronically signed by: Jitendra Walden [facility]([phone]), at 05/04/2018 11:59 AM Bee Tejeda MD IMG MRI ORDERABL ES * Differential, Automated (04/28/2018 8:58 AM EST) Neutrophil % 40.8 % [facility] Neutrophil Absolute 1.89 1.70 - 6.10 x10(3)/[facility] Lymph % 44.7 % [facility] Lymphocytes Abs 2.1 0.9 - 3.2 x10(3)/[facility] Monocyte % 11.0 % [facility] Monocyte Abs 0.5 0.3 - 0.9 x10(3)/[facility] Eos % 2.2 % [facility] Eosinophils Abs 0.1 0.0 - 0.4 x10(3)/[facility] Basophil % 1.1 % [facility] Baso Absolute 0.0 0.0 - 0.1 x10(3)/[facility] Immature Gran % 0.20 % [facility] Comment: Immature granulocytes(IG's)percentage and absolute count will include metamyelocytes, myelocytes, and promyelocytes. Blood smears from CBCs yielding IG's will be scanned manually for concordance. If this scan disagrees with the automated IG or if promyelocytes are noted, a manual differential will be performed. Immature Gran Absolute 0.01 0.00 - 0.04 x10(3)/[facility] Blood specimen (specimen) 04/28/2018 8:58 AM EST 04/28/2018 9:12 AM EST Narrative Resulting Agency Comment Spec In Lab Bee Tejeda MD HEMATOLOGY ORDER RAFFI [facility] [place] [address] * Hemogram (04/28/2018 8:58 AM EST) White Blood Cell 4.6 4.0 - 9.5 x10(3)/[facility] Red Blood Cell 4.10 4.00 - 5.21 x10(6)/[facility] Hemoglobin 12.4 11.7 - 15.5 gm/dL [facility] Hematocrit 37.9 35.7 - 45.8 % [facility] Mean Cell Volume 92.4 82.6 - 94.4 fL [facility] Mean Cell Hemoglobin 30.2 27.1 - 32.0 pg [facility] Mean Cell Hemoglobin Concentration 32.7 31.7 - 35.0 gm/dL [facility] Platelet 275 145 - 357 x10(3)/[facility] RDW Standard Deviation 42.9 37.0 - 46.0 fL [facility] RDW coefficient of variation 12.6 11.5 - 14.1 % [facility] Mean Platelet Volume 8.9 7.6 - 12.9 fL [facility] NRBC% auto 0.0 % [facility] NRBC Absolute 0.000 0.000 - 0.000 x10(3)/[facility] Blood specimen (specimen) 04/28/2018 8:58 AM EST 04/28/2018 9:12 AM EST Narrative Resulting Agency Comment Spec In Lab Bee Tejeda MD HEMATOLOGY ORDER RAFFI Performing Organization Address [facility] [place] [facility] Co de Phone Number [facility] [place] [address] * Vitamin B12 (04/28/2018 8:58 AM EST) Vitamin B12 516 232 - 1,245 pg/mL [facility] Blood specimen (specimen) 04/28/2018 8:58 AM EST 04/28/2018 9:12 AM EST Narrative Resulting Agency Comment Spec In Lab Bee Tejeda MD CHEMISTRY ORDERA BLES Performing Organization Address [facility] [place] [facility] Co de Phone Number [facility] [place] [address] * CRP, acute inflammation (04/28/2018 8:58 AM EST) C-Reactive Protein 0.5 <=4.9 mg/L [facility] Blood specimen (specimen) 04/28/2018 8:58 AM EST 04/28/2018 9:12 AM EST Narrative Resulting Agency Comment Spec In Lab Bee Tejeda MD CHEMISTRY ORDERA BLES Performing Organization Address City/[facility] Co de Phone Number [facility] [place] [address] * Hepatic Function Panel (04/28/2018 8:58 AM EST) Protein, Total 7.1 6.1 - 8.0 gm/dL [facility] Albumin 4.5 3.2 - 5.2 gm/dL [facility] Aspartate Aminotransferase 23 0 - 30 unit/L [facility] Alanine Aminotransferase 24 0 - 30 unit/L [facility] Alkaline Phosphatase 63 40 - 104 unit/L [facility] Bilirubin, Total 0.3 0.2 - 1.3 mg/dL [facility] Bilirubin, Direct 0.1 0.0 - 0.3 mg/dL [facility] Blood specimen (specimen) 04/28/2018 8:58 AM EST 04/28/2018 9:12 AM EST Narrative Resulting Agency Comment Spec In Lab Bee Tejeda MD CHEMISTRY ORDERA BLES [facility] [place] [address] * Adalimumab Quant with Reflex to Antibody (04/28/2018 8:58 AM EST) Adalimumab Level (JULY) 11.0 mcg/mL [facility] Comment: For clinical assessment of response to therapy, adalimumab should be measured at trough. When adalimumab trough concentrations are greater than 5.0 mcg/mL, clinically relevant ulusepkvty-br-kimitcjsry are unlikely and reflex testing will not be performed. REFERENCE VALUE Limit of Quantitation = 0.8 mcg/mL ADDITIONAL INFORMATION This test was developed and its performance characteristics determined by [facility] in a manner consistent with CLIA requirements. This test has not been cleared or approved by the U.S. Food and Drug Administration. Test Performed by: [facility] - [facility] [address] [place] [address] Blood specimen (specimen) 04/28/2018 8:58 AM EST 04/28/2018 1:42 PM EST Narrative Resulting Agency Comment Spec In Lab Bee Tejeda MD LAB SEND OUT ORD ERABLES [facility] [place] [address] documented in this encounter Visit Diagnoses Diagnosis Crohn's disease of both small and large intestine with rectal bleeding Regional enteritis of small intestine with large intestine Crohn's disease of large intestine without complication Regional enteritis of large intestine Crohn's disease of both small and large intestine with rectal bleeding Regional enteritis of small intestine with large intestine documented in this encounter Care Teams Automobile Radio Repairer Relationship Specialty Start Date End Date Valarie Phillips MD [address] [place] [address] PCP - General General Internal Medicine 09/06/17 documented as of this encounter
--- OUTSIDE RECORDS SUMMARY | 2024-04-14 02:15 | XMS_ITS | Encounter Summary ---
Author Organization [facility] Address [address] [place] [address] Care Team Providers Care Safety Relief Valve Technician Name Role Phone Berhane Kemp MD Primary Care Provider [phone] Berhane Kemp MD Unavailable [phone] Encounter Details Date Type Department Care Team (Late st Contact Info) Description 02/23/2015 Orders Only [facility] Hematology & Oncology - [facility] [address] [place], [place] [address] Scarlet Block, NITIN [address] [place] [address] Primary hypercoagulable state (HCC-CMS) (Primary Dx) Social History Tobacco Use Types Packs/Day Years Used Date Smoking Tobacco: Former Smokeless Tobacco: Never Comments Unknown Sex and Gender Information Value Date Recorded Sex Assigned at Not on file Legal Sex Female 17:44 EST Gender Identity Not on file Sexual Orientation Not on file documented as of this encounter Plan of Treatment Not on file documented as of this encounter Results * (ABNORMAL) PROTEIN C ANTIGEN (02/23/2015 15:39 EST) Protein C Antigen 48(L) 70 - 150 % 02/28/2015 7:[address] [facility] Comment: (Note) Note: ??Decreased Protein C antigen could reflect acquired conditions (e.g., liver disease, Vitamin K deficiency, warfarin anticoagulation) or a congenital deficiency state. Suggest clinical correlation. Performed or Referred by: [facility] Labs: [facility], [facility] [place] [address], Lab Dir: Flaquito Singer III, MD Blood specimen (specimen) BLOOD SPECIMEN / Unknown 02/23/2015 15:39 EST 02/23/2015 15:52 EST us Jamar Morales MD HEMATOLOGY & PF4 ORDERABLES Final Result Performing Organization Address City/[facility]/ZIP Co de Phone Number [facility] [address] [place] [address] * (ABNORMAL) PROTEIN C ACTIVITY (02/23/2015 15:39 EST) Protein C Clot 55(L) 71 - 199 % 02/26/2015 9:[address] [facility] Comment: a. ??Acquired Protein C deficiencies are associated with liver disease, oral anticoagulants, acute thrombotic events and DIC. b. ??Results may be affected by plasma heparin levels greater than 1.5 U/mL for UFH and 0.8 for LMWH. c. ??Results may be overestimated in the presence of direct thrombin inhibitors such as Hirudin (Refludan) and Argatroban (Novastan). d. ??Acute illness and/or thrombosis may influence test results in an unpredictable manner, therefore results should be interpreted with caution in this setting. Sample retested, result confirmed Blood specimen (specimen) BLOOD SPECIMEN / Unknown 02/23/2015 15:39 EST 02/23/2015 15:52 EST us Jamar Morales MD HEMATOLOGY & PF4 ORDERABLES Final Result Performing Organization Address [facility] Co de Phone Number [facility] [address] [place] [address] documented in this encounter Visit Diagnoses Diagnosis Primary hypercoagulable state (HCC-CMS)- Primary Primary hypercoagulable state documented in this encounter Care Teams Safety Relief Valve Technician Relationship Specialty Start Date End Date Berhane Kemp MD [address] [place] [address] PCP - General 02/21/15 Berhane Kemp MD [address] [place] [address] 02/19/15 documented as of this encounter
--- OUTSIDE RECORDS SUMMARY | 2024-04-14 02:15 | XMS_ITS | Encounter Summary ---
Author Organization [facility] [place] [address] Care Team Providers Care Quiller Hand Name Role Phone Berhane Kemp MD Primary Care Provider [phone] Encounter Details Date Type Department Care Team (Late Contact Info) Description 03/04/2012 Orders [place] [id number] Nathanael Pyle MD [facility] [place] [address] Irritable bowel syndrome (IBS) (Primary Dx) Social History Tobacco Use Types Packs/Day Years Used Date Smoking Tobacco: Never Assessed Alcohol Use Standard Drinks/Week Comments Yes 5 [...] PM EDT TH Visit (TeleHealth) [place] [address] Malinda Christopher MD [facility] [place] [address] documented as of this encounter Visit Diagnoses Diagnosis Irritable bowel syndrome (IBS)- Primary Irritable bowel syndrome documented in this encounter Care Teams Quiller Hand Relationship Specialty Start Date End Date Berhane Kemp MD [address] [place] [address] PCP - General 01/29/10 03/04/15 documented as of this encounter
--- OUTSIDE RECORDS SUMMARY | 2024-04-14 02:15 | XMS_ITS | Encounter Summary ---
Author Organization [facility] Address [address] [place] [address] Care Team Providers Care Sales Operations Analyst Name Role Phone Unknown, Provider Primary Care Provider Tushar ilable Encounter Details Date Type Department Care Team (Late st Contact Info) Description 05/25/2014 Results Only [facility] [phone] Giovanna Goddard MD [address] [place] [address] Social History Tobacco Use Types Packs/Day Years Used Date Smoking Tobacco: Never Assessed Comments Unknown Sex and Gender Information Value Date Recorded Sex Assigned at Not on file Legal Sex Female 17:44 EST Gender Identity Not on file Sexual Orientation Not on file documented as of this encounter Plan of Treatment Not on file documented as of this encounter Procedures Procedure Name Priority Date/Time Associated Diagnosis Comments SURGICAL PATHOLOGY Routine 05/25/2014 21 :48 EDT documented in this encounter Results * SURGICAL PATHOLOGY (05/25/2014 21:48 EDT) Pathology Report: SURGICAL PATHOLOGY REPORT Reports generated via electronic interface contain original data; however they are lacking the format of the original report. Caution should be taken when reading/interpret ing unformatted reports. Name: ? FAYE MAHONEY ? Accession #: ? [id number] ? : ? 1960 (Age: 54) ??F ? Collect Date: ? 05/25/2014 ? Location: ? [facility] ? Receive Date: ? 05/25/2014 ? Provider: GIOVANNA GODDARD MD Copy to: KARYNA HOWARD MD ? Final Pathologic Diagnosis: GALLBLADDER, CHOLECYSTECTOMY: - Chronic cholecystitis. - Cholelithiasis. - Cholesterolosis. Document reviewed and electronically signed by: EDINSON PENA MD Report ??Date: 05/29/2014 16:02 By the signature above, the attending physician certifies that he/she has personally conducted a gross and/or microscopic examination of the described specimens and rendered or confirmed the above diagnosis. Specimen(s) Received: Gallbladder Clinical History: Chronic cholecystitis; clinical diagnosis code: ??575.11 Gross Description: ? Received in formalin labelled with proper patient identification (initials B, S) and A. gallbladder is a disrupted gallbladder (7.5 x 2.5 x 1.3 cm) with an attached segment of cystic duct (0.1 cm in length x 0.2 cm in diameter). ? The serosa is cooper-white and smooth. The mucosa is green-yellow and attenuated and the wall is 0.1 cm in thickness. The cystic duct lumen is patent. The cystic duct margin is inked blue. Multiple green-cooper easily compressible choleliths are present measuring 3.0 x 1.8 x 0.7 cm in aggregate. ? Two business services sales representative sections and the inked en face cystic duct margin are submitted in 1. Dr. You 05/26/2014 05:19 PM End of Report [facility] 05/25/2014 21:4 8 EDT 05/25/2014 21:48 EDT us Giovanna Goddard MD PATHOLOGY ORDERABLES Final Resul t [facility] [address] [place] [address] documented in this encounter Visit Diagnoses Not on filedocumented in this encounter Care Teams Sales Operations Analyst Relationship Specialty Start Date End Date Unknown, Provider, PCP - General 01/29/09 05/25/14 documented as of this encounter
--- OUTSIDE RECORDS SUMMARY | 2024-04-14 02:15 | XMS_ITS | Encounter Summary ---
Author Organization [facility] Address [address] [place] [address] Care Team Providers Care Double Surface Operator Name Role Phone Berhane Kemp MD Primary Care Provider [phone] Reason for Visit * Reason Onset Date Comments New Patient Visit 02/16/2015 protein C def; study 2002 Yolanda Read Encounter Details Date Type Department Care Team (Late st Contact Info) Description 02/16/2015 Telephone [facility] Hematology & Oncology - [facility] [address] [place] [address] Self, Referral New Patient Visit (protein C def; study 2002 Yolanda Read) Social History Tobacco Use Types Packs/Day Years Used Date Smoking Tobacco: Never Assessed Comments Unknown Sex and Gender Information Value Date Recorded Sex Assigned at Not on file Legal Sex Female 17:44 EST Gender Identity Not on file Sexual Orientation Not on file documented as of this encounter Miscellaneous Notes * Telephone Encounter - Inna Key - 02/16/2015 1609 EST I spoke with Janice and scheduled her for an appointment with Dr. Jamar Morales on Thursday, 02/26 at 3:45pm. I let her know that new patient paperwork is going to be sent out to her home along with information about the appointment. She was agreeable to the appointment date/time. She has the paperwork from the study that was done in [address] Read. She has a ortho surgery coming up and was looking for pre-op instructions before surgery. documented in this encounter Plan of Treatment Not on file documented as of this encounter Visit Diagnoses Not on filedocumented in this encounter Care Teams Double Surface Operator Relationship Specialty Start Date End Date Berhane Kemp MD [address] [place] [address] PCP - General 05/26/14 02/18/15 documented as of this encounter
--- OUTSIDE RECORDS SUMMARY | 2024-04-14 02:15 | XMS_ITS | Encounter Summary ---
Author Organization [facility] [place] [address] [place] [address] Care Team Providers Care Warehouse Logistics Coordinator Name Role Phone Valarie Phillips MD Primary Care Provider [phone] Reason for Visit * Reason Onset Date Comments Prior Authorization 10/26/2017 Willy Encounter Details Date Type Department Care Team (Late st Contact Info) Description 10/26/2017 [place] [phone] Alberta Yeboah CPHT Prior Authorization (Willy ) Social History Tobacco Use Types Packs/Day Years [...] encounter Miscellaneous Notes * Telephone Encounter - Silverio Sepulveda - 10/27/2017 3:40 PM EDT [facility], Prior Authorization Denial Case/Reference #: [id number] Additional Information from Insurance carrier: Per [employer]-Coverage is provided when the patient has tried corticosteroids, is currently on corticosteroids, or corticosteroids are contraindicated. 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 To appeal this claim, call [phone] * Telephone Encounter - Alberta Mccurdy - 10/26/2017 1:10 PM EDT [facility], Medication Prior Authorization Patient: Janice Mahoney Patient : 1960 Patient Address: [address] [address] (home) Medication: Humira Subscriber Insurance: [employer] [place] Fax: Physician: Bee Perez-Pace Sent Via: [facility] Andujar: [id number] Ref/Case/PA#: [id number] Medication Strength Frequency Requested: 40mg/0.8ml: 4 pens day one, 2 pens day 14, and then 1 pen every 14 days. Qty/Day Supply: 09/03 days New Start: Yes Diagnosis & ICD-10 Code: Crohn's disease of large intestine with other complication K50.118 documented in this encounter Plan of Treatment Upcoming Encounters Date Type Department Care Team (Late st Contact Info) Description 07/18/2024 1:00 PM EDT TH Visit (TeleHealth) [place] [address] Malinda Christopher MD [facility] [place] [address] documented as of this encounter Visit Diagnoses Not on filedocumented in this encounter Care Teams Warehouse Logistics Coordinator Relationship Specialty Start Date End Date Valarie Phillips MD [address] [place] [address] PCP - General General Internal Medicine 09/06/17 documented as of this encounter
--- OUTSIDE RECORDS SUMMARY | 2024-04-14 02:15 | XMS_ITS | Encounter Summary ---
Author Organization [facility] [place] [place] [address] Care Team Providers Care Secondary School Teacher Name Role Phone Valarie Phillips MD Primary Care Provider [phone] Encounter Details Date Type Department Care Team (Late st Contact Info) Description 10/16/2017 Telephone [place] [phone] Yarelis Milian Social History Tobacco Use Types [...] encounter Miscellaneous Notes * Telephone Encounter - Maicol Yarelis - 10/16/2017 2:41 PM EDT Emre Gamboa I called to pt to reschedule her fu apt. Emre Gamboa pt is looking for a sooner fu apt. Michael when ever pt wants fu is fine. Fu should be durring her thu morning clinic. documented in this encounter Plan of Treatment Upcoming Encounters Date Type Department Care Team (Late st Contact Info) Description 07/18/2024 1:00 PM EDT TH Visit (TeleHealth) [place] [phone] Malinda Christopher MD [facility] [place] [address] documented as of this encounter Visit Diagnoses Not on filedocumented in this encounter Care Teams Secondary School Teacher Relationship Specialty Start Date End Date Valarie Phillips MD [address] [place] [address] PCP - General General Internal Medicine 09/06/17 documented as of this encounter
--- OUTSIDE RECORDS SUMMARY | 2024-04-14 02:15 | XMS_ITS | Encounter Summary ---
Author Organization [facility] [address] Care Team Providers Care Risk Assessment Analyst Name Role Phone Berhane Kemp MD Primary Care Provider [phone] Encounter Details Date Type Department Care Team (Late st Contact Info) Description 03/04/2012 Telephone [place] [address] Maria E Curiel RN Social History Tobacco Use Types Packs/Day [...] encounter Miscellaneous Notes * Telephone Encounter - Maria E Emmanuel RN - 03/04/2012 8:46 AM EST Janice called asking to speak with Dr olson. She is once again having abdominal pain. Afebrile Worried that she is having a flare of her diverticulitis. She did call her PCP, but was instructed to call us. Will review with Dr olson documented in this encounter Plan of Treatment Upcoming Encounters Date Type Department Care Team (Late st Contact Info) Description 07/18/2024 1:00 PM EDT TH Visit (TeleHealth) [place] [address] Malinda Christopher MD [facility] [place] [address] documented as of this encounter Visit Diagnoses Not on filedocumented in this encounter Care Teams Risk Assessment Analyst Relationship Specialty Start Date End Date Berhane Kemp MD [address] [place] [address] PCP - General 01/29/10 03/04/15 documented as of this encounter
--- OUTSIDE RECORDS SUMMARY | 2024-04-14 02:15 | XMS_ITS | Encounter Summary ---
Author Organization [facility] Address [address] [place] [address] Care Team Providers Care Ecdis N Navigation Operator Name Role Phone Unknown, Provider MD Primary Care Provider Berhane Truner MD Unavailable [phone] Reason for Visit * Reason Onset Date Comments New Patient Visit 02/20/2015 appointment neno hartmann Encounter Details Date Type Department Care Team (Late st Contact Info) Description 02/20/2015 Telephone [facility] [place] Hematology & Oncology - [facility] [address] [place] [address] Jamar Morales MD [address] [place] [phone] New Patient Visit (appointment change) Social History Tobacco Use Types Packs/Day Years Used Date Smoking Tobacco: Never Assessed Comments Unknown Sex and Gender Information Value Date Recorded Sex Assigned at Not on file Legal Sex Female 17:44 EST Gender Identity Not on file Sexual Orientation Not on file documented as of this encounter Miscellaneous Notes * Telephone Encounter - Inna Key - 02/20/2015 1526 EST I spoke with Janice and asked if we could move her appointment to Thursday, 02/23. She was agreeable to the change and will be here to see Dr. Morales on 02/23 at 3:00pm. I apologized for the last minute change. documented in this encounter Plan of Treatment Not on file documented as of this encounter Visit Diagnoses Not on filedocumented in this encounter Care Teams Ecdis N Navigation Operator Relationship Specialty Start Date End Date Unknown, Provider, PCP - General 02/19/15 02/20/15 Berhane Kemp MD [address] [place] [address] 02/19/15 documented as of this encounter
--- OUTSIDE RECORDS SUMMARY | 2024-04-14 02:15 | XMS_ITS | Encounter Summary ---
Author Organization [facility] [place] [address] Care Team Providers Care Head Chopper Name Role Phone Valarie Phillips MD Primary Care Provider [phone] Reason for Visit * Reason Comments Establish Care * Consultation (Routine) - Closed Specialty Diagnoses / Procedures Referred By Contac t Referred To Contact General Surgery Diagnoses CONTINUED PAIN, SWELLING AND FISSURES. S/P EXTENSIVE HEMORRHOIDECTOMY Tiffany Aviles MD [address] [place] [address] [facility] Gen Surgery [address] [place] [address] Referral ID Status Reason Start Date Expiration Date V isits Requested Visits Authorized [id number] Closed Consult, Test & Treat Connection Center 09/07/2017 09/07/2018 1 1 Encounter Details Date Type Department Care Team (Late st Contact Info) Description 09/15/2017 11:30 AM EDT Office Visit [place] [address] [facility] [address] GENERAL SURGERY [place], [place] [phone] Clotting disorder; Anal pain Social History Tobacco Use Types Packs/Day Years [...] Sign Reading Time Taken Comments Blood Pressure 132/65 09/15/2017 11:27 AM EDT Pulse 83 09/15/2017 11:27 AM EDT Temperature 36.6 ??C (97.9 ??F) 09/15/2017 11:27 AM E DT Respiratory Rate 18 09/15/2017 11:27 AM EDT Oxygen Saturation 98% 09/15/2017 11:27 AM EDT Inhaled Oxygen Concentration - - Weight 59.4 kg (131 lb) 09/15/2017 11:27 AM EDT Height - - Body Mass Index 25.58 02/19/2012 8:51 AM EST documented in this encounter Progress Notes * Inna Laguna MD - 09/15/2017 11:30 AM EDT Colorectal Surgery Outpatient Consultation ~ Division of Colon and Rectal Surgery ~ [facility] HPI: Janice Mahoney is a pleasant 57 y.o. female who we were asked to see by Dr. Aviles regarding continued pain and bleeding s/p hemorrhoidectomy on 04/23/17 and chronic anal fissure. Before surgery she had been dealing with constant pain (worsened with defecation), bleeding into the toilet bowl and pruritis. Since the surgery the pain has still been constant, but is now characterized as more pressure and burning. She also describes incontinence to mucous-like discharge and loose stool, and frequent tenesmus. Her bowel movements have increased to 3 times per day from 1 per day with occasionalanal spasm. She has been taking diltiazem ointment TID for her suspected fissure, which provides about two hours of relief after each application. Sitz baths have also improved her symptoms after bowel movements. She drinks 32oz of water/seltzer per day, consumes 4 teaspoons of metamucil per day, and usually spends 10-15 minutes in the bathroom on average. She denies any recent episodes of constipation. Her obstetrical history includes two vaginal deliveries, one of which required an episiotomy, but denies any issues with continence after . Chief Complaint Patient presents with ??? Establish Care . The patient's PCP is Valarie Phillips MD. Review of Systems Constitutional: Negative for fever and weight loss. Respiratory: Negative for cough and shortness of breath. Genitourinary: Negative for stress incontinence and vaginal discharge. Gastrointestinal: Positive for diarrhea. Negative for constipation. HENT: Negative for throat clearing and sinus pressure. Hematologic/Lymphatic: Negative for adenopathy and tender nodes. Musculoskeletal: Negative for joint pain and stiffness. Endocrine: Negative for polydipsia and polyphagia. Cardiovascular: Negative for palpitations and syncope. Neurological: Negative for headaches. Skin: Negative for erythema and nodules. Past medical history: Past Medical History: Diagnosis Date ??? Diverticulitis ??? Hemorrhagic disorder protein C deficiency Past surgical history: Past Surgical History: Procedure Laterality Date ??? CHOLECYSTECTOMY ??? HEMORRHOID SURGERY ??? HYSTERECTOMY ??? PRO COLONOSCOPY, DIAGNOSTIC 02/19/2012 COLONOSCOPY, DIAGNOSTIC performed by Nathanael Pyle MD at [facility] ENDOSCOPY Allergies: Polyethylene glycol analogues Medications: reviewed in the electronic medical record. No current outpatient prescriptions on file prior to visit. No current facility-administered medications on file prior to visit. Social history: reports that she drinks about 3.0 oz of alcohol per week Family medical history: Family History Problem Relation Age of Onset ??? Cancer Maternal Grandmother colon ca, uterine ca ??? Cancer Paternal Grandmother colonc ca Patient denies a family history of: colorectal cancer, colorectal polyps and diverticular disease. Patient admits a family history of: colon cancer in MGM and PGM and uterine cancer MGM. She is unsure of their age at diagnosis. Physical exam: Vitals:Blood pressure 132/65, pulse 83, temperature 36.6 ??C (97.9 ??F), resp. rate 18, weight 59.4 kg (131 lb), SpO2 98 %.@BMI BMI: Body mass index is 25.58 kg/(m^2). Exam performed by Malnida Laguna MD General Appearance: NAD Neuro: Normal gait Psych: Normal affect Eyes: EOMI ENT: MMM CV: NSR Resp: CTAB Lymph: No cervical GI Abdomen: Soft NT ND Digital Rectal Exam: With assistance from nursing staff. External exam: Right posterior - large firm skin tags - some fissure versus non-healing surgical incision. Nodular external tags anterior midline extending into perineal body. Left posterior deep fissure with associated enlarged skin tags. Anus is closed. KARTIK with mildly decreased tone at rest. Nodularity in distal rectum. Anal tinning equipment tender with KARTIK andanoscopy not performed. Ext: No LE edema Labs: reviewed. Endoscopy: reviewed - last colo 2011 Path: reviewed. Imaging: reviewed. Impression/Plan: Janice Mahoney is a pleasant 57 y.o. female who is seeking consultation for pain and bleeding s/p hemorrhoidectomy on 04/23/17 and chronic anal fissure. The symptoms she describes - bleeding, incontinence, spasm, severe pain, relief with diltiazem and sitz baths - are most consistent with anal fissure and/or scarring/stricture related to her previous surgery. However, this differential is not supported by her exam findings. Her fissures are lateral to the posterior midline, skin tags are quite firm and nodular more characteristic of chronic inflammation than external hemorrhoids, and the nodularity palpated in the distal rectum is also consistent with inflammatory change. This broadens the dif ferential to include neoplasm, Crohns or UC. Since her most recent colonoscopy was 6 years ago, we recommended that Janice undergo a repeat colonoscopy to assess the entire bowel for pathologic changes that may shed more light on her current symptoms. The patient agreed to this plan and would like to proceed. Ced Devi MD 09/15/17 Colorectal Surgery I have seen the patient and reviewed the resident's above history and I agree with the details as written. The assessment and plan were formulated in discussion with me and I agree with them as documented. I personally performed the physical exam and this is documented above. Janice is s/p excisional hemorrhoidectomy x2. The op note describes excising the skin tags with a knife and then cauterizing the underlying hemorrhoid vessels. On my exam, there are several large, firm, waxy, aejocdym-uim-uvlo external skin tags suggestive of Crohn's. This is not described in the op note and may be a reaction to the operation. Furthermore, while there was a posterior midline fissure described in Dr. Aviles's op note, there are numerous areas of fissure that appear to be related to the hemorrhoidectomy incisions and are off midline. I would not expect to see wounds like this 4 months out from surgery. Again, this raises the concern for Crohn's disease as does the change in frequency of bowel movements and looser stools. I have arranged for a colonoscopy to further evaluate. Pending these findings, will consider systemic treatment for Crohn's if this is supported by the colonoscopic findings versus EUA and possible imaging studies. Janice would like the earliest available colonoscopy which is with one of our GI colleagues and we will schedule this for her. Inna Laguna MD assistant community director Division of Colon and Rectal Surgery [facility] Pager [phone] documented in this encounter Plan of Treatment Upcoming Encounters Date Type Department Care Team (Late st Contact Info) Description 07/18/2024 1:00 PM EDT TH Visit (TeleHealth) [place] [address] [facility] [place] [address] documented as of this encounter Visit Diagnoses Diagnosis Clotting disorder Other and unspecified coagulation defects Anal pain Anal or rectal pain documented in this encounter Care Teams Head Chopper Relationship Specialty Start Date End Date Valarie Phillips MD [address] [place] [address] PCP - General General Internal Medicine 09/06/17 documented as of this encounter
--- OUTSIDE RECORDS SUMMARY | 2024-04-14 02:15 | XMS_ITS | Encounter Summary ---
Author Organization [facility] [place] [address] Care Team Providers Care Solar Energy System Installer Name Role Phone Valarie Phillips MD Primary Care Provider [phone] Reason for Visit * Reason Onset Date Comments Medication Refill 10/28/2017 Encounter Details Date Type Department Care Team (Late st Contact Info) Description 10/28/2017 [place] [address] Meme Garza RN Social History Tobacco Use [...] PM EDT TH Visit (TeleHealth) [place] [phone] Malinda Christopher MD [facility] [place] [address] documented as of this encounter Visit Diagnoses Not on filedocumented in this encounter Care Teams Solar Energy System Installer Relationship Specialty Start Date End Date Valarie Phillips MD [address] [place] [address] PCP - General General Internal Medicine 09/06/17 documented as of this encounter
--- OUTSIDE RECORDS SUMMARY | 2024-04-14 02:15 | XMS_ITS | Encounter Summary ---
Author Organization [facility] Address [address] [place] [address] Care Team Providers Care Load Builder Name Role Phone Berhane Kemp MD Primary Care Provider [phone] Reason for Visit * Reason Onset Date Comments Other 02/15/2015 email from Jordyn HERCULES Encounter Details Date Type Department Care Team (Late st Contact Info) Description 02/15/2015 Telephone [facility] Hematology & Oncology - [address] [phone] Ivet Read MD [address] [facility], [address] [place] [address] Other (email from Jordyn HERCULES) Social History Tobacco Use Types Packs/Day Years Used Date Smoking Tobacco: Never Assessed Comments Unknown Sex and Gender Information Value Date Recorded Sex Assigned at Not on file Legal Sex Female 17:44 EST Gender Identity Not on file Sexual Orientation Not on file documented as of this encounter Miscellaneous Notes * Telephone Encounter - Scarlet Block RN - 02/16/2015 1112 EST Returned calls, pt is agreeable to appt to establish heme care for protein c deficiency so plans can be safely made for surgeries * Telephone Encounter - Ayana Long - 02/16/2015 0828 EST Pt is very anxious to speak with Dr. Read or nurse in regards to what blood thinner she should be on after her surgery. Pt is not a patient here but states that her surgery is this month and thereis no time to meet face to face with Dr. Read. * Telephone Encounter - Scarlet Guardado - 02/15/2015 1105 EST Reason for Call: Other Summary/Symptoms: Scarlet from the [facility] letting know that Jordyn HERCULES has been trying to send an email to discuss pt. Please call Scarlet at [phone] or email [email or web address] Scarlet Guardado 02/15/2015 11:05 documented in this encounter Plan of Treatment Not on file documented as of this encounter Visit Diagnoses Not on filedocumented in this encounter Care Teams Load Builder Relationship Specialty Start Date End Date Berhane Kemp MD [address] [place] [address] PCP - General 05/26/14 02/18/15 documented as of this encounter
--- OUTSIDE RECORDS SUMMARY | 2024-04-14 02:15 | XMS_ITS | Encounter Summary ---
Author Organization [facility] [place] [address] Care Team Providers Care Loft Worker Head Name Role Phone Valarie Phillips MD Primary Care Provider [phone] Encounter Details Date Type Department Care Team (Latest Contact Info) Description 10/02/2017 9:03 AM EDT - 10/02/2017 12:16 PM EDT Hospital En[place] [id number] Moe Smith MD [facility] [place] [address] Discharge Disposition: Home Social History Tobacco Use [...] Sign Reading Time Taken Comments Blood Pressure 104/51 10/02/2017 11:35 AM EDT Pulse 97 10/02/2017 10:58 AM EDT Temperature - - Respiratory Rate 22 10/02/2017 10:58 AM EDT Oxygen Saturation 99% 10/02/2017 11:35 AM EDT Inhaled Oxygen Concentration - - Weight - - Height - - Body Mass Index - - documented in this encounter Discharge Instructions * Discharge Instructions* Mariah Hughes RN - 10/02/2017 11:08 AM EDT Colonoscopy with biopsies What to expect after the procedure You may feel a little more gassy or bloated than usual. This is normal. You should expect the return of normal bowel function in the 2 to 3 days. Activity Because of the sedation that you received your judgement and reaction time are effected ?? Go home and rest quietly for the remainder of the day. You may resume your normal activities tomorrow. ?? Change from one position to the next slowly. You may lose your balance unexpectedly ?? Be careful on stairs, as you may be unsteady on your feet FOR THE NEXT 24 HRS ?? DO NOT DRIVE OR OPERATE ANY MACHINERY ?? DO NOT DRINK ALCOHOLIC BEVERAGES ?? DO NOT SIGN LEGAL DOCUMENTS ?? If you are a smoker: DO NOT SMOKE WHILE YOU ARE ALONE Diet ?? Start by eating small portions of foods that ordinarily will not upset your stomach . Avoid gas producing foods for the next few days ?? Be gentle with what you choose to start with ?? Drink plenty of fluids ( unless your doctor has told you not to). IV SITE-- slight redness, or tenderness is normal. You can use warm compresses if you become concerned. If the tenderness +/or redness increases or foul drainage and a red streak occurs, please contact your PCP immediately When shoud you call for help? Call 911 anytime you think you may need emergency care. For example If you pass out ( loss of consciousness) If you pass maroon or bloody stools If you have severe belly pain Call your doctor now or seek immediate medical care If your stools are black and tarlike If your stools have streaks of blood, but you did not have a biopsy or any polyps removed If you have belly pain, or your belly is swollen and firm If you vomit If you have a fever If you are very dizzy Watch closely for changes in your health, and be sure to contact your doctor if you have any problems Your doctor will let you know when you will need your next colonoscopy. The results of your test and your risk for colorectal cancer will help your doctor decide how often you need to be checked. Thursday-Thursday Same Day Endo [phone] Otherwise contact [phone] and ask to speak to the yard laborer iphone developer Follow up care is a sam part of your treatment and safety. Be sure to make and go to all appointments, and call your doctor if you are having problems. Discharge instructions reviewed with patient who expresses understanding documented in this encounter Medications at Time of Discharge Medication Sig Dispensed Refills Start Date End Date lidocaine (XYLOCAINE) 2 % jelly APPLY TO AFFECTED AREA FOUR TIMES DAILY NEEDED FOR PAIN 0 04/30/2017 10/16/2017 ibuprofen (ADVIL;MOTRIN) 200 mg Tablet Take 200 mg by mouth. 02/19 calcium carbonate (TUMS) 200 mg calcium (500 mg) Tablet, Chewable Take by mouth. acyclovir (ZOVIRAX) 200 mg Capsule 06/05/2017 02/03/2022 Miscellaneous Medical Supply Misc 09/07/2017 10/14/2017 Guar Gum Packet Take by mouth. 02/03/2022 docusate sodium (COLACE ORAL) Take by mouth. 02/03/2022 documented as of this encounter H&P Notes * Moe Smith MD - 10/02/2017 9:23 AM EDT Gastroenterology and Hepatology Pre-Procedure History and Physical Exam Procedure: Colonoscopy: Indication: anal fissure r/o crohn's Patient Active Problem List Diagnosis Code ??? Anal pain K62.89 ??? Clotting disorder D68.9 ??? Diverticulitis of large intestine without perforation or abscess without bleeding K57.32 ??? Gallstones K80.20 EXAM: HEENT: Airway examined, oropharynx clear Mallampati [...] PM EDT TH Visit (TeleHealth) [facility] [place] [address] Malinda Christopher MD [facility] [place] [address] documented as of this encounter Procedures Procedure Name Priority Date/Time Associated Diagnosis Comments SURGICAL PATHOLOGY REPORT Routine 10/02/2017 10:56 AM EDT SPECIMEN TO PATHOLOGY Routine 10/02/2017 10:56 AM EDT SPECIMEN TO PATHOLOGY Routine 10/02/2017 10:56 AM EDT COLONOSCOPY FLEXIBLE, WITH BX (WRVU 3.56) 10/02/2017 10:18 AM EDT ANAL PAIN WITH FISSURE AND LARGE SKIN TAGS COLONOSCOPY Routine 10/02/2017 10:17 AM EDT documented in this encounter Results * Surgical Pathology Report (10/02/2017 10:56 AM EDT) Final Diagnosis [id number] ? Location: 4T; EA10; A The signing pathologist has (i) examined the relevant preparation(s) for the specimen(s) and (ii) rendered or confirmed the diagnosis(es). . ?Surgical Pathology DIAGNOSIS A - Sigmoid colon, ??biopsy: - Chronic active colitis with multiple noncaseating granulomas that also involve submucosa. - There is no evidence of dysplasia. - Fibrinopurulent exudate consistent with ulcer (see Note). B - Rectum, ??biopsy: - Chronic active colitis with multiple noncaseating granulomas that also involve submucosa. - There is no evidence of dysplasia. - Fibrinopurulent exudate consistent with ulcer (see Note). Note: The findings are compatible with Crohn ?? 's disease upon exclusion of specific etiologies. CR-PX Electronically signed by: ??Edin Roy MD Verified: ??10/06/2017 ?Pathologist Performed at: ??-[facility], [place], [place] CLINICAL INFORMATION Specimen Submitted: A - Sigmoid B - Rectum Clinical History and Diagnosis: Patient with persistent anal fissure and skin tag/? Inflammation R/O Crohn ?'s SPECIMEN PROCESSING A - Labeled/Fixative: Sigmoid, formalin. Quantity/Size: Multiple, 0.1-0.3 cm. Tissue Description: Soft cooper tissue. Sections/Processin g: (T3) B - Labeled/Fixative: Rectum, formalin. Quantity/Size: Three, 0.2-0.3 cm. Tissue Description: Soft cooper tissue. Sections/Processin g: (T1) ??santiago 10/06/2017 4:30 PM EDT [facility] GI Biopsy 10/02/2017 10:5 6 AM EDT 10/02/2017 10:56 AM EDT GI Biopsy 10/02/2017 10:5 6 AM EDT 10/02/2017 10:56 AM EDT Moe Smith MD PATHOLOGY/CYTOLOGY [place] Performing Organization Address [facility] Co de Phone Number [facility] [place] [address] * Specimen to Pathology (10/02/2017 10:56 AM EDT) AP Specimen 10/02/2017 10:5 6 AM EDT 10/02/2017 10:56 AM EDT Narrative [facility] - 10/02/2017 10:56 AM EDT Specimen requisition ordered. ??Separate Pathology report to follow Moe Smith MD PATHOLOGY/CYTOLOGY [place] Performing Organization Address [facility]/ZIP Co de Phone Number [facility] [place] [address] * Specimen to Pathology (10/02/2017 10:56 AM EDT) AP Specimen 10/02/2017 10:5 6 AM EDT 10/02/2017 10:56 AM EDT Narrative [facility] - 10/02/2017 10:56 AM EDT Specimen requisition ordered. ??Separate Pathology report to follow Moe Smith MD PATHOLOGY/CYTOLOGY [place] [facility] [place] [address] * COLONOSCOPY (10/02/2017 10:17 AM EDT) COLONOSCOPY [facility] Endoscopy Procedure Date: 10/02/2017 10:17 AM ? Patient Name: Janice Mahoney ? N: [id number] ? Date of : 1960 ? Age: 57 ? Order #: [id number] ? Instrument Name: [id number] ? Procedure: ? Colonoscopy Indications: ? Pt s/p hemorrhoid surgery continued ? pain and large anal skin tags, r/o ? Crohn's disease. LLQ pain Providers: ? Moe Smith MD, Taty Fuller ? Urban Mckinney, Paper Pattern Inspector Referring MD: ?Valarie Phillips MD, Inna Laguna, ? MD Medicines: ? Midazolam 4 mg IV, Fentanyl 200 ? micrograms IV Complications: ? No immediate complications. Procedure: ? The procedure, indications, benefits, ? risks [...] and under direct visualization, ? advanced to 10 cm into the ileum. ? Careful inspection was made as the ? colonoscope was withdrawn. The ? colonoscopy was performed without ? difficulty. The patient tolerated the ? procedure well. ? Findings: ? Large inflamed and firm elephant ear skin tags were ? found on perianal exam. The anus was nodular on ? digital rectal examination. left perianal fissure on ? border of skin tag ? Retroflexion in anus could not be performed ? The descending colon, splenic flexure, transverse ? colon, hepatic flexure, ascending colon, cecum, ? appendiceal orifice and ileum appeared normal. ? Multiple small and large-mouthed diverticula were ? found in the sigmoid colon and descending colon. The ? sigmoid colon was narrowed and strictured in area of ? severe sigmoid diverticulosis. ? From rectum to 40 cm in sigmoid colon there was loss ? of vascularity and erythema. There was overlying ? mucus, but no clear ulcerations or erosions. The ? subtle changes did involve the rectum ? Moderate Sedation: ? I was present during the intraservice time as ? documented by the sedation RN. Impression: ?- Large perianal inflamed skin tags ? found on perianal exam. ? - The descending colon, splenic ? flexure, transverse colon, hepatic ? flexure, ascending colon, cecum, ? appendiceal orifice and terminal ? ileum are normal. ? - Diverticulosis associated with ? stricturing in the sigmoid colon and ? in the descending colon. This could ? be diverticular origin. There was ? possible subtle inflammation in the ? rectum and sigmoid. Question SCAD, ? question mild IBD ? - No specimens collected. Recommendation: ?- Await pathology results. ? Attending Participation: ? I personally performed the entire procedure. ? _ Moe Smith MD 10/02/2017 11:18:17 AM This report has been signed electronically. Number of Addenda: 0 Note Initiated On: 10/02/2017 10:17 AM PROVATION 10/02/2017 10:1 7 AM EDT Valarie Phillips MD GENERAL SURGICAL ORD [facility] PROVATION documented in this encounter Visit Diagnoses Not on filedocumented in this encounter Active and Recently Administered Medications Times are shown in EDT. PRN Medication Order 09/30/2017 10/01/2017 10/02/2017 fentaNYL 50 mcg/mL multi-dose injection (CANCELED) ONCE PRN, Starting on Thu10/02/17 at 1020, Until Thu10/02/17 at 1416, Intra-Operative (Intra-Procedure), Routine 1020 (Given - Provid er: Taty Mckinney RN)1023 (Given - Provider: Taty Mckinney RN)1027 (Given - Provider: Taty Mckinney RN)1031 (Given - Provider: Moe Smith MD) lidocaine (XYLOCAINE) 2 % jelly (CANCELED) ONCE PRN, Starting on Thu10/02/17 at 1028, Until Thu10/02/17 at 1416, Intra-Operative (Intra-Procedure) 1028 (Given - Provid er: Moe Smith MD) midazolam (PF) (VERSED) 1 mg/mL multi-dose injection (CANCELED) ONCE PRN, Starting on Thu10/02/17 at 1020, Until Thu10/02/17 at 1416, Intra-Operative (Intra-Procedure), Routine 1020 (Given - Provid er: Taty Mckinney RN)1023 (Given - Provider: Taty Mckinney RN)1027 (Given - Provider: Taty Mckinney RN)1031 (Given - Provider: Moe Smith MD) documented in this encounter Care Teams Loft Worker Head Relationship Specialty Start Date End Date Valarie Phillips MD [address] [place] [address] PCP - General General Internal Medicine 09/06/17 documented as of this encounter
--- OUTSIDE RECORDS SUMMARY | 2024-04-14 02:15 | XMS_ITS | Encounter Summary ---
Author Organization [facility] Address [address] [place] [address] Care Team Providers Care Sustainability Purchasing Agent Name Role Phone Berhane Kemp MD Primary Care Provider [phone] Berhane Kemp MD Unavailable [phone] Encounter Details Date Type Department Care Team (Late st Contact Info) Description 02/23/2015 Phlebotomy Only [address] Judge, Outpatient Primary hypercoagulable state (HCC-CMS) (Primary Dx) Social [...] Procedure Name Priority Date/Time Associated Diagnosis Comments PROTEIN C ANTIGEN Routine 02/23/2015 15: 39 EST Primary hypercoagulable state (HCC-CMS) PROTEIN C ACTIVITY STAT 02/23/2015 15 :39 EST Primary hypercoagulable state (HCC-CMS) documented in this encounter Results * (ABNORMAL) PROTEIN C ANTIGEN (02/23/2015 15:39 EST) Protein C Antigen 48(L) 70 - 150 % 02/28/2015 7:12 EST [facility] Comment: (Note) Note: ??Decreased Protein C antigen could reflect acquired conditions (e.g., liver disease, Vitamin K deficiency, warfarin anticoagulation) or a congenital deficiency state. Suggest clinical correlation. Performed or Referred by: [facility]: [facility], [address] , [place] [address], Lab Dir: Flaquito Singer III, MD Blood specimen (specimen) BLOOD SPECIMEN / Unknown 02/23/2015 15:39 EST 02/23/2015 15:52 EST Jamar Morales MD HEMATOLOGY & PF4 ORDERABLES Final Result Performing Organization Address City/[facility]/ZIP Co de Phone Number [facility] [address] [place] [address] * (ABNORMAL) PROTEIN C ACTIVITY (02/23/2015 15:39 EST) Protein C Clot 55(L) 71 - 199 % 02/26/2015 9:45 EST [facility] Comment: a. ??Acquired Protein [...] Unknown 02/23/2015 15:39 EST 02/23/2015 15:52 EST Jamar Morales MD HEMATOLOGY & PF4 ORDERABLES Final Result Performing Organization Address City/[facility]/[place] Co de Phone Number [facility] [address] [place] [address] documented in this encounter Visit Diagnoses Diagnosis Primary hypercoagulable state (HCC-CMS)- Primary Primary hypercoagulable state documented in this encounter Care Teams Sustainability Purchasing Agent Relationship Specialty Start Date End Date Berhane Kemp MD [address] [place] [address] PCP - General 02/21/15 Berhane Kemp MD [address] [place] [address] 02/19/15 documented as of this encounter
--- OUTSIDE RECORDS SUMMARY | 2024-04-14 02:15 | XMS_ITS | Clinical Summary ---
Author Organization [facility] Address [address] [place] [address] Care Team Providers Care Deaf/Hard Of Hearing Specialist Name Role Phone Brehane Kemp MD Primary Care Provider [phone] Berhane Kemp MD Unavailable [phone] Allergies Active Allergy Reactions Criticality Noted Date Comments Polyethylene Glycol Analogues Hives 2014 Medications ibuprofen (MOTRIN) 200 mg tablet Take 200 mg by mouth every 6 hours Active calcium carbonate (TUMS) 200 mg calcium (500 mg) tablet,chewable Take 1 Tab by mouth 4 times daily as needed Active Multivitamins with Minerals tablet Take 1 Tab by mouth daily Active Active Problems Problem Noted Date Diagnosed Date Family history of thrombosis in first degree rel ative 02/24/2015 Overview (02/24/2015): 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 Was tested herself previously and told she had Protein C deficiency. Has never had a VTE. Surgical History Surgery Date Site/Laterality Comments HYSTERECTOMY age 44 GALLBLADDER SURGERY age 54 Medical History Medical History Date Comments Rotator cuff disorder left shoul di, planned surgery IBS (irritable bowel syndrome) p er past [facility] GI documentation Family History Medical History Relation Comments Clotting Disorder Daughter superficial ve nous thrombosis during Clotting Disorder Father ankle clot at age 83 Clotting Disorder Other sister's son w ith arterial clots requiring leg amputation. Apparently had Factor V leiden thought to be from father's side of the family Clotting Disorder Sister aortic clot af ter surgery at age 45. known protein c? Relation Status Comments Daughter Father Other Sister Social History Tobacco Use Types Packs/Day Years Used Date Smoking Tobacco: Former Cigarettes 1 10 0 03/09/1983 - 03/09/1993 Smokeless Tobacco: Never Alcohol Use Standard Drinks/Week Comments Yes 0 (1 standard drink = 0.6 oz pur e alcohol) 1 drink per day Comments Unknown Sex and Gender Information Value Date Recorded Sex Assigned at Not on file Legal Sex Female 17:44 EST Gender Identity Not on file Sexual Orientation Not on file Obstetrics History Last Filed Vital Signs Vital Sign Reading Time Taken Comments Blood Pressure 144/65 02/23/2015 1454 EST Pulse 78 02/23/2015 1454 EST Temperature 35.9 ??C (96.6 ??F) 02/23/2015 1454 EST Respiratory Rate 16 02/23/2015 1454 EST Oxygen Saturation 99% 02/23/2015 1454 EST Inhaled Oxygen Concentration - - Weight 62.6 kg (138 lb 1.6 oz) 02/23/[address] Height - - Body Mass Index - - Plan of Treatment Health Maintenance Due Date Last Done Comments Hepatitis C Screen 1960 COVID-19 Vaccine (2023-25 season) 2023 RSV Immunization ( o r 60+ Years) (1 - 1-dose 75+ series) 2034 Care Teams Deaf/Hard Of Hearing Specialist Relationship Specialty Start Date End Date Berhane Kemp MD [address] [place] [address] PCP - General 02/21/15 Berhane Kemp MD [address] [place] [address] 02/19/15
--- OUTSIDE RECORDS SUMMARY | 2024-04-14 02:15 | XMS_ITS | Encounter Summary ---
[place] [address] Care Team Providers Care [employer] Coach Name Role Phone Valarie Phillips MD Primary Care Provider [phone] Reason for Referral * Diagnostic Test (Routine) - Closed Specialty Diagnoses / Procedures Referred By Vashti zeng Referred To Contact Radiology Diagnoses Crohn's disease of large intestine with other complication Procedures MRI Enterography wwo Contrast Mira Perdomo MD [facility] [place] [address] [place] [address] Referral ID Status Reason Start Date Expiration Date V isits Requested Visits Authorized [id number] Closed Specialty Service Requested 10/16/2017 12/14/2017 1 1 Reason for Visit * Reason Comments GI Problem * Consultation (Routine) - Specialty Diagnoses / Procedures Referred By Vashti zeng Referred To Contact Gastroenterology Procedures consult Moe Smith MD [facility] [place] [address] Mira Perdomo MD [facility] [place] [address] Referral ID Status Reason Start Date Expiration Date V isits Requested Visits Authorized [id number] 10/07/2017 10/07/2018 1 1 Encounter Details Date Type Department Care Team (Late st Contact Info) Description 10/14/2017 8:00 AM EDT Office Visit Gastroenterology at [facility] [place] [address] Mira Perdomo MD [facility] [place] [address] Crohn's disease of large intestine with other complication Social History Tobacco Use Types Packs/Day [...] Sign Reading Time Taken Comments Blood Pressure 123/54 10/14/2017 7:48 AM EDT Pulse 78 10/14/2017 7:48 AM EDT Temperature - - Respiratory Rate - - Oxygen Saturation - - Inhaled Oxygen Concentration - - Weight 58.7 kg (129 lb 6.4 oz) 10/14/2017 7:48 A M EDT Height 152.4 cm (5') 10/14/2017 7:48 AM EDT Body Mass Index 25.27 10/14/2017 7:48 AM EDT documented in this encounter Patient Instructions * Patient Instructions* Mira Perdomo MD - 10/14/2017 8:00 AM EDT Thanks for coming in for clinic. 1. MRE to look for Crohn's of the small intestine 2. Labs today for CBC, liver tests, kidney function, hepatitis B, quantiferon b 3. Humira prescription will be written once these labs return. We can do teaching for you here witha nurse visit or you can call our Nurses to find out how to get the Humira company to come to your house for a teaching visit. I would like for you to read more about the drugs used to treat Crohn's disease from the crohn's colitis foundation website at [email or web address] documented in this encounter Progress Notes * Mira Perdomo MD - 10/14/2017 8:00 AM EDT [facility] Division of Gastroenterology and Hepatology Outpatient Consultation Reason for Visit: ?Crohn's disease Referred by Moe Smith History of Present Illness: Janice Mahoney is a 57 y.o. female with PMH significant for hemorrhoid surgery who is seen in consultation for new diagnosis of Crohn's disease. Last summer, she felt like all of sudden she had hemorrhoids. They seem to get bigger and bigger. She tried some cortisone. She was having a significant amount of pain with bowel movements, standing,and sitting all made the pain worse. She was having rectal bleeding as well. She denied any nausea,vomiting. In April, she underwent excisional hemorrhoidectomy. She has had left sided abdominal pain associated with bowel movements, but also sometimes with her bowel movements. Often times she will get diarrhea after eating preservatives in foods. She has had left sided pain with her constipation. In the am, she will go a little bit. She will have three little bowel movements. She feels likeshe has trouble getting stools through. After the surgery, she would have bleeding in the am, even when passing flatus. She tried steroid suppositories, lidocaine gel and other compound. Sitz baths 2-3 times per day, it helps most with pain. She has decreased in appetite. Review of Systems: Constitutional: Slight weight loss HEENT: No visual changes, URI symptoms Cardio: No chest pain Resp: No cough, no SOB Hem/Lymph: no new lumps or bumps on body GI: see HPI : no dysuria Skin: no new rashes Musculoskeletal: longstanding joint pains Neuro: no new numbness, weakness in extremities All other systems negative except as above in HPI GI Problem List: Crohn's Colitis: ?? Colonic, perianal disease ?? Symptoms: worsening hemorrhoids April 2017 undergoes excisional hemorrhoidectomy that did not heal ?? 10/02/17: Colonoscopy ([facility] Large perianal inflamed skin tags ??found on perianal exam. - The descending colon, splenic flexure, transverse colon, hepatic ?flexure, ascending colon, cecum, appendiceal orifice and terminal ileum are normal. ?- Diverticulosis asso ciated with stricturing in the sigmoid colon and in the descending colon. There was possible subtleinflammation in the rectum and sigmoid. PATH: Sigmoid and rectum: Chronic active colitis with multiple noncaseating granulomas that also involve ??submucosa Patient Active Problem List Diagnosis ??? Anal [...] 3.66) performed by Moe Smith MD at [facility] ENDOSCOPY ??? PRO COLONOSCOPY, DIAGNOSTIC 02/19/2012 COLONOSCOPY, DIAGNOSTIC performed by Nathanael Pyle MD at [facility] ENDOSCOPY Social History: reports that she has quit smoking. She has never used smokeless tobacco. She reports that she drinks about 3.0 oz of alcohol per week Family History: family history includes Cancer in her maternal grandmother and paternal grandmother. Current Outpatient Prescriptions Medication Sig Dispense Refill ??? lidocaine (XYLOCAINE) 2 % jelly APPLY TO AFFECTED AREA FOUR TIMES DAILY NEEDED FOR PAIN 0 ??? lactobacillus rhamnosus, GG, (CULTURELLE) 10 billion cell Capsule Take 1 capsule by mouth daily. ??? DILTIAZEM HCL, BULK, MISC by Misc.(Non-Drug; Combo Route) route. Gel ??? ibuprofen (ADVIL;MOTRIN) 200 mg Tablet Take 200 mg by mouth. ??? Guar Gum Packet Take by mouth. ??? calcium carbonate (TUMS) 200 mg calcium (500 mg) Tablet, Chewable Take by mouth. ??? acyclovir (ZOVIRAX) 200 mg Capsule ??? docusate sodium (COLACE ORAL) Take by mouth. No current facility-administered medications for this visit. Allergies Allergen Reactions ??? [place] ??? Polyethylene Glycol Analogues Hives Physical Examination: BP 123/54 Pulse 78 Ht 152.4 cm (5') Wt 58.7 kg (129 lb 6.4 oz) BMI 25.27 kg/m2 General:Pleasant, cooperative, NAD HEENT: NC/AT, MMM Eyes: anicteric sclera Neck: soft, supple, no cervical LAD Resp: CTAB, no wheeze, rale or rhonchi CVS:RRR, normal s1/s2, No MRG ABD: soft, NABS, NT/ND Rectal: Large waxy skin tags. Extremities: No clubbing, cynanosis or edema Skin:No rashes Neuro: Grossly non-focal. Psych: Normal mood Labs: Reviewed in EDH/Scan Docs No results found for: WBC, HGB, HCT, MCV, PLATELET Chemistry No results found for: NA, K, CL, CO2, BUN, CREATININE No results found for: CALCIUM, ALKPHOS, AST, ALT, BILITOT No results found for: ALT, AST, GGT, ALKPHOS, BILITOT Additional Testing: Reviewed available labs, imaging and endoscopy results in EDH/CIS as well as Scan Docs tab. IMPRESSION: Janice Mahoney is a 57 y.o. with PMH significant for hemorrhoid surgery who is seen in consultation for new diagnosis of Crohn's disease. Based on the appearance of her skin tags along with chronic colitis of her colon and rectum showingnoncaseating granulomas, it seems very likely that her symptoms are indeed related to a new diagnosis of Crohn's disease. Discussed while she does have colonic disease would recommend a MRE to assessfor any small bowel disease. We discussed regardless of these results would recommend her initiating therapy. With her perianal disease along with colonic disease would recommend starting with a biologic. We discussed starting Humira versus Remicade based on insurance coverage. We discussed the risks and benefits of starting Anti-TNF therapy. The risks reviewed include immediate and delayed infusion/injection site reactions; development of antibodies that might reduce efficacy or promote allergic bro ctions, infection, including rare opportunistic infections, including tuberculosis or histoplasmosis in addition to upper respiratory infections. More rare side effects include positive qafc-jkjhzd-yqroypud DNA antibodies, rarely a lupus-like syndrome; slightly increased risk of lymphoma, very raredemyelinating neurologic disease; CHF. For additional information, I provided her with a website for the Crohn's colitis foundation. RECOMMENDATIONS: # CBC, CMP, CRP, Quant Gold, and Hep B serologies # Starting Humira with standard dosing # MRE Follow up in 3 months. [place] [address] P: [phone] F: [phone] documented in this encounter Miscellaneous Notes * Addendum Note - Mira Perdomo MD - 10/14/2017 2:50 PM EDTAddended by: MIRA PERDOMO on: 10/14/2017 02:50 PM Modules accepted: Orders documented in this encounter Plan of Treatment Upcoming Encounters Date Type Department Care Team (Late st Contact Info) Description 07/18/2024 1:00 PM EDT TH Visit (TeleHealth) [place] [address] [facility] [place] [address] documented as of this encounter Procedures Procedure Name Priority Date/Time Associated Diagnosis Comments CRP, ACUTE INFLAMMATION Routine 10/14/2017 9:16 AM EDT Crohn's disease of large intestine with other complication HEMOGRAM Routine 10/14/2017 9:16 AM EDT Crohn's disease of large intestine with other complication COMPREHENSIVE METABOLIC PANEL Routine 10/14/2017 9:16 AM EDT Crohn's disease of large intestine with other complication documented in this encounter Results * MRI Enterography wwo Contrast (10/29/2017 11:35 AM EDT) Anatomical Region Laterality Modality Abdomen Magnetic Resonan ce Impressions 10/29/2017 1:03 PM EDT 1. ??Approximate 10 cm area of distal descending to sigmoid colon involved with active Crohn's disease as described above. 2. ??Second focal segment involving mid small bowel as described above with likely Crohn's disease which appears less severe than the colonic segment. Narrative 10/29/2017 1:03 PM EDT EXAMINATION: MRI ENTEROGRAPHY WWO CONTRAST CLINICAL HISTORY: Croh'ns colitis with perianal involvement. Rule out small bowel Crohns TECHNIQUE: ??MRI of the abdomen and pelvis was performed with images obtained prior to and following intravenous administration of 12ml of Dotarem. ??1ml glucagon was also administered. COMPARISON: None FINDINGS: GI tract: Abnormal circumferential wall thickening and luminal narrowing are seen in an approximate 10 cm segment of colon, involving the distal descending colon and sigmoid colon. This area also mucosal and mural enhancement on the multiple postcontrast images (series 20, images 102 through 115). This area is compatible with active Crohn's disease. A second area ??is seen in the mid small bowel in the LEFT hemiabdomen. This area exhibits wall thickening with focal transmural enhancement (series 16, image 32 in the colon series 6, image 44). Disease location: Distal descending colon and sigmoid colon; mid small bowel # diseased segments: 2 Length of involvement: Proximally 10 cm from the colonic segment and approximately 3 to 5 cm of the small bowel segment Imaging appearance: Inflammation: Present Stricture: Luminal narrowing Penetrating disease: Present Peritoneum/mesentery: Peritoneal stranding/inflammation adjacent to the sigmoid colonic site Change from prior: Not applicable Extra-intestinal findings: Liver: Normal signal, no lesions. Bile ducts: Nondilated. Gallbladder: Not visualized Pancreas: Normal. Spleen: Normal. Adrenals: Normal. Kidneys: Normal. Lymph nodes: No lymphadenopathy. Reproductive structures: The LEFT adnexa may be involved with the inflammatory process involving the adjacent sigmoid colon (series 6, image 57) Osseous structures: No marrow signal abnormality. Procedure Note Jitendra Walden MD - 10/29/2017 EXAMINATION: MRI ENTEROGRAPHY WWO CONTRAST CLINICAL HISTORY: Croh'ns colitis with perianal involvement. Rule outsmall bowel Crohns TECHNIQUE: MRI of the abdomen and pelvis was performed with imagesobtained prior to and following intravenous administration of 12ml of Dotarem.1ml glucagon was also administered. COMPARISON: None FINDINGS: GI tract: Abnormal circumferential wall thickening and luminal narrowingare seen in an approximate 10 cm segment of colon, involving the distaldescending colon and sigmoid colon. This area also mucosal and mural enhancement onthe multiple postcontrast images (series 20, images 102 through 115). Thisarea is compatible with active Crohn's disease. A second area is seen in the midsmall bowel in the LEFT hemiabdomen. This area exhibits wall thickening withfocal transmural enhancement (series 16, image 32 in the colon series 6, image44). Disease location: Distal descending colon and sigmoid colon; mid smallbowel # diseased segments: 2 Length of involvement: Proximally 10 cm from the colonic segment and approximately 3 to 5 cm of the small bowel segment Imaging appearance: Inflammation: Present Stricture: Luminal narrowing Penetrating disease: Present Peritoneum/mesentery: Peritoneal stranding/inflammation adjacent to thesigmoid colonic site Change from prior: Not applicable Extra-intestinal findings: Liver: Normal signal, no lesions. Bile ducts: Nondilated. Gallbladder: Not visualized Pancreas: Normal. Spleen: Normal. Adrenals: Normal. Kidneys: Normal. Lymph nodes: No lymphadenopathy. Reproductive structures: The LEFT adnexa may be involved with theinflammatory process involving the adjacent sigmoid colon (series 6, image 57) Osseous structures: No marrow signal abnormality. IMPRESSION 1. Approximate 10 cm area of distal descending to sigmoid colon involvedwith active Crohn's disease as described above. 2. Second focal segment involving mid small bowel as described abovewith likely Crohn's disease which appears less severe than the colonicsegment. 1:03 PM Mira Perdomo MD IM MRI ORDERABL ES * (ABNORMAL) Comprehensive metabolic panel (non-fasting) (10/14/2017 9:16 AM EDT) Glucose 97 65 - 199 mg/dL [facility] Comment:Diabetes: >=200 mg/d L plus symptoms Blood Urea Nitrogen 10 8 - 18 mg/dL [facility] Creatinine 0.64(L) 0.70 - 1.20 mg/dL [facility] Sodium 140 135 - 145 mmol/L [facility] Potassium 4.5 3.5 - 5.0 mmol/L [facility] Comment: Please note: ??Patients with WBC >100,000 may have falsely elevated Potassium levels. ??For accurate Potassium quantification in these patients send serum separator tube (gold top) for subsequent determinations. ??Contact the Clinical Chemistry Laboratory if there are any questions. Chloride 99 98 - 107 mmol/L [facility] Carbon Dioxide 25 22 - 31 mmol/L [facility] Anion Gap 16(H) 5 - 15 mmol/L [facility] Calcium 9.0 8.5 - 10.5 mg/dL [facility] Protein, Total 7.3 6.1 - 8.0 gm/dL [facility] Albumin 3.8 3.2 - 5.2 gm/dL [facility] Aspartate Aminotransferase 16 0 - 30 unit/L [facility] Alanine Aminotransferase 14 0 - 30 unit/L [facility] Alkaline Phosphatase 98 40 - 104 unit/L [facility] Bilirubin, Total 0.2 0.2 - 1.3 mg/dL [facility] Est Glomerular Filtration Rate 98 >=60 mL/min/1. 73 m?? [facility] Comment: The eGFR was calculated using the CKD-EPI equation. As with all creatinine based estimates of kidney function, eGFR values calculated with the CKD-EPI equation are not accurate in patients with acute kidney failure, extremes of body mass or the acutely ill. [email or web address]/[facility] eGFR 114 >=60 mL/min/1. 73 m?? [facility] Comment: The eGFR was calculated using the CKD-EPI equation. As with all creatinine based estimates of kidney function, eGFR values calculated with the CKD-EPI equation are not accurate in patients with acute kidney failure, extremes of body mass or the acutely ill. [email or web address]/[facility]kf Blood specimen (specimen) 10/14/2017 9:16 AM EDT 10/14/2017 9:23 AM EDT Narrative Resulting Agency Comment Spec In Lab Mira Perdomo MD CHEMISTRY ORDERA BLES [facility] [place] [address] * (ABNORMAL) Hemogram (10/14/2017 9:16 AM EDT) White Blood Cell 6.8 4.0 - 9.5 x10(3)/mc L [facility] Red Blood Cell 3.84(L) 4.00 - 5.21 x10(6)/mc L [facility] Hemoglobin 11.6(L) 11.7 - 15.5 gm/dL [facility] Hematocrit 34.6(L) 35.7 - 45.8 % [facility] Mean Cell Volume 90.1 82.6 - 94.4 fL [facility] Mean Cell Hemoglobin 30.2 27.1 - 32.0 pg [facility] Mean Cell Hemoglobin Concentration 33.5 31.7 - 35.0 gm/dL [facility] Platelet 377(H) 145 - 357 x10(3)/mc L [facility] RDW Standard Deviation 40.9 37.0 - 46.0 fL [facility] RDW coefficient of variation 12.5 11.5 - 14.1 % [facility] Mean Platelet Volume 8.3 7.6 - 12.9 fL [facility] NRBC% auto 0.0 % [facility] NRBC Absolute 0.000 0.000 - 0.000 x10(3)/mc L [facility] Blood specimen (specimen) 10/14/2017 9:16 AM EDT 10/14/2017 9:23 AM EDT Narrative Resulting Agency Comment Spec In Lab Mira Perdomo MD HEMATOLOGY ORDER RAFFI [facility] [place] [address] * (ABNORMAL) CRP, acute inflammation (10/14/2017 9:16 AM EDT) C-Reactive Protein 10.1(H) <=4.9 mg/L [facility] Blood specimen (specimen) 10/14/2017 9:16 AM EDT 10/14/2017 9:23 AM EDT Narrative Resulting Agency Comment Spec In Lab Mira Perdomo MD CHEMISTRY ORDERA BLES [facility] [place] [address] documented in this encounter Visit Diagnoses Diagnosis Crohn's disease of large intestine with other complication Crohn's disease of large intestine with other complication documented in this encounter Care Teams [employer] Relationship Specialty Start Date End Date Valarie Phillips MD [address] [facility] [place] [address] PCP - General General Internal Medicine 09/06/17 documented as of this encounter
--- OUTSIDE RECORDS SUMMARY | 2024-04-14 02:15 | XMS_ITS | Encounter Summary ---
Author Organization [facility] [place] [address] Care Team Providers Care Grazing Aide Name Role Phone Berhane Kemp MD Primary Care Provider [phone] Encounter Details Date Type Department Care Team (Late st Contact Info) Description 02/19/2012 9:30 AM EST - 02/19/2012 10:15 AM EST [place] [phone] Nathanael Pyle MD [facility] [place] [address] COLONOSCOPY, DIAGNOSTIC (WRVU 3.26) Social History Tobacco Use Types Packs/Day Years [...] Sign Reading Time Taken Comments Blood Pressure 139/63 02/19/2012 9:48 AM EST Pulse 99 02/19/2012 9:48 AM EST Temperature 36.3 ??C (97.3 ??F) 02/19/2012 8:51 AM ES T Respiratory Rate 16 02/19/2012 9:48 AM EST Oxygen Saturation 98% 02/19/2012 9:48 AM EST Inhaled Oxygen Concentration - - Weight 61.2 kg (135 lb) 02/19/2012 8:51 AM EST Height 152.4 cm (5') 02/19/2012 8:51 AM EST Body Mass Index 26.37 02/19/2012 8:51 AM EST documented in this encounter Discharge Instructions * Discharge Instructions* Khushi Arreola RN - 02/19/2012 9:50 AM EST If questions or concerns please call [phone], after 5 PM call [phone] and ask for the GI Doc transportation broker. You may have received medication before and/or during your procedure which effects judgement and reaction time. Do not drive, operate machinery, drink alcoholic beverages, or make important decisions for 24 hours. Be careful on stairs, as you may be unsteady on your feet. You may eat a regular diet as tolerated. Do not smoke if you are alone. IV site-- slight redness or tenderness is normal. You may use a warm compress. If tenderness and redness increases or foul drainage occurs please contact your M.D. Discharge instructions reviewed with patient who expresses understanding. * Patient Instructions* Nathanael Pyle MD - 02/19/2012 9:36 AM EST Please see Recommendations in the Provation procedure report which is documented in the procedural note in E-DH. * Attachments The following attachments cannot be sent through Care Everywhere. * COLONOSCOPY: WHAT TO EXPECT AT HOME (NEPALESE) documented in this encounter H&P Notes * Nathanael Pyle MD - 02/19/2012 8:57 AM EST Gastroenterology and Hepatology Pre-Procedure History and Physical Exam Procedure: Colonoscopy: Indication: Screening There is no problem list on file for this patient. EXAM: HEENT: Airway examined, oropharynx clear LUNGS: Clear to auscultation HEART: Regular rate and rhythm, normal S1, S2 ABDOMEN: Normal bowel sounds, soft, non tender, non distended, A/P Proceed with the planned endoscopic procedure. Risks and benefits of the procedure explained to the patient. Consent signed. documented in this encounter Miscellaneous Notes * Miscellaneous - Provider, Scanning - 02/19/2012 10:21 PM EST * Miscellaneous - Provider, Scanning - 02/19/2012 10:28 AM EST * OR Attestation - Nathanael Pyle MD - 02/19/2012 9:35 AM EST Attestation: Case Date: 02/19/2012 I performed this procedure without the involvement of a resident. NATHANAEL PYLE MD 02/19/2012 documented in this encounter Plan of Treatment Upcoming Encounters Date Type Department Care Team (Late st Contact Info) Description 07/18/2024 1:00 PM EDT TH Visit (TeleHealth) [place] [address] Malinda Christopher MD [facility] [place] [address] documented as of this encounter Procedures Procedure Name Priority Date/Time Associated Diagnosis Comments COLONOSCOPY, DIAGNOSTIC (WRVU 3.26) 02/19/2012 9:11 AM EST screening COLONOSCOPY Routine 02/19/2012 8:56 AM EST documented in this encounter Results * COLONOSCOPY (02/19/2012 8:56 AM EST) COLONOSCOPY [facility] Endoscopy ___ Patient Name: Janice Mahoney ? Procedure Date: 02/19/2012 8:56 AM ? Date of : 1960 ? Age: 51 ? Order #: [id number] ? ___ Procedure: ? Colonoscopy Indications: ? Screening for colorectal malignant ? neoplasm Providers: ? Nathanael Pyle MD, Lissett Calle, ? RN, Ivet Antony, Data Entry Coordinator Referring : ?Berhane Kemp MD Medicines: ? Midazolam 3.5 mg IV, Fentanyl 175 ? micrograms IV, Diphenhydramine 25 mg ? IV Complications: ? No immediate complications. ___ [...] procedure were verified by ? the physician and the nurse in the ? pre-procedure area. Mental Status ? Examination: alert and oriented. ? Airway Examination: normal ? oropharyngeal airway and neck ? mobility. Respiratory Examination: ? clear to auscultation. CV ? Examination: normal. Prophylactic ? Antibiotics: The patient does not ? require prophylactic antibiotics. ? Prior Anticoagulants: The patient has ? taken no previous anticoagulant or ? antiplatelet agents. ASA Grade ? Assessment: I - A normal, healthy ? patient. After reviewing the risks ? and benefits, the patient was deemed ? in satisfactory condition to undergo ? the procedure. [...] and under direct visualization, ? advanced to the terminal ileum. ? Careful inspection was made as the ? colonoscope was withdrawn. The ? colonoscopy was performed without ? difficulty. The patient tolerated the ? procedure well. Scope withdrawal time ? was 7 minutes. The quality of the ? bowel preparation was excellent and ? adequate to identify polyps. ? Findings: ? The perianal and digital rectal examinations were ? normal. Internal hemorrhoids were found during ? retroflexion. The terminal ileum appeared normal. The ? exam was otherwise without abnormality on direct and ? retroflexion views. Multiple small and large-mouthed ? diverticula were found in the sigmoid colon and in ? the ascending colon. ? Impression: ?- Internal hemorrhoids. ? - Diverticulosis. ? - The examination was otherwise ? normal. Recommendation: ?- Repeat colonoscopy in 10 years for ? screening purposes. ? Nathanael Pyle MD 02/19/2012 9:40 AM This report has been signed electronically. Number of Addenda: 0 Note Initiated On: 02/19/2012 8:56 AM PROVATION 02/19/2012 8:56 AM EST Berhane Kemp MD GENERAL SURGICAL ORD ERABLES PROVATION documented in this encounter Visit Diagnoses Not on filedocumented in this encounter Administered Medications Inactive Administered Medications - up to 3 most recent administrations Medication Order MAR Action Action Date Dose Rate Site diphenhydrAMINE (BENADRYL) injection ONCE PRN, Starting on Perla 02/19/12 at 0924, Until Perla 02/19/12 at 1438, Itching, Intra-Operative (Intra-Procedure), Routine Given 02/19/2012 9:24 AM EST 25 mg fentaNYL 50mcg/mL injection ONCE PRN, Starting on Perla 02/19/12 at 0915, Until Perla 02/19/12 at 1438, Pain, Intra-Operative (Intra-Procedure), Routine Given 02/19/2012 9:24 AM EST 25 mcg Right Arm Given 02/19/2012 9:21 AM EST 50 mcg Ri ght Arm Given 02/19/2012 9:18 AM EST 50 mcg Ri ght Arm midazolam (VERSED) injection ONCE PRN, Starting on Perla 02/19/12 at 0915, Until Perla 02/19/12 at 1438, Sleep, Intra-Operative (Intra-Procedure), Routine Given 02/19/2012 9:24 AM EST 0.5 mg Right Arm Given 02/19/2012 9:21 AM EST 1 mg Ri ght Arm Given 02/19/2012 9:18 AM EST 1 mg Ri ght Arm documented in this encounter Active and Recently Administered Medications Times are shown in EST. PRN Medication Order 02/17/2012 02/18/2012 02/19/2012 diphenhydrAMINE (BENADRYL) injection (CANCELED) ONCE PRN, Starting on Perla 02/19/12 at 0924, Until Perla 02/19/12 at 1438, Itching, Intra-Operative (Intra-Procedure), Routine 09 (Given - Provid er: Lissett Calle RN - Comment: pt uncomfortable) fentaNYL 50mcg/mL injection (CANCELED) ONCE PRN, Starting on Perla 02/19/12 at 0915, Until Perla 02/19/12 at 1438, Pain, Intra-Operative (Intra-Procedure), Routine 0915 (Given - Provid er: Lissett Calle RN - Comment: starting sedation)0918 (Given - Provider: Lissett Calle RN - Comment: continuing sedation)09 (Given - Provider: Lissett Calle RN - Comment: pt uncomfortable)09 (Given - Provider: Lissett Calle RN - Comment: pt uncomfortable - grimacing) midazolam (VERSED) injection (CANCELED) ONCE PRN, Starting on Perla 02/19/12 at 0915, Until Perla 02/19/12 at 1438, Sleep, Intra-Operative (Intra-Procedure), Routine 0915 (Given - Provid er: Lissett Calle RN - Comment: starting sedation)0918 (Given - Provider: Lissett Calle RN - Comment: continuing sedation)09 (Given - Provider: Lissett Calle RN - Comment: pt uncomfortable- 'THAT'S CRAMPY)0924 (Given - Provider: Lissett Calle RN - Comment: PT UNCOMFORTABLE) documented in this encounter Care Teams Grazing Aide Relationship Specialty Start Date End Date Berhane Kemp MD [address] [place] [address] PCP - General 01/29/10 03/04/15 documented as of this encounter
--- OUTSIDE RECORDS SUMMARY | 2024-04-14 02:15 | XMS_ITS | Encounter Summary ---
Author [place] [address] Care Team Providers Care Head Banquet Waitress Name Role Phone Valarie Phillips MD Primary Care Provider [phone] Encounter Details Date Type Department Care Team (Late st Contact Info) Description 10/16/2017 Telephone [place] [address] Yarelis Milian Social History Tobacco Use Types [...] * Telephone Encounter - Yarelis Milian - 10/16/2017 8:47 AM EDT Images from the original note were not included. Message Received: Yesterday ? Bee Tejeda MD [place], [place] ? Can you move up her appointment to 6-8 weeks? Also can you ask here where to fax over the Hep B and Quant Gold tests? Can you then fax them to wherever she says Thanks Bee documented in this encounter Plan of Treatment Upcoming Encounters Date Type Department Care Team (Late st Contact Info) Description 07/18/2024 1:00 PM EDT TH Visit (TeleHealth) [place] [phone] Malinda Christopher MD [facility] [place] [address] documented as of this encounter Visit Diagnoses Not on filedocumented in this encounter Care Teams Head Banquet Waitress Relationship Specialty Start Date End Date Valarie Phillips MD [address] [place] [address] PCP - General General Internal Medicine 09/06/17 documented as of this encounter
--- OUTSIDE RECORDS SUMMARY | 2024-04-14 02:15 | XMS_ITS | Encounter Summary ---
[place] [address] Care Team Providers Care Equine Internship Name Role Phone Valarie Phillips MD Primary Care Provider [phone] Encounter Details Date Type Department Care Team (Late Contact Info) Description 10/29/2017 Telephone [place] [phone] Meme Garza RN Social History Tobacco Use [...] encounter Miscellaneous Notes * Telephone Encounter - Meme Garza RN - 10/29/2017 8:19 AM EDT Prior Authorization Medication: Humira Dosage: 160 mg day 0, 80 mg day 14, then 40 mg every 14 days Frequency & Route: SC see above Insurance & Phone #: [employer] [phone] ID #: [id number] Trialed (dosage, frequency): Prednisone 40 mg with taper Diagnosis/ICD-10: Crohn's disease/ K50.118 Notes: approved 09/29/17-01/27/18 Quantity case for starter pack approved # [id number], 09/29/17-11/28/17 documented in this encounter Plan of Treatment Upcoming Encounters Date Type Department Care Team (Late st Contact Info) Description 07/18/2024 1:00 PM EDT TH Visit (TeleHealth) [place] [address] Malinda Christopher MD [facility] [place] [address] documented as of this encounter Visit Diagnoses Not on filedocumented in this encounter Care Teams Equine Internship Relationship Specialty Start Date End Date Valarie Phillips MD [address] [place] [address] PCP - General General Internal Medicine 09/06/17 documented as of this encounter
--- OUTSIDE RECORDS SUMMARY | 2024-04-14 02:15 | XMS_ITS | Encounter Summary ---
[place] [address] Care Team Providers Care Childcare Worker Name Role Phone Valarie Phillips MD Primary Care Provider [phone] Reason for Visit * Diagnostic Test (Routine) - Closed Specialty Diagnoses / Procedures Referred By Vashti zeng Referred To Contact Radiology Diagnoses Crohn's disease of large intestine with other complication Procedures MRI Enterography wwo Contrast Bee Tejeda MD [facility] [place] [address] [facility] [place] [address] Referral ID Status Reason Start Date Expiration Date V isits Requested Visits Authorized [id number] Closed Specialty Service Requested 10/16/2017 12/14/2017 1 1 Encounter Details Date Type Department Care Team (Latest Contact Info) Description 10/29/2017 9:01 AM EDT - 10/29/2017 11:59 PM EDT Hospital [place] [address] Bee Tejeda MD [facility] [place] [address] Discharge Disposition: Home Social History Tobacco Use [...] Sig Dispensed Refills Start Date End Date predniSONE (DELTASONE) 5 mg Tablet 40 mg x 3 days, 30 mg x 1 day, 20 mg x 1 day, 10 mg x 1 day, 5 mg x 1 day 19 tablet 10/29/2017 07/04/2019 Adalimumab (HUMIRA PEN CROHN'S[facility] START) 40 mg/0.8 mL Pen Injector KitIndications:Crohn' s disease of large intestine with other complication Inject 160 mg subcutaneously on day 0, then 80 mg on day 14, then 40 mg every 14 days 4 Pen 10/23/2017 11/05/2017 NIFEdipine, Bulk, Powder 0.2% ointment apply to anus two times daily 2.5 g 10/19/2017 02/03/2022 lidocaine (XYLOCAINE) 2 % jelly Apply topically 4 times daily as needed. 30 mL 10/16/2017 03/04/2018 lactobacillus rhamnosus, GG, (CULTURELLE) 10 billion cell Capsule Take 1 capsule by mouth daily. 02/03/2022 DILTIAZEM HCL, BULK, MISC by Misc.(Non-Drug; Combo Route) route. Gel 02/03/2022 ibuprofen (ADVIL;MOTRIN) 200 mg Tablet Take 200 mg by mouth. 2017 calcium carbonate (TUMS) 200 mg calcium (500 mg) Tablet, Chewable Take by mouth. 02/19/2018 acyclovir (ZOVIRAX) 200 mg Capsule 06/05/2017 02/03/2022 Guar Gum Packet Take by mouth. 02/03/2022 docusate sodium (COLACE ORAL) Take by mouth. 02/03/2022 documented as of this encounter Plan of Treatment Upcoming Encounters Date Type Department Care Team (Late st Contact Info) Description 07/18/2024 1:00 PM EDT TH Visit (TeleHealth) [place] [phone] Malinda Christopher MD [facility] [place] [address] documented as of this encounter Procedures Procedure Name Priority Date/Time Associated Diagnosis Comments MRI ENTEROGRAPHY WITH/WO CONTRAST Routine 10/29/2017 11:35 AM EDT Crohn's disease of large intestine with other complication documented in this encounter Visit Diagnoses Not on filedocumented in this encounter Administered Medications Inactive Administered Medications - up to 3 most recent administrations Medication Order MAR Action Action Date Dose Rate Site flavored contrast (BREEZA) oral liquid 1,500 mL 1,500 mL, Oral, ONCE PRN, 1 dose, Starting on Perla 10/29/17 at 1048, Until Perla 10/29/17 at 0900, Per Protocol, Routine Given 10/29/2017 9:00 AM EDT 1,500 mLs gadoterate meglumine (DOTAREM) 0.5 mmol/mL (376.9 mg/mL) injection 0-20 mL 0-20 mL, Intravenous, ONCE PRN, 1 dose, Starting on Perla 10/29/17 at 1048, Until Perla 10/29/17 at 1127, Per Protocol, Radiology Contrast, Routine Given 10/29/2017 11:27 AM EDT 12 mLs documented in this encounter Care Teams Childcare Worker Relationship Specialty Start Date End Date Valarie Phillips MD [address] [place] [address] PCP - General General Internal Medicine 09/06/17 documented as of this encounter
--- OUTSIDE RECORDS SUMMARY | 2024-04-14 02:15 | XMS_ITS | Referral Summary ---
Author Organization [facility] Address [address] [place] [address] Care Team Providers Care Geographical Historian Name Role Phone Berhane Kemp MD Primary Care Provider [phone] Berhane Kemp MD Unavailable [phone] Allergies Active Allergy Reactions Criticality Noted Date [...] rel ative 02/24/2015 Overview (02/24/2015): Part of [facility] luisa with Protein C deficiency. Was tested herself previously and told she had Protein C deficiency. Has never had a VTE. Social History Tobacco Use Types Packs/Day Years [...] Mass Index - - Plan of Treatment Not on file Care Teams Geographical Historian Relationship Specialty Start Date End Date Berhane Kemp MD [address] [place] [address] PCP - General 02/21/15 Berhane Kemp MD [address] [place] [address] 02/19/15
--- OUTSIDE RECORDS SUMMARY | 2024-04-14 02:15 | XMS_ITS | Encounter Summary ---
Author Organization [facility] [place] [address] Care Team Providers Care Airfreight Operations Agent Name Role Phone Berhane Kemp MD Primary Care Provider [phone] Encounter Details Date Type Department Care Team (Latest Contact Info) Description 02/19/2012 8:38 AM EST - 02/19/2012 11:15 AM EST Hospital Encounter [place] [phone] Nathanael Pyle MD [facility] [address] [place] [address] Discharge Disposition: Home Social History Tobacco Use [...] EST If questions or concerns please call [phone], after 5 PM call [phone] and ask for the GI Doc chronometer tester. You may have received medication before and/or [...] * COLONOSCOPY: WHAT TO EXPECT AT HOME ([place]UAY[place]) documented in this encounter H&P Notes * [...] PM EDT TH Visit (TeleHealth) [place] [address] Malinda Christopher MD [facility] [place] [address] documented as of this encounter Procedures Procedure Name Priority Date/Time Associated Diagnosis Comments COLONOSCOPY, DIAGNOSTIC (WRVU 3.26) 02/19/2012 9:11 AM EST screening COLONOSCOPY Routine 02/19/2012 8:56 AM EST documented in this encounter Results * COLONOSCOPY (02/19/2012 8:56 AM EST) COLONOSCOPY [facility] Endoscopy ___ Patient Name: Janice Mahoney ? Procedure Date: 02/19/2012 8:56 AM ? Date of : 1960 ? Age: 51 ? Order #: [id number] ? ___ Procedure: ? Colonoscopy Indications: ? Screening for colorectal malignant ? neoplasm Providers: ? Nathanael Pyle MD, Lissett Calle, ? RN, Ivet Antony, Boiler Attendant Referring : ?Berhane Kemp MD Medicines: ? [...] Berhane Kemp MD GENERAL SURGICAL ORD ERABLES Performing Organization Address City/State/[facility] Co de Phone Number PROVATION documented in this encounter Visit Diagnoses Not on filedocumented in this encounter Active and Recently Administered Medications Times are shown in EST. PRN Medication Order 02/17/2012 02/18/2012 02/19/2012 diphenhydrAMINE (BENADRYL) injection (CANCELED) ONCE PRN, Starting on Perla 02/19/12 at 0924, Until Perla 02/19/12 at 1438, Itching, Intra-Operative (Intra-Procedure), Routine 923 (Given - Provid er: Lissett Calle RN - Comment: pt uncomfortable) fentaNYL 50mcg/mL injection (CANCELED) ONCE PRN, Starting on Perla 02/19/12 at 0915, Until Perla 02/19/12 at 1438, Pain, Intra-Operative (Intra-Procedure), Routine 09 (Given - Provid er: Lissett Calle RN - Comment: starting sedation)917 (Given - Provider: Lissett Calle RN - Comment: continuing sedation)920 (Given - Provider: Lissett Calle RN - Comment: pt uncomfortable)0924 (Given - Provider: Lissett Calle RN - Comment: pt uncomfortable - grimacing) midazolam (VERSED) injection (CANCELED) ONCE PRN, Starting on Perla 02/19/12 at 0915, Until Perla 02/19/12 at 1438, Sleep, Intra-Operative (Intra-Procedure), Routine 0915 (Given - Provid er: Lissett Calle RN - Comment: starting sedation)0918 (Given - Provider: Lissett Calle RN - Comment: continuing sedation)0921 (Given - Provider: Lissett Calle RN - Comment: pt uncomfortable- 'THAT'S CRAMPY)0924 (Given - Provider: Lissett Calle RN - Comment: PT UNCOMFORTABLE) documented in this encounter Care Teams Airfreight Operations Agent Relationship Specialty Start Date End Date Berhane Kemp MD [address] [place] [address] PCP - General 01/29/10 03/04/15 documented as of this encounter
--- OUTSIDE RECORDS SUMMARY | 2024-04-14 02:15 | XMS_ITS | Encounter Summary ---
Author Organization [facility] [place] [address] Care Team Providers Care Lead Cashier Name Role Phone Valarie Phillips MD Primary Care Provider [phone] Reason for Visit * Reason Onset Date Comments Medication Refill 10/23/2017 Encounter Details Date Type Department Care Team (Late st Contact Info) Description 10/23/2017 [place] [phone] Bee Tejeda MD [facility] [place] [address] Crohn's disease of large intestine with other [...] PM EDT TH Visit (TeleHealth) [place] [phone] Malinda Christopher MD [facility] [place] [address] documented as of this encounter Visit Diagnoses Diagnosis Crohn's disease of large intestine with other complication documented in this encounter Care Teams Lead Cashier Relationship Specialty Start Date End Date Valarie Phillips MD [address] [place] [address] PCP - General General Internal Medicine 09/06/17 documented as of this encounter
--- OUTSIDE RECORDS SUMMARY | 2024-04-14 02:15 | XMS_ITS ---
[place] [address] Care Team Providers Care Manager Workers Compensation Name Role Phone Karey Robert APRN Primary Care Provider [phone] Gastroenterology Status:Un-enrolled (Enrolling) Start date:11/08/2020 Enrollment reason:Un-enrolled - MAP Current support & services provided:Prior Authorization Management, MAP Financial Assistance Linked medications:adalimumab (Active) Linked problems:Colonic Crohn's with mid small bowel segment (Active) Overview Patient filling through MAP Continued Care and Services Coordination
--- OUTSIDE RECORDS SUMMARY | 2024-04-14 02:15 | XMS_ITS | Encounter Summary ---
[place] [address] Care Team Providers Care Measurer Machine Name Role Phone Valarie Phillips MD Primary Care Provider [phone] Reason for Visit * Reason Onset Date Comments Medication Refill 10/29/2017 Encounter Details Date Type Department Care Team (Late st Contact Info) Description 10/29/2017 Refill [place] [address] Meme Garza RN Crohn's disease of large intestine with other [...] PM EDT TH Visit (TeleHealth) [place] [address] Malinda Christopher MD [facility] [place] [address] documented as of this encounter Visit Diagnoses Diagnosis Crohn's disease of large intestine with other complication documented in this encounter Care Teams Measurer Machine Relationship Specialty Start Date End Date Valarie Phillips MD [address] [place] [address] PCP - General General Internal Medicine 09/06/17 documented as of this encounter
--- OUTSIDE RECORDS SUMMARY | 2024-04-14 02:15 | XMS_ITS | Encounter Summary ---
Author Organization [facility] [place] [address] Care Team Providers Care Last Dipper Name Role Phone Valarie Phillips MD Primary Care Provider [phone] Encounter Details Date Type Department Care Team (Late st Contact Info) Description 10/02/2017 10:00 AM EDT - 10/02/2017 11:00 AM EDT Surgery [place] [id number] Moe Smith MD [facility] [place] [address] COLONOSCOPY FLEXIBLE, WITH BX (WRVU 3.56) Social [...] Sign Reading Time Taken Comments Blood Pressure 113/59 10/02/2017 10:50 AM EDT Pulse 97 10/02/2017 10:58 AM EDT Temperature - - Respiratory Rate 22 10/02/2017 10:58 AM EDT Oxygen Saturation 100% 10/02/2017 10:58 AM EDT Inhaled Oxygen Concentration - - [...] to be checked. Thursday-Thursday Same Day Endo [phone]-8p Otherwise contact [phone] and ask to speak to the end packer poultry boner Follow up care is a sma part of your treatment and safety. Be [...] PM EDT TH Visit (TeleHealth) Gastroenterology at [facility] [place] [address] Malinda Christopher MD [facility] [place] [address] documented as of this encounter Procedures Procedure [...] Report (10/02/2017 10:56 AM EDT) Final Diagnosis [id number] ? Location: 4T; EA10; A The signing [...] Roy MD Verified: ??10/06/2017 ?Pathologist Performed at: ??-[facility] [place] Dept. of Pathology, [place], [place] CLINICAL INFORMATION Specimen Submitted: A - [...] g: (T1) ??santiago 10/06/2017 4:30 PM EDT [facility] GI Biopsy 10/02/2017 10:5 6 AM EDT 10/02/2017 10:56 AM EDT GI Biopsy 10/02/2017 10:5 6 AM EDT 10/02/2017 10:56 AM EDT Moe Smith MD PATHOLOGY/CYTOLOGY O VINC[place]ZO Performing Organization Address [facility] Co de Phone Number [facility] [place] [address] * Specimen to Pathology (10/02/2017 10:56 AM EDT) AP Specimen 10/02/2017 10:5 6 AM EDT 10/02/2017 10:56 AM EDT Narrative [facility] - 10/02/2017 10:56 AM EDT Specimen requisition ordered. ??Separate Pathology report to follow Moe Smith MD PATHOLOGY/CYTOLOGY O [place] Performing Organization Address [facility] Co de Phone Number [facility] [place] [address] * Specimen to Pathology (10/02/2017 10:56 AM EDT) AP Specimen 10/02/2017 10:5 6 AM EDT 10/02/2017 10:56 AM EDT Narrative [facility] - 10/02/2017 10:56 AM EDT Specimen requisition ordered. ??Separate Pathology report to follow Moe Smith MD PATHOLOGY/CYTOLOGY O RDERABLES [facility] [place] [address] * COLONOSCOPY (10/02/2017 10:17 AM EDT) COLONOSCOPY [facility] Endoscopy Procedure Date: 10/02/2017 10:17 AM ? Patient Name: Janice Mahoney ? N: [id number] ? Date of : 1960 ? Age: 57 ? Order #: [id number] ? Instrument Name: [id number] ? Procedure: ? Colonoscopy Indications: ? Pt s/p hemorrhoid surgery continued ? pain and large anal skin tags, r/o ? Crohn's disease. LLQ pain Providers: ? Moe Smith MD, Taty Fuller ? Urban Mckinney, [employer] Referring MD: ?Valarie Phillips MD, Inna Laguna, [...] EDT Valarie Phillips MD [facility]D [facility] documented in this encounter Visit Diagnoses Not on filedocumented in this encounter Administered Medications Inactive Administered Medications - up to 3 most recent administrations Medication Order MAR Action Action Date Dose Rate Site fentaNYL 50 mcg/mL multi-dose injection ONCE PRN, Starting on Thu10/02/17 at 1020, Until Thu10/02/17 at 1416, Intra-Operative (Intra-Procedure), Routine Given 10/02/2017 10:31 AM EDT 50 mcg Given 10/02/2017 10:27 AM EDT 50 mcg Given 10/02/2017 10:23 AM EDT 50 mcg lidocaine (XYLOCAINE) 2 % jelly ONCE PRN, Starting on Thu10/02/17 at 1028, Until Thu10/02/17 at 1416, Intra-Operative (Intra-Procedure) Given 10/02/2017 10:28 AM EDT 1 Bottle midazolam (PF) (VERSED) 1 mg/mL multi-dose injection ONCE PRN, Starting on Thu10/02/17 at 1020, Until Thu10/02/17 at 1416, Intra-Operative (Intra-Procedure), Routine Given 10/02/2017 10:31 AM EDT 1 mg Given 10/02/2017 10:27 AM EDT 1 mg Given 10/02/2017 10:23 AM EDT 1 mg documented in this encounter Active [...] MD) documented in this encounter Care Teams Last Dipper Relationship Specialty Start Date End Date Valarie Phillips MD [address] [place] [address] PCP - General General Internal Medicine 09/06/17 documented as of this encounter
--- OUTSIDE RECORDS SUMMARY | 2024-04-14 02:15 | XMS_ITS | Encounter Summary ---
Author Organization [facility] [place] [address] Care Team Providers Care Network Development Coordinator Name Role Phone Valarie Phillips MD Primary Care Provider [phone] Encounter Details Date Type Department Care Team (Late st Contact Info) Description 10/14/2017 Orders [place] [phone] Bee Tejeda MD [facility] [place] [address] Crohn's disease of both small [...] as of this encounter Miscellaneous Notes * Addendum Note - Yaneli Contreras RN - 10/16/2017 1:11 PM EDTAddended by: YANELI CONTRERAS on: 10/16/2017 01:11 PM Modules accepted: Orders documented in this encounter Plan of Treatment Upcoming Encounters Date Type Department Care Team (Late st Contact Info) Description 07/18/2024 1:00 PM EDT TH Visit (TeleHealth) [place] [address] Malinda Christopher MD [facility] [place] [address] documented as of this encounter Results * Hepatitis B Core Antibody, Total (10/19/2017 10:47 AM EDT) Hepatitis B Core Antibody Negative Negative [facility] Blood specimen (specimen) 10/19/2017 10:47 AM EDT 10/19/2017 11:03 AM EDT Narrative Resulting Agency Comment Spec In Lab Bee Tejeda MD CHEMISTRY ORDERA BLES [facility] [place] [address] * QuantiFERON-TB Gold (10/19/2017 10:47 AM EDT) Quantiferon Nil 0.040 IU/mL [facility] QFT TB Ag1-Nil 0.020 IU/mL [facility] QFT TB Ag2-Nil 0.030 IU/mL [facility] Quantiferon Mitogen-Nil >10.000 IU/mL [facility] Quantiferon-TB Gold Negative Negative [facility] Quantiferon Tb Interp M. tuberculosis infection NOT likely A negative specimen should have a TB1 Ag minus Nil value and TB2 Ag minus Nil value of less than 0.35 IU/mL OR a TB1 Ag minus Nil or TB2 Ag minus Nil value greater than or equal to 0.35 IU/mL AND a TB Ag minus Nil value from the same tube of less than 25% of the Nil value. A negative specimen must also have a mitogen minus Nil value greater than or equal to 0.5 IU/mL. A negative QFT-Plus result does not preclude the possibility of M. tuberculosis infection. False negative results can occur due to stage of infection (specimen obtained prior to the development of immune response), co-morbid conditions which affect immune function, or other immunological factors. [facility] Comment: The performance of the QFT-Plus assay has not been extensively evaluated with specimens from the following individuals: Individuals who have impaired or altered immune functions, such as those who have HIV infection or AIDS, those who have transplantation managed with immunosuppressive treatment or others who receive immunosuppressive drugs (e.g., corticosteroids, methotrexate, azathioprine, cancer chemotherapy), those who have other clinical conditions, such as diabetes, silicosis, chronic renal failure, and hematological disorders (e.g., leukemia and lymphomas), or those with other specific malignancies (e.g., carcinoma of the head or neck and lung). Individuals younger than age 17 years women. Diagnosis of, or the exclusion of tuberculosis disease, and assessment of Latent Tuberculosis Infection (LTBI) requires a combination of epidemiological, historical, Medical and diagnostic findings that should be taken into account when interpreting QFT-Plus results. Blood specimen (specimen) 10/19/2017 10:47 AM EDT 10/20/2017 7:59 AM EDT Narrative Resulting Agency Comment Spec In Lab Bee Tejeda MD CHEMISTRY ORDERA BLES Performing Organization Address [facility] Co de Phone Number [facility] [place] [address] * Hepatitis B Surface Antigen (10/19/2017 10:47 AM EDT) Hepatitis B Surface Antigen Negative Negative [facility] Blood specimen (specimen) 10/19/2017 10:47 AM EDT 10/19/2017 11:03 AM EDT Narrative Resulting Agency Comment Spec In Lab Bee Tejeda MD CHEMISTRY ORDERA BLES Performing Organization Address [facility] Co de Phone Number [facility] [place] [address] * Hepatitis B Surface Antibody (10/19/2017 10:47 AM EDT) Hepatitis B Surface Antibody, Quantitative <3.5 IU/L [facility] Comment: HepB Surface Ab Quant: Unvaccinated: < 8.5 IU/L Vaccinated: > 11.5 IU/L Hepatitis B Surface Antibody Negative [facility] Comment: Patient is presumed to be not vaccinated or immune to HBV infection. Expected Results: Vaccinated: Positive Unvaccinated: Negative Blood specimen (specimen) 10/19/2017 10:47 AM EDT 10/19/2017 11:03 AM EDT Narrative Resulting Agency Comment Spec In Lab Bee Tejeda MD CHEMISTRY ORDERA BLES [facility] [place] [address] documented in this encounter Visit Diagnoses Diagnosis Crohn's disease of both small and large intestine without complication Regional enteritis of small intestine with large intestine documented in this encounter Care Teams Network Development Coordinator Relationship Specialty Start Date End Date Valarie Phillips MD [address] [place] [address] PCP - General General Internal Medicine 09/06/17 documented as of this encounter
--- OUTSIDE RECORDS SUMMARY | 2024-04-14 02:15 | XMS_ITS | Encounter Summary ---
[place] [address] Care Team Providers Care Obiee Consultant Name Role Phone Valarie Phillips MD Primary Care Provider [phone] Reason for Referral * Diagnostic Test (Routine) - Closed Specialty Diagnoses / Procedures Referred By Vashti zeng Referred To Contact Radiology Diagnoses Crohn's disease of large intestine with other complication Procedures MRI Enterography wwo Bee Hughes MD [facility] [place] [address] [place] [address] Referral ID Status Reason Start Date Expiration Date V isits Requested Visits Authorized [id number] Closed Specialty Service Requested 10/16/2017 12/14/2017 1 1 Reason for Visit * Diagnostic Test (Routine) - Closed Specialty Diagnoses / Procedures Referred By Vashti zeng Referred To Contact Radiology Diagnoses Crohn's disease of large intestine with other complication Procedures MRI Enterography wwo Contrast Bee Tejeda MD [place] [address] [place] [address] Referral ID Status Reason Start Date Expiration Date V isits Requested Visits Authorized [id number] Closed Specialty Service Requested 10/16/2017 12/14/2017 1 1 Encounter Details Date Type Department Care Team (Latest Contact Info) Description 10/29/2017 8:54 AM EDT - 10/29/2017 9:00 AM EDT Hospital Encounter MRI at [facility] [place] [address] Bee Tejeda [place] [address] Crohn's disease of large intestine with other complication Discharge Disposition: Home Social History Tobacco [...] as of this encounter Progress Notes * Sully Castle RN - 10/26/2017 8:55 AM EDT MRI PRE-SEDATION ASSESSMENT NOTE NAME: Janice Mahoney AGE: 57 y.o. : 1960 [address] [place] [address] Female [phone] (home) [phone] (work) Telephone Information: Valarie Phillips MD No primary care provider on file. Allergies Allergen Reactions ??? [place] ??? Polyethylene Glycol Analogues Hives Date/Time of call: October 26, 2017/8:55 AM/ PREVIOUS MRI SCAN? Yes HEIGHT: 5' WEIGHT: 129 lbs SCHEDULED SCAN: MRI ENTEROGRAPHY WITH/WO CONTRAST [[id number]] Question Answer Comment Where will study be performed? [facility] Reason for exam and clinical history: Croh'ns colitis with perianal involvement. Rule out small bowel Crohns SUBJECTIVE: I have problems with claustrophobia CAN YOU LAY FLAT? Yes AIRWAY ISSUES? No DO YOU HAVE ANY INVOLUNTARY MOVEMENTS? No DO YOU HAVE ANY PAIN? Yes, left lower quadrant DO YOU TAKE PAIN MED ON A DAILY BASIS? No, tylenol ASSESSMENT: Appropriate for PO sedation PLAN: NPO 4 hours pre scan at 0630, Ativan 1 mg po- one pill only due to breath holds ( [place]) You must have a medical driver present when you check in. This patient has been informed that they require a medical driver to drive them home after this procedure. In the absence of a medical driver, IR will not be able to sedate for your scan. Pt verbalized understanding of these instructions during the pre-procedure education via phone. , Keith Name of medical driver: Phone number PRIOR SCAN DATE/S SEDATION TYPE SUCCESSFUL OSH (multiple) No Yes 10/29/2017 MRI enterography w/wo Ativan 1mg PO yes Revised 08/04/17 documented in this encounter Plan of Treatment Upcoming Encounters Date Type Department Care Team (Late st Contact Info) Description 07/18/2024 1:00 PM EDT TH Visit (TeleHealth) [place] [address] Malinda Christopher MD [facility] [place] [address] documented as of this encounter Procedures Procedure [...] less severe than the colonicsegment. 1:03 PM Bee Tejeda MD IMG MRI ORDERABL ES documented in this encounter Visit Diagnoses Diagnosis Crohn's disease of large intestine with other complication documented in this encounter Administered Medications Inactive Administered Medications - up to 3 most recent administrations Medication Order MAR Action Action Date Dose Rate Site glucagon (human recombinant) injection SolR 1 mg 1 mg, Intramuscular, ONCE, 1 dose, On Perla 10/29/17 at 1115, Routine Given 10/29/2017 11:02 AM EDT 1 mg LORazepam (ATIVAN) tablet 1 mg 1 mg, Oral, ONCE PRN, 1 dose, Starting on Perla 10/29/17 at 0729, Until Perla 10/29/17 at 0945, Anxiety, MRI, Angio/IR (Day of Procedure), Routine Given 10/29/2017 9:45 AM EDT 1 mg documented in this encounter Care Teams Obiee Consultant Relationship Specialty Start Date End Date Valarie Phillips MD [address] [facility] [place] [address] PCP - General General Internal Medicine 09/06/17 documented as of this encounter
--- OUTSIDE RECORDS SUMMARY | 2024-04-14 02:15 | XMS_ITS | Encounter Summary ---
Author Organization [facility] Address [address] [place] [address] Care Team Providers Care Singer Songwriter Name Role Phone Unknown, Provider Primary Care Provider Unava ilable Encounter Details Date Type Department Care Team (Late st Contact Info) Description 02/23/2007 Results Only [facility] [address] [place] [address] Dahlia Blum MD [address] [place] [address] Social History Tobacco Use Types Packs/Day Years [...] Date/Time Associated Diagnosis Comments SURGICAL PATHOLOGY Routine 02/23/2007 0:00 EST documented in this encounter Results * SURGICAL PATHOLOGY (02/23/2007 0:00 EST) Pathology Report: SURGICAL PATHOLOGY REPORT Reports generated via electronic interface contain original data; however they are lacking the format of the original report. Caution should be taken when reading/interpreti ng unformatted reports. Name: ? FAYE MAHONEY ? Accession #: ? [id number] ? : ? 1960 (Age: 46) ??F ? Collect Date: ? 02/23/2007 ? Location: ? [facility] ? Receive Date: ? 02/24/2007 ? Provider: DAHLIA BLUM MD Copy to: KARYNA BELCHER MD ? Final Pathologic Diagnosis: ? Uterus and cervix, vaginal hysterectomy: 1. ?Cervix: ? - Nabothian cysts. - Mild parakeratosis. ? 2. ?? Endometrium: ? - Inactive endometrium. ? 3. ?? Myometrium: ? - Adenomyosis. ? - Cellular leiomyoma, intramural. ? - Leiomyomata, intramural, 5.5 cm in maximum dimension. ? 4. ?? Serosa: ? - No pathologic features. Document reviewed and electronically signed by: Marisol Bell MD Report ??Date: 02/26/2007 15:01 By the signature above, the attending physician certifies that he/she has personally conducted a gross and/or microscopic examination of the described specimens and rendered or confirmed the above diagnosis. Specimen(s) Received: ? Uterus and cervix Clinical History: ? Uterine prolapse and fibroids; LMP: 02/19/07; vaginal hysterectomy Gross Description: ? Received in formalin labelled Mahoney and A ??uterus + cervix is a 300 gram corpus uteri and cervix received in four pieces, which when pieced back together measures roughly 10.0 cm fundus to cervix, 11.0 cm cornu to cornu, and 6.0 cm anterior to posterior. ??The specimen does not include fallopian tubes or ovaries. ??The endometrium is generally smooth, light cooper, and measures 0.1 cm in thickness. ??The myometrium contains several scattered firm white myomas, which when sectioned do not have any areas of cystic degeneration or hemorrhage and which range from 5.5 cm to 0.3 cm in diameter. ??The myometrium, otherwise, is light cooper, firm, and measures up to 2.5 cm in thickness. ??The serosa is generally smooth and light cooper. ??The ecto- and endocervix are unremarkable and the squamocolumnar junction is discernible. ??Radio Despatcher sections of the specimen are submitted as follows: BLOCK FAGAN A1 ?Endomyometrium, full thickness A2, A3 ?Endomyometrium, full thickness, bisected A4-A7 ?Sixteen commercial sales representative sections of scattered myomas A8 ?Anterior and posterior cervix (Eitan Malhotra)/ljn End of Report [facility] 02/23/2007 02/24/2007 21: 00 EST us Dahlia Blum MD PATHOLOGY ORDERABLES Final Resu lt [facility] [address] [place] [address] documented in this encounter Visit Diagnoses Not on filedocumented in this encounter Care Teams Singer Songwriter Relationship Specialty Start Date End Date Unknown, Provider, PCP - General 01/29/09 05/25/14 documented as of this encounter
--- OUTSIDE RECORDS SUMMARY | 2024-04-14 02:15 | XMS_ITS | Encounter Summary ---
Author Organization [facility] [place] [address] Care Team Providers Care Farm Consultant Name Role Phone Valarie Phillips MD Primary Care Provider [phone] Encounter Details Date Type Department Care Team (Latest Contact Info) Description 10/19/2017 10:35 AM EDT Laboratory Appointment Lab [address] [place] [address] Crohn's disease of both small and large [...] PM EDT TH Visit (TeleHealth) [place] [address] Malinda Christopher MD [facility] [place] [place] [address] documented as of this encounter Procedures Procedure Name Priority Date/Time Associated Diagnosis Comments QUANTIFERON-TB GOLD Routine 10/19/2017 10:47 AM EDT Crohn's disease of both small and large intestine without complication HEPATITIS B CORE ANTIBODY, TOTAL Routine 10/19/2017 10:47 AM EDT Crohn's disease of both small and large intestine without complication HEPATITIS B SURFACE ANTIBODY Routine 10/19/2017 10:47 AM EDT Crohn's disease of both small and large intestine without complication HEPATITIS B SURFACE ANTIGEN Routine 10/19/2017 10:47 AM EDT Crohn's disease of both small and large intestine without complication documented in this encounter Results * Hepatitis B Core Antibody, Total (10/19/2017 10:47 AM EDT) Hepatitis B Core Antibody Negative Negative [facility] Blood specimen (specimen) 10/19/2017 10:47 AM EDT 10/19/2017 11:03 AM EDT Narrative Resulting Agency Comment Spec In Lab Bee Tejeda MD CHEMISTRY ORDERA BLES [facility] [place] [address] * QuantiFERON-TB Gold (10/19/2017 10:47 AM EDT) Quantiferon Nil 0.040 IU/mL [facility] QFT TB Ag1-Nil 0.020 IU/mL [facility] QFT TB Ag2-Nil 0.030 IU/mL [facility] Quantiferon Mitogen-Nil >10.000 IU/mL [facility] Quantiferon-TB Gold Negative Negative [facility] Quantiferon Tb Interp M. [...] affect immune function, or other immunological factors. [facility] Comment: The performance of the [...] MD CHEMISTRY ORDERA BLES Performing Organization Address [facility] Co de Phone Number [facility] [place] [address] * Hepatitis B Surface Antigen (10/19/2017 10:47 AM EDT) Hepatitis B Surface Antigen Negative Negative [facility] Blood specimen (specimen) 10/19/2017 10:47 AM EDT 10/19/2017 11:03 AM EDT Narrative Resulting Agency Comment Spec In Lab Bee Tejeda MD CHEMISTRY ORDERA BLES Performing Organization Address [facility] Co de Phone Number [facility] [place] [address] * Hepatitis B Surface Antibody (10/19/2017 10:47 AM EDT) Hepatitis B Surface Antibody, Quantitative <3.5 IU/L [facility] Comment: HepB Surface Ab Quant: Unvaccinated: < 8.5 IU/L Vaccinated: > 11.5 IU/L Hepatitis B Surface Antibody Negative [facility] Comment: Patient is presumed to be not vaccinated or immune to HBV infection. Expected Results: Vaccinated: Positive Unvaccinated: Negative Blood specimen (specimen) 10/19/2017 10:47 AM EDT 10/19/2017 11:03 AM EDT Narrative Resulting Agency Comment Spec In Lab Bee Tejeda MD CHEMISTRY ORDERA BLES [facility] [place] [address] documented in this encounter Visit Diagnoses Diagnosis Crohn's disease of both small and large intestine without complication Regional enteritis of small intestine with large intestine documented in this encounter Care Teams Farm Consultant Relationship Specialty Start Date End Date Valarie Phillips MD [address] [place] [address] PCP - General General Internal Medicine 09/06/17 documented as of this encounter
--- OUTSIDE RECORDS SUMMARY | 2024-04-14 02:15 | XMS_ITS | Encounter Summary ---
[place] [address] Care Team Providers Care Psychiatric Assistant Name Role Phone Valarie Phillips MD Primary Care Provider [phone] Encounter Details Date Type Department Care Team (Late st Contact Info) Description 10/07/2017 Telephone [place] [address] Tiny Sy Social History Tobacco Use Types Packs/Day Years [...] encounter Miscellaneous Notes * Telephone Encounter - Tiny Sy - 10/07/2017 3:49 PM EDT Janice returned my call informing me that she and Drs. Smith and Jase have communicated and she is to see Bee Tejeda for additional follow up. Janice has an appointment on 10/14/17 at 8:00a. documented in this encounter Plan of Treatment Upcoming Encounters Date Type Department Care Team (Late st Contact Info) Description 07/18/2024 1:00 PM EDT TH Visit (TeleHealth) [place] [address] Malinda Christopher MD [facility] [place] [address] documented as of this encounter Visit Diagnoses Not on filedocumented in this encounter Care Teams Psychiatric Assistant Relationship Specialty Start Date End Date Valarie Phillips MD [address] [place] [address] PCP - General General Internal Medicine 09/06/17 documented as of this encounter
--- OUTSIDE RECORDS SUMMARY | 2024-04-14 02:15 | XMS_ITS | Encounter Summary ---
Author Organization [facility] [place] [address] Care Team Providers Care Poem Writer Name Role Phone Valarie Phillips MD Primary Care Provider [phone] Encounter Details Date Type Department Care Team (Late st Contact Info) Description 10/16/2017 Orders [place] [address] Bee Tejeda MD [facility] [place] [address] Social History Tobacco Use Types Packs/Day Years [...] PM EDT TH Visit (TeleHealth) [place] [phone] Malinda Christopher MD [facility] [place] [address] documented as of this encounter Visit Diagnoses Not on filedocumented in this encounter Care Teams Poem Writer Relationship Specialty Start Date End Date Valarie Phillips MD [address] [place] [address] PCP - General General Internal Medicine 09/06/17 documented as of this encounter
--- OUTSIDE RECORDS SUMMARY | 2024-04-14 02:15 | XMS_ITS | Encounter Summary ---
Author Organization [facility] [place] [address] Care Team Providers Care Wood Window And Door Craftsman Name Role Phone Valarie Phillips MD Primary Care Provider [phone] Encounter Details Date Type Department Care Team (Late st Contact Info) Description 09/17/2017 Orders [place] [phone] Inan Laguna MD [facility] [place] [address] Social History Tobacco Use Types Packs/Day Years [...] PM EDT TH Visit (TeleHealth) [place] [phone] Malinda Christopher MD [facility] [place] [address] documented as of this encounter Visit Diagnoses Not on filedocumented in this encounter Care Teams Wood Window And Door Craftsman Relationship Specialty Start Date End Date Valarie Phillips MD [address] [place] [address] PCP - General General Internal Medicine 09/06/17 documented as of this encounter
--- OUTSIDE RECORDS SUMMARY | 2024-04-14 02:15 | XMS_ITS | Encounter Summary ---
Author Organization [facility] [place] [address] Care Team Providers Care Python Engineer Name Role Phone Valarie Phillips MD Primary Care Provider [phone] Reason for Visit * Reason Comments Medication Management Encounter Details Date Type Department Care Team (Late st Contact Info) Description 11/02/2017 Specialty Pharmacy [place] [address] Lakeisha Kent [facility] Social History Tobacco Use Types Packs/Day [...] Progress Notes * Lakeisha Meyer RPH - 11/02/2017 10:19 AM EDT Specialty Pharmacy Consultation; Lakeisha Meyer L[facility] Medication Management (CMM) Janice Mahoney Diagnosis: Crohn's Disease Ms. Janice Mahoney is a 57 y.o. (1960) female who was contacted in regard to specialty medication. Spoke with patient regarding ADALIMUMAB. A review of the medication therapy was performed. The medication will be filled once Janice notifies us when her injection teaching appointment is scheduled and she will pick it up the same day as the appointment. All medication related questions and concerns were addressed. The specialty pharmacy staff will follow up with the patient 7 days prior to next refill. Is the patient willing to proceed with the Clinical Assessment? Yes Allergies and Drug intolerance: Allergies Allergen Reactions ??? Quileute ??? Polyethylene Glycol Analogues Hives Medication Reconciliation Discrepancies (compared to [facility] med list) -none Medication Adherence Demonstrates understanding of importance of adherence: yes Informant: patient Reliability of informant: reliable Provider-estimated medication adherence level: 90-100% Reasons for non-adherence: no problems identified Adherence tools used: directed education Support network for adherence: healthcare provider Confirmed plan for next specialty medication refill: delivery by pharmacy Refills needed for supportive medications: not needed Medication List: Current Outpatient Prescriptions Medication Sig Dispense Refill ??? acetaminophen (TYLENOL) 325 mg Tablet Take [...] x 1 day 19 tablet 0 ??? Adalimumab (HUMIRA PEN CROHN'S-[facility] START) 40 mg/0.8 mL Pen Injector Kit Inject 160 mg subcutaneously on day 0, then 80 mg on day 14, then 40 mg every 14 days 4 Pen 0 ??? NIFEdipine, Bulk, Powder 0.2% ointment [...] No current facility-administered medications for this visit. Are you experiencing any side effects from your medication? no; has not started Humira yet Most Recent Vitals: Ht Readings from Last [...] beneficiary Provider: plan sponsor pharmacist Visit Type: [facility] Follow-up Method of Contact: by telephone Cognitive [...] the counter products discussed, preventative care discussed, self-monitoring discussed, start medication discussed, timing of medications discussed, vaccination discussed, [...] the counter products discussed, preventative care discussed, self-monitoring discussed, start medication discussed, timing of medications discussed, vaccination discussed, lifestyle modification education Time spent: 16-30 min Treatment Outcomes No data found. Reviewed in detail with patient: Dose appropriateness based on recommended standard dosing Current medication list including OTC medications Medication and disease problems Allergies Comorbid conditions Past adverse events if any Special needs of the patient including physical and cognitive limitations Goals of therapy and management strategies Warnings, precautions, and contraindications Side effects Drug-drug and drug-food interactions Administration instructions Handling, storage, and disposal of the medication Relevant lab data Appropriate Therapy: Yes Effective: to be determined Educational information or adherence tools provided? Yes F/u needed? Yes Received welcome packet: Yes Informed patient of specialty pharmacy services: Yes Summary/Recommendations: Prescription is appropriate as written. Janice was contacted for initial pharmacist consultation regarding Humira. She is happy to be able to get started on treatment with Humira. We reviewed the medication in detail including infection control strategies, common side effects, risks of Humira, and s torage/handling. Janice does typically get the yearly flu vaccine and she is aware to notify the provider of any signs/symtpoms of infections while on Humira. We reviewed to avoid live vaccines as well. We also discussed regular lab monitoring while on the Humira which the office will detail with her. Janice plans on coming for an injection teaching appointment with Meme. She is going to call the office to schedule this and will let us know once she has a day/time. 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 Of note, Janice prefers a 3 month supply for the maintenance prescription of the Humira. She understands that the insurance may limit this. We will follow-up with Janice in one month to assess efficacy and tolerability. She will be going away from Nov 28- so we will call before this to allow for plenty of time to get this set up. No recommendations at this time. Pt understands no changes to current drug regimen were made at the appointment and that [facility] is providing recommendations (summary located at top of note) for provider review and follow up. Lakeisha Meyer RPH 11/02/17 10:25 AM documented in this encounter Plan of Treatment Upcoming Encounters Date Type Department Care Team (Late st Contact Info) Description 07/18/2024 1:00 PM EDT TH Visit (TeleHealth) [place] [address] Malinda Christopher MD [facility] [place] [address] documented as of this encounter Goals Goal Patient Goal Type Associated Problems Recent Progress Patient-Stated? Author [facility] Medication Compliance and Understanding Patient Facing Action Plan Lakeisha Matos [facility] Note: Achieve and maintain control of Crohn's symptoms as assessed by specialist every 3 to 6 months or more documented as of this encounter Visit Diagnoses Not on filedocumented in this encounter Care Teams Python Engineer Relationship Specialty Start Date End Date Valarie Phillips MD [address] [place] [address] PCP - General General Internal Medicine 09/06/17 documented as of this encounter
--- OUTSIDE RECORDS SUMMARY | 2024-04-14 02:15 | XMS_ITS | Encounter Summary ---
Author Organization [facility] Address [address] [place] [address] Care Team Providers Care Brick Picker Name Role Phone Berhane Kemp MD Primary Care Provider [phone] Reason for Visit * Reason Onset Date Comments Advice Only 02/08/2015 Encounter Details Date Type Department Care Team (Late st Contact Info) Description 02/08/2015 Telephone [facility] Hematology & Oncology - [address] [address] Ivet Read MD [address] [facility] [address] [place] [address] Advice Only Social History Tobacco Use Types Packs/Day Years Used Date Smoking Tobacco: Never Assessed Comments Unknown Sex and Gender Information Value Date Recorded Sex Assigned at Not on file Legal Sex Female 17:44 EST Gender Identity Not on file Sexual Orientation Not on file documented as of this encounter Miscellaneous Notes * Telephone Encounter - Inna Key - 02/13/2015 1334 EST I spoke with Janice and let her know that she needs to come in for an appointment if she would likequestions regarding protein C defiency answered she would need to come in for a new patient visit. Alina was not pleased with the answer she received from me. I let her know that her surgeon should call an speak with our core checker here if the surgeon has concerns. * Telephone Encounter - Inna Key - 02/12/2015 1550 EST I called Alina and left a message with my name and direct telephone number to give me a call back to see if she would like to schedule an appointment to go over any questions she has before surgery. * Telephone Encounter - Cee Mejia - 02/08/2015 1650 EST Reason for Call: Advice Only Summary/Symptoms: Pt calling to speak with the nurse. States she was apart of a protein c defiency study in 2002. Per pt she has a letter stating that she can call with questions. Pt states she has surgery 02/28, would like to know the protocol for blood thinners. Please call. Cee Mejia 02/08/2015 16:50 documented in this encounter Plan of Treatment Not on file documented as of this encounter Visit Diagnoses Not on filedocumented in this encounter Care Teams Brick Picker Relationship Specialty Start Date End Date Berhane Kemp MD [address] [place] [address] PCP - General 05/26/14 02/18/15 documented as of this encounter
--- OUTSIDE RECORDS SUMMARY | 2024-04-14 02:15 | XMS_ITS | Encounter Summary ---
Author Organization [facility] [place] [address] Care Team Providers Care Test And Turn Up Technician Name Role Phone Valarie Phlilips MD Primary Care Provider [phone] Encounter Details Date Type Department Care Team (Late st Contact Info) Description 10/19/2017 Orders [place] [address] Bee Tejeda MD [facility] [place] [address] Social History Tobacco Use Types Packs/Day Years [...] PM EDT TH Visit (TeleHealth) [place] [address] Malinda Christopher MD [facility] [place] [address] documented as of this encounter Visit Diagnoses Not on filedocumented in this encounter Care Teams Test And Turn Up Technician Relationship Specialty Start Date End Date Valarie Phillips MD [address] [place] [address] PCP - General General Internal Medicine 09/06/17 documented as of this encounter
--- OUTSIDE RECORDS SUMMARY | 2024-04-14 02:15 | XMS_ITS | Encounter Summary ---
[place] [address] Care Team Providers Care Gear Milling Machine Set Up Operator Name Role Phone Valarie Phillips MD Primary Care Provider [phone] Encounter Details Date Type Department Care Team (Late Contact Info) Description 10/27/2017 Orders [place] [address] [place] [address] Social History Tobacco Use Types Packs/Day Years [...] as of this encounter Progress Notes * Bee Tejeda MD - 10/27/2017 4:01 PM EDT I spoke with Janice and informed her that her insurance company has denied the Humira. Therefore, Iwould like for her to try prednisone to see if her symptoms are improving. I have written a prescription to her pharmacy in . . documented in this encounter Plan of Treatment Upcoming Encounters Date Type Department Care Team (Late st Contact Info) Description 07/18/2024 1:00 PM EDT TH Visit (TeleHealth) [place] [address] Malinda Christopher MD [facility] [place] [address] documented as of this encounter Visit Diagnoses Not on filedocumented in this encounter Care Teams Gear Milling Machine Set Up Operator Relationship Specialty Start Date End Date Valarie Phillips MD [address] [place] [address] PCP - General General Internal Medicine 09/06/17 documented as of this encounter
--- OUTSIDE RECORDS SUMMARY | 2024-04-14 02:15 | XMS_ITS | Encounter Summary ---
Author Organization [facility] Address [address] [place] [address] Care Team Providers Care Director Child Name Role Phone Unknown, Provider Primary Care Provider Unava ilable Encounter Details Date Type Department Care Team (Latest Contact Info) Description 05/25/2014 16:17 EDT - 05/25/2014 23:59 EDT Hospital Encounter [address] [address] Unknown, Provider, Discharge Disposition: Home or Self Care Social History Tobacco Use Types Packs/Day Years Used Date Smoking Tobacco: Never Assessed Comments Unknown Sex and Gender Information Value Date Recorded Sex Assigned at Not on file Legal Sex Female 17:44 EST Gender Identity Not on file Sexual Orientation Not on file documented as of this encounter Discharge Disposition Disposition Code Departure Means Destination Home or Self [facility] documented in this encounter Plan of Treatment Not on file documented as of this encounter Visit Diagnoses Not on filedocumented in this encounter Care Teams Director Child Relationship Specialty Start Date End Date Unknown, Provider, PCP - General 01/29/09 05/25/14 documented as of this encounter
--- OUTSIDE RECORDS SUMMARY | 2024-04-14 02:15 | XMS_ITS | Encounter Summary ---
Author Organization [facility] Address [address] [place] [address] Care Team Providers Care Fish Tender Name Role Phone Berhane Kemp MD Primary Care Provider [phone] Berhane Kemp MD Unavailable [phone] Reason for Visit * Reason Comments New Patient Visit * Consult (Routine) - Closed Specialty Diagnoses / Procedures Referred By Vashti zeng Referred To Contact Hematology and Oncology Diagnoses Protein C deficiency (HCC-CMS) Self, Referral [facility] Hematology & Oncology [address] [address] Phone: tel: fax: Referral ID Status Reason Start Date Expiration Date Visits Re quested Visits Authorized [id number] Closed 1 1 Encounter Details Date Type Department Care Team (Late st Contact Info) Description 02/23/2015 15:00 EST Office Visit [facility] Oncology [address] [id number] Jamar Walters MD [address] [place] [phone] Family history of protein C deficiency (Primary Dx); Family history of deep venous thrombosis Social History Tobacco Use Types Packs/Day Years [...] Index - - documented in this encounter Progress Notes * Jamar Walters MD - 02/24/2015 0936 EST Thrombosis & Hemostasis Program (THP) Consult H&P Date of Service: 02/24/2015 PCP: Berhane Kemp Referring MD: Referral Self Chief Complaint Patient presents with ??? New Patient Visit HPI: Janice Mahoney is a 54 yo female with a strong family history of protein C deficiency, part of the [place], with multiple first degree relatives with history of thromboses and Protein C, as well as a reported history of Protein C deficiency herself diagnosed (?In 2002) as part of a research study but without available results who presents prior to a planned shoulder surgery for VTE prophylaxis and anticoagulation planning. The patient is planning to have a left shoulder rotator cuff repair on March [address] Christophe Gann at the [facility]. Other than left shoulder pain that somewhat interferes with her work she describes her general health as excellent. She has never had any history of thrombosis.She denies easy bleeding or bruising. She denies leg pains, heaviness, swelling, cramps, or itching. She is post menopausal and has 12-20 hot flashes per day but no history of estrogen replacement. She had a benign screening colonoscopy in 2011 (next planned for 10 years later). At age 44 she had a hysterectomy and did not receive VTE prophylaxis or anticoagulation as far as she remembers. At age 54 she had a gallbladder surgery and received lovenox for 10 days. She did not have complications with either procedure. Last mammogram was in 2014. ROS: (Intake form with complete ROS reviewed and scanned into PRISM) 10 point review of symptoms was otherwise negative with details below. Pertinent positives: left shoulder pain, left arm numnbess due to shoulder. Hot flashes, benign cyst noted 8-9 months ago Pertinent negatives: fevers, chills, anorexia, weight loss, eye problems, ear problems, mouth lesions, chest pain, palpitations, nausea, vomiting, diarrhea, bladder problems, skin lesions, thyroid problems, easy bruising, heavy periods, depression, anxiety, headaches. Past Medical History: Patient has a past medical history of Rotator cuff disorder and IBS (irritable bowel syndrome). Past Surgical History: Patient has past surgical history that includes Hysterectomy and Gallbladder surgery. Family History: Patient's Family History Problem Relation Age of Onset ??? Clotting Disorder Sister aortic clot after surgery at age 45. known protein c? Clotting Disorder Other sister's son with arterial clots requiring leg amputation. Apparently had Factor V leiden thought to be from father's side of the family ??? Clotting Disorder Daughter superficial venous thrombosis during ??? Clotting Disorder Father ankle clot at age 83 Social History: Patient reports that she quit smoking about 21 years ago. She has never used smokeless tobacco. Shereports that she drinks alcohol. 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 . Does not exercise regularly. Medications: Current Outpatient Prescriptions Medication Sig Dispense Refill ??? calcium carbonate (TUMS) 200 mg calcium (500 mg) tablet,chewable Take 1 Tab by mouth 4 times daily as needed ??? ibuprofen (MOTRIN) 200 mg tablet Take 200 mg by mouth every 6 hours ??? Multivitamins with Minerals tablet Take 1 Tab by mouth daily No current facility-administered medications for this visit. Allergies: Patient is allergic to polyethylene glycol analogues. Physical Exam: Filed Vitals: 02/23/15 1454 BP: 144/65 Pulse: 78 Temp: 35.9 ??C (96.6 ??F) TempSrc: Tympanic Resp: 16 Weight: 62.642 kg (138 lb 1.6 oz) SpO2: 99% Reportedly 5 feet tall, 138 lbs (BMI 26.9) Gen: No acute distress, alert and oriented times three; conversing appropriately Head/Eyes/Neck/Throat: Atraumatic; Pupils equal Lymph: No lymphadenopathy of cervical, clavicular, axillary region Pulm: Clear to auscultation, No wheeze, good air movement throughout CV: Regular rate and rhythm, no murmurs, no carotid bruits Abd: Soft, non-tender, non-distended, obese abdomen MSK: Equal strength throughout, patient witnessed ambulating well in hallway Neuro: No focal deficits, Moving all extremities Skin: skin warm and dry Legs: Right: No edema, cords, hemosiderin deposits, varicose veins, erythema or tenderness. Good distal pulses. Left: No edema, cords, hemosiderin deposits, varicose veins, erythema or tenderness. Good distal pulses. Labs n/a Imaging: n/a Assessment: Mrs. Mahoney is a member of the [place], a close knit family in the [facility] with strong familial history of thrombosis that has been extensively studied and found to have Protein C deficiency. I did discuss with the coag lab and initial Protein C activity should be run on 02/26/15 but we will not get antigen level back prior to surgery 1 week later. Because of the reported historyof prior testing showing Protein C deficiency and the strong family history of multiple first degree relatives with thromboses, I would err on the side of providing VTE prophylaxis even without complete work-up in this patient and without a personal history of thrombosis. Plan: - Would recommend 14 day course of VTE prophylaxis with 40 mg lovenox subq qdaily OR apixaban 2.5 mg PO qdaily once adequate hemostasis is achieved. If patient's shoulder requires prolonged immobilzation (i.e. Shoulder requires sling or cast and unable to mobilize with PT etc) would continue VTE prophylaxis until patient is no longer immobilized. Will defer to PCP/surgeon to order prophylaxis as per above. - Will check Protein C activity and antigen (ordered) - Would confirm that a CBC and BMP has previously been checked to confirm renal function and Hgb normal but assume given prior surgeries and VTE prophylaxis this has been done previously. - Advised the patient that if protein C confirmed very important to avoid warfarin initiation without bridge therapy with heparin or LMWH etc due to transient hypercoagulability. Thank you for this interesting consultation. Please contact my office with questions. . Jamar Walters MD cc: Berhane Phillips - [facility] Internal Medicine Christophe Gann - [facility] [address] [place] [address] documented in this encounter Plan of Treatment Not on file documented as of this encounter Procedures Procedure Name Priority Date/Time Associated Diagnosis Comments OUTPATIENT ADD-ON Routine 02/24/2015 10: 31 EST Family history of protein C deficiency Family history of deep venous thrombosis documented in this encounter Results * OUTPATIENT ADD-ON (02/24/2015 10:31 EST) Tests to be added CBC, BMP 02/24/2015 10:32 EST [facility] Diagnosis Code SEE PRISM 02/24/2015 11:11 EST [facility] Number for problems PAS 02/24/2015 10:32 EST [facility] Accession number INFORMED DR WALTERS THAT WE CANNOT ADD ON WE ONLY HAVE BLUE TOPS FROM 02/2302/24/2015 11:11 EST [facility] Acknowledge ABP DONE 5 11:11 EST [facility] BLOOD SPECIMEN / Unknown 02/24/2015 10:31 EST 02/24/2015 11:10 EST Jamar Walters MD HEMATOLOGY & PF4 ORDERABLES Final Result [facility] [address] [place] [address] documented in this encounter Visit Diagnoses Diagnosis Family history of protein C deficiency- Primary Family history of deep venous thrombosis Family history of other cardiovascular diseases documented in this encounter Historical Medications * This list may reflect changes made after this encounter. Multivitamins with Minerals tablet Take 1 Tab by mouth daily calcium carbonate (TUMS) 200 mg calcium (500 mg) tablet,chewable Take 1 Tab by mouth 4 times daily as needed ibuprofen (MOTRIN) 200 mg tablet Take 200 mg by mouth every 6 hours added in this encounter Care Teams Fish Tender Relationship Specialty Start Date End Date Berhane Kemp MD [address] [place] [id number] PCP - General 02/21/15 Berhane Kemp MD [address] [place] [address] 02/19/15 documented as of this encounter
[2024-04-19 11:37] LABS: Apolipoprotein B, Serum 112 mg/dL (48-124); Beta VLDL Cholesterol Not Detected mg/dL (<15); Beta VLDL Triglycerides Not Detected mg/dL (<15); Cholesterol, Total, CDC 266 mg/dL; Chylomicron Cholesterol Not Detected; Chylomicron Triglycerides Not Detected; HDL Cholesterol, CDC 91 mg/dL (>=50); LDL Cholesterol 136 mg/dL; LDL Triglycerides 48 mg/dL (<=50); Lp(a) Cholesterol 14 mg/dL (<5); LpX Not detected; Triglycerides, CDC 118 mg/dL; VLDL Cholesterol 25 mg/dL (<30); VLDL Triglycerides 51 mg/dL (<120)
== END 2024-04-14 02:02 | disposition home or self-care (01) ==
LOC: LBO 02:01
PROVIDERS: PCP Nurse Practitioner Adult Health; Visit Provider Nurse Practitioner Adult Health
DX: E78.5 Hyperlipidemia, unspecified (principal)
CPT/HCPCS: 36415; 80061; 82172; 82664

== ENCOUNTER 2024-07-22 00:53 | Outpatient (CLI) | payer MEDICARE, SELFPAY ==
[2024-07-22 08:29] LABS: Anion Gap 2.8 mmol/L (3-11); BUN 15 mg/dL (7-18); CO2 30.2 mmol/L (21.0-32.0); CREATININE 0.6 mg/dL (0.55-1.02); Calcium 8.7 mg/dL (8.5-10.1); Chloride 107 mmol/L (98-107); Estimated GFR 99.55 (mL/min/1.73m2); Glucose 90 mg/dL (74-106); Potassium 4.3 mmol/L (3.5-5.1); Sodium 140 mmol/L (136-145)
[2024-07-27 15:16] LABS: Apolipoprotein B, Serum 94 mg/dL (48-124); Beta VLDL Cholesterol Not Detected mg/dL (<15); Beta VLDL Triglycerides Not Detected mg/dL (<15); Cholesterol, Total, CDC 226 mg/dL; Chylomicron Cholesterol Not Detected; Chylomicron Triglycerides Not Detected; HDL Cholesterol, CDC 88 mg/dL (>=50); LDL Cholesterol 102 mg/dL; LDL Triglycerides 40 mg/dL (<=50); Lp(a) Cholesterol 11 mg/dL (<5); LpX Not detected; Triglycerides, CDC 143 mg/dL; VLDL Cholesterol 25 mg/dL (<30); VLDL Triglycerides 77 mg/dL (<120)
== END 2024-07-22 00:54 | disposition home or self-care (01) ==
PROVIDERS: Internal Medicine Gastroenterology; PCP Nurse Practitioner Adult Health; Visit Provider Nurse Practitioner Adult Health
DX: E78.00 Pure hypercholesterolemia, unspecified (principal); K50.119 Crohn's disease of large intestine with unspecified complications
CPT/HCPCS: 36415; 80048; 80061; 82172; 82664

== ENCOUNTER 2024-08-08 12:16 | Outpatient (CLI) | payer MEDICARE, SELFPAY ==
[2024-08-08 12:28] LABS: Abs Immature Grans 0.01 10^3/uL (0.0-0.06); Absolute Basophil Count 0.03 10^3/uL (0.0-0.2); Absolute Eosinophil Count 0.14 10^3/uL (0.0-0.7); Absolute Lymphocyte Count 2.61 10^3/uL (1.2-3.4); Absolute Neutrophil Count 2.89 10^3/uL (1.2-6.7); Basophils % 0.5 %; Eosinophils % 2.2 %; HCT 37.6 % (36.0-46.0); HGB 12.1 g/dL (11.2-15.7); Immature Grans % 0.2 %; Lymphocytes % 41.6 %; MCH 29.7 pg (27.0-33.0); MCHC 32.2 % (32.0-36.0); MCV 92 fL (80-95); MPV 8.9 fL (8.0-11.0); Monocytes % 9.6 %; Neutrophils % 45.9 %; Platelet Count 248 10^3/uL (130-400); RBC 4.07 10^6/uL (3.93-5.22); RDW 12.1 % (11.7-14.6); RDW-SD 41.1 fL; WBC 6.28 10^3/uL (4.4-10.8)
[2024-08-08 12:59] LABS: C-Reactive Protein 6.11 mg/dL (<or=0.5)
== END 2024-08-08 12:17 | disposition home or self-care (01) ==
LOC: LBO 12:17
PROVIDERS: PCP Nurse Practitioner Adult Health; Visit Provider Nurse Practitioner Adult Health
DX: K57.92 Diverticulitis of intestine, part unspecified, without perforation or abscess without bleeding (principal); K50.919 Crohn's disease, unspecified, with unspecified complications
CPT/HCPCS: 36415; 85025; 86140

== ENCOUNTER 2024-08-18 10:23 | Outpatient (CLI) | payer MEDICARE, SELFPAY ==
--- NOTE | 2024-08-18 10:15 | DI.RAD_ITS ---
Exam(s) XR SACRUM COCCYX EXAM: XR SACRUM COCCYX CLINICAL HISTORY: Coccyx pain, M53.3-sacrococcygeal disorders. TECHNIQUE: 2D digital imaging was performed. COMPARISON: No exams were available for comparison FINDINGS: 3 views No evidence of fracture. No osseous lesions. Left SI joint appears unremarkable. There appears to be some degenerative change in the superior aspect of the right sacroiliac joint. Partially visualized hips appear unremarkable. IMPRESSION: Mild degenerative changes in the right sacroiliac joint. DATA REPOSITORY: RADIATION DOSE DELIVERED:
--- NOTE | 2024-08-18 10:15 | DI.RAD_ITS ---
Exam(s) XR LUMBAR SPINE COMPLETE EXAM: XR LUMBAR SPINE COMPLETE CLINICAL HISTORY: Lumbar pain, LBP, M54.50. TECHNIQUE: 2D digital imaging was performed. COMPARISON: CR XR DEXA BONE DENSITY W/WO SALOMON from 12/17/2023 FINDINGS: Five views No evidence of fracture, listhesis, nor pars defects. No disc space narrowing. No osseous lesions. Bone density normal. No obvious scoliosis. No obvious facet arthropathy. IMPRESSION: No significant osseous findings in the lumbosacral spinal column. DATA REPOSITORY: RADIATION DOSE DELIVERED:
== END 2024-08-18 10:43 ==
LOC: DI 10:23
PROVIDERS: PCP Nurse Practitioner Adult Health; Visit Provider Nurse Practitioner Family
DX: M54.50 Low back pain, unspecified (principal); M53.3 Sacrococcygeal disorders, not elsewhere classified
CPT/HCPCS: 72110; 72220

== ENCOUNTER 2024-09-13 10:52 | Outpatient (CLI) | payer MEDICARE, SELFPAY ==
--- NOTE | 2024-09-13 10:45 | DI.MRI_ITS ---
Exam(s) MR LUMBAR SPINE WO EXAM: MR LUMBAR SPINE WO CLINICAL HISTORY: Persistent pain despite medical tx rt Lumbar Radiculopathy M54.16. TECHNIQUE: Multiplanar multisequence MRI of the Lumbar spine was performed. COMPARISON: CR XR LUMBAR SPINE COMPLETE from 08/18/2024 CR XR SACRUM COCCYX from 08/18/2024 FINDINGS: Bones: The last intervertebral disc space is designated the L5/S1 level for the numbering purpose of this examination. The vertebral body heights are well maintained. Alignment: Unremarkable. The marrow signal characteristics are unremarkable. Cord: The conus tip ends at the T12 level. It is of normal size and signal intensity. T12-L1: No focal disc herniation is present. No central spinal canal stenosis.No neural foraminal stenosis. L1-2: No focal disc herniation is present. No central spinal canal stenosis.No neural foraminal stenosis. L2-3: No focal disc herniation is present. No central spinal canal stenosis.No neural foraminal stenosis. L3-4: No focal disc herniation is present. No central spinal canal stenosis.No neural foraminal stenosis. L4-5: The disc height is normal. There is a large right lateral disc protrusion impinging on the exiting nerve root. The herniated disc material measures approximately 12 by 7 by 12 millimeters. No central spinal canal stenosis.No neural foraminal stenosis. L5-S1: No focal disc herniation is present. No central spinal canal stenosis.No neural foraminal stenosis. The visualized SI joints and sacrum are unremarkable. Soft tissues: The paraspinal soft tissues are unremarkable. The aorta is normal in diameter. The kidneys and spleen are normal in size. IMPRESSION: Right lateral disc protrusion at L4-5 impinging on the exiting nerve root. The remaining discs are intact. There is no significant bony neural foraminal narrowing or spinal stenosis at any level. DATA REPOSITORY:
== END 2024-09-13 11:12 ==
LOC: DI 10:53
PROVIDERS: PCP Nurse Practitioner Adult Health; Visit Provider Nurse Practitioner Adult Health
DX: M54.16 Radiculopathy, lumbar region (principal)
CPT/HCPCS: 72148

== ENCOUNTER 2024-12-28 01:35 | Outpatient (CLI) | payer MEDICARE, SELFPAY ==
[2024-12-28 12:03] LABS: Abs Immature Grans 0.02 10^3/uL (0.0-0.06); HCT 38.1 % (36.0-46.0); HGB 12.4 g/dL (11.2-15.7); Immature Grans % 0.3 %; MCH 29.8 pg (27.0-33.0); MCHC 32.5 % (32.0-36.0); MCV 92 fL (80-95); MPV 8.6 fL (8.0-11.0); Platelet Count 252 10^3/uL (130-400); RBC 4.16 10^6/uL (3.93-5.22); RDW 11.8 % (11.7-14.6); RDW-SD 39.6 fL; WBC 6.43 10^3/uL (4.4-10.8)
[2024-12-28 12:48] LABS: ALT 34 U/L (14-59); AST 23 U/L (15-37); Albumin 3.7 g/dL (3.4-5.0); Alkaline Phosphatase 79 U/L (46-116); Anion Gap 8.0 mmol/L (3-11); BUN 21 mg/dL (7-18); Bilirubin, Direct 0.1 mg/dL (0.0-0.2); Bilirubin, Total 0.4 mg/dL (0.2-1.0); CO2 27.0 mmol/L (21.0-32.0); Calcium 8.6 mg/dL (8.5-10.1); Chloride 104 mmol/L (98-107); Estimated GFR 95.92 (mL/min/1.73m2); Glucose 90 mg/dL (74-106); Potassium 4.5 mmol/L (3.5-5.1); Sodium 139 mmol/L (136-145); Total Protein 7.4 g/dL (6.4-8.2)
[2024-12-28 12:50] LABS: C-Reactive Protein < 0.50 mg/dL (<or=0.5)
== END 2024-12-28 01:36 | disposition home or self-care (01) ==
PROVIDERS: PCP Nurse Practitioner Adult Health; Visit Provider Internal Medicine Gastroenterology
DX: K50.119 Crohn's disease of large intestine with unspecified complications (principal); Z51.81 Encounter for therapeutic drug level monitoring; Z79.620 Long term (current) use of immunosuppressive biologic
CPT/HCPCS: 36415; 80048; 80076; 85025; 86140

== ENCOUNTER → 2025-02-15 00:17 | Outpatient (CLI) | payer MEDICARE, SELFPAY ==
--- NOTE | 2025-02-15 08:45 | DI.MAMMO_ITS ---
Exam(s) MAMMO SCREENING EXAM: MAMMO SCREENING CLINICAL HISTORY: screening,Z12.39. TECHNIQUE: Bilateral full field digital CC and MLO mammographic images were obtained with 3D tomosynthesis and utilizing computer aided detection (CAD). COMPARISON: Prior mammograms were reviewed. FINDINGS: There has been no significant change in the appearance and distribution of the fibroglandular tissue. Benign-appearing breast nodules are unchanged from prior mammograms. There are no new spiculated masses nor new malignant appearing microcalcification groups. There is no significant architectural distortion nor skin thickening-retraction. IMPRESSION: Stable benign-appearing findings. No radiographic evidence of malignancy. BI-RADS Category 2 - Benign Findings Breast Density - Category B - There are scattered areas of fibroglandular density. Breast density Category C or D implies that the patient has dense breast tissue. Dense breast tissue can make it harder to find cancer on a mammogram. Dense breast tissue is also associated with an increased risk of breast cancer. This information about the result of the mammogram report was provided to the patient to raise their awareness. Use this report when you speak with the patient about their risks for breast cancer, which includes their family history. At that time, you may recommend additional screening tests (Ultrasound or MRI) as these tests may add significant information. A negative radiographic report should not delay biopsy if a dominant or clinically suspicious mass is present. Up to ten percent of cancers are not identified on mammography. A negative report may reinforce clinical impression. Adenosis and dense breasts may obscure an underlying neoplasm. False positive reports average 6 to 10%. Patient will receive a letter notifying them of these results.
== END ==
LOC: DI 00:17
PROVIDERS: PCP Nurse Practitioner Adult Health; Visit Provider Nurse Practitioner Adult Health
DX: Z12.31 Encounter for screening mammogram for malignant neoplasm of breast (principal); R92.323 Mammographic fibroglandular density, bilateral breasts
CPT/HCPCS: 77063; 77067